=== PATIENT | male | born 1950 | race Caucasian/White ===

== ENCOUNTER 2016-10-22 15:02 | Inpatient (IN) | payer MEDICARE, OTHER ==
[~2016-10-22] VITALS: Ht 193 cm; Wt 110.4 kg
[2016-10-22] VITALS (7 sets, daily range): BP systolic 144–176; BP diastolic 65–88; PULSE 56–63; RESP 14–20; TEMP 98.8; O2SAT 93–96
[~2016-10-22 15:02] MED LIST: ASPI-147 PO; COUM6TAB PO; DOXY100C PO; FERR200T PO; FOLI1TAB4 PO; FURO1TAB62 PO; HUMALOG SQ; KETO0.5S2 RIGHT EYE; LANTUS2P SQ; MAGN250T2 PO; NEUR400C PO; OMEP20TA PO; OXYC1TAB13 PO; PROS5TAB PO; SENN8.6C PO; SOTA80 PO; TACR1 PO; TAMS0.4C4 PO
--- NOTE | 2016-10-22 17:03 | PD ---
HPI Chief Complaint: Abnormal Results Time Seen by Provider: 16:59 Travel History International Travel<30 days: No Contact w/Intl Traveler<30days: No Traveled to known affect area: No History of Present Illness HPI 66-year-old male that presents to the ED for evaluation of abnormal blood results. Per patient he went [place] the [place] to get his regular checkup and her blood work did show some blood in the urine and a low hemoglobin of 8 per mother and patient. Unfortunately patient did not bring any of these records but he was told by the [place] to come here to get evaluated. Patient states having some chronic back pain which is normal for him. He does tell me that for the past 5 days his been having more cough and runny nose as well as shortness of breath. He does also tell me that his legs have been getting more swollen and he is no longer taking Lasix secondary to some problems with his kidney. He does take warfarin for atrial fibrillation. He denies any chest pain. She denies any urinary or bowel movement issues. He denies any blood in the stool. Per patient he feels weak and tired. He denies any headache or lightheadedness. Per patient the pain on the back is 7 out of 10 but this is chronic and to take his pain medication for it. History of MRSA. Denies any abdominal pain. Patient has been gaining 6 pounds in the past week after losing 10 pounds the week prior. PFSH Past Medical History Arthritis: No Asthma: No Atrial Fibrillation: Yes Autoimmune Disease: No Blood Disorders: No Anxiety: Yes Depression: Yes Heart Rhythm Problems: Yes (atrial fibrillation) Cancer: No Cardiac Catheterization: Yes (2007, LOOP RECORDER 2015) Cardiovascular Problems: Yes (A. FIB) High Cholesterol: No Chemotherapy: No Chest Pain: No Congestive Heart Failure: No Cirrhosis: Yes (BEFORE TRANSPLANT) COPD: No Cerebrovascular Accident: No Diabetes: Yes Patient Takes Glucophage: No Diminished Hearing: No Endocrine: Yes Gastrointestinal Disorders: Yes (ULCERATIVE COLITIS HX) GERD: Yes Glaucoma: No Genitourinary: Yes Headaches: Yes (occasional) Hepatitis: Yes (B AND C) Hiatal Hernia: No Hypertension: Yes (& Hypotension) Immune Disorder: No Implanted Vascular Access Dvce: No Kidney Stones: Yes Musculoskeletal: Yes Neurologic: Yes Psychiatric: Yes Reproductive: No Respiratory: Yes Immunizations Current: Yes Migraines: No Myocardial Infarction: No Radiation Therapy: No Renal Failure: No Seizures: No Sickle Cell Disease: No Sleep Apnea: No Thyroid Disease: No Ulcer: No Tetanus Vaccination: < 5 Years Influenza Vaccination: Yes Past Surgical History Abdominal Surgery: Yes (liver transplant 2001) AICD: No Appendectomy: No Arteriovenous Shunt: No Cardiac Surgery: No Cholecystectomy: No Ear Surgery: No Endocrine Surgery: No Eye Surgery: No Genitourinary Surgery: No Gynecologic Surgery: No Insulin Pump: No Joint Replacement: No Neurologic Surgery: No Oral Surgery: No Pacemaker: No Thoracic Surgery: No Other Surgery: Yes (LIVER TRANSPLANT, STENTS IN LEFT ANKLE AND RIGHT LEG) Social History Alcohol Use: No Tobacco Use: No (QUIT 1997) Substance Use: No (marijuana, 3-4 years ago) Allergies-Medications (Allergen,Severity, Reaction): Coded Allergies: *MDRO Multi-Drug Resistant Organism (Verified Adverse Reaction, Unknown, ) MRSA (heel wound) - 07/23/16 Reported Meds & Prescriptions Reported Meds & Active Scripts Active Doxycycline Hyclate 100 Mg Cap 100 Mg PO BID 10 Days Coumadin (Warfarin) 6 Mg Tab 5 Mg PO DAILY@16 30 Days Sorine (Sotalol HCl) 80 Mg Tab 120 Mg PO Q12HR 30 Days Lantus Inj (Insulin Glargine) 100 Unit/Ml Inj 10 Units SQ HS 30 Days Reported Proscar (Finasteride) 5 Mg Tab 5 Mg PO HS Do not crush. Senna (Sennosides) 8.6 Mg Cap 17.2 Mg PO DAILY Feosol (Ferrous Sulfate) 200 Mg Tab 325 Mg PO TID Lasix (Furosemide) 20 Mg Tab 20 Mg PO BID Magnesium 250 Mg Tab 500 Mg PO DAILY Humalog Inj (Insulin Human Lispro) 1,000 Unit/10 Ml Vial 3-12 Units SQ ACHS Max dose at bedtime:( )units; sugars < 70,(0)units; sugars 150-199,(2)units; sugars 200-249,(4)units; sugars 250-299,(7)units; sugars 300-349,(10)units; sugars more than 349,(12)units. Omeprazole 20 Mg Tab 20 Mg PO DAILYAC Neurontin (Gabapentin) 400 Mg Cap 400 Mg PO Q8HR Prograf (Tacrolimus) 1 Mg Cap 1 Mg PO BID Ecotrin Low Strength (Aspirin) 81 Mg Tabdr 81 Mg PO DAILY Folate (Folic Acid) 1 Mg Tab 1 Mg PO BID Ketorolac Opth Drops 0.5% Drops 1 Drop RIGHT EYE QID Tamsulosin (Tamsulosin HCl) 0.4 Mg Cap 0.4 Mg PO HS Roxicodone (Oxycodone HCl) 5 Mg Tab 5 Mg PO Q6H PRN Review of Systems Except as stated in HPI: all other systems reviewed are Neg Physical Exam Narrative GENERAL: SKIN: Warm and dry. HEAD: Atraumatic. Normocephalic. EYES: Pupils equal and round 4 mm reactive to light and accommodation. No scleral icterus. No injection or drainage. ENT: No nasal bleeding or discharge. Mucous membranes pink and moist. Tongue is midline. No uvula deviation. NECK: Trachea midline. No JVD. CARDIOVASCULAR: Regular rate and rhythm. No murmurs, S3, S4. RESPIRATORY: No accessory muscle use. Clear to auscultation. Breath sounds equal bilaterally. GASTROINTESTINAL: Abdomen soft, non-tender, nondistended. Hepatic and splenic margins not palpable. MUSCULOSKELETAL: Extremities without clubbing, cyanosis, or edema. No obvious deformities. Full range of motion of the upper and lower extremities bilaterally. 2+ pulses bilaterally. Patient does have a reproducible pain in the lower back which appears to be chronic. NEUROLOGICAL: Awake and alert. No obvious cranial nerve deficits. Motor grossly within normal limits. Five out of 5 muscle strength in the arms and legs. Normal speech. PSYCHIATRIC: Appropriate mood and affect; insight and judgment normal. Data Data Last Documented VS Vital Signs Date Time Temp Pulse Resp B/P Pulse Ox O2 Delivery O2 Flow Rate FiO2 10/22/16 18:18 60 20 154/79 95 Room Air 10/22/16 15:05 98.8 Orders Electrocardiogram (10/22/16 16:20) Complete Blood Count With Diff (10/22/16 16:20) Comprehensive Metabolic Panel (10/22/16 16:20) Ckmb (Isoenzyme) Profile (10/22/16 16:20) Troponin I (10/22/16 16:20) B-Type Natriuretic Peptide (10/22/16 16:20) Prothrombin Time / Inr (Pt) (10/22/16 16:20) Act Partial Throm Time (Ptt) (10/22/16 16:20) Lipase (10/22/16 16:20) Urinalysis - C+S If Indicated (10/22/16 16:20) Magnesium (Mg) (10/22/16 16:20) Chest, Single Ap (10/22/16 16:20) Iv Access Insert/Monitor (10/22/16 16:20) Ecg Monitoring (10/22/16 16:20) Oximetry (10/22/16 16:20) Type And Screen (10/22/16 16:20) CKMB (10/22/16 16:45) CKMB% (10/22/16 16:45) Red Blood Cells (Rbc) (10/22/16 17:10) Phytonadione Inj (Vitamin K Inj) (10/22/16 18:30) Furosemide Inj (Lasix Inj) (10/22/16 18:45) Admit Order (Ed Use Only) (10/22/16 19:14) Consult Gastroenterology (10/22/16 ) Labs Laboratory Tests Test 10/22/16 10/22/16 10/22/16 16:45 17:10 18:10 White Blood Count 6.8 TH/MM3 Red Blood Count 3.21 MIL/MM3 Hemoglobin 9.0 GM/DL Hematocrit 26.5 % Mean Corpuscular Volume 82.6 FL Mean Corpuscular Hemoglobin 28.0 PG Mean Corpuscular Hemoglobin 33.8 % Concent Red Cell Distribution Width 15.5 % Platelet Count 156 TH/MM3 Mean Platelet Volume 7.8 FL Neutrophils (%) (Auto) 59.0 % Lymphocytes (%) (Auto) 28.2 % Monocytes (%) (Auto) 9.3 % Eosinophils (%) (Auto) 3.1 % Basophils (%) (Auto) 0.4 % Neutrophils # (Auto) 4.0 TH/MM3 Lymphocytes # (Auto) 1.9 TH/MM3 Monocytes # (Auto) 0.6 TH/MM3 Eosinophils # (Auto) 0.2 TH/MM3 Basophils # (Auto) 0.0 TH/MM3 CBC Comment DIFF FINAL Differential Comment Prothrombin Time 62.4 SEC Prothromb Time International 5.3 RATIO Ratio Activated Partial 62.0 SEC Thromboplast Time Sodium Level 135 MEQ/L Potassium Level 4.7 MEQ/L Chloride Level 103 MEQ/L Carbon Dioxide Level 27.1 MEQ/L Anion Gap 5 MEQ/L Blood Urea Nitrogen 31 MG/DL Creatinine 1.97 MG/DL Estimat Glomerular Filtration 34 ML/MIN Rate Random Glucose 147 MG/DL Calcium Level 8.0 MG/DL Magnesium Level 1.7 MG/DL Total Bilirubin 0.5 MG/DL Aspartate Amino Transf 45 U/L (AST/SGOT) Alanine Aminotransferase 19 U/L (ALT/SGPT) Alkaline Phosphatase 176 U/L Total Creatine Kinase 184 U/L Creatine Kinase MB 6.3 NG/ML Troponin I 0.02 NG/ML B-Type Natriuretic Peptide 396 PG/ML Total Protein 8.7 GM/DL Albumin 1.7 GM/DL Lipase 136 U/L Blood Type O POSITIVE Antibody Screen NEGATIVE Crossmatch Leukocyte-Reduced Red Blood Cells Blood Bank Comment Urine Color YELLOW Urine Turbidity HAZY Urine pH 6.0 Urine Specific [place] 1.019 Urine Protein 300 mg/dL Urine Glucose (UA) 70 mg/dL Urine Ketones NEG mg/dL Urine Occult Blood MOD Urine Nitrite NEG Urine Bilirubin NEG Urine Urobilinogen LESS THAN 2.0 MG/DL Urine Leukocyte Esterase TRACE Urine RBC 86 /hpf Urine WBC 6 /hpf Urine Squamous Epithelial <1 /hpf Cells Urine Hyaline Casts 7 /lpf Urine Mucus FEW /lpf Microscopic Urinalysis Comment CULT NOT INDICATED MDM Medical Decision Making Medical Screen Exam Complete: Yes Emergency Medical Condition: Yes Medical Record Reviewed: Yes Interpretation(s) Last Impressions Chest X-Ray 10/22/16 1620 Signed Impressions: Service Date/Time: October 14:41 - CONCLUSION: 1. Small right pleural effusion now noted with mild patchy opacity at the right lung base. Justin Olvera MD CBC Diagram 10/22/16 16:45 coags elevated with INR of 5.3 UA positive for UTI. BMP Diagram 10/22/16 16:45 LFTs and Lipase WNL BNP in the 300s Differential Diagnosis CHF exacerbation versus asthma versus COPD versus acute kidney injury versus intrafibrillation versus bleeding versus anemia versus altered mental status versus dehydration versus hematuria Narrative Course 66-year-old male that presents to the ED for evaluation of abnormal lab results. Patient was properly examined and was found to have signs and symptoms of unclear etiology at this time. She does appear to have signs and symptoms consistent with CHF exacerbation but cannot explain why patient is anemic. There is no sign of bleeding on exam. Her condition at this time is for labs and imaging. Patient is agreeable with this. Labs and imaging showed positive Hemoccult, anemia with a hemoglobin of 9 and an INR 5.3 as well as some fluid on the right long with the elevated BNP. I also UTI noted. Case was discussed in my attending Dr. Banuelos who was made aware of all findings and recommends vitamin K as well as admission and speaking with GI. I spoke with Dr. Lyon from GI who is agreeable with consult. Patient was given IV lasix. HEPAS, Dr Lechuga agrees to admission. Procedures EKG Prior to Arrival: No HemaPrompt Point of Care Internal Pos. & Neg. Controls: Passed Fecal Specimen Occult Blood: Positive Diagnosis Primary Impression: GI bleed Qualified Code: K92.2 - Gastrointestinal hemorrhage, unspecified gastrointestinal hemorrhage type Additional Impressions: CHF exacerbation Qualified Code: I50.9 - Acute on chronic congestive heart failure, unspecified congestive heart failure type Hypercoagulopathy UTI (urinary tract infection) Qualified Code: N30.01 - Acute cystitis with hematuria Admitting Information Admitting Physician Requests: Admit Benjamin Linares Oct 22, 2016 17:03
--- NOTE | 2016-10-22 17:09 | RADRPT ---
EXAM DATE/TIME: 10/22/2016 14:41 [facility] COMPARISON: CHEST SINGLE AP, July 16, 2016, 3:57. INDICATIONS : Patient has been short of breath for two weeks. MEDICAL HISTORY : Diabetes mellitus type II. SURGICAL HISTORY : Liver transplant. ENCOUNTER: Initial ACUITY: 2 weeks PAIN SCORE: 3/10 LOCATION: Left Ribs. FINDINGS: A single AP portable erect view of the chest was obtained and demonstrates a small right pleural effu martha. There is mild patchy opacity at the right lung base. The right costophrenic angle is blunted. T he heart size remains mildly prominent with no perihilar edema. The bony thorax remains intact. There are overlying electrocardiogram leads. CONCLUSION: 1. Small right pleural effusion now noted with mild patchy opacity at the right lung base. Justin Olvera MD on October 22, 2016 at 17:06 Board Certified Radiologist. This report was verified electronically.
[2016-10-22 17:33] LABS: BASOPHIL % 0.4 % (0.0-2.0); EOSINOPHIL # 0.2 TH/MM3 (0-0.4); EOSINOPHIL % 3.1 % (0.0-4.0); HEMATOCRIT 26.5 % (39.0-51.0); HEMO FLAGS DIFF FINAL; LYMPH % 28.2 % (9.0-44.0); LYMPHOCYTE # 1.9 TH/MM3 (1.0-4.8); MEAN CELL VOLUME 82.6 FL (80.0-100.0); MEAN CORPUSCULAR HGB CONC 33.8 % (32.0-36.0); MONO % 9.3 % (0.0-8.0); PLATELET COUNT 156 TH/MM3 (150-450); RED BLOOD COUNT 3.21 MIL/MM3 (4.50-5.90); RED CELL DISTRIBUTION WIDTH 15.5 % (11.6-17.2); WHITE BLOOD COUNT 6.8 TH/MM3 (4.0-11.0)
[2016-10-22 17:42] LABS: INTERNATIONAL NORMALIZED RATIO 5.3 RATIO; PROTHROMBIN TIME - PATIENT 62.4 SEC (9.8-11.6)
[2016-10-22 17:56] LABS: ALT (GPT) 19 U/L (12-78); ANION GAP 5 MEQ/L (5-15); AST (GOT) 45 U/L (15-37); BICARBONATE 27.1 MEQ/L (21.0-32.0); BLOOD UREA NITROGEN 31 MG/DL (7-18); CHLORIDE 103 MEQ/L (98-107); GLOMERULAR FILTRATION RATE 34 ML/MIN (>89); MAGNESIUM 1.7 MG/DL (1.5-2.5); POTASSIUM 4.7 MEQ/L (3.5-5.1); SODIUM (NA) 135 MEQ/L (136-145)
[2016-10-22 18:00] LABS: ALKALINE PHOSPHATASE 176 U/L (45-117); CREATINE KINASE 184 U/L (39-308); TOTAL BILIRUBIN ADULT 0.5 MG/DL (0.2-1.0)
[2016-10-22 18:13] LABS: CKMB 6.3 NG/ML (0.5-3.6)
[2016-10-22] MEDS ORDERED: PHYTONADIONE INJ 10 MG in SODIUM CHLORIDE 0.9% INJ 50 ML IV ONE (18:30)
[2016-10-22 18:32] LABS: BLOOD, URINE MOD (NEG); COMMENT (UR) CULT NOT INDICATED; CULTURE IF INDICATED CULT NOT INDICATED; GLUCOSE,URINE 70 mg/dL (NEG); HYALINE CAST, URINE 7 /lpf (RARE); KETONE, URINE NEG (NEG); MUCUS URINE FEW /lpf (OCC); NITRITE,URINE NEG (NEG); SQUAMOUS EPITHELIAL CELL URINE <1 /hpf (0-5); URINE COLOR YELLOW (YELLW/STRAW)
[2016-10-22] MEDS ORDERED: FUROSEMIDE 40 MG/4 ML VIAL IV PUSH ONE (18:45)
--- NOTE | 2016-10-22 18:57 | PD ---
Physical Exam Narrative I, Dr. Banuelos, have reviewed the advance practice practitioner's documentation and am in agreement, met with the patient face to face, made the diagnosis, and the medical decision making was done by me. *My assessment and Findings: Supratherapeutic INR with GI bleed 66yo M with PMH of afib on coumadin, CHF sent here for low hemoglobin. Pt is not complaining of any chest pain, sob, n/v, abdominal pain, weakness, numbness , black stool, hematemesis. Labs reviewed, H/H 9.0/26.5. BNP 396. BUN/ creatinine 31/1.97 mildly increased from baseline. UA showed moderate blood. WBC 6. INR is 5.3 and hemaprompt is positive. Pt given vitamin K 10mg IV. VS stable. GI consulted. Pt to be admitted for supratherapeutic INR and GI bleed. Data Data Last Documented VS Vital Signs Date Time Temp Pulse Resp B/P Pulse Ox O2 Delivery O2 Flow Rate FiO2 10/22/16 18:18 60 20 154/79 95 Room Air 10/22/16 15:05 98.8 Orders Electrocardiogram (10/22/16 16:20) Complete Blood Count With Diff (10/22/16 16:20) Comprehensive Metabolic Panel (10/22/16 16:20) Ckmb (Isoenzyme) Profile (10/22/16 16:20) Troponin I (10/22/16 16:20) B-Type Natriuretic Peptide (10/22/16 16:20) Prothrombin Time / Inr (Pt) (10/22/16 16:20) Act Partial Throm Time (Ptt) (10/22/16 16:20) Lipase (10/22/16 16:20) Urinalysis - C+S If Indicated (10/22/16 16:20) Magnesium (Mg) (10/22/16 16:20) Chest, Single Ap (10/22/16 16:20) Iv Access Insert/Monitor (10/22/16 16:20) Ecg Monitoring (10/22/16 16:20) Oximetry (10/22/16 16:20) Type And Screen (10/22/16 16:20) CKMB (10/22/16 16:45) CKMB% (10/22/16 16:45) Red Blood Cells (Rbc) (10/22/16 17:10) Phytonadione Inj (Vitamin K Inj) (10/22/16 18:30) Furosemide Inj (Lasix Inj) (10/22/16 18:45) Labs Laboratory Tests Test 10/22/16 10/22/16 10/22/16 16:45 17:10 18:10 White Blood Count 6.8 TH/MM3 Red Blood Count 3.21 MIL/MM3 Hemoglobin 9.0 GM/DL Hematocrit 26.5 % Mean Corpuscular Volume 82.6 FL Mean Corpuscular Hemoglobin 28.0 PG Mean Corpuscular Hemoglobin 33.8 % Concent Red Cell Distribution Width 15.5 % Platelet Count 156 TH/MM3 Mean Platelet Volume 7.8 FL Neutrophils (%) (Auto) 59.0 % Lymphocytes (%) (Auto) 28.2 % Monocytes (%) (Auto) 9.3 % Eosinophils (%) (Auto) 3.1 % Basophils (%) (Auto) 0.4 % Neutrophils # (Auto) 4.0 TH/MM3 Lymphocytes # (Auto) 1.9 TH/MM3 Monocytes # (Auto) 0.6 TH/MM3 Eosinophils # (Auto) 0.2 TH/MM3 Basophils # (Auto) 0.0 TH/MM3 CBC Comment DIFF FINAL Differential Comment Prothrombin Time 62.4 SEC Prothromb Time International 5.3 RATIO Ratio Activated Partial 62.0 SEC Thromboplast Time Sodium Level 135 MEQ/L Potassium Level 4.7 MEQ/L Chloride Level 103 MEQ/L Carbon Dioxide Level 27.1 MEQ/L Anion Gap 5 MEQ/L Blood Urea Nitrogen 31 MG/DL Creatinine 1.97 MG/DL Estimat Glomerular Filtration 34 ML/MIN Rate Random Glucose 147 MG/DL Calcium Level 8.0 MG/DL Magnesium Level 1.7 MG/DL Total Bilirubin 0.5 MG/DL Aspartate Amino Transf 45 U/L (AST/SGOT) Alanine Aminotransferase 19 U/L (ALT/SGPT) Alkaline Phosphatase 176 U/L Total Creatine Kinase 184 U/L Creatine Kinase MB 6.3 NG/ML Troponin I 0.02 NG/ML B-Type Natriuretic Peptide 396 PG/ML Total Protein 8.7 GM/DL Albumin 1.7 GM/DL Lipase 136 U/L Blood Type O POSITIVE Antibody Screen NEGATIVE Crossmatch Leukocyte-Reduced Red Blood Cells Blood Bank Comment Urine Color YELLOW Urine Turbidity HAZY Urine pH 6.0 Urine Specific [place] 1.019 Urine Protein 300 mg/dL Urine Glucose (UA) 70 mg/dL Urine Ketones NEG mg/dL Urine Occult Blood MOD Urine Nitrite NEG Urine Bilirubin NEG Urine Urobilinogen LESS THAN 2.0 MG/DL Urine Leukocyte Esterase TRACE Urine RBC 86 /hpf Urine WBC 6 /hpf Urine Squamous Epithelial <1 /hpf Cells Urine Hyaline Casts 7 /lpf Urine Mucus FEW /lpf Microscopic Urinalysis Comment CULT NOT INDICATED MDM Supervised Visit with MANDA: Yes Karolyn Banuelos DO Oct 22, 2016 18:56
--- NOTE | 2016-10-22 19:58 | HHI.HP ---
[facility] Admission Diagnosis GI bleed, anemia, elevated INR, UTI, CHF exacerbation Diagnoses: (1) GI bleed Diagnosis: Principal (2) A-fib Diagnosis: Principal (3) Supratherapeutic INR Diagnosis: Principal (4) UTI (urinary tract infection) Diagnosis: Principal (5) CHF (congestive heart failure) Diagnosis: Principal (6) Renal insufficiency Diagnosis: Principal (7) PNA (pneumonia) Diagnosis: Principal (8) DM (diabetes mellitus) Diagnosis: Principal (9) History of liver transplant Diagnosis: Principal Travel History International Travel<30 Days: No Contact w/Intl Traveler <30 Da: No Traveled to Known Affected Are: No History of Present Illness This is a 66-year-old male with a PMH of A. fib on Coumadin, Anxiety, Depression , Hepatitis B/C, Cirrhosis s/p Transplant, DM, CHF (Echo 07/16/16 w/ EF 50-55%) and DM who was sent to the ER from the [place] for abnormal labs w/ Hgb 8. No records available. Pt currently without complaints except for chronic back pain and lower extremity edema. On arrival, BP 149/72, HR 57, O2 sat 95% on RA , Afebrile. Hgb 9.0, previously 8.9 on 07/30/16. Hemoccult positive. Creatinine 1.97, previously 1.62 on 07/28/16. BNP 396. INR 5.3, s/p Vitamin K 10mg IV x1 in ER. U/a w/ UTI. CXR w/ small right pleural effusion and mild patchy opacity right lung base. Dr. Mallory consulted by ER physician, will evaluate in am. Review of Systems Except as stated in HPI: all other systems reviewed are Neg ROS: 14 point review of systems otherwise negative. Past Family Social History Past Medical History PMH: A. fib on Coumadin, Anxiety, Depression, Hepatitis B/C, Cirrhosis s/p Transplant, DM, CHF (Echo 07/16/16 w/ EF 50-55%) and DM Past Surgical History PAST SURGICAL HISTORY: Liver Transplant Allergies: Coded Allergies: *MDRO Multi-Drug Resistant Organism (Verified Adverse Reaction, Unknown, ) MRSA (heel wound) - 07/23/16 Family History PAST FAMILY HISTORY: Reviewed positive for DM. Social History PAST SOCIAL HISTORY: Negative for alcohol, tobacco or drugs. Physical Exam Vital Signs Vital Signs Date Time Temp Pulse Resp B/P Pulse Ox O2 Delivery O2 Flow Rate FiO2 10/22/16 18:18 60 20 154/79 95 Room Air 10/22/16 17:12 57 18 149/72 95 Room Air 10/22/16 17:11 20 95 Room Air 10/22/16 15:54 55 20 99 Room Air 10/22/16 15:05 98.8 56 14 162/71 93 Room Air Physical Exam PE: GENERAL: Middle-aged male in no acute distress. HEENT: PERRLA, EOMI. No scleral icterus or conjunctival pallor. No lid lag or facial droop. CARDIOVASCULAR: Regular rate and rhythm. No obvious murmurs to auscultation. No chest tenderness to palpation. RESPIRATORY: No obvious rhonchi or wheezing. Clear to auscultation. Breath sounds equal bilaterally. GASTROINTESTINAL: Abdomen soft, non-tender, nondistended. BS normal. MUSCULOSKELETAL: Extremities without clubbing, cyanosis, or edema. No obvious deformities. NEUROLOGICAL: Awake, alert and oriented x4. No focal neurologic deficits. Moving both upper and lower extremities spontaneously. Laboratory Laboratory Tests Test 10/22/16 10/22/16 10/22/16 16:45 17:10 18:10 White Blood Count 6.8 Red Blood Count 3.21 Hemoglobin 9.0 Hematocrit 26.5 Mean Corpuscular Volume 82.6 Mean Corpuscular Hemoglobin 28.0 Mean Corpuscular Hemoglobin 33.8 Concent Red Cell Distribution Width 15.5 Platelet Count 156 Mean Platelet Volume 7.8 Neutrophils (%) (Auto) 59.0 Lymphocytes (%) (Auto) 28.2 Monocytes (%) (Auto) 9.3 Eosinophils (%) (Auto) 3.1 Basophils (%) (Auto) 0.4 Neutrophils # (Auto) 4.0 Lymphocytes # (Auto) 1.9 Monocytes # (Auto) 0.6 Eosinophils # (Auto) 0.2 Basophils # (Auto) 0.0 CBC Comment DIFF FINAL Differential Comment Prothrombin Time 62.4 Prothromb Time International 5.3 Ratio Activated Partial 62.0 Thromboplast Time Sodium Level 135 Potassium Level 4.7 Chloride Level 103 Carbon Dioxide Level 27.1 Anion Gap 5 Blood Urea Nitrogen 31 Creatinine 1.97 Estimat Glomerular Filtration 34 Rate Random Glucose 147 Calcium Level 8.0 Magnesium Level 1.7 Total Bilirubin 0.5 Aspartate Amino Transf 45 (AST/SGOT) Alanine Aminotransferase 19 (ALT/SGPT) Alkaline Phosphatase 176 Total Creatine Kinase 184 Creatine Kinase MB 6.3 Troponin I 0.02 B-Type Natriuretic Peptide 396 Total Protein 8.7 Albumin 1.7 Lipase 136 Blood Type O POSITIVE Antibody Screen NEGATIVE Crossmatch Leukocyte-Reduced Red Blood Cells Blood Bank Comment Urine Color YELLOW Urine Turbidity HAZY Urine pH 6.0 Urine Specific [place] 1.019 Urine Protein 300 Urine Glucose (UA) 70 Urine Ketones NEG Urine Occult Blood MOD Urine Nitrite NEG Urine Bilirubin NEG Urine Urobilinogen LESS THAN 2.0 Urine Leukocyte Esterase TRACE Urine RBC 86 Urine WBC 6 Urine Squamous Epithelial <1 Cells Urine Hyaline Casts 7 Urine Mucus FEW Microscopic Urinalysis Comment CULT NOT INDICATED Result Diagram: 10/22/16 1645 10/22/16 1645 Assessment and Plan Problem List: (1) GI bleed ICD Code: K92.2 Status: Acute (2) A-fib ICD Code: I48.91 Status: Acute (3) Supratherapeutic INR ICD Code: R79.1 Status: Acute (4) UTI (urinary tract infection) ICD Code: N39.0 Status: Acute (5) PNA (pneumonia) ICD Code: J18.9 Status: Acute (6) CHF (congestive heart failure) ICD Code: I50.9 Status: Acute (7) Renal insufficiency ICD Code: N28.9 Status: Acute (8) DM (diabetes mellitus) ICD Code: E11.9 Status: Chronic (9) History of liver transplant ICD Code: Z94.4 Status: Chronic Assessment and Plan A/P: 1. GI Bleed: sent to ER from [place] for Hgb 8, currently Hgb 9.0 however Hemoccult +, on Coumadin w/ supratherapeutic INR. Dr. Mallory consulted by ER physician, will evaluate in am. Hemodynamically stable at this time. Repeat Hgb/Hct. S/p Vitamin K for reversal, repeat INR in am. Type & Screen for possible transfusion. 2. A-fib: Chronic. Resume home Sotalol. Hold Coumadin in light of GI Bleed and elevated INR. 3. Supratherapeutic INR: INR 5.3, s/p Vitamin K 10mg IV x1 in ER. Repeat INR. Hold Coumadin. 4. UTI: U/a w/ UTI. Start IV Rocephin. 5. Renal Insufficiency: Acute on Chronic. Creatinine 1.97, previously 1.62 on 07/28/16. Caution w/ IVF in light of CHF. 6. PNA: CXR w/ mild patchy opacity RLL, images reviewed by me. Reports + cough and nasal congestion x2 days. Start IV Rocephin/Zithro. 7. CHF: Acute on Chronic. Diastolic. Echo 07/16/16 w/ EF 50-55%. On Lasix 20mg bid, will resume, caution w/ renal insufficiency. 8. Liver Transplant: H/o Cirrhosis s/p Liver Transplant, resume Tacrolimus. 9. DM: Sliding scale w/ Accu-Cheks. Resume home Lantus. 10. DVT Prophylaxis: Pharmacologic contraindication in light of GI Bleed. 11. Social work for d/c planning as needed. 12. Case discussed w/ ER physician at length. Physician Certification 2 Midnight Certification Type: Admission for Inpatient Services Order for Inpatient Services The services are ordered in accordance with Medicare regulations or non- Medicare payer requirements, as applicable. In the case of services not specified as inpatient-only, they are appropriately provided as inpatient services in accordance with the 2-midnight benchmark. Estimated LOS (days): 2 days is the estimated time the patient will need to remain in the hospital, assuming treatment plan goals are met and no additional complications. Post-Hospital Plan: Not yet determined Problem Qualifiers (1) GI bleed: Qualified Code: K92.2 - Gastrointestinal hemorrhage, unspecified gastrointestinal hemorrhage type (2) UTI (urinary tract infection): Qualified Code: N30.01 - Acute cystitis with hematuria Anna Lechuga MD Oct 22, 2016 19:58
[2016-10-22] MEDS ORDERED: SODIUM CHLORIDE 0.9% FLUSH 5 ML FLUSH FLUSH PRN (20:00)
[2016-10-22] MEDS ORDERED: BISACODYL 10 MG SUPP PR PRN (20:00)
[2016-10-22] MEDS ORDERED: ONDANSETRON HCL 4 MG/2 ML VIAL IVP PRN (20:00)
[2016-10-22] MEDS ORDERED: GLUCAGON 1 MG/ML VIAL OTHER PRN (20:00)
[2016-10-22] MEDS ORDERED: DEXTROSE 50% IN WATER 50 ML VIAL(D50) IV PUSH PRN (20:00)
[2016-10-22] MEDS ORDERED: ACETAMINOPHEN 325 MG TAB PO PRN (20:00)
[2016-10-22] MEDS ORDERED: MORPHINE SULFATE 4 MG/ML INJ IV PRN (20:00)
[2016-10-22] MEDS: cefTRIAXone INJ 1,000 MG in SODIUM CHLORIDE 0.9% INJ 100 ML IV SCH (20:37)
[2016-10-22] MEDS: FUROSEMIDE 20 MG TAB PO SCH (20:38)
[2016-10-22] MEDS: TAMSULOSIN HCL 0.4 MG CAP PO SCH (20:38)
[2016-10-22] MEDS: PANTOPRAZOLE SODIUM 40 MG VIAL IV PUSH SCH (20:39)
[2016-10-22] MEDS: INSULIN DETEMIR 100 UNITS/ML VIAL SQ SCH (20:39)
[2016-10-22] MEDS: SODIUM CHLORIDE 0.9% FLUSH 5 ML FLUSH FLUSH SCH (20:39)
[2016-10-22] MEDS: INSULIN ASPART SUPPLEMENTAL SCALE SQ SCH (21:00)
[2016-10-22] MEDS: SOTALOL HCL 80 MG TAB PO SCH (21:43)
[2016-10-22] MEDS: FINASTERIDE 5 MG TAB PO SCH (21:43)
[2016-10-22] MEDS: FOLIC ACID 1 MG TAB PO SCH (21:43)
[2016-10-22] MEDS: TACROLIMUS 1 MG CAP PO SCH (21:44)
[2016-10-22] MEDS: KETOROLAC TROMETHAMINE 0.5% OPHT SOLN 5 ML BTL RIGHT EYE SCH (21:44)
[2016-10-22] MEDS: GABAPENTIN 400 MG CAP PO SCH (21:48)
[2016-10-23] VITALS (8 sets, daily range): BP systolic 125–175; BP diastolic 59–94; PULSE 55–64; RESP 16–18; TEMP 96.8–98.5; O2SAT 96–97
[2016-10-23] MEDS: AZITHROMYCIN INJ 500 MG in SODIUM CHLOR 0.9% 250 ML INJ 250 ML IV SCH ×2 (00:27→23:00)
[2016-10-23] MEDS: ACETAMINOPHEN/HYDROcodone 325 MG/5 MG TAB PO PRN ×4 (02:13→23:46)
[2016-10-23] MEDS: GABAPENTIN 400 MG CAP PO SCH ×3 (05:32→20:48)
[2016-10-23] MEDS: INSULIN ASPART SUPPLEMENTAL SCALE SQ SCH ×4 (05:52→20:58)
[2016-10-23 07:01] LABS: INTERNATIONAL NORMALIZED RATIO 1.6 RATIO; PROTHROMBIN TIME - PATIENT 17.5 SEC (9.8-11.6)
[2016-10-23 07:14] LABS: BASOPHIL % 0.3 % (0.0-2.0); EOSINOPHIL # 0.2 TH/MM3 (0-0.4); EOSINOPHIL % 3.4 % (0.0-4.0); HEMATOCRIT 25.7 % (39.0-51.0); HEMO FLAGS DIFF FINAL; LYMPH % 24.9 % (9.0-44.0); LYMPHOCYTE # 1.6 TH/MM3 (1.0-4.8); MEAN CELL VOLUME 82.6 FL (80.0-100.0); MEAN CORPUSCULAR HEMOGLOBIN 28.3 PG (27.0-34.0); MEAN CORPUSCULAR HGB CONC 34.2 % (32.0-36.0); MONO % 8.1 % (0.0-8.0); NEUT % 63.3 % (16.0-70.0); PLATELET COUNT 149 TH/MM3 (150-450); RED CELL DISTRIBUTION WIDTH 15.4 % (11.6-17.2); WHITE BLOOD COUNT 6.2 TH/MM3 (4.0-11.0)
[2016-10-23 07:20] LABS: ALT (GPT) 17 U/L (12-78); ANION GAP 6 MEQ/L (5-15); AST (GOT) 39 U/L (15-37); BICARBONATE 26.9 MEQ/L (21.0-32.0); BLOOD UREA NITROGEN 30 MG/DL (7-18); CHLORIDE 104 MEQ/L (98-107); GLOMERULAR FILTRATION RATE 34 ML/MIN (>89); POTASSIUM 4.3 MEQ/L (3.5-5.1); SODIUM (NA) 137 MEQ/L (136-145)
[2016-10-23 07:23] LABS: ALKALINE PHOSPHATASE 169 U/L (45-117); TOTAL BILIRUBIN ADULT 0.6 MG/DL (0.2-1.0)
--- NOTE | 2016-10-23 08:58 | PD.CONS ---
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 The patient reports that he has not been there in at least 5-10 years because every time he goes, he gets a bill for $7,000. He states he does not wish to follow up with them again. He is now followed at the [facility] in [place] for his hepatology needs and reports that they are the ones that monitor his levels and adjust his medications as needed. He reports that he does not follow with a admissions coordinator, nor does he desire to. Of note, there is a reported history of Hepatitis B and C in the MR, although the patient denies this and he had a negative hepatitis profile in 2011. He was vaccinated for Hepatitis B, although he cannot recall if he was vaccinated for Hepatitis A or not. He does have a hx of Ulcerative Colitis, but states he has not had issues with this in over 10 years. He last had a colonoscopy about 2 years ago at the [facility]. He was sent to the ER by the [facility] after he was noted to have anemia with a hgb of 8.0. The patient reports that he has been more fatigued than usual for a few weeks, but has not had any GI symptoms such as nausea, vomiting, reflux, decreased appetite, bowel changes, constipation, diarrhea, melena, or hematochezia. He does have an intermittent dull ache in his LUQ- which is not related to food intake or movement. He reports that this is very mild and that it comes and goes and is more of a discomfort than actual pain. He cannot identify any aggravating or alleviating factors. He takes coumadin for atrial fibrillation and was noted to have H/H of 8.8/25.7 on admission with hemoccult positive stool. His INR was 5.3 on admission and he was given Vitamin K 10mg sq and this is now 1.6. He cannot recall if he took his coumadin yesterday. 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 He had negative Hepatitis Profile back in 2011. He reports that he had the series for vaccination for Hepatitis B. Past Surgical History Colonoscopy Liver transplant Liver biopsy (Kenisha Lopez) Coded Allergies: *MDRO Multi-Drug Resistant Organism (Verified Adverse Reaction, Unknown, ) MRSA (heel wound) - 07/23/16 Medications Allergies Coded Allergies Type Severity Reaction Last Updated Verified *MDRO Multi-Drug Resistant Organism Adverse Reaction Unknown 10/22/16 Yes Active Scripts Medications Dose Route/Sig Days Date Category Dose Instructions Doxycycline Hyclate 100 Mg Cap 100 Mg PO BID 10 07/30/16 Rx Coumadin (Warfarin) 6 Mg Tab 5 Mg PO DAILY@16 30 07/29/16 Rx Sorine (Sotalol HCl) 80 Mg Tab 120 Mg PO Q12HR 30 07/29/16 Rx Lantus Inj (Insulin Glargine) 100 Unit/Ml Inj 10 Units SQ HS 30 07/29/16 Rx Proscar (Finasteride) 5 Mg Tab 5 Mg PO HS 07/15/16 Reported Do not crush. Senna (Sennosides) 8.6 Mg Cap 17.2 Mg PO DAILY 07/15/16 Reported Feosol (Ferrous Sulfate) 200 Mg Tab 325 Mg PO TID 07/15/16 Reported Lasix (Furosemide) 20 Mg Tab 20 Mg PO BID 07/15/16 Reported Magnesium 250 Mg Tab 500 Mg PO DAILY 07/15/16 Reported Humalog Inj (Insulin Human Lispro) 1,000 Unit/10 Ml Vial 3-12 Units SQ ACHS 07/15/16 Reported Max dose at bedtime:( )units; sugars < 70,(0)units ; sugars 150-199,(2)units; sugars 200-249,(4)units; sugars 250-299,(7)units; sugars 300-349,(10)units; sugars more than 349,(12)units. Omeprazole 20 Mg Tab 20 Mg PO DAILYAC 07/15/16 Reported Neurontin (Gabapentin) 400 Mg Cap 400 Mg PO Q8HR 07/15/16 Reported Prograf (Tacrolimus) 1 Mg Cap 1 Mg PO BID 07/15/16 Reported Ecotrin Low Strength (Aspirin) 81 Mg Tabdr 81 Mg PO DAILY 07/15/16 Reported Folate (Folic Acid) 1 Mg Tab 1 Mg PO BID 07/15/16 Reported Ketorolac Opth Drops 0.5% Drops 1 Drop RIGHT EYE QID 07/15/16 Reported Tamsulosin (Tamsulosin HCl) 0.4 Mg Cap 0.4 Mg PO HS 07/15/16 Reported Roxicodone (Oxycodone HCl) 5 Mg Tab 5 Mg PO Q6H PRN 07/15/16 Reported Family History Denies any family hx of autoimmune disorders or esophageal/gastric/colorectal cancer Social History No use of tobacco, etoh, or illicit drug use. Did drink occasionally prior to liver transplant, never a heavy drinker (Kenisha Lopez) Review of Systems Constitutional: COMPLAINS OF: Fatigue, DENIES: Weight loss, Change in appetite Respiratory: DENIES: Cough Cardiovascular: DENIES: Chest pain Gastrointestinal: COMPLAINS OF: Abdominal pain, DENIES: Black stools, Bloody stools, Constipation, Diarrhea, Nausea, Vomiting, Anorexia, Swelling of Abdomen , Heartburn, Hematemesis Integumentary: DENIES: Abnormal pigmentation Hematologic/lymphatic: DENIES: Bruising Neurologic: DENIES: Headache Psychiatric: DENIES: Confusion (Kenisha Lopez) GI Exam Vitals I&O Vital Signs Date Time Temp Pulse Resp B/P Pulse Ox O2 Delivery O2 Flow Rate FiO2 10/23/16 04:00 96.8 60 16 145/85 96 10/23/16 02:00 64 10/23/16 01:51 97.8 62 17 155/86 96 10/23/16 00:28 64 18 125/59 97 Room Air 10/22/16 23:07 62 18 144/65 93 Room Air 10/22/16 21:01 60 18 154/70 95 Room Air 10/22/16 20:56 63 18 176/88 96 Room Air 10/22/16 18:18 60 20 154/79 95 Room Air 10/22/16 17:12 57 18 149/72 95 Room Air 10/22/16 17:11 20 95 Room Air 10/22/16 15:54 55 20 99 Room Air 10/22/16 15:05 98.8 56 14 162/71 93 Room Air I/O 10/22/16 10/22/16 10/22/16 10/23/16 10/23/16 10/23/16 07:00 15:00 23:00 07:00 15:00 23:00 Output Total 600 ml 550 ml Balance -600 ml -550 ml Output Urine Total 600 ml 550 ml # Voids 2 Imaging Last Impressions Chest X-Ray 10/22/16 1620 Signed Impressions: Service Date/Time: October 14:41 - CONCLUSION: 1. Small right pleural effusion now noted with mild patchy opacity at the right lung base. Justin Olvera MD Laboratory Test 10/22/16 10/22/16 10/22/16 10/23/16 16:45 17:10 18:10 05:50 White Blood Count 6.8 TH/MM3 6.2 TH/MM3 Red Blood Count 3.21 MIL/MM3 3.10 MIL/MM3 Hemoglobin 9.0 GM/DL 8.8 GM/DL Hematocrit 26.5 % 25.7 % Mean Corpuscular Volume 82.6 FL 82.6 FL Mean Corpuscular Hemoglobin 28.0 PG 28.3 PG Mean Corpuscular Hemoglobin 33.8 % 34.2 % Concent Red Cell Distribution Width 15.5 % 15.4 % Platelet Count 156 TH/MM3 149 TH/MM3 Mean Platelet Volume 7.8 FL 7.7 FL Neutrophils (%) (Auto) 59.0 % 63.3 % Lymphocytes (%) (Auto) 28.2 % 24.9 % Monocytes (%) (Auto) 9.3 % 8.1 % Eosinophils (%) (Auto) 3.1 % 3.4 % Basophils (%) (Auto) 0.4 % 0.3 % Neutrophils # (Auto) 4.0 TH/MM3 4.0 TH/MM3 Lymphocytes # (Auto) 1.9 TH/MM3 1.6 TH/MM3 Monocytes # (Auto) 0.6 TH/MM3 0.5 TH/MM3 Eosinophils # (Auto) 0.2 TH/MM3 0.2 TH/MM3 Basophils # (Auto) 0.0 TH/MM3 0.0 TH/MM3 CBC Comment DIFF FINAL DIFF FINAL Differential Comment Prothrombin Time 62.4 SEC 17.5 SEC Prothromb Time International 5.3 RATIO 1.6 RATIO Ratio Activated Partial 62.0 SEC Thromboplast Time Sodium Level 135 MEQ/L 137 MEQ/L Potassium Level 4.7 MEQ/L 4.3 MEQ/L Chloride Level 103 MEQ/L 104 MEQ/L Carbon Dioxide Level 27.1 MEQ/L 26.9 MEQ/L Anion Gap 5 MEQ/L 6 MEQ/L Blood Urea Nitrogen 31 MG/DL 30 MG/DL Creatinine 1.97 MG/DL 2.00 MG/DL Estimat Glomerular Filtration 34 ML/MIN 34 ML/MIN Rate Random Glucose 147 MG/DL 142 MG/DL Calcium Level 8.0 MG/DL 7.9 MG/DL Magnesium Level 1.7 MG/DL Total Bilirubin 0.5 MG/DL 0.6 MG/DL Aspartate Amino Transf 45 U/L 39 U/L (AST/SGOT) Alanine Aminotransferase 19 U/L 17 U/L (ALT/SGPT) Alkaline Phosphatase 176 U/L 169 U/L Total Creatine Kinase 184 U/L Creatine Kinase MB 6.3 NG/ML Troponin I 0.02 NG/ML B-Type Natriuretic Peptide 396 PG/ML Total Protein 8.7 GM/DL 8.6 GM/DL Albumin 1.7 GM/DL 1.6 GM/DL Lipase 136 U/L Blood Type O POSITIVE Antibody Screen NEGATIVE Crossmatch Leukocyte-Reduced Red Blood Cells Blood Bank Comment Urine Color YELLOW Urine Turbidity HAZY Urine pH 6.0 Urine Specific [place] 1.019 Urine Protein 300 mg/dL Urine Glucose (UA) 70 mg/dL Urine Ketones NEG mg/dL Urine Occult Blood MOD Urine Nitrite NEG Urine Bilirubin NEG Urine Urobilinogen LESS THAN 2.0 MG/DL Urine Leukocyte Esterase TRACE Urine RBC 86 /hpf Urine WBC 6 /hpf Urine Squamous Epithelial <1 /hpf Cells Urine Hyaline Casts 7 /lpf Urine Mucus FEW /lpf Microscopic Urinalysis Comment CULT NOT INDICATED Physical Examination HEENT: Normocephalic; atraumatic; no jaundice. CHEST: CTA CARDIAC: Irregular ABDOMEN: Soft, nondistended, nontender; no hepatosplenomegaly; bowel sounds are present in all four quadrants. EXTREMITIES: Drsg right foot d/i SKIN: No jaundice, rash SUGAR REFINER: No focal deficits; alert and oriented times three. (Kenisha Lopez) Assessment and Plan Plan ASSESSMENT: - Anemia with hemoccult positive stool. Pt referred from [facility] for anemia. H/H 8.8/25.7. He has been more fatigued for a few weeks but has not seen any obvious blood loss. Last EGD/Colonoscopy was at the [facility] ~2 years ago. - LUQ discomfort. Intermittent dull ache in his LUQ- which is not related to food intake or movement and no aggravating or alleviating factors. - Coagulopathy secondary to coumadin use. INR was 5.3 on admission. S/P Vitamin K, now 1.6. - S/P Liver transplant in 2001 at [facility] for liver cirrhosis secondary to primary sclerosing cholangitis. He no longer follows with the [facility] or his admissions coordinator. He reports all of his followup is now done at the [facility] in [place]. He does not wish to be re-established with [place] because of funding issues. 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 He is on Prograf 2mg po BID at home. He states that he has been stable on this for quite some time. LFTs stable. Tacrolimus level 5.7. - Chronic kidney disease. - Atrial fibrillation, coumadin on hold. - UTI/PNA, Abx per primary - Nonhealing diabetic foot ulcer right foot, CHF, PVD, DM, Neuropathy, HTN per primary. PLAN: - Plan for egd/colonoscopy on Wednesday - Obtain consents - ELENA - Clear liquids Wednesday - NPO after MN Wednesday night - Golytely prep Wednesday afternoon - Cont. PPI - Cont. Tacrolimus - Monitor HH - Transfuse as necessary - Supportive care - If anticoagulation needs to be started, consider lovenox so that this could be hold for procedures - Notify GI if started on anticoagulation - Further recommendations to follow based on results of above - Pt seen and examined by Dr. Mallory and myself and this note is written on his behalf (Kenisha Lopez) Physician Comments Seen and examined with Ms. John SHIRLEY, no active bleeding. Correct INR, egd/ colonoscopy planned for wednesday unless active bleeding. will follow, thank you ( David Mallory MD) Kenisha Lopez Oct 23, 2016 08:58 David Mallory MD Oct 23, 2016 17:23
[2016-10-23] MEDS: FERROUS SULFATE 325 MG (65 MG ELEMENTAL IRON) TAB PO SCH ×3 (09:15→18:00)
[2016-10-23] MEDS: PANTOPRAZOLE SODIUM 40 MG VIAL IV PUSH SCH ×2 (09:15→20:46)
[2016-10-23] MEDS: FUROSEMIDE 20 MG TAB PO SCH ×2 (09:15→20:47)
[2016-10-23] MEDS: FOLIC ACID 1 MG TAB PO SCH ×2 (09:15→20:49)
[2016-10-23] MEDS: SOTALOL HCL 80 MG TAB PO SCH ×2 (09:15→20:47)
[2016-10-23] MEDS: KETOROLAC TROMETHAMINE 0.5% OPHT SOLN 5 ML BTL RIGHT EYE SCH ×4 (09:16→21:08)
[2016-10-23] MEDS: SODIUM CHLORIDE 0.9% FLUSH 5 ML FLUSH FLUSH SCH ×2 (09:16→20:46)
[2016-10-23] MEDS: TACROLIMUS 1 MG CAP PO SCH ×2 (09:20→20:47)
--- NOTE | 2016-10-23 16:47 | EKG ---
Date Performed: 10/22/2016 Time Performed: 17:27:35 PTAGE: 66 years EKG: SINUS BRADYCARDIA VOLTAGE CRITERIA FOR LVH Left axis deviation. Intraventricular conduction disturbance. Can not exclude anterior myocardial infarction - age Indeterminate When compared to pre vious tracing, QRS is somewhat wider and The heart rate is slower. ST-T chages are unchanged. ABNORMA L ECG PREVIOUS TRACING : 07/23/2016 06.11 DOCTOR: Jose Howell Interpretating Date/Time 10/23/2016 16:46:33
[2016-10-23 17:41] LABS: HEMATOCRIT 25.9 % (39.0-51.0); REVIEW FLAG FINAL
[2016-10-23] MEDS ORDERED: OMNI1SUS RIGHT EYE (19:24)
[2016-10-23] MEDS ORDERED: WHIT1OIN (19:24)
[2016-10-23] MEDS: cefTRIAXone INJ 1,000 MG in SODIUM CHLORIDE 0.9% INJ 100 ML IV SCH (20:46)
[2016-10-23] MEDS: TAMSULOSIN HCL 0.4 MG CAP PO SCH (20:47)
[2016-10-23] MEDS: FINASTERIDE 5 MG TAB PO SCH (20:48)
[2016-10-23] MEDS: INSULIN DETEMIR 100 UNITS/ML VIAL SQ SCH (20:49)
[2016-10-24] VITALS: BP 140/78; PULSE 54; RESP 15; TEMP 97.4; O2SAT 96
[2016-10-24 04:00] VITALS: BP 144/84; PULSE 58; RESP 16; TEMP 96.3; O2SAT 97
[2016-10-24] MEDS: GABAPENTIN 400 MG CAP PO SCH ×2 (05:03→13:01)
[2016-10-24] MEDS: INSULIN ASPART SUPPLEMENTAL SCALE SQ SCH ×2 (05:06→11:16)
[2016-10-24 06:27] LABS: AUTOMATED NEUTROPHIL # 4.4 TH/MM3 (1.8-7.7); BASOPHIL % 0.5 % (0.0-2.0); EOSINOPHIL # 0.3 TH/MM3 (0-0.4); EOSINOPHIL % 4.5 % (0.0-4.0); HEMO FLAGS DIFF FINAL; LYMPH % 25.4 % (9.0-44.0); LYMPHOCYTE # 1.9 TH/MM3 (1.0-4.8); MEAN CELL VOLUME 83.5 FL (80.0-100.0); MEAN CORPUSCULAR HEMOGLOBIN 27.9 PG (27.0-34.0); MEAN CORPUSCULAR HGB CONC 33.4 % (32.0-36.0); MONO % 9.7 % (0.0-8.0); NEUT % 59.9 % (16.0-70.0); PLATELET COUNT 170 TH/MM3 (150-450); RED BLOOD COUNT 3.36 MIL/MM3 (4.50-5.90); RED CELL DISTRIBUTION WIDTH 15.3 % (11.6-17.2); WHITE BLOOD COUNT 7.4 TH/MM3 (4.0-11.0)
[2016-10-24 06:35] LABS: INTERNATIONAL NORMALIZED RATIO 1.3 RATIO; PROTHROMBIN TIME - PATIENT 14.6 SEC (9.8-11.6)
[2016-10-24 08:00] VITALS: BP 137/73; PULSE 56; RESP 18; TEMP 97.8; O2SAT 99
[2016-10-24] MEDS: SODIUM CHLORIDE 0.9% FLUSH 5 ML FLUSH FLUSH SCH (10:01)
[2016-10-24] MEDS: PANTOPRAZOLE SODIUM 40 MG VIAL IV PUSH SCH (10:01)
[2016-10-24] MEDS: FERROUS SULFATE 325 MG (65 MG ELEMENTAL IRON) TAB PO SCH ×2 (10:02→13:02)
[2016-10-24] MEDS: FUROSEMIDE 20 MG TAB PO SCH (10:02)
[2016-10-24] MEDS: TACROLIMUS 1 MG CAP PO SCH (10:02)
[2016-10-24] MEDS: FOLIC ACID 1 MG TAB PO SCH (10:02)
[2016-10-24] MEDS: SOTALOL HCL 80 MG TAB PO SCH (10:02)
[2016-10-24] MEDS: KETOROLAC TROMETHAMINE 0.5% OPHT SOLN 5 ML BTL RIGHT EYE SCH ×2 (10:08→13:02)
[2016-10-24 10:22] VITALS: PULSE 53
[2016-10-24 12:00] VITALS: BP 169/93; PULSE 65; RESP 20; TEMP 97.2; O2SAT 96
[2016-10-24] MEDS ORDERED: LACTULOSE SYRUP 20 GM/30 ML CUP PO SCH (12:45)
--- NOTE | 2016-10-24 14:17 | HHI.GIFU ---
Subjective Remarks Resting in chair. No GI bleeding. States he has not had a bowel movement and would like something to help him move his bowels. (Kenisha Lopez) Objective Vitals I&O Vital Signs Date Time Temp Pulse Resp B/P Pulse Ox O2 Delivery O2 Flow Rate FiO2 10/24/16 12:00 97.2 65 20 169/93 96 10/24/16 10:22 53 10/24/16 08:00 97.8 56 18 137/73 99 10/24/16 04:00 96.3 58 16 144/84 97 10/24/16 00:45 18 10/24/16 00:00 97.4 54 15 140/78 96 10/23/16 20:00 97.0 59 16 140/86 97 10/23/16 16:00 97.6 56 16 167/88 96 I/O 10/23/16 10/23/16 10/23/16 10/24/16 10/24/16 10/24/16 07:00 15:00 23:00 07:00 15:00 23:00 Intake Total 240 ml Output Total 550 ml 325 ml Balance -550 ml -85 ml Intake Oral 240 ml Output Urine Total 550 ml 325 ml Laboratory Laboratory Tests Test 10/23/16 10/24/16 16:37 05:31 Hemoglobin 8.7 9.4 Hematocrit 25.9 28.0 White Blood Count 7.4 Red Blood Count 3.36 Mean Corpuscular Volume 83.5 Mean Corpuscular Hemoglobin 27.9 Mean Corpuscular Hemoglobin 33.4 Concent Red Cell Distribution Width 15.3 Platelet Count 170 Mean Platelet Volume 7.7 Neutrophils (%) (Auto) 59.9 Lymphocytes (%) (Auto) 25.4 Monocytes (%) (Auto) 9.7 Eosinophils (%) (Auto) 4.5 Basophils (%) (Auto) 0.5 Neutrophils # (Auto) 4.4 Lymphocytes # (Auto) 1.9 Monocytes # (Auto) 0.7 Eosinophils # (Auto) 0.3 Basophils # (Auto) 0.0 CBC Comment DIFF FINAL Differential Comment Prothrombin Time 14.6 Prothromb Time International 1.3 Ratio Imaging Last Impressions Chest X-Ray 10/22/16 1620 Signed Impressions: Service Date/Time: October 14:41 - CONCLUSION: 1. Small right pleural effusion now noted with mild patchy opacity at the right lung base. Justin Olvera MD Physical Exam HEENT: Normocephalic; atraumatic; no jaundice. CHEST: CTA CARDIAC: RRR ABDOMEN: Soft, nondistended, nontender; no hepatosplenomegaly; bowel sounds are present in all four quadrants. EXTREMITIES: No clubbing, cyanosis, or edema. SKIN: Normal; no rash; no jaundice. CHOCOLATE COATER: No focal deficits; alert and oriented times three. (Kenisha LopezP) Assessment and Plan Plan ASSESSMENT: - Anemia with hemoccult positive stool. Pt referred from [facility] for anemia. H/H has remained stable 9.4/28.0. He has been more fatigued for a few weeks but has not seen any obvious blood loss. Last EGD/Colonoscopy was at the [facility] ~2 years ago. If patient is still hospitalized on Wednesday, we can schedule for EGD/Colonoscopy. If he is discharged, this can be done as outpatient- as he is not having any obvious bleeding and his HH has remained stable. - Constipation. Will give a dose of lactulose. - LUQ discomfort. Intermittent dull ache in his LUQ- which is not related to food intake or movement and no aggravating or alleviating factors. IMPROVED. - Coagulopathy secondary to coumadin use. INR was 5.3 on admission. S/P Vitamin K, now 1.3 - S/P Liver transplant in 2001 at [facility] for liver cirrhosis secondary to primary sclerosing cholangitis. He no longer follows with the [facility] or his case management coordinator. He reports all of his followup is now done at the [facility] in [place]. He does not wish to be re-established with [place] because of funding issues. 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 He is on Prograf 2mg po BID at home. He states that he has been stable on this for quite some time. LFTs stable. Tacrolimus level 5.7. - Chronic kidney disease. - Atrial fibrillation, coumadin on hold. - UTI/PNA, Abx per primary - Nonhealing diabetic foot ulcer right foot, CHF, PVD, DM, Neuropathy, HTN per primary. PLAN: - ELENA - PPI - Tacrolimus - If patient remains in hospital over weekend, will schedule EGD/Colonoscopy for Wednesday - Further recommendations to follow based on results of above - Pt seen and examined by Dr. Mallory and myself and this note is written on his behalf (Kenisha Lopez) Physician Comments Miralax for constipation, egd/colonoscopy on wednesday , unless dced home. If dced please have him fu with gi in 2 weeks. (David Mallory MD) Kenisha Lopez Oct 24, 2016 14:17 David Mallory MD Oct 24, 2016 16:13
[2016-10-25] MEDS ORDERED: PEG (High)/E-LYTE SOLN 4000 ML BTL PO ONE (16:00)
--- NOTE | 2016-11-02 12:40 | HHI.PR ---
Subjective Remarks late entry. Date of service 10/23/16. Patient says he feels fine. Denies any pain. he says he did have a cough which has resolved. Denies any shortness of breath. Denies any burning with urination. Denies any back pain. Denies any fevers or chills Objective Objective Remarks GENERAL: sitting up in bed. Appears couple. Alert and oriented 3. SKIN: Warm and dry. HEAD: Normocephalic. EYES: No scleral icterus. No injection or drainage. NECK: Supple, trachea midline. No JVD. CARDIOVASCULAR: Regular rate and rhythm without murmurs, gallops, or rubs. RESPIRATORY: Breath sounds equal bilaterally. No accessory muscle use. GASTROINTESTINAL: Abdomen soft, non-tender, nondistended. liver transplant scar. Abdomen nontender, nondistended. MUSCULOSKELETAL: No cyanosis, or edema. BACK: Nontender without obvious deformity. No CVA tenderness. A/P Assessment and Plan // GI Bleed: sent to ER from [facility] for Hgb 8, currently Hgb 9.0 however Hemoccult +, on Coumadin w/ supratherapeutic INR. Dr. Mallory consulted by ER physician. -Supratherapeutic INR 5.3 on admission.Patient had vitamin K for reversal -Patient continues hemodynamically stable. Hemoglobin stable. -Continue to monitor hemoglobin. // A-fib: Chronic. -Continue home Sotalol. -Patient has no history of stroke. -He does have CHF, hypertension, diabetes -Continue to Hold Coumadin in light of GI Bleed and elevated INR. // Supratherapeutic INR: INR 5.3, s/p Vitamin K 10mg IV x1 in ER. -Repeat INR 1.6. Continue to Hold Coumadin. //Hematuria. -Patient to see diagnosed with UTI, however this is hematuria. Likely from supratherapeutic INR. Will need repeat urinalysis as outpatient. //Renal Insufficiency: Acute on Chronic. Creatinine 1.97, previously 1.62 on 07/28/16. Caution w/ IVF in light of CHF. // Possible PNA: //Right pleural effusion -Chest x-ray did have mild patchy opacity right lower lobe. Patient did have a cough which resolved. This is likely from blood. -Respiratory status stable. -Patient will need repeat chest x-ray as outpatient. //CHF: Acute on Chronic. Diastolic. Echo 07/16/16 w/ EF 50-55%. -Continue home Lasix. //Liver Transplant: H/o Cirrhosis s/p Liver Transplant, continue Tacrolimus. // DM: Sliding scale w/ Accu-Cheks. Continue home Lantus. //DVT Prophylaxis: Pharmacologic contraindication in light of GI Bleed. Chip Melara MD Nov 02, 2016 12:40
--- NOTE | 2016-11-04 06:48 | HHI.DS ---
Discharge Summary Admission Date Oct 22, 2016 at 19:15 Discharge Date: Oct 23, 2016 Admitting Diagnosis GI bleed, anemia, elevated INR, UTI, CHF exacerbation (1) GI bleed ICD Code: K92.2 (2) A-fib ICD Code: I48.91 (3) Supratherapeutic INR ICD Code: R79.1 (4) UTI (urinary tract infection) ICD Code: N39.0 (5) PNA (pneumonia) ICD Code: J18.9 (6) CHF (congestive heart failure) ICD Code: I50.9 (7) Renal insufficiency ICD Code: N28.9 (8) DM (diabetes mellitus) ICD Code: E11.9 (9) History of liver transplant ICD Code: Z94.4 Procedures no invasive procedures performed. Brief History - From Admission This is a 66-year-old male with a PMH of A. fib on Coumadin, Anxiety, Depression , Hepatitis B/C, Cirrhosis s/p Transplant, DM, CHF (Echo 07/16/16 w/ EF 50-55%) and DM who was sent to the ER from the [place] for abnormal labs w/ Hgb 8. No records available. Pt currently without complaints except for chronic back pain and lower extremity edema. On arrival, BP 149/72, HR 57, O2 sat 95% on RA , Afebrile. Hgb 9.0, previously 8.9 on 07/30/16. Hemoccult positive. Creatinine 1.97, previously 1.62 on 07/28/16. BNP 396. INR 5.3, s/p Vitamin K 10mg IV x1 in ER. U/a w/ UTI. CXR w/ small right pleural effusion and mild patchy opacity right lung base. Dr. Mallory consulted by ER physician, will evaluate in am. Imaging Last Impressions Chest X-Ray 10/22/16 1620 Signed Impressions: Service Date/Time: October 14:41 - CONCLUSION: 1. Small right pleural effusion now noted with mild patchy opacity at the right lung base. Justin Olvera MD PE at Discharge GENERAL: sitting up in bed. appears comfortable. aaox3 SKIN: Warm and dry. HEAD: Normocephalic. EYES: No scleral icterus. No injection or drainage. NECK: Supple, trachea midline. No JVD or lymphadenopathy. CARDIOVASCULAR: Regular rate and rhythm without murmurs, gallops, or rubs. RESPIRATORY: Breath sounds equal bilaterally. No accessory muscle use. GASTROINTESTINAL: Abdomen soft, non-tender, nondistended. MUSCULOSKELETAL: No cyanosis, or edema. BACK: Nontender without obvious deformity. No CVA tenderness. Pt update on day of discharge pt says he feels well. would like to go home. Hospital Course Hemoglobin 9 on admission. He remained stable. INR elevated above 5. This was corrected with small dose of vitamin K. He will need to follow with [place] clinic to restart warfarin. Patient had reported a slight cough for couple days. No white count. Chest x-ray with mild right lower lobe opacification. This is likely from bleeding. Antibiotics given as outpatient, likely caused INR elevation. We'll hold off on antibiotics for now. For problem-based summary from most recent progress note, please see below. // GI Bleed: sent to ER from [place] for Hgb 8, currently Hgb 9.0 however Hemoccult +, on Coumadin w/ supratherapeutic INR. Dr. Mallory consulted by ER physician. -Supratherapeutic INR 5.3 on admission.Patient had vitamin K for reversal -Patient continues hemodynamically stable. Hemoglobin stable. -Continue to monitor hemoglobin. // A-fib: Chronic. -Continue home Sotalol. -Patient has no history of stroke. -He does have CHF, hypertension, diabetes -Continue to Hold Coumadin in light of GI Bleed and elevated INR. // Supratherapeutic INR: INR 5.3, s/p Vitamin K 10mg IV x1 in ER. -Repeat INR 1.6. Continue to Hold Coumadin. //Hematuria. -Patient to see diagnosed with UTI, however this is hematuria. Likely from supratherapeutic INR. Will need repeat urinalysis as outpatient. //Renal Insufficiency: Acute on Chronic. Creatinine 1.97, previously 1.62 on 07/28/16. Caution w/ IVF in light of CHF. // Possible PNA: //Right pleural effusion -Chest x-ray did have mild patchy opacity right lower lobe. Patient did have a cough which resolved. This is likely from blood. -Respiratory status stable. -Patient will need repeat chest x-ray as outpatient. //CHF: Acute on Chronic. Diastolic. Echo 07/16/16 w/ EF 50-55%. -Continue home Lasix. //Liver Transplant: H/o Cirrhosis s/p Liver Transplant, continue Tacrolimus. // DM: Sliding scale w/ Accu-Cheks. Continue home Lantus. //DVT Prophylaxis: Pharmacologic contraindication in light of GI Bleed. Pt Condition on Discharge: Good Discharge Disposition: Discharge Home Discharge Time: <= 30 minutes Discharge Instructions DIET: Follow Instructions for: Heart Healthy Diet, Diabetic Diet Activities you can perform: Regular-No Restrictions Follow up Referrals: Gastroenterology - 1 Week with David Mallory MD PCP Follow-up - 1 Week with [facility] Continued Medications: Aspirin DR (Ecotrin Low Strength) 81 Mg Tabdr 81 MG PO DAILY #30 Ref 0 TAB Ferrous Sulfate (Feosol) 200 Mg Tab 325 MG PO TID Nutritional Supplement #60 Ref 0 TAB Finasteride (Proscar) 5 Mg Tab 5 MG PO HS Do not crush. Manage Prostate Problems #30 Ref 0 TAB Folic Acid (Folate) 1 Mg Tab 1 MG PO BID Nutritional Supplement Ref 0 TAB Furosemide (Lasix) 20 Mg Tab 20 MG PO BID #60 Ref 0 TAB Gabapentin (Neurontin) 400 Mg Cap 400 MG PO Q8HR #30 Ref 0 CAP Insulin Glargine Inj (Lantus Inj) 100 Unit/Ml Inj 10 UNITS SQ HS diabetes Days 30 Ref 0 INJECTION Insulin Lispro (Human) Inj (Humalog Inj) 1,000 Unit/10 Ml Vial 3-12 UNITS SQ ACHS Max dose at bedtime:( )units; sugars < 70,(0)units; sugars 150-199,(2)units; sugars 200-249,(4)units; sugars 250-299,(7)units; sugars 300- 349,(10)units; sugars more than 349,(12)units. Blood Sugar Management #1 Ref 0 VIAL Ketorolac Opth Drops (Ketorolac Opth Drops) 0.5% Drops 1 DROP RIGHT EYE QID Pain/Inflammation #5 Ref 0 ML Magnesium (Magnesium) 250 Mg Tab 500 MG PO DAILY TAB Omeprazole (Omeprazole) 20 Mg Tab 20 MG PO DAILYAC #30 Ref 0 TAB Oxycodone (Roxicodone) 5 Mg Tab 5 MG PO Q6H PRN PAIN Ref 0 TAB Prednisolone Acetate Opth Drops (Omnipred Opth Drops) 1% Susp 1 DROP RIGHT EYE QID Inflammation #1 Ref 0 BOTTLE Sennosides (Senna) 8.6 Mg Cap 17.2 MG PO DAILY Constipation Ref 0 CAP Sotalol (Sorine) 80 Mg Tab 120 MG PO Q12HR a-fib Days 30 Ref 0 TAB Tacrolimus (Prograf) 1 Mg Cap 1 MG PO BID Prevent Transplant Reject #60 Ref 0 CAP Tamsulosin (Tamsulosin) 0.4 Mg Cap 0.4 MG PO HS Manage Prostate Problems #30 Ref 0 CAP White Petrolatum-Mineral Oil (Lubrifresh P.m.) 1 Oin Oin Discontinued Medications: Doxycycline Hyclate (Doxycycline Hyclate) 100 Mg Cap 100 MG PO BID Infection Days 10 Ref 0 CAP Warfarin (Coumadin) 6 Mg Tab 5 MG PO DAILY@16 a-fib Days 30 Ref 0 TAB Chip Melara MD Nov 04, 2016 06:48
== END 2016-10-24 14:52 | disposition home or self-care (01) | DRG 377 ==
LOC: NEPD 15:02 → NEDA 19:15 → HOCB 10-23 01:26
PROVIDERS: ADMIT Internal Medicine; ATTEND Internal Medicine
DX: K92.2 Gastrointestinal hemorrhage, unspecified (principal); J18.9 Pneumonia, unspecified organism; I50.33 Acute on chronic diastolic (congestive) heart failure; Z94.4 Liver transplant status; E11.22 Type 2 diabetes mellitus with diabetic chronic kidney disease; E11.40 Type 2 diabetes mellitus with diabetic neuropathy, unspecified; N18.3 Chronic kidney disease, stage 3 (moderate); N39.0 Urinary tract infection, site not specified; I48.2 Chronic atrial fibrillation; E11.621 Type 2 diabetes mellitus with foot ulcer; D64.9 Anemia, unspecified; Z79.01 Long term (current) use of anticoagulants; Z86.14 Personal history of Methicillin resistant Staphylococcus aureus infection; K21.9 Gastro-esophageal reflux disease without esophagitis; Z87.442 Personal history of urinary calculi; I12.9 Hypertensive chronic kidney disease with stage 1 through stage 4 chronic kidney disease, or unspecified chronic kidney disease; G89.29 Other chronic pain; Z87.891 Personal history of nicotine dependence; Z79.4 Long term (current) use of insulin; L97.519 Non-pressure chronic ulcer of other part of right foot with unspecified severity; I73.9 Peripheral vascular disease, unspecified; M54.9 Dorsalgia, unspecified; F32.9 Major depressive disorder, single episode, unspecified; F41.9 Anxiety disorder, unspecified; E78.5 Hyperlipidemia, unspecified; E55.9 Vitamin D deficiency, unspecified; K59.00 Constipation, unspecified
CPT/HCPCS: 71010; 80053; 81001; 82550; 82552; 82948; 83690; 83735; 83880; 84484; 85014; 85018; 85025; 85610; 85730; 86850; 86900; 86901; 86920; 86922; 93005; 96374; 96375; C9113; J0456; J0696; J1815; J1940; J3430; J7050; J7507

== ENCOUNTER → 2016-12-29 | Outpatient (CLI) | payer MEDICARE ==
[~2016-12-29] MED LIST changes: +ALPR.5 PO; +AMBI10TA PO; +AMLO5 PO; +AMLO5TAB2 PO; +ATOR1TAB18 PO; +ATOR40TA16 PO; -COUM6TAB PO; +D31000TA PO; -DOXY100C PO; +ESSE250T PO; +FOLI1TAB6 PO; +FURO20TA PO; +FURO40TA PO; +IPRASOL NEB; +LEVEMIR SQ; +MEGE40SU PO; +NEUR300C PO; +NOVOLOGP2 SQ; +OMNI1SUS RIGHT EYE; +SPIR25TA PO; +TRAZ100T5 PO; +VITA10003 PO; +WHIT1OIN; +ZITHTAB PO; +ZOLP10TA3 PO; +ZOLP1SPR PO
[2016-12-29 11:02] LABS: APTT (PATIENT) 30.2 SEC (24.3-30.1); INTERNATIONAL NORMALIZED RATIO 1.2 RATIO; PROTHROMBIN TIME - PATIENT 12.8 SEC (9.8-11.6)
[2016-12-29 13:22] LABS: HEMATOCRIT 27.4 % (39.0-51.0); MEAN CELL VOLUME 86.1 FL (80.0-100.0); MEAN CORPUSCULAR HEMOGLOBIN 27.6 PG (27.0-34.0); MEAN CORPUSCULAR HGB CONC 32.1 % (32.0-36.0); PLATELET COUNT 121 TH/MM3 (150-450); RED BLOOD COUNT 3.18 MIL/MM3 (4.50-5.90); RED CELL DISTRIBUTION WIDTH 15.3 % (11.6-17.2); REVIEW FLAG FINAL; WHITE BLOOD COUNT 5.5 TH/MM3 (4.0-11.0)
[2016-12-29 13:37] LABS: ALT (GPT) 22 U/L (12-78); ANION GAP 5 MEQ/L (5-15); AST (GOT) 47 U/L (15-37); BICARBONATE 27.2 MEQ/L (21.0-32.0); BLOOD UREA NITROGEN 31 MG/DL (7-18); CHLORIDE 108 MEQ/L (98-107); GLOMERULAR FILTRATION RATE 40 ML/MIN (>89); SODIUM (NA) 140 MEQ/L (136-145)
[2016-12-29 13:39] LABS: ALKALINE PHOSPHATASE 163 U/L (45-117); TOTAL BILIRUBIN ADULT 0.4 MG/DL (0.2-1.0)
[2016-12-30 12:22] LABS: ANA SCREEN NEG (NEG)
== END ==
LOC: PLAB 09:45
PROVIDERS: ATTEND Internal Medicine Gastroenterology
DX: K83.0 Cholangitis (principal); R74.8 Abnormal levels of other serum enzymes; R10.9 Unspecified abdominal pain; K72.00 Acute and subacute hepatic failure without coma; D64.9 Anemia, unspecified; Z94.4 Liver transplant status
CPT/HCPCS: 36415; 80053; 80074; 80197; 85027; 85610; 85730; 86038

== ENCOUNTER 2017-01-08 08:15 | Day surgery (SDC) | payer MEDICARE ==
[~2017-01-08] VITALS: Ht 190.5 cm; Wt 109.1 kg
[2017-01-08] VITALS (8 sets, daily range): BP systolic 108–164; BP diastolic 53–90; PULSE 51–60; RESP 16–20; TEMP 98–98.4; O2SAT 92–97
[~2017-01-08 08:15] MED LIST changes: -ALPR.5 PO; -AMBI10TA PO; -AMLO5 PO; -AMLO5TAB2 PO; -ATOR1TAB18 PO; -ATOR40TA16 PO; -D31000TA PO; -ESSE250T PO; -FOLI1TAB6 PO; -FURO20TA PO; -FURO40TA PO; -IPRASOL NEB; -LEVEMIR SQ; -MEGE40SU PO; -NEUR300C PO; -NOVOLOGP2 SQ; -SPIR25TA PO; -TRAZ100T5 PO; -VITA10003 PO; -ZITHTAB PO; -ZOLP10TA3 PO; -ZOLP1SPR PO
[2017-01-08] MEDS ORDERED: ZOLP1SPR PO (08:43)
[2017-01-08] MEDS ORDERED: ATOR1TAB18 PO (08:43)
[2017-01-08] MEDS ORDERED: TRAZ100T5 PO (08:43)
[2017-01-08] MEDS ORDERED: SODIUM CHLOR 0.9% 1000 ML IV SCH (09:00)
[2017-01-08] MEDS ORDERED: LIDOCAINE 1%/EPINEPHrine 1:100,000 SOLN 20 ML VIAL ONE (09:05)
[2017-01-08] MEDS ORDERED: MIDAZOLAM HCL 5 MG/5 ML VIAL ONE (09:21)
[2017-01-08] MEDS ORDERED: fentaNYL CITRATE 250 MCG/5 ML AMP ONE (09:22)
--- NOTE | 2017-01-08 10:11 | RADRPT ---
EXAM DATE/TIME: 01/08/2017 09:28 [facility] COMPARISON: No previous studies available for comparison. INDICATIONS : Elevated liver enzymes. SEDATION TIME: 30 minutes BIOPSY SITE: Right MEDICATION(S): 1.) 2 mg midazolam (Versed) IV 2.) 100 mcg fentanyl (Sublimaze) IV DEVICE(S): 1.) 18 gauge BioPince needle MEDICAL HISTORY : Liver failure. SURGICAL HISTORY : Liver transplant. ENCOUNTER: Initial ACUITY: 1 day PAIN SCORE: 0/10 LOCATION: Right A total of one core specimen(s) were obtained and sent to the laboratory for pathologic evaluation. PROCEDURE: 1. CT guided liver biopsy. 2. Conscious sedation with continuous EKG and oximetry monitoring. 3. EKG and oximetry remained stable throughout the procedure. Prior to the procedure informed consent was obtained. Any appropriate prior imaging studies were rev iewed. Using automated exposure control and adjustment of the mA and/or kV according to patient size, radiat ion dose was kept as low as reasonably achievable to obtain optimal diagnostic quality images. The site was prepped in a sterile fashion. Full sterile technique was used, including cap, mask, harpal rile gloves and gown and a large sterile sheet. Hand hygiene and 2% chlorhexidine and/or betadine/al cohol prep was utilized per protocol for cutaneous antisepsis. The skin and subcutaneous tissues wer e infiltrated with local anesthetic solution. With CT guidance the previously identified target was localized. Biopsy was performed using the presc ribed needle as above. Adequate hemostasis was obtained with compression at the puncture site. Follow-up CT scan reveals no hemorrhage. The patient tolerated the procedure well and there were no complications. The patient was returned to the Radiology Outpatient Unit in stable condition. CONCLUSION: Uncomplicated CT guided biopsy of transplanted liver.. Joni Goss MD FACR on January 08, 2017 at 10:08 Board Certified Radiologist. This report was verified electronically.
== END 2017-01-08 13:40 | disposition home or self-care (01) ==
LOC: HRIP 08:15 → HRAD 08:15
PROVIDERS: ATTEND Internal Medicine Gastroenterology
DX: K83.0 Cholangitis (principal); R74.8 Abnormal levels of other serum enzymes; Z94.4 Liver transplant status
CPT/HCPCS: 47000; 77012; 88307; 88313; J2250; J3010; J7030

== ENCOUNTER → 2017-01-19 | Outpatient (CLI) | payer MEDICARE ==
[~2017-01-19] MED LIST changes: +ALPR.5 PO; +AMBI10TA PO; +AMLO5 PO; +AMLO5TAB2 PO; +ATOR1TAB18 PO; +ATOR40TA16 PO; +D31000TA PO; +ESSE250T PO; -FERR200T PO; +FOLI1TAB6 PO; +FURO20TA PO; +FURO40TA PO; +IPRASOL NEB; +LEVEMIR SQ; +MEGE40SU PO; +NEUR300C PO; +NOVOLOGP2 SQ; -SENN8.6C PO; +SPIR25TA PO; +TRAZ100T5 PO; +VITA10003 PO; -WHIT1OIN; +ZITHTAB PO; +ZOLP10TA3 PO; +ZOLP1SPR PO
== END ==
LOC: PLAB 01-18 13:37
PROVIDERS: ATTEND Internal Medicine Gastroenterology
DX: K74.60 Unspecified cirrhosis of liver (principal); R68.89 Other general symptoms and signs
CPT/HCPCS: 36415; 84443

== ENCOUNTER 2017-01-22 18:05 | Inpatient (IN) | payer MEDICARE, OTHER ==
[~2017-01-22] VITALS: Ht 193 cm; Wt 97.2 kg
[~2017-01-22 18:05] MED LIST changes: -ALPR.5 PO; -AMBI10TA PO; -AMLO5 PO; -AMLO5TAB2 PO; -ATOR40TA16 PO; -D31000TA PO; -ESSE250T PO; -FOLI1TAB6 PO; -FURO20TA PO; -FURO40TA PO; -IPRASOL NEB; -LEVEMIR SQ; -MEGE40SU PO; -NEUR300C PO; -NOVOLOGP2 SQ; -SPIR25TA PO; -VITA10003 PO; -ZITHTAB PO; -ZOLP10TA3 PO
[2017-01-22 18:07] VITALS: BP 150/73; PULSE 58; RESP 36; TEMP 98.7; O2SAT 96
--- NOTE | 2017-01-22 18:18 | PD ---
Physical Exam Date Seen by Provider: January 22, 2017 Time Seen by Provider: 18:15 Narrative 66 YOWM C/O SOB WORSE TODAY.JUST NOT FEELING WELL. ALSO LUQ PAIN. -02/20. H/O LIVER TRANSPLANT 2001. NO F/C/N/V. NO TRAUMA. VSS wating for bed asignment Data Data Last Documented VS Vital Signs Date Time Temp Pulse Resp B/P Pulse Ox O2 Delivery O2 Flow Rate FiO2 01/22/17 18:07 98.7 58 36 150/73 96 Room Air [facility] Medical Record Reviewed: No Supervised Visit with MANDA: Pilo Granados January 22, 2017 18:18
[2017-01-22 18:25] VITALS: BP 177/77; PULSE 56; RESP 16; O2SAT 98
[2017-01-22] MEDS ORDERED: SODIUM CHLORIDE 0.9% FLUSH 10 ML FLUSH IVF PRN (19:00)
[2017-01-22] MEDS ORDERED: AZITHROMYCIN INJ 500 MG in SODIUM CHLOR 0.9% 250 ML INJ 250 ML IV STA (19:16)
[2017-01-22] MEDS ORDERED: CEFEPIME INJ 2,000 MG in SODIUM CHLORIDE 0.9% INJ 100 ML IV STA (19:16)
--- NOTE | 2017-01-22 19:21 | PD ---
HPI Chief Complaint: Respiratory Symptoms Time Seen by Provider: 19:17 Travel History International Travel<30 days: No Contact w/Intl Traveler<30days: No Traveled to known affect area: No History of Present Illness HPI 66-year-old male with history of gastritis, anemia, thrombocytopenia, splenomegaly, portal hypertension, liver transplant, cirrhosis of liver presents to the ED for evaluation of worsening shortness of breath over the last 1-2 days. Patient endorses intermittent cough occasionally productive of scant yellowish sputum. He denies fever, chills, chest pain, palpitations. Also complains of 6/10 left upper quadrant pain, early satiety. He denies nausea, vomiting, changes in bowel habits, dysuria. Versus chronic edema of the bilateral lower legs, no worse today. [facility] Dr. Mallory, with whom he had a liver biopsy last week. Results pending. PFSH Past Medical History Arthritis: No Asthma: No Atrial Fibrillation: Yes (ablation) Autoimmune Disease: No Blood Disorders: No Anxiety: Yes Depression: Yes Heart Rhythm Problems: Yes (atrial fibrillation) Cancer: No Cardiac Catheterization: Yes (2007, LOOP RECORDER 2015) Cardiovascular Problems: Yes High Cholesterol: No Chemotherapy: No Chest Pain: No Congestive Heart Failure: Yes Cirrhosis: Yes (BEFORE TRANSPLANT) COPD: No Cerebrovascular Accident: No Diabetes: Yes Patient Takes Glucophage: No Diminished Hearing: No Endocrine: Yes Gastrointestinal Disorders: Yes (ULCERATIVE COLITIS HX) GERD: Yes Glaucoma: No Genitourinary: Yes Headaches: Yes (occasional) Hepatitis: Yes (B AND C) Hiatal Hernia: No Hypertension: Yes (& Hypotension) Immune Disorder: No Implanted Vascular Access Dvce: No Kidney Stones: Yes Musculoskeletal: Yes (WEAKNESS) Neurologic: Yes (NEUROPATHY) Psychiatric: Yes Reproductive: No Respiratory: Yes Integumentary: Yes Immunizations Current: Yes Migraines: No Myocardial Infarction: No Radiation Therapy: No Renal Failure: No Seizures: No Sickle Cell Disease: No Sleep Apnea: No Thyroid Disease: No Ulcer: No Tetanus Vaccination: < 5 Years Influenza Vaccination: Yes Past Surgical History Abdominal Surgery: Yes (liver transplant 2001) AICD: No Appendectomy: No Arteriovenous Shunt: No Cardiac Surgery: No Cholecystectomy: No Ear Surgery: No Endocrine Surgery: No Eye Surgery: No Genitourinary Surgery: No Gynecologic Surgery: No Insulin Pump: No Joint Replacement: No Neurologic Surgery: No Oral Surgery: No Pacemaker: No Thoracic Surgery: No Other Surgery: Yes (liver transplant) Social History Alcohol Use: No Tobacco Use: Yes (quit 1997) Substance Use: No Allergies-Medications (Allergen,Severity, Reaction): Coded Allergies: *MDRO Multi-Drug Resistant Organism (Verified Adverse Reaction, Unknown, ) MRSA (heel wound) - 07/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 Lasix (Furosemide) 20 Mg Tab 20 Mg PO BID Magnesium 250 Mg Tab 500 Mg PO DAILY Humalog Inj (Insulin Human Lispro) 1,000 Unit/10 Ml Vial 3-12 Units SQ ACHS Max dose at bedtime:( )units; sugars < 70,(0)units; sugars 150-199,(2)units; sugars 200-249,(4)units; sugars 250-299,(7)units; sugars 300-349,(10)units; sugars more than 349,(12)units. Omeprazole 20 Mg Tab 20 Mg PO DAILYAC Prograf (Tacrolimus) 1 Mg Cap 1 Mg PO BID Ecotrin Low Strength (Aspirin) 81 Mg Tabdr 81 Mg PO DAILY Folate (Folic Acid) 1 Mg Tab 1 Mg PO BID Tamsulosin (Tamsulosin HCl) 0.4 Mg Cap 0.4 Mg PO HS Roxicodone (Oxycodone HCl) 5 Mg Tab 5 Mg PO Q6H PRN Review of Systems Except as stated in HPI: all other systems reviewed are Neg Physical Exam Narrative GENERAL: Well-nourished, well-developed chronically ill-appearing white male in no acute distress. SKIN: Focused skin assessment warm/dry. Several small crusted abrasions with no signs of infection. HEAD: Normocephalic. EYES: No scleral icterus. No injection or drainage. NECK: Supple, trachea midline. No JVD or lymphadenopathy. CARDIOVASCULAR: Regular rate and rhythm without murmurs, gallops, or rubs. RESPIRATORY: Breath sounds clear and equal bilaterally. No accessory muscle use. GASTROINTESTINAL: Abdomen soft, nondistended. Tender to palpation of the left upper quadrant. MUSCULOSKELETAL: No cyanosis. 2+ pitting edema to the knees bilaterally. BACK: No obvious deformity. No CVA tenderness. Point tenderness in the left lateral/axillary region. Data Data Last Documented VS Vital Signs Date Time Temp Pulse Resp B/P Pulse Ox O2 Delivery O2 Flow Rate FiO2 01/22/17 18:25 98 2 01/22/17 18:25 56 16 177/77 Nasal Cannula 01/22/17 18:07 98.7 Orders Complete Blood Count With Diff (01/22/17 18:50) Comprehensive Metabolic Panel (01/22/17 18:50) B-Type Natriuretic Peptide (01/22/17 18:50) Act Partial Throm Time (Ptt) (01/22/17 18:50) Prothrombin Time / Inr (Pt) (01/22/17 18:50) Magnesium (Mg) (01/22/17 18:50) Ckmb (Isoenzyme) Profile (01/22/17 18:50) Troponin I (01/22/17 18:50) Urinalysis - C+S If Indicated (01/22/17 18:50) Iv Access Insert/Monitor (01/22/17 18:50) Electrocardiogram (01/22/17 18:50) Ecg Monitoring (01/22/17 18:50) Oximetry (01/22/17 18:50) Chest, Single Ap (01/22/17 18:50) Sodium Chloride 0.9% Flush (Ns Flush) (01/22/17 19:00) Lipase (01/22/17 18:50) Ct Abd/Pel W Iv Contrast(Rout) (01/22/17 18:50) Blood Culture (01/22/17 19:04) Lactic Acid Sepsis Protocol (01/22/17 19:04) Cefepime Inj (Maxipime Inj) (01/22/17 19:16) Azithromycin Inj (Zithromax Inj) (01/22/17 19:16) Morphine Inj (Morphine Inj) (01/22/17 20:00) CKMB (01/22/17 19:10) CKMB% (01/22/17 19:10) Iodixanol 320 Inj (Rad Ct) (Visipaque 32 (01/22/17 20:35) Furosemide Inj (Lasix Inj) (01/22/17 20:45) Calcium Carbonate (Oscal) (01/22/17 20:45) Magnesium Oxide (Mag-Ox) (01/22/17 20:45) Labs Laboratory Tests Test 01/22/17 01/22/17 19:10 20:45 White Blood Count 5.8 TH/MM3 Red Blood Count 3.29 MIL/MM3 Hemoglobin 9.2 GM/DL Hematocrit 27.4 % Mean Corpuscular Volume 83.4 FL Mean Corpuscular Hemoglobin 27.9 PG Mean Corpuscular Hemoglobin 33.5 % Concent Red Cell Distribution Width 15.0 % Platelet Count 136 TH/MM3 Mean Platelet Volume 8.2 FL Neutrophils (%) (Auto) 68.2 % Lymphocytes (%) (Auto) 22.1 % Monocytes (%) (Auto) 7.3 % Eosinophils (%) (Auto) 2.2 % Basophils (%) (Auto) 0.2 % Neutrophils # (Auto) 4.0 TH/MM3 Lymphocytes # (Auto) 1.3 TH/MM3 Monocytes # (Auto) 0.4 TH/MM3 Eosinophils # (Auto) 0.1 TH/MM3 Basophils # (Auto) 0.0 TH/MM3 CBC Comment DIFF FINAL Differential Comment Prothrombin Time 13.2 SEC Prothromb Time International 1.2 RATIO Ratio Activated Partial 30.3 SEC Thromboplast Time Sodium Level 136 MEQ/L Potassium Level 4.6 MEQ/L Chloride Level 103 MEQ/L Carbon Dioxide Level 28.5 MEQ/L Anion Gap 5 MEQ/L Blood Urea Nitrogen 24 MG/DL Creatinine 1.68 MG/DL Estimat Glomerular Filtration 41 ML/MIN Rate Random Glucose 177 MG/DL Lactic Acid Level 0.9 mmol/L Calcium Level 8.0 MG/DL Magnesium Level 1.3 MG/DL Total Bilirubin 0.7 MG/DL Aspartate Amino Transf 34 U/L (AST/SGOT) Alanine Aminotransferase 15 U/L (ALT/SGPT) Alkaline Phosphatase 153 U/L Total Creatine Kinase 143 U/L Creatine Kinase MB 5.3 NG/ML Troponin I LESS THAN 0.02 NG/ML B-Type Natriuretic Peptide 492 PG/ML Total Protein 9.0 GM/DL Albumin 2.0 GM/DL Lipase 71 U/L Urine Color YELLOW Urine Turbidity CLEAR Urine pH 7.0 Urine Specific [place] 1.012 Urine Protein 100 mg/dL Urine Glucose (UA) NEG mg/dL Urine Ketones NEG mg/dL Urine Occult Blood SMALL Urine Nitrite NEG Urine Bilirubin NEG Urine Urobilinogen LESS THAN 2.0 MG/DL Urine Leukocyte Esterase NEG Urine RBC 11 /hpf Urine WBC LESS THAN 1 /hpf Urine Hyaline Casts 1 /lpf Microscopic Urinalysis Comment CULT NOT INDICATED MDM Medical Decision Making Medical Screen Exam Complete: Yes Emergency Medical Condition: Yes Differential Diagnosis Pneumonia versus bronchitis versus CHF versus pancreatitis versus anemia versus electrolyte abnormality versus liver failure versus RAN versus other Narrative Course 66-year-old male with history of gastritis, anemia, thrombocytopenia, splenomegaly, portal hypertension, liver transplant, cirrhosis of liver presents to the ED for evaluation of worsening shortness of breath over the last 1-2 days. Patient endorses intermittent cough occasionally productive of scant yellowish sputum. He denies fever, chills, chest pain, palpitations. Also complains of 6/10 left upper quadrant pain, early satiety. He denies nausea, vomiting, changes in bowel habits, dysuria. Versus chronic edema of the bilateral lower legs, no worse today. [facility] Follow[facility] by Dr. Mallory, with whom he had a liver biopsy last week. Results pending. Vitals reviewed. Respiratory rate 36 in triage, improved to 16 in the exam room. Physical exam reveals a chronically ill-appearing white male in no acute distress. Has a regular rate and rhythm without appreciable M/R/G. CTAP. Abdomen soft, nondistended, tender to palpation in the left upper quadrant. 2+ pitting edema to the knees bilaterally. No CVA tenderness. IV is established. Patient was placed on continuous monitoring. Blood cultures were obtained. Patient was administered 4 mg morphine, cefepime and Zithromax IV. CBC: WBC 5.8. Hemoglobin 9.2, consistent with baseline. CMP: BUN 24, creatinine 1.68, consistent with baseline Ca: 8.0 M.3 Lipase: 71 Lactate: 0.9 BNP: 492 INR: 1.2. CXR: Edema with bilateral pleural effusions per radiology read. Abdominal CT: Effusions and consolidative changes in bilateral lung bases. Splenomegaly, abnormal liver appearance, ascites. Patient was administered 400mg magnesium oxide, 500 mg Os-Christiano by mouth and 40mg Lasix IV. Plan to admit for CHF exacerbation and questionable pneumonia. I spoke with Dr. Lechuga who agrees to accept the patient to the medicine service. Please see medicine notes for disposition. Raven Dukes January 22, 2017 19:21
--- NOTE | 2017-01-22 19:30 | RADRPT ---
EXAM DATE/TIME: 01/22/2017 19:17 [facility] COMPARISON: CHEST SINGLE AP, October 22, 2016, 14:41. INDICATIONS : Shortness of breath. MEDICAL HISTORY : Diabetes mellitus type II. SURGICAL HISTORY : None. ENCOUNTER: Initial ACUITY: 3 days PAIN SCORE: 0/10 LOCATION: chest FINDINGS: Hazy bilateral basilar parenchymal opacities are present in addition to bilateral effusions. The hear t is enlarged. CONCLUSION: Edema and bilateral effusions. Vin Perez MD on January 22, 2017 at 19:27 Board Certified Radiologist. This report was verified electronically.
[2017-01-22 19:31] LABS: BASOPHIL % 0.2 % (0.0-2.0); EOSINOPHIL # 0.1 TH/MM3 (0-0.4); EOSINOPHIL % 2.2 % (0.0-4.0); HEMATOCRIT 27.4 % (39.0-51.0); HEMO FLAGS DIFF FINAL; LYMPH % 22.1 % (9.0-44.0); LYMPHOCYTE # 1.3 TH/MM3 (1.0-4.8); MEAN CELL VOLUME 83.4 FL (80.0-100.0); MEAN CORPUSCULAR HEMOGLOBIN 27.9 PG (27.0-34.0); MEAN CORPUSCULAR HGB CONC 33.5 % (32.0-36.0); MONO % 7.3 % (0.0-8.0); NEUT % 68.2 % (16.0-70.0); PLATELET COUNT 136 TH/MM3 (150-450); RED BLOOD COUNT 3.29 MIL/MM3 (4.50-5.90); WHITE BLOOD COUNT 5.8 TH/MM3 (4.0-11.0)
[2017-01-22 19:39] LABS: APTT (PATIENT) 30.3 SEC (24.3-30.1); INTERNATIONAL NORMALIZED RATIO 1.2 RATIO; PROTHROMBIN TIME - PATIENT 13.2 SEC (9.8-11.6)
[2017-01-22] MEDS ORDERED: MORPHINE SULFATE 4 MG/ML INJ IV PUSH ONE (20:00)
[2017-01-22 20:07] LABS: ANION GAP 5 MEQ/L (5-15); AST (GOT) 34 U/L (15-37); BICARBONATE 28.5 MEQ/L (21.0-32.0); BLOOD UREA NITROGEN 24 MG/DL (7-18); CHLORIDE 103 MEQ/L (98-107); GLOMERULAR FILTRATION RATE 41 ML/MIN (>89); MAGNESIUM 1.3 MG/DL (1.5-2.5); POTASSIUM 4.6 MEQ/L (3.5-5.1); SODIUM (NA) 136 MEQ/L (136-145)
[2017-01-22 20:11] LABS: ALKALINE PHOSPHATASE 153 U/L (45-117); ALT (GPT) 15 U/L (12-78); CREATINE KINASE 143 U/L (39-308); TOTAL BILIRUBIN ADULT 0.7 MG/DL (0.2-1.0)
[2017-01-22 20:23] LABS: CKMB 5.3 NG/ML (0.5-3.6)
[2017-01-22] MEDS ORDERED: IODIXANOL 320 MG/ML 10 ML VIAL (for Rad CT) IV ONE (20:35)
[2017-01-22] MEDS ORDERED: FUROSEMIDE 40 MG/4 ML VIAL IV PUSH ONE (20:45)
[2017-01-22] MEDS ORDERED: CALCIUM CARBONATE 1.25 GM (CA 500 MG) TAB PO ONE (20:45)
[2017-01-22] MEDS ORDERED: MAGNESIUM OXIDE 400 MG TAB PO ONE (20:45)
--- NOTE | 2017-01-22 20:51 | RADRPT ---
EXAM DATE/TIME: 01/22/2017 20:27 [facility] COMPARISON: CT NEEDLE BIOPSY LIVER, January 08, 2017, 9:28. INDICATIONS : Increase shortness of breath for two days,abdomen pain left side. IV CONTRAST: 50 cc Visipaque (iodixanol) IV ORAL CONTRAST: No oral contrast ingested. RADIATION DOSE: 10.88 CTDIvol (mGy) MEDICAL HISTORY : Cardiovascular disease. Hypertension. Cirrhosis.Diabetes,hep b and c SURGICAL HISTORY : Liver transpant ENCOUNTER: Initial ACUITY: 2 days PAIN SCALE: 6/10 LOCATION: Left Abdomen TECHNIQUE: Volumetric scanning of the abdomen and pelvis was performed. Using automated exposure control and ad justment of the mA and/or kV according to patient size, radiation dose was kept as low as reasonably achievable to obtain optimal diagnostic quality images. FINDINGS: LOWER LUNGS: Moderate bilateral pleural effusions and airspace disease in the lung bases, right worse than left. LIVER: Cirrhotic appearance. Subcapsular fluid involving the lateral and anterolateral dome which appears to been present previously. No evidence of mass or biliary ductal dilatation. SPLEEN: Enlarged without focal lesion. PANCREAS: Within normal limits. KIDNEYS: Small cyst and nonobstructing tiny stone on the left. No evidence of hydronephrosis. ADRENAL GLANDS: Within normal limits. VASCULAR: There is no aortic aneurysm. BOWEL/MESENTERY: Small volume of ascites in the dependent pelvis and adjacent to the liver and spleen. Bowel structure s are nondilated throughout without evidence of focal wall thickening or inflammatory change. ABDOMINAL WALL: Within normal limits. RETROPERITONEUM: There is no lymphadenopathy. BLADDER: No wall thickening or mass. REPRODUCTIVE: Within normal limits. INGUINAL: There is no lymphadenopathy or hernia. MUSCULOSKELETAL: Within normal limits for patient age. CONCLUSION: Effusions and consolidative changes in the lung bases. Abnormal liver appearance splenomegaly and ascites. Vin Perez MD on January 22, 2017 at 20:42 Board Certified Radiologist. This report was verified electronically.
[2017-01-22] MEDS ORDERED: LANTUS2P SQ (20:57)
[2017-01-22 21:13] LABS: BLOOD, URINE SMALL (NEG); COMMENT (UR) CULT NOT INDICATED; CULTURE IF INDICATED CULT NOT INDICATED; GLUCOSE,URINE NEG (NEG); HYALINE CAST, URINE 1 /lpf (RARE); KETONE, URINE NEG (NEG); NITRITE,URINE NEG (NEG); URINE COLOR YELLOW (YELLW/STRAW)
[2017-01-22] MEDS ORDERED: DEXTROSE 50% IN WATER 50 ML VIAL(D50) IV PUSH PRN (21:30)
[2017-01-22] MEDS ORDERED: ZOLPIDEM TARTRATE 10 MG PO SCH (21:30)
[2017-01-22] MEDS ORDERED: GLUCAGON 1 MG/ML VIAL OTHER PRN (21:30)
[2017-01-22 21:32] VITALS: BP 160/79; PULSE 59; RESP 16; TEMP 98.3; O2SAT 96
--- NOTE | 2017-01-22 21:37 | HHI.HP ---
[facility] Admission Diagnosis CHF exacerbation, pneumonia Diagnoses: (1) CHF (congestive heart failure) Diagnosis: Principal (2) PNA (pneumonia) Diagnosis: Principal (3) Liver transplant recipient Diagnosis: Principal (4) Renal insufficiency Diagnosis: Principal (5) Hypomagnesemia Diagnosis: Principal (6) HTN (hypertension) Diagnosis: Principal (7) DM (diabetes mellitus) Diagnosis: Principal Travel History International Travel<30 Days: No Contact w/Intl Traveler <30 Da: No Traveled to Known Affected Are: No History of Present Illness This is a 66-year-old male with a PMH of Anxiety, Depression, HTN, CAD, CHF ( Echo 07/16/16 w/ EF 50-55%), Tachyarrhythmia s/p Ablation 07/23/16, Hepatitis B/C , h/o Liver Transplant on Chronic Immunosuppressive Therapy, Ulcerative Colitis and DM who presented to the ER with complaints of cough, SOB and bilateral lower extremity edema x2 days. Denies fever, chills or chest pain. On arrival , BP 150/73, HR 58, O2 sat 96% on RA, Afebrile. CBC at baseline. Creatinine 1.68, previously 1.71 on 12/29/16. BNP 492. Trop 0.02, EKG w/ no acute ischemia. Mg 1.3 s/p replacement in ER. CXR with edema and bilateral effusions. CT Abd/Pelvis w/ effusions and consolidative changes in the lung bases, abnormal liver, splenomegaly and ascites. S/p Lasix IV in ER. Review of Systems Except as stated in HPI: all other systems reviewed are Neg ROS: 14 point review of systems otherwise negative. Past Family Social History Past Medical History PMH: Anxiety, Depression, HTN, CAD, CHF (Echo 07/16/16 w/ EF 50-55%), Tachyarrhythmia s/p Ablation 07/23/16, Hepatitis B/C, h/o Liver Transplant on Chronic Immunosuppressive Therapy, Ulcerative Colitis and DM Past Surgical History PAST SURGICAL HISTORY: Liver Transplant 2001 Allergies: Coded Allergies: *MDRO Multi-Drug Resistant Organism (Verified Adverse Reaction, Unknown, ) MRSA (heel wound) - 07/23/16 Family History PAST FAMILY HISTORY: Reviewed. No h/o DM or CAD Social History PAST SOCIAL HISTORY: Negative for alcohol, tobacco or drugs. Physical Exam Vital Signs Vital Signs Date Time Temp Pulse Resp B/P Pulse Ox O2 Delivery O2 Flow Rate FiO2 01/22/17 18:25 98 2 01/22/17 18:25 56 16 177/77 98 Nasal Cannula 01/22/17 18:07 98.7 58 36 150/73 96 Room Air Physical Exam PE: GENERAL: Pleasant middle-aged white male in no acute distress, appears slightly older than stated age. HEENT: PERRLA, EOMI. No scleral icterus or conjunctival pallor. No lid lag or facial droop. CARDIOVASCULAR: Regular rate and rhythm. No obvious murmurs to auscultation. No chest tenderness to palpation. RESPIRATORY: No obvious rhonchi or wheezing. Clear to auscultation. Breath sounds equal bilaterally. GASTROINTESTINAL: Abdomen soft, non-tender, nondistended. BS normal. MUSCULOSKELETAL: Extremities without clubbing, cyanosis. 2+ pitting edema bilaterally. No obvious deformities. NEUROLOGICAL: Awake, alert and oriented x4. No focal neurologic deficits. Moving both upper and lower extremities spontaneously. Laboratory Laboratory Tests Test 01/22/17 01/22/17 19:10 20:45 White Blood Count 5.8 Red Blood Count 3.29 Hemoglobin 9.2 Hematocrit 27.4 Mean Corpuscular Volume 83.4 Mean Corpuscular Hemoglobin 27.9 Mean Corpuscular Hemoglobin 33.5 Concent Red Cell Distribution Width 15.0 Platelet Count 136 Mean Platelet Volume 8.2 Neutrophils (%) (Auto) 68.2 Lymphocytes (%) (Auto) 22.1 Monocytes (%) (Auto) 7.3 Eosinophils (%) (Auto) 2.2 Basophils (%) (Auto) 0.2 Neutrophils # (Auto) 4.0 Lymphocytes # (Auto) 1.3 Monocytes # (Auto) 0.4 Eosinophils # (Auto) 0.1 Basophils # (Auto) 0.0 CBC Comment DIFF FINAL Differential Comment Prothrombin Time 13.2 Prothromb Time International 1.2 Ratio Activated Partial 30.3 Thromboplast Time Sodium Level 136 Potassium Level 4.6 Chloride Level 103 Carbon Dioxide Level 28.5 Anion Gap 5 Blood Urea Nitrogen 24 Creatinine 1.68 Estimat Glomerular Filtration 41 Rate Random Glucose 177 Lactic Acid Level 0.9 Calcium Level 8.0 Magnesium Level 1.3 Total Bilirubin 0.7 Aspartate Amino Transf 34 (AST/SGOT) Alanine Aminotransferase 15 (ALT/SGPT) Alkaline Phosphatase 153 Total Creatine Kinase 143 Creatine Kinase MB 5.3 Troponin I LESS THAN 0.02 B-Type Natriuretic Peptide 492 Total Protein 9.0 Albumin 2.0 Lipase 71 Urine Color YELLOW Urine Turbidity CLEAR Urine pH 7.0 Urine Specific [place] 1.012 Urine Protein 100 Urine Glucose (UA) NEG Urine Ketones NEG Urine Occult Blood SMALL Urine Nitrite NEG Urine Bilirubin NEG Urine Urobilinogen LESS THAN 2.0 Urine Leukocyte Esterase NEG Urine RBC 11 Urine WBC LESS THAN 1 Urine Hyaline Casts 1 Microscopic Urinalysis Comment CULT NOT INDICATED Date/Time Procedure Status Source Growth 01/22/17 19:55 Aerobic Blood Culture Received Blood Line Pending 01/22/17 19:55 Anaerobic Blood Culture Received Blood Line Pending Result Diagram: 01/22/17190901/22/171909 Assessment and Plan Problem List: (1) CHF (congestive heart failure) ICD Code: I50.9 Status: Acute (2) PNA (pneumonia) ICD Code: J18.9 Status: Acute (3) Liver transplant recipient ICD Code: Z94.4 Status: Acute (4) Renal insufficiency ICD Code: N28.9 Status: Acute (5) Hypomagnesemia ICD Code: E83.42 Status: Acute (6) HTN (hypertension) ICD Code: I10 Status: Acute (7) DM (diabetes mellitus) ICD Code: E11.9 Status: Chronic Assessment and Plan A/P: 1. CHF: Acute on Chronic. Diastolic. Echo 07/16/16 w/ EF 50-55%, BNP 492, +2 pitting edema bilaterally, CXR w/ bilateral effusions, images reviewed by me. S /p Lasix IV in ER, will continue w/ diuresis, caution w/ renal insufficiency. Monitor I/O. 2. PNA: CT Abd/Pelvis w/ consolidative changes bilateral bases, images reviewed by me, +SOB/cough x2 days, afebrile, no leukocytosis. S/p Cefepime/ Zithro in ER, will continue w/ IV Abx. 3. Liver Transplant: h/o Liver Transplant 2001, on chronic immunosuppressant therapy w/ Prograf, check Prograf level, resume home medications. Follows w/ Dr. Mallory as outpatient. 4. Renal Insufficiency: Creatinine 1.68, previously 1.71 on 12/29/16. Will monitor, caution w/ diuresis. Repeat labs in am. 5. Hypomagnesemia: Mg 1.3, s/p replacement in ER, will resume home medications , recheck in am. 6. HTN: BP 170's systolic, resume home medications, monitor BP. 7. DM: Sliding scale w/ Accu-Cheks, check Hgb A1c 8. DVT Prophylaxis: SCD/Teds. 9. Social work for d/c planning as needed. 10. Case discussed w/ ER physician at length. Physician Certification 2 Midnight Certification Type: Admission for Inpatient Services Order for Inpatient Services The services are ordered in accordance with Medicare regulations or non- Medicare payer requirements, as applicable. In the case of services not specified as inpatient-only, they are appropriately provided as inpatient services in accordance with the 2-midnight benchmark. Estimated LOS (days): 2 days is the estimated time the patient will need to remain in the hospital, assuming treatment plan goals are met and no additional complications. Post-Hospital Plan: Not yet determined Anna Lechuga MD January 22, 2017 21:37
[2017-01-22] MEDS ORDERED: ZOLPIDEM TARTRATE 10 MG TAB PO PRN (21:45)
[2017-01-22 21:58] VITALS: BP 171/81; PULSE 60; RESP 18; O2SAT 98
[2017-01-22 23:00] VITALS: PULSE 59
[2017-01-22] MEDS: TAMSULOSIN HCL 0.4 MG CAP PO SCH (23:07)
[2017-01-22] MEDS: TACROLIMUS 1 MG CAP PO SCH (23:09)
[2017-01-22] MEDS: ACETAMINOPHEN 325 MG TAB PO PRN (23:21)
[2017-01-22 23:52] VITALS: BP 158/76; PULSE 62; RESP 16; TEMP 98.6; O2SAT 98
[2017-01-23] VITALS (7 sets, daily range): BP systolic 135–162; BP diastolic 68–83; PULSE 56–64; RESP 16–20; TEMP 97.7–98.3; O2SAT 91–99
[2017-01-23] MEDS: INSULIN ASPART SUPPLEMENTAL SCALE SQ SCH ×4 (06:24→22:14)
[2017-01-23] MEDS: PANTOPRAZOLE SOD 20 MG DELAYED RELEASE TAB PO SCH (08:24)
[2017-01-23] MEDS: FOLIC ACID 1 MG TAB PO SCH ×2 (08:24→20:43)
[2017-01-23] MEDS: CEFEPIME INJ 1,000 MG in SODIUM CHLORIDE 0.9% INJ 100 ML IV SCH ×2 (08:24→20:45)
[2017-01-23] MEDS: TACROLIMUS 1 MG CAP PO SCH ×2 (08:24→20:45)
[2017-01-23] MEDS: SOTALOL HCL 80 MG TAB PO SCH ×2 (08:25→20:43)
[2017-01-23] MEDS: MAGNESIUM OXIDE 400 MG TAB PO SCH (08:25)
[2017-01-23] MEDS: FUROSEMIDE 20 MG/2 ML VIAL IV PUSH SCH ×2 (08:25→17:23)
[2017-01-23] MEDS: ASPIRIN EC 81 MG TABEC PO SCH (08:25)
[2017-01-23] MEDS: ONDANSETRON HCL 4 MG/2 ML VIAL IVP PRN ×2 (08:28→13:49)
[2017-01-23] MEDS: SODIUM CHLORIDE 0.9% FLUSH 10 ML FLUSH IV FLUSH SCH ×2 (08:29→20:45)
[2017-01-23] MEDS ORDERED: TACROLIMUS 1 MG CAP PO SCH (09:00)
[2017-01-23 09:32] LABS: AUTOMATED NEUTROPHIL # 3.9 TH/MM3 (1.8-7.7); BASOPHIL % 0.3 % (0.0-2.0); EOSINOPHIL # 0.2 TH/MM3 (0-0.4); EOSINOPHIL % 2.8 % (0.0-4.0); HEMATOCRIT 27.5 % (39.0-51.0); HEMO FLAGS DIFF FINAL; LYMPH % 25.3 % (9.0-44.0); LYMPHOCYTE # 1.6 TH/MM3 (1.0-4.8); MEAN CORPUSCULAR HEMOGLOBIN 27.2 PG (27.0-34.0); MEAN CORPUSCULAR HGB CONC 32.3 % (32.0-36.0); MONO % 9.5 % (0.0-8.0); NEUT % 62.1 % (16.0-70.0); PLATELET COUNT 138 TH/MM3 (150-450); RED BLOOD COUNT 3.27 MIL/MM3 (4.50-5.90); RED CELL DISTRIBUTION WIDTH 15.4 % (11.6-17.2); WHITE BLOOD COUNT 6.3 TH/MM3 (4.0-11.0)
[2017-01-23 10:00] LABS: ALKALINE PHOSPHATASE 144 U/L (45-117); ALT (GPT) 14 U/L (12-78); ANION GAP 7 MEQ/L (5-15); AST (GOT) 32 U/L (15-37); BICARBONATE 28.4 MEQ/L (21.0-32.0); BLOOD UREA NITROGEN 24 MG/DL (7-18); CHLORIDE 103 MEQ/L (98-107); GLOMERULAR FILTRATION RATE 41 ML/MIN (>89); POTASSIUM 4.3 MEQ/L (3.5-5.1); SODIUM (NA) 138 MEQ/L (136-145); TOTAL BILIRUBIN ADULT 0.5 MG/DL (0.2-1.0)
--- NOTE | 2017-01-23 10:13 | HHI.PR ---
Subjective Remarks Follow-up CHF exacerbation/community-acquired bacterial pneumonia 01/23/17-patient seen and examined, reports some improvement of shortness of breath and denies any chest pain. Currently afebrile Objective Vitals Vital Signs Date Time Temp Pulse Resp B/P Pulse Ox O2 Delivery O2 Flow Rate FiO2 01/23/17 08:29 98.0 58 18 156/76 95 01/23/17 04:37 98.3 56 16 135/68 95 01/22/17 23:52 98.6 62 16 158/76 98 01/22/17 23:00 59 01/22/17 22:20 62 01/22/17 21:58 60 18 171/81 98 Room Air 01/22/17 21:32 98.3 59 16 160/79 96 01/22/17 21:15 16 01/22/17 18:25 98 2 01/22/17 18:25 56 16 177/77 98 Nasal Cannula 01/22/17 18:07 98.7 58 36 150/73 96 Room Air I/O 01/22/17 01/22/17 01/22/17 01/23/17 01/23/17 01/23/17 06:59 14:59 22:59 06:59 14:59 22:59 Intake Total 360 ml Output Total 425 ml 600 ml Balance -425 ml -240 ml Intake Oral 360 ml Output Urine Total 425 ml 600 ml # Bowel Movements 0 Result Diagram: 01/23/17 0804 01/23/17 08 Imaging Last Impressions Chest X-Ray 01/22/171849 Signed Impressions: Service Date/Time: Sunday, January 22, 2017 19:17 - CONCLUSION: Edema and bilateral effusions. Vin Perez MD Abdomen/Pelvis CT 01/22/171849 Signed Impressions: Service Date/Time: Sunday, January 22, 2017 20:27 - CONCLUSION: Effusions and consolidative changes in the lung bases. Abnormal liver appearance splenomegaly and ascites. Vin Perez MD Objective Remarks GENERAL: SKIN: Warm and dry. HEAD: Normocephalic. EYES: No scleral icterus. No injection or drainage. NECK: Supple, trachea midline. No JVD or lymphadenopathy. CARDIOVASCULAR: Regular rate and rhythm without murmurs, gallops, or rubs. RESPIRATORY: Breath sounds decrease bilaterally. No accessory muscle use. GASTROINTESTINAL: Abdomen soft, non-tender, nondistended. MUSCULOSKELETAL: No cyanosis, +1BLE edema. BACK: Nontender without obvious deformity. No CVA tenderness. A/P Problem List: (1) CHF (congestive heart failure) ICD Code: I50.9 Status: Acute (2) Liver transplant recipient ICD Code: Z94.4 Status: Acute (3) Renal insufficiency ICD Code: N28.9 Status: Acute (4) Hypomagnesemia ICD Code: E83.42 Status: Acute (5) HTN (hypertension) ICD Code: I10 Status: Acute (6) DM (diabetes mellitus) ICD Code: E11.9 Status: Chronic (7) Community acquired bacterial pneumonia ICD Code: J15.9 Status: Acute Assessment and Plan 66-year-old man with 1. CHF: Acute on Chronic. Diastolic. Echo 07/16/16 w/ EF 50-55%, BNP 492, CXR w/ bilateral effusions, continue with Lasix IV and caution w/ renal insufficiency. add Potassium supplement daily 20 mEq. Monitor I/O. Check 2-D echo 2. Community-acquired bacteria PNA: CT Abd/Pelvis w/ consolidative changes bilateral bases, continue with Cefepime/Zithro and monitor response as well as culture 3. Liver Transplant: h/o Liver Transplant 2001, on chronic immunosuppressant therapy w/ Prograf, continue with home medications and monitor level. Consult GI , Dr. Mallory as outpatient. 4. Renal Insufficiency: Creatinine 1.68, previously 1.71 on 12/29/16 and 1.7 today 01/23 caution w/ diuresis. Monitor BMP 5. Hypomagnesemia: Mg 1.5 s/p replacement . Will give 1 g IV 1 now and monitor magnesium 6. HTN: Continue home medications, monitor BP. 7. DM: Sliding scale w/ Accu-Cheks, Hgb A1c pending 8. DVT Prophylaxis: SCD/Teds. Medhat Bartlett MD January 23, 2017 10:13
[2017-01-23] MEDS ORDERED: MAGNESIUM SULFATE 1 GM PREMIX 100 ML IV ONE (10:15)
[2017-01-23] MEDS: RESP: ALBUTEROL 2.5 MG/IPRATROPIUM 0.5 MG NEB (PRN) NEB ×2 (10:19→14:50)
[2017-01-23] MEDS: ACETAMINOPHEN 325 MG TAB PO PRN (11:11)
--- NOTE | 2017-01-23 13:42 | EKG ---
Date Performed: 01/22/2017 Time Performed: 22:14:17 PTAGE: 66 years EKG: Sinus rhythm LEFT VENTRICULAR HYPERTROPHY AND ST-T CHANGE POSSIBLE ANTEROSEPTAL MYOCARDIAL INFARCTION Compared to previous tracing, there has been an increase in the lateral T wave changes. The left axis deviation was previously noted and remains on this EKG. ABNORMAL ECG PREVIOUS TRACING : 10/22/2016 17.27.35 DOCTOR: Tiana Chavez Interpretating Date/Time 01/23/2017 13:41:03
--- NOTE | 2017-01-23 14:52 | PD.CONS ---
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 He has not followed up with [facility] in 5-10 years because of financial reasons. He originally did not want to follow back up with them because of this cost, but now states that he has a different type of insurance coverage and would rather follow up with them over the [place]. However, he does state that he has an outstanding balance from 2007 and is unsure if they will accept him. He presented to the ER with severe left sided abdominal pain and difficulty breathing. He states that the pain began suddenly yesterday and is a constant dull ache in his left side that was radiating to his left shoulder. He cannot identify any aggravating or alleviating factors. He states this pain is better today, but still there. He also has associated shortness of breath. He has had nausea, but denies any nausea, vomiting, bowel changes, melena, or hematochezia. He does note that he has had a poor appetite for the past week. Abdomen/Pelvis CT (01/22/17)----> Effusions and consolidative changes in the lung bases. Abnormal liver appearance splenomegaly and ascites. He was admitted for CHF exacerbation and community acquired bacterial pneumonia. GI was consulted for his history of liver transplant. He is on Prograf 1 mg po BID. Random prograf level was 6. Review of outpatient records: CT Scan abdomen and pelvis without contrast (10/28/16)---> incompletely evaluated moderate right pleural effusion with small left pleural effusion, probable hepatic cirrhosis with splenomegaly and mild mostly perihepatic ascites fluid collection, status post cholecystectomy with persistent mild pneumobilia, senescent changes to include diffuse demineralization, atherosclerotic vascular disease, coronary artery disease, diffuse degenerative changes with possible DISH, and mild prostatic hypertrophy, moderate to severe colonic stool retention, possible persistent small nonobstructing uroliths versus calcified atherosclerotic vascular plaques, mild suboptimal examination secondary to lack of IV contrast with fatty infiltration of the pancreas. EGD/Colonoscopy (10/30/16)----> gastritis was found in the gastric antrum, sessile polyp ranging between 3-5 mm in size was found in the gastric antrum; biopsy was performed retroflexed views revealed no abnormalities; normal colonoscopy, retroflex views revealed internal grade 2 hemorrhoids, digital rectal exam was performed and revealed medium external hemorrhoids. Recommended follow-up in 6 months. Pathology revealed a hyperplastic polyp in the antrum of the stomach, negative for Helicobacter pylori by GMS. US Liver (01/01/17)---> cirrhotic changes in the liver. There is also enlargement of the spleen which could be seen with portal hypertension, ascites is seen in the right upper abdomen, bilateral pleural effusions, increased echogenicity to the right kidney which could suggest medical renal disease. 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 Liver biopsy (01/08/17) at this facility. The results are still pending. Office visit (01/18/17), at which time a referral to [facility] liver service was placed. The patient and his would prefer this to go to [place] if possible. 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 He had negative Hepatitis Profile back in 2011. He reports that he had the series for vaccination for Hepatitis B. Liver cirrhosis Thrombocytopenia Past Surgical History Colonoscopy Liver transplant Liver biopsy (Kenisha Lopez) Coded Allergies: *MDRO Multi-Drug Resistant Organism (Verified Adverse Reaction, Unknown, ) MRSA (heel wound) - 07/23/16 Medications Allergies Coded Allergies Type Severity Reaction Last Updated Verified *MDRO Multi-Drug Resistant Organism Adverse Reaction Unknown 10/22/16 Yes Active Scripts Medications Dose Route/Sig Days Date Category Dose Instructions Lantus Inj (Insulin Glargine) 1,000 Unit/10 Ml Vial 5-15 Units SQ HS 01/22/17 Reported Zolpimist (Zolpidem Tartrate) 5 Mg/Act Spr 10 Mg PO HS 01/08/17 Reported Atorvastatin (Atorvastatin Calcium) 80 Mg Tab 0.5 Tab PO HS 01/08/17 Reported Sorine (Sotalol HCl) 80 Mg Tab 120 Mg PO Q12HR 30 07/29/16 Rx Proscar (Finasteride) 5 Mg Tab 5 Mg PO HS 07/15/16 Reported Do not crush. Lasix (Furosemide) 20 Mg Tab 20 Mg PO BID 07/15/16 Reported Magnesium 250 Mg Tab 500 Mg PO DAILY 07/15/16 Reported Humalog Inj (Insulin Human Lispro) 1,000 Unit/10 Ml Vial 3-12 Units SQ ACHS 07/15/16 Reported Max dose at bedtime:( )units; sugars < 70,(0)units ; sugars 150-199,(2)units; sugars 200-249,(4)units; sugars 250-299,(7)units; sugars 300-349,(10)units; sugars more than 349,(12)units. Omeprazole 20 Mg Tab 20 Mg PO DAILYAC 07/15/16 Reported Prograf (Tacrolimus) 1 Mg Cap 1 Mg PO BID 07/15/16 Reported Ecotrin Low Strength (Aspirin) 81 Mg Tabdr 81 Mg PO DAILY 07/15/16 Reported Folate (Folic Acid) 1 Mg Tab 1 Mg PO BID 07/15/16 Reported Tamsulosin (Tamsulosin HCl) 0.4 Mg Cap 0.4 Mg PO HS 07/15/16 Reported Roxicodone (Oxycodone HCl) 5 Mg Tab 5 Mg PO Q6H PRN 07/15/16 Reported Family History Denies any family hx of autoimmune disorders or esophageal/gastric/colorectal cancer Social History No use of tobacco, etoh, or illicit drug use. Did drink occasionally prior to liver transplant, never a heavy drinker (Kenisha Lopez) Review of Systems Constitutional: COMPLAINS OF: Fatigue, Change in appetite, DENIES: Weight loss Respiratory: COMPLAINS OF: Shortness of breath, DENIES: Cough Cardiovascular: COMPLAINS OF: Lower Extremity Edema, DENIES: Chest pain Gastrointestinal: COMPLAINS OF: Abdominal pain, Nausea, Anorexia, DENIES: Black stools, Bloody stools, Constipation, Diarrhea, Vomiting, Swelling of Abdomen, Hematemesis Musculoskeletal: COMPLAINS OF: Joint pain Hematologic/lymphatic: COMPLAINS OF: Bruising Neurologic: DENIES: Headache Psychiatric: DENIES: Confusion (Kenisha Lopez) GI Exam Vitals I&O Vital Signs Date Time Temp Pulse Resp B/P Pulse Ox O2 Delivery O2 Flow Rate FiO2 01/23/17 12:11 97.7 64 19 162/83 99 01/23/17 10:20 91 21 01/23/17 08:40 57 01/23/17 08:29 98.0 58 18 156/76 95 01/23/17 04:37 98.3 56 16 135/68 95 01/22/17 23:52 98.6 62 16 158/76 98 01/22/17 23:00 59 01/22/17 22:20 62 01/22/17 21:58 60 18 171/81 98 Room Air 01/22/17 21:32 98.3 59 16 160/79 96 01/22/17 21:15 16 01/22/17 18:25 98 2 01/22/17 18:25 56 16 177/77 98 Nasal Cannula 01/22/17 18:07 98.7 58 36 150/73 96 Room Air I/O 01/22/17 01/22/17 01/22/17 01/23/17 01/23/17 01/23/17 07:00 15:00 23:00 07:00 15:00 23:00 Intake Total 360 ml Output Total 425 ml 600 ml Balance -425 ml -240 ml Intake Oral 360 ml Output Urine Total 425 ml 600 ml # Bowel Movements 0 Imaging Last Impressions Chest X-Ray 01/22/171849 Signed Impressions: Service Date/Time: Sunday, January 22, 2017 19:17 - CONCLUSION: Edema and bilateral effusions. Vin Perez MD Abdomen/Pelvis CT 01/22/171849 Signed Impressions: Service Date/Time: Sunday, January 22, 2017 20:27 - CONCLUSION: Effusions and consolidative changes in the lung bases. Abnormal liver appearance splenomegaly and ascites. Vin Perez MD Laboratory Test 01/22/17 01/22/17 01/23/17 19:10 20:45 08:04 White Blood Count 5.8 TH/MM3 6.3 TH/MM3 Red Blood Count 3.29 MIL/MM3 3.27 MIL/MM3 Hemoglobin 9.2 GM/DL 8.9 GM/DL Hematocrit 27.4 % 27.5 % Mean Corpuscular Volume 83.4 FL 84.0 FL Mean Corpuscular Hemoglobin 27.9 PG 27.2 PG Mean Corpuscular Hemoglobin 33.5 % 32.3 % Concent Red Cell Distribution Width 15.0 % 15.4 % Platelet Count 136 TH/MM3 138 TH/MM3 Mean Platelet Volume 8.2 FL 8.1 FL Neutrophils (%) (Auto) 68.2 % 62.1 % Lymphocytes (%) (Auto) 22.1 % 25.3 % Monocytes (%) (Auto) 7.3 % 9.5 % Eosinophils (%) (Auto) 2.2 % 2.8 % Basophils (%) (Auto) 0.2 % 0.3 % Neutrophils # (Auto) 4.0 TH/MM3 3.9 TH/MM3 Lymphocytes # (Auto) 1.3 TH/MM3 1.6 TH/MM3 Monocytes # (Auto) 0.4 TH/MM3 0.6 TH/MM3 Eosinophils # (Auto) 0.1 TH/MM3 0.2 TH/MM3 Basophils # (Auto) 0.0 TH/MM3 0.0 TH/MM3 CBC Comment DIFF FINAL DIFF FINAL Differential Comment Prothrombin Time 13.2 SEC Prothromb Time International 1.2 RATIO Ratio Activated Partial 30.3 SEC Thromboplast Time Sodium Level 136 MEQ/L 138 MEQ/L Potassium Level 4.6 MEQ/L 4.3 MEQ/L Chloride Level 103 MEQ/L 103 MEQ/L Carbon Dioxide Level 28.5 MEQ/L 28.4 MEQ/L Anion Gap 5 MEQ/L 7 MEQ/L Blood Urea Nitrogen 24 MG/DL 24 MG/DL Creatinine 1.68 MG/DL 1.70 MG/DL Estimat Glomerular Filtration 41 ML/MIN 41 ML/MIN Rate Random Glucose 177 MG/DL 142 MG/DL Lactic Acid Level 0.9 mmol/L Calcium Level 8.0 MG/DL 8.1 MG/DL Magnesium Level 1.3 MG/DL 1.5 MG/DL Total Bilirubin 0.7 MG/DL 0.5 MG/DL Aspartate Amino Transf 34 U/L 32 U/L (AST/SGOT) Alanine Aminotransferase 15 U/L 14 U/L (ALT/SGPT) Alkaline Phosphatase 153 U/L 144 U/L Total Creatine Kinase 143 U/L Creatine Kinase MB 5.3 NG/ML Troponin I LESS THAN 0.02 NG/ML B-Type Natriuretic Peptide 492 PG/ML 573 PG/ML Total Protein 9.0 GM/DL 8.9 GM/DL Albumin 2.0 GM/DL 2.0 GM/DL Lipase 71 U/L Urine Color YELLOW Urine Turbidity CLEAR Urine pH 7.0 Urine Specific [place] 1.012 Urine Protein 100 mg/dL Urine Glucose (UA) NEG mg/dL Urine Ketones NEG mg/dL Urine Occult Blood SMALL Urine Nitrite NEG Urine Bilirubin NEG Urine Urobilinogen LESS THAN 2.0 MG/DL Urine Leukocyte Esterase NEG Urine RBC 11 /hpf Urine WBC LESS THAN 1 /hpf Urine Hyaline Casts 1 /lpf Microscopic Urinalysis Comment CULT NOT INDICATED Tacrolimus (Prograf) Level 6.0 NG/ML Date/Time Procedure Status Source Growth 01/22/17 19:55 Aerobic Blood Culture - Preliminary Resulted Blood Line NO GROWTH IN 1 DAY 01/22/17 19:55 Anaerobic Blood Culture - Preliminary Resulted Blood Line NO GROWTH IN 1 DAY Physical Examination HEENT: Normocephalic; atraumatic; no jaundice. CHEST: Resp shallow, mildly tachypneic, diminished. O2 sat 98% r/a CARDIAC: RRR- 64 ABDOMEN: Soft, nondistended, nontender; bowel sounds are present in all four quadrants. EXTREMITIES: BLE edema. SKIN: Normal; no rash; no jaundice. CIVIL DESIGN TECHNICIAN: No focal deficits; Lethargic and oriented times three. (Kenisha Lopez) Assessment and Plan Plan ASSESSMENT: - Liver cirrhosis, with hx of orthotopic liver transplant for liver cirrhosis secondary to primary sclerosing cholangitis in 2001 at the [facility] in [place] and current liver cirrhosis and thrombocytopenia. He has not followed up with [facility] in 5-10 years because of financial reasons, but states his insurance coverage has changed and he would now [facility]. However, he does state that he has an outstanding balance from 2007 and is unsure if they will accept him. Abdomen/Pelvis CT (01/22/17)----> Effusions and consolidative changes in the lung bases. Abnormal liver appearance splenomegaly and ascites. OUTPT RECORDS: US Liver (01/01/17)---> cirrhotic changes in the liver. There is also enlargement of the spleen which could be seen with portal hypertension, ascites is seen in the right upper abdomen, bilateral pleural effusions, increased echogenicity to the right kidney which could suggest medical renal disease. 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 He had worsening LFTs and therefore Liver biopsy (01/08/17) was done at this facility- pending. Will call Pathology Dept. on Wednesday to check the status of this. He was last seen by Dr. Mallory in office on (01/18/17), at which time a referral to [facility] liver service was placed. The patient and his would prefer this to go to [place] if possible. Prograf. MELD 11. - Anemia. 8.9/27.5. EGD/Colonoscopy (10/30/16)----> gastritis was found in the gastric antrum, sessile polyp ranging between 3-5 mm in size was found in the gastric antrum; biopsy was performed retroflexed views revealed no abnormalities; normal colonoscopy, retroflex views revealed internal grade 2 hemorrhoids, digital rectal exam was performed and revealed medium external hemorrhoids. Recommended follow-up in 6 months. Pathology revealed a hyperplastic polyp in the antrum of the stomach, negative for Helicobacter pylori by GMS. - Ascites. Lasix. - Thrombocytopenia. Plt 138. No active bleeding. - GERD. PPI. - CHF Exacerbation. Lasix, per primary - Community acquired pneumonia. Cefepime, Zithromax, per primary. - RAN. Creat 1.70. - Anxiety, Depression, HTN, PVD, DM, Hyperlipidemia, Vitamin D Deficiency. Per primary. PLAN: - Low salt diet - Cont. Prograf - Cont. PPI - Cont. Lasix - Monitor labs - Supportive care - Will call pathology department on Wednesday to check the status of 01/08 liver biopsy - Further recommendations to follow based on results of above - PT seen and examined by Dr. Benitez and myself and this note is written on her behalf (Kenisha Lopez) Physician Comments seen, examined agree with above (Stephanie Benitez MD) Kenisha Lopez January 23, 2017 14:52 Stephanie Benitez MD January 23, 2017 19:28
[2017-01-23] MEDS: MORPHINE SULFATE 4 MG/ML INJ IV PRN ×3 (15:37→22:15)
[2017-01-23] MEDS ORDERED: RESP: ALBUTEROL 2.5 MG/IPRATROPIUM 0.5 MG NEB (PRN) NEB (15:45)
[2017-01-23] MEDS: TAMSULOSIN HCL 0.4 MG CAP PO SCH (20:43)
[2017-01-23] MEDS: FINASTERIDE 5 MG TAB PO SCH (20:43)
[2017-01-23] MEDS: AZITHROMYCIN 250 MG TAB PO SCH (20:44)
[2017-01-23] MEDS: ATORVASTATIN 40 MG TAB PO SCH (20:45)
[2017-01-23] MEDS ORDERED: AZITHROMYCIN INJ 500 MG in SODIUM CHLOR 0.9% 250 ML INJ 250 ML IV SCH (21:00)
[2017-01-23] MEDS ORDERED: TAMSULOSIN HCL 0.4 MG CAP PO SCH (21:00)
[2017-01-24] VITALS (12 sets, daily range): BP systolic 121–181; BP diastolic 56–86; PULSE 53–64; RESP 18–20; TEMP 97.4–98.3; O2SAT 94–99
[2017-01-24] MEDS: MORPHINE SULFATE 4 MG/ML INJ IV PRN ×3 (01:14→10:21)
[2017-01-24] MEDS: INSULIN ASPART SUPPLEMENTAL SCALE SQ SCH ×4 (06:38→21:00)
[2017-01-24] MEDS: RESP: ALBUTEROL 2.5 MG/IPRATROPIUM 0.5 MG NEB (SCH) NEB ×3 (08:17→19:00)
[2017-01-24 09:16] LABS: AUTOMATED NEUTROPHIL # 4.1 TH/MM3 (1.8-7.7); BASOPHIL % 0.3 % (0.0-2.0); EOSINOPHIL # 0.2 TH/MM3 (0-0.4); HEMATOCRIT 26.9 % (39.0-51.0); HEMO FLAGS DIFF FINAL; LYMPH % 23.2 % (9.0-44.0); LYMPHOCYTE # 1.5 TH/MM3 (1.0-4.8); MEAN CELL VOLUME 83.1 FL (80.0-100.0); MEAN CORPUSCULAR HEMOGLOBIN 27.8 PG (27.0-34.0); MEAN CORPUSCULAR HGB CONC 33.5 % (32.0-36.0); MONO % 8.7 % (0.0-8.0); NEUT % 64.8 % (16.0-70.0); PLATELET COUNT 155 TH/MM3 (150-450); RED BLOOD COUNT 3.23 MIL/MM3 (4.50-5.90); RED CELL DISTRIBUTION WIDTH 15.2 % (11.6-17.2); WHITE BLOOD COUNT 6.3 TH/MM3 (4.0-11.0)
[2017-01-24 09:43] LABS: BICARBONATE 27.5 MEQ/L (21.0-32.0); MAGNESIUM 1.5 MG/DL (1.5-2.5); POTASSIUM 4.4 MEQ/L (3.5-5.1)
[2017-01-24] MEDS: FUROSEMIDE 20 MG/2 ML VIAL IV PUSH SCH ×2 (09:46→17:27)
[2017-01-24] MEDS: SOTALOL HCL 80 MG TAB PO SCH ×2 (09:46→21:10)
[2017-01-24] MEDS: FOLIC ACID 1 MG TAB PO SCH ×2 (09:46→21:08)
[2017-01-24] MEDS: ASPIRIN EC 81 MG TABEC PO SCH (09:46)
[2017-01-24] MEDS: POTASSIUM CHLORIDE 20 MEQ CONTROLLED RELEASE TAB PO SCH (09:46)
[2017-01-24] MEDS: PANTOPRAZOLE SOD 20 MG DELAYED RELEASE TAB PO SCH (09:46)
[2017-01-24] MEDS: TACROLIMUS 1 MG CAP PO SCH ×2 (09:46→21:09)
[2017-01-24] MEDS: CEFEPIME INJ 1,000 MG in SODIUM CHLORIDE 0.9% INJ 100 ML IV SCH ×2 (09:47→21:12)
[2017-01-24] MEDS: MAGNESIUM OXIDE 400 MG TAB PO SCH (09:47)
[2017-01-24] MEDS: SODIUM CHLORIDE 0.9% FLUSH 10 ML FLUSH IV FLUSH SCH ×2 (09:48→21:12)
--- NOTE | 2017-01-24 10:12 | HHI.PR ---
Subjective Remarks Follow-up CHF exacerbation/community-acquired bacterial pneumonia 01/23/17-patient seen and examined, reports some improvement of shortness of breath and denies any chest pain. Currently afebrile 01/24/17-patient seen and examined; denies any chest pain and reports some improvement of bilateral was community swelling as well as shortness of breath. Objective Vitals Vital Signs Date Time Temp Pulse Resp B/P Pulse Ox O2 Delivery O2 Flow Rate FiO2 01/24/17 06:42 64 01/24/17 04:00 97.8 53 18 121/56 98 01/24/17 00:00 98.3 56 18 152/70 99 01/23/17 20:00 57 01/23/17 20:00 98.0 57 16 156/77 97 01/23/17 16:28 98.2 57 20 160/75 98 01/23/17 12:11 97.7 64 19 162/83 99 01/23/17 10:20 91 21 I/O 01/23/17 01/23/17 01/23/17 01/24/17 01/24/17 01/24/17 07:00 15:00 23:00 07:00 15:00 23:00 Intake Total 360 ml 480 ml 360 ml 180 ml Output Total 600 ml 1200 ml 350 ml 500 ml Balance -240 ml -720 ml 10 ml -320 ml Intake Oral 360 ml 480 ml 360 ml 180 ml Output Urine Total 600 ml 1200 ml 350 ml 500 ml # Bowel Movements 0 0 0 0 Result Diagram: 01/24/17 0844 01/24/17 0844 Objective Remarks GENERAL: SKIN: Warm and dry. HEAD: Normocephalic. EYES: No scleral icterus. No injection or drainage. NECK: Supple, trachea midline. No JVD or lymphadenopathy. CARDIOVASCULAR: Regular rate and rhythm without murmurs, gallops, or rubs. RESPIRATORY: Breath sounds decrease bilaterally. No accessory muscle use. GASTROINTESTINAL: Abdomen soft, non-tender, nondistended. MUSCULOSKELETAL: No cyanosis, +trace BLE edema. BACK: Nontender without obvious deformity. No CVA tenderness. A/P Problem List: (1) CHF (congestive heart failure) ICD Code: I50.9 Status: Acute (2) Liver transplant recipient ICD Code: Z94.4 Status: Acute (3) Renal insufficiency ICD Code: N28.9 Status: Acute (4) Hypomagnesemia ICD Code: E83.42 Status: Acute (5) HTN (hypertension) ICD Code: I10 Status: Acute (6) DM (diabetes mellitus) ICD Code: E11.9 Status: Chronic (7) Community acquired bacterial pneumonia ICD Code: J15.9 Status: Acute Assessment and Plan 66-year-old man with 1. CHF: Acute on Chronic. Diastolic. Echo 07/16/16 w/ EF 50-55%, BNP 492, CXR w/ bilateral effusions, continue with Lasix IV and caution w/ renal insufficiency. Continue Potassium supplement daily 20 mEq. Monitor I/O. 2-D echo pending 2. Community-acquired bacteria PNA: CT Abd/Pelvis w/ consolidative changes bilateral bases, continue with Cefepime/Zithro 3. Liver Transplant: h/o Liver Transplant 2001, on chronic immunosuppressant therapy w/ Prograf, continue with home medications and monitor level. Appreciate input from GI . 4. Renal Insufficiency: caution w/ diuresis. Monitor BMP 5. Hypomagnesemia: Mg 1.5 s/p replacements x 2 . 6. HTN: Continue home medications, monitor BP. 7. DM: Sliding scale w/ Accu-Cheks, Hgb A1c pending 8. DVT Prophylaxis: SCD/Teds. Medhat Bartlett MD January 24, 2017 10:12
[2017-01-24 10:47] LABS: HEMOGLOBIN A1a 1.1 %; HEMOGLOBIN A1b 1.8 %; HEMOGLOBIN LA1C 2.5 %; HEMOGLOBIN P3 6.3 %
--- NOTE | 2017-01-24 13:47 | EC ---
Study Study Date:01/24/2017 STUDY CONCLUSIONS SUMMARY - Left ventricle: The cavity size was normal. Wall thickness was increased in a pattern of moderate LVH. Systolic function was normal. The estimated ejection fraction was in the range of 60% to 65%. Wall motion was normal; there were no regional wall motion abnormalities. - Aortic valve: Valve area: 3.4cm^2 (Vmax). - Mitral valve: Mildly calcified annulus. - Left atrium: The atrium was mildly dilated. If LV function is below 40, please consider prescribing an ACEI or ARB or document rationale for non-use. PROCEDURE DATA STUDY STATUS: Elective. Procedure: Transthoracic echocardiography. Image quality was good. Scanning was performed from the parasternal, apical, and subcostal acoustic windows. Study completion: The patient tolerated the procedure well. Transthoracic echocardiography. M-mode, complete 2D, complete spectral Doppler, and color Doppler. Height: Height: 76in. Weight: Weight: 230.5lb. Body mass index: BMI: 28.1kg/m^2. Body surface area: BSA: 2.36m^2. Patient status: Inpatient. CARDIAC ANATOMY LEFT VENTRICLE: The cavity size was normal. Wall thickness was increased in a pattern of moderate LVH. Systolic function was normal. The estimated ejection fraction was in the range of 60% to 65%. Wall motion was normal; there were no regional wall motion abnormalities. AORTIC VALVE: Trileaflet; mildly thickened, mildly calcified leaflets. Doppler: Transvalvular velocity was within the normal range. There was no stenosis. No regurgitation. Valve area: 3.4cm^2 (Vmax). Indexed valve area: 1.44cm^2/m^2 (Vmax). Peak gradient: 11mm Hg (S). AORTA: Aortic root: The aortic root was normal in size. MITRAL VALVE: Mildly calcified annulus. Doppler: Transvalvular velocity was within the normal range. There was no evidence for stenosis. Trace regurgitation. Peak gradient: 5mm Hg (D). LEFT ATRIUM: The atrium was mildly dilated. RIGHT VENTRICLE: The cavity size was normal. Wall thickness was normal. PULMONIC VALVE: Doppler: Transvalvular velocity was within the normal range. There was no evidence for stenosis. No regurgitation. TRICUSPID VALVE: Structurally normal valve. Doppler: Transvalvular velocity was within the normal range. Trace regurgitation. PULMONARY ARTERY: The main pulmonary artery was normal-sized. Systolic pressure was within the normal range. RIGHT ATRIUM: The atrium was normal in size. PERICARDIUM: There was no pericardial effusion. SYSTEMIC VEINS: Inferior vena cava: The vessel was normal in size. Patient weight: 230.5lb _Ejection fraction:_ 65-75% _Fractional shortening:_ 32% up to 5Kg 5-11.5Kg 11.6-22.9Kg 23-45Kg 45-57Kg Aortic Root 7-13 <17 13-22 17-27 17-27 LA diam 6-13 <23 24-38 33-47 37-40 RVID 10-17 7-15 7-15 7-18 8-17 LVIDd 12-22 <32 24-38 33-47 37-40 LVPW 2-4 3-6 5-7 6-8 7-8 IVS 2-4 3-6 5-7 6-8 7-8 BASIC MEASUREMENTS ADULT NORMAL Left ventricle LV internal dimension, ED, chordal *52.2 mm 43-52 level, PLAX LV internal dimension, ES, chordal 36.1 mm 23-38 level, PLAX Fractional shortening, chordal level, 31 % >29 PLAX LV posterior wall thickness, ED 8.8 mm IVS/LVPW ratio, ED 1 <1.3 Ventricular septum Septal thickness, ED 8.8 mm Aortic valve Leaflet separation 18 mm 15-26 BASIC MEASUREMENTS ADULT NORMAL Aortic valve Leaflet separation 18 mm 15-26 Aorta Root diameter, ED 32 mm 20-37 Left atrium Anterior-posterior dimension, ES 39 mm 19-40 Anterior-posterior dimension index, ES 1.65 cm/m^2 <2.2 LA/aortic root ratio 1.22 DOPPLER MEASUREMENTS ADULT NORMAL Main pulmonary artery Pressure, S 28 mm Hg =30 Aortic valve Peak velocity, S 163 cm/s Peak gradient, S 11 mm Hg Valve area, Vmax 3.4 cm^2 Valve area index, Vmax 1.44 cm^2/m^2 Mitral valve Peak E-wave velocity 109 cm/s Peak A-wave velocity 67.1 cm/s Deceleration time *246 ms 150-230 Peak gradient, D 5 mm Hg Peak E/A ratio 1.6 Maximal regurgitant velocity 375 cm/s Tricuspid valve Regurgitant peak velocity 233 cm/s Peak RV-RA gradient, S 22 mm Hg Maximal regurgitant velocity 233 cm/s Systemic veins Estimated CVP 10 mm Hg Right ventricle RV pressure, S *32 mm Hg <30 Pulmonic valve Peak velocity, S 105 cm/s LEGEND: Mean values are shown as u=mean value. Asterisk (*) morales values outside specified normal range. Prepared and signed by Terrell Orozco [id number]
[2017-01-24] MEDS ORDERED: ONDANSETRON HCL 4 MG/2 ML VIAL IV PUSH ONE (20:45)
[2017-01-24] MEDS: AZITHROMYCIN 250 MG TAB PO SCH (21:09)
[2017-01-24] MEDS: ATORVASTATIN 40 MG TAB PO SCH (21:09)
[2017-01-24] MEDS: FINASTERIDE 5 MG TAB PO SCH (21:10)
[2017-01-24] MEDS: TAMSULOSIN HCL 0.4 MG CAP PO SCH (21:11)
[2017-01-25] VITALS (10 sets, daily range): BP systolic 137–171; BP diastolic 65–77; PULSE 50–52; RESP 18–20; TEMP 97.4–98.9; O2SAT 98–100
[2017-01-25] MEDS ORDERED: FURO20TA PO (02:02)
[2017-01-25] MEDS ORDERED: ZOLP10TA3 PO (02:02)
[2017-01-25] MEDS ORDERED: AMLO5TAB2 PO (02:02)
[2017-01-25] MEDS ORDERED: SPIR25TA PO (02:02)
[2017-01-25] MEDS ORDERED: VITA10003 PO (02:02)
[2017-01-25] MEDS: INSULIN ASPART SUPPLEMENTAL SCALE SQ SCH ×4 (06:12→21:00)
[2017-01-25] MEDS: RESP: ALBUTEROL 2.5 MG/IPRATROPIUM 0.5 MG NEB (SCH) NEB ×3 (08:00→20:56)
[2017-01-25] MEDS: MORPHINE SULFATE 4 MG/ML INJ IV PRN ×4 (08:28→22:04)
[2017-01-25] MEDS: SODIUM CHLORIDE 0.9% FLUSH 10 ML FLUSH IV FLUSH SCH ×2 (08:29→22:00)
[2017-01-25] MEDS: ASPIRIN EC 81 MG TABEC PO SCH (08:32)
[2017-01-25] MEDS: PANTOPRAZOLE SOD 20 MG DELAYED RELEASE TAB PO SCH (08:32)
[2017-01-25] MEDS: CEFEPIME INJ 1,000 MG in SODIUM CHLORIDE 0.9% INJ 100 ML IV SCH ×2 (08:32→22:00)
[2017-01-25] MEDS: POTASSIUM CHLORIDE 20 MEQ CONTROLLED RELEASE TAB PO SCH (08:32)
[2017-01-25] MEDS: FOLIC ACID 1 MG TAB PO SCH ×2 (08:32→22:03)
[2017-01-25] MEDS: TACROLIMUS 1 MG CAP PO SCH ×2 (08:33→22:02)
[2017-01-25] MEDS: MAGNESIUM OXIDE 400 MG TAB PO SCH (08:33)
[2017-01-25] MEDS: SOTALOL HCL 80 MG TAB PO SCH ×2 (08:34→22:02)
[2017-01-25] MEDS: FUROSEMIDE 20 MG/2 ML VIAL IV PUSH SCH ×2 (08:34→18:35)
--- NOTE | 2017-01-25 08:48 | HHI.PR ---
Subjective Remarks Follow-up CHF exacerbation/community-acquired bacterial pneumonia 01/23/17-patient seen and examined, reports some improvement of shortness of breath and denies any chest pain. Currently afebrile 01/24/17-patient seen and examined; denies any chest pain and reports some improvement of bilateral was community swelling as well as shortness of breath. 01/25/17-patient seen and examined, still complained of left upper quadrant pain or denies any significant shortness of breath or chest pain. Objective Vitals Vital Signs Date Time Temp Pulse Resp B/P Pulse Ox O2 Delivery O2 Flow Rate FiO2 01/25/17 08:02 99 Nasal Cannula 2.00 01/25/17 04:00 98.1 52 20 138/66 99 01/25/17 03:00 97.9 51 20 137/65 99 01/24/17 22:25 97.8 55 20 145/69 94 01/24/17 19:52 54 01/24/17 19:32 97.8 54 181/86 99 01/24/17 16:00 97.9 54 18 168/78 97 01/24/17 12:00 97.4 55 18 172/80 99 01/24/17 08:50 54 I/O 01/24/17 01/24/17 01/24/17 01/25/17 01/25/17 01/25/17 07:00 15:00 23:00 07:00 15:00 23:00 Intake Total 180 ml 720 ml Output Total 500 ml 350 ml Balance -320 ml 370 ml Intake Oral 180 ml 720 ml Output Urine Total 500 ml 350 ml # Bowel Movements 0 Result Diagram: 01/24/1744 01/24/17 0844 Objective Remarks GENERAL: SKIN: Warm and dry. HEAD: Normocephalic. EYES: No scleral icterus. No injection or drainage. NECK: Supple, trachea midline. No JVD or lymphadenopathy. CARDIOVASCULAR: Regular rate and rhythm without murmurs, gallops, or rubs. RESPIRATORY: Breath sounds decrease bilaterally. No accessory muscle use. GASTROINTESTINAL: Abdomen soft, tender TP LUQ, nondistended. MUSCULOSKELETAL: No cyanosis, +trace BLE edema. BACK: Nontender without obvious deformity. No CVA tenderness. A/P Problem List: (1) CHF (congestive heart failure) ICD Code: I50.9 Status: Acute (2) Liver transplant recipient ICD Code: Z94.4 Status: Acute (3) Renal insufficiency ICD Code: N28.9 Status: Acute (4) Hypomagnesemia ICD Code: E83.42 Status: Acute (5) HTN (hypertension) ICD Code: I10 Status: Acute (6) DM (diabetes mellitus) ICD Code: E11.9 Status: Chronic (7) Community acquired bacterial pneumonia ICD Code: J15.9 Status: Acute Assessment and Plan 66-year-old man with 1. CHF: Acute on Chronic. Diastolic. Echo 07/16/16 w/ EF 50-55%, BNP 492, CXR w/ bilateral effusions, continue with Lasix IV and caution w/ renal insufficiency. Continue Potassium supplement daily 20 mEq. Monitor I/O. 2-D echo with EF 60-65% 2. Community-acquired bacteria PNA: CT Abd/Pelvis w/ consolidative changes bilateral bases, continue with Cefepime/Zithro 3. Liver Transplant: h/o Liver Transplant 2001, on chronic immunosuppressant therapy w/ Prograf, continue with home medications and monitor level. Appreciate input from GI . 4. Renal Insufficiency: caution w/ diuresis. Monitor BMP in a.m. 5. Hypomagnesemia: Mg 1.5 s/p replacements x 2 . 6. HTN: Continue home medications, monitor BP. 7. DM: Sliding scale w/ Accu-Cheks, Hgb A1c 7.3 8. DVT Prophylaxis: SCD/Teds. 9. Left upper quadrant pain: Check ultrasound spleen Medhat Bartlett MD January 25, 2017 08:48
--- NOTE | 2017-01-25 10:05 | RADRPT ---
EXAM DATE/TIME: 01/25/2017 09:00 [facility] COMPARISON: US KIDNEY/RENAL/BLADDER, May 19, 2016, 22:30. EXTERNAL COMPARISON : [facility], Ultrasound liver January 01, 2017 INDICATIONS : Abdominal mass. MEDICAL HISTORY : Neuropathy. SOB. CHF. A.FIB. Hypertension. Dyspena. IBS. GERD. Diabetes. Kidney stones. Bulging disk L5. MRSA. SURGICAL HISTORY : Cardiac ablation. Liver transplant. ENCOUNTER: Initial ACUITY: 1 day PAIN SCORE: 10/10 LOCATION: Left upper quadrant MEASUREMENTS: SPLEEN: 14.0 cm length FINDINGS: The examination was performed as a limited left or quadrant ultrasound to assess the spleen. The sple en appears mildly enlarged measuring 14 x 4.5 cm. The echotexture is within normal limits. No mass is seen. Note is made of a left pleural effusion. CONCLUSION: 1. Mild enlargement of the spleen. 2. Left pleural effusion. Casimiro Goss MD on January 25, 2017 at 9:59 Board Certified Radiologist. This report was verified electronically.
--- NOTE | 2017-01-25 13:46 | HHI.GIFU ---
GI Follow-up Note Consult Follow-up Subjective: Patient laying in bed comfortably, no new complaints. Denies abdominal pain but does have fullness in left upper quadrant. He had liver biopsy on january 08 2017 but results are not available yet. Will be available on Wednesday this week. The slides were sent to [facility] for review. Pt is short of breath but today is a bit improved. Objective: PHYSICAL EXAMINATION: Vitals signs stable No fever HEENT: Pupils round and reactive to light; normocephalic; atraumatic; no jaundice. Throat is clear. NECK: Neck is supple, no JVD, no lymphadenopathy. CHEST: Chest is clear to auscultation and percussion. CARDIAC: Regular rate and rhythm with no murmur gallop or rubs. ABDOMEN: Soft, nondistended, nontender; no hepatosplenomegaly; bowel sounds are present in all four quadrants. EXTREMITIES: No clubbing, cyanosis, or edema. SKIN: Normal; no rash; no jaundice. 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 Available Data (labs, X- Rays, Procedues) : Laboratory Tests Test 01/22/17 01/22/17 01/23/17 01/24/17 19:10 20:45 08:04 08:44 Red Blood Count 3.29 MIL/MM3 3.27 MIL/MM3 3.23 MIL/MM3 (4.50-5.90) (4.50-5.90) (4.50-5.90) Hemoglobin 9.2 GM/DL 8.9 GM/DL 9.0 GM/DL (13.0-17.0) (13.0-17.0) (13.0-17.0) Hematocrit 27.4 % 27.5 % 26.9 % (39.0-51.0) (39.0-51.0) (39.0-51.0) Platelet Count 136 TH/MM3 138 TH/MM3 (150-450) (150-450) Prothrombin Time 13.2 SEC (9.8-11.6) Activated Partial 30.3 SEC Thromboplast Time (24.3-30.1) Blood Urea Nitrogen 24 MG/DL (7-18) 24 MG/DL (7-18) 24 MG/DL (7-18) Creatinine 1.68 MG/DL 1.70 MG/DL 1.72 MG/DL (0.60-1.30) (0.60-1.30) (0.60-1.30) Estimat Glomerular Filtration 41 ML/MIN (>89) 41 ML/MIN (>89) 40 ML/MIN (>89) Rate Random Glucose 177 MG/DL 142 MG/DL 131 MG/DL (74-106) (74-106) (74-106) Calcium Level 8.0 MG/DL 8.1 MG/DL 8.2 MG/DL (8.5-10.1) (8.5-10.1) (8.5-10.1) Magnesium Level 1.3 MG/DL (1.5-2.5) Alkaline Phosphatase 153 U/L 144 U/L (45-117) (45-117) Creatine Kinase MB 5.3 NG/ML (0.5-3.6) Troponin I LESS THAN 0.02 NG/ML (0.02-0.05) B-Type Natriuretic Peptide 492 PG/ML 573 PG/ML (0-100) (0-100) Total Protein 9.0 GM/DL 8.9 GM/DL (6.4-8.2) (6.4-8.2) Albumin 2.0 GM/DL 2.0 GM/DL (3.4-5.0) (3.4-5.0) Lipase 71 U/L (73-393) Urine Protein 100 mg/dL (NEG-TRACE) Urine Occult Blood SMALL (NEG) Urine RBC 11 /hpf (0-3) Monocytes (%) (Auto) 9.5 % (0.0-8.0) 8.7 % (0.0-8.0) Hemoglobin A1c 7.3 % (4.3-6.0) ASSESSMENT/PLAN: cirrhosis of the liver with splenomegaly and ascites. Status post liver transplantation in 2001 at [place] Awaiting result of liver biopsy from 01/08 will be available in 2 days. Pneumonia and CHF Plan: Continue to follow with you. Await biopsy result. It was a pleasure seeing Juan Daniel [address]. Thank you for this consult. Entered by: Jasbir Rowe MD January 25, 2017 13:45
[2017-01-25] MEDS: ONDANSETRON HCL 4 MG/2 ML VIAL IVP PRN ×2 (14:25→22:04)
[2017-01-25] MEDS: SODIUM CHLORIDE 0.9% FLUSH 10 ML FLUSH IV FLUSH PRN ×2 (14:26→18:36)
--- NOTE | 2017-01-25 15:32 | RADRPT ---
EXAM DATE/TIME: 01/25/2017 14:18 [facility] COMPARISON: No previous studies available for comparison. INDICATIONS : Shortness of breath. MEDICAL HISTORY : Neuropathy. SOB. CHF. A.FIB. Hypertension. Dyspena. IBS. GERD. Diabetes. SURGICAL HISTORY : Cardiac ablation. Liver transplant. ENCOUNTER: Subsequent ACUITY: 1 day PAIN SCORE: 8/10 LOCATION: Left chest MEASUREMENTS: SKIN TO PARIETAL PLEURA: 2.5 cm SKIN TO MAX SAFE DEPTH: 4.9 cm ESTIMATED FLUID VOLUME: 208.0 cc FLUID COMPOSITION: simple FINDINGS: Pleural effusion as above. CONCLUSION: Pleural effusion as described above Joni Goss MD FACR on January 25, 2017 at 15:29 Board Certified Radiologist. This report was verified electronically.
[2017-01-25] MEDS ORDERED: amLODIPine BESYLATE 5 MG TAB PO ONE (21:00)
[2017-01-25] MEDS: ATORVASTATIN 40 MG TAB PO SCH ×2 (21:00→22:03)
[2017-01-25] MEDS: AZITHROMYCIN 250 MG TAB PO SCH (22:01)
[2017-01-25] MEDS: TAMSULOSIN HCL 0.4 MG CAP PO SCH (22:01)
[2017-01-25] MEDS: FINASTERIDE 5 MG TAB PO SCH (22:03)
[2017-01-26] VITALS (9 sets, daily range): BP systolic 108–174; BP diastolic 55–80; PULSE 50–55; RESP 18–20; TEMP 97.5–98.2; O2SAT 95–100
[2017-01-26] MEDS: MORPHINE SULFATE 4 MG/ML INJ IV PRN ×6 (02:06→22:19)
[2017-01-26] MEDS: INSULIN ASPART SUPPLEMENTAL SCALE SQ SCH ×4 (05:54→22:15)
[2017-01-26 07:45] LABS: BICARBONATE 27.9 MEQ/L (21.0-32.0); POTASSIUM 4.5 MEQ/L (3.5-5.1)
[2017-01-26] MEDS: RESP: ALBUTEROL 2.5 MG/IPRATROPIUM 0.5 MG NEB (SCH) NEB ×3 (08:08→19:07)
[2017-01-26] MEDS: CEFEPIME INJ 1,000 MG in SODIUM CHLORIDE 0.9% INJ 100 ML IV SCH ×2 (08:49→20:48)
[2017-01-26] MEDS: TACROLIMUS 1 MG CAP PO SCH ×2 (08:50→20:54)
[2017-01-26] MEDS: amLODIPine BESYLATE 5 MG TAB PO SCH (08:50)
[2017-01-26] MEDS: FUROSEMIDE 20 MG/2 ML VIAL IV PUSH SCH ×2 (08:50→18:39)
[2017-01-26] MEDS: ASPIRIN EC 81 MG TABEC PO SCH (08:50)
[2017-01-26] MEDS: PANTOPRAZOLE SOD 20 MG DELAYED RELEASE TAB PO SCH (08:51)
[2017-01-26] MEDS: SOTALOL HCL 80 MG TAB PO SCH ×2 (08:51→20:47)
[2017-01-26] MEDS: MAGNESIUM OXIDE 400 MG TAB PO SCH (08:51)
[2017-01-26] MEDS: FOLIC ACID 1 MG TAB PO SCH ×2 (08:52→20:48)
[2017-01-26] MEDS: POTASSIUM CHLORIDE 20 MEQ CONTROLLED RELEASE TAB PO SCH (08:53)
[2017-01-26] MEDS: SODIUM CHLORIDE 0.9% FLUSH 10 ML FLUSH IV FLUSH SCH ×2 (08:53→20:48)
[2017-01-26] MEDS: ONDANSETRON HCL 4 MG/2 ML VIAL IVP PRN (09:44)
--- NOTE | 2017-01-26 10:55 | HHI.PR ---
Subjective Remarks Follow-up CHF exacerbation/community-acquired bacterial pneumonia 01/23/17-patient seen and examined, reports some improvement of shortness of breath and denies any chest pain. Currently afebrile 01/24/17-patient seen and examined; denies any chest pain and reports some improvement of bilateral was community swelling as well as shortness of breath. 01/25/17-patient seen and examined, still complained of left upper quadrant pain or denies any significant shortness of breath or chest pain. 01/26/17-patient seen and examined, reports some improvement or shortness of breath as well as lower extremity swelling. Complains of nausea but no emesis. Still has some left lower quadrant abdominal pain. Objective Vitals Vital Signs Date Time Temp Pulse Resp B/P Pulse Ox O2 Delivery O2 Flow Rate FiO2 01/26/17 08:08 97 Nasal Cannula 2.00 01/26/17 08:00 98.2 53 20 174/76 97 01/26/17 04:00 98.2 53 18 154/72 96 01/26/17 00:36 97.6 54 18 170/80 100 01/25/17 20:57 98 Nasal Cannula 2.00 01/25/17 20:38 98.3 52 18 171/77 100 01/25/17 20:32 51 01/25/17 18:41 18 01/25/17 17:45 18 01/25/17 16:00 98.9 50 20 148/70 99 01/25/17 12:00 97.4 52 20 161/74 98 I/O 01/25/17 01/25/17 01/25/17 01/26/17 01/26/17 01/26/17 07:00 15:00 23:00 07:00 15:00 23:00 Intake Total 730 ml 6 ml 6 ml Output Total 900 ml 500 ml 250 ml Balance -170 ml -494 ml -244 ml Intake Oral 730 ml IV Total 6 ml 6 ml Output Urine Total 900 ml 500 ml 250 ml # Bowel Movements 0 0 0 Result Diagram: 01/24/17 0844 01/26/17 0705 Imaging Last Impressions Spleen Ultrasound 01/25/17 0000 Signed Impressions: Service Date/Time: Wednesday, January 25, 2017 09:00 - CONCLUSION: 1. Mild enlargement of the spleen. 2. Left pleural effusion. Casimiro Goss MD Chest Ultrasound 01/25/17 0000 Signed Impressions: Service Date/Time: Wednesday, January 25, 2017 14:18 - CONCLUSION: Pleural effusion as described above Joni Goss MD FACR Chest X-Ray 01/22/171849 Signed Impressions: Service Date/Time: Sunday, January 22, 2017 19:17 - CONCLUSION: Edema and bilateral effusions. Vin Perez MD Abdomen/Pelvis CT 01/22/171849 Signed Impressions: Service Date/Time: Sunday, January 22, 2017 20:27 - CONCLUSION: Effusions and consolidative changes in the lung bases. Abnormal liver appearance splenomegaly and ascites. Vin Perez MD Objective Remarks GENERAL: SKIN: Warm and dry. HEAD: Normocephalic. EYES: No scleral icterus. No injection or drainage. NECK: Supple, trachea midline. No JVD or lymphadenopathy. CARDIOVASCULAR: Regular rate and rhythm without murmurs, gallops, or rubs. RESPIRATORY: Breath sounds decrease bilaterally. No accessory muscle use. GASTROINTESTINAL: Abdomen soft, tender TP LUQ, nondistended. MUSCULOSKELETAL: No cyanosis, +trace BLE edema. BACK: Nontender without obvious deformity. No CVA tenderness. A/P Problem List: (1) CHF (congestive heart failure) ICD Code: I50.9 Status: Acute (2) Liver transplant recipient ICD Code: Z94.4 Status: Acute (3) Renal insufficiency ICD Code: N28.9 Status: Acute (4) Hypomagnesemia ICD Code: E83.42 Status: Acute (5) HTN (hypertension) ICD Code: I10 Status: Acute (6) DM (diabetes mellitus) ICD Code: E11.9 Status: Chronic (7) Community acquired bacterial pneumonia ICD Code: J15.9 Status: Acute Assessment and Plan 66-year-old man with 1. CHF: Acute on Chronic. Diastolic. Echo 07/16/16 w/ EF 50-55%, BNP 492, CXR w/ bilateral effusions, improving and continue with Lasix IV and caution w/ renal insufficiency. Continue Potassium supplement daily 20 mEq. Monitor I/O. 2-D echo with EF 60-65% 2. Community-acquired bacteria PNA: CT Abd/Pelvis w/ consolidative changes bilateral bases, continue with Cefepime/Zithro 3. Liver Transplant: h/o Liver Transplant 2001, on chronic immunosuppressant therapy w/ Prograf, continue with home medications and monitor level. Appreciate input from GI . Wait results of liver biopsy (01/08), slides sent to [facility] for review 4. Acute on chronic kidney disease stage III : caution w/ diuresis. Monitor BUN and creatinine 5. Hypomagnesemia: Mg 1.5 s/p replacements x 2 . 6. HTN: Continue home medications, monitor BP. 7. DM: Sliding scale w/ Accu-Cheks, Hgb A1c 7.3 8. DVT Prophylaxis: SCD/Teds. 9. Left upper quadrant pain:ultrasound spleen noted with finding of splenomegaly Medhat Bartlett MD January 26, 2017 10:55
--- NOTE | 2017-01-26 15:53 | HHI.GIFU ---
Subjective Remarks Sitting up in bed. Still having some shortness of breath, but improved from the weekend. No n/v. No abdominal pain. (Kenisha Lopez) Objective Vitals I&O Vital Signs Date Time Temp Pulse Resp B/P Pulse Ox O2 Delivery O2 Flow Rate FiO2 01/26/17 09:00 20 01/26/17 08:08 97 Nasal Cannula 2.00 01/26/17 08:03 51 01/26/17 08:00 98.2 53 20 174/76 97 01/26/17 04:00 98.2 53 18 154/72 96 01/26/17 00:36 97.6 54 18 170/80 100 01/25/17 20:57 98 Nasal Cannula 2.00 01/25/17 20:38 98.3 52 18 171/77 100 01/25/17 20:32 51 01/25/17 17:45 18 01/25/17 16:00 98.9 50 20 148/70 99 I/O 01/25/17 01/25/17 01/25/17 01/26/17 01/26/17 01/26/17 07:00 15:00 23:00 07:00 15:00 23:00 Intake Total 730 ml 6 ml 6 ml Output Total 900 ml 500 ml 250 ml Balance -170 ml -494 ml -244 ml Intake Oral 730 ml IV Total 6 ml 6 ml Output Urine Total 900 ml 500 ml 250 ml # Bowel Movements 0 0 0 Laboratory Laboratory Tests Test 01/26/17 07:05 Sodium Level 138 Potassium Level 4.5 Chloride Level 105 Carbon Dioxide Level 27.9 Anion Gap 5 Blood Urea Nitrogen 27 Creatinine 1.71 Estimat Glomerular Filtration 40 Rate Random Glucose 118 Calcium Level 8.3 Date/Time Procedure Status Source Growth 01/22/17 19:55 Aerobic Blood Culture - Preliminary Resulted Blood Line NO GROWTH IN 4 DAYS 01/22/17 19:55 Anaerobic Blood Culture - Preliminary Resulted Blood Line NO GROWTH IN 4 DAYS Imaging Last Impressions Spleen Ultrasound 01/25/17 0000 Signed Impressions: Service Date/Time: Wednesday, January 25, 2017 09:00 - CONCLUSION: 1. Mild enlargement of the spleen. 2. Left pleural effusion. Casimiro Goss MD Chest Ultrasound 01/25/17 0000 Signed Impressions: Service Date/Time: Wednesday, January 25, 2017 14:18 - CONCLUSION: Pleural effusion as described above Joni Goss MD FACR Chest X-Ray 01/22/171849 Signed Impressions: Service Date/Time: Sunday, January 22, 2017 19:17 - CONCLUSION: Edema and bilateral effusions. Vin Perez MD Abdomen/Pelvis CT 01/22/171849 Signed Impressions: Service Date/Time: Sunday, January 22, 2017 20:27 - CONCLUSION: Effusions and consolidative changes in the lung bases. Abnormal liver appearance splenomegaly and ascites. Vin Perez MD Physical Exam HEENT: Normocephalic; atraumatic; no jaundice. CHEST: Resp even/mildly labored, diminished. CARDIAC: RRR ABDOMEN: Soft, nondistended, nontender; hepatosplenomegaly; bowel sounds are present in all four quadrants. EXTREMITIES: No clubbing, cyanosis, or edema. SKIN: Normal; no rash; no jaundice. 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 He has not followed up with [facility] in 5-10 years because of financial reasons, but states his insurance coverage has changed and he would now [facility]. However, he does state that he has an outstanding balance from 2007 and is unsure if they will accept him. Abdomen/Pelvis CT (01/22/17)----> Effusions and consolidative changes in the lung bases. Abnormal liver appearance splenomegaly and ascites. OUTPT RECORDS: US Liver (01/01/17)---> cirrhotic changes in the liver. There is also enlargement of the spleen which could be seen with portal hypertension, ascites is seen in the right upper abdomen, bilateral pleural effusions, increased echogenicity to the right kidney which could suggest medical renal disease. 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 He had worsening LFTs and therefore Liver biopsy (01/08/17) was done at this facility- pending. The slides were sent to [facility] for review and they expect these back on Wednesday. He was last seen by Dr. Mallory in office on (01/18/17), at which time a referral to [facility] liver service was placed. The patient and his would prefer this to go to [place] if possible. Prograf. MELD 11. - Anemia. 9/0/26.9. EGD/Colonoscopy (10/30/16)----> gastritis was found in the gastric antrum, sessile polyp ranging between 3-5 mm in size was found in the gastric antrum; biopsy was performed retroflexed views revealed no abnormalities; normal colonoscopy, retroflex views revealed internal grade 2 hemorrhoids, digital rectal exam was performed and revealed medium external hemorrhoids. Recommended follow-up in 6 months. Pathology revealed a hyperplastic polyp in the antrum of the stomach, negative for Helicobacter pylori by GMS. - Ascites. Lasix. - Thrombocytopenia. Plt 155. No active bleeding. - GERD. PPI. - CHF Exacerbation. Lasix, per primary - Community acquired pneumonia. Cefepime, Zithromax, per primary. - RAN. Creat 1.71 - Anxiety, Depression, HTN, PVD, DM, Hyperlipidemia, Vitamin D Deficiency. Per primary. PLAN: - Low salt diet - Cont. Prograf - Cont. PPI - Cont. Lasix - Monitor labs - Supportive care - Wait results of liver biopsy (01/08), slides sent to [place] for review - Further recommendations to follow based on results of above - PT seen and examined by Dr. Tate and myself and this note is written on his behalf (Kenisha Lopez) Kenisha Lopez January 26, 2017 15:53 Jasbir Tate MD January 26, 2017 18:19
[2017-01-26] MEDS: AZITHROMYCIN 250 MG TAB PO SCH (20:47)
[2017-01-26] MEDS: ATORVASTATIN 40 MG TAB PO SCH ×2 (20:47→20:51)
[2017-01-26] MEDS: TAMSULOSIN HCL 0.4 MG CAP PO SCH (20:48)
[2017-01-26] MEDS: FINASTERIDE 5 MG TAB PO SCH (20:48)
[2017-01-27] VITALS (11 sets, daily range): BP systolic 103–157; BP diastolic 54–77; PULSE 48–85; RESP 16–20; TEMP 97.4–98.2; O2SAT 94–100
[2017-01-27] MEDS: MORPHINE SULFATE 4 MG/ML INJ IV PRN ×5 (01:12→21:33)
[2017-01-27] MEDS: INSULIN ASPART SUPPLEMENTAL SCALE SQ SCH ×4 (05:17→21:00)
[2017-01-27] MEDS: PANTOPRAZOLE SOD 20 MG DELAYED RELEASE TAB PO SCH (08:00)
[2017-01-27] MEDS: SODIUM CHLORIDE 0.9% FLUSH 10 ML FLUSH IV FLUSH SCH ×2 (08:23→21:28)
[2017-01-27] MEDS: FUROSEMIDE 20 MG/2 ML VIAL IV PUSH SCH ×2 (08:23→18:00)
[2017-01-27] MEDS: CEFEPIME INJ 1,000 MG in SODIUM CHLORIDE 0.9% INJ 100 ML IV SCH ×2 (08:23→21:19)
[2017-01-27] MEDS: FOLIC ACID 1 MG TAB PO SCH ×2 (08:24→21:22)
[2017-01-27] MEDS: MAGNESIUM OXIDE 400 MG TAB PO SCH (08:24)
[2017-01-27] MEDS: amLODIPine BESYLATE 5 MG TAB PO SCH ×2 (08:24→08:27)
[2017-01-27] MEDS: ASPIRIN EC 81 MG TABEC PO SCH (08:24)
[2017-01-27] MEDS: SOTALOL HCL 80 MG TAB PO SCH ×2 (08:24→21:28)
[2017-01-27] MEDS: TACROLIMUS 1 MG CAP PO SCH ×2 (08:24→21:22)
[2017-01-27] MEDS: POTASSIUM CHLORIDE 20 MEQ CONTROLLED RELEASE TAB PO SCH (08:24)
[2017-01-27] MEDS: BISACODYL 10 MG SUPP RECTAL PRN (08:49)
[2017-01-27] MEDS: RESP: ALBUTEROL 2.5 MG/IPRATROPIUM 0.5 MG NEB (SCH) NEB ×2 (09:17→13:11)
--- NOTE | 2017-01-27 12:39 | PD.AMA ---
Against Medical Advice Note Discharge Disposition: Against Medical Advice AMA Statement Patient Juan Daniel St has decided to leave the hospital against medical advice. This patient has the capacity to refuse care and understands the risks of leaving, including permanent disability and/or , and has had an opportunity to ask questions about his condition. The patient has been informed that he may return for care at any time, and follow up has been arranged/ advised. Medhat Bartlett MD January 27, 2017 12:39
[2017-01-27] MEDS: ONDANSETRON HCL 4 MG/2 ML VIAL IVP PRN (13:31)
--- NOTE | 2017-01-27 14:06 | HHI.PR ---
Subjective Remarks Follow-up CHF exacerbation/community-acquired bacterial pneumonia 01/23/17-patient seen and examined, reports some improvement of shortness of breath and denies any chest pain. Currently afebrile 01/24/17-patient seen and examined; denies any chest pain and reports some improvement of bilateral was community swelling as well as shortness of breath. 01/25/17-patient seen and examined, still complained of left upper quadrant pain or denies any significant shortness of breath or chest pain. 01/26/17-patient seen and examined, reports some improvement or shortness of breath as well as lower extremity swelling. Complains of nausea but no emesis. Still has some left lower quadrant abdominal pain. 01/27/17-patient seen and examined; patient states he hasn't been eating due to abdominal pain; Reports some improvement of shortness of breath. by the bedside Objective Vitals Vital Signs Date Time Temp Pulse Resp B/P Pulse Ox O2 Delivery O2 Flow Rate FiO2 01/27/17 12:00 98.0 50 20 157/77 100 01/27/17 10:57 49 01/27/17 09:21 98 Nasal Cannula 2.00 01/27/17 08:00 98.2 48 18 134/64 100 01/27/17 04:00 97.4 85 18 103/54 99 01/27/17 00:00 97.8 50 18 145/72 98 01/26/17 20:00 98.1 55 18 150/74 97 01/26/17 19:07 96 Nasal Cannula 2.00 01/26/17 16:00 97.5 51 20 113/56 96 01/26/17 14:21 20 I/O 01/26/17 01/26/17 01/26/17 01/27/17 01/27/17 01/27/17 07:00 15:00 23:00 07:00 15:00 23:00 Intake Total 6 ml 360 ml 350 ml 246 ml Output Total 250 ml 300 ml 600 ml 400 ml Balance -244 ml 60 ml -250 ml -154 ml Intake Oral 360 ml 240 ml 240 ml IV Total 6 ml 110 ml 6 ml Output Urine Total 250 ml 300 ml 600 ml 400 ml # Bowel Movements 0 1 0 0 Result Diagram: 01/24/17 0844 01/26/17 0705 Imaging Last Impressions Spleen Ultrasound 01/25/17 0000 Signed Impressions: Service Date/Time: Wednesday, January 25, 2017 09:00 - CONCLUSION: 1. Mild enlargement of the spleen. 2. Left pleural effusion. Casimiro Goss MD Chest Ultrasound 01/25/17 0000 Signed Impressions: Service Date/Time: Wednesday, January 25, 2017 14:18 - CONCLUSION: Pleural effusion as described above Joni Goss MD FACR Chest X-Ray 01/22/171849 Signed Impressions: Service Date/Time: Sunday, January 22, 2017 19:17 - CONCLUSION: Edema and bilateral effusions. Vin Perez MD Abdomen/Pelvis CT 01/22/171849 Signed Impressions: Service Date/Time: Sunday, January 22, 2017 20:27 - CONCLUSION: Effusions and consolidative changes in the lung bases. Abnormal liver appearance splenomegaly and ascites. Vin Perez MD Objective Remarks GENERAL: SKIN: Warm and dry. HEAD: Normocephalic. EYES: No scleral icterus. No injection or drainage. NECK: Supple, trachea midline. No JVD or lymphadenopathy. CARDIOVASCULAR: Regular rate and rhythm without murmurs, gallops, or rubs. RESPIRATORY: Breath sounds decrease bilaterally. No accessory muscle use. GASTROINTESTINAL: Abdomen soft, tender TP LUQ, nondistended. MUSCULOSKELETAL: No cyanosis, +trace BLE edema. BACK: Nontender without obvious deformity. No CVA tenderness. A/P Problem List: (1) CHF (congestive heart failure) ICD Code: I50.9 Status: Acute (2) Liver transplant recipient ICD Code: Z94.4 Status: Acute (3) Renal insufficiency ICD Code: N28.9 Status: Acute (4) Hypomagnesemia ICD Code: E83.42 Status: Acute (5) HTN (hypertension) ICD Code: I10 Status: Acute (6) DM (diabetes mellitus) ICD Code: E11.9 Status: Chronic (7) Community acquired bacterial pneumonia ICD Code: J15.9 Status: Acute Assessment and Plan 66-year-old man with 1. CHF: Acute on Chronic. Diastolic. Echo 07/16/16 w/ EF 50-55%, BNP 492, CXR w/ bilateral effusions, improving and continue with Lasix IV and caution w/ renal insufficiency.Will need need to switch to PO Lasix 01/28/17. Continue Potassium supplement daily 20 mEq. Monitor I/O. 2-D echo with EF 60-65% 2. Community-acquired bacteria PNA: CT Abd/Pelvis w/ consolidative changes bilateral bases, continue with Cefepime/Zithro 3. Liver Transplant: h/o Liver Transplant 2001, on chronic immunosuppressant therapy w/ Prograf, continue with home medications and monitor level. Appreciate input from GI . Waiting for results of liver biopsy (01/08), slides sent to [facility] for review 4. Acute on chronic kidney disease stage III : caution w/ diuresis. Monitor BUN and creatinine 5. Hypomagnesemia: Mg 1.5 s/p replacements x 2 . 6. HTN: Continue home medications, monitor BP. 7. DM: Sliding scale w/ Accu-Cheks, Hgb A1c 7.3 8. DVT Prophylaxis: SCD/Teds. 9. Left upper quadrant pain:ultrasound spleen noted with finding of splenomegaly 10. Abdominal pain: r/o Ischemic bowel vs constipation vs other Abd/pelvic MRA/MRI ACS R/O GI ff Medhat Barltett MD January 27, 2017 14:06
--- NOTE | 2017-01-27 17:00 | HHI.GIFU ---
Subjective Remarks Resting in bed. Breathing slightly improved. C/O soreness "where my spleen is. " at bedside. Awaiting liver biopsy results. Called pathology and they state that this did return from [place], but they are waiting for the pathologist to sign off on and once he does, they will scan it into the system. Objective Vitals I&O Vital Signs Date Time Temp Pulse Resp B/P Pulse Ox O2 Delivery O2 Flow Rate FiO2 01/27/17 12:00 98.0 50 20 157/77 100 01/27/17 10:57 49 01/27/17 09:21 98 Nasal Cannula 2.00 01/27/17 08:00 98.2 48 18 134/64 100 01/27/17 04:00 97.4 85 18 103/54 99 01/27/17 00:00 97.8 50 18 145/72 98 01/26/17 20:00 98.1 55 18 150/74 97 01/26/17 19:07 96 Nasal Cannula 2.00 I/O 01/26/17 01/26/17 01/26/17 01/27/17 01/27/17 01/27/17 07:00 15:00 23:00 07:00 15:00 23:00 Intake Total 6 ml 360 ml 350 ml 246 ml Output Total 250 ml 300 ml 600 ml 400 ml Balance -244 ml 60 ml -250 ml -154 ml Intake Oral 360 ml 240 ml 240 ml IV Total 6 ml 110 ml 6 ml Output Urine Total 250 ml 300 ml 600 ml 400 ml # Bowel Movements 0 1 0 0 Laboratory Date/Time Procedure Status Source Growth 01/22/17 19:55 Aerobic Blood Culture - Final Complete Blood Line NO GROWTH IN 5 DAYS 01/22/17 19:55 Anaerobic Blood Culture - Final Complete Blood Line NO GROWTH IN 5 DAYS Imaging Last Impressions Spleen Ultrasound 01/25/17 0000 Signed Impressions: Service Date/Time: Wednesday, January 25, 2017 09:00 - CONCLUSION: 1. Mild enlargement of the spleen. 2. Left pleural effusion. Casimiro Goss MD Chest Ultrasound 01/25/17 0000 Signed Impressions: Service Date/Time: Wednesday, January 25, 2017 14:18 - CONCLUSION: Pleural effusion as described above Joni Goss MD FACR Chest X-Ray 01/22/17 1850 Signed Impressions: Service Date/Time: Sunday, January 22, 2017 19:17 - CONCLUSION: Edema and bilateral effusions. Vin Perez MD Abdomen/Pelvis CT 01/22/17 1850 Signed Impressions: Service Date/Time: Sunday, January 22, 2017 20:27 - CONCLUSION: Effusions and consolidative changes in the lung bases. Abnormal liver appearance splenomegaly and ascites. Vin Perez MD Physical Exam HEENT: Normocephalic; atraumatic; no jaundice. CHEST: Resp even/mildly labored, diminished. CARDIAC: RRR ABDOMEN: Soft, nondistended, nontender; hepatosplenomegaly; bowel sounds are present in all four quadrants. EXTREMITIES: No clubbing, cyanosis, or edema. SKIN: Normal; no rash; no jaundice. PNEUMATIC TUBE REPAIRER: No focal deficits; alert and oriented times three. 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 He has not followed up with [facility] in 5-10 years because of financial reasons, but states his insurance coverage has changed and [facility] now [facility] However, he does state that he has an outstanding balance from 2007 and is unsure if they will accept him. Abdomen/Pelvis CT (01/22/17)----> Effusions and consolidative changes in the lung bases. Abnormal liver appearance splenomegaly and ascites. OUTPT RECORDS: US Liver (01/01/17)---> cirrhotic changes in the liver. There is also enlargement of the spleen which could be seen with portal hypertension, ascites is seen in the right upper abdomen, bilateral pleural effusions, increased echogenicity to the right kidney which could suggest medical renal disease. 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 He had worsening LFTs and therefore Liver biopsy (01/08/17) was done at this facility- pending. The slides were sent to [facility] for review and they expect these back on Wednesday. Called pathology and they state that this did return from [place], but they are waiting for the pathologist to sign off on and once he does, they will scan it into the system.He was last seen by Dr. Mallory in office on (01/18/17), at which time a referral to [facility] liver service was placed. The patient and his would prefer this to go to [place] if possible. Prograf. MELD 11. - Anemia. EGD/Colonoscopy (10/30/16)----> gastritis was found in the gastric antrum, sessile polyp ranging between 3-5 mm in size was found in the gastric antrum; biopsy was performed retroflexed views revealed no abnormalities; normal colonoscopy, retroflex views revealed internal grade 2 hemorrhoids, digital rectal exam was performed and revealed medium external hemorrhoids. Recommended follow-up in 6 months. Pathology revealed a hyperplastic polyp in the antrum of the stomach, negative for Helicobacter pylori by GMS. No active bleeding. - Ascites. Lasix. - Thrombocytopenia. Plt 155. No active bleeding. - GERD. PPI. - CHF Exacerbation. Lasix, per primary - Community acquired pneumonia. Abx per primary. - RAN. Creat 1.71 - Anxiety, Depression, HTN, PVD, DM, Hyperlipidemia, Vitamin D Deficiency. Per primary. PLAN: - Low salt diet - Cont. Prograf - Cont. PPI - Cont. Lasix - Prograf level - Await liver biopsy (01/08), returned from [place] today, not signed off on yet. - Further recommendations to follow based on results of above - PT seen and examined by Dr. Tate and myself and this note is written on his behalf Kenisha Lopez January 27, 2017 16:59
[2017-01-27] MEDS ORDERED: MAGNESIUM CITRATE SOLN 300 ML BTL PO ONE (17:30)
[2017-01-27] MEDS: ATORVASTATIN 40 MG TAB PO SCH (21:00)
[2017-01-27] MEDS: FINASTERIDE 5 MG TAB PO SCH (21:21)
[2017-01-27] MEDS: TAMSULOSIN HCL 0.4 MG CAP PO SCH (21:21)
[2017-01-27] MEDS: AZITHROMYCIN 250 MG TAB PO SCH (21:22)
[2017-01-27 23:45] LABS: BICARBONATE 29.7 MEQ/L (21.0-32.0); MAGNESIUM 1.9 MG/DL (1.5-2.5); POTASSIUM 5.1 MEQ/L (3.5-5.1)
[2017-01-28] VITALS (8 sets, daily range): BP systolic 121–168; BP diastolic 57–80; PULSE 52–56; RESP 16–20; TEMP 97.7–98.3; O2SAT 94–99
[2017-01-28] MEDS: MORPHINE SULFATE 4 MG/ML INJ IV PRN ×5 (00:29→21:14)
[2017-01-28] MEDS: ONDANSETRON HCL 4 MG/2 ML VIAL IVP PRN ×4 (03:47→21:15)
[2017-01-28 05:59] LABS: BICARBONATE 29.9 MEQ/L (21.0-32.0); POTASSIUM 5.1 MEQ/L (3.5-5.1)
[2017-01-28] MEDS: INSULIN ASPART SUPPLEMENTAL SCALE SQ SCH ×4 (06:12→21:07)
[2017-01-28] MEDS: ASPIRIN EC 81 MG TABEC PO SCH (08:18)
[2017-01-28] MEDS: FOLIC ACID 1 MG TAB PO SCH ×2 (08:18→21:13)
[2017-01-28] MEDS: PANTOPRAZOLE SOD 20 MG DELAYED RELEASE TAB PO SCH (08:18)
[2017-01-28] MEDS: amLODIPine BESYLATE 5 MG TAB PO SCH (08:18)
[2017-01-28] MEDS: CEFEPIME INJ 1,000 MG in SODIUM CHLORIDE 0.9% INJ 100 ML IV SCH ×2 (08:19→21:14)
[2017-01-28] MEDS: SODIUM CHLORIDE 0.9% FLUSH 10 ML FLUSH IV FLUSH SCH ×2 (08:19→21:14)
[2017-01-28] MEDS: MAGNESIUM OXIDE 400 MG TAB PO SCH (08:19)
[2017-01-28] MEDS: FUROSEMIDE 20 MG/2 ML VIAL IV PUSH SCH ×2 (08:19→17:53)
[2017-01-28] MEDS: POTASSIUM CHLORIDE 20 MEQ CONTROLLED RELEASE TAB PO SCH (08:19)
[2017-01-28] MEDS: TACROLIMUS 1 MG CAP PO SCH ×2 (08:20→22:05)
[2017-01-28] MEDS: SOTALOL HCL 80 MG TAB PO SCH (08:21)
--- NOTE | 2017-01-28 12:17 | HHI.GIFU ---
Subjective Remarks Resting in bed. Breathing better. Mild luq tenderness. Call out to [facility], Tiana Lo, to d/w liver biopsy, further recommendations, and to establish FU as outpatient. Objective Vitals I&O Vital Signs Date Time Temp Pulse Resp B/P Pulse Ox O2 Delivery O2 Flow Rate FiO2 01/28/17 08:00 98.3 56 20 165/79 99 01/28/17 04:00 97.9 54 16 149/73 94 01/28/17 00:00 98.0 56 16 168/80 95 01/27/17 20:39 94 Nasal Cannula 2.00 01/27/17 20:20 50 01/27/17 20:00 98.1 53 16 151/70 94 01/27/17 18:00 52 18 157/74 94 01/27/17 16:00 97.8 53 20 136/72 96 I/O 01/27/17 01/27/17 01/27/17 01/28/17 01/28/17 01/28/17 07:00 15:00 23:00 07:00 15:00 23:00 Intake Total 246 ml 360 ml 240 ml Output Total 400 ml 150 ml 800 ml Balance -154 ml 210 ml -560 ml Intake Oral 240 ml 360 ml 240 ml IV Total 6 ml Output Urine Total 400 ml 150 ml 800 ml # Bowel Movements 0 0 Laboratory Laboratory Tests Test 01/27/17 01/28/17 22:52 05:18 Sodium Level 138 139 Potassium Level 5.1 5.1 Chloride Level 102 105 Carbon Dioxide Level 29.7 29.9 Anion Gap 6 4 Blood Urea Nitrogen 29 30 Creatinine 1.89 1.80 Estimat Glomerular Filtration 36 38 Rate Random Glucose 156 140 Calcium Level 8.5 8.9 Magnesium Level 1.9 Imaging Last Impressions Spleen Ultrasound 01/25/17 0000 Signed Impressions: Service Date/Time: Wednesday, January 25, 2017 09:00 - CONCLUSION: 1. Mild enlargement of the spleen. 2. Left pleural effusion. Casimiro Goss MD Chest Ultrasound 01/25/17 0000 Signed Impressions: Service Date/Time: Wednesday, January 25, 2017 14:18 - CONCLUSION: Pleural effusion as described above Joni Goss MD FACR Chest X-Ray 01/22/17 1850 Signed Impressions: Service Date/Time: Sunday, January 22, 2017 19:17 - CONCLUSION: Edema and bilateral effusions. Vin Perez MD Abdomen/Pelvis CT 01/22/17 1850 Signed Impressions: Service Date/Time: Sunday, January 22, 2017 20:27 - CONCLUSION: Effusions and consolidative changes in the lung bases. Abnormal liver appearance splenomegaly and ascites. Vin Perez MD Physical Exam HEENT: Normocephalic; atraumatic CHEST: Resp even/mildly labored, diminished. CARDIAC: RRR ABDOMEN: Soft, nondistended, nontender; hepatosplenomegaly; bowel sounds are present in all four quadrants. EXTREMITIES: No clubbing, cyanosis, or edema. SKIN: Normal; no rash; no jaundice. PAIL BAILER: No focal deficits; alert and oriented times three. Assessment and Plan Plan ASSESSMENT: - Liver cirrhosis, with hx of orthotopic liver transplant for liver cirrhosis secondary to primary sclerosing cholangitis in [address] [facility] in [place] and current liver cirrhosis and thrombocytopenia. He has not followed up with [facility] in 5-10 years because of financial reasons, but states his insurance coverage has changed and he [facility] now [facility]. However, he does state that he has an outstanding balance from 2007 and is unsure if they will accept him. Abdomen/Pelvis CT (01/22/17)----> Effusions and consolidative changes in the lung bases. Abnormal liver appearance splenomegaly and ascites. OUTPT RECORDS: US Liver (01/01/17)---> cirrhotic changes in the liver. There is also enlargement of the spleen which could be seen with portal hypertension, ascites is seen in the right upper abdomen, bilateral pleural effusions, increased echogenicity to the right kidney which could suggest medical renal disease. 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 ? Chronic rejection/autoimmune hepatitis. BILLY, ASMA, IgG pending. Call placed to [facility], Tiana Lo (housing coordinator) . Message left for her to return call to discuss liver biopsy, further recommendations, and to establish follow up with patient. Prograf. MELD 11. - Anemia. EGD/Colonoscopy (10/30/16)----> gastritis was found in the gastric antrum, sessile polyp ranging between 3-5 mm in size was found in the gastric antrum; biopsy was performed retroflexed views revealed no abnormalities; normal colonoscopy, retroflex views revealed internal grade 2 hemorrhoids, digital rectal exam was performed and revealed medium external hemorrhoids. Recommended follow-up in 6 months. Pathology revealed a hyperplastic polyp in the antrum of the stomach, negative for Helicobacter pylori by GMS. No active bleeding. 9.0/26.9. - Ascites. Lasix. - Thrombocytopenia. Plt 155. No active bleeding. - GERD. PPI. - CHF Exacerbation. Lasix, per primary - Community acquired pneumonia. Abx per primary. - RAN, Anxiety, Depression, HTN, PVD, DM, Hyperlipidemia, Vitamin D Deficiency. Per primary. PLAN: - Low salt diet - Cont. Prograf - Cont. PPI - Cont. Lasix - Prograf level - IgG level - BILLY - ASMA - Await call back from [facility] Tiana Lo, - Further recommendations to follow based on results of above - PT seen and examined by Dr. Tate and myself and this note is written on his behalf Kenisha Lopez January 28, 2017 12:17
--- NOTE | 2017-01-28 13:39 | EKG ---
Date Performed: 01/27/2017 Time Performed: 18:08:56 PTAGE: 66 years EKG: Possible ectopic atrial bradycardia. Prolonged QT interval Left axis deviation Inferior inf arct - age undetermined Possible anteroseptal infarct - age undetermined Lateral ST-T changes may be due to myocardial ischemia Compared to prior tracing no significant change Abnormal ECG PREVIOUS TRACING : 01/22/2017 22.14 DOCTOR: Rubén Andrews Interpretating Date/Time 01/28/2017 13:37:34
--- NOTE | 2017-01-28 20:31 | HHI.PR ---
Subjective Remarks Patient c/o left upper quadrant pain when he eats c/o decreased appetite denies cp/sob denies fevers or chills denies nausea or vomiting. Objective Vitals Vital Signs Date Time Temp Pulse Resp B/P Pulse Ox O2 Delivery O2 Flow Rate FiO2 01/28/17 16:00 98.1 53 20 148/73 99 01/28/17 12:07 52 01/28/17 12:00 97.7 54 18 121/57 99 01/28/17 08:00 98.3 56 20 165/79 99 01/28/17 04:00 97.9 54 16 149/73 94 01/28/17 00:00 98.0 56 16 168/80 95 01/27/17 20:39 94 Nasal Cannula 2.00 01/27/17 20:20 50 01/27/17 20:00 98.1 53 16 151/70 94 I/O 01/27/17 01/27/17 01/27/17 01/28/17 01/28/17 01/28/17 07:00 15:00 23:00 07:00 15:00 23:00 Intake Total 246 ml 360 ml 240 ml 480 ml Output Total 400 ml 150 ml 800 ml 500 ml Balance -154 ml 210 ml -560 ml -20 ml Intake Oral 240 ml 360 ml 240 ml 480 ml IV Total 6 ml Output Urine Total 400 ml 150 ml 800 ml 500 ml # Bowel Movements 0 0 0 Result Diagram: 01/24/17 0844 01/28/17 0518 Imaging Last Impressions Spleen Ultrasound 01/25/17 0000 Signed Impressions: Service Date/Time: Wednesday, January 25, 2017 09:00 - CONCLUSION: 1. Mild enlargement of the spleen. 2. Left pleural effusion. Casimiro Goss MD Chest Ultrasound 01/25/17 0000 Signed Impressions: Service Date/Time: Wednesday, January 25, 2017 14:18 - CONCLUSION: Pleural effusion as described above Joni Goss MD FACR Chest X-Ray 01/22/171849 Signed Impressions: Service Date/Time: Sunday, January 22, 2017 19:17 - CONCLUSION: Edema and bilateral effusions. Vin Perez MD Abdomen/Pelvis CT 01/22/171849 Signed Impressions: Service Date/Time: Sunday, January 22, 2017 20:27 - CONCLUSION: Effusions and consolidative changes in the lung bases. Abnormal liver appearance splenomegaly and ascites. Vin Perez MD Objective Remarks GENERAL: AAOx3, NAD. Sitting in commode. SKIN: Warm and dry. HEAD: Normocephalic. EYES: No scleral icterus. No injection or drainage. NECK: Supple, trachea midline. No JVD or lymphadenopathy. CARDIOVASCULAR: Regular rate and rhythm without murmurs, gallops, or rubs. RESPIRATORY: Breath sounds decrease bilaterally. No accessory muscle use. GASTROINTESTINAL: Abdomen soft, tender TP LUQ, nondistended. MUSCULOSKELETAL: No cyanosis, +trace BLE edema. BACK: Nontender without obvious deformity. No CVA tenderness. Procedures sp Liver biopsy. Medications and IVs Current Medications Medications (Trade) Dose Ordered Sig/Herb Route Start Time Stop Time Status Last Admin (D50w (Vial) Inj) 25 ml UNSCH PRN IV PUSH 01/22/17 21:30 Glucagon 1 mg 1 mg UNSCH PRN OTHER 01/22/17 21:30 (Maxipime Inj/NS Inj) 100 ml @ 200 mls/hr Q12H IV 01/23/17 09:00 01/28/17 08:19 (NS Flush) 2 ml UNSCH PRN IV FLUSH 01/22/17 21:30 01/25/17 18:36 (NS Flush) 2 ml BID IV FLUSH 01/23/17 09:00 01/28/17 08:19 (Zofran Inj) 4 mg Q6H PRN IVP 01/22/17 21:30 01/28/17 14:43 (Dulcolax Supp) 10 mg DAILY PRN RECTAL 01/22/17 21:30 01/27/17 08:49 (Tylenol) 650 mg Q6H PRN PO 01/22/17 21:30 01/23/17 11:11 (Morphine Inj) 2 mg Q3H PRN IV 01/22/17 21:30 01/28/17 17:53 (Roxicodone) 5 mg Q4H PRN PO 01/22/17 21:30 01/28/17 10:55 (Lasix Inj) 20 mg BID@09,18 IV PUSH 01/23/17 09:00 01/28/17 17:53 (Ecotrin Ec) 81 mg DAILY PO 01/23/17 09:00 01/28/17 08:18 (Lipitor) 40 mg HS PO 01/23/17 21:00 01/24/17 21:09 (Proscar) 5 mg HS PO 01/23/17 21:00 01/27/17 21:21 (Folate) 1 mg BID PO 01/23/17 09:00 01/28/17 08:18 (Betapace) 120 mg Q12HR PO 01/23/17 09:00 01/27/17 21:28 (Mag-Ox) 400 mg DAILY PO 01/23/17 09:00 01/28/17 08:19 (Protonix) 20 mg DAILYAC PO 01/23/17 08:00 01/28/17 08:18 (Flomax) 0.4 mg HS PO 01/22/17 21:45 01/27/17 21:21 (Ambien) 10 mg HS PRN PO 01/22/17 21:45 (Zithromax) 500 mg Q24H PO 01/23/17 21:00 01/27/17 21:22 (KCl) 20 meq DAILY PO 01/24/17 09:00 01/28/17 08:19 (Prograf) 2 mg BID PO 01/24/17 21:00 01/28/17 08:20 (Norvasc) 5 mg DAILY PO 01/26/17 09:00 01/28/17 08:18 A/P Problem List: (1) Acute on chronic diastolic (congestive) heart failure ICD Code: I50.33 Status: Acute Plan: Echo on 07/26/16 showed an ejection fraction of 50-55%, BNP 492, chest x- ray with bilateral pleural effusions, treated with Lasix IV. Patient then switched from IV to by mouth Lasix on a 2016. Continue potassium supplement daily 20 mEq. Monitor strict I's and O's, to the echo with EF 60-65%. Hold Lasix given worsening creatinine and contraction alkalosis. (2) Liver transplant recipient ICD Code: Z94.4 Status: Acute Plan: Liver cirrhosis, with hx of orthotopic liver transplant for liver cirrhosis secondary to primary sclerosing cholangitis in 2001 at the [facility] in [place] and current liver cirrhosis and thrombocytopenia. He has not followed up with [facility] in 5-10 years because of financial reasons, but states his insurance coverage has changed and he would now [facility]. Patient on chronic immunosuppressant therapy with Prograf. Home medications were continued throughout hospital stay. GI consulted. Appreciate recommendations. 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 ? Chronic rejection/autoimmune hepatitis. BILLY, ASMA, IgG pending. Follow-up GI recommendations. GI has placed a call to [facility] to discuss your biopsy findings and further management. (3) Renal insufficiency ICD Code: N28.9 Status: Acute Plan: Acute on chronic kidney disease stage III. BUN/creatinine worsening, I will hold diuretics for now. Continue to monitor BUN/creatinine, strict I's and O's. (4) Hypomagnesemia ICD Code: E83.42 Status: Resolved Plan: Magnesium 1.5 status post replacements 2. Patient now with normal magnesium levels. Continue to monitor magnesium. (5) HTN (hypertension) ICD Code: I10 Status: Acute Plan: Blood pressure seems to be stable. Continue antihypertensive medications. (6) DM (diabetes mellitus) ICD Code: E11.9 Status: Chronic Plan: : A1c 7.3. Diabetes mellitus. Well controlled. Continue SSI with insulin NovoLog and continue to monitor Accu-Cheks. Blood sugars have been stable. Continue to hold home insulin. (7) Community acquired bacterial pneumonia ICD Code: J15.9 Status: Acute Plan: CT abdomen and pelvis showed consolidative changes bilateral bases. Continue cefepime and azithromycin. (8) Decreased appetite ICD Code: R63.0 Status: Acute Plan: Likely secondary to hepatitis and liver cirrhosis. Consult dietitian. (9) QT prolongation ICD Code: R94.31 Status: Acute Plan: EKG obtained on 01/28/17 and reviewed by me showed ectopic atrial bradycardia with Q-t prolongation with a QTC of 528. I will discontinue sotalol and azithromycin which both can prolong QT. I will consult cardiology. The patient follows up with Dr. Lovell. will check and EKG STAT. Problem Qualifiers (1) HTN (hypertension): Qualified Code: I10 - Essential hypertension (2) DM (diabetes mellitus): Qualified Code: E11.8 - Type 2 diabetes mellitus with complication, with long- term current use of insulin Reji Garrison MD January 28, 2017 20:31
[2017-01-28] MEDS: FINASTERIDE 5 MG TAB PO SCH (21:00)
[2017-01-28] MEDS ORDERED: SOTALOL HCL 80 MG TAB PO SCH (21:00)
[2017-01-28] MEDS: ATORVASTATIN 40 MG TAB PO SCH (21:13)
[2017-01-28] MEDS: TAMSULOSIN HCL 0.4 MG CAP PO SCH (21:13)
[2017-01-29] VITALS (7 sets, daily range): BP systolic 116–160; BP diastolic 58–82; PULSE 53–59; RESP 16–20; TEMP 98–98.7; O2SAT 94–100
[2017-01-29] MEDS: MORPHINE SULFATE 4 MG/ML INJ IV PRN ×6 (00:25→21:09)
[2017-01-29] MEDS: SODIUM CHLORIDE 0.9% FLUSH 10 ML FLUSH IV FLUSH PRN ×2 (00:25→03:18)
[2017-01-29] MEDS: ONDANSETRON HCL 4 MG/2 ML VIAL IVP PRN ×2 (03:18→22:35)
[2017-01-29] MEDS: INSULIN ASPART SUPPLEMENTAL SCALE SQ SCH ×4 (06:34→21:00)
[2017-01-29] MEDS: POTASSIUM CHLORIDE 20 MEQ CONTROLLED RELEASE TAB PO SCH (08:12)
[2017-01-29] MEDS: amLODIPine BESYLATE 5 MG TAB PO SCH (08:12)
[2017-01-29] MEDS: ASPIRIN EC 81 MG TABEC PO SCH (08:12)
[2017-01-29] MEDS: PANTOPRAZOLE SOD 20 MG DELAYED RELEASE TAB PO SCH (08:12)
[2017-01-29] MEDS: FOLIC ACID 1 MG TAB PO SCH ×2 (08:12→21:15)
[2017-01-29] MEDS: SODIUM CHLORIDE 0.9% FLUSH 10 ML FLUSH IV FLUSH SCH ×2 (08:13→21:08)
[2017-01-29] MEDS: MAGNESIUM OXIDE 400 MG TAB PO SCH (08:13)
[2017-01-29] MEDS: CEFEPIME INJ 1,000 MG in SODIUM CHLORIDE 0.9% INJ 100 ML IV SCH ×2 (08:13→21:07)
[2017-01-29] MEDS: TACROLIMUS 1 MG CAP PO SCH ×2 (08:20→21:14)
--- NOTE | 2017-01-29 11:38 | MB ---
cc: SENIA ROBERTO DATE OF CONSULTATION 01/29/2017 DATE OF 1950 REASON FOR CONSULTATION Prolonged QTC HISTORY OF PRESENT ILLNESS 66-year-old male with a past medical history significant for orthotopic liver transplant secondary to primary sclerosing cholangitis done in 2001, anemia, thrombocytopenia, atrial fibrillation status post ablation, hypertension, and diabetes who was admitted to the hospital with anasarca, found to be in hepatorenal syndrome. Also, had a transplant of liver rejection. He has been followed by GI. Cardiology has been consulted because of prolonged QTC on the EKG. No cardiovascular complaints. He has had one episode of a nonsustained VT asymptomatic in the telemetry. Echocardiogram done here shows a normal LV systolic function with estimated ejection fractions of 60% and no wall motion abnormalities. REVIEW OF SYSTEMS Negative except for what is mentioned in the HPI. PAST MEDICAL HISTORY 1. Atrial fibrillation on Coumadin 2. Anxiety/depression 3. Anemia 4. Primary sclerosis cholangitis 5. Chronic kidney disease stage III 6. Type 2 diabetes 7. GERD 8. Hypertension 9. Peripheral vascular disease 10. Diabetes with ulcer 11. Hyperlipidemia 12. Status post liver transplant 13. 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 Polyneuropathy 15. Colitis 16. Vitamin D 17. Liver cirrhosis 18. PAST SURGICAL HISTORY 1. Colonoscopy 2. Liver transplant 3. Liver biopsy ALLERGIES NO KNOWN DRUG ALLERGIES. FAMILY HISTORY Noncontributory SOCIAL HISTORY Denies any alcohol. No tobacco or illicit drug use. PHYSICAL EXAMINATION VITAL SIGNS: Temperature 98, pulse 53, respiratory rate 18, blood pressure 150/ 76, O2 sat 100% on room air. GENERAL: Awake, alert and oriented x3 in no acute distress. NECK: No JVD or carotid bruits. HEART: Regular rate and rhythm. No murmurs, rubs or gallops. LUNGS: Clear to auscultation bilaterally. No wheezes, rhonchi or rales. ABDOMEN: Soft, nontender, mildly distended. EXTREMITIES: There is edema up to the thigh. DATA CBC hemoglobin 9, hematocrit 26, platelet count 155, INR 1.2. Electrolytes sodium 139, potassium 5.1, BUN 30, creatinine 1.8, calcium 8.9, magnesium 1.9. Urinalysis, protein in the urine, INR 1.2. ASSESSMENT/PLAN 56-year-old admitted with a hepatorenal syndrome, cirrhosis, liver transplant rejection, splenomegaly, ascites admitted with SOB and worsening edema. Recent Liver biopsy reported plasma cell hepatitis with moderate activity with areas of parenchymal collapse, question of chronic rejection/autoimmune hepatitis. The patient is scheduled to be transferred to either or [facility] for further management and evaluation. His MELD score per GI is 11. He remains afebrile and hemodynamically stable. He has no cardiovascular complaints. Past cardiac studies have been unremarkable. His EKG is sinus bradycardia with mild QT prolongation, there is no significant arrhythmias other than 1 episode of asymptomatic nonsustained VT. Recommendations: 1. Decrease Sotalol to 80mg PO BID 2. Avoid any QTC prolonging drugs. 3. Continue the IV diuresis with Lasix 4. Avoiding any electrolyte imbalances. 5. Continue telemetry monitoring 6. Follow up with Dr. Lovell upon discharge. Thank you for the opportunity to participate in the care of this patient I will be available on a p.r.n. basis for any other questions or concerns. MD TD Goyal/DONNA /11:01 AM /11:17 AM RODNEY
[2017-01-29 14:03] LABS: AUTOMATED NEUTROPHIL # 4.3 TH/MM3 (1.8-7.7); BASOPHIL % 0.3 % (0.0-2.0); EOSINOPHIL # 0.2 TH/MM3 (0-0.4); EOSINOPHIL % 3.2 % (0.0-4.0); HEMATOCRIT 29.1 % (39.0-51.0); HEMO FLAGS DIFF FINAL; LYMPH % 21.7 % (9.0-44.0); LYMPHOCYTE # 1.4 TH/MM3 (1.0-4.8); MEAN CELL VOLUME 85.2 FL (80.0-100.0); MEAN CORPUSCULAR HEMOGLOBIN 27.2 PG (27.0-34.0); MEAN CORPUSCULAR HGB CONC 31.9 % (32.0-36.0); NEUT % 65.8 % (16.0-70.0); PLATELET COUNT 134 TH/MM3 (150-450); RED BLOOD COUNT 3.42 MIL/MM3 (4.50-5.90); RED CELL DISTRIBUTION WIDTH 15.7 % (11.6-17.2); WHITE BLOOD COUNT 6.5 TH/MM3 (4.0-11.0)
[2017-01-29 14:24] LABS: ALT (GPT) 15 U/L (12-78); ANION GAP 2 MEQ/L (5-15); AST (GOT) 38 U/L (15-37); BICARBONATE 30.8 MEQ/L (21.0-32.0); BLOOD UREA NITROGEN 31 MG/DL (7-18); CHLORIDE 106 MEQ/L (98-107); GLOMERULAR FILTRATION RATE 37 ML/MIN (>89); MAGNESIUM 2.4 MG/DL (1.5-2.5); POTASSIUM 5.8 MEQ/L (3.5-5.1); SODIUM (NA) 139 MEQ/L (136-145)
[2017-01-29 14:27] LABS: ALKALINE PHOSPHATASE 132 U/L (45-117); TOTAL BILIRUBIN ADULT 0.6 MG/DL (0.2-1.0)
--- NOTE | 2017-01-29 18:42 | HHI.PR ---
Subjective Remarks deferred entry - patient seen at 3 pm patient c/o of Luq abdominal pain denies cp, c/o mild dyspnea especially on exertion stable vital signs Objective Vitals Vital Signs Date Time Temp Pulse Resp B/P Pulse Ox O2 Delivery O2 Flow Rate FiO2 01/29/17 16:00 98.7 55 18 155/74 100 01/29/17 15:27 18 01/29/17 12:00 98.0 56 18 152/75 99 01/29/17 08:15 Nasal Cannula 2.00 01/29/17 08:00 98.3 53 18 150/76 100 01/29/17 04:00 98.2 55 20 116/58 99 01/29/17 04:00 Nasal Cannula 2.00 01/29/17 00:00 Nasal Cannula 2.00 01/29/17 00:00 98.3 56 20 160/82 98 01/28/17 20:29 53 01/28/17 20:00 98.2 53 20 135/67 96 01/28/17 20:00 Nasal Cannula 2.00 I/O 01/28/17 01/28/17 01/28/17 01/29/17 01/29/17 01/29/17 07:00 15:00 23:00 07:00 15:00 23:00 Intake Total 480 ml 460 ml 240 ml 360 ml Output Total 500 ml 650 ml 400 ml Balance -20 ml 460 ml -410 ml -40 ml Intake Oral 480 ml 360 ml 240 ml 360 ml IV Total 100 ml Output Urine Total 500 ml 650 ml 400 ml # Voids 1 # Bowel Movements 0 1 0 0 Result Diagram: 01/29/17 1351 01/29/17 1331 Imaging Last Impressions Spleen Ultrasound 01/25/17 0000 Signed Impressions: Service Date/Time: Wednesday, January 25, 2017 09:00 - CONCLUSION: 1. Mild enlargement of the spleen. 2. Left pleural effusion. Casimiro Goss MD Chest Ultrasound 01/25/17 0000 Signed Impressions: Service Date/Time: Wednesday, January 25, 2017 14:18 - CONCLUSION: Pleural effusion as described above Joni Goss MD FACR Chest X-Ray 01/22/17 1850 Signed Impressions: Service Date/Time: Sunday, January 22, 2017 19:17 - CONCLUSION: Edema and bilateral effusions. Vin Perez MD Abdomen/Pelvis CT 01/22/17 3660 Signed Impressions: Service Date/Time: Sunday, January 22, 2017 20:27 - CONCLUSION: Effusions and consolidative changes in the lung bases. Abnormal liver appearance splenomegaly and ascites. Vin Perez MD Objective Remarks GENERAL: AAOx3, mild distress due to abdominal pain. SKIN: Warm and dry. HEAD: Normocephalic. EYES: No scleral icterus. No injection or drainage. NECK: Supple, trachea midline. No JVD or lymphadenopathy. CARDIOVASCULAR: Regular rate and rhythm without murmurs, gallops, or rubs. RESPIRATORY: Breath sounds decrease bilaterally. No accessory muscle use. GASTROINTESTINAL: Abdomen soft, tender TP LUQ, nondistended. MUSCULOSKELETAL: No cyanosis, +trace BLE edema. BACK: Nontender without obvious deformity. No CVA tenderness. Procedures sp Liver biopsy. Medications and IVs Current Medications Medications (Trade) Dose Ordered Sig/Herb Route Start Time Stop Time Status Last Admin (D50w (Vial) Inj) 25 ml UNSCH PRN IV PUSH 01/22/17 21:30 Glucagon 1 mg 1 mg UNSCH PRN OTHER 01/22/17 21:30 (Maxipime Inj/NS Inj) 100 ml @ 200 mls/hr Q12H IV 01/23/17 09:00 01/29/17 08:13 (NS Flush) 2 ml UNSCH PRN IV FLUSH 01/22/17 21:30 01/29/17 03:18 (NS Flush) 2 ml BID IV FLUSH 01/23/17 09:00 01/29/17 08:13 (Zofran Inj) 4 mg Q6H PRN IVP 01/22/17 21:30 01/29/17 03:18 (Dulcolax Supp) 10 mg DAILY PRN RECTAL 01/22/17 21:30 01/27/17 08:49 (Tylenol) 650 mg Q6H PRN PO 01/22/17 21:30 01/23/17 11:11 (Morphine Inj) 2 mg Q3H PRN IV 01/22/17 21:30 01/29/17 15:15 (Roxicodone) 5 mg Q4H PRN PO 01/22/17 21:30 01/28/17 10:55 (Lasix Inj) 20 mg BID@ IV PUSH 01/23/17 09:00 Hold 01/28/17 17:53 (Ecotrin Ec) 81 mg DAILY PO 01/23/17 09:00 01/29/17 08:12 (Lipitor) 40 mg HS PO 01/23/17 21:00 01/28/17 21:13 (Proscar) 5 mg HS PO 01/23/17 21:00 01/28/17 21:00 (Folate) 1 mg BID PO 01/23/17 09:00 01/29/17 08:12 (Mag-Ox) 400 mg DAILY PO 01/23/17 09:00 01/29/17 08:13 (Protonix) 20 mg DAILYAC PO 01/23/17 08:00 01/29/17 08:12 (Flomax) 0.4 mg HS PO 01/22/17 21:45 01/28/17 21:13 (Ambien) 10 mg HS PRN PO 01/22/17 21:45 (KCl) 20 meq DAILY PO 01/24/17 09:00 01/29/17 08:12 (Prograf) 2 mg BID PO 01/24/17 21:00 01/29/17 08:20 (Norvasc) 5 mg DAILY PO 01/26/17 09:00 01/29/17 08:12 Urinary Catheter: No Vascular Central Line Catheter: No A/P Problem List: (1) Acute on chronic diastolic (congestive) heart failure ICD Code: I50.33 Status: Acute Plan: Echo on 07/26/16 showed an ejection fraction of 50-55%, BNP 492, chest x- ray with bilateral pleural effusions, treated with Lasix IV. Patient then switched from IV to by mouth Lasix on a 2016. Continue potassium supplement daily 20 mEq. Monitor strict I's and O's, to the echo with EF 60-65%. 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 He has not followed up with [facility] in 5-10 years because of financial reasons, but states his insurance coverage has changed and he would now [facility]. Patient on chronic immunosuppressant therapy with Prograf. Home medications were continued throughout hospital stay. GI consulted. Appreciate recommendations. 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 ? Chronic rejection/autoimmune hepatitis. BILLY, ASMA, IgG pending. Follow-up GI recommendations. GI has placed a call to [facility] to discuss your biopsy findings and further management. (3) Renal insufficiency ICD Code: N28.9 Status: Acute Plan: Acute on chronic kidney disease stage III. BUN/creatinine worsening, Continue to hold diuretics Continue to monitor BUN/creatinine, strict I's and O's. CT abdomen and pelvis on 01/22 r/o hydronephrosis Consult nephrology (4) Hypomagnesemia ICD Code: E83.42 Status: Resolved Plan: Magnesium 1.5 status post replacements 2. Patient now with normal magnesium levels. Continue to monitor magnesium. (5) HTN (hypertension) ICD Code: I10 Status: Acute Plan: Blood pressure seems to be stable. Continue antihypertensive medications. (6) DM (diabetes mellitus) ICD Code: E11.9 Status: Chronic Plan: A1c 7.3. Diabetes mellitus. Well controlled. Continue SSI with insulin NovoLog and continue to monitor Accu-Cheks. Blood sugars have been stable. Continue to hold home insulin. (7) Community acquired bacterial pneumonia ICD Code: J15.9 Status: Acute Plan: CT abdomen and pelvis showed consolidative changes bilateral bases. Continue cefepime and azithromycin. (8) Decreased appetite ICD Code: R63.0 Status: Acute Plan: Likely secondary to hepatitis and liver cirrhosis. Consult dietitian. (9) QT prolongation ICD Code: R94.31 Status: Acute Plan: EKG obtained on 01/28/17 and reviewed by me showed ectopic atrial bradycardia with Q-t prolongation with a QTC of 528. I will discontinue sotalol and azithromycin which both can prolong QT. I will consult cardiology. The patient follows up with Dr. Lovell. Case discussed with Dr. Garcia who evaluated patient. He recommended resuming sotalol at 80 mg by mouth twice a day. (10) Hyperkalemia ICD Code: E87.5 Status: Acute Plan: Likely secondary to decreased renal function. I will stop potassium supplementation. I will give 10 units of regular IV insulin and oral Kayexalate. Check BMP in one hour. Discharge Planning Continue to monitor in the medical floor. Problem Qualifiers (1) HTN (hypertension): Qualified Code: I10 - Essential hypertension (2) DM (diabetes mellitus): Qualified Code: E11.8 - Type 2 diabetes mellitus with complication, with long- term current use of insulin Reji Garrison MD January 29, 2017 18:42
--- NOTE | 2017-01-29 20:57 | EKG ---
Date Performed: 01/29/2017 Time Performed: 05:47:20 PTAGE: 66 years EKG: Sinus bradycardia Prolonged QT interval Possible left anterior fascicular block Inferior in farct - age undetermined Possible septal infarct - age undetermined Lateral ST-T changes may be due t o myocardial ischemia Abnormal ECG NO PREVIOUS TRACING Compared to prior tracing no significant change DOCTOR: James Russell Interpretating Date/Time 01/29/2017 20:56:25
[2017-01-29] MEDS: ATORVASTATIN 40 MG TAB PO SCH (21:00)
[2017-01-29] MEDS: TAMSULOSIN HCL 0.4 MG CAP PO SCH (21:14)
[2017-01-29] MEDS: FINASTERIDE 5 MG TAB PO SCH (21:14)
[2017-01-29] MEDS ORDERED: INSULIN HUMAN REGULAR 1,000 UNITS/10 ML VIAL IV PUSH ONE (21:30)
[2017-01-29] MEDS ORDERED: SODIUM POLYSTYRENE SULFONATE SUSP 15 GM/60 ML CUP PO ONE (21:30)
[2017-01-29] MEDS ORDERED: DEXTROSE 50% IN WATER 50 ML VIAL(D50) IV PUSH ONE (22:00)
[2017-01-30] VITALS (8 sets, daily range): BP systolic 128–155; BP diastolic 63–82; PULSE 12–60; RESP 20; TEMP 97.5–98.4; O2SAT 98–100
[2017-01-30] MEDS: MORPHINE SULFATE 4 MG/ML INJ IV PRN ×6 (03:13→21:32)
[2017-01-30] MEDS: SODIUM CHLORIDE 0.9% FLUSH 10 ML FLUSH IV FLUSH PRN (03:13)
[2017-01-30] MEDS: SOTALOL HCL 80 MG TAB PO SCH ×2 (08:42→21:29)
[2017-01-30] MEDS: MAGNESIUM OXIDE 400 MG TAB PO SCH (08:42)
[2017-01-30] MEDS: FOLIC ACID 1 MG TAB PO SCH ×2 (08:42→21:31)
[2017-01-30] MEDS: ASPIRIN EC 81 MG TABEC PO SCH (08:42)
[2017-01-30] MEDS: TACROLIMUS 1 MG CAP PO SCH ×2 (08:42→21:30)
[2017-01-30] MEDS: amLODIPine BESYLATE 5 MG TAB PO SCH (08:43)
[2017-01-30] MEDS: SODIUM CHLORIDE 0.9% FLUSH 10 ML FLUSH IV FLUSH SCH ×2 (08:43→21:00)
[2017-01-30] MEDS: PANTOPRAZOLE SOD 20 MG DELAYED RELEASE TAB PO SCH (08:43)
[2017-01-30] MEDS: CEFEPIME INJ 1,000 MG in SODIUM CHLORIDE 0.9% INJ 100 ML IV SCH ×2 (08:43→21:31)
[2017-01-30 10:15] LABS: HEMATOCRIT 27.8 % (39.0-51.0); MEAN CELL VOLUME 83.9 FL (80.0-100.0); MEAN CORPUSCULAR HEMOGLOBIN 27.8 PG (27.0-34.0); MEAN CORPUSCULAR HGB CONC 33.1 % (32.0-36.0); PLATELET COUNT 144 TH/MM3 (150-450); RED BLOOD COUNT 3.31 MIL/MM3 (4.50-5.90); RED CELL DISTRIBUTION WIDTH 15.5 % (11.6-17.2); REVIEW FLAG FINAL; WHITE BLOOD COUNT 6.7 TH/MM3 (4.0-11.0)
[2017-01-30 10:30] LABS: POTASSIUM 5.4 MEQ/L (3.5-5.1)
[2017-01-30] MEDS: INSULIN ASPART SUPPLEMENTAL SCALE SQ SCH ×3 (11:39→21:28)
--- NOTE | 2017-01-30 13:54 | MB ---
cc: SHAILESH CARBONE MD DATE OF CONSULTATION: 01/30/2017 REASON FOR CONSULTATION: Elevated blood urea nitrogen and creatinine for evaluation. HISTORY OF PRESENT ILLNESS: This is a 66 year-old male with past medical history of ischemic heart disease, congestive heart failure, history of <<0:53>> , hypertension, diabetes mellitus, chronic kidney disease, not admitted because of shortness of breath. I was called to see the patient because of elevated blood urea nitrogen and creatinine. The patient has known history of chronic kidney disease and he was here last year in July and his creatinine has been in the range of 1.6 to 1.9 most of the time. The patient has not been following with her manager marketing communication. She was seen by Dr. Hernandez and he was here in the beginning of July and he has been following with Dr. Ramírez urologist and he was suppose to see the manager marketing communication in the [place] but he has not gotten any appointment. This is all information that I got from the patients who is present at bedside. The patient was diagnosed here for pneumonia and congestive heart failure, was seen by the recovery coach and he adjusted some of his medications. The patient has been getting antibiotics for pneumonia. He is currently on Cefepime. His potassium was elevated and he got one dose of Kayexalate yesterday. The patient is not eating well. He still has mild shortness of breath. He denies any chest pain. The patient is quite forgetful and most of the history was taken from the patients chart and some from the patients . He was given one dose of Lasix yesterday. He was on Lasix and it was stopped two days ago. Denies any dysuria, hematuria or difficulty with passing urine. PAST MEDICAL HISTORY: 1. Hypertension. 2. Diabetes mellitus. 3. Ischemic heart disease. 4. Congestive heart failure. 5. History of liver transplant. 6. Ulcerative colitis. 7. Anxiety. 8. Depression. 9. Chronic kidney disease. PAST SURGICAL HISTORY: History of liver transplant in 2001. REVIEW OF SYSTEMS The patient has generalized weakness, feeling tired. He has abdominal distention and decreased appetite. Not eating well. There is no nausea or vomiting, no history of diarrhea, he has shortness of breath. More increased on exertion and mild cough. No sputum. No chest pain, no palpitations, no dysuria, hematuria, or difficulty in passing urine. SOCIAL HISTORY: The patient is , there is no history of smoking, alcoholism. FAMILY HISTORY: Noncontributory. ALLERGIES No known drug allergies. MEDICATIONS: Currently he is on following medications; 1. Prograf 2 mg twice a day. 2. Folic acid 1 mg twice a day. 3. Aspirin 81 mg daily. 4. Magnesium oxide 400 mg once per day. 5. Amlodipine 5 mg daily. 6. Protonix 20 mg once per day. 7. Lipitor 20 mg q hs. 8. Proscar 5 mg q hs. 9. Flomax 0.4 mg q hs. 10. Cefepime 1 gram q 12 hours. 11. Sotalol 18 mg q 12 hours. 12. Insulin sliding scale. 13. Zofran if needed. 14. Ambien as needed. PHYSICAL EXAMINATION: IN GENERAL: The patient is awake, alert, he is sitting in the chair in no acute distress. VITAL SIGNS: Last blood pressure 165/72. His blood pressure has been on the higher side. There is no documented hypotensive episodes. Temperature 98.0, oxygen saturation 98% on two liters nasal cannula. HEAD, EYES, EARS, NOSE, AND THROAT: Pupils equal, round, reactive to light and accommodation, nonicteric sclera, conjunctivae pale. NECK: The neck is supple. Jugular venous distention not elevated. LUNGS: The patient has bilateral decreased air entry with basilar rales, some scattered wheezing. HEART: S1, S2, regular rhythm. ABDOMEN: The abdomen is distended, soft, lax, there is mild epigastric tenderness, there is no rebound or any active bowel sounds, positive. EXTREMITIES: He has mild edema in the legs. INVESTIGATION: White blood cell count 6.7, hemoglobin 9.2, platelet count 141, sodium 141, potassium 5.4. Chloride 106, bicarbonate 30, BUN 28, creatinine 1.6. Glucose 127. Potassium 8.7. Aspartate aminotransferase 38, ALT 15. Normal protein is 9.1. Albumin of 2.2. INR 1.2. Urinalysis showing protein of 100. His Prograf level was 13.2, the one before that was 6.0. Previously he had negative antinuclear antibodies. Also his antismooth muscle antibody is negative. IMAGING STUDIES: The patient has ultrasound of the chest done which showed that he has pleural effusion to the left side. Ultrasound of spleen was done which shows the spleen is mildly enlarged [address] scan of the abdomen and pelvis was done with IV contrast on January 22 and it shows consolidative changes at the lung bases, abnormal appearance of the liver. Splenomegaly and ascites. The bladder is reported as no wall thickening or mass and kidney's are reported as small cystic cyst and nonobstructive tiny stone on the left side. No evidence of hydronephrosis. ASSESSMENT AND PLAN: 1. Chronic kidney disease. 2. History of liver transplant. 3. Congestive heart failure. 4. Pneumonia. 5. Diabetes mellitus. 6. Hypertension. 7. Hypokalemia. 8. Patient has advanced renal disease with proteinuria. His creatinine is close to his baseline, the potassium was high, he received one dose of Potassium yesterday and now it is 5.4. Most likely has hypertension with renal disease. He has history of liver transplant and has been on Prograf. The level was slightly elevated but the initial level was in the normal range. So we will continue with the same dose, continue antibiotic, advised to avoid any nephrotoxins. At present Lasix is on hold, it can be restarted at the lower dose. Thank you for the consultation, I will follow the patient while he is in hospital. MD SIMI Harris/iliana /12:58 PM /1:08 PM RODNEY
[2017-01-30] MEDS ORDERED: ALPRAZolam 0.5 MG TAB PO PRN (14:15)
[2017-01-30] MEDS: MEGESTROL ACETATE SUSP 400 MG/10 ML CUP PO SCH (14:24)
--- NOTE | 2017-01-30 15:42 | HHI.PR ---
Subjective Remarks Deferred entry, patient seen earlier at 11:30 AM. Patient complains of paresthesias in hands and feet, states he was previously on gabapentin which has not been continued Denies chest pain or shortness of breath Still with poor appetite Still complains of left upper quadrant abdominal pain Denies nausea, vomiting, nice fevers or chills Objective Vitals Vital Signs Date Time Temp Pulse Resp B/P Pulse Ox O2 Delivery O2 Flow Rate FiO2 01/30/17 11:50 98.0 58 20 155/72 98 01/30/17 09:00 12 01/30/17 08:00 Nasal Cannula 2.00 01/30/17 07:50 98.1 60 20 151/72 99 01/30/17 04:00 97.9 59 20 137/82 100 01/30/17 04:00 Nasal Cannula 2.00 01/30/17 00:07 98.4 56 20 153/72 98 01/30/17 00:00 Nasal Cannula 2.00 01/29/17 20:14 59 01/29/17 20:00 98.7 56 16 152/70 94 01/29/17 20:00 Nasal Cannula 2.00 01/29/17 16:00 98.7 55 18 155/74 100 I/O 01/29/17 01/29/17 01/29/17 01/30/17 01/30/17 01/30/17 06:59 14:59 22:59 06:59 14:59 22:59 Intake Total 240 ml 360 ml 240 ml 240 ml 100 ml Output Total 650 ml 400 ml 300 ml 400 ml Balance -410 ml -40 ml -60 ml -160 ml 100 ml Intake Oral 240 ml 360 ml 240 ml 240 ml IV Total 100 ml Output Urine Total 650 ml 400 ml 300 ml 400 ml # Bowel Movements 0 0 0 Result Diagram: 01/30/17 0950 01/30/17 0950 Imaging Last Impressions Spleen Ultrasound 01/25/17 0000 Signed Impressions: Service Date/Time: Wednesday, January 25, 2017 09:00 - CONCLUSION: 1. Mild enlargement of the spleen. 2. Left pleural effusion. Casimiro Goss MD Chest Ultrasound 01/25/17 0000 Signed Impressions: Service Date/Time: Wednesday, January 25, 2017 14:18 - CONCLUSION: Pleural effusion as described above Joni Goss MD FACR Chest X-Ray [id number]/22/[id number] Signed Impressions: Service Date/Time: Sunday, January 22, 2017 19:17 - CONCLUSION: Edema and bilateral effusions. Vin Perez MD Abdomen/Pelvis CT [id number]/22/[id number] Signed Impressions: Service Date/Time: Sunday, January 22, 2017 20:27 - CONCLUSION: Effusions and consolidative changes in the lung bases. Abnormal liver appearance splenomegaly and ascites. Vin Perez MD Objective Remarks GENERAL: AAOx3, mild distress due to abdominal pain. SKIN: Warm and dry. HEAD: Normocephalic. EYES: No scleral icterus. No injection or drainage. NECK: Supple, trachea midline. No JVD or lymphadenopathy. CARDIOVASCULAR: Regular rate and rhythm without murmurs, gallops, or rubs. RESPIRATORY: Breath sounds decrease bilaterally. No accessory muscle use. GASTROINTESTINAL: Abdomen soft, tender TP LUQ, nondistended. MUSCULOSKELETAL: No cyanosis, +trace BLE edema. BACK: Nontender without obvious deformity. No CVA tenderness. Procedures sp Liver biopsy. Medications and IVs Current Medications Medications (Trade) Dose Ordered Sig/Herb Route Start Time Stop Time Status Last Admin (D50w (Vial) Inj) 25 ml UNSCH PRN IV PUSH 01/22/17 21:30 Glucagon 1 mg 1 mg UNSCH PRN OTHER 01/22/17 21:30 (Maxipime Inj/NS Inj) 100 ml @ 200 mls/hr Q12H IV 01/23/17 09:00 01/30/17 08:43 (NS Flush) 2 ml UNSCH PRN IV FLUSH 01/22/17 21:30 01/30/17 03:13 (NS Flush) 2 ml BID IV FLUSH 01/23/17 09:00 01/30/17 08:43 (Zofran Inj) 4 mg Q6H PRN IVP 01/22/17 21:30 01/29/17 22:35 (Dulcolax Supp) 10 mg DAILY PRN RECTAL 01/22/17 21:30 01/27/17 08:49 (Tylenol) 650 mg Q6H PRN PO 01/22/17 21:30 01/23/17 11:11 (Morphine Inj) 2 mg Q3H PRN IV 01/22/17 21:30 01/30/17 15:04 (Roxicodone) 5 mg Q4H PRN PO 01/22/17 21:30 01/28/17 10:55 (Lasix Inj) 20 mg BID@,18 IV PUSH 01/23/17 09:00 Hold 01/28/17 17:53 (Ecotrin Ec) 81 mg DAILY PO 01/23/17 09:00 01/30/17 08:42 (Lipitor) 40 mg HS PO 01/23/17 21:00 01/28/17 21:13 (Proscar) 5 mg HS PO 01/23/17 21:00 01/29/17 21:14 (Folate) 1 mg BID PO 01/23/17 09:00 01/30/17 08:42 (Mag-Ox) 400 mg DAILY PO 01/23/17 09:00 01/30/17 08:42 (Protonix) 20 mg DAILYAC PO 01/23/17 08:00 01/30/17 08:43 (Flomax) 0.4 mg HS PO 01/22/17 21:45 01/29/17 21:14 (Ambien) 10 mg HS PRN PO 01/22/17 21:45 (Prograf) 2 mg BID PO 01/24/17 21:00 01/30/17 08:42 (Norvasc) 5 mg DAILY PO 01/26/17 09:00 01/30/17 08:43 (Betapace) 80 mg Q12HR PO 01/30/17 09:00 01/30/17 08:42 (Xanax) 0.5 mg Q8H PRN PO 01/30/17 14:15 01/30/17 14:24 (Megace Liq) 400 mg DAILY PO 01/30/17 14:15 01/30/17 14:24 (Neurontin) 300 mg TID PO 01/30/17 18:00 Urinary Catheter: No Vascular Central Line Catheter: No A/P Problem List: (1) Acute on chronic diastolic (congestive) heart failure ICD Code: I50.33 Status: Acute (2) Liver transplant recipient ICD Code: Z94.4 Status: Acute (3) Renal insufficiency ICD Code: N28.9 Status: Acute (4) Hypomagnesemia ICD Code: E83.42 Status: Resolved (5) HTN (hypertension) ICD Code: I10 Status: Acute (6) DM (diabetes mellitus) ICD Code: E11.9 Status: Chronic (7) Community acquired bacterial pneumonia ICD Code: J15.9 Status: Acute (8) Decreased appetite ICD Code: R63.0 Status: Acute (9) QT prolongation ICD Code: R94.31 Status: Acute (10) Hyperkalemia ICD Code: E87.5 Status: Acute (11) Neuropathy ICD Code: G62.9 Status: Acute Plan: Patient has a history of neuropathy. Complains of paresthesias in bilateral hands and feet. Patient states he was previously on gabapentin, however this is not listed in his medication reconciliation list. I will start the patient on gabapentin 300 mg by mouth 3 times a day. Continue to monitor for further clinical response. (12) Anxiety ICD Code: F41.9 Status: Acute Plan: Patient complaint of anxiety to the RN. I will start the patient on Xanax 0.5 minutes by mouth 3 times a day when necessary for anxiety. Assessment and Plan (1) Acute on chronic diastolic (congestive) heart failure Plan: Echo on 07/26/16 showed an ejection fraction of 50-55%, BNP 492, chest x- ray with bilateral pleural effusions, treated with Lasix IV. Patient then switched from IV to by mouth Lasix on a 2017. Continue potassium supplement daily 20 mEq. Monitor strict I's and O's, to the echo with EF 60-65%. Continue to hold Lasix (2) Liver transplant recipient Plan: Liver cirrhosis, with hx of orthotopic liver transplant for liver cirrhosis secondary to primary sclerosing cholangitis in 2001 at the [facility] in [place] and current liver cirrhosis and thrombocytopenia. He has not followed up with [facility] in 5-10 years because of financial reasons, but states his insurance coverage has changed and [facility] now [facility]. Patient on chronic immunosuppressant therapy with Prograf. Home medications were continued throughout hospital stay. GI consulted. Appreciate recommendations. 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 ? Chronic rejection/autoimmune hepatitis. BILLY, ASMA, IgG pending. Follow-up GI recommendations. GI has placed a call to [facility] to discuss your biopsy findings and further management. (3) Renal insufficiency Plan: Acute on chronic kidney disease stage III. BUN/creatinine worsening, Continue to hold diuretics Continue to monitor BUN/creatinine, strict I's and O's. CT abdomen and pelvis on 01/22 r/o hydronephrosis Consult nephrology (4) Hypomagnesemia Plan: Magnesium 1.5 status post replacements 2. Patient now with normal magnesium levels. Continue to monitor magnesium. (5) HTN (hypertension) Plan: Blood pressure seems to be stable. Continue antihypertensive medications. (6) DM (diabetes mellitus) Plan: A1c 7.3. Diabetes mellitus. Well controlled. Continue SSI with insulin NovoLog and continue to monitor Accu-Cheks. Blood sugars have been stable. Continue to hold home insulin. (7) Community acquired bacterial pneumonia Plan: CT abdomen and pelvis showed consolidative changes bilateral bases. Continue cefepime, azithromycin discontinued due to prolonged QTC.. (8) Decreased appetite Plan: Likely secondary to hepatitis and liver cirrhosis. 01/30 Dietitian consulted, appreciate recommendations. We'll start Glucerna daily. I will also Rx Megace for appetite stimulant. Change diet to 2500 ADA diet. (9) QT prolongation Plan: EKG obtained on 01/28/17 and reviewed by me showed ectopic atrial bradycardia with Q-t prolongation with a QTC of 528. I will discontinue sotalol and azithromycin which both can prolong QT. I will consult cardiology. The patient follows up with Dr. Lovell. Case discussed with Dr. Garcia who evaluated patient. He recommended resuming sotalol at 80 mg by mouth twice a day. 01/30 EKG shows possible ectopic atrial bradycardia and a QTC of 470. (10) Hyperkalemia Plan: Likely secondary to decreased renal function. Patient had an elevated potassium 5.8 on 01/29/17, status post treatment with 10 units of regular insulin and Kayexalate. Potassium supplementation was discontinued. 01/30 potassium 5.4 today. I will give another 2 units of regular IV insulin and Kayexalate. Discharge Planning Continue to monitor in the medical floor. Problem Qualifiers (1) HTN (hypertension): Qualified Code: I10 - Essential hypertension (2) DM (diabetes mellitus): Qualified Code: E11.8 - Type 2 diabetes mellitus with complication, with long- term current use of insulin Reji Garrison MD January 30, 2017 15:42
--- NOTE | 2017-01-30 16:06 | EKG ---
Date Performed: 01/30/2017 Time Performed: 09:30:12 PTAGE: 66 years EKG: Possible ectopic atrial bradycardia. Prolonged QT interval Left axis deviation Inferior inf arct - age undetermined Anteroseptal infarct - age undetermined Possible left ventricular hypertrophy Lateral ST-T changes are probably due to ventricular hypertrophy Abnormal ECG PREVIOUS TRACING : 01/29/2017 05.47 Compared to prior tracing no significant change DOCTOR: Alexus Navarro Interpretating Date/Time 01/30/2017 16:05:06
[2017-01-30] MEDS: GABAPENTIN 300 MG CAP PO SCH (17:02)
[2017-01-30] MEDS ORDERED: SODIUM POLYSTYRENE SULFONATE SUSP 15 GM/60 ML CUP PO ONE (19:45)
[2017-01-30] MEDS ORDERED: INSULIN HUMAN REGULAR 1,000 UNITS/10 ML VIAL IV PUSH ONE (19:45)
[2017-01-30] MEDS: FUROSEMIDE 40 MG TAB PO SCH (20:00)
[2017-01-30] MEDS: ATORVASTATIN 40 MG TAB PO SCH (21:00)
[2017-01-30] MEDS: FINASTERIDE 5 MG TAB PO SCH (21:30)
[2017-01-30] MEDS: TAMSULOSIN HCL 0.4 MG CAP PO SCH (21:30)
[2017-01-31] VITALS (7 sets, daily range): BP systolic 129–153; BP diastolic 60–74; PULSE 58–82; RESP 16–20; TEMP 97–98.7; O2SAT 94–98
[2017-01-31] MEDS: INSULIN ASPART SUPPLEMENTAL SCALE SQ SCH ×4 (05:25→19:41)
[2017-01-31] MEDS: MORPHINE SULFATE 4 MG/ML INJ IV PRN ×4 (06:10→17:09)
[2017-01-31] MEDS: SODIUM CHLORIDE 0.9% FLUSH 10 ML FLUSH IV FLUSH SCH ×2 (09:00→21:15)
[2017-01-31] MEDS: SOTALOL HCL 80 MG TAB PO SCH ×2 (09:41→21:16)
[2017-01-31] MEDS: ASPIRIN EC 81 MG TABEC PO SCH (09:41)
[2017-01-31] MEDS: GABAPENTIN 300 MG CAP PO SCH ×3 (09:41→17:06)
[2017-01-31] MEDS: MAGNESIUM OXIDE 400 MG TAB PO SCH (09:41)
[2017-01-31] MEDS: FUROSEMIDE 40 MG TAB PO SCH (09:41)
[2017-01-31] MEDS: PANTOPRAZOLE SOD 20 MG DELAYED RELEASE TAB PO SCH (09:42)
[2017-01-31] MEDS: MEGESTROL ACETATE SUSP 400 MG/10 ML CUP PO SCH (09:42)
[2017-01-31] MEDS: CEFEPIME INJ 1,000 MG in SODIUM CHLORIDE 0.9% INJ 100 ML IV SCH ×2 (09:42→21:15)
[2017-01-31] MEDS: TACROLIMUS 1 MG CAP PO SCH ×2 (09:42→21:15)
[2017-01-31] MEDS: FOLIC ACID 1 MG TAB PO SCH ×2 (09:42→21:16)
[2017-01-31] MEDS: amLODIPine BESYLATE 5 MG TAB PO SCH (09:42)
--- NOTE | 2017-01-31 11:21 | HHI.NPPN ---
Subjective Renal Failure: Chronic, Acute History of Present Illness 66 year-old male with past medical history of ischemic heart disease, congestive heart failure, history of <<0:53>> , hypertension, diabetes mellitus, chronic kidney disease, not admitted because of shortness of breath. I was called to see the patient because of elevated blood urea nitrogen and creatinine. The patient has known history of chronic kidney disease and he was here last year in July and his creatinine has been in the range of 1.6 to 1.9 most of the time. Additional Remarks Patient is alert, breathing is better, not in distress. Review of Systems General Constitutional: Fatigue Respiratory Lungs: SOB Cardiovascular Cardiac: SOTO Objective Data Data 01/30/17 01/31/17 18:59 06:59 Intake Total 397 ml 244 ml Output Total 450 ml 400 ml Balance -53 ml -156 ml Intake Oral 297 ml 240 ml IV Total 100 ml 4 ml Output Urine Total 450 ml 400 ml # Voids 0 2 # Bowel Movements 0 Vital Signs Date Time Temp Pulse Resp B/P Pulse Ox O2 Delivery O2 Flow Rate FiO2 01/31/17 08:00 97.6 63 16 129/61 94 01/31/17 08:00 Nasal Cannula 2.00 01/31/17 06:00 97.0 62 20 153/72 97 01/31/17 00:00 97.0 60 20 148/74 97 01/30/17 21:00 2.00 01/30/17 20:00 97.5 57 20 128/71 98 01/30/17 19:53 58 01/30/17 15:50 98.0 57 20 137/63 98 01/30/17 11:50 98.0 58 20 155/72 98 -: 01/30/17 0950 01/30/17 0950 Physical Exam General Appearance: No Acute Distress, Comfortable Eyes Eye Exam: Pupils Equal Throat Throat Exam: Oral Mucosa [place] & Moist Neck Neck Exam: Neck Supple Pulmonary Resp Exam: No Distress, Crackles, Rhonchi, Decreased Bases, Diminished Breath Sounds Cardiology CV Exam: Regular, Normal Sinus Rhythm Gastrointestinal/Abdomen GI Exam: Soft, Non-Tender, Bowel Sounds Present, Distended Extremeties Extremities Exam: Trace Edema Neurologic Neuro Exam: Alert, Awake, Oriented Psychiatric Psych Exam: Appropriate Responses Assessment/Plan Assessment Summary: RAN/Acute Renal Failure, CHF, Hypertension, CKD Stage III Problem List: (1) Acute on chronic diastolic (congestive) heart failure (2) DM (diabetes mellitus) (3) HTN (hypertension) (4) A-fib (5) Anemia (6) Acute on chronic kidney disease, stage 3 Plan Patient has been non oliguric. Creatinine was improving yesterday. Has stage 3 chronic kidney disease, most likely due to Hypertensive or renovascular disease. BP is stable. Started on Lasix once a day. Follow the urine out put and BMP. Problem Qualifiers (1) DM (diabetes mellitus): Qualified Code: E11.8 - Type 2 diabetes mellitus with complication, with long- term current use of insulin (2) HTN (hypertension): Qualified Code: I10 - Essential hypertension Sunil Maya MD January 31, 2017 11:21
[2017-01-31] MEDS: INSULIN ASPART 1,000 UNITS/10 ML VIAL SQ SCH (18:30)
--- NOTE | 2017-01-31 18:38 | HHI.PR ---
Subjective Remarks Patient looks much better states appetite is much improved as per RN ate all his food denies fevers or chills Objective Vitals Vital Signs Date Time Temp Pulse Resp B/P Pulse Ox O2 Delivery O2 Flow Rate FiO2 01/31/17 16:00 98.7 58 18 130/61 98 01/31/17 12:00 98.0 63 18 142/67 97 01/31/17 08:00 97.6 63 16 129/61 94 01/31/17 08:00 Nasal Cannula 2.00 01/31/17 06:00 97.0 62 20 153/72 97 01/31/17 00:00 97.0 60 20 148/74 97 01/30/17 21:00 2.00 01/30/17 20:00 97.5 57 20 128/71 98 01/30/17 19:53 58 I/O 01/30/17 01/30/17 01/30/17 01/31/17 01/31/17 01/31/17 07:00 15:00 23:00 07:00 15:00 23:00 Intake Total 240 ml 100 ml 539 ml 2 ml 480 ml Output Total 400 ml 450 ml 400 ml 300 ml Balance -160 ml 100 ml 89 ml -398 ml 180 ml Intake Oral 240 ml 537 ml 480 ml IV Total 100 ml 2 ml 2 ml Output Urine Total 400 ml 450 ml 400 ml 300 ml # Voids 2 # Bowel Movements 0 0 Result Diagram: 01/30/17 0950 01/30/17 0950 Imaging Last Impressions Spleen Ultrasound 01/25/17 0000 Signed Impressions: Service Date/Time: Wednesday, January 25, 2017 09:00 - CONCLUSION: 1. Mild enlargement of the spleen. 2. Left pleural effusion. Casimiro Goss MD Chest Ultrasound 01/25/17 0000 Signed Impressions: Service Date/Time: Wednesday, January 25, 2017 14:18 - CONCLUSION: Pleural effusion as described above Joni Goss MD FACR Chest X-Ray 01/22/171849 Signed Impressions: Service Date/Time: Sunday, January 22, 2017 19:17 - CONCLUSION: Edema and bilateral effusions. Vin Perez MD Abdomen/Pelvis CT [id number]/22/171849 Signed Impressions: Service Date/Time: Sunday, January 22, 2017 20:27 - CONCLUSION: Effusions and consolidative changes in the lung bases. Abnormal liver appearance splenomegaly and ascites. Vin Perez MD Objective Remarks GENERAL: AAOx3, no acute distress. Sitting at bedside in chair, smiling. SKIN: Warm and dry. HEAD: Normocephalic. EYES: No scleral icterus. No injection or drainage. NECK: Supple, trachea midline. No JVD or lymphadenopathy. CARDIOVASCULAR: Regular rate and rhythm without murmurs, gallops, or rubs. RESPIRATORY: Breath sounds decrease bilaterally. No accessory muscle use. GASTROINTESTINAL: Abdomen soft, mildly tender to palpation. Upper quadrant. Nondistended. Bowel sounds present. MUSCULOSKELETAL: No cyanosis, +1 edema of bilateral lower extremity edema. BACK: Nontender without obvious deformity. No CVA tenderness. Procedures sp Liver biopsy. Medications and IVs Current Medications Medications (Trade) Dose Ordered Sig/Herb Route Start Time Stop Time Status Last Admin (D50w (Vial) Inj) 25 ml UNSCH PRN IV PUSH 01/22/17 21:30 Glucagon 1 mg 1 mg UNSCH PRN OTHER 01/22/17 21:30 (Maxipime Inj/NS Inj) 100 ml @ 200 mls/hr Q12H IV 01/23/17 09:00 01/31/17 09:42 (NS Flush) 2 ml UNSCH PRN IV FLUSH 01/22/17 21:30 01/30/17 03:13 (NS Flush) 2 ml BID IV FLUSH 01/23/17 09:00 01/31/17 09:00 (Zofran Inj) 4 mg Q6H PRN IVP 01/22/17 21:30 01/29/17 22:35 (Dulcolax Supp) 10 mg DAILY PRN RECTAL 01/22/17 21:30 01/27/17 08:49 (Tylenol) 650 mg Q6H PRN PO 01/22/17 21:30 01/23/17 11:11 (Morphine Inj) 2 mg Q3H PRN IV 01/22/17 21:30 01/31/17 17:09 (Roxicodone) 5 mg Q4H PRN PO 01/22/17 21:30 01/28/17 10:55 (Ecotrin Ec) 81 mg DAILY PO 01/23/17 09:00 01/31/17 09:41 (Lipitor) 40 mg HS PO 01/23/17 21:00 01/28/17 21:13 (Proscar) 5 mg HS PO 01/23/17 21:00 01/30/17 21:30 (Folate) 1 mg BID PO 01/23/17 09:00 01/31/17 09:42 (Mag-Ox) 400 mg DAILY PO 01/23/17 09:00 01/31/17 09:41 (Protonix) 20 mg DAILYAC PO 01/23/17 08:00 01/31/17 09:42 (Flomax) 0.4 mg HS PO 01/22/17 21:45 01/30/17 21:30 (Ambien) 10 mg HS PRN PO 01/22/17 21:45 (Prograf) 2 mg BID PO 01/24/17 21:00 01/31/17 09:42 (Norvasc) 5 mg DAILY PO 01/26/17 09:00 01/31/17 09:42 (Betapace) 80 mg Q12HR PO 01/30/17 09:00 01/31/17 09:41 (Xanax) 0.5 mg Q8H PRN PO 01/30/17 14:15 01/30/17 14:24 (Megace Liq) 400 mg DAILY PO 01/30/17 14:15 01/31/17 09:42 (Neurontin) 300 mg TID PO 01/30/17 18:00 01/31/17 17:06 (Lasix) 40 mg DAILY PO 01/30/17 20:00 01/31/17 09:41 Urinary Catheter: No Vascular Central Line Catheter: No A/P Problem List: (1) Acute on chronic diastolic (congestive) heart failure ICD Code: I50.33 Status: Resolved (2) Liver transplant recipient ICD Code: Z94.4 Status: Chronic (3) Renal insufficiency ICD Code: N28.9 Status: Acute (4) Hypomagnesemia ICD Code: E83.42 Status: Resolved (5) HTN (hypertension) ICD Code: I10 Status: Chronic (6) DM (diabetes mellitus) ICD Code: E11.9 Status: Chronic (7) Community acquired bacterial pneumonia ICD Code: J15.9 Status: Resolved (8) Decreased appetite ICD Code: R63.0 Status: Resolved (9) QT prolongation ICD Code: R94.31 Status: Resolved (10) Hyperkalemia ICD Code: E87.5 Status: Acute (11) Neuropathy ICD Code: G62.9 Status: Chronic Plan: Patient has a history of neuropathy. Complains of paresthesias in bilateral hands and feet. Patient states he was previously on gabapentin, however this is not listed in his medication reconciliation list. Gabapentin 300 mg by mouth 3 times a day resumed on 01/30. Seems to be improving. (12) Anxiety ICD Code: F41.9 Status: Chronic Plan: Seems to be better. Continue Xanax PRN. Assessment and Plan (1) Acute on chronic diastolic (congestive) heart failure Plan: Echo on 07/26/16 showed an ejection fraction of 50-55%, BNP 492, chest x- ray with bilateral pleural effusions, treated with Lasix IV. Patient then switched from IV to by mouth Lasix on a 2016. Continue potassium supplement daily 20 mEq. Monitor strict I's and O's, to the echo with EF 60-65%. 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 He has not followed up with [facility] in 5-10 years because of financial reasons, but states his insurance coverage has changed and he [facility] now [facility]. Patient on chronic immunosuppressant therapy with Prograf. Home medications were continued throughout hospital stay. GI consulted. Appreciate recommendations. 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 ? Chronic rejection/autoimmune hepatitis. BILLY, ASMA, IgG pending. Follow-up GI recommendations. GI has placed a call to [facility] to discuss your biopsy findings and further management. Will follow up. (3) Renal insufficiency Plan: Acute on chronic kidney disease stage III. BUN/creatinine worsening, Continue to hold diuretics Continue to monitor BUN/creatinine, strict I's and O's. CT abdomen and pelvis on 01/22 r/o hydronephrosis Nephrology consult appreciated. 01/31 Creatinine seems to be trending down. Down to 1.6 on 01/30. Lasix 40 mg po daily restarted. (4) Hypomagnesemia Plan: Magnesium 1.5 status post replacements 2. Patient now with normal magnesium levels. Continue to monitor magnesium. (5) HTN (hypertension) Plan: Blood pressure seems to be stable. Continue antihypertensive medications. (6) DM (diabetes mellitus) Plan: A1c 7.3. Diabetes mellitus initially well controlled, patient home insulin held on admission and patient's blood sugar controlled with SSI with insulin NovoLog and Accu-Cheks monitored. 01/31 home insulin held initially since patient not eating well and blood sugars stable. Now patient's appetite [facility] improved and blood sugars are uncontrolled in the 300's. So the patient on basal bolus therapy with insulin Levemir 10 mg subcutaneously twice a day and insulin NovoLog 5 units 3 times a day with meals. Continue coverage with SSI with insulin NovoLog and continue to monitor Accu-Cheks. (7) Community acquired bacterial pneumonia Plan: CT abdomen and pelvis showed consolidative changes bilateral bases. Continue cefepime, azithromycin discontinued due to prolonged QTC.. (8) Decreased appetite Plan: Likely secondary to hepatitis and liver cirrhosis. 01/30 Dietitian consulted, appreciate recommendations. Started on Glucerna daily. Changed diet to 2500 ADA diet. Appetite improved with Megace. Continue. (9) QT prolongation Plan: EKG obtained on 01/28/17 and reviewed by me showed ectopic atrial bradycardia with Q-t prolongation with a QTC of 528. I will discontinue sotalol and azithromycin which both can prolong QT. I will consult cardiology. The patient follows up with Dr. Lovell. Case discussed with Dr. Garcia who evaluated patient. He recommended resuming sotalol at 80 mg by mouth twice a day. 01/30 EKG shows possible ectopic atrial bradycardia and a QTC of 470. (10) Hyperkalemia Plan: Likely secondary to decreased renal function. Patient had an elevated potassium 5.8 on 01/29/17, status post treatment with 10 units of regular insulin and Kayexalate. Potassium supplementation was discontinued. 01/30 potassium 5.4 today. I will give another 2 units of regular IV insulin and Kayexalate. 01/31 Repeat BMP - pending Discharge Planning Continue to monitor in the medical floor. Problem Qualifiers (1) HTN (hypertension): Qualified Code: I10 - Essential hypertension (2) DM (diabetes mellitus): Qualified Code: E11.8 - Type 2 diabetes mellitus with complication, with long- term current use of insulin Reji Garrison MD January 31, 2017 18:38
[2017-01-31 18:54] LABS: POTASSIUM 5.4 MEQ/L (3.5-5.1)
[2017-01-31] MEDS: ATORVASTATIN 40 MG TAB PO SCH ×2 (21:00→21:16)
[2017-01-31] MEDS: FINASTERIDE 5 MG TAB PO SCH (21:15)
[2017-01-31] MEDS: TAMSULOSIN HCL 0.4 MG CAP PO SCH (21:16)
[2017-01-31] MEDS: INSULIN DETEMIR 100 UNITS/ML VIAL SQ SCH (21:19)
[2017-01-31] MEDS ORDERED: SODIUM POLYSTYRENE SULFONATE SUSP 15 GM/60 ML CUP PO ONE (23:15)
[2017-02-01] VITALS (7 sets, daily range): BP systolic 140–175; BP diastolic 63–85; PULSE 61–78; RESP 18–19; TEMP 98.6–99.5; O2SAT 94–98
[2017-02-01] MEDS: MORPHINE SULFATE 4 MG/ML INJ IV PRN ×5 (01:51→22:15)
[2017-02-01] MEDS: INSULIN ASPART SUPPLEMENTAL SCALE SQ SCH ×4 (06:13→22:32)
[2017-02-01] MEDS: SOTALOL HCL 80 MG TAB PO SCH ×2 (09:00→22:11)
[2017-02-01] MEDS: MAGNESIUM OXIDE 400 MG TAB PO SCH (09:00)
[2017-02-01] MEDS: INSULIN DETEMIR 100 UNITS/ML VIAL SQ SCH ×2 (09:00→22:32)
[2017-02-01] MEDS: FOLIC ACID 1 MG TAB PO SCH ×2 (09:00→22:12)
[2017-02-01] MEDS: FUROSEMIDE 40 MG TAB PO SCH (09:01)
[2017-02-01] MEDS: TACROLIMUS 1 MG CAP PO SCH ×2 (09:01→22:11)
[2017-02-01] MEDS: GABAPENTIN 300 MG CAP PO SCH ×3 (09:01→17:11)
[2017-02-01] MEDS: ASPIRIN EC 81 MG TABEC PO SCH (09:01)
[2017-02-01] MEDS: amLODIPine BESYLATE 5 MG TAB PO SCH (09:01)
[2017-02-01] MEDS: PANTOPRAZOLE SOD 20 MG DELAYED RELEASE TAB PO SCH (09:01)
[2017-02-01] MEDS: CEFEPIME INJ 1,000 MG in SODIUM CHLORIDE 0.9% INJ 100 ML IV SCH ×2 (09:02→22:10)
[2017-02-01] MEDS: MEGESTROL ACETATE SUSP 400 MG/10 ML CUP PO SCH (09:02)
[2017-02-01] MEDS: SODIUM CHLORIDE 0.9% FLUSH 10 ML FLUSH IV FLUSH SCH ×2 (09:12→22:12)
[2017-02-01 09:25] LABS: AUTOMATED NEUTROPHIL # 4.7 TH/MM3 (1.8-7.7); BASOPHIL % 0.4 % (0.0-2.0); EOSINOPHIL # 0.2 TH/MM3 (0-0.4); EOSINOPHIL % 2.6 % (0.0-4.0); HEMO FLAGS DIFF FINAL; LYMPH % 27.8 % (9.0-44.0); LYMPHOCYTE # 2.2 TH/MM3 (1.0-4.8); MEAN CELL VOLUME 84.8 FL (80.0-100.0); MEAN CORPUSCULAR HEMOGLOBIN 27.3 PG (27.0-34.0); MEAN CORPUSCULAR HGB CONC 32.2 % (32.0-36.0); MONO % 9.5 % (0.0-8.0); NEUT % 59.7 % (16.0-70.0); PLATELET COUNT 140 TH/MM3 (150-450); RED BLOOD COUNT 3.19 MIL/MM3 (4.50-5.90); RED CELL DISTRIBUTION WIDTH 15.5 % (11.6-17.2); WHITE BLOOD COUNT 7.9 TH/MM3 (4.0-11.0)
[2017-02-01] MEDS: INSULIN ASPART 1,000 UNITS/10 ML VIAL SQ SCH ×4 (09:30→17:20)
[2017-02-01 09:38] LABS: ALKALINE PHOSPHATASE 117 U/L (45-117); ALT (GPT) 14 U/L (12-78); ANION GAP 4 MEQ/L (5-15); AST (GOT) 30 U/L (15-37); BICARBONATE 29.2 MEQ/L (21.0-32.0); BLOOD UREA NITROGEN 34 MG/DL (7-18); CHLORIDE 107 MEQ/L (98-107); GLOMERULAR FILTRATION RATE 41 ML/MIN (>89); POTASSIUM 5.1 MEQ/L (3.5-5.1); SODIUM (NA) 140 MEQ/L (136-145); TOTAL BILIRUBIN ADULT 0.4 MG/DL (0.2-1.0)
--- NOTE | 2017-02-01 16:11 | HHI.NPPN ---
Subjective Renal Failure: Chronic, Acute History of Present Illness 66 year-old male with past medical history of ischemic heart disease, congestive heart failure, history of <<0:53>> , hypertension, diabetes mellitus, chronic kidney disease, not admitted because of shortness of breath. I was called to see the patient because of elevated blood urea nitrogen and creatinine. The patient has known history of chronic kidney disease and he was here last year in July and his creatinine has been in the range of 1.6 to 1.9 most of the time. Additional Remarks Patient is alert, breathing is better, not eating well, seen in AM. Review of Systems General Constitutional: Fatigue Respiratory Lungs: SOB Cardiovascular Cardiac: SOTO Objective Data Data 01/31/17 02/01/17 18:59 06:59 Intake Total 480 ml 594 ml Output Total 300 ml 800 ml Balance 180 ml -206 ml Intake Oral 480 ml 480 ml IV Total 114 ml Output Urine Total 300 ml 800 ml # Bowel Movements 0 Vital Signs Date Time Temp Pulse Resp B/P Pulse Ox O2 Delivery O2 Flow Rate FiO2 02/01/17 12:09 98.6 65 19 159/76 98 02/01/17 08:05 98.7 63 18 144/76 96 02/01/17 04:00 99.5 64 18 140/63 94 02/01/17 00:00 99.5 61 18 158/77 94 01/31/17 20:55 2.00 01/31/17 20:00 98.6 82 18 129/60 96 01/31/17 19:32 61 -: 02/01/17 0823 02/01/17 0823 Physical Exam General Appearance: No Acute Distress, Comfortable Eyes Eye Exam: Pupils Equal Throat Throat Exam: Oral Mucosa [place] & Moist Neck Neck Exam: Neck Supple Pulmonary Resp Exam: No Distress, Crackles, Rhonchi, Decreased Bases, Diminished Breath Sounds Cardiology CV Exam: Regular, Normal Sinus Rhythm Gastrointestinal/Abdomen GI Exam: Soft, Non-Tender, Bowel Sounds Present, Distended Extremeties Extremities Exam: Trace Edema Neurologic Neuro Exam: Alert, Awake, Oriented Psychiatric Psych Exam: Appropriate Responses Assessment/Plan Assessment Summary: RAN/Acute Renal Failure, CHF, Hypertension, CKD Stage III Problem List: (1) Acute on chronic diastolic (congestive) heart failure (2) DM (diabetes mellitus) (3) HTN (hypertension) (4) A-fib (5) Anemia (6) Acute on chronic kidney disease, stage 3 Plan Patient has been non oliguric. Creatinine was improving yesterday. Has stage 3 chronic kidney disease, most likely due to Hypertensive or renovascular disease. BP is stable. on Lasix once a day. Urine out put is good. Creatinine is same, and K is normal. Avoid Nephrotoxins. Problem Qualifiers (1) DM (diabetes mellitus): Qualified Code: E11.8 - Type 2 diabetes mellitus with complication, with long- term current use of insulin (2) HTN (hypertension): Qualified Code: I10 - Essential hypertension Sunil Maya MD February 01, 2017 16:11
[2017-02-01] MEDS ORDERED: cloNIDine HCL 0.1 MG TAB PO PRN (18:00)
[2017-02-01] MEDS ORDERED: SPIRONOLACTONE 25 MG TAB PO SCH (18:00)
[2017-02-01] MEDS: BISACODYL 10 MG SUPP RECTAL PRN (18:04)
--- NOTE | 2017-02-01 18:13 | HHI.PR ---
Subjective Remarks Patient states abdominal pain in LUQ much improved 11/20 denies nausea/vomiting or abdominal pain Creatinine stable vital signs stable Objective Vitals Vital Signs Date Time Temp Pulse Resp B/P Pulse Ox O2 Delivery O2 Flow Rate FiO2 02/01/17 16:21 98.6 65 19 175/85 98 02/01/17 12:09 98.6 65 19 159/76 98 02/01/17 08:05 98.7 63 18 144/76 96 02/01/17 04:00 99.5 64 18 140/63 94 02/01/17 00:00 99.5 61 18 158/77 94 01/31/17 20:55 2.00 01/31/17 20:00 98.6 82 18 129/60 96 01/31/17 19:32 61 I/O 01/31/17 01/31/17 01/31/17 02/01/17 02/01/17 02/01/17 06:59 14:59 22:59 06:59 14:59 22:59 Intake Total 2 ml 480 ml 350 ml 244 ml 840 ml Output Total 400 ml 300 ml 500 ml 300 ml 1000 ml Balance -398 ml 180 ml -150 ml -56 ml -160 ml Intake Oral 480 ml 240 ml 240 ml 840 ml IV Total 2 ml 110 ml 4 ml Output Urine Total 400 ml 300 ml 500 ml 300 ml 1000 ml # Bowel Movements 0 0 0 0 Result Diagram: 02/01/1782202/01/17822 Imaging Last Impressions Spleen Ultrasound 01/25/17 0000 Signed Impressions: Service Date/Time: Wednesday, January 25, 2017 09:00 - CONCLUSION: 1. Mild enlargement of the spleen. 2. Left pleural effusion. Casimiro Goss MD Chest Ultrasound 01/25/17 0000 Signed Impressions: Service Date/Time: Wednesday, January 25, 2017 14:18 - CONCLUSION: Pleural effusion as described above Joni Goss MD FACR Chest X-Ray [id number]/22/[id number] Signed Impressions: Service Date/Time: Sunday, January 22, 2017 19:17 - CONCLUSION: Edema and bilateral effusions. Vin Perez MD Abdomen/Pelvis CT [id number]/22/171849 Signed Impressions: Service Date/Time: Sunday, January 22, 2017 20:27 - CONCLUSION: Effusions and consolidative changes in the lung bases. Abnormal liver appearance splenomegaly and ascites. Vin Perez MD Objective Remarks GENERAL: AAOx3, no acute distress. Sitting at bedside in chair, smiling. SKIN: Warm and dry. HEAD: Normocephalic. EYES: No scleral icterus. No injection or drainage. NECK: Supple, trachea midline. No JVD or lymphadenopathy. CARDIOVASCULAR: Regular rate and rhythm without murmurs, gallops, or rubs. RESPIRATORY: Breath sounds decrease bilaterally. No accessory muscle use. GASTROINTESTINAL: Abdomen soft, mildly tender to palpation. Upper quadrant. Nondistended. Bowel sounds present. MUSCULOSKELETAL: No cyanosis, +1 edema of bilateral lower extremity edema. BACK: Nontender without obvious deformity. No CVA tenderness. Procedures sp Liver biopsy. Medications and IVs Current Medications Medications (Trade) Dose Ordered Sig/Herb Route Start Time Stop Time Status Last Admin (D50w (Vial) Inj) 25 ml UNSCH PRN IV PUSH 01/22/17 21:30 Glucagon 1 mg 1 mg UNSCH PRN OTHER 01/22/17 21:30 (Maxipime Inj/NS Inj) 100 ml @ 200 mls/hr Q12H IV 01/23/17 09:00 02/01/17 09:02 (NS Flush) 2 ml UNSCH PRN IV FLUSH 01/22/17 21:30 01/30/17 03:13 (NS Flush) 2 ml BID IV FLUSH 01/23/17 09:00 02/01/17 09:12 (Zofran Inj) 4 mg Q6H PRN IVP 01/22/17 21:30 01/29/17 22:35 (Dulcolax Supp) 10 mg DAILY PRN RECTAL 01/22/17 21:30 01/27/17 08:49 (Tylenol) 650 mg Q6H PRN PO 01/22/17 21:30 01/23/17 11:11 (Morphine Inj) 2 mg Q3H PRN IV 01/22/17 21:30 02/01/17 17:11 (Roxicodone) 5 mg Q4H PRN PO 01/22/17 21:30 02/01/17 13:58 (Ecotrin Ec) 81 mg DAILY PO 01/23/17 09:00 02/01/17 09:01 (Lipitor) 40 mg HS PO 01/23/17 21:00 01/28/17 21:13 (Proscar) 5 mg HS PO 01/23/17 21:00 01/31/17 21:15 (Folate) 1 mg BID PO 01/23/17 09:00 02/01/17 09:00 (Mag-Ox) 400 mg DAILY PO 01/23/17 09:00 02/01/17 09:00 (Protonix) 20 mg DAILYAC PO 01/23/17 08:00 02/01/17 09:01 (Flomax) 0.4 mg HS PO 01/22/17 21:45 01/31/17 21:16 (Ambien) 10 mg HS PRN PO 01/22/17 21:45 (Prograf) 2 mg BID PO 01/24/17 21:00 02/01/17 09:01 (Betapace) 80 mg Q12HR PO 01/30/17 09:00 02/01/17 09:00 (Xanax) 0.5 mg Q8H PRN PO 01/30/17 14:15 01/30/17 14:24 (Megace Liq) 400 mg DAILY PO 01/30/17 14:15 02/01/17 09:02 (Neurontin) 300 mg TID PO 01/30/17 18:00 02/01/17 17:11 (Lasix) 40 mg DAILY PO 01/30/17 20:00 02/01/17 09:01 (Levemir Inj) 10 units BID SQ 01/31/17 21:00 02/01/17 09:00 (NovoLOG INJ) 5 units TIDPC SQ 01/31/17 18:30 02/01/17 17:20 (Norvasc) 10 mg DAILY PO 02/02/17 09:00 UNV (Catapres) 0.1 mg Q6H PRN PO 02/01/17 18:00 UNV (Aldactone) 25 mg DAILY PO 02/01/17 18:00 UNV Urinary Catheter: No Vascular Central Line Catheter: No A/P Problem List: (1) Acute on chronic diastolic (congestive) heart failure ICD Code: I50.33 Status: Resolved (2) Liver transplant recipient ICD Code: Z94.4 Status: Chronic (3) Renal insufficiency ICD Code: N28.9 Status: Acute (4) Hypomagnesemia ICD Code: E83.42 Status: Resolved (5) HTN (hypertension) ICD Code: I10 Status: Chronic (6) DM (diabetes mellitus) ICD Code: E11.9 Status: Chronic (7) Community acquired bacterial pneumonia ICD Code: J15.9 Status: Resolved (8) Decreased appetite ICD Code: R63.0 Status: Resolved (9) QT prolongation ICD Code: R94.31 Status: Resolved (10) Hyperkalemia ICD Code: E87.5 Status: Acute (11) Neuropathy ICD Code: G62.9 Status: Chronic (12) Anxiety ICD Code: F41.9 Status: Chronic Assessment and Plan (1) Acute on chronic diastolic (congestive) heart failure Plan: Echo on 07/26/16 showed an ejection fraction of 50-55%, BNP 492, chest x- ray with bilateral pleural effusions, treated with Lasix IV. Patient then switched from IV to by mouth Lasix on a 2016. Continue potassium supplement daily 20 mEq. Monitor strict I's and O's, to the echo with EF 60-65%. 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 He has not followed up with [facility] in 5-10 years because of financial reasons, but states his insurance coverage has changed and he would now rather follow up with them over the [place]. Patient on chronic immunosuppressant therapy with Prograf. Home medications were continued throughout hospital stay. GI consulted. Appreciate recommendations. 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 ? Chronic rejection/autoimmune hepatitis. BILLY, ASMA, IgG pending. Follow-up GI recommendations. GI has placed a call to [facility] to discuss your biopsy findings and further management. Discussed the case with Kenisha ARTHUR from GI. States Dr Barnes will see patient. (3) Renal insufficiency Plan: Acute on chronic kidney disease stage III. BUN/creatinine worsening, Continue to hold diuretics Continue to monitor BUN/creatinine, strict I's and O's. CT abdomen and pelvis on 01/22 r/o hydronephrosis Nephrology consult appreciated. 01/31 Creatinine seems to be trending down. Down to 1.6 on 01/30. Lasix 40 mg po daily restarted. 02/01 Nephrology consult appreciated. RAN on CKD III resolved after holding diuretics. Patient now on Lasix 40 mg po daily. will resume Spironolactone. (4) Hypomagnesemia Plan: Magnesium 1.5 status post replacements 2. Patient now with normal magnesium levels. Continue to monitor magnesium. (5) HTN (hypertension) Plan: Blood pressure for the most part remained stable throughout hospitalization. 02/01 of pressure and stable with systolic blood pressure in the 170s. I will increase amlodipine to 10 mg by mouth daily and give 5 mg by mouth once. I will also place patient on clonidine 0.1 mg by mouth every 8 hours as needed for cerebral pressure more than 160. (6) DM (diabetes mellitus) Plan: A1c 7.3. Diabetes mellitus initially well controlled, patient home insulin held on admission and patient's blood sugar controlled with SSI with insulin NovoLog and Accu-Cheks monitored. 01/31 home insulin held initially since patient not eating well and blood sugars stable. Now patient's appetite [facility] improved and blood sugars are uncontrolled in the 300's. So the patient on basal bolus therapy with insulin Levemir 10 mg subcutaneously twice a day and insulin NovoLog 5 units 3 times a day with meals. Continue coverage with SSI with insulin NovoLog and continue to monitor Accu-Cheks. (7) Community acquired bacterial pneumonia Plan: CT abdomen and pelvis showed consolidative changes bilateral bases. Continue cefepime, azithromycin discontinued due to prolonged QTC.. (8) Decreased appetite Plan: Likely secondary to hepatitis and liver cirrhosis. 01/30 Dietitian consulted, appreciate recommendations. Started on Glucerna daily. Changed diet to 2500 ADA diet. Appetite improved with Megace. Continue. (9) QT prolongation Plan: EKG obtained on 01/28/17 and reviewed by me showed ectopic atrial bradycardia with Q-t prolongation with a QTC of 528. I will discontinue sotalol and azithromycin which both can prolong QT. I will consult cardiology. The patient follows up with Dr. Lovell. Case discussed with Dr. Garcia who evaluated patient. He recommended resuming sotalol at 80 mg by mouth twice a day. 01/30 EKG shows possible ectopic atrial bradycardia and a QTC of 470. (10) Hyperkalemia Plan: Likely secondary to decreased renal function. Patient had an elevated potassium 5.8 on 01/29/17, status post treatment with 10 units of regular insulin and Kayexalate. Potassium supplementation was discontinued. 01/30 potassium 5.4 today. I will give another 2 units of regular IV insulin and Kayexalate. 02/01 Resolved after treatment with IV isnulin and Kayexalate. Will add potassium restriction to patient's diet. Discharge Planning Possible DC in am pending GI clearance and BP control. Problem Qualifiers (1) HTN (hypertension): Qualified Code: I10 - Essential hypertension (2) DM (diabetes mellitus): Qualified Code: E11.8 - Type 2 diabetes mellitus with complication, with long- term current use of insulin Reji Garrison MD February 01, 2017 18:13
[2017-02-01] MEDS ORDERED: amLODIPine BESYLATE 5 MG TAB PO ONE (18:15)
--- NOTE | 2017-02-01 21:43 | HHI.GIFU ---
Subjective Remarks No new complaints Objective Vitals I&O Vital Signs Date Time Temp Pulse Resp B/P Pulse Ox O2 Delivery O2 Flow Rate FiO2 02/01/17 16:21 98.6 65 19 175/85 98 02/01/17 12:09 98.6 65 19 159/76 98 02/01/17 08:05 98.7 63 18 144/76 96 02/01/17 08:00 78 02/01/17 08:00 96 Nasal Cannula 2.00 21 02/01/17 04:00 99.5 64 18 140/63 94 02/01/17 00:00 99.5 61 18 158/77 94 I/O 01/31/17 01/31/17 01/31/17 02/01/17 02/01/17 02/01/17 07:00 15:00 23:00 07:00 15:00 23:00 Intake Total 2 ml 480 ml 350 ml 244 ml 840 ml Output Total 400 ml 300 ml 500 ml 300 ml 1000 ml Balance -398 ml 180 ml -150 ml -56 ml -160 ml Intake Oral 480 ml 240 ml 240 ml 840 ml IV Total 2 ml 110 ml 4 ml Output Urine Total 400 ml 300 ml 500 ml 300 ml 1000 ml # Bowel Movements 0 0 0 0 Laboratory Laboratory Tests Test 02/01/17 08:23 White Blood Count 7.9 Red Blood Count 3.19 Hemoglobin 8.7 Hematocrit 27.0 Mean Corpuscular Volume 84.8 Mean Corpuscular Hemoglobin 27.3 Mean Corpuscular Hemoglobin 32.2 Concent Red Cell Distribution Width 15.5 Platelet Count 140 Mean Platelet Volume 8.5 Neutrophils (%) (Auto) 59.7 Lymphocytes (%) (Auto) 27.8 Monocytes (%) (Auto) 9.5 Eosinophils (%) (Auto) 2.6 Basophils (%) (Auto) 0.4 Neutrophils # (Auto) 4.7 Lymphocytes # (Auto) 2.2 Monocytes # (Auto) 0.7 Eosinophils # (Auto) 0.2 Basophils # (Auto) 0.0 CBC Comment DIFF FINAL Differential Comment Sodium Level 140 Potassium Level 5.1 Chloride Level 107 Carbon Dioxide Level 29.2 Anion Gap 4 Blood Urea Nitrogen 34 Creatinine 1.69 Estimat Glomerular Filtration 41 Rate Random Glucose 164 Calcium Level 8.3 Phosphorus Level 2.5 Magnesium Level 2.0 Total Bilirubin 0.4 Aspartate Amino Transf 30 (AST/SGOT) Alanine Aminotransferase 14 (ALT/SGPT) Alkaline Phosphatase 117 Total Protein 8.6 Albumin 1.9 Physical Exam HEENT: Normocephalic; atraumatic CHEST: Resp even/mildly labored, diminished. CARDIAC: RRR ABDOMEN: Soft, nondistended, nontender; hepatosplenomegaly; bowel sounds are present in all four quadrants. EXTREMITIES: No clubbing, cyanosis, or edema. SKIN: Normal; no rash; no jaundice. [employer]: No focal deficits; alert and oriented times three. Assessment and Plan Plan ASSESSMENT: - Liver cirrhosis, with hx of orthotopic liver transplant for liver cirrhosis secondary to primary sclerosing cholangitis in 2001 at the [facility] in [place] and current liver cirrhosis and thrombocytopenia. He has not followed up with [facility] in 5-10 years because of financial reasons, but states his insurance coverage has changed and he would now rather follow up with them over the [place]. However, he does state that he has an outstanding balance from 2007 and is unsure if they will accept him. Abdomen/Pelvis CT (01/22/17)----> Effusions and consolidative changes in the lung bases. Abnormal liver appearance splenomegaly and ascites. OUTPT RECORDS: US Liver (01/01/17)---> cirrhotic changes in the liver. There is also enlargement of the spleen which could be seen with portal hypertension, ascites is seen in the right upper abdomen, bilateral pleural effusions, increased echogenicity to the right kidney which could suggest medical renal disease. 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 ? Chronic rejection/autoimmune hepatitis. BILLY, ASMA, IgG pending. Call placed to [facility], Tiana Lo (monitoring coordinator) . Message left for her to return call to discuss liver biopsy, further recommendations, and to establish follow up with patient. Prograf. MELD 11. - Anemia. EGD/Colonoscopy (10/30/16)----> gastritis was found in the gastric antrum, sessile polyp ranging between 3-5 mm in size was found in the gastric antrum; biopsy was performed retroflexed views revealed no abnormalities; normal colonoscopy, retroflex views revealed internal grade 2 hemorrhoids, digital rectal exam was performed and revealed medium external hemorrhoids. Recommended follow-up in 6 months. Pathology revealed a hyperplastic polyp in the antrum of the stomach, negative for Helicobacter pylori by GMS. No active bleeding. 9.0/26.9. - Ascites. Lasix. - Thrombocytopenia. Plt 155. No active bleeding. - GERD. PPI. - CHF Exacerbation. Lasix, per primary - Community acquired pneumonia. Abx per primary. - RAN, Anxiety, Depression, HTN, PVD, DM, Hyperlipidemia, Vitamin D Deficiency. Per primary. PLAN: - Low salt diet - Cont. Prograf - Cont. PPI - Cont. Lasix - Prograf level -Liver biopsy without any evidence of clear rejection -Autoimmune markers lost far are negative -I'm not sure of the significance of the plasma infiltrate on pathology but I doubt that it would be of any significance at this point in time -Patient will need to follow-up with a transplant center as an outpatient also follow-up with GI -[facility] for discharge from a GI standpoint Pasha Barnes MD February 01, 2017 21:43
[2017-02-01] MEDS: TAMSULOSIN HCL 0.4 MG CAP PO SCH (22:11)
[2017-02-01] MEDS: ATORVASTATIN 40 MG TAB PO SCH (22:11)
[2017-02-01] MEDS: FINASTERIDE 5 MG TAB PO SCH (22:11)
[2017-02-01 23:53] LABS: IGG SERUM-IGG SUBCLASSES 3887 mg/dL (694-1618); IGG SUBCLASSES 1 2359 mg/dL (382-929); IGG SUBCLASSES 2 1221 mg/dL (241-700); IGG SUBCLASSES 3 57 mg/dL (22-178); IGG SUBCLASSES 4 GREATER THAN 300.0 mg/dL (4-86)
[2017-02-02 00:50] VITALS: BP 169/81; PULSE 64; RESP 18; TEMP 98.9; O2SAT 98
[2017-02-02 04:00] VITALS: BP 144/69; PULSE 64; RESP 18; TEMP 98.2; O2SAT 99
[2017-02-02] MEDS: MORPHINE SULFATE 4 MG/ML INJ IV PRN ×2 (05:15→13:01)
[2017-02-02] MEDS: INSULIN ASPART SUPPLEMENTAL SCALE SQ SCH ×2 (06:51→11:00)
[2017-02-02 08:00] VITALS: BP 161/79; PULSE 63; PULSE 85; RESP 12; TEMP 98.8; O2SAT 98
[2017-02-02 08:50] LABS: HEMATOCRIT 27.5 % (39.0-51.0); MEAN CELL VOLUME 84.2 FL (80.0-100.0); MEAN CORPUSCULAR HEMOGLOBIN 27.3 PG (27.0-34.0); MEAN CORPUSCULAR HGB CONC 32.4 % (32.0-36.0); PLATELET COUNT 139 TH/MM3 (150-450); RED BLOOD COUNT 3.27 MIL/MM3 (4.50-5.90); RED CELL DISTRIBUTION WIDTH 15.6 % (11.6-17.2); REVIEW FLAG FINAL; WHITE BLOOD COUNT 8.3 TH/MM3 (4.0-11.0)
[2017-02-02] MEDS ORDERED: amLODIPine BESYLATE 5 MG TAB PO SCH (09:00)
[2017-02-02] MEDS: MEGESTROL ACETATE SUSP 400 MG/10 ML CUP PO SCH (09:00)
[2017-02-02 09:22] LABS: BICARBONATE 29.9 MEQ/L (21.0-32.0); POTASSIUM 5.1 MEQ/L (3.5-5.1)
[2017-02-02] MEDS: SOTALOL HCL 80 MG TAB PO SCH (09:30)
[2017-02-02] MEDS: FOLIC ACID 1 MG TAB PO SCH (09:30)
[2017-02-02] MEDS: GABAPENTIN 300 MG CAP PO SCH ×2 (09:30→12:49)
[2017-02-02] MEDS: MAGNESIUM OXIDE 400 MG TAB PO SCH (09:31)
[2017-02-02] MEDS: ASPIRIN EC 81 MG TABEC PO SCH (09:31)
[2017-02-02] MEDS: TACROLIMUS 1 MG CAP PO SCH (09:31)
[2017-02-02] MEDS: PANTOPRAZOLE SOD 20 MG DELAYED RELEASE TAB PO SCH (09:31)
[2017-02-02] MEDS: FUROSEMIDE 40 MG TAB PO SCH (09:31)
[2017-02-02] MEDS: CEFEPIME INJ 1,000 MG in SODIUM CHLORIDE 0.9% INJ 100 ML IV SCH (09:36)
[2017-02-02] MEDS: INSULIN ASPART 1,000 UNITS/10 ML VIAL SQ SCH ×2 (09:59→13:10)
[2017-02-02] MEDS: INSULIN DETEMIR 100 UNITS/ML VIAL SQ SCH (10:00)
--- NOTE | 2017-02-02 10:09 | PD.PN.STU ---
Subjective Remarks No complaints Denies SOB, CP, n/v Objective Vitals GENERAL: AAOx3, no acute distress. Sitting at bedside in chair, smiling. SKIN: Warm and dry. HEAD: Normocephalic. EYES: No scleral icterus. No injection or drainage. NECK: Supple, trachea midline. No JVD or lymphadenopathy. CARDIOVASCULAR: Regular rate and rhythm without murmurs, gallops, or rubs. RESPIRATORY: Breath sounds decrease bilaterally in lower lung. No accessory muscle use. GASTROINTESTINAL: Bowel sounds present. Abdomen soft, nondistended. Nontender to palpation. Vital Signs Date Time Temp Pulse Resp B/P Pulse Ox O2 Delivery O2 Flow Rate FiO2 02/02/17 08:00 98.8 63 12 161/79 98 02/02/17 04:00 98.2 64 18 144/69 99 02/02/17 00:50 98.9 64 18 169/81 98 02/01/17 21:40 Nasal Cannula 2.00 02/01/17 20:00 99.4 67 18 142/66 94 02/01/17 16:21 98.6 65 19 175/85 98 02/01/17 12:09 98.6 65 19 159/76 98 I/O 02/01/17 02/01/17 02/01/17 02/02/17 02/02/17 02/02/17 07:00 15:00 23:00 07:00 15:00 23:00 Intake Total 244 ml 840 ml 100 ml Output Total 300 ml 1000 ml 1200 ml Balance -56 ml -160 ml 100 ml -1200 ml Intake Oral 240 ml 840 ml IV Total 4 ml 100 ml Output Urine Total 300 ml 1000 ml 1200 ml # Voids 2 # Bowel Movements 0 0 0 0 Result Diagram: 02/02/17 0804 02/02/17 0804 A/P Assessment and Plan (1) Acute on chronic diastolic (congestive) heart failure ICD Code: I50.33 Status: Resolved (2) Liver transplant recipient ICD Code: Z94.4 Status: Chronic (3) Renal insufficiency ICD Code: N28.9 Status: Improving (4) Hypomagnesemia ICD Code: E83.42 Status: Resolved (5) HTN (hypertension) ICD Code: I10 Status: Chronic (6) DM (diabetes mellitus) ICD Code: E11.9 Status: Chronic (7) Community acquired bacterial pneumonia ICD Code: J15.9 Status: Resolved (8) Decreased appetite ICD Code: R63.0 Status: Resolved (9) QT prolongation ICD Code: R94.31 Status: Resolved (10) Hyperkalemia ICD Code: E87.5 Status: Resolved (11) Neuropathy ICD Code: G62.9 Status: Chronic (12) Anxiety ICD Code: F41.9 Status: Chronic Assessment and Plan (1) Acute on chronic diastolic (congestive) heart failure Plan: Echo on 07/26/16 showed an ejection fraction of 50-55%, BNP 492, chest x- ray with bilateral pleural effusions, treated with Lasix IV. Dc'ed potassium supplement. Monitor strict I's and O's, to the echo with EF 60-65%. On Lasix (2) Liver transplant recipient Plan: Liver cirrhosis, with hx of orthotopic liver transplant for liver cirrhosis secondary to primary sclerosing cholangitis in [address] [facility] in [place] and current liver cirrhosis and thrombocytopenia. He has not followed up with [facility] in 5-10 years because of financial reasons, but states his insurance coverage has changed and he would now rather follow up with them over the [place]. Patient on chronic immunosuppressant therapy with Prograf. Home medications were continued throughout hospital stay. GI consulted. Appreciate recommendations. 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 ? Chronic rejection/autoimmune hepatitis. BILLY, ASMA, IgG pending. Follow-up GI recommendations. GI has placed a call to [facility] to discuss your biopsy findings and further management. Discussed the case with Kenisha ARTHUR from GI. States Dr Barnes will see patient. (3) Renal insufficiency Plan: Acute on chronic kidney disease stage III. BUN/creatinine worsening, Continue to hold diuretics Continue to monitor BUN/creatinine, strict I's and O's. CT abdomen and pelvis on 01/22 r/o hydronephrosis Nephrology consult appreciated. 01/31 Creatinine seems to be trending down. Down to 1.6 on 01/30. Lasix 40 mg po daily restarted. 02/01 Nephrology consult appreciated. RAN on CKD III resolved after holding diuretics. Patient now on Lasix 40 mg po daily. will resume Spironolactone. 02/02 Seems to be tolerating Spironolactone well. RAN improving (4) Hypomagnesemia Plan: Magnesium 1.5 status post replacements 2. Patient now with normal magnesium levels. Continue to monitor magnesium. (5) HTN (hypertension) Plan: Blood pressure for the most part remained stable throughout hospitalization. 02/01 of pressure and stable with systolic blood pressure in the 170s. I will increase amlodipine to 10 mg by mouth daily and give 5 mg by mouth once. I will also place patient on clonidine 0.1 mg by mouth every 8 hours as needed for cerebral pressure more than 160. 02/02 BP minimally elevated this morning prior to receiving medications (6) DM (diabetes mellitus) Plan: A1c 7.3. Diabetes mellitus initially well controlled, patient home insulin held on admission and patient's blood sugar controlled with SSI with insulin NovoLog and Accu-Cheks monitored. 01/31 home insulin held initially since patient not eating well and blood sugars stable. Now patient's appetite [facility] improved and blood sugars are uncontrolled in the 300's. So the patient on basal bolus therapy with insulin Levemir 10 mg subcutaneously twice a day and insulin NovoLog 5 units 3 times a day with meals. Continue coverage with SSI with insulin NovoLog and continue to monitor Accu-Cheks. (7) Community acquired bacterial pneumonia Plan: resolved (8) Decreased appetite Plan: Likely secondary to hepatitis and liver cirrhosis. 01/30 Dietitian consulted, appreciate recommendations. Started on Glucerna daily. Changed diet to 2500 ADA diet. Appetite improved with Megace. Continue. (9) QT prolongation Plan: EKG obtained on 01/28/17 and reviewed by me showed ectopic atrial bradycardia with Q-t prolongation with a QTC of 528. I will discontinue sotalol and azithromycin which both can prolong QT. I will consult cardiology. The patient follows up with Dr. Lovell. Case discussed with Dr. Garcia who evaluated patient. He recommended resuming sotalol at 80 mg by mouth twice a day. 01/30 EKG shows possible ectopic atrial bradycardia and a QTC of 470. (10) Hyperkalemia Plan: Likely secondary to decreased renal function. Patient had an elevated potassium 5.8 on 01/29/17, status post treatment with 10 units of regular insulin and Kayexalate. Potassium supplementation was discontinued. 01/30 potassium 5.4 today. I will give another 2 units of regular IV insulin and Kayexalate. 02/01 Resolved after treatment with IV isnulin and Kayexalate. Will add potassium restriction to patient's diet. Discharge Planning GI cleared and BP well controlled. Ok to Saad Garzon February 02, 2017 10:09
[2017-02-02 10:25] VITALS: O2SAT 98
[2017-02-02 12:00] VITALS: BP 133/63; PULSE 60; RESP 16; TEMP 98.3; O2SAT 97
[2017-02-02] MEDS ORDERED: AMBI10TA PO (13:31)
[2017-02-02] MEDS ORDERED: AMLO5 PO (13:31)
[2017-02-02] MEDS ORDERED: IPRASOL NEB (13:31)
[2017-02-02] MEDS ORDERED: ALPR.5 PO (13:31)
[2017-02-02] MEDS ORDERED: SOTA80 PO (13:31)
[2017-02-02] MEDS ORDERED: MEGE40SU PO (13:31)
[2017-02-02] MEDS ORDERED: NEUR300C PO (13:31)
[2017-02-02] MEDS ORDERED: FURO40TA PO (13:31)
[2017-02-02] MEDS ORDERED: ATOR40TA16 PO (13:31)
--- NOTE | 2017-02-02 13:32 | HHI.DCPOC ---
Discharge Care Plan Diagnosis: (1) History of liver transplant (2) Liver transplant recipient (3) QT prolongation (4) Acute on chronic diastolic (congestive) heart failure (5) Community acquired bacterial pneumonia (6) Decreased appetite (7) HTN (hypertension) (8) Neuropathy (9) Anxiety (10) Acute on chronic kidney disease, stage 3 (11) A-fib (12) Anemia (13) Hyperkalemia (14) Hypomagnesemia (15) DM (diabetes mellitus) Goals to Promote Your Health * To prevent worsening of your condition and complications * To maintain your health at the optimal level Directions to Meet Your Goals Take your medications as prescribed Follow your dietary instruction Follow activity as directed Keep your appointments as scheduled Take your immunizations and boosters as scheduled If your symptoms worsen call your PCP, if no PCP go to Urgent Care Center or Emergency Room Smoking is Dangerous to Your Health. Avoid second hand smoke Call the 24-hour hour crisis hotline for domestic abuse at Reji Garrison MD February 02, 2017 13:32
[2017-02-02] MEDS ORDERED: LEVEMIR SQ (13:46)
[2017-02-02] MEDS ORDERED: NOVOLOGP2 SQ ×2 (13:46)
--- NOTE | 2017-02-02 14:09 | HHI.DS ---
Discharge Summary Admission Date January 22, 2017 at 21:26 Discharge Date: February 02, 2017 Admitting Diagnosis CHF exacerbation, pneumonia (1) Acute on chronic diastolic (congestive) heart failure ICD Code: I50.33 Diagnosis: Principal (2) Liver transplant recipient ICD Code: Z94.4 Diagnosis: Principal (3) Hypomagnesemia ICD Code: E83.42 Diagnosis: Principal (4) HTN (hypertension) ICD Code: I10 Diagnosis: Principal (5) Community acquired bacterial pneumonia ICD Code: J15.9 Diagnosis: Principal (6) Decreased appetite ICD Code: R63.0 Diagnosis: Principal (7) QT prolongation ICD Code: R94.31 Diagnosis: Principal (8) Hyperkalemia ICD Code: E87.5 Diagnosis: Principal (9) Neuropathy ICD Code: G62.9 Diagnosis: Principal (10) Anxiety ICD Code: F41.9 Diagnosis: Principal (11) Splenomegaly ICD Code: R16.1 Diagnosis: Principal (12) CKD (chronic kidney disease), stage III ICD Code: N18.3 Diagnosis: Principal (13) RAN (acute kidney injury) ICD Code: N17.9 Diagnosis: Principal (14) Hepatosplenomegaly ICD Code: R16.2 Diagnosis: Principal (15) Immunosuppression ICD Code: D89.9 Diagnosis: Principal (16) Atrial fibrillation ICD Code: I48.91 Diagnosis: Secondary (17) History of liver transplant ICD Code: Z94.4 Diagnosis: Principal (18) Hyperglycemia due to type 2 diabetes mellitus ICD Code: E11.65 Diagnosis: Principal Procedures sp Liver biopsy. 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 Denies fever, chills or chest pain. On arrival , BP 150/73, HR 58, O2 sat 96% on RA, Afebrile. CBC at baseline. Creatinine 1.68, previously 1.71 on 12/29/16. BNP 492. Trop 0.02, EKG w/ no acute ischemia. Mg 1.3 s/p replacement in ER. CXR with edema and bilateral effusions. CT Abd/Pelvis w/ effusions and consolidative changes in the lung bases, abnormal liver, splenomegaly and ascites. S/p Lasix IV in ER. CBC/BMP: 02/02/17 0804 02/02/17 0804 Significant Findings Laboratory Tests Test 01/31/17 02/01/17 02/02/17 18:21 08:23 08:04 Potassium Level 5.4 MEQ/L (3.5-5.1) Blood Urea Nitrogen 33 MG/DL (7-18) 34 MG/DL (7-18) 34 MG/DL (7-18) Creatinine 1.69 MG/DL 1.69 MG/DL 1.57 MG/DL (0.60-1.30) (0.60-1.30) (0.60-1.30) Estimat Glomerular Filtration 41 ML/MIN (>89) 41 ML/MIN (>89) 44 ML/MIN (>89) Rate Random Glucose 208 MG/DL 164 MG/DL 149 MG/DL (74-106) (74-106) (74-106) Calcium Level 8.2 MG/DL 8.3 MG/DL (8.5-10.1) (8.5-10.1) Red Blood Count 3.19 MIL/MM3 3.27 MIL/MM3 (4.50-5.90) (4.50-5.90) Hemoglobin 8.7 GM/DL 8.9 GM/DL (13.0-17.0) (13.0-17.0) Hematocrit 27.0 % 27.5 % (39.0-51.0) (39.0-51.0) Platelet Count 140 TH/MM3 139 TH/MM3 (150-450) (150-450) Monocytes (%) (Auto) 9.5 % (0.0-8.0) Anion Gap 4 MEQ/L (5-15) 3 MEQ/L (5-15) Total Protein 8.6 GM/DL (6.4-8.2) Albumin 1.9 GM/DL (3.4-5.0) Imaging Last Impressions Spleen Ultrasound 01/25/17 0000 Signed Impressions: Service Date/Time: Wednesday, January 25, 2017 09:00 - CONCLUSION: 1. Mild enlargement of the spleen. 2. Left pleural effusion. Casimiro Goss MD Chest Ultrasound 01/25/17 0000 Signed Impressions: Service Date/Time: Wednesday, January 25, 2017 14:18 - CONCLUSION: Pleural effusion as described above Joni Goss MD FACR Chest X-Ray [id number]/22/[id number] Signed Impressions: Service Date/Time: Sunday, January 22, 2017 19:17 - CONCLUSION: Edema and bilateral effusions. Vin Perez MD Abdomen/Pelvis CT [id number]/22/171849 Signed Impressions: Service Date/Time: Sunday, January 22, 2017 20:27 - CONCLUSION: Effusions and consolidative changes in the lung bases. Abnormal liver appearance splenomegaly and ascites. Vin Perez MD PE at Discharge GENERAL: AAOx3, no acute distress. Sitting at bedside in chair, smiling. SKIN: Warm and dry. HEAD: Normocephalic. EYES: No scleral icterus. No injection or drainage. NECK: Supple, trachea midline. No JVD or lymphadenopathy. CARDIOVASCULAR: Regular rate and rhythm without murmurs, gallops, or rubs. RESPIRATORY: Breath sounds decrease bilaterally. No accessory muscle use. GASTROINTESTINAL: Abdomen soft, mildly tender to palpation. Upper quadrant. Nondistended. Bowel sounds present. MUSCULOSKELETAL: No cyanosis, +1 edema of bilateral lower extremity edema. BACK: Nontender without obvious deformity. No CVA tenderness. Pt update on day of discharge Patient states abdominal pain in LUQ is still present, constant 3/10 but much improved, appetite is better, denies fevers, chills, denies cp/sob. Hospital Course (1) Acute on chronic diastolic (congestive) heart failure Echo on 07/26/16 showed an ejection fraction of 50-55%, BNP 492, chest x-ray with bilateral pleural effusions, treated with Lasix IV. Patient then switched from IV to by mouth Lasix on a 2016. Continue potassium supplement daily 20 mEq. Monitor strict I's and O's, to the echo with EF 60-65%. Continue to hold Lasix. 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 He has not followed up with [facility] in 5-10 years because of financial reasons, but states his insurance coverage has changed and he would now rather follow up with them over the [place]. Patient on chronic immunosuppressant therapy with Prograf. Home medications were continued throughout hospital stay. GI consulted. Appreciate recommendations. 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 ? Chronic rejection/autoimmune hepatitis. \ As per Dr. Barnes . Biopsy without any evidence of clear rejection. Autoimmune markers so far negative. He is not sure of the significance of the plasma infiltrate on pathology but he doubts that he would be insignificant at this point on time. Patient will need to follow-up with the transplant center and [facility] as an outpatient and also follow-up with GI. Patient cleared for discharge by gastroenterology. (3) RAN on CKD stage III Acute on chronic kidney disease stage III. Initially BUN/creatinine worsening, therefore diuretics were held, after which BUN/creatinine started to improve. CT abdomen and pelvis on 01/22 ruled out hydronephrosis. Nephrology consulted. BUN/creatinine as well as a stenosis monitored throughout hospital stay. 01/31 Creatinine seems to be trending down. Down to 1.6 on 01/30. Lasix 40 mg po daily restarted. spironolactone resumed 02/01. (4) Hypomagnesemia Magnesium 1.5 status post replacements 2. Patient now with normal magnesium levels. Continue to monitor magnesium. (5) HTN (hypertension) Blood pressure for the most part remained stable throughout hospitalization. However patient noted to have elevated blood pressure on 02/01 with systolic blood pressure in the 170s. Amlodipine increased to 10 mg by mouth daily. Patient also placed on clonidine 0.1 mg by mouth every 8 hours as needed for systolic blood pressure more than 160. Blood pressure improved prior to discharge. (6) DM (diabetes mellitus) A1c 7.3. Diabetes mellitus initially well controlled, patient home insulin held on admission and patient's blood sugar controlled with SSI with insulin NovoLog and Accu-Cheks monitored. 01/31 home insulin held initially since patient not eating well and blood sugars stable. Now patient's appetite [facility] improved and blood sugars are uncontrolled in the 300's. Started patient on basal bolus therapy with insulin Levemir subcutaneously twice a day and insulin NovoLog 3 times a day with meals. Provided coverage with SSI with insulin NovoLog and continue to monitor Accu- Cheks. (7) Community acquired bacterial pneumonia CT abdomen and pelvis showed consolidative changes bilateral bases. SP cefepime , azithromycin discontinued due to prolonged QTC. (8) Decreased appetite Likely secondary to hepatitis and liver cirrhosis. 01/30 Dietitian consulted, appreciate recommendations. Started on Glucerna daily. Changed diet to 2200 ADA diet. Appetite improved with Megace. (9) QT prolongation EKG obtained on 01/28/17 and reviewed by me showed ectopic atrial bradycardia with Q-t prolongation with a QTC of 528. I will discontinue sotalol and azithromycin which both can prolong QT. I will consult cardiology. The patient follows up with Dr. Lovell. Case discussed with Dr. Garcia who evaluated patient. He recommended resuming sotalol at 80 mg by mouth twice a day. 01/30 EKG shows possible ectopic atrial bradycardia and a QTC of 470. (10) Hyperkalemia Likely secondary to decreased renal function. Patient had an elevated potassium 5.8 on 01/29/17, status post treatment with 10 units of regular insulin and Kayexalate. Potassium supplementation was discontinued. 01/30 potassium 5.4 today. I will give another 2 units of regular IV insulin and Kayexalate. 02/01 Resolved after treatment with IV isnulin and Kayexalate. Added Potassium restriction to diet. Pt Condition on Discharge: Stable Discharge Disposition: Discharge to SNF Discharge Time: > 30 minutes Discharge Instructions DIET: Follow Instructions for: Diabetic Diet Additional Diet Instructions: Give Glucerna shake daily 2200 ADA Diet Potassium restricted diet - 40 meq Activities you can perform: Regular-No Restrictions Activities to Avoid: Prolonged Standing, Strenuous Activity Other Activity Instructions: OOB with assitance only Follow up Referrals: Appointment for Follow Up - 1 Week with transplant center Cardiology - 1 Week with Mitchell Lovell MD Gastroenterology with Pasha Barnes MD Nephrology with Sunil Maya MD PCP Follow-up - 1 Week New Medications: Insulin Aspart Inj (Novolog Inj) 1,000 Unit/10 Ml Vial 2-12 UNITS SQ ACHS Max dose at bedtime (10) units; sugars less than 70,(0) units ; sugars 150-199,(2) units; sugars 200-249,(4) units; sugars 250-299,(7) units; sugars 300-349,(10) units; sugars greater than 349,(12)units Blood Sugar Management #10 Ref 0 ML Alprazolam (Xanax) 0.5 Mg Tab 0.5 MG PO Q8H PRN ANXIETY #30 TAB Amlodipine (Norvasc) 5 Mg Tab 10 MG PO DAILY Blood Pressure Management #30 TAB Atorvastatin (Atorvastatin) 40 Mg Tab 40 MG PO HS Cholesterol Management #30 TAB Furosemide (Furosemide) 40 Mg Tab 40 MG PO DAILY Shortness of Breath #30 TAB Gabapentin (Neurontin) 300 Mg Cap 300 MG PO TID neuropathy #90 CAP Insulin Aspart Inj (Novolog Inj) 1,000 Unit/10 Ml Vial 7 UNITS SQ TIDPC Blood Sugar Management #1 VIAL Insulin Detemir Inj (Levemir Inj) 1,000 unit/ 10 ML Vial 15 UNITS SQ BID Blood Sugar Management #1 VIAL Ipratropium-Albuterol Neb (Duoneb) 0.5-2.5 Mg/3 Ml Neb 1 AMPULE NEB Q2HR NEB PRN SHORTNESS OF BREATH #1 BOX Megestrol Liq (Megestrol Liq) 40 Mg/Ml Susp 400 MG PO DAILY appetite stimulant #1 BOTTLE Sotalol (Sorine) 80 Mg Tab 80 MG PO Q12HR heart rate control #62 TAB Zolpidem (Ambien) 10 Mg Tab 10 MG PO HS PRN SLEEP #31 TAB Continued Medications: Aspirin DR (Ecotrin Low Strength) 81 Mg Tabdr 81 MG PO DAILY #30 Ref 0 TAB Cholecalciferol (Vitamin D-3) 1,000 Unit Tab 1000 UNITS PO BID #30 Ref 0 TAB Finasteride (Proscar) 5 Mg Tab 5 MG PO HS Do not crush. Manage Prostate Problems #30 Ref 0 TAB Folic Acid (Folate) 1 Mg Tab 1 MG PO BID Nutritional Supplement Ref 0 TAB Magnesium (Magnesium) 250 Mg Tab 500 MG PO Q3D TAB Omeprazole (Omeprazole) 20 Mg Tab 20 MG PO DAILYAC #30 Ref 0 TAB Oxycodone (Roxicodone) 5 Mg Tab 5 MG PO Q6H PRN PAIN Ref 0 TAB Spironolactone (Spironolactone) 25 Mg Tab 25 MG PO DAILY #30 Ref 0 TAB Tacrolimus (Prograf) 1 Mg Cap 2 MG PO BID Prevent Transplant Reject #60 Ref 0 CAP Tamsulosin (Tamsulosin) 0.4 Mg Cap 0.4 MG PO HS Manage Prostate Problems #30 Ref 0 CAP Discontinued Medications: Amlodipine (Amlodipine) 5 Mg Tab 5 MG PO DAILY Blood Pressure Management #30 Ref 0 TAB Atorvastatin (Atorvastatin) 80 Mg Tab 0.5 TAB PO HS Cholesterol Management #30 Ref 0 TAB Furosemide (Lasix) 20 Mg Tab 20 MG PO BID #60 Ref 0 TAB Furosemide (Furosemide) 20 Mg Tab 20 MG PO DAILY #30 Ref 0 TAB Insulin Glargine Inj (Lantus Inj) 1,000 Unit/10 Ml Vial 5-15 UNITS SQ HS Blood Sugar Management Ref 0 VIAL Insulin Lispro (Human) Inj (Humalog Inj) 1,000 Unit/10 Ml Vial 3-12 UNITS SQ ACHS Max dose at bedtime:( )units; sugars < 70,(0)units; sugars 150-199,(2)units; sugars 200-249,(4)units; sugars 250-299,(7)units; sugars 300- 349,(10)units; sugars more than 349,(12)units. Blood Sugar Management #1 Ref 0 VIAL Sotalol (Sorine) 80 Mg Tab 120 MG PO Q12HR a-fib Days 30 Ref 0 TAB Zolpidem (Zolpidem) 10 Mg Tab 10 MG PO Q12HR PRN INSOMNIA Ref 0 TAB Zolpidem Tartrate (Zolpimist) 5 Mg/Act Spr 10 MG PO HS Reji Garrison MD February 02, 2017 14:09
[2017-02-02] MEDS ORDERED: OXYC1TAB13 PO (15:46)
== END 2017-02-02 16:20 | DRG 291 ==
LOC: NEPC 18:05 → NEDA 21:26 → N04B 22:31 → N04A 01-24 14:28
PROVIDERS: ADMIT Hospitalist; ATTEND Hospitalist
DX: I13.0 Hypertensive heart and chronic kidney disease with heart failure and stage 1 through stage 4 chronic kidney disease, or unspecified chronic kidney disease (principal); J18.9 Pneumonia, unspecified organism; K76.7 Hepatorenal syndrome; N17.9 Acute kidney failure, unspecified; T86.41 Liver transplant rejection; R18.8 Other ascites; I50.33 Acute on chronic diastolic (congestive) heart failure; K76.6 Portal hypertension; K51.90 Ulcerative colitis, unspecified, without complications; E11.51 Type 2 diabetes mellitus with diabetic peripheral angiopathy without gangrene; D69.6 Thrombocytopenia, unspecified; N18.3 Chronic kidney disease, stage 3 (moderate); E11.65 Type 2 diabetes mellitus with hyperglycemia; E83.42 Hypomagnesemia; I25.10 Atherosclerotic heart disease of native coronary artery without angina pectoris; K29.70 Gastritis, unspecified, without bleeding; I48.91 Unspecified atrial fibrillation; K21.9 Gastro-esophageal reflux disease without esophagitis; G62.9 Polyneuropathy, unspecified; E78.5 Hyperlipidemia, unspecified; E55.9 Vitamin D deficiency, unspecified; E87.6 Hypokalemia; D64.9 Anemia, unspecified; R16.2 Hepatomegaly with splenomegaly, not elsewhere classified; K75.4 Autoimmune hepatitis; E87.5 Hyperkalemia; R00.1 Bradycardia, unspecified; E11.22 Type 2 diabetes mellitus with diabetic chronic kidney disease; R63.0 Anorexia; F32.9 Major depressive disorder, single episode, unspecified; F41.9 Anxiety disorder, unspecified; K74.60 Unspecified cirrhosis of liver; Y83.0 Surgical operation with transplant of whole organ as the cause of abnormal reaction of the patient, or of later complication, without mention of misadventure at the time of the procedure; Z79.01 Long term (current) use of anticoagulants; Z79.4 Long term (current) use of insulin; Z86.14 Personal history of Methicillin resistant Staphylococcus aureus infection; Z87.891 Personal history of nicotine dependence
CPT/HCPCS: 36415; 71010; 74177; 76604; 76770; 80048; 80053; 80197; 81001; 82550; 82552; 82784; 82787; 82948; 83036; 83605; 83690; 83735; 83880; 84100; 84443; 84484; 85025; 85027; 85610; 85730; 86038; 86256; 87040; 93005; 93306; 94620; 94640; 94664; 96365; 96375; J0456; J0692; J1815; J1940; J2270; J2405; J3475; J7050; J7507; Q9967

== ENCOUNTER 2017-03-03 19:14 | Emergency (ER) | payer OTHER, MEDICARE ==
[~2017-03-03] VITALS: Ht 190.5 cm; Wt 95.0 kg
[~2017-03-03 19:14] MED LIST changes: +ALPR.5 PO; +AMBI10TA PO; +AMLO5 PO; -ATOR1TAB18 PO; +ATOR40TA16 PO; -FURO1TAB62 PO; +FURO40TA PO; -HUMALOG SQ; +IPRASOL NEB; -KETO0.5S2 RIGHT EYE; -LANTUS2P SQ; +LEVEMIR SQ; +MEGE40SU PO; +NEUR300C PO; -NEUR400C PO; +NOVOLOGP2 SQ; -OMNI1SUS RIGHT EYE; +SPIR25TA PO; -TRAZ100T5 PO; +VITA10003 PO; -ZOLP1SPR PO
[2017-03-03 19:17] VITALS: BP 122/65; PULSE 56; RESP 18; TEMP 99.8; O2SAT 99
--- NOTE | 2017-03-03 19:40 | PD ---
HPI Chief Complaint: Respiratory Symptoms Time Seen by Provider: 19:40 Travel History International Travel<30 days: No Contact w/Intl Traveler<30days: No History of Present Illness HPI 66-year-old male with a history of CHF, hypertension, CAD, atrial fibrillation, diabetes, liver transplant presents to the emergency department for evaluation of shortness of breath worsening over the last 2-3 days. Patient states that he was seen by his primary at the [facility] today who did a chest x-ray and told him that he had pneumonia and he needed to come to the emergency room. The patient states he was just discharged from [facility] days ago. States that he had a temperature of 99F today but denies any other fever. States he has midsternal aching chest pain with deep inspiration. Denies chills, cough, nausea, vomiting, lightheadedness, dizziness, abdominal pain, diarrhea. No other complaints. PFSH Past Medical History Arthritis: No Asthma: No Atrial Fibrillation: Yes (ablation) Autoimmune Disease: No Blood Disorders: No Anxiety: Yes Depression: Yes Heart Rhythm Problems: Yes (atrial fibrillation) Cancer: No Cardiac Catheterization: Yes (2007, LOOP RECORDER 2015) Cardiovascular Problems: Yes High Cholesterol: No Chemotherapy: No Chest Pain: No Congestive Heart Failure: Yes Cirrhosis: Yes (BEFORE TRANSPLANT) COPD: No Cerebrovascular Accident: No Diabetes: Yes Patient Takes Glucophage: No Diminished Hearing: No Endocrine: Yes Gastrointestinal Disorders: Yes (ULCERATIVE COLITIS HX) GERD: Yes Glaucoma: No Genitourinary: Yes Headaches: Yes (occasional) Hepatitis: Yes (B AND C) Hiatal Hernia: No Hypertension: Yes Immune Disorder: No Implanted Vascular Access Dvce: No Kidney Stones: Yes Musculoskeletal: Yes (WEAKNESS) Neurologic: Yes (NEUROPATHY) Psychiatric: Yes Reproductive: No Respiratory: Yes (PNEUMONIA) Integumentary: Yes Immunizations Current: Yes Migraines: No Myocardial Infarction: No Radiation Therapy: No Renal Failure: No Seizures: No Sickle Cell Disease: No Sleep Apnea: No Thyroid Disease: No Ulcer: No Past Surgical History Abdominal Surgery: Yes (liver transplant 2001) AICD: No Appendectomy: No Arteriovenous Shunt: No Cardiac Surgery: Yes (ablation) Cholecystectomy: No Ear Surgery: No Endocrine Surgery: No Eye Surgery: No Genitourinary Surgery: No Gynecologic Surgery: No Insulin Pump: No Joint Replacement: No Neurologic Surgery: No Oral Surgery: No Pacemaker: No Thoracic Surgery: No Other Surgery: Yes (liver transplant) Social History Alcohol Use: No Tobacco Use: No (quit 1997) Substance Use: No Allergies-Medications (Allergen,Severity, Reaction): Coded Allergies: *MDRO Multi-Drug Resistant Organism (Verified Adverse Reaction, Unknown, ) MRSA (heel wound) - 07/23/16 Reported Meds & Prescriptions Reported Meds & Active Scripts Active Zithromax Z-Kana (Azithromycin) 250 Mg Dspk 250 Mg PO DIRECTED 500 MG (2 tabs) day 1, then 1 tab days 2-5. Roxicodone (Oxycodone HCl) 5 Mg Tab 5 Mg PO Q6H PRN Novolog Inj (Insulin Aspart) 1,000 Unit/10 Ml Vial 2-12 Units SQ ACHS Max dose at bedtime (10) units; sugars less than 70,(0) units; sugars 150-199,(2) units; sugars 200-249,(4) units; sugars 250-299,(7) units; sugars 300-349,(10) units; sugars greater than 349,(12)units Ambien (Zolpidem Tartrate) 10 Mg Tab 10 Mg PO HS PRN Sorine (Sotalol HCl) 80 Mg Tab 80 Mg PO Q12HR Neurontin (Gabapentin) 300 Mg Cap 300 Mg PO TID Furosemide 40 Mg Tab 40 Mg PO DAILY Atorvastatin (Atorvastatin Calcium) 40 Mg Tab 40 Mg PO HS Norvasc (Amlodipine Besylate) 5 Mg Tab 10 Mg PO DAILY Xanax (Alprazolam) 0.5 Mg Tab 0.5 Mg PO Q8H PRN Reported D3 (Cholecalciferol) 1,000 Unit Tab 1,000 Units PO BID Folic Acid 1 Mg Tablet 1 Mg PO BID Magnesium 250 Mg Tab 500 Mg PO Q3D Lantus Inj (Insulin Glargine) 1,000 Unit/10 Ml Vial 1 Units SQ HS Spironolactone 25 Mg Tab 25 Mg PO DAILY Proscar (Finasteride) 5 Mg Tab 5 Mg PO HS Do not crush. Omeprazole 20 Mg Tab 20 Mg PO DAILYAC Prograf (Tacrolimus) 1 Mg Cap 2 Mg PO BID Ecotrin Low Strength (Aspirin) 81 Mg Tabdr 81 Mg PO DAILY Tamsulosin (Tamsulosin HCl) 0.4 Mg Cap 0.4 Mg PO HS Review of Systems Except as stated in HPI: all other systems reviewed are Neg Physical Exam Narrative GENERAL: Well-nourished and well-developed pleasant patient in no acute distress who is nontoxic appearing. SKIN: Warm and dry. HEAD: Normocephalic and atraumatic. EYES: No injection, drainage, or hyphema noted. PERRLA. EOMI. ENT: No nasal drainage noted. Oropharynx is clear. NECK: Supple and the trachea is midline. CARDIOVASCULAR: Regular rate and rhythm. RESPIRATORY: Decreased at bases bilaterally. No accessory muscle use, wheezing, rhonchi, or crackles. GASTROINTESTINAL: Abdomen is soft, non-tender, and nondistended. MUSCULOSKELETAL: No obvious deformities, swelling, cyanosis, or ecchymosis is present throughout the upper and lower extremities. Patient has full range of motion without any signs of neurovascular compromise. NEUROLOGICAL: Awake, alert, and oriented. Normal speech and gait. Cranial nerves are grossly intact. Data Data Last Documented VS Vital Signs Date Time Temp Pulse Resp B/P Pulse Ox O2 Delivery O2 Flow Rate FiO2 03/03/17 19:46 99 Room Air 03/03/17 19:44 56 18 03/03/17 19:17 99.8 122/65 Orders Complete Blood Count With Diff (03/03/17 19:38) Comprehensive Metabolic Panel (03/03/17 19:38) B-Type Natriuretic Peptide (03/03/17 19:38) Troponin I (03/03/17 19:38) Iv Access Insert/Monitor (03/03/17 19:38) Ecg Monitoring (03/03/17 19:38) Oximetry (03/03/17 19:38) Chest, Single Ap (03/03/17 19:38) Sodium Chloride 0.9% Flush (Ns Flush) (03/03/17 19:45) Lactic Acid Sepsis Protocol (03/03/17 19:38) Labs Laboratory Tests Test 03/03/17 03/03/17 19:50 20:08 White Blood Count 7.7 TH/MM3 Red Blood Count 3.70 MIL/MM3 Hemoglobin 10.3 GM/DL Hematocrit 31.0 % Mean Corpuscular Volume 83.6 FL Mean Corpuscular Hemoglobin 27.7 PG Mean Corpuscular Hemoglobin 33.2 % Concent Red Cell Distribution Width 15.9 % Platelet Count 165 TH/MM3 Mean Platelet Volume 8.6 FL Neutrophils (%) (Auto) 59.5 % Lymphocytes (%) (Auto) 29.6 % Monocytes (%) (Auto) 8.2 % Eosinophils (%) (Auto) 2.4 % Basophils (%) (Auto) 0.3 % Neutrophils # (Auto) 4.6 TH/MM3 Lymphocytes # (Auto) 2.3 TH/MM3 Monocytes # (Auto) 0.6 TH/MM3 Eosinophils # (Auto) 0.2 TH/MM3 Basophils # (Auto) 0.0 TH/MM3 CBC Comment DIFF FINAL Differential Comment Sodium Level 138 MEQ/L Potassium Level 5.4 MEQ/L Chloride Level 110 MEQ/L Carbon Dioxide Level 21.0 MEQ/L Anion Gap 7 MEQ/L Blood Urea Nitrogen 54 MG/DL Creatinine 1.91 MG/DL Estimat Glomerular Filtration 35 ML/MIN Rate Random Glucose 172 MG/DL Calcium Level 8.7 MG/DL Total Bilirubin 0.5 MG/DL Aspartate Amino Transf 39 U/L (AST/SGOT) Alanine Aminotransferase 25 U/L (ALT/SGPT) Alkaline Phosphatase 171 U/L Troponin I LESS THAN 0.02 NG/ML B-Type Natriuretic Peptide 261 PG/ML Total Protein 9.5 GM/DL Albumin 2.3 GM/DL Lactic Acid Level 0.7 mmol/L MDM Medical Decision Making Medical Screen Exam Complete: Yes Emergency Medical Condition: Yes Differential Diagnosis Pneumonia versus CHF exacerbation versus pleurisy versus pleural effusion Narrative Course 66-year-old male presents to the emergency department for evaluation of worsening shortness of breath over the past 2-3 days. Patient has a low-grade temperature of 99.8F. Otherwise vital signs within normal limits. He is chronically immunosuppressed due to antirejection medications status post liver transplant. There is no swelling or signs of fluid overload. IV access was obtained, labs have been drawn and sent. Patient is placed on cardiac telemetry and pulse oximetry monitoring. Chest x-ray is been ordered and is pending. CBC shows anemia with hemoglobin of 10.3, hematocrit 31.0. CMP shows renal insufficiency with a creatinine of 1.91, BUN 54, GFR 35. This is around the patient's baseline. Potassium is noted to be 5.4 with hemolysis noted. Troponin is less than 0.02. BNP is 261. Lactic acid is within normal limits at 0.7. Chest x-ray shows chronic and stable opacity at the right lung base representing pleural effusion with associated volume loss and/or airspace consolidation. Patient is reassessed and has remained stable without complaint while here in the emergency department. Labs are reassuring, do not show any acute abnormalities. Chest x-ray shows a chronic pleural effusion but no acute consolidation. I discussed all findings with the patient and family. He does have a low-grade temperature but otherwise vital signs within normal limits. His only complaint is mild shortness of breath but otherwise is feeling well. I discussed this with my attending physician Dr. Sánchez who recommends outpatient treatment with oral antibiotics. I discussed with the patient and family the option of admission versus discharge with oral antibiotics. The patient would like to be discharged to home with a trial of oral antibiotics at this time. Given his reassuring labs, imaging, and presentation I think this is reasonable. The patient and family are comfortable with this plan. Diagnosis Primary Impression: Shortness of breath Referrals: Primary Care Physician Patient Instructions: General Instructions Additional Instructions: Take medication as prescribed. Follow-up with your Primary Care Physician. Return to the ED for any acute worsening of symptoms. Med/Other Pt SpecificInfo: Prescription(s) given Scripts Azithromycin (Zithromax Z-Kana)250 Mg [id number] Mg PO DIRECTED #1 DSPK Ref 0 500 MG (2 tabs) day 1, then 1 tab days 2-5. Prov:Deniz Sánchez MD 03/03/17 Disposition: 01 DISCHARGE HOME Condition: Stable Tamanna Chung Mar 03, 2017 19:40
[2017-03-03] MEDS ORDERED: LANTUS2P SQ (19:44)
[2017-03-03] MEDS ORDERED: SODIUM CHLORIDE 0.9% FLUSH 10 ML FLUSH IVF PRN (19:45)
[2017-03-03 19:46] VITALS: O2SAT 99
[2017-03-03 20:04] LABS: AUTOMATED NEUTROPHIL # 4.6 TH/MM3 (1.8-7.7); BASOPHIL % 0.3 % (0.0-2.0); EOSINOPHIL # 0.2 TH/MM3 (0-0.4); EOSINOPHIL % 2.4 % (0.0-4.0); HEMO FLAGS DIFF FINAL; LYMPH % 29.6 % (9.0-44.0); LYMPHOCYTE # 2.3 TH/MM3 (1.0-4.8); MEAN CELL VOLUME 83.6 FL (80.0-100.0); MEAN CORPUSCULAR HEMOGLOBIN 27.7 PG (27.0-34.0); MEAN CORPUSCULAR HGB CONC 33.2 % (32.0-36.0); MONO % 8.2 % (0.0-8.0); NEUT % 59.5 % (16.0-70.0); PLATELET COUNT 165 TH/MM3 (150-450); RED CELL DISTRIBUTION WIDTH 15.9 % (11.6-17.2); WHITE BLOOD COUNT 7.7 TH/MM3 (4.0-11.0)
[2017-03-03] MEDS ORDERED: D31000TA PO (20:15)
[2017-03-03] MEDS ORDERED: FOLI1TAB6 PO (20:15)
[2017-03-03] MEDS ORDERED: ESSE250T PO (20:15)
[2017-03-03] MEDS ORDERED: VITA10003 PO (20:16)
[2017-03-03 20:24] LABS: ALKALINE PHOSPHATASE 171 U/L (45-117); TOTAL BILIRUBIN ADULT 0.5 MG/DL (0.2-1.0)
[2017-03-03 20:25] LABS: ALT (GPT) 25 U/L (12-78); ANION GAP 7 MEQ/L (5-15); AST (GOT) 39 U/L (15-37); BLOOD UREA NITROGEN 54 MG/DL (7-18); CHLORIDE 110 MEQ/L (98-107); GLOMERULAR FILTRATION RATE 35 ML/MIN (>89); SODIUM (NA) 138 MEQ/L (136-145)
[2017-03-03 20:27] LABS: POTASSIUM 5.4 MEQ/L (3.5-5.1)
--- NOTE | 2017-03-03 20:54 | RADRPT ---
EXAM DATE/TIME: 03/03/2017 20:32 [facility] COMPARISON: CT ABDOMEN & PELVIS W CONTRAST, January 22, 2017, 20:27. CHEST SINGLE AP, January 22, 2017, 19:17. INDICATIONS : Short of breath and difficulty breathing for several weeks. Patient stated he was diagnosed with pne umonia approxmately 1 month ago. MEDICAL HISTORY : Cardiovascular disease. Hypertension. Cirrhosis. Diabetes. Hep B and C. SURGICAL HISTORY : Liver transplant. ENCOUNTER: Initial ACUITY: 2 weeks PAIN SCORE: 3/10 LOCATION: Bilateral chest FINDINGS: 2 AP views of the chest demonstrate a normal-sized cardiac silhouette. There is a right basilar pleur al-parenchymal opacity, stable from the prior study. No pneumothorax is visualized. There is atelecta sis at the left lung base. Bones demonstrate no acute finding. CONCLUSION: Chronic and stable opacity at the right base representing pleural effusion with associated volume los s and or airspace consolidation. Vin Montero MD on March 03, 2017 at 20:51 Board Certified Radiologist. This report was verified electronically.
[2017-03-03] MEDS ORDERED: ZITHTAB PO (21:21)
[2017-03-03] MEDS ORDERED: AZITHROMYCIN 250 MG TAB PO ONE (21:30)
--- NOTE | 2017-03-04 14:03 | EKG ---
Date Performed: 03/03/2017 Time Performed: 19:30:00 PTAGE: 66 years EKG: SINUS BRADYCARDIA MARKED LEFT AXIS DEVIATION INCOMPLETE RIGHT BUNDLE BRANCH BLOCK ANTEROSEP BLADIMIR MYOCARDIAL INFARCTION MODERATE T-WAVE ABNORMALITY, CONSIDER LATERAL ISCHEMIA Compared to prior tr acing no significant change ABNORMAL ECG PREVIOUS TRACING :01/30/17 DOCTOR: Tiana Chavez Interpretating Date/Time 03/04/2017 13:55:11
== END 2017-03-03 22:02 | disposition home or self-care (01) ==
LOC: NEPC 19:14
DX: R06.02 Shortness of breath (principal); I50.9 Heart failure, unspecified; I10 Essential (primary) hypertension; I48.91 Unspecified atrial fibrillation; R00.1 Bradycardia, unspecified; I45.10 Unspecified right bundle-branch block; J90 Pleural effusion, not elsewhere classified; R94.31 Abnormal electrocardiogram [ECG] [EKG]; E11.8 Type 2 diabetes mellitus with unspecified complications; R91.8 Other nonspecific abnormal finding of lung field; K21.9 Gastro-esophageal reflux disease without esophagitis; B19.20 Unspecified viral hepatitis C without hepatic coma; B19.10 Unspecified viral hepatitis B without hepatic coma; Z79.4 Long term (current) use of insulin; Z87.442 Personal history of urinary calculi; Z94.4 Liver transplant status
CPT/HCPCS: 71010; 80053; 83605; 83880; 84484; 85025; 93005; 99285

== ENCOUNTER 2017-03-21 17:40 | Inpatient (IN) | payer MEDICARE ==
[~2017-03-21] VITALS: Ht 193 cm; Wt 126.5 kg
[2017-03-21] VITALS (17 sets, daily range): BP systolic 62–127; BP diastolic 37–65; PULSE 64–80; RESP 20–34; TEMP 99.4–100.1; O2SAT 93–100
[~2017-03-21 17:40] MED LIST changes: +D31000TA PO; +ESSE250T PO; -FOLI1TAB4 PO; +FOLI1TAB6 PO; -IPRASOL NEB; +LANTUS2P SQ; -LEVEMIR SQ; -MAGN250T2 PO; -MEGE40SU PO; -VITA10003 PO; +ZITHTAB PO
[2017-03-21] MEDS ORDERED: SODIUM CHLOR 0.9% 1000 ML INJ 400 ML IV ONE (17:55)
[2017-03-21] MEDS ORDERED: SODIUM CHLOR 0.9% 1000 ML INJ 1,000 ML IV ONE ×2 (17:55)
[2017-03-21] MEDS ORDERED: PIPERACIL-TAZO 4.5 GM PREMIX 100 ML IV STA (17:55)
[2017-03-21] MEDS ORDERED: ACETAMINOPHEN 650 MG SUPP RECTAL ONE (18:00)
--- NOTE | 2017-03-21 18:01 | PD ---
HPI Chief Complaint: Altered Mental Status Time Seen by Provider: 18:00 Travel History International Travel<30 days: No Contact w/Intl Traveler<30days: No Traveled to known affect area: No History of Present Illness HPI 67-year-old male presents the emergency department with altered mental status, fever, chills, and incontinence at home. He is brought in by his . Patient has history of chronic low back pain for which he takes Xanax and pain Medication at home. Patient's stated that when she arrived home this evening he was somewhat unresponsive and lethargic. She decided to bring him in herself rather call 911 for the ambulance. Patient was found to have a fever 103 orally here in the emergency department. He is able to answer questions with yes or no answers to me at exam. Patient has a history of MRSA. states that the patient has a history of urinary tract infection and prostate trouble in the past. He has no known drug allergies. PFSH Past Medical History Arthritis: No Asthma: No Atrial Fibrillation: Yes (ablation) Autoimmune Disease: No Blood Disorders: No Anxiety: Yes Depression: Yes Heart Rhythm Problems: Yes (atrial fibrillation) Cancer: No Cardiac Catheterization: Yes (2007, LOOP RECORDER 2015) Cardiovascular Problems: Yes High Cholesterol: No Chemotherapy: No Chest Pain: No Congestive Heart Failure: Yes Cirrhosis: Yes (BEFORE TRANSPLANT) COPD: No Cerebrovascular Accident: No Diabetes: Yes Diminished Hearing: No Endocrine: Yes Gastrointestinal Disorders: Yes (ULCERATIVE COLITIS HX) GERD: Yes Glaucoma: No Genitourinary: Yes Headaches: Yes (occasional) Hepatitis: Yes (B AND C) Hiatal Hernia: No Hypertension: Yes Immune Disorder: No Implanted Vascular Access Dvce: No Kidney Stones: Yes Musculoskeletal: Yes (WEAKNESS) Neurologic: Yes (NEUROPATHY) Psychiatric: Yes Reproductive: No Respiratory: Yes (PNEUMONIA) Integumentary: Yes Immunizations Current: Yes Migraines: No Myocardial Infarction: No Radiation Therapy: No Renal Failure: No Seizures: No Sickle Cell Disease: No Sleep Apnea: No Thyroid Disease: No Ulcer: No Past Surgical History Abdominal Surgery: Yes (liver transplant 2001) AICD: No Appendectomy: No Arteriovenous Shunt: No Cardiac Surgery: Yes (ablation) Cholecystectomy: No Ear Surgery: No Endocrine Surgery: No Eye Surgery: No Genitourinary Surgery: No Gynecologic Surgery: No Insulin Pump: No Joint Replacement: No Neurologic Surgery: No Oral Surgery: No Pacemaker: No Thoracic Surgery: No Other Surgery: Yes (liver transplant) Social History Alcohol Use: No Tobacco Use: No (quit 1997) Substance Use: No Allergies-Medications (Allergen,Severity, Reaction): Coded Allergies: *MDRO Multi-Drug Resistant Organism (Verified Adverse Reaction, Unknown, ) MRSA (heel wound) - 07/23/16 MRSA PCR Screen POSITIVE-03/22/17 Reported Meds & Prescriptions Reported Meds & Active Scripts Active Roxicodone (Oxycodone HCl) 5 Mg Tab 5 Mg PO Q6H PRN Novolog Inj (Insulin Aspart) 1,000 Unit/10 Ml Vial 2-12 Units SQ ACHS Max dose at bedtime (10) units; sugars less than 70,(0) units; sugars 150-199,(2) units; sugars 200-249,(4) units; sugars 250-299,(7) units; sugars 300-349,(10) units; sugars greater than 349,(12)units Ambien (Zolpidem Tartrate) 10 Mg Tab 10 Mg PO HS PRN Sorine (Sotalol HCl) 80 Mg Tab 80 Mg PO Q12HR Neurontin (Gabapentin) 300 Mg Cap 300 Mg PO TID Furosemide 40 Mg Tab 40 Mg PO DAILY Atorvastatin (Atorvastatin Calcium) 40 Mg Tab 40 Mg PO HS Norvasc (Amlodipine Besylate) 5 Mg Tab 10 Mg PO DAILY Xanax (Alprazolam) 0.5 Mg Tab 0.5 Mg PO Q8H PRN Reported D3 (Cholecalciferol) 1,000 Unit Tab 1,000 Units PO BID Folic Acid 1 Mg Tablet 1 Mg PO BID Magnesium 250 Mg Tab 500 Mg PO Q3D Lantus Inj (Insulin Glargine) 1,000 Unit/10 Ml Vial 1 Units SQ HS Spironolactone 25 Mg Tab 25 Mg PO DAILY Proscar (Finasteride) 5 Mg Tab 5 Mg PO HS Do not crush. Omeprazole 20 Mg Tab 20 Mg PO DAILYAC Prograf (Tacrolimus) 1 Mg Cap 2 Mg PO BID Ecotrin Low Strength (Aspirin) 81 Mg Tabdr 81 Mg PO DAILY Tamsulosin (Tamsulosin HCl) 0.4 Mg Cap 0.4 Mg PO HS Review of Systems ROS Limitations: Altered Mental Status, Poor Historian Except as stated in HPI: all other systems reviewed are Neg General / Constitutional: Positive: Fever, Chills Eyes: No: Visual changes HENT: No: Headaches Cardiovascular: No: Chest Pain or Discomfort Respiratory: No: Shortness of Breath Gastrointestinal: Positive: Nausea, Vomiting, Abdominal Pain, No: Diarrhea Genitourinary: Positive: Frequency, Dysuria, Incontinence Musculoskeletal: No: Pain Skin: No Rash Neurologic: No: Weakness Psychiatric: No: Depression Endocrine: No: Polydipsia Hematologic/Lymphatic: No: Easy Bruising Physical Exam Exam Limitations: Altered Mental Status Narrative GENERAL: Patient appears in moderate distress. SKIN: Warm and dry. Normal color. Normal turgor. No tenting. No diaphoresis. HEAD: Atraumatic. Normocephalic. EYES: Pupils equal and round. No scleral icterus. No injection or drainage. ENT: No nasal bleeding or discharge. Mucous membranes pink and moist. Pharynx is clear. Airway is patent. NECK: Trachea midline. No JVD. CARDIOVASCULAR: Regular rate and rhythm. RESPIRATORY: No accessory muscle use. Clear to auscultation. Breath sounds equal bilaterally. GASTROINTESTINAL: Abdomen soft, diffuse lower abdominal tenderness, nondistended. Hepatic and splenic margins not palpable. Question of left CVA tenderness MUSCULOSKELETAL: Extremities without clubbing, cyanosis, or edema. No obvious deformities. NEUROLOGICAL: Awake but somewhat lethargic. Patient does answer questions with simple answers. No obvious cranial nerve deficits. Motor grossly within normal limits. Five out of 5 muscle strength in the arms and legs. Normal speech. PSYCHIATRIC: Appropriate mood and affect; insight and judgment normal. Data Data Last Documented VS Vital Signs Date Time Temp Pulse Resp B/P Pulse Ox O2 Delivery O2 Flow Rate FiO2 03/21/17 20:15 72 34 115/59 03/21/17 18:40 97 03/21/17 18:39 Nasal Cannula 2 03/21/17 17:46 100.1 Orders Electrocardiogram (03/21/17 17:55) Complete Blood Count With Diff (03/21/17 17:55) Comprehensive Metabolic Panel (03/21/17 17:55) Prothrombin Time / Inr (Pt) (03/21/17 17:55) Act Partial Throm Time (Ptt) (03/21/17 17:55) Lactic Acid Sepsis Protocol (03/21/17 17:55) Magnesium (Mg) (03/21/17 17:55) Lipase (03/21/17 17:55) Ckmb (Isoenzyme) Profile (03/21/17 17:55) Troponin I (03/21/17 17:55) Urinalysis - C+S If Indicated (03/21/17 17:55) Blood Culture (03/21/17 17:55) Chest, Single Ap (03/21/17 17:55) Blood Gas Venous (Vbg) (03/21/17 17:55) Blood Glucose (03/21/17 17:55) Ecg Monitoring (03/21/17 17:55) Iv Access Insert/Monitor (03/21/17 17:55) Oximetry (03/21/17 17:55) Oxygen Administration (03/21/17 17:55) Acetaminophen Supp (Tylenol Supp) (03/21/17 18:00) Piperacil-Tazo 4.5 Gm Premix (Zosyn 4.5 (03/21/17 17:55) Sodium Chlor 0.9% 1000 Ml Inj (Ns 1000 M (03/21/17 17:55) Sodium Chlor 0.9% 1000 Ml Inj (Ns 1000 M (03/21/17 17:55) Sodium Chlor 0.9% 1000 Ml Inj (Ns 1000 M (03/21/17 17:55) Urinary Catheter Insert/Apply (03/21/17 17:55) Urine Culture (03/21/17 18:30) Morphine Inj (Morphine Inj) (03/21/17 20:15) Lorazepam Inj (Ativan Inj) (03/21/17 20:15) Admit Order (Ed Use Only) (03/21/17 20:21) Labs Laboratory Tests Test 03/21/17 03/21/17 03/21/17 17:59 18:08 18:30 Blood Gas Puncture Site IV Blood Gas Patient Temperature 98.6 Venous Blood pH 7.38 Venous Blood Partial Pressure 32 mmHg CO2 Venous Blood Partial Pressure 29 mmHg O2 Venous Blood HCO3 19 mmol/L Venous Blood Oxygen Saturation 52 % Venous Blood Oxygen Content 7.3 Vol % Venous Blood Base Excess -5.6 mmol/L Oxygen Delivery Device ROOM AIR Blood Gas Inspired Oxygen 21 % White Blood Count 14.0 TH/MM3 Red Blood Count 3.88 MIL/MM3 Hemoglobin 10.5 GM/DL Hematocrit 32.6 % Mean Corpuscular Volume 84.2 FL Mean Corpuscular Hemoglobin 27.1 PG Mean Corpuscular Hemoglobin 32.2 % Concent Red Cell Distribution Width 15.5 % Platelet Count 135 TH/MM3 Mean Platelet Volume 8.7 FL Neutrophils (%) (Auto) 82.8 % Lymphocytes (%) (Auto) 10.7 % Monocytes (%) (Auto) 6.0 % Eosinophils (%) (Auto) 0.3 % Basophils (%) (Auto) 0.2 % Neutrophils # (Auto) 11.6 TH/MM3 Lymphocytes # (Auto) 1.5 TH/MM3 Monocytes # (Auto) 0.8 TH/MM3 Eosinophils # (Auto) 0.0 TH/MM3 Basophils # (Auto) 0.0 TH/MM3 CBC Comment AUTO DIFF Differential Total Cells 100 Counted Neutrophils % (Manual) 78 % Band Neutrophils % 9 % Lymphocytes % 6 % Monocytes % 7 % Neutrophils # (Manual) 12.2 TH/MM3 Differential Comment FINAL DIFF MANUAL Platelet Estimate LOW Platelet Morphology Comment NORMAL Prothrombin Time 12.3 SEC Prothromb Time International 1.1 RATIO Ratio Activated Partial 30.3 SEC Thromboplast Time Sodium Level 132 MEQ/L Potassium Level 5.2 MEQ/L Chloride Level 106 MEQ/L Carbon Dioxide Level 17.0 MEQ/L Anion Gap 9 MEQ/L Blood Urea Nitrogen 73 MG/DL Creatinine 2.32 MG/DL Estimat Glomerular Filtration 28 ML/MIN Rate Random Glucose 204 MG/DL Lactic Acid Level 1.6 mmol/L Calcium Level 8.7 MG/DL Magnesium Level 1.5 MG/DL Total Bilirubin 0.7 MG/DL Aspartate Amino Transf 45 U/L (AST/SGOT) Alanine Aminotransferase 31 U/L (ALT/SGPT) Alkaline Phosphatase 172 U/L Total Creatine Kinase 53 U/L Troponin I 0.03 NG/ML Total Protein 8.7 GM/DL Albumin 2.2 GM/DL Lipase 100 U/L B-Type Natriuretic Peptide 512 PG/ML Urine Color YELLOW Urine Turbidity CLEAR Urine pH 5.5 Urine Specific [place] 1.013 Urine Protein 100 mg/dL Urine Glucose (UA) NEG mg/dL Urine Ketones NEG mg/dL Urine Occult Blood MOD Urine Nitrite NEG Urine Bilirubin NEG Urine Urobilinogen LESS THAN 2.0 MG/DL Urine Leukocyte Esterase NEG Urine RBC 13 /hpf Urine WBC 2 /hpf Urine Amorphous Sediment RARE Urine Bacteria MOD /hpf Urine Hyaline Casts 1 /lpf Urine Mucus FEW /lpf Microscopic Urinalysis Comment CATH-CULTURE IND MDM Medical Decision Making Medical Screen Exam Complete: Yes Emergency Medical Condition: Yes Medical Record Reviewed: Yes Differential Diagnosis Altered mental status. Fever. Possible urosepsis. Narrative Course Patient is felt to be having signs of early sepsis. Labs ordered including CBC, CMP, blood cultures 2, venous blood gas, urinalysis , lactic acid per protocol. EKG and chest x-ray are ordered. Chest x-ray shows no acute process per radiologist. IV access is obtained patient is given 4.5 g of Zosyn IV as well as 1000 mL's normal saline IV 3. Patient is given 650 mg acetaminophen rectal suppository. CBC shows white blood cell count 14,000, hemoglobin 10.5, hematocrit of 32.6. Platelet count is low at 135. Blood gas shows a PCO2 of 32, PO2 of 29, HCO3 of 19, O2 sat of 52, base excess of -5.6. CMP shows a sodium 132, potassium 5.2, chloride of 106, carbon dioxide is 17.0. BUN is 73, creatinine is 2.32. Random glucose is 204, lactic acid is 1.6. AST is 45, alkaline phosphatase is 172, troponin is 0.03 with total creatinine kinase of 53. Total protein is 8.7 and albumin is 2.2. Lipase is normal at 100. Urinalysis shows signs of urinary tract infection and culture is placed. Patient is given 4 mg morphine IV for pain as well as 0.5 mg lorazepam IV for agitation. 2000 hrs. call was placed to the hospitalist for admission for the patient. 2020 hrs. patient was given 0.5 mg lorazepam IV, and upon reassessment by nursing staff, he was noted to have hypertension, and hypoxemia in the 70s. No morphine was given. Dr. Orozco was contacted and came to assess the patient as well and patient was oxygenated with [id number] with nasal trumpet and then intubated. Call was placed to Dr. Marie, the hospitalist and patient was discussed. 2100 hrs. patient is discussed with Dr. Tinjaero, the foreign language stenographer on this evening. She stated that she would be down to see the patient to start a central line and IV pressors as soon as she could. 2105 hrs. patient's blood pressure is noted to be 60/40, and Levaphed IV is started by nursing staff. She care was taken over by Dr. Tinajero and the patient was admitted to the ICU unit. Sepsis Criteria SIRS Criteria (2 or more): Temp > 100.9 or < 96.8, RR > 20 or PaCO2 < 32, WBC > 61606, < 4000 or > 10% bands Sepsis Criteria (SIRS+source): Infect source susp/known Severe Sepsis (+one): Acute Oliguria/Renal Failure Criteria Outcome: Meets severe sepsis criteria Diagnosis Primary Impression: Acute on chronic renal insufficiency Additional Impressions: Urinary tract infection Qualified Code: N30.00 - Acute cystitis without hematuria Sepsis Qualified Code: A41.9 - Sepsis, due to unspecified organism Altered mental status, unspecified Admitting Information Admitting Physician Requests: Admit Condition: Stable Miguel Adames Mar 21, 2017 18:01
[2017-03-21 18:10] LABS: BLOOD GAS VENOUS BASE EXCESS -5.6 mmol/L (-2-2); BLOOD GAS VENOUS HCO3 19 mmol/L (22-26); BLOOD GAS VENOUS O2 CONTENT 7.3 Vol % (9.0-17.0); BLOOD GAS VENOUS O2 HGB SAT 52 % (70-76); BLOOD GAS VENOUS PCO2 32 mmHg (44-48); BLOOD GAS VENOUS PO2 29 mmHg (35-40); BLOOD GAS VENOUS pH 7.38 (7.360-7.400); TEMP CORR TO 98.6
[2017-03-21 18:17] LABS: CRITICAL VALUE YES
[2017-03-21 18:18] LABS: DRAW SITE IV; FIO2 21 %; OXYGEN DEVICE ROOM AIR; STAT YES
--- NOTE | 2017-03-21 18:26 | RADRPT ---
EXAM DATE/TIME: 03/21/2017 17:59 [facility] COMPARISON: CHEST SINGLE AP, October 22, 2016, 14:41. CHEST SINGLE AP, March 03, 2017, 20:32. INDICATIONS : Chest pain. MEDICAL HISTORY : Cardiovascular disease. Hypertension. Cirrhosis. Diabetes. Hep B and C. SURGICAL HISTORY : Liver transplant. ENCOUNTER: Initial ACUITY: 1 day PAIN SCORE: 0/10 LOCATION: Bilateral chest FINDINGS: 2 AP portable erect views the chest was obtained and again demonstrates blunting of the right costoph renic angle with abnormal opacity at the right lung base. There is milder hazy opacity left lung base . There may be minimal blunting of the left costophrenic angle which is unchanged as well. The heart size is within normal limits with no perihilar edema. The bony thorax remains intact. There are multi ple overlying electrocard Jethro weeks. CONCLUSION: Chronic blunting of the right costophrenic angle and airspace disease in the lung bases again noted r ight greater than left. Justin Olvera MD on March 21, 2017 at 18:17 Board Certified Radiologist. This report was verified electronically.
[2017-03-21 18:41] LABS: AUTOMATED NEUTROPHIL # 11.6 TH/MM3 (1.8-7.7); BASOPHIL % 0.2 % (0.0-2.0); EOSINOPHIL % 0.3 % (0.0-4.0); HEMATOCRIT 32.6 % (39.0-51.0); LYMPH % 10.7 % (9.0-44.0); LYMPHOCYTE # 1.5 TH/MM3 (1.0-4.8); MEAN CELL VOLUME 84.2 FL (80.0-100.0); MEAN CORPUSCULAR HEMOGLOBIN 27.1 PG (27.0-34.0); MEAN CORPUSCULAR HGB CONC 32.2 % (32.0-36.0); NEUT % 82.8 % (16.0-70.0); PLATELET COUNT 135 TH/MM3 (150-450); RED BLOOD COUNT 3.88 MIL/MM3 (4.50-5.90); RED CELL DISTRIBUTION WIDTH 15.5 % (11.6-17.2)
[2017-03-21 18:48] LABS: HEMO FLAGS AUTO DIFF
[2017-03-21 18:49] LABS: APTT (PATIENT) 30.3 SEC (24.3-30.1); INTERNATIONAL NORMALIZED RATIO 1.1 RATIO; PROTHROMBIN TIME - PATIENT 12.3 SEC (9.8-11.6)
[2017-03-21 19:07] LABS: ANION GAP 9 MEQ/L (5-15); AST (GOT) 45 U/L (15-37); BLOOD UREA NITROGEN 73 MG/DL (7-18); CHLORIDE 106 MEQ/L (98-107); GLOMERULAR FILTRATION RATE 28 ML/MIN (>89); MAGNESIUM 1.5 MG/DL (1.5-2.5); POTASSIUM 5.2 MEQ/L (3.5-5.1); SODIUM (NA) 132 MEQ/L (136-145)
[2017-03-21 19:09] LABS: ALT (GPT) 31 U/L (12-78)
[2017-03-21 19:12] LABS: ALKALINE PHOSPHATASE 172 U/L (45-117); CREATINE KINASE 53 U/L (39-308); TOTAL BILIRUBIN ADULT 0.7 MG/DL (0.2-1.0)
[2017-03-21 19:44] LABS: BANDS 9 % (0-6); NEUTROPHIL # MANUAL DIFF 12.2 TH/MM3 (1.8-7.7); POLYS (SEG NEUTROPHILS) 78 % (16-70); SCAN/DIFF FINAL DIFF MANUAL; WBC DIFF SAMPLE 100
[2017-03-21 19:45] LABS: PLATELET ESTIMATE SMEAR LOW (NORMAL); PLATELET MORPHOLOGY NORMAL (NORMAL)
[2017-03-21 19:53] LABS: BACTERIA, URINE MOD /hpf; BLOOD, URINE MOD (NEG); GLUCOSE,URINE NEG (NEG); HYALINE CAST, URINE 1 /lpf (RARE); KETONE, URINE NEG (NEG); MUCUS URINE FEW /lpf (OCC); NITRITE,URINE NEG (NEG); PH, URINE 5.5 (5.0-8.5); URINE COLOR YELLOW (YELLW/STRAW)
[2017-03-21 19:55] LABS: COMMENT (UR) CATH-CULTURE IND; CULTURE IF INDICATED CATH CULTURE IND
[2017-03-21] MEDS ORDERED: MORPHINE SULFATE 8 MG/ML INJ IV PUSH ONE (20:15)
[2017-03-21] MEDS ORDERED: LORazepam 2 MG/ML VIAL IV PUSH ONE (20:15)
[2017-03-21] MEDS ORDERED: SODIUM CHLOR 0.9% 1000 ML INJ 1,000 ML IV SCH (20:22)
[2017-03-21] MEDS ORDERED: NALOXONE HCL 0.4 MG/ML AMP IV PRN (20:30)
[2017-03-21] MEDS ORDERED: MAGNESIUM HYDROXIDE SUSP 30 ML CUP PO PRN ×2 (20:30→22:00)
[2017-03-21] MEDS ORDERED: SENNOSIDES 8.6 MG TAB PO PRN ×2 (20:30→22:00)
[2017-03-21] MEDS ORDERED: ACETAMINOPHEN 325 MG TAB PO PRN (20:30)
[2017-03-21] MEDS ORDERED: LACTULOSE SYRUP 20 GM/30 ML CUP PO PRN (20:30)
[2017-03-21] MEDS ORDERED: BISACODYL 10 MG SUPP RECTAL PRN ×2 (20:30→22:00)
[2017-03-21] MEDS ORDERED: ONDANSETRON HCL 4 MG/2 ML VIAL IVP PRN (20:30)
[2017-03-21] MEDS ORDERED: ETOMIDATE 40 MG/20 ML VIAL ONE (20:30)
--- NOTE | 2017-03-21 20:44 | PD ---
Physical Exam Narrative General: The patient is a well-developed well-nourished male was called into the room to see related to acute respiratory distress, O2 saturations in the 60s on the monitor.. Head and Neck exam: Head is normocephalic atraumatic. Eyes: Extra ocular motion testing is unable to be accomplished in this patient who is currently unresponsive. Nose: Midline septum with pink mucous membranes Mouth: Dentition unremarkable. Moist mucus membranes. Posterior oropharynx is not erythematous. No tonsillar hypertrophy. Uvula midline. Airway patent. Neck: No palpable lymphadenopathy. No nuchal rigidity. No thyromegaly. Cardiovascular: Regular rate and rhythm without murmurs, gallops, or rubs. No pulse deficit to the extremities and simultaneous auscultation and palpation of his radial artery. Lungs: Crackles audible bilateral lung malhotra in the bases, poor air movement bilaterally. The patient was on a nonrebreather mask. The patient will be bagged and placed on high flow nasal cannula oxygen in preparation for intubation. Abdomen: Soft, without tenderness to palpation in all 4 quadrants of the abdomen. No guarding, rebound, or rigidity. Normal bowel sounds are audible. No tenderness on palpation of McBurney's point. Negative Spencer's sign. Extremities: No clubbing, cyanosis, or edema. 2+ pulses in all 4 extremities. Back: No spinous process tenderness to palpation. No costovertebral angle tenderness to palpation. Neurologic Exam: Cranial nerves 2-12 were intact on exam. Strength is 5/5 in all 4 extremities. No sensory deficits noted. No dysdiadochokinesis. Good finger to nose and Heel to hernandez bilaterally. Skin Exam: No rash noted. Intact skin that is warm and dry. Data Data Last Documented VS Vital Signs Date Time Temp Pulse Resp B/P Pulse Ox O2 Delivery O2 Flow Rate FiO2 03/21/17 20:15 72 34 115/59 03/21/17 18:40 97 03/21/17 18:39 Nasal Cannula 2 03/21/17 17:46 100.1 Orders Electrocardiogram (03/21/17 17:55) Complete Blood Count With Diff (03/21/17 17:55) Comprehensive Metabolic Panel (03/21/17 17:55) Prothrombin Time / Inr (Pt) (03/21/17 17:55) Act Partial Throm Time (Ptt) (03/21/17 17:55) Lactic Acid Sepsis Protocol (03/21/17 17:55) Magnesium (Mg) (03/21/17 17:55) Lipase (03/21/17 17:55) Ckmb (Isoenzyme) Profile (03/21/17 17:55) Troponin I (03/21/17 17:55) Urinalysis - C+S If Indicated (03/21/17 17:55) Blood Culture (03/21/17 17:55) Chest, Single Ap (03/21/17 17:55) Blood Gas Venous (Vbg) (03/21/17 17:55) Blood Glucose (03/21/17 17:55) Ecg Monitoring (03/21/17 17:55) Iv Access Insert/Monitor (03/21/17 17:55) Oximetry (03/21/17 17:55) Oxygen Administration (03/21/17 17:55) Acetaminophen Supp (Tylenol Supp) (03/21/17 18:00) Piperacil-Tazo 4.5 Gm Premix (Zosyn 4.5 (03/21/17 17:55) Sodium Chlor 0.9% 1000 Ml Inj (Ns 1000 M (03/21/17 17:55) Sodium Chlor 0.9% 1000 Ml Inj (Ns 1000 M (03/21/17 17:55) Sodium Chlor 0.9% 1000 Ml Inj (Ns 1000 M (03/21/17 17:55) Urinary Catheter Insert/Apply (03/21/17 17:55) Urine Culture (03/21/17 18:30) Morphine Inj (Morphine Inj) (03/21/17 20:15) Lorazepam Inj (Ativan Inj) (03/21/17 20:15) Admit Order (Ed Use Only) (03/21/17 20:21) Labs Laboratory Tests Test 03/21/17 03/21/17 03/21/17 17:59 18:08 18:30 Blood Gas Puncture Site IV Blood Gas Patient Temperature 98.6 Venous Blood pH 7.38 Venous Blood Partial Pressure 32 mmHg CO2 Venous Blood Partial Pressure 29 mmHg O2 Venous Blood HCO3 19 mmol/L Venous Blood Oxygen Saturation 52 % Venous Blood Oxygen Content 7.3 Vol % Venous Blood Base Excess -5.6 mmol/L Oxygen Delivery Device ROOM AIR Blood Gas Inspired Oxygen 21 % White Blood Count 14.0 TH/MM3 Red Blood Count 3.88 MIL/MM3 Hemoglobin 10.5 GM/DL Hematocrit 32.6 % Mean Corpuscular Volume 84.2 FL Mean Corpuscular Hemoglobin 27.1 PG Mean Corpuscular Hemoglobin 32.2 % Concent Red Cell Distribution Width 15.5 % Platelet Count 135 TH/MM3 Mean Platelet Volume 8.7 FL Neutrophils (%) (Auto) 82.8 % Lymphocytes (%) (Auto) 10.7 % Monocytes (%) (Auto) 6.0 % Eosinophils (%) (Auto) 0.3 % Basophils (%) (Auto) 0.2 % Neutrophils # (Auto) 11.6 TH/MM3 Lymphocytes # (Auto) 1.5 TH/MM3 Monocytes # (Auto) 0.8 TH/MM3 Eosinophils # (Auto) 0.0 TH/MM3 Basophils # (Auto) 0.0 TH/MM3 CBC Comment AUTO DIFF Differential Total Cells 100 Counted Neutrophils % (Manual) 78 % Band Neutrophils % 9 % Lymphocytes % 6 % Monocytes % 7 % Neutrophils # (Manual) 12.2 TH/MM3 Differential Comment FINAL DIFF MANUAL Platelet Estimate LOW Platelet Morphology Comment NORMAL Prothrombin Time 12.3 SEC Prothromb Time International 1.1 RATIO Ratio Activated Partial 30.3 SEC Thromboplast Time Sodium Level 132 MEQ/L Potassium Level 5.2 MEQ/L Chloride Level 106 MEQ/L Carbon Dioxide Level 17.0 MEQ/L Anion Gap 9 MEQ/L Blood Urea Nitrogen 73 MG/DL Creatinine 2.32 MG/DL Estimat Glomerular Filtration 28 ML/MIN Rate Random Glucose 204 MG/DL Lactic Acid Level 1.6 mmol/L Calcium Level 8.7 MG/DL Magnesium Level 1.5 MG/DL Total Bilirubin 0.7 MG/DL Aspartate Amino Transf 45 U/L (AST/SGOT) Alanine Aminotransferase 31 U/L (ALT/SGPT) Alkaline Phosphatase 172 U/L Total Creatine Kinase 53 U/L Troponin I 0.03 NG/ML Total Protein 8.7 GM/DL Albumin 2.2 GM/DL Lipase 100 U/L B-Type Natriuretic Peptide 512 PG/ML Urine Color YELLOW Urine Turbidity CLEAR Urine pH 5.5 Urine Specific [place] 1.013 Urine Protein 100 mg/dL Urine Glucose (UA) NEG mg/dL Urine Ketones NEG mg/dL Urine Occult Blood MOD Urine Nitrite NEG Urine Bilirubin NEG Urine Urobilinogen LESS THAN 2.0 MG/DL Urine Leukocyte Esterase NEG Urine RBC 13 /hpf Urine WBC 2 /hpf Urine Amorphous Sediment RARE Urine Bacteria MOD /hpf Urine Hyaline Casts 1 /lpf Urine Mucus FEW /lpf Microscopic Urinalysis Comment CATH-CULTURE IND MDM Medical Record Reviewed: Yes Supervised Visit with MANDA: Yes Interpretation(s) Last Impressions Chest X-Ray 03/21/17 1155 Signed Impressions: Service Date/Time: Tuesday, March 21, 2017 17:59 - CONCLUSION: Chronic blunting of the right costophrenic angle and airspace disease in the lung bases again noted right greater than left. Justin Olvera MD Differential Diagnosis Respiratory failure related to fluid overload, versus respiratory failure related to acute sedation, side effect of medication, versus combination of sepsis Narrative Course During the course of the patients emergency department visit, I was urgently called into the room for the patient having respiratory distress with O2 saturations in the 60s, poor air movement. The patient's symptoms began a few minutes after receiving Ativan 0.5 mg IV. The patient reportedly takes Xanax regularly for anxiety. The patient was on a nonrebreather mask and his O2 saturations were slowly coming out, however the patient has diminished air movement, decreased respiratory rate, therefore the patient was prepped for intubation. The patient required minimal sedation for intubation. As the patient does have a history of elevated potassium and renal insufficiency the patient was only given etomidate for sedation and easily intubated. After intubation a chest x-ray was ordered. The patient had a Mcpherson catheter placed to gravity. The patient had an NG tube placed. A second IV was ordered to be placed for additional access in this patient. [facility] however due to the patient's rapid decline the patient will be admitted to the intensive care unit under the care of the demolition expert. Radiology studies were reviewed and remarkable for a chest x-ray that shows interval intubation, right costophrenic angle remain splinted and there is a hazy opacity at the lung bases, left lung base and costophrenic angle are cut off on this initial examination. The patients results were discussed with the patient, including the plan of care. I explained that further testing and/ or monitoring is indicated based on the patients history, examination, and/ or laboratory findings. Therefore, I recommended admission for additional evaluation. The patient expressed understanding and was agreeable with this plan. The patient was admitted to the hospital in guarded condition and sent to a bed under the care of the demolition expert. Procedures Procedure Narrative The patient was put in optimal position for the procedure. Rapid sequence intubation was initiated by me using 20 milligrams of etomidate IV. The patient was intubated with a 8 cuffed endotracheal tube. The patient was intubated with a Luis A blade, the cords were easily visualized. Tube placement was confirmed by visualization of the tube and balloon passing through the cords, capnometry and subsequent chest x-ray. Breath sounds were equal and well aerated bilaterally postintubation. No breath sounds over stomach. Patient tolerated procedure well. Diagnosis Primary Impression: Acute on chronic renal insufficiency Additional Impressions: Urinary tract infection Qualified Code: N30.00 - Acute cystitis without hematuria Altered mental status, unspecified Sepsis Qualified Code: A41.9 - Sepsis, due to unspecified organism Respiratory failure Qualified Code: J96.01 - Acute respiratory failure with hypoxia Admitting Information Admitting Physician Requests: Admit Condition: Stable Trang Orozco MD Mar 21, 2017 20:44
[2017-03-21] MEDS ORDERED: DOCUSATE SODIUM 50 MG/SENNA 8.6 MG TAB PO SCH (21:00)
[2017-03-21] MEDS ORDERED: NOREPINEPHRINE-DEXTROSE DRIP 250 ML IV SCH ×2 (21:00→21:15)
[2017-03-21] MEDS ORDERED: TERBUTALINE INJ 1 MG/ML AMP SQ PRN ×2 (21:00→21:15)
[2017-03-21] MEDS ORDERED: NOREPINEPHRINE 4 MG/4 ML AMP ONE (21:02)
[2017-03-21] MEDS ORDERED: MIDAZOLAM HCL 2 MG/2 ML VIAL IV PUSH PRN (21:15)
--- NOTE | 2017-03-21 21:16 | RADRPT ---
EXAM DATE/TIME: 03/21/2017 20:33 [facility] COMPARISON: CHEST SINGLE AP, March 21, 2017, 17:59. INDICATIONS : Status post intubation. MEDICAL HISTORY : Cardiovascular disease. Hypertension. Cirrhosis. Diabetes. Hep B and C. SURGICAL HISTORY : Liver transplant ENCOUNTER: Subsequent ACUITY: 1 day PAIN SCORE: 0/10 LOCATION: Bilateral chest FINDINGS: A single AP portable supine view of the chest was obtained and demonstrates interval intubation with the endotracheal tube tip approximately 6 cm above the pily. The right costophrenic angle remains b lunted. There is hazy opacity at both lung bases right greater than left. The heart size is at the up per limits of normal. There overlying electrocardiogram leads. The tips of the costophrenic angles ar e cut off the exam. CONCLUSION: 1. Interval intubation. 2. The right costophrenic angle remains blunted and there is hazy opacity at the lung bases. 3. The left lung base and costophrenic angle are cut off the exam. Justin Olvera MD on March 21, 2017 at 21:13 Board Certified Radiologist. This report was verified electronically.
[2017-03-21] MEDS: fentaNYL DRIP 250 ML IV SCH (21:25)
[2017-03-21] MEDS ORDERED: RESP: ALBUTEROL 2.5 MG/3 ML NEB (PRN) INH (22:00)
[2017-03-21] MEDS ORDERED: CHLORHEXIDINE GLUCONATE 2 % 1 PACK (2 CLOTHS) TOP PRN (22:00)
[2017-03-21] MEDS ORDERED: ONDANSETRON HCL 4 MG/2 ML VIAL IV PRN (22:00)
[2017-03-21] MEDS ORDERED: MISCELLANEOUS NURSING INFORMATION XX SCH (22:00)
[2017-03-21] MEDS ORDERED: Vancomycin Consult Pharmacy 1 EA OTHER SCH (22:00)
[2017-03-21] MEDS: VASOPRESSIN INJ 40 UNITS in DEXTROSE 5% IN WATER 100ML INJ 98 ML IV SCH ×2 (22:53)
[2017-03-21] MEDS: SODIUM CHLOR 0.9% 1000 ML INJ 1,000 ML IV SCH ×2 (22:53→23:53)
[2017-03-21] MEDS ORDERED: cefTRIAXone INJ 1,000 MG in SODIUM CHLORIDE 0.9% INJ 100 ML IV SCH (23:00)
[2017-03-21] MEDS ORDERED: VANCOMYCIN INJ 1,600 MG in SODIUM CHLORID 0.9% 500 ML INJ 500 ML IV SCH (23:00)
[2017-03-21] MEDS ORDERED: DEXTROSE 50% IN WATER 50 ML VIAL(D50) IV PRN (23:00)
[2017-03-21] MEDS ORDERED: GLUCAGON 1 MG/ML VIAL OTHER PRN (23:00)
[2017-03-21] MEDS ORDERED: SODIUM BICARBONATE 8.4% INJ 50 MEQ/50 ML SYR IV PUSH ONE (23:00)
--- NOTE | 2017-03-21 23:01 | HHI.HP ---
[facility] Service Critical Care Medicine Primary Care Physician [facility] Admission Diagnosis Urosepsis Diagnosis: Travel History International Travel<30 Days: No Contact w/Intl Traveler <30 Da: No Traveled to Known Affected Are: No History of Present Illness 67-year-old male with past medical history of primary sclerosing cholangitis with orthotopic liver transplant at [facility] in 2001, hypertension, atrial fibrillation status post ablation, hyperlipidemia, diabetes mellitus who presents to [facility] emergency department with altered mental status, fever, urinary incontinence. He was brought in by his . She states that this morning he was doing well and participated with home health physical therapy. When his returned home this evening she found him lethargic and minimally responsive. He had a cup full of mucus and when she inquired about it he stated that he had vomited. He refused ambulance transport. He had a temperature of 103 upon arrival to the emergency department. His states he told ED staff that he had experienced dysuria starting today. He has h/o BPH and UTI in the past. He has chronic low back pain. He denies headache or neck stiffness. His states he returned to his baseline mental status while in the ED and was conversant with her. He had no focal weakness and no witnessed seizure. His ED workup demonstrated U/a with moderate bacteria, 13 WBC, 2 RBC. White blood cell count was 14 with 9% bands, hemoglobin 10.5, platelets 135, AST 45, ALT 31, alkaline phosphatase 172, PT 12.3, INR 1.1 . Creatinine was 2.32 (baseline about 1.6-2), BUN 73, sodium 132 , potassium 5.2, bicarbonate 17 His initial lactic acid was 1.6. He was given Zosyn and 3 L NS bolus and admitted to the hospitalist service. He was complaining of chronic back pain and was anxious/agitated so was given Ativan 0.5 mg IV (chronically on Xanax). ED physician Dr. Orozco was called in because he became unresponsive and he was hypopneic with inadequate respirations. Sats were in the 60s. He complained to his that he could not see. He was hypotensive in 70s and post-intubation BP dropped to 60s/40s and [facility] was called. CVL was placed and he was started on levophed and vasopressin. He is awake on vent and answering questions yes/no. Review of Systems ROS Limitations: Clinical Condition, Intubated Past Family Social History Allergies: Coded Allergies: *MDRO Multi-Drug Resistant Organism (Verified Adverse Reaction, Unknown, ) MRSA (heel wound) - 07/23/16 Past Medical History Primary sclerosing cholangitis Liver transplant 2001 ([facility]) Ulcerative colitis ( states has not been an issue since before liver transplant) Hypertension Hyperlipidemia Diabetes mellitus BPH Hepatitis B and C Depression Anxiety Neuropathy Past Surgical History Liver transplant 2001 Debridement of bilateral feet Ablation for atrial fibrillation Reported Medications Finasteride 5 mg by mouth daily at bedtime Stimulus and 0 point formally grams by mouth daily at bedtime Magnesium 500 mg by mouth every 3 days Gabapentin 3 mg by mouth 3 times a day Ambien 10 mg by mouth daily at bedtime Xanax 0.5 mg by mouth every 8 hours when necessary anxiety Sotalol 80 mg by mouth every 12 hours Norvasc 10 mg by mouth daily Atorvastatin 40 mg by mouth daily at bedtime Prograf 2 g by mouth 3 times a day Insulin sliding scale Lantus Lasix 40 mg by mouth daily Sprain lactone 25 mg by mouth daily Aspirin 81 mill grams by mouth daily Oxycodone 5 mill grams by mouth every 6 hours when necessary pain Omeprazole 20 mg by mouth daily Folic acid 1 mg by mouth twice a day Cholecalciferol 1000 units by mouth twice a day Family History Both of his parents of "bone cancer" in their 60s Social History He smoked a pack of cigarettes per day for 20 years. Quit smoking in 1997. Does not use alcohol or illicit drugs. 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 His and son presented to the emergency department Was discharged to her [facility] after last hospitalization. Has been home for about 2 weeks and getting home health physical therapy. He is able to pivot Physical Exam Vital Signs Vital Signs Date Time Temp Pulse Resp B/P Pulse Ox O2 Delivery O2 Flow Rate FiO2 03/21/17 22:41 96 100 03/21/17 22:00 93 100 03/21/17 21:59 100 03/21/17 21:57 68 20 95/52 93 Ventilator 80 03/21/17 21:39 70 20 88/49 95 Ventilator 03/21/17 21:27 72 20 127/65 95 Ventilator 03/21/17 21:08 70 20 125/56 96 Ventilator 03/21/17 21:02 80 20 62/42 96 03/21/17 20:54 69 30 73/37 96 03/21/17 20:39 70 20 81/46 100 Ventilator 80 03/21/17 20:36 80 03/21/17 20:35 100 80 03/21/17 20:32 71 20 80/52 99 Ventilator 80 03/21/17 20:29 72 31 77/48 99 Ventilator 03/21/17 20:15 72 34 115/59 03/21/17 18:40 74 20 97 03/21/17 18:39 97 Nasal Cannula 2 03/21/17 17:46 100.1 71 20 113/61 99 Physical Exam GENERAL: Chronically ill-appearing 67-year-old male who is orotracheally intubated. He was initially on no sedation in the ED SKIN: Warm and dry. HEAD: Atraumatic. Normocephalic. EYES: Pupils equal and round, 2 mm and reactive bilaterally. No scleral icterus. No injection or drainage. ENT: Mucous membranes dry NECK: Trachea midline. Jugular vein is flat. No meningismus CARDIOVASCULAR: Distant heart sounds, Regular rate and rhythm. No murmurs rubs or gallops. RESPIRATORY: Rhonchorous breath sounds bilaterally with no wheeze. GASTROINTESTINAL: Abdomen soft, non-tender, nondistended. Bowel sounds hypoactive. MUSCULOSKELETAL: There is muscular atrophy of intrinsics of bilateral hands. Extremities without clubbing, cyanosis, or edema. No obvious deformities. NEUROLOGICAL: Eyes open, makes eye contact, nods "yes" and "no" to questions. Follows commands by moving bilateral feet and squeezing bilateral hands to command. Laboratory Laboratory Tests Test 03/21/17 03/21/17 03/21/17 03/21/17 17:59 18:08 18:30 21:36 Blood Gas Puncture Site IV Blood Gas Patient Temperature 98.6 Venous Blood pH 7.38 Venous Blood Partial Pressure 32 CO2 Venous Blood Partial Pressure 29 O2 Venous Blood HCO3 19 Venous Blood Oxygen Saturation 52 Venous Blood Oxygen Content 7.3 Venous Blood Base Excess -5.6 Oxygen Delivery Device ROOM AIR Blood Gas Inspired Oxygen 21 White Blood Count 14.0 Red Blood Count 3.88 Hemoglobin 10.5 Hematocrit 32.6 Mean Corpuscular Volume 84.2 Mean Corpuscular Hemoglobin 27.1 Mean Corpuscular Hemoglobin 32.2 Concent Red Cell Distribution Width 15.5 Platelet Count 135 Mean Platelet Volume 8.7 Neutrophils (%) (Auto) 82.8 Lymphocytes (%) (Auto) 10.7 Monocytes (%) (Auto) 6.0 Eosinophils (%) (Auto) 0.3 Basophils (%) (Auto) 0.2 Neutrophils # (Auto) 11.6 Lymphocytes # (Auto) 1.5 Monocytes # (Auto) 0.8 Eosinophils # (Auto) 0.0 Basophils # (Auto) 0.0 CBC Comment AUTO DIFF Differential Total Cells 100 Counted Neutrophils % (Manual) 78 Band Neutrophils % 9 Lymphocytes % 6 Monocytes % 7 Neutrophils # (Manual) 12.2 Differential Comment FINAL DIFF MANUAL Platelet Estimate LOW Platelet Morphology Comment NORMAL Prothrombin Time 12.3 Prothromb Time International 1.1 Ratio Activated Partial 30.3 Thromboplast Time Sodium Level 132 Potassium Level 5.2 Chloride Level 106 Carbon Dioxide Level 17.0 Anion Gap 9 Blood Urea Nitrogen 73 Creatinine 2.32 Estimat Glomerular Filtration 28 Rate Random Glucose 204 Lactic Acid Level 1.6 2.6 Calcium Level 8.7 Magnesium Level 1.5 Total Bilirubin 0.7 Aspartate Amino Transf 45 (AST/SGOT) Alanine Aminotransferase 31 (ALT/SGPT) Alkaline Phosphatase 172 Total Creatine Kinase 53 Troponin I 0.03 Total Protein 8.7 Albumin 2.2 Lipase 100 Urine Color YELLOW Urine Turbidity CLEAR Urine pH 5.5 Urine Specific [place] 1.013 Urine Protein 100 Urine Glucose (UA) NEG Urine Ketones NEG Urine Occult Blood MOD Urine Nitrite NEG Urine Bilirubin NEG Urine Urobilinogen LESS THAN 2.0 Urine Leukocyte Esterase NEG Urine RBC 13 Urine WBC 2 Urine Amorphous Sediment RARE Urine Bacteria MOD Urine Hyaline Casts 1 Urine Mucus FEW Microscopic Urinalysis Comment CATH-CULTURE IND Random Cortisol 33.0 Date/Time Procedure Status Source Growth 03/21/17 18:30 Urine Culture Received Urine Catheterized Urine Pending 03/21/17 18:10 Aerobic Blood Culture Received Blood Peripheral Pending 03/21/17 18:10 Anaerobic Blood Culture Received Blood Peripheral Pending Result Diagram: 03/21/17180703/21/171807 Assessment and Plan Assessment and Plan NEURO: Vision change Acute encephalopathy Peripheral neuropathy Patient reported to that he could not see before intubation. ?secondary to profound hypotension and hypoperfusion. Pupils reactive, unable to assess vision currently due to intubation and clinical condition. CT brain negative. Obtaned Ammonia level -->28 Will obtain EEG as suppose his AMS and incontinence could be seizure. His states mental status improved to baseline in ED prior to receiving ativan and prior to intubation. Suspicion for meningitis low based on lack of headache or neck pain/stiffnes, improvement in mental status, alternative explanation for sepsis including pneumonia and pneumobilia therefore did not do LP overnight given that he has been severely hemodynamically unstable. Fentanyl drip for analgosedation Versed 2 mg IV bolus prn Later placed on Nimbex to facilitate oxygenation and ventilation Hold Neurontin 300 mg by mouth 3 times a day. Hold Xanax RESP: Acute respiratory failure History of tobacco abuse Acute healthcare associated left lower lobe pneumonia Intubated in the ED due to hypopnea, hypoxia Ventilator bundle. Duoneb every 6 hours. Albuterol every [address] chest - dense consolidation of LLL with air bronchograms. Bronchoscopy with BAL lingula 03/22 CV: Septic shock with multiorgan failure History of atrial fibrillation status post ablation (currently sinus rhythm) History of hypertension Hyperlipidemia Initial troponin 0.03, mild increase to 0.06 is likely related to sepsis. Echo from 01/23/17 - +LVH, EF 60-65%. No regional wall motion abnormalities. Left atrial dilation. Obtain 2-D echo. Hold norvasc, atorvastatin, lasix, spironolactone. Art line placed or hemodynamic monitoring, Flotrac. Appears distributive shock, based on bedside Echo suspect global myocardial depression secondary to sepsis, also LVH. CO 5.7, CI 2.6, SVV 21, SVI 36. CVP 2-4. Received 6 L IVF. Added albumin 25 g IV q6 hours. Levophed 50 mcg/min, vasopressin 0.03 units/min, Neosynephrine to maintain MAP > 65. Serial lactic acid. 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 Mallory as outpatient. He has not been able to follow closely with [facility] due to financial reasons. states he has prograaf levels done at [place] [facility]. She states he has been referred to [facility] for possible repeat transplant due to plasma cell hepatitis but has not had followup appointment yet. Hold prograf 2 mg po bid due to severe sepsis. Followup prograf level. CT abd/pelvis non-contrast - pneumobilia, fecal impaction, no free air or fluid. Pneumobilia on CT scan of unclear etiology, though must consider mesenteric ischemia given his profound shock. No procedures since liver biopsy in December and CT 01/22 did not show pneumobilia. Dr. Conklin examined and also performed fecal disimpaction. At this point he is hypoxic from severe pneumonia and in profound shock with high risk of from even diagnostic laparoscopy. Because pneumonia appears clinically higher on the differential given his presentation (+respiratory compromise, lack of abdominal pain/distension) planned to continue to treat and monitor clinically, with early repeat CT scan if he is stable enough to go down for scan. Will start with bedside upright AXR in the morning to look for free air. Continue serial lactic acid. is made aware of diagnostic and treatment challenges given his severe instability. Consult GI, patient known to Dr. Mallory. UROLOGY: BPH Hold finasteride and tamulosin FEN/RENAL: RAN Oliguria Hyperkalemia Hypomagnesemia Mcpherson in place. Monitor intake and output. Monitor electrolytes. Calcium chloride 1 g IV, bicarbonate 100 mEq IV, initiate bicarbonate drip 150 MEQ/L @ 150 ml/hr. Patient is oliguric and may eventually require renal replacement therapy ID: Septic shock LLL HCAP UTI Pneumobilia. Leukocytosis Bandemia Empiric coverage for HCAP with VAncomycin (pharmacy dosing), Zosyn (dosed creatinine clearance 31), Levaquin 750 mg IV q48 hours. Followup BAL. u/a with moderate bacteria, followup culture. CT with no hydro. Gram negative coverage as per above. CT abdomen with pneumobilia, concerning for mesenteric ischemia/perforation. Has fecal impaction and Dr. Conklin questions presence of perforated stercoral ulcer, however concerned patient is profoundly hypoxic and hemodynamically unstable so will avoid taking him to OR at this point. Serial abdominal exam, f/ u imaging in am. Micafungin added for antifungal coverage. (immunocompromised, concern for bowel perforation, recent broad spectrum antibiotics during recent hospitalization) ID consult HEME: Chronic anemia Thrombocytopenia Monitor CBC. ENDO: Diabetes mellitus Monitor Glucose every 4 hours. Medium dose sliding scale as indicated. PROPH: No SCDs due to profound shock. Hold pharmacologic DVT prophylaxis as patient already has mild thrombocytopenia which may worsen, and may need further procedures/OR. Protonix 40 mg IV daily for stress ulcer prophylaxis. ACCESS: Left subclavian central venous line placed 03/21 #1. R radial art line 03/21 #1. Discussed with Dr. Conklin at bedside. updated on 3 separate occasions. Full code Critical care time 120 minutes exclusive of separately billable procedures. Leelee Tinajero MD Mar 21, 2017 23:01
--- NOTE | 2017-03-21 23:02 | PD.PROCEDR ---
Procedure Note Procedure DATE: 03/21/17 CENTRAL LINE PLACEMENT: Left subclavian vein. INDICATION: Central venous access CONSENT Informed consent for procedure was obtained from patient's after discussion of risks, benefits, alternatives in detail. DESCRIPTION OF THE PROCEDURE The patient was placed in supine position, Trendelenburg. The skin was cleansed with Chloraprep 3. Additional barrier precautions included large sterile drape, sterile gloves, sterile gown, face mask, and hat. 1 % lidocaine was used for local anesthesia. Under direct ultrasound guidance and on single attempt, the vein was accessed with an introducer needle. The guide wire was advanced and the tract was dilated. Using Seldinger technique a 7 Irish 20 cm antimicrobial coated triple-lumen catheter was advanced to a depth of 17 centimeters. The guide wire was removed. All ports had good return of dark venous blood and flushed easily with saline. The central line was secured with 2.0 silk. A sterile dressing with antibiotic disc was applied. ESTIMATED BLOOD LOSS: Minimal COMPLICATIONS: No apparent complications. STAT CT chest is pending. Leelee Tinajero MD Mar 21, 2017 23:02
[2017-03-21 23:07] LABS: BLOOD GAS BASE EXCESS -10.3 mmol/L (-2-2); BLOOD GAS CARBOXYHEMOGLOBIN 0.9 % (0-4); BLOOD GAS HCO3 15 mmol/L (22-26); BLOOD GAS METHEMOGLOBIN 0.6 % (0-2); BLOOD GAS O2 HGB SATURATION 94 % (90-100); BLOOD GAS OXYGEN CONTENT 13.6 Vol % (12.0-20.0); BLOOD GAS PCO2 36 mmHg (38-42); BLOOD GAS PO2 89 mmHG (61-120); BLOOD GAS TOTAL HGB 10.2 G/DL (12.0-16.0); TEMP CORR TO 98.6
[2017-03-21 23:08] LABS: CRITICAL VALUE YES; OXYGEN DEVICE VENTILATOR
[2017-03-21 23:09] LABS: DRAW SITE RT FEMORAL; FIO2 100 %; NUMBER OF ARTERIAL PUNCTURES 1; STAT YES
--- NOTE | 2017-03-21 23:48 | RADRPT ---
EXAM DATE/TIME: 03/21/2017 23:27 [facility] COMPARISON: No previous studies available for comparison. INDICATIONS : Sepsis. RADIATION DOSE: 7.48 CTDIvol (mGy) ; Combined studies - Thorax/Abdomen/Pelvis MEDICAL HISTORY : Diabetes mellitus type 2. Hepatitis B. Congestive heart failure. renal calculi, GERD, colitis SURGICAL HISTORY : Liver transplant ENCOUNTER: Initial ACUITY: 1 day PAIN SCALE: Non-responsive LOCATION: chest TECHNIQUE: Volumetric scanning of the chest was performed. Using automated exposure control and adjustment of t he mA and/or kV according to patient size, radiation dose was kept as low as reasonably achievable to obtain optimal diagnostic quality images. DICOM format image data is available electronically for r eview and comparison. FINDINGS: LUNGS: There is near-complete consolidation of the left lower lobe without a endobronchial obstructing lesio n. There some patchy airspace disease in the lingula and a small moderate disease in the right middle lobe. PLEURAE: There is no pleural thickening. There is a moderate size right pleural effusion and miniscule left pl eural effusion MEDIASTINUM: Endotracheal tube is in good position. The heart and great vessels demonstrate no acute abnormality. There is no hilar lymphadenopathy. 1.4 x 1.0 cm precarinal lymph node AXILLAE: Within normal limits. No lymphadenopathy. MUSCULOSKELETAL: Within normal limits for patient age. MISCELLANEOUS: Tiny amount of air along the bell hepatis. CONCLUSION: Dense infiltrate almost complete opacification of the left lower lobe. Small amount of airspace disea se in the lingula in the right middle lobe. Bilateral pleural effusions right greater left. Some air within the bell hepatis CT abdomen is recommended. Valerio Jerome MD on March 21, 2017 at 23:43 Board Certified Radiologist. This report was verified electronically.
--- NOTE | 2017-03-21 23:49 | RADRPT ---
EXAM DATE/TIME: 03/21/2017 23:27 [facility] COMPARISON: CT BRAIN W/O CONTRAST, November 07, 2015, 18:17. INDICATIONS : Sepsis; altered mental status. RADIATION DOSE: 69.15 CTDIvol (mGy) MEDICAL HISTORY : Diabetes mellitus type 2. Hepatitis B. Congestive heart failure.GERD, hypertension, renal calculi SURGICAL HISTORY : Liver transplant ENCOUNTER: Initial ACUITY: 1 day PAIN SCALE: Non-responsive LOCATION: cranial TECHNIQUE: Multiple contiguous axial images were obtained of the head. Using automated exposure control and adj ustment of the mA and/or kV according to patient size, radiation dose was kept as low as reasonably a chievable to obtain optimal diagnostic quality images. DICOM format image data is available electro nically for review and comparison. FINDINGS: CEREBRUM: The ventricles are normal for age. No evidence of midline shift, mass lesion, hemorrhage or acute in farction. No extra-axial fluid collections are seen. POSTERIOR FOSSA: The cerebellum and brainstem are intact. The 4th ventricle is midline. The cerebellopontine angle i s unremarkable. EXTRACRANIAL: The visualized portion of the orbits is intact. SKULL: The calvaria is intact. No evidence of skull fracture. CONCLUSION: Normal examination. Valerio Jerome MD on March 21, 2017 at 23:48 Board Certified Radiologist. This report was verified electronically.
--- NOTE | 2017-03-21 23:53 | RADRPT ---
EXAM DATE/TIME: 03/21/2017 23:27 [facility] COMPARISON: No previous studies available for comparison. INDICATIONS : Sepsis. ORAL CONTRAST: No oral contrast ingested. RADIATION DOSE: 7.48 CTDIvol (mGy) ; Combined studies - Thorax/Abdomen/Pelvis MEDICAL HISTORY : Diabetes mellitus type 2. Hepatitis B. Congestive heart failure.Hypertension, renal calculi, GERD, co litis SURGICAL HISTORY : Liver transplant ENCOUNTER: Initial ACUITY: 1 day PAIN SCALE: Non-responsive LOCATION: abdomen TECHNIQUE: Volumetric scanning of the abdomen and pelvis was performed. Using automated exposure control and ad justment of the mA and/or kV according to patient size, radiation dose was kept as low as reasonably achievable to obtain optimal diagnostic quality images. DICOM format image data is available electro nically for review and comparison. FINDINGS: LOWER LUNGS: Almost complete opacification of the left lower lobe. Small amount of infiltrate right lower lobe wit h bilateral pleural effusions right greater than left. LIVER: There is a tiny amount of air within the bell hepatis I suspect within the biliary tree. It does not have the typical appearance of portal venous air. SPLEEN: Normal size without lesion. PANCREAS: Within normal limits. KIDNEYS: Normal in size and shape. There is no mass, stone, or hydronephrosis. ADRENAL GLANDS: Within normal limits. VASCULAR: There is no aortic aneurysm. BOWEL/MESENTERY: Significance stool throughout the colon The stomach, small bowel, and colon demonstrate no acute abno rmality. There is no free intraperitoneal air or fluid. ABDOMINAL WALL: Within normal limits. RETROPERITONEUM: There is no lymphadenopathy. BLADDER: No wall thickening or mass. REPRODUCTIVE: Within normal limits. INGUINAL: There is no lymphadenopathy or hernia. MUSCULOSKELETAL: Within normal limits for patient age. CONCLUSION: Moderate stool throughout the colon. Small moderate of the bell hepatis I believe is biliary air. Ot her solid organs are unremarkable. Dense infiltrate left lower lobe within the lung. Valerio Jerome MD on March 21, 2017 at 23:49 Board Certified Radiologist. This report was verified electronically.
[2017-03-21 23:54] LABS: LACTIC ACID GHOST NOT REPORTABLE
[2017-03-22] VITALS (22 sets, daily range): BP systolic 89–128; BP diastolic 54–75; PULSE 61–75; RESP 20–25; TEMP 97.4–98.4; O2SAT 90–100
[2017-03-22] MEDS ORDERED: SODIUM CHLOR 0.9% 1000 ML INJ 1,000 ML IV ONE ×3 (00:15→02:45)
[2017-03-22] MEDS ORDERED: TERBUTALINE INJ 1 MG/ML AMP SQ PRN ×3 (00:15→00:30)
[2017-03-22] MEDS: HYDROCORTISONE SOD SUCCINATE 100 MG VIAL IV PUSH SCH ×4 (00:25→21:56)
[2017-03-22] MEDS: INSULIN ASPART SUPPLEMENTAL SCALE SQ SCH ×3 (00:30→07:00)
[2017-03-22] MEDS ORDERED: PHENYLEPHRINE HCL 160 MG/D5W 484 ML ADMIX IV SCH ×2 (00:30)
[2017-03-22] MEDS ORDERED: PHENYLEPHRINE INJ 160 MG in DEXTROSE 5% IN WATE 500 ML INJ 484 ML IV SCH ×2 (00:30)
[2017-03-22] MEDS ORDERED: SODIUM BICARBONATE 8.4% INJ 50 ML ONE (00:42)
[2017-03-22] MEDS ORDERED: LEVOFLOXACIN 750 MG PREMIX INJ 150 ML IV SCH (01:00)
[2017-03-22] MEDS ORDERED: MICAFUNGIN INJ 100 MG in SODIUM CHLORIDE 0.9% INJ 100 ML IV SCH (02:00)
--- NOTE | 2017-03-22 03:02 | RADRPT ---
EXAM DATE/TIME: 03/22/2017 02:37 [facility] COMPARISON: CHEST SINGLE AP, March 21, 2017, 20:33. INDICATIONS : Respiratory failure. MEDICAL HISTORY : Cardiovascular disease. Hypertension. Cirrhosis. Diabetes. Hep B and C. SURGICAL HISTORY : Liver transplant. ENCOUNTER: Subsequent ACUITY: 2 days PAIN SCORE: 0/10 LOCATION: Bilateral chest FINDINGS: A single view of the chest demonstrates the endotracheal tube, nasogastric tube and left-sided centra l line are in good position. There is no evidence of a pneumothorax. There is a small right pleural e ffusion. Some consolidation left lower lobe could be airspace disease. The cardiomediastinal contour s are unremarkable. Osseous structures are intact. CONCLUSION: Infiltrate in the left lung inferiorly. Left subclavian Central line in good position. Tubes and cath eter is in good position. Valerio Jerome MD on March 22, 2017 at 3:00 Board Certified Radiologist. This report was verified electronically.
[2017-03-22] MEDS: NOREPINEPHRINE-DEXTROSE DRIP 250 ML IV SCH ×7 (03:17→17:08)
[2017-03-22] MEDS: CHLORHEXIDINE GLUCONATE 2 % 1 PACK (2 CLOTHS) TOP SCH (04:00)
[2017-03-22 05:09] LABS: BLOOD GAS BASE EXCESS -13.6 mmol/L (-2-2); BLOOD GAS CARBOXYHEMOGLOBIN 0.8 % (0-4); BLOOD GAS HCO3 15 mmol/L (22-26); BLOOD GAS METHEMOGLOBIN 1.2 % (0-2); BLOOD GAS O2 HGB SATURATION 89 % (90-100); BLOOD GAS OXYGEN CONTENT 13.3 Vol % (12.0-20.0); BLOOD GAS PCO2 60 mmHg (38-42); BLOOD GAS PO2 76 mmHg (61-120); BLOOD GAS TOTAL HGB 10.7 G/DL (12.0-16.0); CRITICAL VALUE YES; DRAW SITE ALINE; FIO2 70 %; OXYGEN DEVICE VENTILATOR; TEMP CORR TO 98.6; ULNAR PULSE PRESENT; VENT SETTINGS PRVC20/500/1.0/+8
[2017-03-22 05:10] LABS: STAT NO
[2017-03-22] MEDS ORDERED: MIDAZOLAM HCL 5 MG/ML VIAL (1 ML) ONE ×3 (05:26→16:01)
[2017-03-22] MEDS ORDERED: CISATRACURIUM INJ 100 MG in SODIUM CHLOR 0.9% 250 ML INJ 240 ML IV SCH (05:30)
[2017-03-22] MEDS ORDERED: MIDAZOLAM HCL 2 MG/2 ML VIAL IV PUSH ONE ×2 (05:30→16:15)
[2017-03-22] MEDS ORDERED: CISATRACURIUM BESYLATE 20 MG/10 ML VIAL IVP ONE (05:30)
[2017-03-22 06:01] LABS: AUTOMATED NEUTROPHIL # 8.3 TH/MM3 (1.8-7.7); BASOPHIL % 0.2 % (0.0-2.0); HEMATOCRIT 32.9 % (39.0-51.0); HEMO FLAGS DIFF FINAL; LYMPH % 12.2 % (9.0-44.0); LYMPHOCYTE # 1.2 TH/MM3 (1.0-4.8); MEAN CELL VOLUME 86.6 FL (80.0-100.0); MEAN CORPUSCULAR HEMOGLOBIN 27.6 PG (27.0-34.0); MEAN CORPUSCULAR HGB CONC 31.9 % (32.0-36.0); MONO % 5.9 % (0.0-8.0); NEUT % 81.7 % (16.0-70.0); PLATELET COUNT 182 TH/MM3 (150-450); RED CELL DISTRIBUTION WIDTH 15.3 % (11.6-17.2); WHITE BLOOD COUNT 10.2 TH/MM3 (4.0-11.0)
[2017-03-22 06:10] LABS: INTERNATIONAL NORMALIZED RATIO 1.3 RATIO; PROTHROMBIN TIME - PATIENT 14.7 SEC (9.8-11.6)
[2017-03-22 06:18] LABS: BICARBONATE 18.7 MEQ/L (21.0-32.0); MAGNESIUM 1.3 MG/DL (1.5-2.5); POTASSIUM 5.5 MEQ/L (3.5-5.1)
[2017-03-22 06:21] LABS: CALCIUM-PROTEIN CORRECTED 7.5 MG/DL (8.5-10.1); TOTAL BILIRUBIN ADULT 0.7 MG/DL (0.2-1.0)
--- NOTE | 2017-03-22 06:26 | PD.PROCEDR ---
Procedure Note Procedure Date: 03/22/17 Procedure: Fiberoptic bronchoscopy with bronchoalveolar lavage, diagnostic Indication: Acute respiratory failure, pneumonia with immunocompromised state Details of procedure: Informed consent was obtained from after discussion of risks, benefits, alternatives.. The patient was on mechanical ventilation with 100% FiO2 via endotracheal tube and sedated with fentanyl 100/hr mcg IV, Versed 4 mg IV, and Nimbex 10 mg IV. I entered the endotracheal tube with a flexible bronchoscope. There were two thick clots ~ 5 mm removed from ETT. The bronchoscope was then advanced into the lingula. Thirty mL of saline was instilled into lingula and there was 20 mL of cloudy return. The bronchoscope was then advanced into the Left lower lobe subsegments which had large amount of thin, brown secretions which were irrigated with multiple 5 cc aliquots of NS. There was erythema of left lower lobe that appeared consistent with aspiration injury. Bronchoscope was advanced into right upper lobe, right middle lobe and right lower lobe subsegments. There were some murky brown secretions suctioned from right lower lobe as well but much fewer than LLL. Bronchoscope was again advanced into the left lower lobe and there was reaccumulation of brown secretions in left lower lobe that were again suctioned with the assistance of 2 5 cc aliquot normal saline wash. He tolerated procedure well. Sats were maintained above 96%. Leelee Tinajero MD Mar 22, 2017 06:26
[2017-03-22] MEDS ORDERED: SODIUM BICARBONATE 8.4% INJ 50 MEQ/50 ML SYR IV PUSH ONE ×3 (06:30→21:15)
[2017-03-22] MEDS: PIPERACIL-TAZO 3.375 GM PREMIX 50 ML IV SCH ×3 (06:42→12:12)
--- NOTE | 2017-03-22 07:43 | RADRPT ---
EXAM DATE/TIME: 03/22/2017 07:00 [facility] COMPARISON: No previous studies available for comparison. INDICATIONS : Possible perforation. MEDICAL HISTORY : Gastroesophageal reflux disease. Diabetes mellitus type 2. Hepatitis B. Congestive heart failur e.Hypertension. Renal calculi. Colitis. SURGICAL HISTORY : Liver transplant ENCOUNTER: Subsequent ACUITY: 2 days PAIN SCORE: Non-responsive. LOCATION: Bilateral Abdomen. FINDINGS: Nasogastric tube is noted within the fundus of the stomach. There are no findings suggestive of free air. There is no significant ileus. Bilateral pleural effusions and underlying airspace disease are noted. CONCLUSION: No findings characteristic of perforation. Nasogastric tube coiled within the fundus of the stomach. Emilio Snow MD on March 22, 2017 at 7:41 Board Certified Radiologist. This report was verified electronically.
[2017-03-22] MEDS ORDERED: MAGNESIUM SULFATE 1 GM PREMIX 100 ML IV ONE (08:30)
[2017-03-22 08:35] LABS: BLOOD GAS VENOUS BASE EXCESS -10.7 mmol/L (-2-2); BLOOD GAS VENOUS HCO3 17 mmol/L (22-26); BLOOD GAS VENOUS O2 CONTENT 11.4 Vol % (9.0-17.0); BLOOD GAS VENOUS O2 HGB SAT 76 % (70-76); BLOOD GAS VENOUS PCO2 55 mmHg (44-48); BLOOD GAS VENOUS PO2 46 mmHg (35-40); BLOOD GAS VENOUS pH 7.12 (7.360-7.400); CRITICAL VALUE YES; OXYGEN DEVICE VENTILATOR; TEMP CORR TO 98.6
[2017-03-22 08:36] LABS: DRAW SITE SWAN GANZ LINE; FIO2 100 %; STAT YES; VENT SETTINGS PRVC20/600/1.1/+8
[2017-03-22] MEDS: PANTOPRAZOLE SODIUM 40 MG VIAL IV SCH (08:37)
[2017-03-22] MEDS: SODIUM CHLORIDE 0.9% FLUSH 10 ML FLUSH IV FLUSH SCH ×2 (08:39→19:22)
[2017-03-22] MEDS: ALBUMIN HUMAN 25% 25 GM/100 ML BAGP IV SCH ×3 (08:40→19:53)
[2017-03-22] MEDS ORDERED: CALCIUM CHLORIDE INJ 1 GM in DEXTROSE 5% IN WATER 100ML INJ 100 ML IV ONE ×2 (09:00)
[2017-03-22] MEDS: DOCUSATE SODIUM 50 MG/SENNA 8.6 MG TAB PO SCH ×2 (09:50→19:53)
[2017-03-22] MEDS: FOLIC ACID 1 MG TAB PO SCH ×2 (09:50→19:53)
[2017-03-22] MEDS: SODIUM BICARBONATE 8.4% INJ 150 MEQ in WATER STERILE FOR INJ 850 ML IV SCH ×3 (09:50→22:27)
[2017-03-22] MEDS: CHOLECALCIFEROL (VIT D3) 1000 UNIT TAB PO SCH ×2 (09:50→19:53)
[2017-03-22] MEDS: CHLORHEXIDINE 0.12% (ORAL KIT) 15 ML CUP MT SCH ×2 (09:51→19:22)
[2017-03-22 09:58] LABS: BLOOD GAS BASE EXCESS -12.5 mmol/L (-2-2); BLOOD GAS CARBOXYHEMOGLOBIN 0.9 % (0-4); BLOOD GAS HCO3 15 mmol/L (22-26); BLOOD GAS METHEMOGLOBIN 1.2 % (0-2); BLOOD GAS O2 HGB SATURATION 96 % (90-100); BLOOD GAS OXYGEN CONTENT 17.5 Vol % (12.0-20.0); BLOOD GAS PCO2 47 mmHg (38-42); BLOOD GAS PO2 152 mmHg (61-120); BLOOD GAS TOTAL HGB 12.7 G/DL (12.0-16.0); TEMP CORR TO 98.6
[2017-03-22 10:00] LABS: CRITICAL VALUE YES; OXYGEN DEVICE VENTILATOR
[2017-03-22 10:01] LABS: DRAW SITE ART LINE; FIO2 100 %; NUMBER OF ARTERIAL PUNCTURES 0; ULNAR PULSE PRESENT; VENT SETTINGS PRVC 20/600/1.1/+8
[2017-03-22 10:02] LABS: STAT NO
--- NOTE | 2017-03-22 10:20 | PD.CONS ---
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 He has not been seen at the [facility] and 5-10 years secondary to financial issues. 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 Similar histologic findings can also be seen in plasma cell rich rejection. Correlation with recent BILLY, ASMA, and serum IgG level is recommended. Typical features of acute cellular rejection are not seen. There is no evidence of chronic biliary tract disease or active steatohepatitis. Labs from January 28, 2017 revealed IgG total 3887, IgG1 2359, IgG3 57, IgG4 > 300.00. BILLY negative, ASMA negative. When he was hospitalized in January we spoke with his production control coordinator at [facility], Tiana Lo who at that time stated that they could not make recommendations regarding this, as they have not seen him since 2008 and because of an outstanding balance, he could not schedule a follow up at [facility] to get reestablished until he contacts the Central Appointment Office to see if they can make payment arrangements. The patient was then referred to [facility], but according to our outpatient records, the patient medical parasitologist had denied appointment to be seen at [facility] stating that he will need to follow up at [facility], since his transplant was done at that facility. I spoke to Connie St () and she reports that she did contact the appointment office, but states was told that she would need to pay $8,000 dollars for an unpaid balance before he can be seen again. The reports that they have no means to make this payment and therefore was hoping he could be seen by [facility]. He now presents to the ER for evaluation of altered mental status, fever, and urinary incontinence. His reported that he was doing well with PT earlier in the day and that she left the house. When she returned , he was lethargic and minimally responsive. In the ER, he was found to have a temperature of 103, leukocytosis with bandemia, acute kidney function, and multiple electrolyte abnormalities. He became hypopneic and unresponsive with O2 sat's in the 60's and required intubation with mechanical ventilation and was started on vasopressors for hypotension. He is currently sedated on the ventilator and unable to provide any history. He is being treated with antibiotics for septic shock with multiorgan failure. GI has been consulted for further evaluation. 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 Pathology hyperplastic polyp negative for Helicobacter Liver transplant Liver biopsy Coded Allergies: *MDRO Multi-Drug Resistant Organism (Verified Adverse Reaction, Unknown, ) MRSA (heel wound) - 07/23/16 MRSA PCR Screen POSITIVE-03/22/17 Medications Allergies Coded Allergies Type Severity Reaction Last Updated Verified *MDRO Multi-Drug Resistant Organism Adverse Reaction Unknown 03/22/17 Yes Active Scripts Medications Dose Route/Sig Days Date Category Dose Instructions D3 (Cholecalciferol) 1,000 Unit Tab 1,000 Units PO BID 03/03/17 Reported Folic Acid 1 Mg Tablet 1 Mg PO BID 03/03/17 Reported Magnesium 250 Mg Tab 500 Mg PO Q3D 03/03/17 Reported Lantus Inj (Insulin Glargine) 1,000 Unit/10 Ml Vial 1 Units SQ HS 03/03/17 Reported Roxicodone (Oxycodone HCl) 5 Mg Tab 5 Mg PO Q6H PRN 02/02/17 Rx Novolog Inj (Insulin Aspart) 1,000 Unit/10 Ml Vial 2-12 Units SQ ACHS 02/02/17 Rx Max dose at bedtime (10) units; sugars less than 70,(0) units; sugars 150-199,(2) units; sugars 200-249,(4) units; sugars 250-299,(7) units; sugars 300-349,(10) units; sugars greater than 349,(12)units Kera (Zolpidem Tartrate) 10 Mg Tab 10 Mg PO HS PRN 02/02/17 Rx Sorine (Sotalol HCl) 80 Mg Tab 80 Mg PO Q12HR 02/02/17 Rx Neurontin (Gabapentin) 300 Mg Cap 300 Mg PO TID 02/02/17 Rx Furosemide 40 Mg Tab 40 Mg PO DAILY 02/02/17 Rx Atorvastatin (Atorvastatin Calcium) 40 Mg Tab 40 Mg PO HS 02/02/17 Rx Norvasc (Amlodipine Besylate) 5 Mg Tab 10 Mg PO DAILY 02/02/17 Rx Xanax (Alprazolam) 0.5 Mg Tab 0.5 Mg PO Q8H PRN 02/02/17 Rx Spironolactone 25 Mg Tab 25 Mg PO DAILY 01/25/17 Reported Proscar (Finasteride) 5 Mg Tab 5 Mg PO HS 07/15/16 Reported Do not crush. Omeprazole 20 Mg Tab 20 Mg PO DAILYAC 07/15/16 Reported Prograf (Tacrolimus) 1 Mg Cap 2 Mg PO BID 07/15/16 Reported Ecotrin Low Strength (Aspirin) 81 Mg Tabdr 81 Mg PO DAILY 07/15/16 Reported Tamsulosin (Tamsulosin HCl) 0.4 Mg Cap 0.4 Mg PO HS 07/15/16 Reported Family History Denies any family hx of autoimmune disorders or esophageal/gastric/colorectal cancer Social History No use of tobacco, etoh, or illicit drug use. Did drink occasionally prior to liver transplant, never a heavy drinker Review of Systems ROS Unable to obtain GI Exam Vitals I&O Vital Signs Date Time Temp Pulse Resp B/P Pulse Ox O2 Delivery O2 Flow Rate FiO2 03/22/17 09:12 100 100 03/22/17 07:00 98.4 63 20 123/65 100 03/22/17 06:00 66 03/22/17 05:55 100 100 03/22/17 04:15 100 70 03/22/17 04:00 72 03/22/17 03:00 97.4 71 20 89/54 90 03/22/17 02:00 68 03/22/17 00:00 65 03/21/17 23:55 99.4 64 29 91/50 99 03/21/17 23:20 96 100 03/21/17 23:12 65 20 87/53 100 Ventilator 100 03/21/17 22:41 96 100 03/21/17 22:00 93 100 03/21/17 21:59 100 03/21/17 21:57 68 20 95/52 93 Ventilator 80 03/21/17 21:39 70 20 88/49 95 Ventilator 03/21/17 21:27 72 20 127/65 95 Ventilator 03/21/17 21:08 70 20 125/56 96 Ventilator 03/21/17 21:02 80 20 62/42 96 03/21/17 20:54 69 30 73/37 96 03/21/17 20:39 70 20 81/46 100 Ventilator 80 03/21/17 20:36 80 03/21/17 20:35 100 80 03/21/17 20:32 71 20 80/52 99 Ventilator 80 03/21/17 20:29 72 31 77/48 99 Ventilator 03/21/17 20:15 72 34 115/59 03/21/17 18:40 74 20 97 03/21/17 18:39 97 Nasal Cannula 2 03/21/17 17:46 100.1 71 20 113/61 99 I/O 03/21/17 03/21/17 03/21/17 03/22/17 03/22/17 03/22/17 07:00 15:00 23:00 07:00 15:00 23:00 Intake Total 5213 ml Output Total 625 ml Balance 4588 ml Intake IV Total 5213 ml Output Urine Total 625 ml # Bowel Movements 1 Imaging Last Impressions Chest X-Ray 03/22/17 0000 Signed Impressions: Service Date/Time: Wednesday, March 22, 2017 02:37 - CONCLUSION: Infiltrate in the left lung inferiorly. Left subclavian Central line in good position. Tubes and catheter is in good position. Valerio Jerome MD Abdomen X-Ray 03/22/17 0000 Signed Impressions: Service Date/Time: Wednesday, March 22, 2017 07:00 - CONCLUSION: No findings characteristic of perforation. Nasogastric tube coiled within the fundus of the stomach. Emilio Snow MD Head CT 03/21/17 0000 Signed Impressions: Service Date/Time: Tuesday, March 21, 2017 23:27 - CONCLUSION: Normal examination. Valerio Jerome MD Chest CT 03/21/17 0000 Signed Impressions: Service Date/Time: Tuesday, March 21, 2017 23:27 - CONCLUSION: Dense infiltrate almost complete opacification of the left lower lobe. Small amount of airspace disease in the lingula in the right middle lobe. Bilateral pleural effusions right greater left. Some air within the bell hepatis CT abdomen is recommended. Valerio Jerome MD Abdomen/Pelvis CT 03/21/17 0000 Signed Impressions: Service Date/Time: Tuesday, March 21, 2017 23:27 - CONCLUSION: Moderate stool throughout the colon. Small moderate of the bell hepatis I believe is biliary air. Other solid organs are unremarkable. Dense infiltrate left lower lobe within the lung. Valerio Jerome MD Laboratory Test 03/21/17 03/21/17 03/21/17 03/21/17 17:59 18:08 18:30 21:36 Blood Gas Puncture Site IV Blood Gas Patient Temperature 98.6 Venous Blood pH 7.38 Venous Blood Partial Pressure 32 mmHg CO2 Venous Blood Partial Pressure 29 mmHg O2 Venous Blood HCO3 19 mmol/L Venous Blood Oxygen Saturation 52 % Venous Blood Oxygen Content 7.3 Vol % Venous Blood Base Excess -5.6 mmol/L Oxygen Delivery Device ROOM AIR Blood Gas Inspired Oxygen 21 % White Blood Count 14.0 TH/MM3 Red Blood Count 3.88 MIL/MM3 Hemoglobin 10.5 GM/DL Hematocrit 32.6 % Mean Corpuscular Volume 84.2 FL Mean Corpuscular Hemoglobin 27.1 PG Mean Corpuscular Hemoglobin 32.2 % Concent Red Cell Distribution Width 15.5 % Platelet Count 135 TH/MM3 Mean Platelet Volume 8.7 FL Neutrophils (%) (Auto) 82.8 % Lymphocytes (%) (Auto) 10.7 % Monocytes (%) (Auto) 6.0 % Eosinophils (%) (Auto) 0.3 % Basophils (%) (Auto) 0.2 % Neutrophils # (Auto) 11.6 TH/MM3 Lymphocytes # (Auto) 1.5 TH/MM3 Monocytes # (Auto) 0.8 TH/MM3 Eosinophils # (Auto) 0.0 TH/MM3 Basophils # (Auto) 0.0 TH/MM3 CBC Comment AUTO DIFF Differential Total Cells 100 Counted Neutrophils % (Manual) 78 % Band Neutrophils % 9 % Lymphocytes % 6 % Monocytes % 7 % Neutrophils # (Manual) 12.2 TH/MM3 Differential Comment FINAL DIFF MANUAL Platelet Estimate LOW Platelet Morphology Comment NORMAL Prothrombin Time 12.3 SEC Prothromb Time International 1.1 RATIO Ratio Activated Partial 30.3 SEC Thromboplast Time Sodium Level 132 MEQ/L Potassium Level 5.2 MEQ/L Chloride Level 106 MEQ/L Carbon Dioxide Level 17.0 MEQ/L Anion Gap 9 MEQ/L Blood Urea Nitrogen 73 MG/DL Creatinine 2.32 MG/DL Estimat Glomerular Filtration 28 ML/MIN Rate Random Glucose 204 MG/DL Lactic Acid Level 1.6 mmol/L 2.6 mmol/L Calcium Level 8.7 MG/DL Magnesium Level 1.5 MG/DL Total Bilirubin 0.7 MG/DL Aspartate Amino Transf 45 U/L (AST/SGOT) Alanine Aminotransferase 31 U/L (ALT/SGPT) Alkaline Phosphatase 172 U/L Total Creatine Kinase 53 U/L Troponin I 0.03 NG/ML Total Protein 8.7 GM/DL Albumin 2.2 GM/DL Lipase 100 U/L B-Type Natriuretic Peptide 512 PG/ML Urine Color YELLOW Urine Turbidity CLEAR Urine pH 5.5 Urine Specific Ross 1.013 Urine Protein 100 mg/dL Urine Glucose (UA) NEG mg/dL Urine Ketones NEG mg/dL Urine Occult Blood MOD Urine Nitrite NEG Urine Bilirubin NEG Urine Urobilinogen LESS THAN 2.0 MG/DL Urine Leukocyte Esterase NEG Urine RBC 13 /hpf Urine WBC 2 /hpf Urine Amorphous Sediment RARE Urine Bacteria MOD /hpf Urine Hyaline Casts 1 /lpf Urine Mucus FEW /lpf Microscopic Urinalysis Comment CATH-CULTURE IND Random Cortisol 33.0 MCG/DL Test 03/21/17 03/21/17 03/22/17 03/22/17 22:25 22:50 01:30 01:45 Ammonia 28 MCMOL/L Blood Gas Puncture Site RT FEMORAL Blood Gas Patient Temperature 98.6 Blood Gas HCO3 15 mmol/L Blood Gas Base Excess -10.3 mmol/L Blood Gas Oxygen Saturation 94 % Arterial Blood pH 7.26 Arterial Blood Partial 36 mmHg Pressure CO2 Arterial Blood Partial 89 mmHG Pressure O2 Arterial Blood Oxygen Content 13.6 Vol % Arterial Blood 0.9 % Carboxyhemoglobin Arterial Blood Methemoglobin 0.6 % Blood Gas Hemoglobin 10.2 G/DL Oxygen Delivery Device VENTILATOR Blood Gas Ventilator Setting Blood Gas Inspired Oxygen 100 % Lactic Acid Level 2.6 mmol/L Total Creatine Kinase 54 U/L Troponin I 0.06 NG/ML Nasal Screen MRSA (PCR) MRSA DETECTED Test 03/22/17 03/22/17 03/22/17 04:55 05:40 08:15 Blood Gas Puncture Site KAILYN SWAN SUDEEP LINE Blood Gas Patient Temperature 98.6 98.6 Blood Gas HCO3 15 mmol/L Blood Gas Base Excess -13.6 mmol/L Blood Gas Oxygen Saturation 89 % Arterial Blood pH 7.04 Arterial Blood Partial 60 mmHg Pressure CO2 Arterial Blood Partial 76 mmHg Pressure O2 Arterial Blood Oxygen Content 13.3 Vol % Arterial Blood 0.8 % Carboxyhemoglobin Arterial Blood Methemoglobin 1.2 % Blood Gas Hemoglobin 10.7 G/DL Oxygen Delivery Device VENTILATOR VENTILATOR Blood Gas Ventilator Setting PRVC20/500/1.0/+8 PRVC20/600/1.1/+8 Blood Gas Inspired Oxygen 70 % 100 % White Blood Count 10.2 TH/MM3 Red Blood Count 3.80 MIL/MM3 Hemoglobin 10.5 GM/DL Hematocrit 32.9 % Mean Corpuscular Volume 86.6 FL Mean Corpuscular Hemoglobin 27.6 PG Mean Corpuscular Hemoglobin 31.9 % Concent Red Cell Distribution Width 15.3 % Platelet Count 182 TH/MM3 Mean Platelet Volume 8.7 FL Neutrophils (%) (Auto) 81.7 % Lymphocytes (%) (Auto) 12.2 % Monocytes (%) (Auto) 5.9 % Eosinophils (%) (Auto) 0.0 % Basophils (%) (Auto) 0.2 % Neutrophils # (Auto) 8.3 TH/MM3 Lymphocytes # (Auto) 1.2 TH/MM3 Monocytes # (Auto) 0.6 TH/MM3 Eosinophils # (Auto) 0.0 TH/MM3 Basophils # (Auto) 0.0 TH/MM3 CBC Comment DIFF FINAL Differential Comment Prothrombin Time 14.7 SEC Prothromb Time International 1.3 RATIO Ratio Sodium Level 139 MEQ/L Potassium Level 5.5 MEQ/L Chloride Level 112 MEQ/L Carbon Dioxide Level 18.7 MEQ/L Anion Gap 8 MEQ/L Blood Urea Nitrogen 62 MG/DL Creatinine 2.31 MG/DL Estimat Glomerular Filtration 28 ML/MIN Rate Random Glucose 307 MG/DL Lactic Acid Level 2.6 mmol/L Calcium Level 7.1 MG/DL Protein Corrected Calcium 7.5 MG/DL Phosphorus Level 4.8 MG/DL Magnesium Level 1.3 MG/DL Total Bilirubin 0.7 MG/DL Aspartate Amino Transf 42 U/L (AST/SGOT) Alanine Aminotransferase 28 U/L (ALT/SGPT) Alkaline Phosphatase 114 U/L Total Creatine Kinase 64 U/L Troponin I 0.06 NG/ML B-Type Natriuretic Peptide 2188 PG/ML Total Protein 6.3 GM/DL Albumin 1.5 GM/DL Venous Blood pH 7.12 Venous Blood Partial Pressure 55 mmHg CO2 Venous Blood Partial Pressure 46 mmHg O2 Venous Blood HCO3 17 mmol/L Venous Blood Oxygen Saturation 76 % Venous Blood Oxygen Content 11.4 Vol % Venous Blood Base Excess -10.7 mmol/L Date/Time Procedure Status Source Growth 03/22/17 06:05 Gram Stain Received Bronchial Washings Other Pending 03/22/17 06:05 Bronchial Culture Received Bronchial Washings Other Pending 03/22/17 06:05 Fungal Smear Received Bronchial Washings Other Pending 03/22/17 06:05 Fungal Culture Received Bronchial Washings Other Pending 03/22/17 06:05 Acid Fast Stain Received Bronchial Washings Other Pending 03/22/17 06:05 Mycobacterial Culture Received Bronchial Washings Other Pending 03/21/17 18:30 Urine Culture Received Urine Catheterized Urine Pending 03/21/17 18:30 Legionella Antigen - Final Complete Urine Catheterized Urine PRESUMPTIVE NEGATIVE FOR LEGIONELLA P... 03/21/17 18:30 Streptococcus pneumoniae Antigen (M - Final Complete Urine Catheterized Urine PRESUMPTIVE NEGATIVE FOR STREPTOCOCCU... 03/21/17 18:10 Aerobic Blood Culture Received Blood Peripheral Pending 03/21/17 18:10 Anaerobic Blood Culture Received Blood Peripheral Pending Physical Examination HEENT: Normocephalic; atraumatic CHEST: OETT to vent. Diminished bases. CARDIAC: ST- 100 ABDOMEN: Soft, nondistended, nontender; hepatosplenomegaly; bowel sounds are present in all four quadrants. EXTREMITIES: Trace edema. SKIN: Normal; no rash; no jaundice. 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 He has not been seen at the [facility] and 5-10 years secondary to financial issues. Unfortunately, he cannot make an appointment to follow up at [facility] until he makes a payment of $8,000 for an outstanding balance. The tells me charles there is no way she can make this payment and that she will have to "deal with that later." We did refer patient to [facility], but patient was declined secondary to having his transplant done at [facility] and they said that he would need to follow up at [facility]. 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 Similar histologic findings can also be seen in plasma cell rich rejection. Correlation with recent BILLY, ASMA, and serum IgG level is recommended. Typical features of acute cellular rejection are not seen. There is no evidence of chronic biliary tract disease or active steatohepatitis. Labs from January 28, 2017 revealed IgG total 3887, IgG1 2359, IgG3 57, IgG4 > 300.00. BILLY negative, ASMA negative. T. Bili 0.7, AST 42, ALT 28, ALk Phosph 114. Prograf level pending. On Solucortef. MELD 16. - Constipation, Fecal impaction. Abdomen/Pelvis CT (03/21/17)-----> Moderate stool throughout the colon. Small moderate of the bell hepatis I believe is biliary air. Other solid organs are unremarkable. Dense infiltrate left lower lobe within the lung. - Anemia. 10.5/32.9. - Coagulopathy. PT 14.7, INR 1.3. - Sepsis with multisystem failure. Pt with bandemia, UTI/PNA. Bronachial washings pending, urine negative for legionella and streptococcus, urine cx pending, bcx pending, Micafungin, Levaquin, Zosyn. On vasopressors - Resp. Failure, HCAP. Levaquin, Zosyn, Micafungin, Nebs. Vent per CCM. - RAN with electrolyte abnormalities. Creat 2.31. K+ 5.5. - AMS. Ammonia 28. EEG pending. - Hx HTN, hyperlipidemia, BPH, per attending. PLAN: - NPO for now - Check for impaction, disimpact if necessary - Add Lactulose 30mL po BID - Add Xifaxan 550mg po BID - Await prograf level - Cont. steroids - Cont. abx - Cont. PPI - CBC, CMP, PT/INR in am - Supportive care - Further recommendations to follow based on results of above - Of note, patient has been declined by [facility] secondary to having original transplant at [facility] - [facility] will not see patient until they have resolved outstanding balance ($8,000 ), states that she is unable to do this - Pt seen and examined by Dr. Tate and myself and this note is written on his behalf - Pt seen and examined by Dr. Tate and myself and this note is written on his behalf Kenisha Lopez Mar 22, 2017 10:20
[2017-03-22] MEDS: RESP: ALBUTEROL 2.5 MG/IPRATROPIUM 0.5 MG NEB (SCH) NEB ×3 (10:23→19:33)
--- NOTE | 2017-03-22 10:38 | RADRPT ---
EXAM DATE/TIME: 03/22/2017 08:14 [facility] COMPARISON: No previous studies available for comparison. EXTERNAL COMPARISON : [facility], US ABDOMEN LIVER, January 01, 2017 INDICATIONS : Abnormal CT. MEDICAL HISTORY : Congestive heart failure. Hypertension. Gastroesophageal reflux disease. Neuropathy. Headaches. Afib. Ulcerative colitis. Kidney stones. Diabetes. Liver disease. Depression. Anxiety. Hepatitis B and C. MRSA. Cholecystectomy. SURGICAL HISTORY : Liver transplant. Loop recorder placement. Cardiac ablation. ENCOUNTER: Initial ACUITY: 1 day PAIN SCORE: Nonresponsive. LOCATION: Bilateral upper quadrant MEASUREMENTS: LIVER: 15.3 cm length COMMON DUCT: 2 mm RIGHT KIDNEY: 12.6 x 5.7 x 6.2 cm LEFT KIDNEY: 11.9 x 4.8 x 6.6 cm SPLEEN: 10.9 cm length AORTA: 2.0cm maximal FINDINGS: Recent CT examination that demonstrated branching air-containing structures in the central porti on of the liver which were felt to represent pneumobilia. LIVER: Transplanted liver appears coarsely echogenic with patent portal vein. Cat Breeder did ot an ech ogenic structure in the hilum of the liver nor evidence for mass or echogenic oci. There is evid ence for some degree of volume loss without focal mass. COMMON DUCT: Common bile duct is not dilated measuring up to 2 mm. GALLBLADDER: Surgically absent. PANCREAS: The visualized portions are within normal limits. RIGHT KIDNEY: No hydronephrosis, stone or mass. LEFT KIDNEY: No hydronephrosis, stone or mass. SPLEEN: Mild diffuse heterogeneous echotexture. Otherwise, normal in size. AORTA: Non aneurysmal. IVC: Within normal limits. MISCELLANEOUS: Bilateral pleural effusions and small amount of ascites. CONCLUSION: 1. Mild diffusely heterogeneous transplant liver echotexture with small amount of volume loss. No def initive evidence for portal venous gas or significant pneumobilia by ultrasound exam. However, examin ation was not specifically tailored for extended interrogation of the hepatic vasculature. 2. No sonographic evidence for intra-or extrahepatic ductal dilatation. 3. Trace ascites and small bilateral pleural effusions. Everton Cruz MD on March 22, 2017 at 10:28 Board Certified Radiologist. This report was verified electronically.
--- NOTE | 2017-03-22 11:38 | PD.ID.CON ---
History of Present Illness Service ID Consult Requested By Dr Tinajero Reason for Consult refractory shock Primary Care Physician [facility] Diagnoses: History of Present Illness 67-year-old male with past medical history of primary sclerosing cholangitis with orthotopic liver transplant at [facility] in 2001, hypertension, atrial fibrillation status post ablation, hyperlipidemia, diabetes mellitus presented to [facility] emergency department yday with altered mental status, fever, urinary incontinence. He was brought in by his . In the morning pt was doing well and in the evening his found him lethargic and minimally responsive. Pt had a temperature of 103 upon arrival to the emergency department. Per other providers note pt endorsed dysuria Pt apparent ly returned to his baseline mental status while in the ED and was conversant with his . He had no focal neurological deficits or witnessed seizure. His U/a has moderate bacteria, 13 WBC, 2 RBC. Pt has moderate leukocytosis with 9% bandemia, creatinine was slighlt up from baseline (1.6-2) @ 2.32 While in the ER he again became unresponsive, hypoxiac and hypotensive and was emergently intubated, put on mech vent and multiple pressors He was starte don multiple abx His blood clx is growing a GNB, christie is P Gstain on BAL fluid has also GNB Review of Systems ROS Limitations: Clinical Condition, Intubated, Altered Mental Status, Unresponsive Past Family Social History Allergies: Coded Allergies: *MDRO Multi-Drug Resistant Organism (Verified Adverse Reaction, Unknown, ) MRSA (heel wound) - 07/23/16 MRSA PCR Screen POSITIVE-03/22/17 Past Medical History Primary sclerosing cholangitis Liver transplant 2001 ([facility]) Ulcerative colitis ( states has not been an issue since before liver transplant) Hypertension Hyperlipidemia Diabetes mellitus BPH Hepatitis B and C Depression Anxiety Neuropathy Past Surgical History Liver transplant 2002 Debridement of bilateral feet Ablation for atrial fibrillation Active Ordered Medications Medications where reviewed in EMR Antibiotics Include: levaquin micafungin zosyn vanco Family History Both of his parents of "bone cancer" in their 60s Social History He smoked a pack of cigarettes per day for 20 years. Quit smoking in 1997. Does not use alcohol or illicit drugs. 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 His and son presented to the emergency department Was discharged to her [facility] after last hospitalization. Has been home for about 2 weeks and getting home health physical therapy. He is able to pivot Physical Exam Vital Signs Vital Signs Date Time Temp Pulse Resp B/P Pulse Ox O2 Delivery O2 Flow Rate FiO2 03/22/17 10:25 100 100 03/22/17 09:12 100 100 03/22/17 07:00 98.4 63 20 123/65 100 03/22/17 06:00 66 03/22/17 05:55 100 100 03/22/17 04:15 100 70 03/22/17 04:00 72 03/22/17 03:00 97.4 71 20 89/54 90 03/22/17 02:00 68 03/22/17 00:00 65 03/21/17 23:55 99.4 64 29 91/50 99 03/21/17 23:20 96 100 03/21/17 23:12 65 20 87/53 100 Ventilator 100 03/21/17 22:41 96 100 03/21/17 22:00 93 100 03/21/17 21:59 100 03/21/17 21:57 68 20 95/52 93 Ventilator 80 03/21/17 21:39 70 20 88/49 95 Ventilator 03/21/17 21:27 72 20 127/65 95 Ventilator 03/21/17 21:08 70 20 125/56 96 Ventilator 03/21/17 21:02 80 20 62/42 96 03/21/17 20:54 69 30 73/37 96 03/21/17 20:39 70 20 81/46 100 Ventilator 80 03/21/17 20:36 80 03/21/17 20:35 100 80 03/21/17 20:32 71 20 80/52 99 Ventilator 80 03/21/17 20:29 72 31 77/48 99 Ventilator 03/21/17 20:15 72 34 115/59 03/21/17 18:40 74 20 97 03/21/17 18:39 97 Nasal Cannula 2 03/21/17 17:46 100.1 71 20 113/61 99 Physical Exam CONSTITUTIONAL/GENERAL: This is an adequately nourished patient, in no apparent distress. TUBES/LINES/DRAINS: SKIN: No jaundice, rashes, or lesions. Skin temperature appropriate.Diaphoretic. HEAD: Atraumatic. Normocephalic. EYES: Pupils equal constricted and round . . No scleral icterus. No injection or drainage. Fundi not examined. ENT: Hearing grossly normal. Nose without bleeding or purulent drainage. Oral mucosae moist. Orally intubated NECK: Trachea midline. Supple, nontender. No palpable thyroid enlargement or nodularity. CARDIOVASCULAR: Regular rate and rhythm without murmurs, gallops, or rubs. No JVD. Periphery is poorly perfused RESPIRATORY/CHEST: Symmetric, respirations. Clear to auscultation. Breath sounds equal bilaterally. No wheezes, rales, or rhonchi. GASTROINTESTINAL: Abdomen soft, no reaction to palpation, + mildly-to- moderately distended. No hepato-splenomegaly, or palpable masses. No guarding. Bowel sounds present. GENITOURINARY: Without palpable bladder distension. Mcpherson catheter in place with scdan amount of urine MUSCULOSKELETAL: Extremities without clubbing, or edema + cyanosis of bl hands and feet Cold to touch feet, hands . No joint tenderness or effusion noted. No calf tenderness. No mottling or clubbing. LYMPHATICS: No palpable cervical or supraclavicular adenopathy. NEUROLOGICAL:Unresponsive. Not follows commands. PSYCHIATRIC: Unable to assess Laboratory Laboratory Tests Test 03/21/17 03/21/17 03/21/17 03/21/17 17:59 18:08 18:30 21:36 Blood Gas Puncture Site IV Blood Gas Patient Temperature 98.6 Venous Blood pH 7.38 Venous Blood Partial Pressure 32 CO2 Venous Blood Partial Pressure 29 O2 Venous Blood HCO3 19 Venous Blood Oxygen Saturation 52 Venous Blood Oxygen Content 7.3 Venous Blood Base Excess -5.6 Oxygen Delivery Device ROOM AIR Blood Gas Inspired Oxygen 21 White Blood Count 14.0 Red Blood Count 3.88 Hemoglobin 10.5 Hematocrit 32.6 Mean Corpuscular Volume 84.2 Mean Corpuscular Hemoglobin 27.1 Mean Corpuscular Hemoglobin 32.2 Concent Red Cell Distribution Width 15.5 Platelet Count 135 Mean Platelet Volume 8.7 Neutrophils (%) (Auto) 82.8 Lymphocytes (%) (Auto) 10.7 Monocytes (%) (Auto) 6.0 Eosinophils (%) (Auto) 0.3 Basophils (%) (Auto) 0.2 Neutrophils # (Auto) 11.6 Lymphocytes # (Auto) 1.5 Monocytes # (Auto) 0.8 Eosinophils # (Auto) 0.0 Basophils # (Auto) 0.0 CBC Comment AUTO DIFF Differential Total Cells 100 Counted Neutrophils % (Manual) 78 Band Neutrophils % 9 Lymphocytes % 6 Monocytes % 7 Neutrophils # (Manual) 12.2 Differential Comment FINAL DIFF MANUAL Platelet Estimate LOW Platelet Morphology Comment NORMAL Prothrombin Time 12.3 Prothromb Time International 1.1 Ratio Activated Partial 30.3 Thromboplast Time Sodium Level 132 Potassium Level 5.2 Chloride Level 106 Carbon Dioxide Level 17.0 Anion Gap 9 Blood Urea Nitrogen 73 Creatinine 2.32 Estimat Glomerular Filtration 28 Rate Random Glucose 204 Lactic Acid Level 1.6 2.6 Calcium Level 8.7 Magnesium Level 1.5 Total Bilirubin 0.7 Aspartate Amino Transf 45 (AST/SGOT) Alanine Aminotransferase 31 (ALT/SGPT) Alkaline Phosphatase 172 Total Creatine Kinase 53 Troponin I 0.03 Total Protein 8.7 Albumin 2.2 Lipase 100 B-Type Natriuretic Peptide 512 Urine Color YELLOW Urine Turbidity CLEAR Urine pH 5.5 Urine Specific [employer] 1.013 Urine Protein 100 Urine Glucose (UA) NEG Urine Ketones NEG Urine Occult Blood MOD Urine Nitrite NEG Urine Bilirubin NEG Urine Urobilinogen LESS THAN 2.0 Urine Leukocyte Esterase NEG Urine RBC 13 Urine WBC 2 Urine Amorphous Sediment RARE Urine Bacteria MOD Urine Hyaline Casts 1 Urine Mucus FEW Microscopic Urinalysis Comment CATH-CULTURE IND Random Cortisol 33.0 Test 03/21/17 03/21/17 03/22/17 03/22/17 22:25 22:50 01:30 01:45 Ammonia 28 Blood Gas Puncture Site RT FEMORAL Blood Gas Patient Temperature 98.6 Blood Gas HCO3 15 Blood Gas Base Excess -10.3 Blood Gas Oxygen Saturation 94 Arterial Blood pH 7.26 Arterial Blood Partial 36 Pressure CO2 Arterial Blood Partial 89 Pressure O2 Arterial Blood Oxygen Content 13.6 Arterial Blood 0.9 Carboxyhemoglobin Arterial Blood Methemoglobin 0.6 Blood Gas Hemoglobin 10.2 Oxygen Delivery Device VENTILATOR Blood Gas Ventilator Setting Blood Gas Inspired Oxygen 100 Lactic Acid Level 2.6 Total Creatine Kinase 54 Troponin I 0.06 Nasal Screen MRSA (PCR) MRSA DETECTED Test 03/22/17 03/22/17 03/22/17 03/22/17 04:55 05:40 08:15 09:15 Blood Gas Puncture Site KAILYN SWAN SUDEEP LINE ART LINE Blood Gas Patient Temperature 98.6 98.6 98.6 Blood Gas HCO3 15 15 Blood Gas Base Excess -13.6 -12.5 Blood Gas Oxygen Saturation 89 96 Arterial Blood pH 7.04 7.13 Arterial Blood Partial 60 47 Pressure CO2 Arterial Blood Partial 76 152 Pressure O2 Arterial Blood Oxygen Content 13.3 17.5 Arterial Blood 0.8 0.9 Carboxyhemoglobin Arterial Blood Methemoglobin 1.2 1.2 Blood Gas Hemoglobin 10.7 12.7 Oxygen Delivery Device VENTILATOR VENTILATOR VENTILATOR Blood Gas Ventilator Setting PRVC20/500/1.0/+8 PRVC20/600/1.1/+8 PRVC 20/600/1.1/+8 Blood Gas Inspired Oxygen 70 100 100 White Blood Count 10.2 Red Blood Count 3.80 Hemoglobin 10.5 Hematocrit 32.9 Mean Corpuscular Volume 86.6 Mean Corpuscular Hemoglobin 27.6 Mean Corpuscular Hemoglobin 31.9 Concent Red Cell Distribution Width 15.3 Platelet Count 182 Mean Platelet Volume 8.7 Neutrophils (%) (Auto) 81.7 Lymphocytes (%) (Auto) 12.2 Monocytes (%) (Auto) 5.9 Eosinophils (%) (Auto) 0.0 Basophils (%) (Auto) 0.2 Neutrophils # (Auto) 8.3 Lymphocytes # (Auto) 1.2 Monocytes # (Auto) 0.6 Eosinophils # (Auto) 0.0 Basophils # (Auto) 0.0 CBC Comment DIFF FINAL Differential Comment Prothrombin Time 14.7 Prothromb Time International 1.3 Ratio Sodium Level 139 Potassium Level 5.5 Chloride Level 112 Carbon Dioxide Level 18.7 Anion Gap 8 Blood Urea Nitrogen 62 Creatinine 2.31 Estimat Glomerular Filtration 28 Rate Random Glucose 307 Lactic Acid Level 2.6 Calcium Level 7.1 Protein Corrected Calcium 7.5 Phosphorus Level 4.8 Magnesium Level 1.3 Total Bilirubin 0.7 Aspartate Amino Transf 42 (AST/SGOT) Alanine Aminotransferase 28 (ALT/SGPT) Alkaline Phosphatase 114 Total Creatine Kinase 64 Troponin I 0.06 B-Type Natriuretic Peptide 2188 Total Protein 6.3 Albumin 1.5 Venous Blood pH 7.12 Venous Blood Partial Pressure 55 CO2 Venous Blood Partial Pressure 46 O2 Venous Blood HCO3 17 Venous Blood Oxygen Saturation 76 Venous Blood Oxygen Content 11.4 Venous Blood Base Excess -10.7 Date/Time Procedure Status Source Growth 03/22/17 06:05 Gram Stain Received Bronchial Washings Other Pending 03/22/17 06:05 Bronchial Culture Received Bronchial Washings Other Pending 03/22/17 06:05 Fungal Smear Worksheet Bronchial Washings Other Pending 03/22/17 06:05 Fungal Culture Worksheet Bronchial Washings Other Pending 03/22/17 06:05 Acid Fast Stain Received Bronchial Washings Other Pending 03/22/17 06:05 Mycobacterial Culture Received Bronchial Washings Other Pending 03/21/17 18:30 Urine Culture Received Urine Catheterized Urine Pending 03/21/17 18:30 Legionella Antigen - Final Complete Urine Catheterized Urine PRESUMPTIVE NEGATIVE FOR LEGIONELLA P... 03/21/17 18:30 Streptococcus pneumoniae Antigen (M - Final Complete Urine Catheterized Urine PRESUMPTIVE NEGATIVE FOR STREPTOCOCCU... 03/21/17 18:10 Aerobic Blood Culture - Preliminary Resulted Blood Peripheral NO GROWTH IN 1 DAY 03/21/17 18:10 Anaerobic Blood Culture - Preliminary Resulted Blood Peripheral NO GROWTH IN 1 DAY 03/21/17 18:08 Aerobic Blood Culture Resulted Blood Peripheral Pending 03/21/17 18:08 Anaerobic Blood Culture - Preliminary Resulted Blood Peripheral NO GROWTH IN 1 DAY Result Diagram: 03/22/1740 03/22/17539 Imaging Last Impressions Abdomen Ultrasound 03/22/172122 Signed Impressions: Service Date/Time: Wednesday, March 22, 2017 08:14 - CONCLUSION: 1. Mild diffusely heterogeneous transplant liver echotexture with small amount of volume loss. No definitive evidence for portal venous gas or significant pneumobilia by ultrasound exam. However, examination was not specifically tailored for extended interrogation of the hepatic vasculature. 2. No sonographic evidence for intra-or extrahepatic ductal dilatation. 3. Trace ascites and small bilateral pleural effusions. Everton Cruz MD Chest X-Ray 03/22/17 0000 Signed Impressions: Service Date/Time: Wednesday, March 22, 2017 02:37 - CONCLUSION: Infiltrate in the left lung inferiorly. Left subclavian Central line in good position. Tubes and catheter is in good position. Valerio Jerome MD Abdomen X-Ray 03/22/17 0000 Signed Impressions: Service Date/Time: Wednesday, March 22, 2017 07:00 - CONCLUSION: No findings characteristic of perforation. Nasogastric tube coiled within the fundus of the stomach. Emilio Snow MD Head CT 03/21/17 0000 Signed Impressions: Service Date/Time: Tuesday, March 21, 2017 23:27 - CONCLUSION: Normal examination. Valerio Jerome MD Chest CT 03/21/17 0000 Signed Impressions: Service Date/Time: Tuesday, March 21, 2017 23:27 - CONCLUSION: Dense infiltrate almost complete opacification of the left lower lobe. Small amount of airspace disease in the lingula in the right middle lobe. Bilateral pleural effusions right greater left. Some air within the bell hepatis CT abdomen is recommended. Valerio Jerome MD Abdomen/Pelvis CT 03/21/17 0000 Signed Impressions: Service Date/Time: Tuesday, March 21, 2017 23:27 - CONCLUSION: Moderate stool throughout the colon. Small moderate of the bell hepatis I believe is biliary air. Other solid organs are unremarkable. Dense infiltrate left lower lobe within the lung. Valerio Jerome MD Assessment and Plan Assessment and Plan Sepsis, septic shock Refractory Source is likley bacteremiic gram negative PNA LLL PNA , gram negative Gram negative bacteremia Acute VDRF ARF on CKD Immunosuppressed, sp liver transplant Critically ill, unstable REC's: cont zosyn, levaquine - cont other abx for now (vanco, micafungin) - will follow christie on GNB in the blood - will adjust abx per clx Discussed Condition With Celestina Yoder MD Mar 22, 2017 11:38
[2017-03-22] MEDS ORDERED: MISC INFORMATION OTHER ONE (12:00)
[2017-03-22] MEDS ORDERED: DEXTROSE 50% IN WATER 50 ML VIAL(D50) IV PUSH PRN (12:00)
[2017-03-22] MEDS: INSULIN REGULAR 100 UNITS/100 ML NS ALGORITHM 4 IV SCH ×2 (12:11)
[2017-03-22 13:08] LABS: BLOOD GAS BASE EXCESS -13.8 mmol/L (-2-2); BLOOD GAS HCO3 14 mmol/L (22-26); BLOOD GAS METHEMOGLOBIN 1.2 % (0-2); BLOOD GAS O2 HGB SATURATION 88 % (90-100); BLOOD GAS OXYGEN CONTENT 15.4 Vol % (12.0-20.0); BLOOD GAS PCO2 42 mmHg (38-42); BLOOD GAS PO2 65 mmHg (61-120); BLOOD GAS TOTAL HGB 12.4 G/DL (12.0-16.0); TEMP CORR TO 98.6
[2017-03-22 13:09] LABS: CRITICAL VALUE YES; OXYGEN DEVICE VENTILATOR
[2017-03-22 13:11] LABS: FIO2 60 %; VENT SETTINGS PRVC25/500/1.1/+5
[2017-03-22 13:12] LABS: DRAW SITE ART LINE; NUMBER OF ARTERIAL PUNCTURES 0; ULNAR PULSE PRESENT
[2017-03-22 13:13] LABS: STAT NO
--- NOTE | 2017-03-22 13:26 | EKG ---
Date Performed: 03/21/2017 Time Performed: 18:41:48 PTAGE: 67 years EKG: Sinus rhythm MARKED LEFT AXIS DEVIATION LEFT VENTRICULAR HYPERTROPHY AND ST-T CHANGE POSSIBLE ANTEROSEPTAL MYOCAR DIAL INFARCTION ABNORMAL ECG Compared to prior tracing no significant change PREVIOUS TRACING : 03/03/2017 19.30 DOCTOR: Rubén Andrews Interpretating Date/Time 03/22/2017 13:23:13
[2017-03-22] MEDS ORDERED: ASP: Documented ESBL, MDR A baumannii or P. aeruginosa PRN (14:00)
[2017-03-22] MEDS ORDERED: MISCELLANEOUS PHARMACY INFORMATION XX PRN (14:00)
--- NOTE | 2017-03-22 14:01 | EKG ---
Date Performed: 03/22/2017 Time Performed: 09:46:26 PTAGE: 67 years EKG: Sinus rhythm LOW QRS VOLTAGE IN PRECORDIAL LEADS POSSIBLE RIGHT VENTRICULAR CONDUCTION DELAY INFERIOR MYOCARDIAL INFARCTION , PROBABLY OLD ST ELEVATION, CONSIDER ANTERIOR INJURY Since PREVIOUS TRACING , no significant change noted PREVIOUS TRACIN03/21/2017 18.41 DOCTOR: Rubén Andrews Interpretating Date/Time 03/22/2017 14:00:39
--- NOTE | 2017-03-22 14:03 | HHI.PR ---
Addendum to Inpatient Note Additional Information Blood clx + Acinetobacter Resistance patterns not reliable untill MICs availkathya orona meropenem, Celestina Mcallister MD Mar 22, 2017 14:03
[2017-03-22] MEDS ORDERED: Tobramycin Consult Pharmacy 1 EA OTHER SCH (14:15)
--- NOTE | 2017-03-22 14:28 | ECHRPT ---
Indication: SHORTNESS OF BREATH CONCLUSIONS Structurally normal tricuspid valve. There is trace tricuspid valve regurgitation. There is estimated mild pulmonary hypertension present (range 40-50 mmHg). Normal left ventricular size. Mild concentric left ventricular hypertrophy. No regional wall motion abnormalities are present. The right ventricular systoilc function is mildly decreased. The mitral valve is not well visualized. Trace mitral valve regurgitation. Moderate mitral annular calcification. BP: 123 / 65 HR: 63 Rhythm: MEASUREMENTS (Male / Female) Normal Values Technical Quality: 2D ECHO LVOT Diameter 1.6 cm Aortic Root Diameter 2.6 cm M-MODE AV Cusp Separation MM 1.7 cm DOPPLER AV Peak Velocity 128.0 cm/s AV Peak Gradient 6.6 mmHg AV Mean Gradient 3.0 mmHg AV Velocity Time Integral 21.0 cm LVOT Peak Velocity 105.0 cm/s LVOT Peak Gradient 4.4 mmHg LVOT Velocity Time Integral 15.5 cm LVOT Cardiac Index 859.9 cm/minm AV Area Cont Eq vti 1.5 cm AV Area Cont Eq pk 1.6 cm Mitral E Point Velocity 73.5 cm/s Mitral A Point Velocity 60.2 cm/s Mitral E to A Ratio 1.2 LV E' Lateral Velocity 5.1 cm/s Mitral E to LV E' Lateral Ratio 14.5 LV E' Septal Velocity 3.0 cm/s Mitral E to LV E' Septal Ratio 24.2 TR Peak Velocity 307.0 cm/s TR Peak Gradient 37.7 mmHg PV Peak Velocity 70.7 cm/s PV Peak Gradient 2.0 mmHg FINDINGS LEFT VENTRICLE Normal left ventricular size. Mild concentric left ventricular hypertrophy. No regional wall motion abnormalities are present. RIGHT VENTRICLE The right ventricular systoilc function is mildly decreased. LEFT ATRIUM The left atrial size is normal. RIGHT ATRIUM The right atrial size is normal. AORTA The aortic root and proximal ascending aorta are normal in size on limited imaging. MITRAL VALVE The mitral valve is not well visualized. Trace mitral valve regurgitation. Moderate mitral annular calcification. TRICUSPID VALVE Structurally normal tricuspid valve. There is trace tricuspid valve regurgitation. There is estimated mild pulmonary hypertension present (range 40-50 mmHg). PULMONARY VALVE No pulmonary valve regurgitation or stenosis. PERICARDIUM No pericardial effusion. Terrell Orozco MD (Electronically Signed) Final Date:22 March 2017 14:28
--- NOTE | 2017-03-22 14:56 | HHI.PR ---
Subjective Subjective Notes Intubated/Sedated On multiple pressors for BP support Objective Vitals/I&O Vital Signs Date Time Temp Pulse Resp B/P Pulse Ox O2 Delivery O2 Flow Rate FiO2 03/22/17 14:00 69 03/22/17 12:24 99 60 03/22/17 12:00 97.8 20 101/60 03/21/17 23:12 Ventilator 03/21/17 18:39 2 Labs Laboratory Tests Test 03/21/17 03/21/17 03/21/17 03/21/17 17:59 18:08 18:30 21:36 Blood Gas Puncture Site IV Blood Gas Patient Temperature 98.6 Venous Blood pH 7.38 Venous Blood Partial Pressure 32 CO2 Venous Blood Partial Pressure 29 O2 Venous Blood HCO3 19 Venous Blood Oxygen Saturation 52 Venous Blood Oxygen Content 7.3 Venous Blood Base Excess -5.6 Oxygen Delivery Device ROOM AIR Blood Gas Inspired Oxygen 21 White Blood Count 14.0 Red Blood Count 3.88 Hemoglobin 10.5 Hematocrit 32.6 Mean Corpuscular Volume 84.2 Mean Corpuscular Hemoglobin 27.1 Mean Corpuscular Hemoglobin 32.2 Concent Red Cell Distribution Width 15.5 Platelet Count 135 Mean Platelet Volume 8.7 Neutrophils (%) (Auto) 82.8 Lymphocytes (%) (Auto) 10.7 Monocytes (%) (Auto) 6.0 Eosinophils (%) (Auto) 0.3 Basophils (%) (Auto) 0.2 Neutrophils # (Auto) 11.6 Lymphocytes # (Auto) 1.5 Monocytes # (Auto) 0.8 Eosinophils # (Auto) 0.0 Basophils # (Auto) 0.0 CBC Comment AUTO DIFF Differential Total Cells 100 Counted Neutrophils % (Manual) 78 Band Neutrophils % 9 Lymphocytes % 6 Monocytes % 7 Neutrophils # (Manual) 12.2 Differential Comment FINAL DIFF MANUAL Platelet Estimate LOW Platelet Morphology Comment NORMAL Prothrombin Time 12.3 Prothromb Time International 1.1 Ratio Activated Partial 30.3 Thromboplast Time Sodium Level 132 Potassium Level 5.2 Chloride Level 106 Carbon Dioxide Level 17.0 Anion Gap 9 Blood Urea Nitrogen 73 Creatinine 2.32 Estimat Glomerular Filtration 28 Rate Random Glucose 204 Lactic Acid Level 1.6 2.6 Calcium Level 8.7 Magnesium Level 1.5 Total Bilirubin 0.7 Aspartate Amino Transf 45 (AST/SGOT) Alanine Aminotransferase 31 (ALT/SGPT) Alkaline Phosphatase 172 Total Creatine Kinase 53 Troponin I 0.03 Total Protein 8.7 Albumin 2.2 Lipase 100 B-Type Natriuretic Peptide 512 Urine Color YELLOW Urine Turbidity CLEAR Urine pH 5.5 Urine Specific [place] 1.013 Urine Protein 100 Urine Glucose (UA) NEG Urine Ketones NEG Urine Occult Blood MOD Urine Nitrite NEG Urine Bilirubin NEG Urine Urobilinogen LESS THAN 2.0 Urine Leukocyte Esterase NEG Urine RBC 13 Urine WBC 2 Urine Amorphous Sediment RARE Urine Bacteria MOD Urine Hyaline Casts 1 Urine Mucus FEW Microscopic Urinalysis Comment CATH-CULTURE IND Random Cortisol 33.0 Tacrolimus (Prograf) Level 5.2 Test 03/21/17 03/21/17 03/22/17 03/22/17 22:25 22:50 01:30 01:45 Ammonia 28 Blood Gas Puncture Site RT FEMORAL Blood Gas Patient Temperature 98.6 Blood Gas HCO3 15 Blood Gas Base Excess -10.3 Blood Gas Oxygen Saturation 94 Arterial Blood pH 7.26 Arterial Blood Partial 36 Pressure CO2 Arterial Blood Partial 89 Pressure O2 Arterial Blood Oxygen Content 13.6 Arterial Blood 0.9 Carboxyhemoglobin Arterial Blood Methemoglobin 0.6 Blood Gas Hemoglobin 10.2 Oxygen Delivery Device VENTILATOR Blood Gas Ventilator Setting Blood Gas Inspired Oxygen 100 Lactic Acid Level 2.6 Total Creatine Kinase 54 Troponin I 0.06 Nasal Screen MRSA (PCR) MRSA DETECTED Test 03/22/17 03/22/17 03/22/17 03/22/17 04:55 05:40 08:15 09:15 Blood Gas Puncture Site KAILYN SWAN SUDEEP LINE ART LINE Blood Gas Patient Temperature 98.6 98.6 98.6 Blood Gas HCO3 15 15 Blood Gas Base Excess -13.6 -12.5 Blood Gas Oxygen Saturation 89 96 Arterial Blood pH 7.04 7.13 Arterial Blood Partial 60 47 Pressure CO2 Arterial Blood Partial 76 152 Pressure O2 Arterial Blood Oxygen Content 13.3 17.5 Arterial Blood 0.8 0.9 Carboxyhemoglobin Arterial Blood Methemoglobin 1.2 1.2 Blood Gas Hemoglobin 10.7 12.7 Oxygen Delivery Device VENTILATOR VENTILATOR VENTILATOR Blood Gas Ventilator Setting PRVC20/500/1.0/+8 PRVC20/600/1.1/+8 PRVC 20/600/1.1/+8 Blood Gas Inspired Oxygen 70 100 100 White Blood Count 10.2 Red Blood Count 3.80 Hemoglobin 10.5 Hematocrit 32.9 Mean Corpuscular Volume 86.6 Mean Corpuscular Hemoglobin 27.6 Mean Corpuscular Hemoglobin 31.9 Concent Red Cell Distribution Width 15.3 Platelet Count 182 Mean Platelet Volume 8.7 Neutrophils (%) (Auto) 81.7 Lymphocytes (%) (Auto) 12.2 Monocytes (%) (Auto) 5.9 Eosinophils (%) (Auto) 0.0 Basophils (%) (Auto) 0.2 Neutrophils # (Auto) 8.3 Lymphocytes # (Auto) 1.2 Monocytes # (Auto) 0.6 Eosinophils # (Auto) 0.0 Basophils # (Auto) 0.0 CBC Comment DIFF FINAL Differential Comment Prothrombin Time 14.7 Prothromb Time International 1.3 Ratio Sodium Level 139 Potassium Level 5.5 Chloride Level 112 Carbon Dioxide Level 18.7 Anion Gap 8 Blood Urea Nitrogen 62 Creatinine 2.31 Estimat Glomerular Filtration 28 Rate Random Glucose 307 Lactic Acid Level 2.6 Calcium Level 7.1 Protein Corrected Calcium 7.5 Phosphorus Level 4.8 Magnesium Level 1.3 Total Bilirubin 0.7 Aspartate Amino Transf 42 (AST/SGOT) Alanine Aminotransferase 28 (ALT/SGPT) Alkaline Phosphatase 114 Total Creatine Kinase 64 Troponin I 0.06 B-Type Natriuretic Peptide 2188 Total Protein 6.3 Albumin 1.5 Venous Blood pH 7.12 Venous Blood Partial Pressure 55 CO2 Venous Blood Partial Pressure 46 O2 Venous Blood HCO3 17 Venous Blood Oxygen Saturation 76 Venous Blood Oxygen Content 11.4 Venous Blood Base Excess -10.7 Test 03/22/17 12:50 Blood Gas Puncture Site ART LINE Blood Gas Patient Temperature 98.6 Blood Gas HCO3 14 Blood Gas Base Excess -13.8 Blood Gas Oxygen Saturation 88 Arterial Blood pH 7.13 Arterial Blood Partial 42 Pressure CO2 Arterial Blood Partial 65 Pressure O2 Arterial Blood Oxygen Content 15.4 Arterial Blood 1.0 Carboxyhemoglobin Arterial Blood Methemoglobin 1.2 Blood Gas Hemoglobin 12.4 Oxygen Delivery Device VENTILATOR Blood Gas Ventilator Setting PRVC25/500/1.1/+5 Blood Gas Inspired Oxygen 60 Date/Time Procedure Status Source Growth 03/22/17 06:05 Gram Stain - Final Resulted Bronchial Washings Other 03/22/17 06:05 Bronchial Culture Resulted Bronchial Washings Other Pending 03/22/17 06:05 Fungal Smear Worksheet Bronchial Washings Other Pending 03/22/17 06:05 Fungal Culture Worksheet Bronchial Washings Other Pending 03/22/17 06:05 Acid Fast Stain Received Bronchial Washings Other Pending 03/22/17 06:05 Mycobacterial Culture Received Bronchial Washings Other Pending 03/21/17 18:30 Urine Culture - Preliminary Resulted Urine Catheterized Urine NO GROWTH IN 24 HOURS. 03/21/17 18:30 Legionella Antigen - Final Complete Urine Catheterized Urine PRESUMPTIVE NEGATIVE FOR LEGIONELLA P... 03/21/17 18:30 Streptococcus pneumoniae Antigen (M - Final Complete Urine Catheterized Urine PRESUMPTIVE NEGATIVE FOR STREPTOCOCCU... 03/21/17 18:10 Aerobic Blood Culture - Preliminary Resulted Blood Peripheral NO GROWTH IN 1 DAY 03/21/17 18:10 Anaerobic Blood Culture - Preliminary Resulted Blood Peripheral NO GROWTH IN 1 DAY Cardiovascular: Regular Lungs: Clear Abdomen: Non-distended, Non-tender Extremities: Other (evidence of decreased perfusion in BUE and BLE ) Narrative Exam Of note: abdominal exam is limited due to Nimbex infusion A/P Assessment and Plan 67 year old male in septic shock; question of mesenteric ischemia -Follow abdominal exams---limited due to Nimbex infusion -KUB reviewed---no evidence of perforation -Repeat CT abd/pelvis if patient stable to travel to radiology -NPO -ID following -CCM following Attending Statement patient seen at bedside limited exam due to nimbex non surgical at this time Attestation The exam, history, and the medical decision-making described in the above note were completed with the assistance of the mid-level provider. I reviewed and agree with the findings presented. I attest that I had a [id number] encounter with the patient on the same day, and personally performed and documented my assessment and findings in the medical record. Mya Rapp Mar 22, 2017 14:56 Luis Conklin MD Mar 27, 2017 23:31
--- NOTE | 2017-03-22 16:21 | HHI.GIFU ---
GI Follow-up Note Consult Follow-up Call placed to Tiana Lo, Candle Molder at [facility] , awaiting call back. Entered by: Kenisha Pinto Mar 22, 2017 16:21
--- NOTE | 2017-03-22 17:06 | RADRPT ---
EXAM DATE/TIME: 03/22/2017 15:37 [facility] COMPARISON: CT THORAX W/O CONTRAST, March 21, 2017, 23:27. INDICATIONS : Pneumonia. RADIATION DOSE: 6.53 CTDIvol (mGy) ; Combined studies - Thorax/Abdomen/Pelvis MEDICAL HISTORY : Non-responsive. SURGICAL HISTORY : Non-responsive. ENCOUNTER: Initial ACUITY: 1 day PAIN SCALE: Non-responsive LOCATION: Bilateral chest TECHNIQUE: Volumetric scanning of the chest was performed. Using automated exposure control and adjustment of t he mA and/or kV according to patient size, radiation dose was kept as low as reasonably achievable to obtain optimal diagnostic quality images. DICOM format image data is available electronically for r eview and comparison. FINDINGS: There is ascites in the visualized upper abdomen and there is a small pleural effusion bilateral ly. Dense air space consolidation is present in the left lower lobe which has progressed since the pr ior examination with slight consolidation right lower lobe. There is also mild vague infiltrate in th e left upper lobe. The rest of the examination has not significantly changed. CONCLUSION: There is ascites and bilateral pleural effusion and worsening left lung consolidation. Indu Cunningham MD on March 22, 2017 at 17:00 Board Certified Radiologist. This report was verified electronically.
[2017-03-22] MEDS: MIDAZOLAM 100 MG/ML INJ 100 ML IV SCH (17:08)
[2017-03-22] MEDS: AMPICILLIN-SULBACTAM INJ 3 GM in SODIUM CHLORIDE 0.9% INJ 100 ML IV SCH (17:08)
[2017-03-22] MEDS: fentaNYL DRIP 250 ML IV SCH (17:09)
--- NOTE | 2017-03-22 17:12 | RADRPT ---
EXAM DATE/TIME: 03/22/2017 15:40 [facility] COMPARISON: CT ABDOMEN & PELVIS W/O CONTRAST, March 21, 2017, 23:27. INDICATIONS : Abdominal pain. ORAL CONTRAST: No oral contrast ingested. RADIATION DOSE: 6.39 CTDIvol (mGy) ; Combined studies - Thorax/Abdomen/Pelvis MEDICAL HISTORY : Non-responsive. SURGICAL HISTORY : Non-responsive. ENCOUNTER: Initial ACUITY: 1 day PAIN SCALE: 0/10 LOCATION: Bilateral abdomen TECHNIQUE: Volumetric scanning of the abdomen and pelvis was performed. Using automated exposure control and ad justment of the mA and/or kV according to patient size, radiation dose was kept as low as reasonably achievable to obtain optimal diagnostic quality images. DICOM format image data is available electro nically for review and comparison. FINDINGS: CT Abdomen: The liver, spleen, pancreas, right kidney, adrenals are unremarkable. There is no evidenc e for any appreciable pathological adenopathy, or bowel obstruction. There are findings in the visual ized lower chest discussed on the patient's chest CT. There is slight fluid within the peritoneal cav ity with haziness to the mesenteric fat planes may be due to congestion. NG tube is present with tip in the stomach. Chronic vascular calcifications are present involving the aorta, iliac arteries witho ut any significant stenosis or aneurysmal dilatations for technique. There is a tiny 4-5 mm nonobstru cting stone versus basilar calcification in the left kidney. CT pelvis: There is no evidence for mass, abscess formation, or any significant adenopathy within the pelvis. There is moderate amount of stool throughout the colon. CONCLUSION: Increase in ascites and mesenteric congestion since the prior exam. Indu Cunningham MD on March 22, 2017 at 17:05 Board Certified Radiologist. This report was verified electronically.
[2017-03-22] MEDS: NOREPINEPHRINE INJ 8 MG in DEXTROSE 5% IN WATE 500 ML INJ 500 ML IV SCH ×4 (17:31→19:21)
--- NOTE | 2017-03-22 18:00 | MG ---
cc: NORMA BAUTISTA M.D. Lab No: [id number] Date: Age: 67 Sex: M Race: HISTORY: A 67-year-old man with hypertension, atrial fibrillation, anxiety on a ventilator. DESCRIPTION OF THE RECORDING: Diffuse 4 to 5 hertz low amplitude rhythm is noted throughout the entire recording. Photic stimulation was performed without significant posterior driving. No epileptiform or seizure activity is noted. There were no hemisphere asymmetries. IMPRESSION: Diffusely low recording, could be medication effect as the patient was on fentanyl. No hemisphere asymmetries are noted. No epileptiform or seizure activity seen. MD FANNY Terrazas/ALVARO /5:05 PM /6:00 PM
[2017-03-22] MEDS: MEROPENEM INJ 1,000 MG in SODIUM CHLORIDE 0.9% INJ 100 ML IV SCH (18:14)
[2017-03-22] MEDS: VASOPRESSIN INJ 40 UNITS in DEXTROSE 5% IN WATER 100ML INJ 98 ML IV SCH ×4 (19:21)
[2017-03-22 19:22] LABS: BLOOD GAS BASE EXCESS -10.9 mmol/L (-2-2); BLOOD GAS CARBOXYHEMOGLOBIN 1.1 % (0-4); BLOOD GAS HCO3 17 mmol/L (22-26); BLOOD GAS METHEMOGLOBIN 1.2 % (0-2); BLOOD GAS O2 HGB SATURATION 90 % (90-100); BLOOD GAS OXYGEN CONTENT 12.2 Vol % (12.0-20.0); BLOOD GAS PCO2 52 mmHg (38-42); BLOOD GAS PO2 66 mmHg (61-120); BLOOD GAS TOTAL HGB 9.6 G/DL (12.0-16.0); TEMP CORR TO 98.6
[2017-03-22 19:23] LABS: CRITICAL VALUE YES; OXYGEN DEVICE VENTILATOR
[2017-03-22 19:24] LABS: DRAW SITE ART LINE; FIO2 60 %; VENT SETTINGS PRVC/AC
[2017-03-22 19:25] LABS: STAT NO
[2017-03-22] MEDS ORDERED: SODIUM CHLORIDE 0.9% IV ONE (20:00)
[2017-03-22] MEDS ORDERED: TOBRAMYCIN IV ONE (20:00)
--- NOTE | 2017-03-22 20:12 | HHI.CCPN ---
Subjective Remarks/Hospital Course Hospital Course: 67-year-old male with past medical history of primary sclerosing cholangitis with orthotopic liver transplant at [facility] in 2001, hypertension, atrial fibrillation status post ablation, hyperlipidemia, diabetes mellitus who presents to [facility] emergency department with altered mental status, fever, urinary incontinence. He was brought in by his . She states that this morning he was doing well and participated with home health physical therapy. When his returned home this evening she found him lethargic and minimally responsive. He had a cup full of mucus and when she inquired about it he stated that he had vomited. He refused ambulance transport. He had a temperature of 103 upon arrival to the emergency department. His states he told ED staff that he had experienced dysuria starting today. He has h/o BPH and UTI in the past. He has chronic low back pain. He denies headache or neck stiffness. His states he returned to his baseline mental status while in the ED and was conversant with her. He had no focal weakness and no witnessed seizure. His ED workup demonstrated U/a with moderate bacteria, 13 WBC, 2 RBC. White blood cell count was 14 with 9% bands, hemoglobin 10.5, platelets 135, AST 45, ALT 31, alkaline phosphatase 172, PT 12.3, INR 1.1 . Creatinine was 2.32 (baseline about 1.6-2), BUN 73, sodium 132 , potassium 5.2, bicarbonate 17 His initial lactic acid was 1.6. He was given Zosyn and 3 L NS bolus and admitted to the hospitalist service. He was complaining of chronic back pain and was anxious/agitated so was given Ativan 0.5 mg IV (chronically on Xanax). ED physician Dr. Orozco was called in because he became unresponsive and he was hypopneic with inadequate respirations. Sats were in the 60s. He complained to his that he could not see. He was hypotensive in 70s and post-intubation BP dropped to 60s/40s and [facility] was called. CVL was placed and he was started on levophed and vasopressin. He is awake on vent and answering questions yes/no. Subjective: 03/22: patient in refractory distributive shock. I evaluated the patient multiple times throughout the day beginning around 0600 and at frequent intervals. Patient remains acidotic on maximal vasopressor therapy. I had discussions with Dr. Anaya with ID, cultures are growing out Acinetobacter. abx changed to tobra, vanc, meropenem, levaquin, unasyn. continued ivf resuscitation throughout the day guided by frequent IVC and cardiac echo. formal echo with grossly preserved LV function and mild RV dysfunction. but IVC continued to be collapsable. acute renal failure worsening and acidosis severe. started on bicarb drip. repeat CT abd/pelvis performed. I personally transported patient down to CT scanner given how severely unstable the patient was. Discussed with general surgery and interval CT scan is necessary to eval for intra-abdominal source of sepsis. interval CT without change. most likely Acinetobacter pneumonia with overwhelming septic shock. discussed with at length multiple times today regarding his life-threatening infection and his high risk of mortality. Objective Vital Signs Date Time Temp Pulse Resp B/P Pulse Ox O2 Delivery O2 Flow Rate FiO2 03/22/17 18:00 74 03/22/17 16:02 100 100 03/22/17 16:00 97.9 25 116/75 03/21/17 23:12 Ventilator 03/21/17 18:39 2 Intake and Output 03/21/17 03/21/17 03/22/17 08:00 16:00 00:00 Output Total 425 ml Balance -425 ml Result Diagram: 03/22/17 0540 03/22/17 0540 Other Results Microbiology Date/Time Procedure Status Source Growth 03/21/17 18:30 Legionella Antigen - Final Complete Urine Catheterized Urine PRESUMPTIVE NEGATIVE FOR LEGIONELLA P... 03/21/17 18:30 Streptococcus pneumoniae Antigen (M - Final Complete Urine Catheterized Urine PRESUMPTIVE NEGATIVE FOR STREPTOCOCCU... Laboratory Tests Test 03/21/17 03/22/17 03/22/17 03/22/17 22:50 04:55 08:15 09:15 Blood Gas Puncture Site RT FEMORAL KAILYN SWAN SUDEEP LINE ART LINE Blood Gas Patient Temperature 98.6 98.6 98.6 98.6 Blood Gas HCO3 15 mmol/L 15 mmol/L 15 mmol/L (22-26) (22-26) (22-26) Blood Gas Base Excess -10.3 mmol/L -13.6 mmol/L -12.5 mmol/L (-2-2) (-2-2) (-2-2) Blood Gas Oxygen Saturation 94 % (90-100) 89 % (90-100) 96 % (90-100) Arterial Blood pH 7.26 7.04 7.13 (7.380-7.420) (7.380-7.420) (7.380-7.420) Arterial Blood Partial 36 mmHg (38-42) 60 mmHg (38-42) 47 mmHg (38-42) Pressure CO2 Arterial Blood Partial 89 mmHG 76 mmHg 152 mmHg Pressure O2 (61-120) (61-120) (61-120) Arterial Blood Oxygen Content 13.6 Vol % 13.3 Vol % 17.5 Vol % (12.0-20.0) (12.0-20.0) (12.0-20.0) Arterial Blood 0.9 % (0-4) 0.8 % (0-4) 0.9 % (0-4) Carboxyhemoglobin Arterial Blood Methemoglobin 0.6 % (0-2) 1.2 % (0-2) 1.2 % (0-2) Blood Gas Hemoglobin 10.2 G/DL 10.7 G/DL 12.7 G/DL (12.0-16.0) (12.0-16.0) (12.0-16.0) Oxygen Delivery Device VENTILATOR VENTILATOR VENTILATOR VENTILATOR Blood Gas Ventilator Setting PRVC20/500/1.0/+8 PRVC20/600/1.1/+8 PRVC 20/600/1.1/+8 Blood Gas Inspired Oxygen 100 % 70 % 100 % 100 % Venous Blood pH 7.12 (7.360-7.400) Venous Blood Partial Pressure 55 mmHg (44-48) CO2 Venous Blood Partial Pressure 46 mmHg (35-40) O2 Venous Blood HCO3 17 mmol/L (22-26) Venous Blood Oxygen Saturation 76 % (70-76) Venous Blood Oxygen Content 11.4 Vol % (9.0-17.0) Venous Blood Base Excess -10.7 mmol/L (-2-2) Test 03/22/17 03/22/17 12:50 19:09 Blood Gas Puncture Site ART LINE ART LINE Blood Gas Patient Temperature 98.6 98.6 Blood Gas HCO3 14 mmol/L 17 mmol/L (22-26) (22-26) Blood Gas Base Excess -13.8 mmol/L -10.9 mmol/L (-2-2) (-2-2) Blood Gas Oxygen Saturation 88 % (90-100) 90 % (90-100) Arterial Blood pH 7.13 7.13 (7.380-7.420) (7.380-7.420) Arterial Blood Partial 42 mmHg (38-42) 52 mmHg (38-42) Pressure CO2 Arterial Blood Partial 65 mmHg 66 mmHg Pressure O2 (61-120) (61-120) Arterial Blood Oxygen Content 15.4 Vol % 12.2 Vol % (12.0-20.0) (12.0-20.0) Arterial Blood 1.0 % (0-4) 1.1 % (0-4) Carboxyhemoglobin Arterial Blood Methemoglobin 1.2 % (0-2) 1.2 % (0-2) Blood Gas Hemoglobin 12.4 G/DL 9.6 G/DL (12.0-16.0) (12.0-16.0) Oxygen Delivery Device VENTILATOR VENTILATOR Blood Gas Ventilator Setting PRVC25/500/1.1/+5 PRVC/AC Blood Gas Inspired Oxygen 60 % 60 % Objective Remarks GENERAL: Chronically ill-appearing 67-year-old male who is orotracheally intubated. severe distress. SKIN: Warm and dry. HEAD: Atraumatic. Normocephalic. EYES: Pupils equal and round, 2 mm and reactive bilaterally. No scleral icterus. No injection or drainage. ENT: Mucous membranes dry NECK: Trachea midline. Jugular vein is flat. CARDIOVASCULAR: Distant heart sounds, Regular rate and rhythm. RESPIRATORY: Rhonchorous breath sounds bilaterally with no wheeze. GASTROINTESTINAL: Abdomen soft, non-tender, nondistended. no guarding. MUSCULOSKELETAL: There is muscular atrophy of intrinsics of bilateral hands. Extremities without clubbing, cyanosis, or edema. No obvious deformities. NEUROLOGICAL: RASS -5. sedated, paralyzed. A/P Assessment and Plan Assessment: 67yM s/p OLTx in 2001 now with severe and refractory septic shock with acinetobacter bacteremia and pneumonia, evidence of severe multi-organ system failure, acute kidney injury, acute hypoxic and hypercarbic respiratory failure. very poor prognosis. continue our aggressive goals. very critically ill at this time. NEURO: Vision change Acute metabolic encephalopathy Peripheral neuropathy Patient reported to that he could not see before intubation. ?secondary to profound hypotension and hypoperfusion. Pupils reactive, unable to assess vision currently due to intubation and clinical condition. CT brain negative. Obtaned Ammonia level -->28 EEG 03/22: severe slowing, no ictal focus. Fentanyl drip for analgosedation start versed drip continue nimbex while unstable with vent dyssynchrony Hold Neurontin 300 mg by mouth 3 times a day. Hold Xanax RESP: Acute hypoxic and hypercarbic respiratory failure History of tobacco abuse Acute healthcare associated left lower lobe pneumonia Ventilator bundle, hob @ 30 degrees, wean fio2 for spo2 > 90% peep to 8 continue nimbex given how unstable the patient became with vent dyssynchrony Duoneb every 6 hours. Albuterol every [address] chest - dense consolidation of LLL with air bronchograms. Bronchoscopy with BAL lingula 03/22 CV: Septic shock with multiorgan failure Refractory distributive shock History of atrial fibrillation status post ablation (currently sinus rhythm) History of hypertension Hyperlipidemia Initial troponin 0.03, mild increase to 0.06 is likely related to sepsis. Echo from 01/23/17 - +LVH, EF 60-65%. No regional wall motion abnormalities. Left atrial dilation. Echo 03/22- preserved LV function, mild RV dysfunction. collapsable IVC. Hold norvasc, atorvastatin, lasix, spironolactone. Continue pulse contour analysis. Received 6 L IVF. Added albumin 25 g IV q6 hours. Levophed, vasopressin, phenylephrine all still required at maximal doses to maintain end-organ perfusion and map > 65 mmHg. Serial lactic acid. serial abg. 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 Mallory as outpatient. He has not been able to follow closely with [facility] due to financial reasons. states he has prograaf [facility] and [facility] [place] [facility] She states he has been referred to [facility] for possible repeat transplant due to plasma cell hepatitis but has not had followup appointment yet. prograf level 5. restart prograf 2mg po bid and check daily levels. CT abd/pelvis non-contrast - pneumobilia, fecal impaction, no free air or fluid. repeat serial CT abd pelvis: no change. Consult GI, patient known to Dr. Mallory. UROLOGY: BPH Hold finasteride and tamulosin FEN/RENAL: RAN- severe. Oliguria- severe. Hyperkalemia Hypomagnesemia Lactic Acidosis Anion-gap metabolic acidosis- severe Mcpherson in place. Monitor intake and output. Monitor electrolytes. bicarbonate drip 150 MEQ/L @ 150 ml/hr. Patient is oliguric and may eventually require renal replacement therapy ID: Septic shock LLL HCAP- Acinetobacter UTI Pneumobilia. Leukocytosis Bandemia Change antibiotics to Tobramycin, Meropenem, Unasyn, Vancomycin, Micafungin, Levaquin. Check crypto antigen in blood, BALs ID consult: Dr. Anaya. i have had multiple conversations today regarding his progression. HEME: Chronic anemia Thrombocytopenia Monitor CBC. ENDO: Diabetes mellitus Monitor Glucose every 4 hours. Medium dose sliding scale as indicated. PROPH: No SCDs due to profound shock. Hold pharmacologic DVT prophylaxis as patient already has mild thrombocytopenia which may worsen, and may need further procedures/OR. Protonix 40 mg IV daily for stress ulcer prophylaxis. ACCESS: Left subclavian central venous line placed 03/21 #2. R radial art line 03/21 #2. Discussed with Dr. Conklin at bedside. updated on 5 separate occasions. Full code This patient remains critically ill with one or more organ systems which are or may become a threat to life. I have spent in excess of 144 minutes discontinuously in the care and management of this patient. This time is exclusive of procedures, and includes, but is not limited to, evaluation of the patient, review of the medical record, discussions with family, consultants, nursing staff, or respiratory therapy, and documentation in the medical record. This time doesn't include the multiple re-evaluations I made the patient throughout the day, including the time I spent personally at bedside transporting the unstable patient down to CT scan for additional information, the multiple re-evaluations and updates with the family, multiple conversations I had with consultants including infectious disease and surgery. Juan R Randle MD Mar 22, 2017 20:12
[2017-03-22] MEDS: TACROLIMUS 1 MG CAP PO SCH (20:20)
[2017-03-22 21:04] LABS: BLOOD GAS BASE EXCESS -8.7 mmol/L (-2-2); BLOOD GAS CARBOXYHEMOGLOBIN 1.1 % (0-4); BLOOD GAS HCO3 18 mmol/L (22-26); BLOOD GAS METHEMOGLOBIN 1.2 % (0-2); BLOOD GAS O2 HGB SATURATION 91 % (90-100); BLOOD GAS OXYGEN CONTENT 12.1 Vol % (12.0-20.0); BLOOD GAS PCO2 49 mmHg (38-42); BLOOD GAS PO2 66 mmHg (61-120); BLOOD GAS TOTAL HGB 9.4 G/DL (12.0-16.0); TEMP CORR TO 98.6
[2017-03-22 21:05] LABS: CRITICAL VALUE YES; OXYGEN DEVICE VENTILATOR
[2017-03-22 21:06] LABS: DRAW SITE ART LINE; FIO2 60 %; STAT NO; VENT SETTINGS PRVC/AC
[2017-03-23] VITALS (19 sets, daily range): BP systolic 94–142; BP diastolic 54–80; PULSE 66–73; RESP 15–24; TEMP 98–98.9; O2SAT 97–100
[2017-03-23] MEDS: INSULIN REGULAR 100 UNITS/100 ML NS ALGORITHM 4 IV SCH ×2 (00:19)
[2017-03-23] MEDS: ALBUMIN HUMAN 25% 25 GM/100 ML BAGP IV SCH ×2 (01:11→08:53)
[2017-03-23] MEDS: CHLORHEXIDINE GLUCONATE 2 % 1 PACK (2 CLOTHS) TOP SCH (01:11)
[2017-03-23] MEDS: NOREPINEPHRINE-DEXTROSE DRIP 250 ML IV SCH ×4 (02:39→23:22)
[2017-03-23 04:03] LABS: BLOOD GAS BASE EXCESS -3.9 mmol/L (-2-2); BLOOD GAS CARBOXYHEMOGLOBIN 1.4 % (0-4); BLOOD GAS HCO3 21 mmol/L (22-26); BLOOD GAS METHEMOGLOBIN 1.3 % (0-2); BLOOD GAS O2 HGB SATURATION 93 % (90-100); BLOOD GAS OXYGEN CONTENT 11.1 Vol % (12.0-20.0); BLOOD GAS PCO2 39 mmHg (38-42); BLOOD GAS PO2 77 mmHg (61-120); BLOOD GAS TOTAL HGB 8.4 G/DL (12.0-16.0); CRITICAL VALUE NO; OXYGEN DEVICE VENTILATOR; TEMP CORR TO 98.6
[2017-03-23 04:04] LABS: VENT SETTINGS PRVC/AC
[2017-03-23 04:05] LABS: DRAW SITE ART LINE; FIO2 60 %; STAT NO
[2017-03-23] MEDS: RESP: ALBUTEROL 2.5 MG/IPRATROPIUM 0.5 MG NEB (SCH) NEB ×4 (04:14→20:16)
[2017-03-23] MEDS: AMPICILLIN-SULBACTAM INJ 3 GM in SODIUM CHLORIDE 0.9% INJ 100 ML IV SCH ×2 (04:25→17:41)
[2017-03-23] MEDS: MEROPENEM INJ 1,000 MG in SODIUM CHLORIDE 0.9% INJ 100 ML IV SCH ×2 (04:26→18:53)
[2017-03-23] MEDS: HYDROCORTISONE SOD SUCCINATE 100 MG VIAL IV PUSH SCH ×3 (04:26→20:10)
[2017-03-23 05:02] LABS: BICARBONATE 22.8 MEQ/L (21.0-32.0); INDIRECT BILIRUBIN 0.8 MG/DL (0.0-0.8); POTASSIUM 4.8 MEQ/L (3.5-5.1); TOTAL BILIRUBIN ADULT 1.5 MG/DL (0.2-1.0)
[2017-03-23 05:27] LABS: CALCIUM-PROTEIN CORRECTED 7.6 MG/DL (8.5-10.1)
[2017-03-23] MEDS: SODIUM BICARBONATE 8.4% INJ 150 MEQ in WATER STERILE FOR INJ 850 ML IV SCH (06:08)
[2017-03-23 06:25] LABS: HEMATOCRIT 23.5 % (39.0-51.0); MEAN CELL VOLUME 81.9 FL (80.0-100.0); MEAN CORPUSCULAR HEMOGLOBIN 28.3 PG (27.0-34.0); MEAN CORPUSCULAR HGB CONC 34.6 % (32.0-36.0); PLATELET COUNT 72 TH/MM3 (150-450); RED BLOOD COUNT 2.87 MIL/MM3 (4.50-5.90); WHITE BLOOD COUNT 7.6 TH/MM3 (4.0-11.0)
[2017-03-23 06:34] LABS: REVIEW FLAG FINAL
--- NOTE | 2017-03-23 06:42 | MB ---
cc: JESSIKA NGUYEN MD DATE OF CONSULTATION 03/22/2017 REASON FOR CONSULTATION Rule out acute abdomen, rule out intraabdominal pathology. HISTORY OF PRESENT ILLNESS The patient is a 67-year-old male with multiple medical issues including liver transplant in 2001 due to cirrhosis. The patient noted currently to have hepatitis and recurrent liver cirrhosis. The patient presented initially to the emergency department due to altered mental status and a T-max of 103. He was denying any significant abdominal complaints other than a mild left-sided abdominal pain which has been somewhat chronic in nature. Most of the history is obtained through the notes as the patient is intubated and in critical state. All further history obtained via the . Evidently the patient has had several hospital admissions, several recurrent bouts of pneumonia and UTI. The patient also has a history of constipation. However, he is noted to have had last bowel movement yesterday. Upon further workup the patient was admitted to the ICU and increased in instability and became more critical. He required intubation due to acute respiratory failure and severe altered mental status. He was on multiple vasopressors due to septic shock and hypotension. He has received several liters of fluid and Surgery was called after obtaining CT scan of the abdomen and pelvis with the findings of increased fecal load in colon and pneumobilia. On my exam the patient is somewhat sedated on Fentanyl; however, he appears to have a relatively benign abdomen that is soft and minimally distended. CT scan reviewed by myself showing pneumobilia, without evidence of colonic/bowel wall thickening. No evidence of free air or free fluid on scan. Antibiotics have been started, aggressive resuscitation and support has also been initiated due to the patient's critical state. PAST MEDICAL HISTORY Via the notes - 1. Liver transplant. 2. Liver cirrhosis. 3. Hepatitis. 4. Ascites. 5. Chronic kidney disease. 6. Diabetes. 7. Dysphagia. 8. Gastritis. 9. Reflux. 10. Hypertension. 11. Hyperlipidemia. 12. Splenomegaly. 13. Thrombocytopenia. 14. Ulcerative colitis. PAST SURGICAL HISTORY 1. Colonoscopy on 10/30/2016 showed hemorrhoids. 2. EGD 10/30/2016 showing sessile polyp hyperplastic. 3. Liver transplant. 4. Liver biopsy. ALLERGIES MRSA. MEDICATIONS See EMR. FAMILY HISTORY History of autoimmune disorders denied. Denying hypertension or diabetes in family. SOCIAL HISTORY No current use of smoking, EtOH or IVDA. Previous history of drinking and smoking. REVIEW OF SYSTEMS Unable to obtain due to the patient's intubated state. GENERAL: Unable to obtain. HEENT: Unable to obtain. LUNGS: Unable to obtain. RESPIRATORY: Unable to obtain. ABDOMEN: Unable to obtain. EXTREMITIES: Unable to obtain. : Unable to obtain. ENDOCRINE: Unable to obtain. PHYSICAL EXAMINATION GENERAL: The patient is critical. VITAL SIGNS: At 03:00 a.m. temperature 97.4, pulse 71, respirations 20, blood pressure 89/54, saturation 90% on 100% FIO2. HEENT: ET tube in place. Dry mucous membranes. NECK: Supple. Trachea midline. LUNGS: Bilateral expansion, coarse. HEART: S1-S2, regular. ABDOMEN: Soft, nontender. Mild distension. Well-healed surgical scars. EXTREMITIES: Cool. Moderately perfused. : Within normal limits. INTEGUMENT: No obvious masses or lesions. PSYCH: Unable to obtain. LABORATORY AND DIAGNOSTIC DATA WBC 14, hemoglobin 10.5, hematocrit 32.6, platelets 135. Sodium 139, potassium 5.2, CO2 17, BUN 73, creatinine 23, glucose 204. T bili 0.7, AST 45, ALT 31, alk phos 172, lipase 100. Coagulation - INR 1.1. Blood gas - ABG 7.12, pCO2 55, pO2 46, bicarb 17, base excess -10.7. CT HEAD Reviewed by myself. No pathology. CT CHEST Dense infiltrate, opacification left lower lobe, bilateral effusions. CT ABDOMEN AND PELVIS Stool throughout colon. Hepatitis. Pneumobilia. No evidence of free air. No evidence of free fluid. ASSESSMENT The patient is a 67-year-old male in critical condition with septic shock. History of liver transplant on tacrolimus, immunocompromised. Complex medical/surgical patient. PLAN After full clinical, radiologic and laboratory workup, the patient with above-named issue. At this point agree with aggressive resuscitation of vasopressor medication, IV antibiotics, pain control, sedation and intubation. Close monitoring. After review of CT scan and based on clinical findings, unlikely that significant intraabdominal pathology is causing the patient's severe critical state. The patient does have pneumobilia but also has severe constipation and could result from this sequelae. I do not feel at this time there is any focus of this infected state going on nor do I feel any evidence of necrotic bowel or perforated bowel. I favor septic source, more likely left lower lobe due to severe consolidation and history of pneumonia versus urosepsis vital signs bacteremia. We will follow up on scans and cultures. Recommend possible recheck abdominal x-ray in the morning. If the x-ray demonstrates free air, of course we will take the patient emergently to the operating room. However, I feel this is less likely. Also would consider possible repeat CT scan for reevaluation in several hours possibly as well. We will continue to follow with you and continue serial abdominal exams and assist and aid in medical resuscitation. Thank you for the consultation. MD JACKLYN Tello/ROB /7:49 PM /6:28 AM
[2017-03-23] MEDS: CHOLECALCIFEROL (VIT D3) 1000 UNIT TAB PO SCH ×2 (08:53→20:10)
[2017-03-23] MEDS: PANTOPRAZOLE SODIUM 40 MG VIAL IV SCH ×2 (08:53→20:09)
[2017-03-23] MEDS: TACROLIMUS 1 MG CAP PO SCH ×2 (08:53→22:13)
[2017-03-23] MEDS: DOCUSATE SODIUM 50 MG/SENNA 8.6 MG TAB PO SCH ×2 (08:53→20:10)
[2017-03-23] MEDS: FOLIC ACID 1 MG TAB PO SCH ×2 (08:53→20:10)
[2017-03-23] MEDS: SODIUM CHLORIDE 0.9% FLUSH 10 ML FLUSH IV FLUSH SCH ×2 (08:53→20:10)
[2017-03-23] MEDS: CHLORHEXIDINE 0.12% (ORAL KIT) 15 ML CUP MT SCH ×2 (08:54→19:37)
--- NOTE | 2017-03-23 09:47 | HHI.PR ---
Subjective Subjective Notes Intubated/Sedated Objective Vitals/I&O Vital Signs Date Time Temp Pulse Resp B/P Pulse Ox O2 Delivery O2 Flow Rate FiO2 03/23/17 08:00 68 03/23/17 08:00 98.8 24 94/61 99 106/56 03/23/17 08:00 60 03/21/17 23:12 Ventilator 03/21/17 18:39 2 Labs Laboratory Tests Test 03/22/17 03/22/17 03/22/17 03/23/17 12:50 19:09 20:51 03:50 Blood Gas Puncture Site ART LINE ART LINE ART LINE ART LINE Blood Gas Patient Temperature 98.6 98.6 98.6 98.6 Blood Gas HCO3 14 17 18 21 Blood Gas Base Excess -13.8 -10.9 -8.7 -3.9 Blood Gas Oxygen Saturation 88 90 91 93 Arterial Blood pH 7.13 7.13 7.20 7.35 Arterial Blood Partial 42 52 49 39 Pressure CO2 Arterial Blood Partial 65 66 66 77 Pressure O2 Arterial Blood Oxygen Content 15.4 12.2 12.1 11.1 Arterial Blood 1.0 1.1 1.1 1.4 Carboxyhemoglobin Arterial Blood Methemoglobin 1.2 1.2 1.2 1.3 Blood Gas Hemoglobin 12.4 9.6 9.4 8.4 Oxygen Delivery Device VENTILATOR VENTILATOR VENTILATOR VENTILATOR Blood Gas Ventilator Setting PRVC25/500/1.1/+5 PRVC/AC PRVC/AC PRVC/AC Blood Gas Inspired Oxygen 60 60 60 60 Test 03/23/17 03/23/17 04:00 05:35 Sodium Level 135 Potassium Level 4.8 Chloride Level 101 Carbon Dioxide Level 22.8 Anion Gap 11 Blood Urea Nitrogen 63 Creatinine 2.43 Estimat Glomerular Filtration 27 Rate Random Glucose 106 Calcium Level 7.1 Protein Corrected Calcium 7.6 Total Bilirubin 1.5 Direct Bilirubin 0.7 Indirect Bilirubin 0.8 Aspartate Amino Transf 30 (AST/SGOT) Alanine Aminotransferase 21 (ALT/SGPT) Alkaline Phosphatase 63 Total Protein 6.1 Albumin 2.5 White Blood Count 7.6 Red Blood Count 2.87 Hemoglobin 8.1 Hematocrit 23.5 Mean Corpuscular Volume 81.9 Mean Corpuscular Hemoglobin 28.3 Mean Corpuscular Hemoglobin 34.6 Concent Red Cell Distribution Width 16.0 Platelet Count 72 Mean Platelet Volume 8.7 Date/Time Procedure Status Source Growth 03/23/17 01:10 Gram Stain - Final Resulted Sputum Endotracheal 03/23/17 01:10 Sputum Culture Resulted Sputum Endotracheal Pending 03/22/17 06:05 Fungal Smear - Final Resulted Bronchial Washings Other NO FUNGAL ELEMENTS SEEN. 03/22/17 06:05 Fungal Culture Resulted Bronchial Washings Other Pending 03/22/17 06:05 Acid Fast Stain - Final Resulted Bronchial Washings Other NO ACID FAST BACILLI SEEN 03/22/17 06:05 Mycobacterial Culture Resulted Bronchial Washings Other Pending 03/21/17 18:30 Urine Culture - Preliminary Resulted Urine Catheterized Urine NO GROWTH IN 24 HOURS. 03/21/17 18:30 Legionella Antigen - Final Complete Urine Catheterized Urine PRESUMPTIVE NEGATIVE FOR LEGIONELLA P... 03/21/17 18:30 Streptococcus pneumoniae Antigen (M - Final Complete Urine Catheterized Urine PRESUMPTIVE NEGATIVE FOR STREPTOCOCCU... 03/21/17 18:10 Aerobic Blood Culture - Preliminary Resulted Blood Peripheral NO GROWTH IN 1 DAY 03/21/17 18:10 Anaerobic Blood Culture - Preliminary Resulted Blood Peripheral NO GROWTH IN 1 DAY Cardiovascular: Regular Lungs: Clear Abdomen: Non-distended, Non-tender Extremities: Other (not well perfused distal extremities ) A/P Assessment and Plan 67 year old male in septic shock; question of mesenteric ischemia -Low suspicion of any acute etiology in abdomen -Continue to follow abdominal exams---off Nimbex drip -CT abd/pelvis reviewed -ID following -[facility] following -GS will follow peripherally; please call with questions Attending Statement patient seen at bedside abdomen remains benign patient remains in critical condition Attestation The exam, history, and the medical decision-making described in the above note were completed with the assistance of the mid-level provider. I reviewed and agree with the findings presented. I attest that I had a [id number] encounter with the patient on the same day, and personally performed and documented my assessment and findings in the medical record. Mya Rapp Mar 23, 2017 09:47 Luis Conklin MD Mar 29, 2017 20:23
--- NOTE | 2017-03-23 09:57 | EKG ---
Date Performed: 03/22/2017 Time Performed: 21:30:47 PTAGE: 67 years EKG: Sinus rhythm LOW QRS VOLTAGE IN PRECORDIAL LEADS SEPTAL MYOCARDIAL INFARCTION , OF INDETERMINATE AGE INFERIOR HOPE CARDIAL INFARCTION , OF INDETERMINATE AGE Compared to prior tracing no significant change ABNORMAL EC G PREVIOUS TRACING : 03/22/2017 17.00 DOCTOR: Terrell Orozco Interpretating Date/Time 03/23/2017 09:51:32
[2017-03-23] MEDS ORDERED: GLUCAGON 1 MG/ML VIAL OTHER PRN (10:00)
--- NOTE | 2017-03-23 10:07 | EKG ---
Date Performed: 03/22/2017 Time Performed: 17:00:25 PTAGE: 67 years EKG: Sinus rhythm WITH FIRST DEGREE AV BLOCK LOW QRS VOLTAGE IN PRECORDIAL LEADS INFERIOR MYOCARDIAL INFARCTION , OF I NDETERMINATE AGE Anterior T-wave abnormality cannot exclude ischemia, but no change from the prior tr acing. ABNORMAL ECG PREVIOUS TRACING : 03/22/2017 09.46 DOCTOR: Terrell Orozco Interpretating Date/Time 03/23/2017 10:06:04
[2017-03-23] MEDS: MIDAZOLAM 100 MG/ML INJ 100 ML IV SCH (10:10)
[2017-03-23] MEDS: fentaNYL DRIP 250 ML IV SCH (10:10)
--- NOTE | 2017-03-23 11:05 | HHI.GIFU ---
Subjective Remarks Resting in bed. Sedated on ventilator. No distress. Awaiting call back from [facility] at [facility]. Objective Vitals I&O Vital Signs Date Time Temp Pulse Resp B/P Pulse Ox O2 Delivery O2 Flow Rate FiO2 03/23/17 10:00 69 03/23/17 08:00 68 03/23/17 08:00 98.8 66 24 94/61 99 106/56 03/23/17 08:00 60 03/23/17 08:00 68 94/61 106/56 03/23/17 07:47 97 50 03/23/17 06:00 69 03/23/17 04:09 99 60 03/23/17 04:00 67 100/65 108/54 03/23/17 04:00 67 03/23/17 04:00 60 03/23/17 04:00 98.4 67 24 100/65 99 108/54 03/23/17 02:00 68 03/23/17 01:08 98 60 03/23/17 00:00 60 03/23/17 00:00 69 131/80 136/69 03/23/17 00:00 98.0 69 24 136/69 99 03/23/17 00:00 69 03/22/17 22:05 99 60 03/22/17 22:00 69 03/22/17 20:00 75 03/22/17 20:00 97.5 75 25 128/65 96 03/22/17 20:00 60 03/22/17 20:00 75 128/65 03/22/17 19:10 97 60 03/22/17 18:00 74 03/22/17 16:02 100 100 03/22/17 16:02 97 60 03/22/17 16:00 97.9 72 25 116/75 100 03/22/17 16:00 60 03/22/17 16:00 72 03/22/17 14:00 69 03/22/17 12:24 99 60 03/22/17 12:00 60 03/22/17 12:00 97.8 62 20 101/60 100 03/22/17 12:00 62 I/O 03/22/17 03/22/17 03/22/17 03/23/17 03/23/17 03/23/17 07:00 15:00 23:00 07:00 15:00 23:00 Intake Total 5213 ml 5309 ml 2777 ml 2356 ml Output Total 625 ml 200 ml 95 ml 560 ml Balance 4588 ml 5109 ml 2682 ml 1796 ml Intake IV Total 5213 ml 4869 ml 2617 ml 2256 ml Albumin 200 ml 100 ml 100 ml Other 240 ml 60 ml Output Urine Total 625 ml 200 ml 95 ml 260 ml Gastric Drainage Total 300 ml # Bowel Movements 1 0 1 Laboratory Laboratory Tests Test 03/22/17 03/22/17 03/22/17 03/23/17 12:50 19:09 20:51 03:50 Blood Gas Puncture Site ART LINE ART LINE ART LINE ART LINE Blood Gas Patient Temperature 98.6 98.6 98.6 98.6 Blood Gas HCO3 14 17 18 21 Blood Gas Base Excess -13.8 -10.9 -8.7 -3.9 Blood Gas Oxygen Saturation 88 90 91 93 Arterial Blood pH 7.13 7.13 7.20 7.35 Arterial Blood Partial 42 52 49 39 Pressure CO2 Arterial Blood Partial 65 66 66 77 Pressure O2 Arterial Blood Oxygen Content 15.4 12.2 12.1 11.1 Arterial Blood 1.0 1.1 1.1 1.4 Carboxyhemoglobin Arterial Blood Methemoglobin 1.2 1.2 1.2 1.3 Blood Gas Hemoglobin 12.4 9.6 9.4 8.4 Oxygen Delivery Device VENTILATOR VENTILATOR VENTILATOR VENTILATOR Blood Gas Ventilator Setting PRVC25/500/1.1/+5 PRVC/AC PRVC/AC PRVC/AC Blood Gas Inspired Oxygen 60 60 60 60 Test 03/23/17 03/23/17 04:00 05:35 Sodium Level 135 Potassium Level 4.8 Chloride Level 101 Carbon Dioxide Level 22.8 Anion Gap 11 Blood Urea Nitrogen 63 Creatinine 2.43 Estimat Glomerular Filtration 27 Rate Random Glucose 106 Calcium Level 7.1 Protein Corrected Calcium 7.6 Total Bilirubin 1.5 Direct Bilirubin 0.7 Indirect Bilirubin 0.8 Aspartate Amino Transf 30 (AST/SGOT) Alanine Aminotransferase 21 (ALT/SGPT) Alkaline Phosphatase 63 Total Protein 6.1 Albumin 2.5 White Blood Count 7.6 Red Blood Count 2.87 Hemoglobin 8.1 Hematocrit 23.5 Mean Corpuscular Volume 81.9 Mean Corpuscular Hemoglobin 28.3 Mean Corpuscular Hemoglobin 34.6 Concent Red Cell Distribution Width 16.0 Platelet Count 72 Mean Platelet Volume 8.7 Date/Time Procedure Status Source Growth 03/23/17 01:10 Gram Stain - Final Resulted Sputum Endotracheal 03/23/17 01:10 Sputum Culture Resulted Sputum Endotracheal Pending 03/22/17 06:05 Fungal Smear - Final Resulted Bronchial Washings Other NO FUNGAL ELEMENTS SEEN. 03/22/17 06:05 Fungal Culture Resulted Bronchial Washings Other Pending 03/22/17 06:05 Acid Fast Stain - Final Resulted Bronchial Washings Other NO ACID FAST BACILLI SEEN 03/22/17 06:05 Mycobacterial Culture Resulted Bronchial Washings Other Pending 03/21/17 18:30 Urine Culture - Final Complete Urine Catheterized Urine NO GROWTH IN 48 HOURS. 03/21/17 18:30 Legionella Antigen - Final Complete Urine Catheterized Urine PRESUMPTIVE NEGATIVE FOR LEGIONELLA P... 03/21/17 18:30 Streptococcus pneumoniae Antigen (M - Final Complete Urine Catheterized Urine PRESUMPTIVE NEGATIVE FOR STREPTOCOCCU... 03/21/17 18:10 Aerobic Blood Culture - Preliminary Resulted Blood Peripheral NO GROWTH IN 1 DAY 03/21/17 18:10 Anaerobic Blood Culture - Preliminary Resulted Blood Peripheral NO GROWTH IN 1 DAY Imaging Last Impressions Abdomen Ultrasound 03/22/172122 Signed Impressions: Service Date/Time: Wednesday, March 22, 2017 08:14 - CONCLUSION: 1. Mild diffusely heterogeneous transplant liver echotexture with small amount of volume loss. No definitive evidence for portal venous gas or significant pneumobilia by ultrasound exam. However, examination was not specifically tailored for extended interrogation of the hepatic vasculature. 2. No sonographic evidence for intra-or extrahepatic ductal dilatation. 3. Trace ascites and small bilateral pleural effusions. Everton Cruz MD Chest X-Ray 03/22/17 0000 Signed Impressions: Service Date/Time: Wednesday, March 22, 2017 02:37 - CONCLUSION: Infiltrate in the left lung inferiorly. Left subclavian Central line in good position. Tubes and catheter is in good position. Valerio Jerome MD Chest CT 03/22/17 0000 Signed Impressions: Service Date/Time: Wednesday, March 22, 2017 15:37 - CONCLUSION: There is ascites and bilateral pleural effusion and worsening left lung consolidation. Indu Cunningham MD Abdomen/Pelvis CT 03/22/17 0000 Signed Impressions: Service Date/Time: Wednesday, March 22, 2017 15:40 - CONCLUSION: Increase in ascites and mesenteric congestion since the prior exam. Indu Cunningham MD Abdomen X-Ray 03/22/17 0000 Signed Impressions: Service Date/Time: Wednesday, March 22, 2017 07:00 - CONCLUSION: No findings characteristic of perforation. Nasogastric tube coiled within the fundus of the stomach. Emilio Snow MD Head CT 03/21/17 0000 Signed Impressions: Service Date/Time: Tuesday, March 21, 2017 23:27 - CONCLUSION: Normal examination. Valerio Jerome MD Physical Exam HEENT: Normocephalic; atraumatic; no jaundice. CHEST: CTA, diminished, OETT to vent. CARDIAC: RRR ABDOMEN: Soft, nondistended, nontender; hepatosplenomegaly; bowel sounds are present in all four quadrants. EXTREMITIES: No clubbing, cyanosis, or edema. SKIN: Generalized pallor SURVEILLANCE OBSERVER: Sedated on vent. 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 He has not been seen at the [facility] and 5-10 years secondary to financial issues. Unfortunately, he cannot make an appointment to follow up at [facility] until he makes a payment of $8,000 for an outstanding balance. The tells me charles there is no way she can make this payment and that she will have to "deal with that later." We did refer patient to [facility], but patient was declined secondary to having his transplant done at [facility] and they said that he would need to follow up at [facility]. Liver biopsy (01/08/17) that was sent to 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 Similar histologic findings can also be seen in plasma cell rich rejection. Correlation with recent BILLY, ASMA, and serum IgG level is recommended. Typical features of acute cellular rejection are not seen. There is no evidence of chronic biliary tract disease or active steatohepatitis. Labs from January 28, 2017 revealed IgG total 3887, IgG1 2359, IgG3 57, IgG4 > 300.00. BILLY negative, ASMA negative. T. Bili 1.5, AST 30, ALT 21, ALk Phosph 63. Prograf level 5.2. On Solucortef, Prograf. MELD 16. Called placed to Tiana Lo at [facility] to update on patient's condition and to see if he would able to be seen at their facility ([facility] has declined patient). - Constipation, Fecal impaction. Abdomen/Pelvis CT (03/21/17)-----> Moderate stool throughout the colon. Small moderate of the bell hepatis I believe is biliary air. Other solid organs are unremarkable. Dense infiltrate left lower lobe within the lung. (+) BM. Lactulose with BID dosing. - Anemia with drop in Hgb. 10.5/32.9-----> 8.1/23.5. No obvious active bleeding. Will increase protonix to BID dosing. - Coagulopathy. PT 14.7, INR 1.3. Recheck PT/INR today. - Sepsis with multisystem failure. Pt with bandemia, UTI/PNA. Bronchial washings pending, urine negative for legionella and streptococcus, urine cx (-) , bcx no growth Acinetobacter, Levaquin, Ampicillicin, Meropenem, Zosyn. On vasopressors. CT as above. - Resp. Failure, HCAP. Abx, Nebs. Vent per CCM. - RAN with electrolyte abnormalities. Worsening, Creat 2.43. - AMS. Ammonia 28. EEG with diffusely low recording, could be medication effect as the patient was on fentanyl. No hemisphere asymmetries are noted. No epileptiform or seizure activity seen. - Hx HTN, hyperlipidemia, BPH, per attending. PLAN: - Keep NPO for now - Rpt. HH at 12noon and notify GI if drop in Hgb - PT/INR today with 12noon HH - Hemoccult stool - Change Lactulose 30mL po BID - Add Xifaxan 550mg po BID - Cont. steroids - Cont. abx, per ID - Cont. PPI - CBC, CMP, PT/INR in am - Supportive care - CCM following - GS following - ID following - Further recommendations to follow based on results of above - Possible EGD, timing to be determined based on repeat labs and clinical status. - Will hold on starting TF until repeat HH is resulted to see if there is further drop in Hgb/whether EGD is needed - Of note, patient has been declined by [facility] secondary to having original transplant at [facility] - [facility] will not see patient until they have resolved outstanding balance ($8,000 ), states that she is unable to do this- Call placed to Tiana Lo at [facility] to update on condition and to see if they would consider seeing patient given his condition. - Pt seen and examined by Dr. Tate and myself and this note is written on his behalf Kenisha Lopez Mar 23, 2017 11:05
[2017-03-23] MEDS: HIGH DOSE INSULIN NOVOLIN REGULAR SUPPLEMENTAL SCALE SQ SCH ×4 (12:48→23:22)
[2017-03-23 13:11] LABS: CRYPTOCOCCUS ANTIGEN Negative (Negative)
--- NOTE | 2017-03-23 13:40 | HHI.CCPN ---
Subjective Remarks/Hospital Course Hospital Course: 67-year-old male with past medical history of primary sclerosing cholangitis with orthotopic liver transplant at [facility] in 2001, hypertension, atrial fibrillation status post ablation, hyperlipidemia, diabetes mellitus who presents to [facility] emergency department with altered mental status, fever, urinary incontinence. He was brought in by his . She states that this morning he was doing well and participated with home health physical therapy. When his returned home this evening she found him lethargic and minimally responsive. He had a cup full of mucus and when she inquired about it he stated that he had vomited. He refused ambulance transport. He had a temperature of 103 upon arrival to the emergency department. His states he told ED staff that he had experienced dysuria starting today. He has h/o BPH and UTI in the past. He has chronic low back pain. He denies headache or neck stiffness. His states he returned to his baseline mental status while in the ED and was conversant with her. He had no focal weakness and no witnessed seizure. His ED workup demonstrated U/a with moderate bacteria, 13 WBC, 2 RBC. White blood cell count was 14 with 9% bands, hemoglobin 10.5, platelets 135, AST 45, ALT 31, alkaline phosphatase 172, PT 12.3, INR 1.1 . Creatinine was 2.32 (baseline about 1.6-2), BUN 73, sodium 132 , potassium 5.2, bicarbonate 17 His initial lactic acid was 1.6. He was given Zosyn and 3 L NS bolus and admitted to the hospitalist service. He was complaining of chronic back pain and was anxious/agitated so was given Ativan 0.5 mg IV (chronically on Xanax). ED physician Dr. Orozco was called in because he became unresponsive and he was hypopneic with inadequate respirations. Sats were in the 60s. He complained to his that he could not see. He was hypotensive in 70s and post-intubation BP dropped to 60s/40s and [facility] was called. CVL was placed and he was started on levophed and vasopressin. He is awake on vent and answering questions yes/no. Subjective: 03/22: patient in refractory distributive shock. I evaluated the patient multiple times throughout the day beginning around 0600 and at frequent intervals. Patient remains acidotic on maximal vasopressor therapy. I had discussions with Dr. Anaya with ID, cultures are growing out Acinetobacter. abx changed to tobra, vanc, meropenem, levaquin, unasyn. continued ivf resuscitation throughout the day guided by frequent IVC and cardiac echo. formal echo with grossly preserved LV function and mild RV dysfunction. but IVC continued to be collapsable. acute renal failure worsening and acidosis severe. started on bicarb drip. repeat CT abd/pelvis performed. I personally transported patient down to CT scanner given how severely unstable the patient was. Discussed with general surgery and interval CT scan is necessary to eval for intra-abdominal source of sepsis. interval CT without change. most likely Acinetobacter pneumonia with overwhelming septic shock. discussed with at length multiple times today regarding his life-threatening infection and his high risk of mortality. 03/23: vasopressors weaning down. patient waking up, following commands. still persistently acidotic, in multiorgan failure. renal dysfunction persists and oliguric. acinetobacter sensitivities not resulted. Objective Vital Signs Date Time Temp Pulse Resp B/P Pulse Ox O2 Delivery O2 Flow Rate FiO2 03/23/17 11:00 100 50 03/23/17 10:00 69 03/23/17 08:00 98.8 24 94/61 106/56 03/21/17 23:12 Ventilator 03/21/17 18:39 2 Intake and Output 03/22/17 03/22/17 03/23/17 08:00 16:00 00:00 Intake Total 5213 ml 5309 ml 2777 ml Output Total 200 ml 200 ml 170 ml Balance 5013 ml 5109 ml 2607 ml Result Diagram: 03/23/17 0535 03/23/17 0400 Other Results Microbiology Date/Time Procedure Status Source Growth 03/21/17 18:30 Urine Culture - Final Complete Urine Catheterized Urine NO GROWTH IN 48 HOURS. 03/21/17 18:30 Legionella Antigen - Final Complete Urine Catheterized Urine PRESUMPTIVE NEGATIVE FOR LEGIONELLA P... 03/21/17 18:30 Streptococcus pneumoniae Antigen (M - Final Complete Urine Catheterized Urine PRESUMPTIVE NEGATIVE FOR STREPTOCOCCU... Laboratory Tests Test 03/22/17 03/22/17 03/23/17 19:09 20:51 03:50 Blood Gas Puncture Site ART LINE ART LINE ART LINE Blood Gas Patient Temperature 98.6 98.6 98.6 Blood Gas HCO3 17 mmol/L 18 mmol/L 21 mmol/L (22-26) (22-26) (22-26) Blood Gas Base Excess -10.9 mmol/L -8.7 mmol/L -3.9 mmol/L (-2-2) (-2-2) (-2-2) Blood Gas Oxygen Saturation 90 % (90-100) 91 % (90-100) 93 % (90-100) Arterial Blood pH 7.13 7.20 7.35 (7.380-7.420) (7.380-7.420) (7.380-7.420) Arterial Blood Partial 52 mmHg (38-42) 49 mmHg (38-42) 39 mmHg (38-42) Pressure CO2 Arterial Blood Partial 66 mmHg 66 mmHg 77 mmHg Pressure O2 (61-120) (61-120) (61-120) Arterial Blood Oxygen Content 12.2 Vol % 12.1 Vol % 11.1 Vol % (12.0-20.0) (12.0-20.0) (12.0-20.0) Arterial Blood 1.1 % (0-4) 1.1 % (0-4) 1.4 % (0-4) Carboxyhemoglobin Arterial Blood Methemoglobin 1.2 % (0-2) 1.2 % (0-2) 1.3 % (0-2) Blood Gas Hemoglobin 9.6 G/DL 9.4 G/DL 8.4 G/DL (12.0-16.0) (12.0-16.0) (12.0-16.0) Oxygen Delivery Device VENTILATOR VENTILATOR VENTILATOR Blood Gas Ventilator Setting PRVC/AC PRVC/AC PRVC/AC Blood Gas Inspired Oxygen 60 % 60 % 60 % Objective Remarks GENERAL: Chronically ill-appearing 67-year-old male who is orotracheally intubated. severe distress. SKIN: Warm and dry. HEAD: Atraumatic. Normocephalic. EYES: Pupils equal and round, 2 mm and reactive bilaterally. No scleral icterus. No injection or drainage. ENT: Mucous membranes dry NECK: Trachea midline. Jugular vein is flat. CARDIOVASCULAR: Distant heart sounds, Regular rate and rhythm. RESPIRATORY: Rhonchorous breath sounds bilaterally with no wheeze. GASTROINTESTINAL: Abdomen soft, non-tender, nondistended. no guarding. MUSCULOSKELETAL: There is muscular atrophy of intrinsics of bilateral hands. Extremities without clubbing, cyanosis, or edema. No obvious deformities. NEUROLOGICAL: RASS -5. sedated, paralyzed. A/P Assessment and Plan Assessment: 67yM s/p OLTx in 2001 now with severe and refractory septic shock with Acinetobacter bacteremia and pneumonia, evidence of severe multi-organ system failure, acute kidney injury, acute hypoxic and hypercarbic respiratory failure. very poor prognosis. continue our aggressive goals. very critically ill at this time. NEURO: Vision change Acute metabolic encephalopathy Peripheral neuropathy Patient reported to that he could not see before intubation. ?secondary to profound hypotension and hypoperfusion. Pupils reactive, unable to assess vision currently due to intubation and clinical condition. CT brain negative. Obtaned Ammonia level -->28 EEG 03/22: severe slowing, no ictal focus. Fentanyl drip for analgosedation stop versed. start propofol. goal RASS -2. d/c nimbex. Hold Neurontin 300 mg by mouth 3 times a day. Hold Xanax RESP: Acute hypoxic and hypercarbic respiratory failure History of tobacco abuse Acute healthcare associated left lower lobe pneumonia Ventilator bundle, hob @ 30 degrees, wean fio2 for spo2 > 90% peep to 8 d/c nimbex. Duoneb every 6 hours. Albuterol every [address] chest - dense consolidation of LLL with air bronchograms. Bronchoscopy with BAL lingula 03/22 hold SBT given hemodynamic instability. CV: Septic shock with multiorgan failure History of atrial fibrillation status post ablation (currently sinus rhythm) History of hypertension Hyperlipidemia Initial troponin 0.03, mild increase to 0.06 is likely related to sepsis. Echo from 01/23/17 - +LVH, EF 60-65%. No regional wall motion abnormalities. Left atrial dilation. Echo 03/22- preserved LV function, mild RV dysfunction. collapsable IVC. Hold norvasc, atorvastatin, lasix, spironolactone. Continue pulse contour analysis. d/c albumin. d/c mivf. volume overloaded despite continued septic shock. Levophed as needed for map > 65 mmHg. serial abg. 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 Patient has been followed by Dr. Mallory as outpatient. He has not been able to follow closely with [facility] due to financial reasons. states he has [facility] [place] [facility]. She states he has been referred to [facility] for possible repeat transplant due to plasma cell hepatitis but has not had followup appointment yet. prograf level 5. f/u prograf level today. may need to hold PM dose given renal dysfunction. will plan to decrease dose to 1mg BID. CT abd/pelvis non-contrast - pneumobilia, fecal impaction, no free air or fluid. repeat serial CT abd pelvis: no change. Consult GI, patient known to Dr. Mallory. UROLOGY: BPH Hold finasteride and tamulosin FEN/RENAL: RAN- severe. Oliguria- severe. Hyperkalemia Hypomagnesemia Lactic Acidosis- resolved. Anion-gap metabolic acidosis- improving. Intravascular volume overload Mcpherson in place. Monitor intake and output. Monitor electrolytes. d/c bicarb drip Patient is oliguric and may eventually require renal replacement therapy will not force diuresis yet given persistent shock and vasopressor requirement. may be forced to initiate diuresis to prevent complications of volume overload. ID: Septic shock LLL HCAP- Acinetobacter UTI Pneumobilia. Leukocytosis Bandemia Continue antibiotics to Tobramycin, Meropenem, Unasyn, Vancomycin, Micafungin, Levaquin. Check crypto antigen in blood, BALs ID consult: Dr. Anaya. f/u sensitivities. HEME: Chronic anemia Thrombocytopenia Monitor CBC. ENDO: Diabetes mellitus Monitor Glucose every 4 hours. Medium dose sliding scale as indicated. PROPH: No SCDs due to profound shock. Hold pharmacologic DVT prophylaxis as patient already has mild thrombocytopenia which may worsen, and may need further procedures/OR. Protonix 40 mg IV daily for stress ulcer prophylaxis. ACCESS: Left subclavian central venous line placed 03/21 #3. R radial art line 03/21 #3. updated at bedside. Full code This patient remains critically ill with one or more organ systems which are or may become a threat to life. I have spent in excess of 48 minutes discontinuously in the care and management of this patient. This time is exclusive of procedures, and includes, but is not limited to, evaluation of the patient, review of the medical record, discussions with family, consultants, nursing staff, or respiratory therapy, and documentation in the medical record. Juan R Randle MD Mar 23, 2017 13:40 Juan R Randle MD Mar 23, 2017 13:40
[2017-03-23 13:45] LABS: HEMATOCRIT 22.7 % (39.0-51.0)
[2017-03-23 13:48] LABS: REVIEW FLAG FINAL
[2017-03-23 13:52] LABS: BLOOD GAS BASE EXCESS -1.5 mmol/L (-2-2); BLOOD GAS CARBOXYHEMOGLOBIN 1.6 % (0-4); BLOOD GAS HCO3 21 mmol/L (22-26); BLOOD GAS METHEMOGLOBIN 1.4 % (0-2); BLOOD GAS O2 HGB SATURATION 96 % (90-100); BLOOD GAS OXYGEN CONTENT 10.3 Vol % (12.0-20.0); BLOOD GAS PCO2 28 mmHg (38-42); BLOOD GAS PO2 112 mmHg (61-120); BLOOD GAS TOTAL HGB 7.5 G/DL (12.0-16.0); CRITICAL VALUE NO; OXYGEN DEVICE VENTILATOR; TEMP CORR TO 98.6
[2017-03-23 13:54] LABS: DRAW SITE ART LINE; FIO2 50 %; STAT NO; ULNAR PULSE PRESENT
[2017-03-23 13:55] LABS: INTERNATIONAL NORMALIZED RATIO 1.6 RATIO; PROTHROMBIN TIME - PATIENT 18.1 SEC (9.8-11.6)
[2017-03-23] MEDS: PROPOFOL 1000 MG/100 ML INJ 100 ML IV SCH ×2 (14:10→19:37)
[2017-03-23] MEDS ORDERED: VANCOMYCIN INJ 1,750 MG in SODIUM CHLORID 0.9% 500 ML INJ 500 ML IV ONE (16:00)
--- NOTE | 2017-03-23 18:42 | HHI.IDPN ---
Subjective Subjective Remarks he is quite better today Off most pressors except Levaphed at 8 mcgs No fever Antibiotics Amp/S merpenem leva tobra vanco micafungin Allergies: Coded Allergies: *MDRO Multi-Drug Resistant Organism (Verified Adverse Reaction, Unknown, ) MRSA (heel wound) - 07/23/16 MRSA PCR Screen POSITIVE-03/22/17 Objective . Vital Signs Date Time Temp Pulse Resp B/P Pulse Ox O2 Delivery O2 Flow Rate FiO2 03/23/17 16:00 40 03/23/17 16:00 98.4 73 15 119/68 100 142/68 03/23/17 16:00 73 119/68 142/68 03/23/17 15:31 100 40 03/23/17 12:00 68 116/70 136/65 03/23/17 12:00 98.9 68 24 116/70 100 136/65 03/23/17 12:00 60 03/23/17 11:00 100 50 03/23/17 10:00 69 03/23/17 08:00 68 03/23/17 08:00 98.8 66 24 94/61 99 106/56 03/23/17 08:00 60 03/23/17 08:00 68 94/61 106/56 03/23/17 07:47 97 50 03/23/17 06:00 69 03/23/17 04:09 99 60 03/23/17 04:00 67 100/65 108/54 03/23/17 04:00 67 03/23/17 04:00 60 03/23/17 04:00 98.4 67 24 100/65 99 108/54 03/23/17 02:00 68 03/23/17 01:08 98 60 03/23/17 00:00 60 03/23/17 00:00 69 131/80 136/69 03/23/17 00:00 98.0 69 24 136/69 99 03/23/17 00:00 69 03/22/17 22:05 99 60 03/22/17 22:00 69 03/22/17 20:00 75 03/22/17 20:00 97.5 75 25 128/65 96 03/22/17 20:00 60 03/22/17 20:00 75 128/65 03/22/17 19:10 97 60 03/22/17 03/22/17 03/23/17 15:00 23:00 07:00 Intake Total 5309 ml 2777 ml 2356 ml Output Total 200 ml 95 ml 560 ml Balance 5109 ml 2682 ml 1796 ml Intake IV Total 4869 ml 2617 ml 2256 ml Albumin 200 ml 100 ml 100 ml Other 240 ml 60 ml Output Urine Total 200 ml 95 ml 260 ml Gastric Drainage Total 300 ml # Bowel Movements 0 1 . Laboratory Tests Test 03/22/17 03/23/17 03/23/17 05:40 05:35 12:52 White Blood Count 10.2 TH/MM3 7.6 TH/MM3 Red Blood Count 3.80 MIL/MM3 2.87 MIL/MM3 Hemoglobin 10.5 GM/DL 8.1 GM/DL 7.9 GM/DL Hematocrit 32.9 % 23.5 % 22.7 % Mean Corpuscular Volume 86.6 FL 81.9 FL Mean Corpuscular Hemoglobin 27.6 PG 28.3 PG Mean Corpuscular Hemoglobin 31.9 % 34.6 % Concent Red Cell Distribution Width 15.3 % 16.0 % Platelet Count 182 TH/MM3 72 TH/MM3 Mean Platelet Volume 8.7 FL 8.7 FL Neutrophils (%) (Auto) 81.7 % Lymphocytes (%) (Auto) 12.2 % Monocytes (%) (Auto) 5.9 % Eosinophils (%) (Auto) 0.0 % Basophils (%) (Auto) 0.2 % Neutrophils # (Auto) 8.3 TH/MM3 Lymphocytes # (Auto) 1.2 TH/MM3 Monocytes # (Auto) 0.6 TH/MM3 Eosinophils # (Auto) 0.0 TH/MM3 Basophils # (Auto) 0.0 TH/MM3 CBC Comment DIFF FINAL Differential Comment Laboratory Tests Test 03/21/17 03/21/17 03/22/17 03/22/17 21:36 22:25 01:30 05:40 Lactic Acid Level 2.6 mmol/L 2.6 mmol/L 2.6 mmol/L Random Cortisol 33.0 MCG/DL Ammonia 28 MCMOL/L Total Creatine Kinase 54 U/L 64 U/L Troponin I 0.06 NG/ML 0.06 NG/ML Sodium Level 139 MEQ/L Potassium Level 5.5 MEQ/L Chloride Level 112 MEQ/L Carbon Dioxide Level 18.7 MEQ/L Anion Gap 8 MEQ/L Blood Urea Nitrogen 62 MG/DL Creatinine 2.31 MG/DL Estimat Glomerular Filtration 28 ML/MIN Rate Random Glucose 307 MG/DL Calcium Level 7.1 MG/DL Protein Corrected Calcium 7.5 MG/DL Phosphorus Level 4.8 MG/DL Magnesium Level 1.3 MG/DL Total Bilirubin 0.7 MG/DL Aspartate Amino Transf 42 U/L (AST/SGOT) Alanine Aminotransferase 28 U/L (ALT/SGPT) Alkaline Phosphatase 114 U/L B-Type Natriuretic Peptide 2188 PG/ML Total Protein 6.3 GM/DL Albumin 1.5 GM/DL Test 03/23/17 04:00 Sodium Level 135 MEQ/L Potassium Level 4.8 MEQ/L Chloride Level 101 MEQ/L Carbon Dioxide Level 22.8 MEQ/L Anion Gap 11 MEQ/L Blood Urea Nitrogen 63 MG/DL Creatinine 2.43 MG/DL Estimat Glomerular Filtration 27 ML/MIN Rate Random Glucose 106 MG/DL Calcium Level 7.1 MG/DL Protein Corrected Calcium 7.6 MG/DL Total Bilirubin 1.5 MG/DL Direct Bilirubin 0.7 MG/DL Indirect Bilirubin 0.8 MG/DL Aspartate Amino Transf 30 U/L (AST/SGOT) Alanine Aminotransferase 21 U/L (ALT/SGPT) Alkaline Phosphatase 63 U/L Total Protein 6.1 GM/DL Albumin 2.5 GM/DL Microbiology Date/Time Procedure Status Source Growth 03/21/17 18:08 Aerobic Blood Culture - Preliminary Resulted Blood Peripheral Acinetobacter Species 03/21/17 18:08 Anaerobic Blood Culture - Preliminary Resulted Blood Peripheral NO GROWTH IN 2 DAYS 03/21/17 18:10 Aerobic Blood Culture - Preliminary Resulted Blood Peripheral NO GROWTH IN 2 DAYS 03/21/17 18:10 Anaerobic Blood Culture - Preliminary Resulted Blood Peripheral NO GROWTH IN 2 DAYS 03/21/17 18:30 Urine Culture - Final Complete Urine Catheterized Urine NO GROWTH IN 48 HOURS. 03/21/17 18:30 Legionella Antigen - Final Complete Urine Catheterized Urine PRESUMPTIVE NEGATIVE FOR LEGIONELLA P... 03/21/17 18:30 Streptococcus pneumoniae Antigen (M - Final Complete Urine Catheterized Urine PRESUMPTIVE NEGATIVE FOR STREPTOCOCCU... 03/22/17 06:05 Gram Stain - Final Resulted Bronchial Washings Other 03/22/17 06:05 Bronchial Culture - Preliminary Resulted Bronchial Washings Other NO GROWTH IN 24 HOURS. 03/22/17 06:05 Acid Fast Stain - Final Resulted Bronchial Washings Other NO ACID FAST BACILLI SEEN 03/22/17 06:05 Mycobacterial Culture Resulted Bronchial Washings Other Pending 03/22/17 06:05 Fungal Smear - Final Resulted Bronchial Washings Other NO FUNGAL ELEMENTS SEEN. 03/22/17 06:05 Fungal Culture Resulted Bronchial Washings Other Pending 03/23/17 01:10 Gram Stain - Final Resulted Sputum Endotracheal 03/23/17 01:10 Sputum Culture Resulted Sputum Endotracheal Pending Imaging Last Impressions Abdomen Ultrasound 03/22/172122 Signed Impressions: Service Date/Time: Wednesday, March 22, 2017 08:14 - CONCLUSION: 1. Mild diffusely heterogeneous transplant liver echotexture with small amount of volume loss. No definitive evidence for portal venous gas or significant pneumobilia by ultrasound exam. However, examination was not specifically tailored for extended interrogation of the hepatic vasculature. 2. No sonographic evidence for intra-or extrahepatic ductal dilatation. 3. Trace ascites and small bilateral pleural effusions. Everton Cruz MD Chest X-Ray 03/22/17 0000 Signed Impressions: Service Date/Time: Wednesday, March 22, 2017 02:37 - CONCLUSION: Infiltrate in the left lung inferiorly. Left subclavian Central line in good position. Tubes and catheter is in good position. Valerio Jerome MD Chest CT 03/22/17 0000 Signed Impressions: Service Date/Time: Wednesday, March 22, 2017 15:37 - CONCLUSION: There is ascites and bilateral pleural effusion and worsening left lung consolidation. Indu Cunningham MD Abdomen/Pelvis CT 03/22/17 0000 Signed Impressions: Service Date/Time: Wednesday, March 22, 2017 15:40 - CONCLUSION: Increase in ascites and mesenteric congestion since the prior exam. Indu Cunningham MD Abdomen X-Ray 03/22/17 0000 Signed Impressions: Service Date/Time: Wednesday, March 22, 2017 07:00 - CONCLUSION: No findings characteristic of perforation. Nasogastric tube coiled within the fundus of the stomach. Emilio Snow MD Head CT 03/21/17 0000 Signed Impressions: Service Date/Time: Tuesday, March 21, 2017 23:27 - CONCLUSION: Normal examination. Valerio Jerome MD Physical Exam CONSTITUTIONAL/GENERAL: This is an adequately nourished patient, in no apparent distress. TUBES/LINES/DRAINS: SKIN: No jaundice, rashes, or lesions. Skin temperature appropriate.Non diaphoretic. EYES: Pupils reactive . + minimal scleral icterus. No injection or drainage. Fundi not examined. NECK: Trachea midline. CARDIOVASCULAR: Regular rate and rhythm without murmurs, gallops, or rubs. No JVD. Periphery is poorly perfused RESPIRATORY/CHEST: Symmetric, respirations. Clear to auscultation. Breath sounds equal bilaterally. No wheezes, rales, or rhonchi. GASTROINTESTINAL: Abdomen soft, no reaction to palpation, + mildly-to- moderately distended. No hepato-splenomegaly, or palpable masses. No guarding. Bowel sounds present. GENITOURINARY: Without palpable bladder distension. Mcpherson catheter in place with clear yellow urine MUSCULOSKELETAL: Extremities without clubbing, or edema no cyanosis . No mottling or clubbing. NEUROLOGICAL: sedated PSYCHIATRIC: Unable to assess Assessment & Plan Remarks Sepsis, septic shock, Acinetobacter - sensitivities P clinically improved Source is likley bacteremiic gram negative PNA 2/2 Acinetobacter LLL PNA , gram negative Acinetobacter bacteremia Acute VDRF ARF on CKD Immunosuppressed, sp liver transplant Critically ill, more stable today REC's: cont Amp/sulbactam, meropenem, tobra levaquine untill sensitivites availabel on Acinetobater; then will adjust per sensititivty report - cont other abx for now (vanco, micafungin) - follow sputum and blood clx dw RN dw family @ b/s Celestina Anaya MD Mar 23, 2017 18:42
[2017-03-23] MEDS: LACTULOSE SYRUP 20 GM/30 ML CUP PO SCH (20:10)
[2017-03-23] MEDS: RIFAXIMIN 550 MG TAB OG-TUBE SCH (20:10)
[2017-03-24] VITALS (29 sets, daily range): BP systolic 88–169; BP diastolic 54–93; PULSE 65–144; RESP 15–22; TEMP 96.7–98.4; O2SAT 95–100
[2017-03-24] MEDS: PROPOFOL 1000 MG/100 ML INJ 100 ML IV SCH ×4 (01:34→20:50)
[2017-03-24] MEDS: RESP: ALBUTEROL 2.5 MG/IPRATROPIUM 0.5 MG NEB (SCH) NEB ×4 (03:18→20:24)
[2017-03-24] MEDS: CHLORHEXIDINE GLUCONATE 2 % 1 PACK (2 CLOTHS) TOP SCH (04:00)
[2017-03-24] MEDS: HIGH DOSE INSULIN NOVOLIN REGULAR SUPPLEMENTAL SCALE SQ SCH ×6 (04:12→23:00)
[2017-03-24] MEDS: MEROPENEM INJ 1,000 MG in SODIUM CHLORIDE 0.9% INJ 100 ML IV SCH (04:14)
[2017-03-24] MEDS: AMPICILLIN-SULBACTAM INJ 3 GM in SODIUM CHLORIDE 0.9% INJ 100 ML IV SCH ×2 (04:14→16:33)
[2017-03-24] MEDS: HYDROCORTISONE SOD SUCCINATE 100 MG VIAL IV PUSH SCH ×3 (04:14→20:49)
[2017-03-24] MEDS: LEVOFLOXACIN 750 MG PREMIX INJ 150 ML IV SCH (04:14)
[2017-03-24 05:47] LABS: HEMATOCRIT 22.8 % (39.0-51.0); MEAN CELL VOLUME 82.7 FL (80.0-100.0); MEAN CORPUSCULAR HEMOGLOBIN 27.9 PG (27.0-34.0); MEAN CORPUSCULAR HGB CONC 33.7 % (32.0-36.0); PLATELET COUNT 63 TH/MM3 (150-450); RED BLOOD COUNT 2.76 MIL/MM3 (4.50-5.90); RED CELL DISTRIBUTION WIDTH 16.2 % (11.6-17.2); WHITE BLOOD COUNT 8.8 TH/MM3 (4.0-11.0)
[2017-03-24 05:58] LABS: REVIEW FLAG FINAL
[2017-03-24 06:18] LABS: BICARBONATE 25.8 MEQ/L (21.0-32.0); POTASSIUM 4.2 MEQ/L (3.5-5.1)
[2017-03-24 06:20] LABS: INDIRECT BILIRUBIN 0.9 MG/DL (0.0-0.8); TOTAL BILIRUBIN ADULT 1.5 MG/DL (0.2-1.0)
[2017-03-24] MEDS: CHLORHEXIDINE 0.12% (ORAL KIT) 15 ML CUP MT SCH ×3 (08:10→21:02)
[2017-03-24] MEDS: PANTOPRAZOLE SODIUM 40 MG VIAL IV SCH ×2 (08:11→20:49)
[2017-03-24] MEDS: LACTULOSE SYRUP 20 GM/30 ML CUP PO SCH ×2 (08:12→20:49)
[2017-03-24] MEDS: RIFAXIMIN 550 MG TAB OG-TUBE SCH ×2 (08:12→20:49)
[2017-03-24] MEDS: SODIUM CHLORIDE 0.9% FLUSH 10 ML FLUSH IV FLUSH SCH ×2 (08:12→21:00)
[2017-03-24] MEDS: FOLIC ACID 1 MG TAB PO SCH ×2 (08:13→20:49)
[2017-03-24] MEDS: DOCUSATE SODIUM 50 MG/SENNA 8.6 MG TAB PO SCH ×2 (08:13→20:49)
[2017-03-24] MEDS: CHOLECALCIFEROL (VIT D3) 1000 UNIT TAB PO SCH ×2 (08:13→20:49)
[2017-03-24] MEDS: TACROLIMUS 1 MG CAP PO SCH (10:06)
[2017-03-24] MEDS: fentaNYL DRIP 250 ML IV SCH ×2 (13:40→20:48)
[2017-03-24] MEDS ORDERED: FUROSEMIDE 100 MG/10 ML VIAL IV PUSH ONE (14:30)
--- NOTE | 2017-03-24 15:19 | HHI.IDPN ---
Subjective Subjective Remarks doing quite well off pressors improving resp status worsening kidney fnx, oliguriac Antibiotics Amp/S merpenem leva tobra vanco micafungin Allergies: Coded Allergies: *MDRO Multi-Drug Resistant Organism (Verified Adverse Reaction, Unknown, ) MRSA (heel wound) - 07/23/16 MRSA PCR Screen POSITIVE-03/22/17 Objective . Vital Signs Date Time Temp Pulse Resp B/P Pulse Ox O2 Delivery O2 Flow Rate FiO2 03/24/17 14:00 75 03/24/17 12:00 35 03/24/17 12:00 96.7 68 15 114/74 100 128/67 03/24/17 12:00 68 03/24/17 12:00 67 114/74 128/67 03/24/17 11:19 100 35 03/24/17 11:00 68 15 103/67 100 119/63 03/24/17 10:00 67 18 91/54 99 100/56 03/24/17 10:00 67 03/24/17 09:00 68 22 88/55 99 95/54 03/24/17 08:00 67 124/74 138/70 03/24/17 08:00 98.2 70 19 124/74 100 138/70 03/24/17 08:00 35 03/24/17 08:00 70 03/24/17 07:28 100 35 03/24/17 06:00 68 03/24/17 04:08 100 40 03/24/17 04:00 98.0 67 17 95/63 100 110/60 03/24/17 04:00 40 03/24/17 04:00 67 95/63 110/60 03/24/17 04:00 67 03/24/17 02:00 69 03/24/17 01:10 100 40 03/24/17 00:00 98.4 68 17 102/65 100 117/62 03/24/17 00:00 40 03/24/17 00:00 68 102/65 117/62 03/24/17 00:00 68 03/23/17 22:06 100 40 03/23/17 22:00 69 03/23/17 20:16 100 40 03/23/17 20:00 69 03/23/17 20:00 40 03/23/17 20:00 98.1 69 15 121/70 100 142/70 03/23/17 20:00 69 121/70 142/70 03/23/17 18:00 72 03/23/17 16:00 40 03/23/17 16:00 98.4 73 15 119/68 100 142/68 03/23/17 16:00 73 03/23/17 16:00 73 119/68 142/68 03/23/17 15:31 100 40 03/23/17 03/23/17 03/24/17 15:00 23:00 07:00 Intake Total 1298 ml 1497 ml 375 ml Output Total 550 ml 400 ml 250 ml Balance 748 ml 1097 ml 125 ml Intake IV Total 1198 ml 1437 ml 315 ml Albumin 100 ml Other 60 ml 60 ml Output Urine Total 550 ml 400 ml 250 ml # Bowel Movements 0 1 . Laboratory Tests Test 03/23/17 03/23/17 03/24/17 05:35 12:52 04:00 White Blood Count 7.6 TH/MM3 8.8 TH/MM3 Red Blood Count 2.87 MIL/MM3 2.76 MIL/MM3 Hemoglobin 8.1 GM/DL 7.9 GM/DL 7.7 GM/DL Hematocrit 23.5 % 22.7 % 22.8 % Mean Corpuscular Volume 81.9 FL 82.7 FL Mean Corpuscular Hemoglobin 28.3 PG 27.9 PG Mean Corpuscular Hemoglobin 34.6 % 33.7 % Concent Red Cell Distribution Width 16.0 % 16.2 % Platelet Count 72 TH/MM3 63 TH/MM3 Mean Platelet Volume 8.7 FL 9.0 FL Laboratory Tests Test 03/23/17 03/24/17 04:00 04:00 Sodium Level 135 MEQ/L 137 MEQ/L Potassium Level 4.8 MEQ/L 4.2 MEQ/L Chloride Level 101 MEQ/L 99 MEQ/L Carbon Dioxide Level 22.8 MEQ/L 25.8 MEQ/L Anion Gap 11 MEQ/L 12 MEQ/L Blood Urea Nitrogen 63 MG/DL 69 MG/DL Creatinine 2.43 MG/DL 2.49 MG/DL Estimat Glomerular Filtration 27 ML/MIN 26 ML/MIN Rate Random Glucose 106 MG/DL 160 MG/DL Calcium Level 7.1 MG/DL 7.6 MG/DL Protein Corrected Calcium 7.6 MG/DL Total Bilirubin 1.5 MG/DL 1.5 MG/DL Direct Bilirubin 0.7 MG/DL 0.6 MG/DL Indirect Bilirubin 0.8 MG/DL 0.9 MG/DL Aspartate Amino Transf 30 U/L 26 U/L (AST/SGOT) Alanine Aminotransferase 21 U/L 19 U/L (ALT/SGPT) Alkaline Phosphatase 63 U/L 78 U/L Total Protein 6.1 GM/DL 6.2 GM/DL Albumin 2.5 GM/DL 2.2 GM/DL Microbiology Date/Time Procedure Status Source Growth 03/21/17 18:08 Aerobic Blood Culture - Final Resulted Blood Peripheral Acinetobacter Baumannii/Haemol 03/21/17 18:08 Anaerobic Blood Culture - Preliminary Resulted Blood Peripheral NO GROWTH IN 3 DAYS 03/21/17 18:10 Aerobic Blood Culture - Preliminary Resulted Blood Peripheral NO GROWTH IN 3 DAYS 03/21/17 18:10 Anaerobic Blood Culture - Preliminary Resulted Blood Peripheral NO GROWTH IN 3 DAYS 03/21/17 18:30 Urine Culture - Final Complete Urine Catheterized Urine NO GROWTH IN 48 HOURS. 03/21/17 18:30 Legionella Antigen - Final Complete Urine Catheterized Urine PRESUMPTIVE NEGATIVE FOR LEGIONELLA P... 03/21/17 18:30 Streptococcus pneumoniae Antigen (M - Final Complete Urine Catheterized Urine PRESUMPTIVE NEGATIVE FOR STREPTOCOCCU... 03/22/17 06:05 Gram Stain - Final Complete Bronchial Washings Other 03/22/17 06:05 Bronchial Culture - Final Complete Bronchial Washings Other NO GROWTH IN 48 HOURS. 03/22/17 06:05 Acid Fast Stain - Final Resulted Bronchial Washings Other NO ACID FAST BACILLI SEEN 03/22/17 06:05 Mycobacterial Culture Resulted Bronchial Washings Other Pending 03/22/17 06:05 Fungal Smear - Final Resulted Bronchial Washings Other NO FUNGAL ELEMENTS SEEN. 03/22/17 06:05 Fungal Culture Resulted Bronchial Washings Other Pending 03/23/17 01:10 Gram Stain - Final Resulted Sputum Endotracheal 03/23/17 01:10 Sputum Culture - Preliminary Resulted Sputum Endotracheal RARE GROWTH NORMAL RESPIRATORY MIKHAIL ... 03/24/17 00:50 Stool Occult Blood (MARSHAL) - Final Complete Stool Stool HEMOCCULT NEGATIVE Imaging Last Impressions Abdomen Ultrasound 03/22/172122 Signed Impressions: Service Date/Time: Wednesday, March 22, 2017 08:14 - CONCLUSION: 1. Mild diffusely heterogeneous transplant liver echotexture with small amount of volume loss. No definitive evidence for portal venous gas or significant pneumobilia by ultrasound exam. However, examination was not specifically tailored for extended interrogation of the hepatic vasculature. 2. No sonographic evidence for intra-or extrahepatic ductal dilatation. 3. Trace ascites and small bilateral pleural effusions. Everton Cruz MD Chest X-Ray 03/22/17 Signed Impressions: Service Date/Time: Wednesday, March 22, 2017 02:37 - CONCLUSION: Infiltrate in the left lung inferiorly. Left subclavian Central line in good position. Tubes and catheter is in good position. Valerio Jerome MD Chest CT 03/22/17 Signed Impressions: Service Date/Time: Wednesday, March 22, 2017 15:37 - CONCLUSION: There is ascites and bilateral pleural effusion and worsening left lung consolidation. Indu Cunningham MD Abdomen/Pelvis CT 03/22/17 Signed Impressions: Service Date/Time: Wednesday, March 22, 2017 15:40 - CONCLUSION: Increase in ascites and mesenteric congestion since the prior exam. Indu Cunningham MD Abdomen X-Ray 03/22/17 Signed Impressions: Service Date/Time: Wednesday, March 22, 2017 07:00 - CONCLUSION: No findings characteristic of perforation. Nasogastric tube coiled within the fundus of the stomach. Emilio Snow MD Head CT 03/21/17 Signed Impressions: Service Date/Time: Tuesday, March 21, 2017 23:27 - CONCLUSION: Normal examination. Valerio Jerome MD Physical Exam CONSTITUTIONAL/GENERAL: This is an adequately nourished patient, in no apparent distress. TUBES/LINES/DRAINS: SKIN: + mild jaundice, rashes, or lesions. Skin temperature appropriate.Non diaphoretic. EYES: Pupils reactive . + minimal scleral icterus. No injection or drainage. Fundi not examined. NECK: Trachea midline. CARDIOVASCULAR: Regular rate and rhythm without murmurs, gallops, or rubs. No JVD. Periphery is poorly perfused RESPIRATORY/CHEST: Symmetric, respirations. Clear to auscultation. Breath sounds equal bilaterally. No wheezes, rales, or rhonchi. GASTROINTESTINAL: Abdomen soft, no reaction to palpation, + mildly-to- moderately distended. No hepato-splenomegaly, or palpable masses. No guarding. Bowel sounds present. GENITOURINARY: Without palpable bladder distension. Mcpherson catheter in place with clear yellow urine MUSCULOSKELETAL: Extremities without clubbing, + increasing edema no cyanosis . No mottling or clubbing. NEUROLOGICAL: sedated PSYCHIATRIC: Unable to assess Assessment & Plan Remarks Sepsis, septic shock, Acinetobacter chávez S clinically improved Source is likley bacteremiic gram negative PNA 2/2 Acinetobacter : though no growth on clx, Gstain was with GNBs LLL PNA , gram negative Acinetobacter bacteremia Acute VDRF ARF on CKD Immunosuppressed, sp liver transplant Critically ill, stable REC's:cont Amp/sulbactam, levaquine other option cefepime, fortaz; will avoid Rocephin in liver transplant pt 2 /2 cholestatic risks dc meropenem, tobra vanco, micafungin chk urine eos dw RN dw Dr Razia Anaya,Celestina Coy MD Mar 24, 2017 15:19
--- NOTE | 2017-03-24 15:50 | HHI.CCPN ---
Subjective Remarks/Hospital Course Hospital Course: 67-year-old male with past medical history of primary sclerosing cholangitis with orthotopic liver transplant at [facility] in 2001, hypertension, atrial fibrillation status post ablation, hyperlipidemia, diabetes mellitus who presents to [facility] emergency department with altered mental status, fever, urinary incontinence. He was brought in by his . She states that this morning he was doing well and participated with home health physical therapy. When his returned home this evening she found him lethargic and minimally responsive. He had a cup full of mucus and when she inquired about it he stated that he had vomited. He refused ambulance transport. He had a temperature of 103 upon arrival to the emergency department. His states he told ED staff that he had experienced dysuria starting today. He has h/o BPH and UTI in the past. He has chronic low back pain. He denies headache or neck stiffness. His states he returned to his baseline mental status while in the ED and was conversant with her. He had no focal weakness and no witnessed seizure. His ED workup demonstrated U/a with moderate bacteria, 13 WBC, 2 RBC. White blood cell count was 14 with 9% bands, hemoglobin 10.5, platelets 135, AST 45, ALT 31, alkaline phosphatase 172, PT 12.3, INR 1.1 . Creatinine was 2.32 (baseline about 1.6-2), BUN 73, sodium 132 , potassium 5.2, bicarbonate 17 His initial lactic acid was 1.6. He was given Zosyn and 3 L NS bolus and admitted to the hospitalist service. He was complaining of chronic back pain and was anxious/agitated so was given Ativan 0.5 mg IV (chronically on Xanax). ED physician Dr. Orozco was called in because he became unresponsive and he was hypopneic with inadequate respirations. Sats were in the 60s. He complained to his that he could not see. He was hypotensive in 70s and post-intubation BP dropped to 60s/40s and [facility] was called. CVL was placed and he was started on levophed and vasopressin. He is awake on vent and answering questions yes/no. Subjective: 03/22: patient in refractory distributive shock. I evaluated the patient multiple times throughout the day beginning around 0600 and at frequent intervals. Patient remains acidotic on maximal vasopressor therapy. I had discussions with Dr. Anaya with ID, cultures are growing out Acinetobacter. abx changed to tobra, vanc, meropenem, levaquin, unasyn. continued ivf resuscitation throughout the day guided by frequent IVC and cardiac echo. formal echo with grossly preserved LV function and mild RV dysfunction. but IVC continued to be collapsable. acute renal failure worsening and acidosis severe. started on bicarb drip. repeat CT abd/pelvis performed. I personally transported patient down to CT scanner given how severely unstable the patient was. Discussed with general surgery and interval CT scan is necessary to eval for intra-abdominal source of sepsis. interval CT without change. most likely Acinetobacter pneumonia with overwhelming septic shock. discussed with at length multiple times today regarding his life-threatening infection and his high risk of mortality. 03/23: vasopressors weaning down. patient waking up, following commands. still persistently acidotic, in multiorgan failure. renal dysfunction persists and oliguric. acinetobacter sensitivities not resulted. 03/24: off vasopressors. clinically beginning to improve. Acinetobacter is pansensitive. oliguria persists, but Cr stable and no current indication for acute HD. Objective Vital Signs Date Time Temp Pulse Resp B/P Pulse Ox O2 Delivery O2 Flow Rate FiO2 03/24/17 14:00 75 03/24/17 12:00 35 03/24/17 12:00 96.7 15 114/74 100 128/67 03/21/17 23:12 Ventilator 03/21/17 18:39 2 Intake and Output 03/23/17 03/23/17 03/23/17 07:59 15:59 23:59 Intake Total 2356 ml 1298 ml 1497 ml Output Total 560 ml 550 ml 400 ml Balance 1796 ml 748 ml 1097 ml Result Diagram: 03/24/17 0400 03/24/17 0400 Other Results Microbiology Date/Time Procedure Status Source Growth 03/21/17 18:30 Urine Culture - Final Complete Urine Catheterized Urine NO GROWTH IN 48 HOURS. 03/21/17 18:30 Legionella Antigen - Final Complete Urine Catheterized Urine PRESUMPTIVE NEGATIVE FOR LEGIONELLA P... 03/21/17 18:30 Streptococcus pneumoniae Antigen (M - Final Complete Urine Catheterized Urine PRESUMPTIVE NEGATIVE FOR STREPTOCOCCU... 03/22/17 06:05 Gram Stain - Final Complete Bronchial Washings Other 03/22/17 06:05 Bronchial Culture - Final Complete Bronchial Washings Other NO GROWTH IN 48 HOURS. 03/24/17 00:50 Stool Occult Blood (MARSHAL) - Final Complete Stool Stool HEMOCCULT NEGATIVE Objective Remarks GENERAL: Chronically ill-appearing 67-year-old male who is orotracheally intubated. SKIN: Warm and dry. HEAD: Atraumatic. Normocephalic. EYES: Pupils equal and round, 2 mm and reactive bilaterally. No scleral icterus. No injection or drainage. ENT: Mucous membranes moist NECK: Trachea midline. jvd difficult to assess due to body habitus. CARDIOVASCULAR: Distant heart sounds, Regular rate and rhythm. RESPIRATORY: PRVC. fio2 40%. equal chest rise. GASTROINTESTINAL: Abdomen soft, non-tender, nondistended. no guarding. MUSCULOSKELETAL: There is muscular atrophy of intrinsics of bilateral hands. Extremities without clubbing, cyanosis, or edema. No obvious deformities. NEUROLOGICAL: RASS -2. sedated, follows commands. A/P Assessment and Plan Assessment: 67yM s/p OLTx in 2001 now with septic shock secondary to Acinetobacter bacteremia and pneumonia, evidence of severe multi-organ system failure, acute kidney injury which is severe and persistent, acute hypoxic and hypercarbic respiratory failure. early signs of improvement, but off pathway and remains critically ill. continue our aggressive goals. failing SBT today. tenuous uop. still requires continued support to prevent decompensation. NEURO: Vision change Acute metabolic encephalopathy Peripheral neuropathy Patient reported to that he could not see before intubation. ?secondary to profound hypotension and hypoperfusion. Pupils reactive, unable to assess vision currently due to intubation and clinical condition. CT brain negative. Obtaned Ammonia level -->28 EEG 03/22: severe slowing, no ictal focus. Fentanyl drip for analgosedation propofol for goal RASS -2. Hold Neurontin 300 mg by mouth 3 times a day. Hold Xanax RESP: Acute hypoxic and hypercarbic respiratory failure History of tobacco abuse Acute healthcare associated left lower lobe pneumonia Ventilator bundle, hob @ 30 degrees, wean fio2 for spo2 > 90% Duoneb every 6 hours. Albuterol every [address] chest - dense consolidation of LLL with air bronchograms. Bronchoscopy with BAL lingula 03/22 continue daily SBTs. CV: Septic shock with multiorgan failure- slowly improving. History of atrial fibrillation status post ablation (currently sinus rhythm) History of hypertension Hyperlipidemia Initial troponin 0.03, mild increase to 0.06 is likely related to sepsis. Echo from 01/23/17 - +LVH, EF 60-65%. No regional wall motion abnormalities. Left atrial dilation. Echo 03/22- preserved LV function, mild RV dysfunction. collapsable IVC. Hold norvasc, atorvastatin, lasix, spironolactone. Continue pulse contour analysis. 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 Patient has been followed by Dr. Mallory as outpatient. He has not been able to follow closely with [facility] due to financial reasons. states he has [facility] [place] and [facility]. She states he has been referred to [facility] for possible repeat transplant due to plasma cell hepatitis but has not had followup appointment yet. prograf level 5-->7. decrease prograf to 1mg daily. f/u daily prograf. CT abd/pelvis non-contrast - pneumobilia, fecal impaction, no free air or fluid. repeat serial CT abd pelvis: no change. Consult GI, patient known to Dr. Mallory. UROLOGY: BPH Hold finasteride and tamsulosin FEN/RENAL: RAN- severe. Oliguria- severe. Hyperkalemia Hypomagnesemia Lactic Acidosis- resolved. Anion-gap metabolic acidosis- improving. Intravascular volume overload Mcpherson in place. Monitor intake and output. Monitor electrolytes. Patient is oliguric and may eventually require renal replacement therapy small trial of forced diuresis with lasix 100mg iv x 1. may require more forced diuresis. ID: Septic shock LLL HCAP- Acinetobacter UTI Pneumobilia Leukocytosis Bandemia D/c tobramycin and meropenem Continue Unasyn and Levaquin. ID consult: Dr. Anaya. HEME: Chronic anemia Thrombocytopenia Monitor CBC. ENDO: Diabetes mellitus Monitor Glucose every 4 hours. Medium dose sliding scale as indicated. PROPH: SCDs. Hold pharmacologic DVT prophylaxis as patient already has mild thrombocytopenia which may worsen, and may need further procedures/OR. Protonix 40 mg IV daily for stress ulcer prophylaxis. ACCESS: Left subclavian central venous line placed 03/21 #4. R radial art line 03/21 #4. updated at bedside. Full code This patient remains critically ill with one or more organ systems which are or may become a threat to life. I have spent in excess of 31 minutes discontinuously in the care and management of this patient. This time is exclusive of procedures, and includes, but is not limited to, evaluation of the patient, review of the medical record, discussions with family, consultants, nursing staff, or respiratory therapy, and documentation in the medical record. Juan R Randle MD Mar 24, 2017 15:50
--- NOTE | 2017-03-24 16:14 | HHI.GIFU ---
Subjective Remarks Pt intubated. FAmily at bedside. Objective Vitals I&O Vital Signs Date Time Temp Pulse Resp B/P Pulse Ox O2 Delivery O2 Flow Rate FiO2 03/24/17 15:22 100 35 03/24/17 14:00 75 03/24/17 12:00 35 03/24/17 12:00 96.7 68 15 114/74 100 128/67 03/24/17 12:00 68 03/24/17 12:00 67 114/74 128/67 03/24/17 11:19 100 35 03/24/17 11:00 68 15 103/67 100 119/63 03/24/17 10:00 67 18 91/54 99 100/56 03/24/17 10:00 67 03/24/17 09:00 68 22 88/55 99 95/54 03/24/17 08:00 67 124/74 138/70 03/24/17 08:00 98.2 70 19 124/74 100 138/70 03/24/17 08:00 35 03/24/17 08:00 70 03/24/17 07:28 100 35 03/24/17 06:00 68 03/24/17 04:08 100 40 03/24/17 04:00 98.0 67 17 95/63 100 110/60 03/24/17 04:00 40 03/24/17 04:00 67 95/63 110/60 03/24/17 04:00 67 03/24/17 02:00 69 03/24/17 01:10 100 40 03/24/17 00:00 98.4 68 17 102/65 100 117/62 03/24/17 00:00 40 03/24/17 00:00 68 102/65 117/62 03/24/17 00:00 68 03/23/17 22:06 100 40 03/23/17 22:00 69 03/23/17 20:16 100 40 03/23/17 20:00 69 03/23/17 20:00 40 03/23/17 20:00 98.1 69 15 121/70 100 142/70 03/23/17 20:00 69 121/70 142/70 03/23/17 18:00 72 I/O 03/23/17 03/23/17 03/23/17 03/24/17 03/24/17 03/24/17 07:00 15:00 23:00 07:00 15:00 23:00 Intake Total 2356 ml 1298 ml 1497 ml 375 ml 147 ml Output Total 560 ml 550 ml 400 ml 250 ml 350 ml Balance 1796 ml 748 ml 1097 ml 125 ml -203 ml Intake IV Total 2256 ml 1198 ml 1437 ml 315 ml 87 ml Albumin 100 ml 100 ml Tube Irrigant 60 ml Other 60 ml 60 ml Output Urine Total 260 ml 550 ml 400 ml 250 ml 350 ml Gastric Drainage Total 300 ml # Bowel Movements 1 0 1 1 Laboratory Laboratory Tests Test 03/23/17 03/24/17 03/24/17 20:40 04:00 08:20 Tacrolimus (Prograf) Level 7.2 7.7 White Blood Count 8.8 Red Blood Count 2.76 Hemoglobin 7.7 Hematocrit 22.8 Mean Corpuscular Volume 82.7 Mean Corpuscular Hemoglobin 27.9 Mean Corpuscular Hemoglobin 33.7 Concent Red Cell Distribution Width 16.2 Platelet Count 63 Mean Platelet Volume 9.0 Sodium Level 137 Potassium Level 4.2 Chloride Level 99 Carbon Dioxide Level 25.8 Anion Gap 12 Blood Urea Nitrogen 69 Creatinine 2.49 Estimat Glomerular Filtration 26 Rate Random Glucose 160 Calcium Level 7.6 Total Bilirubin 1.5 Direct Bilirubin 0.6 Indirect Bilirubin 0.9 Aspartate Amino Transf 26 (AST/SGOT) Alanine Aminotransferase 19 (ALT/SGPT) Alkaline Phosphatase 78 Total Protein 6.2 Albumin 2.2 Date/Time Procedure Status Source Growth 03/24/17 00:50 Stool Occult Blood (MARSHAL) - Final Complete Stool Stool HEMOCCULT NEGATIVE 03/23/17 01:10 Gram Stain - Final Resulted Sputum Endotracheal 03/23/17 01:10 Sputum Culture - Preliminary Resulted Sputum Endotracheal RARE GROWTH NORMAL RESPIRATORY MIKHAIL ... 03/22/17 06:05 Fungal Smear - Final Resulted Bronchial Washings Other NO FUNGAL ELEMENTS SEEN. 03/22/17 06:05 Fungal Culture Resulted Bronchial Washings Other Pending 03/22/17 06:05 Acid Fast Stain - Final Resulted Bronchial Washings Other NO ACID FAST BACILLI SEEN 03/22/17 06:05 Mycobacterial Culture Resulted Bronchial Washings Other Pending 03/21/17 18:30 Urine Culture - Final Complete Urine Catheterized Urine NO GROWTH IN 48 HOURS. 03/21/17 18:30 Legionella Antigen - Final Complete Urine Catheterized Urine PRESUMPTIVE NEGATIVE FOR LEGIONELLA P... 03/21/17 18:30 Streptococcus pneumoniae Antigen (M - Final Complete Urine Catheterized Urine PRESUMPTIVE NEGATIVE FOR STREPTOCOCCU... 03/21/17 18:10 Aerobic Blood Culture - Preliminary Resulted Blood Peripheral NO GROWTH IN 3 DAYS 03/21/17 18:10 Anaerobic Blood Culture - Preliminary Resulted Blood Peripheral NO GROWTH IN 3 DAYS 03/21/17 18:08 Aerobic Blood Culture - Final Resulted Blood Peripheral Acinetobacter Baumannii/Haemol 03/21/17 18:08 Anaerobic Blood Culture - Preliminary Resulted Blood Peripheral NO GROWTH IN 3 DAYS Imaging Last Impressions Abdomen Ultrasound 03/22/172122 Signed Impressions: Service Date/Time: Wednesday, March 22, 2017 08:14 - CONCLUSION: 1. Mild diffusely heterogeneous transplant liver echotexture with small amount of volume loss. No definitive evidence for portal venous gas or significant pneumobilia by ultrasound exam. However, examination was not specifically tailored for extended interrogation of the hepatic vasculature. 2. No sonographic evidence for intra-or extrahepatic ductal dilatation. 3. Trace ascites and small bilateral pleural effusions. Everton Cruz MD Chest X-Ray 03/22/17 0000 Signed Impressions: Service Date/Time: Wednesday, March 22, 2017 02:37 - CONCLUSION: Infiltrate in the left lung inferiorly. Left subclavian Central line in good position. Tubes and catheter is in good position. Valerio Jerome MD Chest CT 03/22/17 0000 Signed Impressions: Service Date/Time: Wednesday, March 22, 2017 15:37 - CONCLUSION: There is ascites and bilateral pleural effusion and worsening left lung consolidation. Indu Cunningham MD Abdomen/Pelvis CT 03/22/17 0000 Signed Impressions: Service Date/Time: Wednesday, March 22, 2017 15:40 - CONCLUSION: Increase in ascites and mesenteric congestion since the prior exam. Inud Cunningham MD Abdomen X-Ray 03/22/17 0000 Signed Impressions: Service Date/Time: Wednesday, March 22, 2017 07:00 - CONCLUSION: No findings characteristic of perforation. Nasogastric tube coiled within the fundus of the stomach. Emilio Snow MD Head CT 03/21/17 0000 Signed Impressions: Service Date/Time: Tuesday, March 21, 2017 23:27 - CONCLUSION: Normal examination. Valerio Jerome MD Physical Exam HEENT: Normocephalic; atraumatic; no jaundice. CHEST: CTA, diminished, OETT to vent. CARDIAC: RRR ABDOMEN: Soft, nondistended, nontender; hepatosplenomegaly; bowel sounds are present in all four quadrants. EXTREMITIES: No clubbing, cyanosis, or edema. SKIN: Generalized pallor [employer]/SANDBLASTER: Sedated on vent. 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 He has not been seen at the [facility] and 5-10 years secondary to financial issues. Unfortunately, he cannot make an appointment to follow up at [facility] until he makes a payment of $8,000 for an outstanding balance. The tells me charles there is no way she can make this payment and that she will have to "deal with that later." We did refer patient to [facility], but patient was declined secondary to having his transplant done at [facility] and they said that he would need to follow up at [facility]. 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 Similar histologic findings can also be seen in plasma cell rich rejection. Correlation with recent BILLY, ASMA, and serum IgG level is recommended. Typical features of acute cellular rejection are not seen. There is no evidence of chronic biliary tract disease or active steatohepatitis. Labs from January 28, 2017 revealed IgG total 3887, IgG1 2359, IgG3 57, IgG4 > 300.00. BILLY negative, ASMA negative. T. Bili 1.5, AST 30, ALT 21, ALk Phosph 63. Prograf level 5.2. On Solucortef, Prograf. MELD 16. Called placed to Tiana Lo at [facility] to update on patient's condition and to see if he would able to be seen at their facility ([facility] has declined patient). - Constipation, Fecal impaction. Abdomen/Pelvis CT (03/21/17)-----> Moderate stool throughout the colon. Small moderate of the bell hepatis I believe is biliary air. Other solid organs are unremarkable. Dense infiltrate left lower lobe within the lung. (+) BM. Lactulose with BID dosing. - Anemia with drop in Hgb. 10.5/32.9-----> 8.1/23.5. Hgb 7.9 yesterday 7.7 today. No obvious active bleeding. hemoccult neg. Will increase protonix to BID dosing. - Coagulopathy. PT 18.1, INR 1.6. - Sepsis with multisystem failure. Pt with bandemia, UTI/PNA. Bronchial washings pending, urine negative for legionella and streptococcus, urine cx (-) , bcx no growth Acinetobacter, Levaquin, Ampicillicin, Meropenem, Zosyn. On vasopressors. CT as above. - Resp. Failure, HCAP. Abx, Nebs. Vent per CCM. - RAN with electrolyte abnormalities. Worsening, Creat 2.49. - AMS. Ammonia 28. EEG with diffusely low recording, could be medication effect as the patient was on fentanyl. No hemisphere asymmetries are noted. No epileptiform or seizure activity seen. - Hx HTN, hyperlipidemia, BPH, per attending. PLAN: - ok to resume TF - continue lactulose - continue xifaxan - Cont. steroids - Cont. abx, per ID - Cont. PPI - CBC, CMP, PT/INR in am - Supportive care - CCM following - GS following - ID following - Further recommendations to follow based on results of above - Possible EGD, timing to be determined based on repeat labs and clinical status. - Of note, patient has been declined by [facility] secondary to having original transplant at [facility] - [facility] will not see patient until they have resolved outstanding balance ($8,000 ), states that she is unable to do this- Call placed to Tiana Lo at [facility] to update on condition and to see if they would consider seeing patient given his condition. - Pt seen and examined by Dr. Tate and myself and this note is written on his behalf Faith Fierro Mar 24, 2017 16:14
[2017-03-24] MEDS ORDERED: MAGNESIUM SULFATE 1 GM PREMIX 100 ML ONE (16:24)
[2017-03-24] MEDS: MAGNESIUM SULFATE 1 GM PREMIX 100 ML IV SCH ×2 (16:33→18:07)
[2017-03-24] MEDS: FUROSEMIDE INJ 100 MG in SODIUM CHLORIDE 0.9% INJ 90 ML IV SCH ×2 (16:42→21:04)
[2017-03-24 17:09] LABS: BICARBONATE 26.2 MEQ/L (21.0-32.0); MAGNESIUM 1.4 MG/DL (1.5-2.5); POTASSIUM 3.8 MEQ/L (3.5-5.1)
[2017-03-24] MEDS ORDERED: POTASSIUM CHLOR 20 MEQ PREMIX 100 ML IV ONE (18:45)
[2017-03-24] MEDS ORDERED: TOBRAMYCIN IV SCH (20:00)
[2017-03-24] MEDS ORDERED: SODIUM CHLORIDE 0.9% IV SCH (20:00)
[2017-03-24 22:28] LABS: BICARBONATE 26.9 MEQ/L (21.0-32.0); MAGNESIUM 1.7 MG/DL (1.5-2.5); POTASSIUM 3.6 MEQ/L (3.5-5.1)
[2017-03-24] MEDS: POTASSIUM CHLOR 20 MEQ PREMIX 100 ML IV SCH ×2 (23:26→23:39)
[2017-03-24] MEDS: MAGNESIUM SULFAT 1 GM PREMIX 100 ML x2 bags IV SCH ×2 (23:26→23:39)
[2017-03-25] VITALS (31 sets, daily range): BP systolic 61–158; BP diastolic 44–89; PULSE 58–133; RESP 15–17; TEMP 96.7–98.6; O2SAT 99–100
[2017-03-25] MEDS: PROPOFOL 1000 MG/100 ML INJ 100 ML IV SCH (01:14)
[2017-03-25] MEDS: POTASSIUM CHLOR 20 MEQ PREMIX 100 ML IV SCH ×4 (01:14→22:05)
[2017-03-25] MEDS: MAGNESIUM SULFAT 1 GM PREMIX 100 ML x2 bags IV SCH (01:14)
[2017-03-25] MEDS: FUROSEMIDE INJ 100 MG in SODIUM CHLORIDE 0.9% INJ 90 ML IV SCH ×5 (01:15→22:32)
[2017-03-25] MEDS: HIGH DOSE INSULIN NOVOLIN REGULAR SUPPLEMENTAL SCALE SQ SCH ×6 (04:00→23:43)
[2017-03-25] MEDS: CHLORHEXIDINE GLUCONATE 2 % 1 PACK (2 CLOTHS) TOP SCH (04:00)
[2017-03-25] MEDS: RESP: ALBUTEROL 2.5 MG/IPRATROPIUM 0.5 MG NEB (SCH) NEB ×4 (04:08→19:55)
[2017-03-25] MEDS: NOREPINEPHRINE-DEXTROSE DRIP 250 ML IV SCH (04:15)
[2017-03-25] MEDS: AMPICILLIN-SULBACTAM INJ 3 GM in SODIUM CHLORIDE 0.9% INJ 100 ML IV SCH ×2 (04:16→16:23)
[2017-03-25 05:07] LABS: BICARBONATE 23.6 MEQ/L (21.0-32.0); POTASSIUM 3.7 MEQ/L (3.5-5.1)
[2017-03-25 05:11] LABS: INDIRECT BILIRUBIN 0.7 MG/DL (0.0-0.8); TOTAL BILIRUBIN ADULT 1.2 MG/DL (0.2-1.0)
[2017-03-25] MEDS: HYDROCORTISONE SOD SUCCINATE 100 MG VIAL IV PUSH SCH ×3 (05:19→20:08)
[2017-03-25] MEDS: POTASSIUM CHLOR 10 MEQ PREMIX 100 ML IV SCH ×3 (05:49→08:53)
[2017-03-25 06:45] LABS: HEMATOCRIT 24.7 % (39.0-51.0); MEAN CELL VOLUME 82.4 FL (80.0-100.0); PLATELET COUNT 90 TH/MM3 (150-450); RED CELL DISTRIBUTION WIDTH 16.2 % (11.6-17.2); WHITE BLOOD COUNT 16.7 TH/MM3 (4.0-11.0)
[2017-03-25 06:50] LABS: REVIEW FLAG FINAL
[2017-03-25] MEDS: ALBUMIN HUMAN 25% 25 GM/100 ML BAGP IV SCH ×3 (07:23→22:05)
--- NOTE | 2017-03-25 07:43 | HHI.CCPN ---
Subjective Remarks/Hospital Course Hospital Course: 67-year-old male with past medical history of primary sclerosing cholangitis with orthotopic liver transplant at [facility] in 2001, hypertension, atrial fibrillation status post ablation, hyperlipidemia, diabetes mellitus who presents to [facility] emergency department with altered mental status, fever, urinary incontinence. He was brought in by his . She states that this morning he was doing well and participated with home health physical therapy. When his returned home this evening she found him lethargic and minimally responsive. He had a cup full of mucus and when she inquired about it he stated that he had vomited. He refused ambulance transport. He had a temperature of 103 upon arrival to the emergency department. His states he told ED staff that he had experienced dysuria starting today. He has h/o BPH and UTI in the past. He has chronic low back pain. He denies headache or neck stiffness. His states he returned to his baseline mental status while in the ED and was conversant with her. He had no focal weakness and no witnessed seizure. His ED workup demonstrated U/a with moderate bacteria, 13 WBC, 2 RBC. White blood cell count was 14 with 9% bands, hemoglobin 10.5, platelets 135, AST 45, ALT 31, alkaline phosphatase 172, PT 12.3, INR 1.1 . Creatinine was 2.32 (baseline about 1.6-2), BUN 73, sodium 132 , potassium 5.2, bicarbonate 17 His initial lactic acid was 1.6. He was given Zosyn and 3 L NS bolus and admitted to the hospitalist service. He was complaining of chronic back pain and was anxious/agitated so was given Ativan 0.5 mg IV (chronically on Xanax). ED physician Dr. Orozco was called in because he became unresponsive and he was hypopneic with inadequate respirations. Sats were in the 60s. He complained to his that he could not see. He was hypotensive in 70s and post-intubation BP dropped to 60s/40s and [facility] was called. CVL was placed and he was started on levophed and vasopressin. He is awake on vent and answering questions yes/no. Subjective: 03/22: patient in refractory distributive shock. I evaluated the patient multiple times throughout the day beginning around 0600 and at frequent intervals. Patient remains acidotic on maximal vasopressor therapy. I had discussions with Dr. Anaya with ID, cultures are growing out Acinetobacter. abx changed to tobra, vanc, meropenem, levaquin, unasyn. continued ivf resuscitation throughout the day guided by frequent IVC and cardiac echo. formal echo with grossly preserved LV function and mild RV dysfunction. but IVC continued to be collapsable. acute renal failure worsening and acidosis severe. started on bicarb drip. repeat CT abd/pelvis performed. I personally transported patient down to CT scanner given how severely unstable the patient was. Discussed with general surgery and interval CT scan is necessary to eval for intra-abdominal source of sepsis. interval CT without change. most likely Acinetobacter pneumonia with overwhelming septic shock. discussed with at length multiple times today regarding his life-threatening infection and his high risk of mortality. 03/23: vasopressors weaning down. patient waking up, following commands. still persistently acidotic, in multiorgan failure. renal dysfunction persists and oliguric. acinetobacter sensitivities not resulted. 03/24: off vasopressors. clinically beginning to improve. Acinetobacter is pansensitive. oliguria persists, but Cr stable and no current indication for acute HD. 03/25: went into afib RVR yesterday. given mgso4 and started aggressive forced diuresis with lasix drip at 20mg/hr. converted spontaneously back to NSR after only about 2 hours. This AM net -2.4L/24h. continues to make 200cc/hr uop. hemodynamics stable. very low-dose norepinephrine requirement. Cr stable, though RAN persists. Objective Vital Signs Date Time Temp Pulse Resp B/P Pulse Ox O2 Delivery O2 Flow Rate FiO2 03/25/17 06:00 65 03/25/17 04:08 100 35 03/25/17 04:00 98.1 130/78 139/70 03/24/17 12:00 15 03/21/17 23:12 Ventilator 03/21/17 18:39 2 Intake and Output 03/24/17 03/24/17 03/25/17 08:00 16:00 00:00 Intake Total 375 ml 147 ml 895 ml Output Total 250 ml 350 ml 2305 ml Balance 125 ml -203 ml -1410 ml Result Diagram: 03/25/17 0615 03/25/17 0410 Other Results Microbiology Date/Time Procedure Status Source Growth 03/24/17 00:50 Stool Occult Blood (MARSHAL) - Final Complete Stool Stool HEMOCCULT NEGATIVE Objective Remarks GENERAL: Chronically ill-appearing 67-year-old male who is orotracheally intubated. SKIN: Warm and dry. HEAD: Atraumatic. Normocephalic. EYES: Pupils equal and round, 2 mm and reactive bilaterally. No scleral icterus. No injection or drainage. ENT: Mucous membranes moist NECK: Trachea midline. jvd difficult to assess due to body habitus. CARDIOVASCULAR: Distant heart sounds, Regular rate and rhythm. RESPIRATORY: PRVC. fio2 35%. equal chest rise. GASTROINTESTINAL: Abdomen soft, non-tender, nondistended. no guarding. MUSCULOSKELETAL: There is muscular atrophy of intrinsics of bilateral hands. Extremities without clubbing, cyanosis, or edema. No obvious deformities. NEUROLOGICAL: RASS -2. sedated, follows commands. A/P Assessment and Plan Assessment: 67yM s/p OLTx in 2001 now with resolving septic shock secondary to Acinetobacter bacteremia and pneumonia. Clinically starting to improve. RAN persists, and volume overload persists. responding to forced diuresis. continue this today. highly complex medical patient remains intubated, failing SBTs. still requires continued support to prevent decompensation. NEURO: Vision change Acute metabolic encephalopathy- resolving. Peripheral neuropathy Patient reported to that he could not see before intubation. ?secondary to profound hypotension and hypoperfusion. Pupils reactive, unable to assess vision currently due to intubation and clinical condition. CT brain negative. Obtaned Ammonia level -->28 EEG 03/22: severe slowing, no ictal focus. Fentanyl drip for analgosedation propofol for goal RASS -2. Hold Neurontin 300 mg by mouth 3 times a day. Hold Xanax RESP: Acute hypoxic and hypercarbic respiratory failure- persistent. History of tobacco abuse Acute healthcare associated left lower lobe pneumonia Ventilator bundle, hob @ 30 degrees, wean fio2 for spo2 > 90% Duoneb every 6 hours. Albuterol every [address] chest - dense consolidation of LLL with air bronchograms. Bronchoscopy with BAL lingula 03/22 continue daily SBTs, failing for tachypnea and resp distress. CV: Septic shock with multiorgan failure- slowly improving. History of atrial fibrillation status post ablation , 1 episode of afib yesterday. History of hypertension Hyperlipidemia Initial troponin 0.03, mild increase to 0.06 is likely related to sepsis. Echo from 01/23/17 - +LVH, EF 60-65%. No regional wall motion abnormalities. Left atrial dilation. Echo 03/22- preserved LV function, mild RV dysfunction. collapsable IVC. Hold norvasc, atorvastatin, spironolactone. GI: History of orthotopic liver transplant 2001 ([facility]) Plasma Cell hepatitis - Liver biopsy 01/08/17 "moderate activity with areas of parenchymal collapse" Pneumobilia Constipation Fecal impaction Hypoalbuminemia Mild AST elevation restart TF Patient has been followed by Dr. Mallory as outpatient. He has not been able to follow closely with [facility] due to financial reasons. states he has [facility]. She states he has been referred to [facility] for possible repeat transplant due to plasma cell hepatitis but has not had followup appointment yet. prograf level 5-->7-->7.7. decreased prograf to 1mg daily 03/24. f/u daily prograf. CT abd/pelvis non-contrast - pneumobilia, fecal impaction, no free air or fluid. repeat serial CT abd pelvis: no change. Consult GI, patient known to Dr. Mallory. UROLOGY: BPH Hold finasteride and tamsulosin FEN/RENAL: RAN- severe, persistent. Hypokalemia Hypomagnesemia Lactic Acidosis- resolved. Anion-gap metabolic acidosis- improving. Intravascular volume overload Mcpherson in place. Monitor intake and output. Monitor electrolytes. forced diuresis with lasix drip at 20 mg/hr. continue today. goal net -2L/24h. add concentrated albumin infusion today. ID: Septic shock- resolving. LLL HCAP- Acinetobacter UTI Pneumobilia Leukocytosis Bandemia Continue Unasyn and Levaquin. ID consult: Dr. Anaya. HEME: Chronic anemia Thrombocytopenia Monitor CBC. ENDO: Diabetes mellitus Monitor Glucose every 4 hours. Medium dose sliding scale as indicated. PROPH: SCDs. Hold pharmacologic DVT prophylaxis as patient already has mild thrombocytopenia which may worsen, and may need further procedures/OR. Protonix 40 mg IV daily for stress ulcer prophylaxis. ACCESS: Left subclavian central venous line placed 03/21 #5. R radial art line 03/21 #5. updated at bedside. Full code Juan R Randle MD Mar 25, 2017 07:43
--- NOTE | 2017-03-25 08:39 | EKG ---
Date Performed: 03/24/2017 Time Performed: 17:24:16 PTAGE: 67 years EKG: Atrial fibrillation with rapid ventricular response Left axis deviation Inferior infarct - age undetermined Possible anterior infarct - age undetermined Lateral ST-T changes may be due to myoc ardial ischemia Abnormal ECG NO PREVIOUS TRACING DOCTOR: Vik Jaeger Interpretating Date/Time 03/25/2017 08:38:17
[2017-03-25] MEDS: PANTOPRAZOLE SODIUM 40 MG VIAL IV SCH ×2 (08:53→20:08)
[2017-03-25] MEDS: SODIUM CHLORIDE 0.9% FLUSH 10 ML FLUSH IV FLUSH SCH ×2 (08:53→21:00)
[2017-03-25] MEDS: FOLIC ACID 1 MG TAB PO SCH ×2 (08:54→20:08)
[2017-03-25] MEDS: CHOLECALCIFEROL (VIT D3) 1000 UNIT TAB PO SCH ×2 (08:54→20:08)
[2017-03-25] MEDS: LACTULOSE SYRUP 20 GM/30 ML CUP PO SCH ×2 (08:54→20:07)
[2017-03-25] MEDS: TACROLIMUS 1 MG CAP PO SCH (08:54)
[2017-03-25] MEDS: RIFAXIMIN 550 MG TAB OG-TUBE SCH ×2 (08:54→20:08)
[2017-03-25] MEDS: DOCUSATE SODIUM 50 MG/SENNA 8.6 MG TAB PO SCH ×2 (08:54→20:08)
[2017-03-25 10:20] LABS: BICARBONATE 25.6 MEQ/L (21.0-32.0); POTASSIUM 3.6 MEQ/L (3.5-5.1)
--- NOTE | 2017-03-25 10:28 | HHI.GIFU ---
Subjective Remarks Resting in bed. Sedated on vent. On vasopressors. Started on furosemide gtt. Objective Vitals I&O Vital Signs Date Time Temp Pulse Resp B/P Pulse Ox O2 Delivery O2 Flow Rate FiO2 03/25/17 10:00 60 03/25/17 09:00 61 90/55 108/66 03/25/17 09:00 61 15 90/55 100 108/66 03/25/17 08:25 100 35 03/25/17 08:00 97.6 65 15 156/84 100 03/25/17 08:00 35 03/25/17 08:00 65 03/25/17 06:00 65 03/25/17 04:08 100 35 03/25/17 04:00 98.1 62 130/78 100 139/70 03/25/17 04:00 62 03/25/17 04:00 62 130/78 139/70 03/25/17 04:00 35 03/25/17 02:00 65 03/25/17 01:41 100 35 03/25/17 00:00 98.4 66 123/73 100 135/67 03/25/17 00:00 35 03/25/17 00:00 66 123/73 135/67 03/25/17 00:00 66 03/24/17 22:32 100 35 03/24/17 22:00 65 03/24/17 20:24 100 35 03/24/17 20:00 35 03/24/17 20:00 70 03/24/17 20:00 84 124/74 135/68 03/24/17 20:00 97.9 70 124/74 100 135/68 03/24/17 19:00 78 03/24/17 18:07 83 115/67 100 141/70 03/24/17 18:00 144 03/24/17 17:00 141 110/70 100 109/63 03/24/17 16:39 139 106/76 95 116/65 03/24/17 16:30 140 93/61 97 91/58 03/24/17 16:03 136 142/77 98 121/73 03/24/17 16:00 84 03/24/17 16:00 84 162/93 169/82 03/24/17 16:00 35 03/24/17 16:00 97.6 84 162/93 99 169/82 03/24/17 15:22 100 35 03/24/17 15:00 80 162/93 100 159/81 03/24/17 14:00 75 156/90 100 160/83 03/24/17 14:00 75 03/24/17 13:00 67 102/67 100 111/63 03/24/17 12:00 35 03/24/17 12:00 96.7 68 15 114/74 100 128/67 03/24/17 12:00 68 03/24/17 12:00 67 114/74 128/67 03/24/17 11:19 100 35 03/24/17 11:00 68 15 103/67 100 119/63 I/O 03/24/17 03/24/17 03/24/17 03/25/17 03/25/17 03/25/17 07:00 15:00 23:00 07:00 15:00 23:00 Intake Total 375 ml 147 ml 777 ml 1105 ml 357 ml Output Total 250 ml 350 ml 2055 ml 2045 ml 660 ml Balance 125 ml -203 ml -1278 ml -940 ml -303 ml Intake IV Total 315 ml 87 ml 777 ml 1105 ml 357 ml Tube Irrigant 60 ml Other 60 ml Output Urine Total 250 ml 350 ml 2055 ml 1975 ml 660 ml Gastric Drainage Total 0 ml 70 ml # Bowel Movements 1 1 Laboratory Laboratory Tests Test 03/24/17 03/24/17 03/24/17 03/25/17 15:45 16:30 21:51 04:10 Urine Eosinophils NONE SEEN Sodium Level 136 135 136 Potassium Level 3.8 3.6 3.7 Chloride Level 99 99 98 Carbon Dioxide Level 26.2 26.9 23.6 Anion Gap 11 9 14 Blood Urea Nitrogen 74 79 78 Creatinine 2.53 2.54 2.45 Estimat Glomerular Filtration 26 25 27 Rate Random Glucose 175 200 206 Calcium Level 7.8 7.8 8.1 Phosphorus Level 4.4 4.7 Magnesium Level 1.4 1.7 2.0 Total Bilirubin 1.2 Direct Bilirubin 0.5 Indirect Bilirubin 0.7 Aspartate Amino Transf 17 (AST/SGOT) Alanine Aminotransferase 16 (ALT/SGPT) Alkaline Phosphatase 124 Total Protein 6.4 Albumin 2.0 Random Vancomycin Level 19.5 Test 03/25/17 06:15 White Blood Count 16.7 Red Blood Count 3.00 Hemoglobin 8.4 Hematocrit 24.7 Mean Corpuscular Volume 82.4 Mean Corpuscular Hemoglobin 28.0 Mean Corpuscular Hemoglobin 34.0 Concent Red Cell Distribution Width 16.2 Platelet Count 90 Mean Platelet Volume 9.1 Date/Time Procedure Status Source Growth 03/24/17 00:50 Stool Occult Blood (MARSHAL) - Final Complete Stool Stool HEMOCCULT NEGATIVE 03/23/17 01:10 Gram Stain - Final Complete Sputum Endotracheal 03/23/17 01:10 Sputum Culture - Final Complete Sputum Endotracheal RARE GROWTH NORMAL RESPIRATORY MIKHAIL 03/22/17 06:05 Fungal Smear - Final Resulted Bronchial Washings Other NO FUNGAL ELEMENTS SEEN. 03/22/17 06:05 Fungal Culture Resulted Bronchial Washings Other Pending 03/22/17 06:05 Acid Fast Stain - Final Resulted Bronchial Washings Other NO ACID FAST BACILLI SEEN 03/22/17 06:05 Mycobacterial Culture Resulted Bronchial Washings Other Pending 03/21/17 18:30 Urine Culture - Final Complete Urine Catheterized Urine NO GROWTH IN 48 HOURS. 03/21/17 18:30 Legionella Antigen - Final Complete Urine Catheterized Urine PRESUMPTIVE NEGATIVE FOR LEGIONELLA P... 03/21/17 18:30 Streptococcus pneumoniae Antigen (M - Final Complete Urine Catheterized Urine PRESUMPTIVE NEGATIVE FOR STREPTOCOCCU... 03/21/17 18:10 Aerobic Blood Culture - Preliminary Resulted Blood Peripheral NO GROWTH IN 3 DAYS 03/21/17 18:10 Anaerobic Blood Culture - Preliminary Resulted Blood Peripheral NO GROWTH IN 3 DAYS 03/21/17 18:08 Aerobic Blood Culture - Final Resulted Blood Peripheral Acinetobacter Baumannii/Haemol 03/21/17 18:08 Anaerobic Blood Culture - Preliminary Resulted Blood Peripheral NO GROWTH IN 3 DAYS Imaging Last Impressions Abdomen Ultrasound 03/22/172122 Signed Impressions: Service Date/Time: Wednesday, March 22, 2017 08:14 - CONCLUSION: 1. Mild diffusely heterogeneous transplant liver echotexture with small amount of volume loss. No definitive evidence for portal venous gas or significant pneumobilia by ultrasound exam. However, examination was not specifically tailored for extended interrogation of the hepatic vasculature. 2. No sonographic evidence for intra-or extrahepatic ductal dilatation. 3. Trace ascites and small bilateral pleural effusions. Everton Cruz MD Chest X-Ray 03/22/17 0000 Signed Impressions: Service Date/Time: Wednesday, March 22, 2017 02:37 - CONCLUSION: Infiltrate in the left lung inferiorly. Left subclavian Central line in good position. Tubes and catheter is in good position. Valerio Jerome MD Chest CT 03/22/17 0000 Signed Impressions: Service Date/Time: Wednesday, March 22, 2017 15:37 - CONCLUSION: There is ascites and bilateral pleural effusion and worsening left lung consolidation. Indu Cunningham MD Abdomen/Pelvis CT 03/22/17 0000 Signed Impressions: Service Date/Time: Wednesday, March 22, 2017 15:40 - CONCLUSION: Increase in ascites and mesenteric congestion since the prior exam. Indu Cunningham MD Abdomen X-Ray 03/22/17 0000 Signed Impressions: Service Date/Time: Wednesday, March 22, 2017 07:00 - CONCLUSION: No findings characteristic of perforation. Nasogastric tube coiled within the fundus of the stomach. Emilio Snow MD Head CT 03/21/17 0000 Signed Impressions: Service Date/Time: Tuesday, March 21, 2017 23:27 - CONCLUSION: Normal examination. Valerio Jerome MD Physical Exam HEENT: Normocephalic; atraumatic CHEST: CTA, diminished, OETT to vent. CARDIAC: SB ABDOMEN: Soft, nondistended, nontender; hepatosplenomegaly; bowel sounds are present in all four quadrants. EXTREMITIES: Generalized edema. 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 He has not been seen at the [facility] and 5-10 years secondary to financial issues. Unfortunately, he cannot make an appointment to follow up at [facility] until he makes a payment of $8,000 for an outstanding balance. The tells me charles there is no way she can make this payment and that she will have to "deal with that later." [facility] but patient was declined secondary to having his transplant done at [facility] and they said that he would need to follow up at [facility]. 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 Similar histologic findings can also be seen in plasma cell rich rejection. Correlation with recent BILLY, ASMA, and serum IgG level is recommended. Typical features of acute cellular rejection are not seen. There is no evidence of chronic biliary tract disease or active steatohepatitis. Labs from January 28, 2017 revealed IgG total 3887, IgG1 2359, IgG3 57, IgG4 > 300.00. BILLY negative, ASMA negative. T. Bili 1.2, AST 17, ALT 16, ALk Phosph 124. Prograf level 5.2. On Solucortef, Prograf. MELD 16. Called placed to Tiana Lo at [facility] to update on patient's condition and to see if he would able to be seen at their facility ([facility] has declined patient per our outpatient referral records). Per Tiana Lo, patient will not be able to be seen or make recommendations at [facility] until they have contacted Central Appointment Scheduling and settles outstanding balance. They cannot make recommendations, as they have not seen this patient since 2007 and would need to start the whole process over again and cannot do this until the outstanding balance is settled. - Constipation, Fecal impaction. Abdomen/Pelvis CT (03/21/17)-----> Moderate stool throughout the colon. Small moderate of the bell hepatis I believe is biliary air. Other solid organs are unremarkable. Dense infiltrate left lower lobe within the lung. (+) BM. Lactulose with BID dosing. - Anemia with drop in Hgb. No obvious active bleeding. Hemoccult neg. H/H 8.4/ 24.7. Will increase protonix to BID dosing. - Coagulopathy. PT 18.1, INR 1.6. - Sepsis with multisystem failure. Pt with bandemia, UTI/PNA. Bronchial washings pending, urine negative for legionella and streptococcus, urine cx (-) , bcx no growth Acinetobacter Baumannii/Haemol, Levaquin, Ampicillicin. On Levophed. CT as above. - Resp. Failure, HCAP. Abx, Nebs. Vent per CCM. - RAN with electrolyte abnormalities. Worsening, Creat 2.45. - AMS. Ammonia 28. EEG with diffusely low recording, could be medication effect as the patient was on fentanyl. No hemisphere asymmetries are noted. No epileptiform or seizure activity seen. - Hx HTN, hyperlipidemia, BPH, per attending. PLAN: - Nepro 40cc/hr - Cont. Prograf - Cont. Albumin - On Lasix Gtt per CCM - Cont. Lactulose - Cont. Xifaxan - Cont. PPI - Cont. Abx per ID recommendations - Monitor CBC, CMP, PT/INR in am - Supportive care - CCM following - ID following - Further recommendations to follow based on results of above - Of note, patient has been declined by [facility] secondary to having original transplant at [facility] - [facility] will not see patient until they have resolved outstanding balance ($8,000 ), states that she is unable to do this- Call placed to Tiana oL at [facility] to update on condition and to see if they would consider seeing patient given his condition. Per Tiana Lo, they pt has not been seen since and therefore they cannot really make recommendations either until patient is reestablished and they cannot see patient for reestablishment until he settles outstanding balance. - Pt seen and examined by Dr. Tate and myself and this note is written on his behalf Kenisha Lopez Mar 25, 2017 10:28
[2017-03-25] MEDS ORDERED: POTASSIUM CHLOR 20 MEQ PREMIX 100 ML IV SCH (11:00)
[2017-03-25] MEDS ORDERED: DILTIAZEM HCL 25 MG/5 ML VIAL IV PUSH ONE (11:45)
[2017-03-25] MEDS ORDERED: POTASSIUM CHLOR 40 MEQ PREMIX 100 ML IV ONE (12:00)
--- NOTE | 2017-03-25 14:43 | HHI.IDPN ---
Subjective Subjective Remarks sedated no fever on/off levaphed appraently had Afib with RVR not much secretions renal fnx not improving but UOP is good no eosinophils Antibiotics Amp/S leva Allergies: Coded Allergies: *MDRO Multi-Drug Resistant Organism (Verified Adverse Reaction, Unknown, ) MRSA (heel wound) - 07/23/16 MRSA PCR Screen POSITIVE-03/22/17 Objective . Vital Signs Date Time Temp Pulse Resp B/P Pulse Ox O2 Delivery O2 Flow Rate FiO2 03/25/17 14:00 60 03/25/17 14:00 58 15 96/63 100 106/58 03/25/17 13:16 100 35 03/25/17 13:00 61 15 128/76 100 138/70 03/25/17 12:01 96.7 119 17 107/71 100 116/72 03/25/17 12:00 119 03/25/17 12:00 118 107/71 116/72 03/25/17 12:00 35 03/25/17 11:00 73 15 156/89 100 158/79 03/25/17 10:40 99 35 03/25/17 10:00 60 15 112/66 99 128/69 03/25/17 10:00 60 03/25/17 09:00 61 90/55 108/66 03/25/17 09:00 61 15 90/55 100 108/66 03/25/17 08:25 100 35 03/25/17 08:00 97.6 65 15 156/84 100 03/25/17 08:00 35 03/25/17 08:00 65 03/25/17 06:00 65 03/25/17 04:08 100 35 03/25/17 04:00 98.1 62 130/78 100 139/70 03/25/17 04:00 62 03/25/17 04:00 62 130/78 139/70 03/25/17 04:00 35 03/25/17 02:00 65 03/25/17 01:41 100 35 03/25/17 00:00 98.4 66 123/73 100 135/67 03/25/17 00:00 35 03/25/17 00:00 66 123/73 135/67 03/25/17 00:00 66 03/24/17 22:32 100 35 03/24/17 22:00 65 03/24/17 20:24 100 35 03/24/17 20:00 35 03/24/17 20:00 70 03/24/17 20:00 84 124/74 135/68 03/24/17 20:00 97.9 70 124/74 100 135/68 03/24/17 19:00 78 03/24/17 18:07 83 115/67 100 141/70 03/24/17 18:00 144 03/24/17 17:00 141 110/70 100 109/63 03/24/17 16:39 139 106/76 95 116/65 03/24/17 16:30 140 93/61 97 91/58 03/24/17 16:03 136 142/77 98 121/73 03/24/17 16:00 84 03/24/17 16:00 84 162/93 169/82 03/24/17 16:00 35 03/24/17 16:00 97.6 84 162/93 99 169/82 03/24/17 15:22 100 35 03/24/17 15:00 80 162/93 100 159/81 03/24/17 03/24/17 03/25/17 15:00 23:00 07:00 Intake Total 147 ml 777 ml 1105 ml Output Total 350 ml 2055 ml 2045 ml Balance -203 ml -1278 ml -940 ml Intake IV Total 87 ml 777 ml 1105 ml Tube Irrigant 60 ml Output Urine Total 350 ml 2055 ml 1975 ml Gastric Drainage Total 0 ml 70 ml # Bowel Movements 1 . Laboratory Tests Test 03/24/17 03/25/17 04:00 06:15 White Blood Count 8.8 TH/MM3 16.7 TH/MM3 Red Blood Count 2.76 MIL/MM3 3.00 MIL/MM3 Hemoglobin 7.7 GM/DL 8.4 GM/DL Hematocrit 22.8 % 24.7 % Mean Corpuscular Volume 82.7 FL 82.4 FL Mean Corpuscular Hemoglobin 27.9 PG 28.0 PG Mean Corpuscular Hemoglobin 33.7 % 34.0 % Concent Red Cell Distribution Width 16.2 % 16.2 % Platelet Count 63 TH/MM3 90 TH/MM3 Mean Platelet Volume 9.0 FL 9.1 FL Laboratory Tests Test 03/24/17 03/24/17 03/24/1717 04:00 16:30 21:51 04:10 Sodium Level 137 MEQ/L 136 MEQ/L 135 MEQ/L 136 MEQ/L Potassium Level 4.2 MEQ/L 3.8 MEQ/L 3.6 MEQ/L 3.7 MEQ/L Chloride Level 99 MEQ/L 99 MEQ/L 99 MEQ/L 98 MEQ/L Carbon Dioxide Level 25.8 MEQ/L 26.2 MEQ/L 26.9 MEQ/L 23.6 MEQ/L Anion Gap 12 MEQ/L 11 MEQ/L 9 MEQ/L 14 MEQ/L Blood Urea Nitrogen 69 MG/DL 74 MG/DL 79 MG/DL 78 MG/DL Creatinine 2.49 MG/DL 2.53 MG/DL 2.54 MG/DL 2.45 MG/DL Estimat Glomerular Filtration 26 ML/MIN 26 ML/MIN 25 ML/MIN 27 ML/MIN Rate Random Glucose 160 MG/DL 175 MG/DL 200 MG/DL 206 MG/DL Calcium Level 7.6 MG/DL 7.8 MG/DL 7.8 MG/DL 8.1 MG/DL Total Bilirubin 1.5 MG/DL 1.2 MG/DL Direct Bilirubin 0.6 MG/DL 0.5 MG/DL Indirect Bilirubin 0.9 MG/DL 0.7 MG/DL Aspartate Amino Transf 26 U/L 17 U/L (AST/SGOT) Alanine Aminotransferase 19 U/L 16 U/L (ALT/SGPT) Alkaline Phosphatase 78 U/L 124 U/L Total Protein 6.2 GM/DL 6.4 GM/DL Albumin 2.2 GM/DL 2.0 GM/DL Phosphorus Level 4.4 MG/DL 4.7 MG/DL Magnesium Level 1.4 MG/DL 1.7 MG/DL 2.0 MG/DL Test 03/25/17 09:45 Sodium Level 135 MEQ/L Potassium Level 3.6 MEQ/L Chloride Level 99 MEQ/L Carbon Dioxide Level 25.6 MEQ/L Anion Gap 10 MEQ/L Blood Urea Nitrogen 82 MG/DL Creatinine 2.48 MG/DL Estimat Glomerular Filtration 26 ML/MIN Rate Random Glucose 186 MG/DL Calcium Level 8.2 MG/DL Magnesium Level 2.0 MG/DL Microbiology Date/Time Procedure Status Source Growth 03/23/17 01:10 Gram Stain - Final Complete Sputum Endotracheal 03/23/17 01:10 Sputum Culture - Final Complete Sputum Endotracheal RARE GROWTH NORMAL RESPIRATORY MIKHAIL 03/24/17 00:50 Stool Occult Blood (MARSHAL) - Final Complete Stool Stool HEMOCCULT NEGATIVE Imaging Last Impressions Abdomen Ultrasound 03/22/172122 Signed Impressions: Service Date/Time: Wednesday, March 22, 2017 08:14 - CONCLUSION: 1. Mild diffusely heterogeneous transplant liver echotexture with small amount of volume loss. No definitive evidence for portal venous gas or significant pneumobilia by ultrasound exam. However, examination was not specifically tailored for extended interrogation of the hepatic vasculature. 2. No sonographic evidence for intra-or extrahepatic ductal dilatation. 3. Trace ascites and small bilateral pleural effusions. Everton Cruz MD Chest X-Ray 03/22/17 Signed Impressions: Service Date/Time: Wednesday, March 22, 2017 02:37 - CONCLUSION: Infiltrate in the left lung inferiorly. Left subclavian Central line in good position. Tubes and catheter is in good position. Valerio Jerome MD Chest CT 03/22/17 0000 Signed Impressions: Service Date/Time: Wednesday, March 22, 2017 15:37 - CONCLUSION: There is ascites and bilateral pleural effusion and worsening left lung consolidation. Indu Cunningham MD Abdomen/Pelvis CT 03/22/17 0000 Signed Impressions: Service Date/Time: Wednesday, March 22, 2017 15:40 - CONCLUSION: Increase in ascites and mesenteric congestion since the prior exam. Indu Cunningham MD Abdomen X-Ray 03/22/17 Signed Impressions: Service Date/Time: Wednesday, March 22, 2017 07:00 - CONCLUSION: No findings characteristic of perforation. Nasogastric tube coiled within the fundus of the stomach. Emilio Snow MD Head CT 03/21/17 0000 Signed Impressions: Service Date/Time: Tuesday, March 21, 2017 23:27 - CONCLUSION: Normal examination. Valerio Jerome MD Physical Exam CONSTITUTIONAL/GENERAL: This is an adequately nourished patient, in no apparent distress. TUBES/LINES/DRAINS: SKIN: + mild jaundice, rashes, or lesions. Skin temperature appropriate.Non diaphoretic. EYES: Pupils reactive . + minimal scleral icterus. No injection or drainage. Fundi not examined. NECK: Trachea midline. CARDIOVASCULAR: Regular rate and rhythm without murmurs, gallops, or rubs. No JVD. Periphery is poorly perfused RESPIRATORY/CHEST: Symmetric, respirations. Clear to auscultation. Breath sounds equal bilaterally. No wheezes, rales, or rhonchi. GASTROINTESTINAL: Abdomen soft, no reaction to palpation, + mildly-to- moderately distended. No hepato-splenomegaly, or palpable masses. No guarding. Bowel sounds present. GENITOURINARY: Without palpable bladder distension. Mcpherson catheter in place with clear yellow urine MUSCULOSKELETAL: Extremities without clubbing, + increasing edema no cyanosis . No mottling or clubbing. NEUROLOGICAL: sedated PSYCHIATRIC: Unable to assess Assessment & Plan Remarks Sepsis, septic shock, Acinetobacter chávez S clinically improved Source is likley bacteremiic gram negative PNA 2/2 Acinetobacter : though no growth on clx, Gstain was with GNBs LLL PNA , gram negative ? acinetobacter Acinetobacter bacteremia Acute VDRF ARF on CKD: no e/o interst nephritis Immunosuppressed, sp liver transplant Critically ill, stable Worsening leukocytosis REC's:cont Amp/sulbactam, levaquine other option cefepime, fortaz; will avoid Rocephin in liver transplant pt 2 /2 cholestatic risks fu WBC dw RN dw Celestina Yoder MD Mar 25, 2017 14:43
[2017-03-25] MEDS: DILTIAZEM HCL 30 MG TAB PO SCH ×3 (15:12→23:43)
[2017-03-25] MEDS ORDERED: DILTIAZEM HCL 25 MG/5 ML VIAL IV ONE (15:15)
[2017-03-25] MEDS: DILTIAZEM INJ 125 MG in SODIUM CHLORIDE 0.9% INJ 100 ML IV SCH ×2 (16:22→23:42)
[2017-03-25 17:35] LABS: POTASSIUM 3.4 MEQ/L (3.5-5.1)
[2017-03-25] MEDS: CHLORHEXIDINE 0.12% (ORAL KIT) 15 ML CUP MT SCH (22:05)
[2017-03-25 22:59] LABS: BICARBONATE 27.1 MEQ/L (21.0-32.0); MAGNESIUM 1.9 MG/DL (1.5-2.5); POTASSIUM 3.7 MEQ/L (3.5-5.1)
[2017-03-26] VITALS (20 sets, daily range): BP systolic 101–142; BP diastolic 63–76; PULSE 54–123; RESP 15; TEMP 97–98.5; O2SAT 100
[2017-03-26] MEDS: MAGNESIUM SULFATE 1 GM PREMIX 100 ML IV SCH ×2 (00:18→01:33)
[2017-03-26] MEDS: NOREPINEPHRINE-DEXTROSE DRIP 250 ML IV SCH ×2 (01:48→15:45)
[2017-03-26] MEDS: fentaNYL DRIP 250 ML IV SCH ×2 (01:48→11:57)
[2017-03-26] MEDS: RESP: ALBUTEROL 2.5 MG/IPRATROPIUM 0.5 MG NEB (SCH) NEB ×2 (02:48→08:38)
[2017-03-26] MEDS: CHLORHEXIDINE GLUCONATE 2 % 1 PACK (2 CLOTHS) TOP SCH (03:30)
[2017-03-26] MEDS: HIGH DOSE INSULIN NOVOLIN REGULAR SUPPLEMENTAL SCALE SQ SCH ×5 (04:00→20:00)
[2017-03-26] MEDS: FUROSEMIDE INJ 100 MG in SODIUM CHLORIDE 0.9% INJ 90 ML IV SCH ×2 (04:28→09:06)
[2017-03-26] MEDS: AMPICILLIN-SULBACTAM INJ 3 GM in SODIUM CHLORIDE 0.9% INJ 100 ML IV SCH ×2 (04:29→17:48)
[2017-03-26] MEDS: PROPOFOL 1000 MG/100 ML INJ 100 ML IV SCH ×2 (04:58→14:37)
[2017-03-26] MEDS: LEVOFLOXACIN 750 MG PREMIX INJ 150 ML IV SCH (04:58)
[2017-03-26] MEDS: HYDROCORTISONE SOD SUCCINATE 100 MG VIAL IV PUSH SCH ×3 (04:58→20:25)
[2017-03-26] MEDS: DILTIAZEM HCL 30 MG TAB PO SCH ×3 (04:58→17:48)
[2017-03-26 05:30] LABS: HEMATOCRIT 26.2 % (39.0-51.0); MEAN CELL VOLUME 83.5 FL (80.0-100.0); MEAN CORPUSCULAR HEMOGLOBIN 27.8 PG (27.0-34.0); MEAN CORPUSCULAR HGB CONC 33.2 % (32.0-36.0); PLATELET COUNT 101 TH/MM3 (150-450); RED BLOOD COUNT 3.14 MIL/MM3 (4.50-5.90); RED CELL DISTRIBUTION WIDTH 16.6 % (11.6-17.2); REVIEW FLAG FINAL
[2017-03-26 05:56] LABS: BICARBONATE 25.7 MEQ/L (21.0-32.0); MAGNESIUM 2.3 MG/DL (1.5-2.5); POTASSIUM 3.7 MEQ/L (3.5-5.1)
[2017-03-26 06:17] LABS: INDIRECT BILIRUBIN 0.8 MG/DL (0.0-0.8); TOTAL BILIRUBIN ADULT 1.3 MG/DL (0.2-1.0)
[2017-03-26] MEDS: POTASSIUM CHLOR 10 MEQ PREMIX 100 ML IV SCH ×3 (06:45→09:05)
[2017-03-26] MEDS: CHLORHEXIDINE 0.12% (ORAL KIT) 15 ML CUP MT SCH ×2 (08:00→20:26)
[2017-03-26] MEDS: RIFAXIMIN 550 MG TAB OG-TUBE SCH ×2 (09:06→20:25)
[2017-03-26] MEDS: TACROLIMUS 1 MG CAP PO SCH (09:06)
[2017-03-26] MEDS: DILTIAZEM INJ 125 MG in SODIUM CHLORIDE 0.9% INJ 100 ML IV SCH ×2 (09:06→17:55)
[2017-03-26] MEDS: CHOLECALCIFEROL (VIT D3) 1000 UNIT TAB PO SCH ×2 (09:06→20:25)
[2017-03-26] MEDS: FOLIC ACID 1 MG TAB PO SCH ×2 (09:06→20:25)
[2017-03-26] MEDS: LACTULOSE SYRUP 20 GM/30 ML CUP PO SCH ×2 (09:06→20:25)
[2017-03-26] MEDS: PANTOPRAZOLE SODIUM 40 MG VIAL IV SCH ×2 (09:07→20:25)
[2017-03-26] MEDS: DOCUSATE SODIUM 50 MG/SENNA 8.6 MG TAB PO SCH ×2 (09:07→20:25)
[2017-03-26] MEDS: SODIUM CHLORIDE 0.9% FLUSH 10 ML FLUSH IV FLUSH SCH ×2 (09:07→20:28)
[2017-03-26 10:10] LABS: BICARBONATE 25.5 MEQ/L (21.0-32.0); MAGNESIUM 2.3 MG/DL (1.5-2.5); POTASSIUM 3.8 MEQ/L (3.5-5.1)
[2017-03-26] MEDS ORDERED: POTASSIUM CHLOR 20 MEQ PREMIX 100 ML IV ONE ×2 (10:45→19:00)
--- NOTE | 2017-03-26 12:50 | HHI.CCPN ---
Subjective Remarks/Hospital Course Hospital Course: 67-year-old male with past medical history of primary sclerosing cholangitis with orthotopic liver transplant at [facility] in 2001, hypertension, atrial fibrillation status post ablation, hyperlipidemia, diabetes mellitus who presents to [facility] emergency department with altered mental status, fever, urinary incontinence. He was brought in by his . She states that this morning he was doing well and participated with home health physical therapy. When his returned home this evening she found him lethargic and minimally responsive. He had a cup full of mucus and when she inquired about it he stated that he had vomited. He refused ambulance transport. He had a temperature of 103 upon arrival to the emergency department. His states he told ED staff that he had experienced dysuria starting today. He has h/o BPH and UTI in the past. He has chronic low back pain. He denies headache or neck stiffness. His states he returned to his baseline mental status while in the ED and was conversant with her. He had no focal weakness and no witnessed seizure. His ED workup demonstrated U/a with moderate bacteria, 13 WBC, 2 RBC. White blood cell count was 14 with 9% bands, hemoglobin 10.5, platelets 135, AST 45, ALT 31, alkaline phosphatase 172, PT 12.3, INR 1.1 . Creatinine was 2.32 (baseline about 1.6-2), BUN 73, sodium 132 , potassium 5.2, bicarbonate 17 His initial lactic acid was 1.6. He was given Zosyn and 3 L NS bolus and admitted to the hospitalist service. He was complaining of chronic back pain and was anxious/agitated so was given Ativan 0.5 mg IV (chronically on Xanax). ED physician Dr. Orozco was called in because he became unresponsive and he was hypopneic with inadequate respirations. Sats were in the 60s. He complained to his that he could not see. He was hypotensive in 70s and post-intubation BP dropped to 60s/40s and [facility] was called. CVL was placed and he was started on levophed and vasopressin. He is awake on vent and answering questions yes/no. Subjective: 03/22: patient in refractory distributive shock. I evaluated the patient multiple times throughout the day beginning around 0600 and at frequent intervals. Patient remains acidotic on maximal vasopressor therapy. I had discussions with Dr. Anaya with ID, cultures are growing out Acinetobacter. abx changed to tobra, vanc, meropenem, levaquin, unasyn. continued ivf resuscitation throughout the day guided by frequent IVC and cardiac echo. formal echo with grossly preserved LV function and mild RV dysfunction. but IVC continued to be collapsable. acute renal failure worsening and acidosis severe. started on bicarb drip. repeat CT abd/pelvis performed. I personally transported patient down to CT scanner given how severely unstable the patient was. Discussed with general surgery and interval CT scan is necessary to eval for intra-abdominal source of sepsis. interval CT without change. most likely Acinetobacter pneumonia with overwhelming septic shock. discussed with at length multiple times today regarding his life-threatening infection and his high risk of mortality. 03/23: vasopressors weaning down. patient waking up, following commands. still persistently acidotic, in multiorgan failure. renal dysfunction persists and oliguric. acinetobacter sensitivities not resulted. 03/24: off vasopressors. clinically beginning to improve. Acinetobacter is pansensitive. oliguria persists, but Cr stable and no current indication for acute HD. 03/25: went into afib RVR yesterday. given mgso4 and started aggressive forced diuresis with lasix drip at 20mg/hr. converted spontaneously back to NSR after only about 2 hours. This AM net -2.4L/24h. continues to make 200cc/hr uop. hemodynamics stable. very low-dose norepinephrine requirement. Cr stable, though RAN persists. 03/26: remains in afib, intermittently RVR. on diltiazem drip. Cr worse. uop declining. appears intravascularly dry. stopped lasix drip. wbc uptrending, but still appears nontoxic. Objective Vital Signs Date Time Temp Pulse Resp B/P Pulse Ox O2 Delivery O2 Flow Rate FiO2 03/26/17 12:00 54 03/26/17 12:00 97.2 15 105/64 100 128/65 03/26/17 12:00 35 Intake and Output 03/25/17 03/25/17 03/25/17 07:59 15:59 23:59 Intake Total 1105 ml 892 ml 1143 ml Output Total 2045 ml 1595 ml 1062 ml Balance -940 ml -703 ml 81 ml Result Diagram: 03/26/17 0407 03/26/17 0900 Other Results Microbiology Date/Time Procedure Status Source Growth 03/24/17 00:50 Stool Occult Blood (MARSHAL) - Final Complete Stool Stool HEMOCCULT NEGATIVE Objective Remarks GENERAL: Chronically ill-appearing 67-year-old male who is orotracheally intubated. SKIN: Warm and dry. HEAD: Atraumatic. Normocephalic. EYES: Pupils equal and round, 2 mm and reactive bilaterally. No scleral icterus. No injection or drainage. ENT: Mucous membranes moist NECK: Trachea midline. jvd difficult to assess due to body habitus. CARDIOVASCULAR: Distant heart sounds, tachycardic rate, irregularly irregular rhythm RESPIRATORY: PRVC. fio2 35%. equal chest rise. GASTROINTESTINAL: Abdomen soft, non-tender, nondistended. no guarding. MUSCULOSKELETAL: There is muscular atrophy of intrinsics of bilateral hands. Extremities without clubbing, cyanosis, or edema. No obvious deformities. NEUROLOGICAL: RASS -2. sedated, follows commands. A/P Assessment and Plan Assessment: 67yM s/p OLTx in 2001 now with resolving septic shock secondary to Acinetobacter bacteremia and pneumonia. RAN persists. stop force diuresis. add additional 25% albumin to mobilize intravascular volume. continue abx. if afib does not convert, would pursue cardioversion. vasopressors persist as well. highly complex medical patient remains intubated, failing SBTs. still requires continued support to prevent decompensation. NEURO: Vision change Acute metabolic encephalopathy- resolving. Peripheral neuropathy Patient reported to that he could not see before intubation. ?secondary to profound hypotension and hypoperfusion. Pupils reactive, unable to assess vision currently due to intubation and clinical condition. CT brain negative. Obtaned Ammonia level -->28 EEG 03/22: severe slowing, no ictal focus. Fentanyl drip for analgosedation propofol for goal RASS -2. Hold Neurontin 300 mg by mouth 3 times a day. Hold Xanax RESP: Acute hypoxic and hypercarbic respiratory failure- persistent. History of tobacco abuse Acute healthcare associated left lower lobe pneumonia Ventilator bundle, hob @ 30 degrees, wean fio2 for spo2 > 90% Duoneb every 6 hours. Albuterol every [address] chest - dense consolidation of LLL with air bronchograms. Bronchoscopy with BAL lingula 03/22 continue daily SBTs, failing for tachypnea and resp distress. CV: Septic shock with multiorgan failure- persistent vasopressor requirement. History of atrial fibrillation status post ablation , back in afib today. History of hypertension Hyperlipidemia Initial troponin 0.03, mild increase to 0.06 is likely related to sepsis. Echo from 01/23/17 - +LVH, EF 60-65%. No regional wall motion abnormalities. Left atrial dilation. Echo 03/22- preserved LV function, mild RV dysfunction. collapsable IVC. Hold norvasc, atorvastatin, spironolactone. 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 Patient has been followed by Dr. Mallory as outpatient. He has not been able to follow closely with [facility] due to financial reasons. states he has [facility] at [place] and [facility]. She states he has been referred to [facility] for possible repeat transplant due to plasma cell hepatitis but has not had followup appointment yet. prograf level 5-->7-->7.7-->5. continue prograf at 1mg daily 03/24. f/u daily prograf. would recommend goal prograf level 5-7. CT abd/pelvis non-contrast - pneumobilia, fecal impaction, no free air or fluid. repeat serial CT abd pelvis: no change. Consult GI, patient known to Dr. Mallory. UROLOGY: BPH Hold finasteride and tamsulosin FEN/RENAL: RAN- severe, persistent. Hypokalemia Hypomagnesemia Lactic Acidosis- resolved. Anion-gap metabolic acidosis- improving. Intravascular volume overload- resolved. Mcpherson in place. Monitor intake and output. Monitor electrolytes. hold lasix drip. give additional albumin. ID: Septic shock- persistent. LLL HCAP- Acinetobacter UTI Pneumobilia Leukocytosis Bandemia Continue Unasyn and Levaquin. ID consult: Dr. Anaya. HEME: Chronic anemia Thrombocytopenia Monitor CBC. ENDO: Diabetes mellitus Monitor Glucose every 4 hours. Medium dose sliding scale as indicated. PROPH: SCDs. Hold pharmacologic DVT prophylaxis as patient already has mild thrombocytopenia which may worsen, and may need further procedures/OR. Protonix 40 mg IV daily for stress ulcer prophylaxis. ACCESS: Left subclavian central venous line placed 03/21 #6. R radial art line 03/21 #6. still requires invasive monitoring for vasopressor therapy. updated at bedside. Full code Juan R Randle MD Mar 26, 2017 12:50 Juan R Randle MD Mar 26, 2017 12:50
[2017-03-26] MEDS: SODIUM CHLORIDE 0.9% FLUSH 10 ML FLUSH IV FLUSH PRN (14:37)
--- NOTE | 2017-03-26 15:30 | HHI.GIFU ---
Subjective Remarks Resting in bed. Sedated on vent. Failed cpap trials yesterday. at bedside. Objective Vitals I&O Vital Signs Date Time Temp Pulse Resp B/P Pulse Ox O2 Delivery O2 Flow Rate FiO2 03/26/17 14:38 100 35 03/26/17 12:00 54 03/26/17 12:00 97.2 55 15 105/64 100 128/65 03/26/17 12:00 55 105/64 128/65 03/26/17 12:00 35 03/26/17 11:09 100 35 03/26/17 10:00 105 03/26/17 08:48 100 35 03/26/17 08:00 91 03/26/17 08:00 35 03/26/17 08:00 91 101/69 113/65 03/26/17 08:00 98.2 91 15 101/69 100 113/65 03/26/17 06:00 119 03/26/17 04:08 100 35 03/26/17 04:00 123 105/76 122/72 03/26/17 04:00 123 03/26/17 04:00 98.5 123 15 105/76 100 122/72 03/26/17 04:00 35 03/26/17 03:00 103 03/26/17 01:21 100 35 03/26/17 00:00 117 03/26/17 00:00 98.5 117 15 117/76 100 128/75 03/26/17 00:00 35 03/25/17 23:55 116 117/79 128/79 03/25/17 23:01 100 35 03/25/17 22:00 117 03/25/17 20:00 98.6 127 15 121/86 100 132/76 03/25/17 20:00 35 03/25/17 20:00 133 03/25/17 20:00 127 121/86 132/76 03/25/17 19:56 100 35 03/25/17 18:00 130 03/25/17 17:10 121 15 95/77 100 146/82 03/25/17 17:06 124 15 80/59 99 107/66 03/25/17 17:04 123 15 73/58 99 89/57 03/25/17 17:00 119 15 61/44 99 67/45 7/13/17 16:58 116 15 76/50 68/46 03/25/17 16:00 35 03/25/17 16:00 118 103/71 110/64 03/25/17 16:00 96.7 120 15 103/71 100 110/64 03/25/17 16:00 120 03/25/17 15:57 100 35 I/O 03/25/17 03/25/17 03/25/17 03/26/17 03/26/17 03/26/17 06:59 14:59 22:59 06:59 14:59 22:59 Intake Total 974 ml 937 ml 1137 ml 1548 ml 1479 ml Output Total 2050 ml 1610 ml 1142 ml 840 ml 633 ml Balance -1076 ml -673 ml -5 ml 708 ml 846 ml Intake IV Total 974 ml 831 ml 824 ml 1220 ml 962 ml Tube Feeding 106 ml 213 ml 328 ml 317 ml Tube Irrigant 200 ml Other 100 ml Output Urine Total 2000 ml 1590 ml 1142 ml 840 ml 633 ml Gastric Drainage Total 50 ml 20 ml Laboratory Laboratory Tests Test 03/25/17 03/25/17 03/26/17 03/26/17 16:55 22:04 04:07 09:00 Sodium Level 140 139 138 136 Potassium Level 3.4 3.7 3.7 3.8 Chloride Level 100 100 100 99 Carbon Dioxide Level 27.0 27.1 25.7 25.5 Anion Gap 13 12 12 12 Blood Urea Nitrogen 89 94 98 95 Creatinine 2.49 2.54 2.59 2.63 Estimat Glomerular Filtration 26 25 25 24 Rate Random Glucose 169 265 349 379 Calcium Level 8.3 8.2 8.3 8.1 Magnesium Level 2.0 1.9 2.3 2.3 White Blood Count 22.0 Red Blood Count 3.14 Hemoglobin 8.7 Hematocrit 26.2 Mean Corpuscular Volume 83.5 Mean Corpuscular Hemoglobin 27.8 Mean Corpuscular Hemoglobin 33.2 Concent Red Cell Distribution Width 16.6 Platelet Count 101 Mean Platelet Volume 9.5 Phosphorus Level 4.4 Total Bilirubin 1.3 Direct Bilirubin 0.5 Indirect Bilirubin 0.8 Aspartate Amino Transf 20 (AST/SGOT) Alanine Aminotransferase 18 (ALT/SGPT) Alkaline Phosphatase 166 Total Protein 6.8 Albumin 2.6 Test 03/26/17 09:30 Tacrolimus (Prograf) Level 5.4 Date/Time Procedure Status Source Growth 03/24/17 00:50 Stool Occult Blood ([facility]) - Final Complete Stool Stool HEMOCCULT NEGATIVE 03/23/17 01:10 Gram Stain - Final Complete Sputum Endotracheal 03/23/17 01:10 Sputum Culture - Final Complete Sputum Endotracheal RARE GROWTH NORMAL RESPIRATORY MIKHAIL 03/22/17 06:05 Fungal Smear - Final Resulted Bronchial Washings Other NO FUNGAL ELEMENTS SEEN. 03/22/17 06:05 Fungal Culture Resulted Bronchial Washings Other Pending 03/22/17 06:05 Acid Fast Stain - Final Resulted Bronchial Washings Other NO ACID FAST BACILLI SEEN 03/22/17 06:05 Mycobacterial Culture Resulted Bronchial Washings Other Pending 03/21/17 18:30 Urine Culture - Final Complete Urine Catheterized Urine NO GROWTH IN 48 HOURS. 03/21/17 18:30 Legionella Antigen - Final Complete Urine Catheterized Urine PRESUMPTIVE NEGATIVE FOR LEGIONELLA P... 03/21/17 18:30 Streptococcus pneumoniae Antigen (M - Final Complete Urine Catheterized Urine PRESUMPTIVE NEGATIVE FOR STREPTOCOCCU... 03/21/17 18:10 Aerobic Blood Culture - Final Complete Blood Peripheral NO GROWTH IN 5 DAYS 03/21/17 18:10 Anaerobic Blood Culture - Final Complete Blood Peripheral NO GROWTH IN 5 DAYS Imaging Last Impressions Abdomen Ultrasound 03/22/172122 Signed Impressions: Service Date/Time: Wednesday, March 22, 2017 08:14 - CONCLUSION: 1. Mild diffusely heterogeneous transplant liver echotexture with small amount of volume loss. No definitive evidence for portal venous gas or significant pneumobilia by ultrasound exam. However, examination was not specifically tailored for extended interrogation of the hepatic vasculature. 2. No sonographic evidence for intra-or extrahepatic ductal dilatation. 3. Trace ascites and small bilateral pleural effusions. Everton Cruz MD Chest X-Ray 03/22/17 0000 Signed Impressions: Service Date/Time: Wednesday, March 22, 2017 02:37 - CONCLUSION: Infiltrate in the left lung inferiorly. Left subclavian Central line in good position. Tubes and catheter is in good position. Valerio Jerome MD Chest CT 03/22/17 0000 Signed Impressions: Service Date/Time: Wednesday, March 22, 2017 15:37 - CONCLUSION: There is ascites and bilateral pleural effusion and worsening left lung consolidation. Indu Cunningham MD Abdomen/Pelvis CT 03/22/17 0000 Signed Impressions: Service Date/Time: Wednesday, March 22, 2017 15:40 - CONCLUSION: Increase in ascites and mesenteric congestion since the prior exam. Indu Cunningham MD Abdomen X-Ray 03/22/17 0000 Signed Impressions: Service Date/Time: Wednesday, March 22, 2017 07:00 - CONCLUSION: No findings characteristic of perforation. Nasogastric tube coiled within the fundus of the stomach. Emilio Snow MD Head CT 03/21/17 0000 Signed Impressions: Service Date/Time: Tuesday, March 21, 2017 23:27 - CONCLUSION: Normal examination. Valerio Jerome MD Physical Exam HEENT: Normocephalic; atraumatic CHEST: CTA, diminished, OETT to vent. CARDIAC: SB ABDOMEN: Soft, nondistended, nontender; hepatosplenomegaly; bowel sounds are present in all four quadrants. EXTREMITIES: Generalized edema. 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 He has not been seen at the [facility] and 5-10 years secondary to financial issues. Unfortunately, he cannot make an appointment to follow up at [facility] until he makes a payment of $8,000 for an outstanding balance. The tells me charles there is no way she can make this payment and that she will have to "deal with that later." We did refer patient to [facility], but patient was declined secondary to having his transplant done at [facility] and they said that he would need to follow up at [facility]. 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 Similar histologic findings can also be seen in plasma cell rich rejection. Correlation with recent BILLY, ASMA, and serum IgG level is recommended. Typical features of acute cellular rejection are not seen. There is no evidence of chronic biliary tract disease or active steatohepatitis. Labs from January 28, 2017 revealed IgG total 3887, IgG1 2359, IgG3 57, IgG4 > 300.00. BILLY negative, ASMA negative. MELD 16. Spoke to Tiana Lo at [facility] to update on patient's condition and to see if he would able to be seen at their facility ([facility] has declined patient per our outpatient referral records). Per Tiana Lo, patient will not be able to be seen or make recommendations at [facility] until they have contacted Central Appointment Scheduling and settles outstanding balance. They cannot make recommendations , as they have not seen this patient since 2007 and would need to start the whole process over again and cannot do this until the outstanding balance is settled. LFTs stable T. Bili 1.3, AST 20, ALT 18, Alk Phosph 166. - Constipation, Fecal impaction. Abdomen/Pelvis CT (03/21/17)-----> Moderate stool throughout the colon. Small moderate of the bell hepatis I believe is biliary air. Other solid organs are unremarkable. Dense infiltrate left lower lobe within the lung. (+) BM. Lactulose with BID dosing. - Anemia with drop in Hgb. No obvious active bleeding. Hemoccult neg. H/H 8.7/ 26.2. Protonix to BID dosing. - Coagulopathy. PT 18.1, INR 1.6. - Sepsis with multisystem failure. Pt with bandemia, UTI/PNA. Bronchial washings with no growth 48 hours, mycobacterial culture pending, fungal culture pending urine negative for legionella and streptococcus, urine cx (-), bcx no growth Acinetobacter Baumannii/Haemol, Levaquin, Ampicillicin. On Levophed. CT as above. - Resp. Failure, HCAP. Abx, Nebs. Vent per CCM. - RAN with electrolyte abnormalities. Worsening, Creat 2.63 - AMS. EEG with diffusely low recording, could be medication effect as the patient was on fentanyl. No hemisphere asymmetries are noted. No epileptiform or seizure activity seen. - Hx HTN, hyperlipidemia, BPH, per attending. PLAN: - Jevity 1.5 at 60 ml/hr - Cont. Prograf - On Lasix Gtt per CCM - Cont. Lactulose - Cont. Xifaxan - Cont. PPI - Cont. Abx per ID recommendations- Levaquin, ampicillin - Monitor CBC, CMP, PT/INR - Supportive care - CCM following - ID following - Further recommendations to follow based on results of above - Of note, patient has been declined by [facility] secondary to having original transplant at [facility] - [facility] will not see patient or make recommendations until they have contacted the Central Appointment Office to resolve outstanding balance- aware. - Further recommendations to follow based on results of above - Pt seen and examined by Dr. Tate and myself and this note is written on his behalf Kenisha Lopez Mar 26, 2017 15:29
[2017-03-26 17:32] LABS: BICARBONATE 26.5 MEQ/L (21.0-32.0); MAGNESIUM 2.2 MG/DL (1.5-2.5); POTASSIUM 3.8 MEQ/L (3.5-5.1)
--- NOTE | 2017-03-26 18:36 | HHI.IDPN ---
Subjective Subjective Remarks Creatinine up to 22 K Worsening UOP uptreanding creatinine no fever improving resp status Antibiotics Amp/S leva Allergies: Coded Allergies: *MDRO Multi-Drug Resistant Organism (Verified Adverse Reaction, Unknown, ) MRSA (heel wound) - 07/23/16 MRSA PCR Screen POSITIVE-03/22/17 Objective . Vital Signs Date Time Temp Pulse Resp B/P Pulse Ox O2 Delivery O2 Flow Rate FiO2 03/26/17 18:00 55 03/26/17 16:00 56 115/65 127/63 03/26/17 16:00 35 03/26/17 16:00 56 03/26/17 16:00 97.0 55 15 115/65 100 127/63 03/26/17 15:56 100 35 03/26/17 14:38 100 35 03/26/17 14:00 54 03/26/17 12:00 54 03/26/17 12:00 97.2 55 15 105/64 100 128/65 03/26/17 12:00 55 105/64 128/65 03/26/17 12:00 35 03/26/17 11:09 100 35 03/26/17 10:00 105 03/26/17 08:48 100 35 03/26/17 08:00 91 03/26/17 08:00 35 03/26/17 08:00 91 101/69 113/65 03/26/17 08:00 98.2 91 15 101/69 100 113/65 03/26/17 06:00 119 03/26/17 04:08 100 35 03/26/17 04:00 123 105/76 122/72 03/26/17 04:00 123 03/26/17 04:00 98.5 123 15 105/76 100 122/72 03/26/17 04:00 35 03/26/17 03:00 103 03/26/17 01:21 100 35 03/26/17 00:00 117 03/26/17 00:00 98.5 117 15 117/76 100 128/75 03/26/17 00:00 35 03/25/17 23:55 116 117/79 128/79 03/25/17 23:01 100 35 03/25/17 22:00 117 03/25/17 20:00 98.6 127 15 121/86 100 132/76 03/25/17 20:00 35 03/25/17 20:00 133 03/25/17 20:00 127 121/86 132/76 03/25/17 19:56 100 35 03/25/17 03/25/17 03/26/17 15:00 23:00 07:00 Intake Total 892 ml 1143 ml 1558 ml Output Total 1595 ml 1062 ml 805 ml Balance -703 ml 81 ml 753 ml Intake IV Total 763 ml 823 ml 1218 ml Tube Feeding 129 ml 220 ml 340 ml Other 100 ml Output Urine Total 1595 ml 1062 ml 805 ml . Laboratory Tests Test 03/25/17 03/26/17 06:15 04:07 White Blood Count 16.7 TH/MM3 22.0 TH/MM3 Red Blood Count 3.00 MIL/MM3 3.14 MIL/MM3 Hemoglobin 8.4 GM/DL 8.7 GM/DL Hematocrit 24.7 % 26.2 % Mean Corpuscular Volume 82.4 FL 83.5 FL Mean Corpuscular Hemoglobin 28.0 PG 27.8 PG Mean Corpuscular Hemoglobin 34.0 % 33.2 % Concent Red Cell Distribution Width 16.2 % 16.6 % Platelet Count 90 TH/MM3 101 TH/MM3 Mean Platelet Volume 9.1 FL 9.5 FL Laboratory Tests Test 03/24/17 03/25/17 03/25/17 03/25/17 21:51 04:10 09:45 16:55 Sodium Level 135 MEQ/L 136 MEQ/L 135 MEQ/L 140 MEQ/L Potassium Level 3.6 MEQ/L 3.7 MEQ/L 3.6 MEQ/L 3.4 MEQ/L Chloride Level 99 MEQ/L 98 MEQ/L 99 MEQ/L 100 MEQ/L Carbon Dioxide Level 26.9 MEQ/L 23.6 MEQ/L 25.6 MEQ/L 27.0 MEQ/L Anion Gap 9 MEQ/L 14 MEQ/L 10 MEQ/L 13 MEQ/L Blood Urea Nitrogen 79 MG/DL 78 MG/DL 82 MG/DL 89 MG/DL Creatinine 2.54 MG/DL 2.45 MG/DL 2.48 MG/DL 2.49 MG/DL Estimat Glomerular Filtration 25 ML/MIN 27 ML/MIN 26 ML/MIN 26 ML/MIN Rate Random Glucose 200 MG/DL 206 MG/DL 186 MG/DL 169 MG/DL Calcium Level 7.8 MG/DL 8.1 MG/DL 8.2 MG/DL 8.3 MG/DL Magnesium Level 1.7 MG/DL 2.0 MG/DL 2.0 MG/DL 2.0 MG/DL Phosphorus Level 4.7 MG/DL Total Bilirubin 1.2 MG/DL Direct Bilirubin 0.5 MG/DL Indirect Bilirubin 0.7 MG/DL Aspartate Amino Transf 17 U/L (AST/SGOT) Alanine Aminotransferase 16 U/L (ALT/SGPT) Alkaline Phosphatase 124 U/L Total Protein 6.4 GM/DL Albumin 2.0 GM/DL Test 03/25/17 03/26/17 03/26/17 03/26/17 22:04 04:07 09:00 15:40 Sodium Level 139 MEQ/L 138 MEQ/L 136 MEQ/L 139 MEQ/L Potassium Level 3.7 MEQ/L 3.7 MEQ/L 3.8 MEQ/L 3.8 MEQ/L Chloride Level 100 MEQ/L 100 MEQ/L 99 MEQ/L 101 MEQ/L Carbon Dioxide Level 27.1 MEQ/L 25.7 MEQ/L 25.5 MEQ/L 26.5 MEQ/L Anion Gap 12 MEQ/L 12 MEQ/L 12 MEQ/L 12 MEQ/L Blood Urea Nitrogen 94 MG/DL 98 MG/DL 95 MG/DL 102 MG/DL Creatinine 2.54 MG/DL 2.59 MG/DL 2.63 MG/DL 2.81 MG/DL Estimat Glomerular Filtration 25 ML/MIN 25 ML/MIN 24 ML/MIN 23 ML/MIN Rate Random Glucose 265 MG/DL 349 MG/DL 379 MG/DL 352 MG/DL Calcium Level 8.2 MG/DL 8.3 MG/DL 8.1 MG/DL 8.1 MG/DL Magnesium Level 1.9 MG/DL 2.3 MG/DL 2.3 MG/DL 2.2 MG/DL Phosphorus Level 4.4 MG/DL Total Bilirubin 1.3 MG/DL Direct Bilirubin 0.5 MG/DL Indirect Bilirubin 0.8 MG/DL Aspartate Amino Transf 20 U/L (AST/SGOT) Alanine Aminotransferase 18 U/L (ALT/SGPT) Alkaline Phosphatase 166 U/L Total Protein 6.8 GM/DL Albumin 2.6 GM/DL Microbiology Date/Time Procedure Status Source Growth 03/24/17 00:50 Stool Occult Blood ([facility]) - Final Complete Stool Stool HEMOCCULT NEGATIVE Imaging Last Impressions Abdomen Ultrasound 03/22/172122 Signed Impressions: Service Date/Time: Wednesday, March 22, 2017 08:14 - CONCLUSION: 1. Mild diffusely heterogeneous transplant liver echotexture with small amount of volume loss. No definitive evidence for portal venous gas or significant pneumobilia by ultrasound exam. However, examination was not specifically tailored for extended interrogation of the hepatic vasculature. 2. No sonographic evidence for intra-or extrahepatic ductal dilatation. 3. Trace ascites and small bilateral pleural effusions. Everton Cruz MD Chest X-Ray 03/22/17 0000 Signed Impressions: Service Date/Time: Wednesday, March 22, 2017 02:37 - CONCLUSION: Infiltrate in the left lung inferiorly. Left subclavian Central line in good position. Tubes and catheter is in good position. Valerio Jerome MD Chest CT 03/22/17 0000 Signed Impressions: Service Date/Time: Wednesday, March 22, 2017 15:37 - CONCLUSION: There is ascites and bilateral pleural effusion and worsening left lung consolidation. Indu Cunningham MD Abdomen/Pelvis CT 03/22/17 0000 Signed Impressions: Service Date/Time: Wednesday, March 22, 2017 15:40 - CONCLUSION: Increase in ascites and mesenteric congestion since the prior exam. Indu Cunningham MD Abdomen X-Ray 03/22/17 0000 Signed Impressions: Service Date/Time: Wednesday, March 22, 2017 07:00 - CONCLUSION: No findings characteristic of perforation. Nasogastric tube coiled within the fundus of the stomach. Emilio Snow MD Head CT 03/21/17 0000 Signed Impressions: Service Date/Time: Tuesday, March 21, 2017 23:27 - CONCLUSION: Normal examination. Valerio Jerome MD Physical Exam CONSTITUTIONAL/GENERAL: This is an adequately nourished patient, in no apparent distress. TUBES/LINES/DRAINS: SKIN: + mild jaundice, rashes, or lesions. Skin temperature appropriate.Non diaphoretic. EYES: Pupils reactive . + minimal scleral icterus. No injection or drainage. Fundi not examined. NECK: Trachea midline. CARDIOVASCULAR: Regular rate and rhythm without murmurs, gallops, or rubs. No JVD. Periphery is poorly perfused RESPIRATORY/CHEST: Symmetric, respirations. Clear to auscultation. Breath sounds equal bilaterally. No wheezes, rales, or rhonchi. GASTROINTESTINAL: Abdomen soft, no reaction to palpation, + mildly-to- moderately distended. No hepato-splenomegaly, or palpable masses. No guarding. Bowel sounds present. GENITOURINARY: Without palpable bladder distension. Mcpherson catheter in place with clear yellow urine MUSCULOSKELETAL: Extremities without clubbing, + increasing edema no cyanosis . No mottling or clubbing. NEUROLOGICAL: sedated withdrawls not opening eyes not following commnads PSYCHIATRIC: Unable to assess Assessment & Plan Remarks Sepsis, septic shock, Acinetobacter chávez S clinically improved Source is likley bacteremiic gram negative PNA 2/2 Acinetobacter : though no growth on clx, Gstain was with GNBs LLL PNA , gram negative ? acinetobacter Acinetobacter bacteremia Acute VDRF ARF on CKD: no e/o interst nephritis Immunosuppressed, sp liver transplant Critically ill, stable Worsening leukocytosis REC's:cont Amp/sulbactam, levaquine other option cefepime, fortaz; will avoid Rocephin in liver transplant pt 2 /2 cholestatic risks fu WBC chk urine eos, blood clx consider to repeat CT c oral contrast only Celestina Oneal RN, Dr, MD Mar 26, 2017 18:36
[2017-03-26 23:19] LABS: BICARBONATE 26.3 MEQ/L (21.0-32.0); MAGNESIUM 2.1 MG/DL (1.5-2.5); POTASSIUM 3.8 MEQ/L (3.5-5.1)
[2017-03-27] VITALS (19 sets, daily range): BP systolic 93–149; BP diastolic 55–86; PULSE 56–74; RESP 15; TEMP 96.7–98.3; O2SAT 95–100
[2017-03-27] MEDS: DILTIAZEM HCL 30 MG TAB PO SCH ×4 (00:10→18:35)
[2017-03-27] MEDS ORDERED: POTASSIUM CHLOR 20 MEQ PREMIX 100 ML IV ONE (01:00)
[2017-03-27] MEDS: fentaNYL DRIP 250 ML IV SCH ×2 (01:55→13:42)
[2017-03-27] MEDS: RESP: ALBUTEROL 2.5 MG/3 ML NEB (PRN) NEB (02:56)
[2017-03-27] MEDS: PROPOFOL 1000 MG/100 ML INJ 100 ML IV SCH ×3 (03:03→22:35)
[2017-03-27] MEDS: CHLORHEXIDINE GLUCONATE 2 % 1 PACK (2 CLOTHS) TOP SCH (03:47)
[2017-03-27] MEDS: HIGH DOSE INSULIN NOVOLIN REGULAR SUPPLEMENTAL SCALE SQ SCH ×6 (03:48→20:00)
[2017-03-27] MEDS: AMPICILLIN-SULBACTAM INJ 3 GM in SODIUM CHLORIDE 0.9% INJ 100 ML IV SCH ×4 (03:51→22:35)
[2017-03-27] MEDS: HYDROCORTISONE SOD SUCCINATE 100 MG VIAL IV PUSH SCH ×3 (04:49→20:58)
[2017-03-27 06:02] LABS: HEMATOCRIT 26.4 % (39.0-51.0); MEAN CELL VOLUME 85.4 FL (80.0-100.0); MEAN CORPUSCULAR HEMOGLOBIN 27.9 PG (27.0-34.0); MEAN CORPUSCULAR HGB CONC 32.7 % (32.0-36.0); PLATELET COUNT 82 TH/MM3 (150-450); RED BLOOD COUNT 3.09 MIL/MM3 (4.50-5.90); RED CELL DISTRIBUTION WIDTH 16.5 % (11.6-17.2); WHITE BLOOD COUNT 16.8 TH/MM3 (4.0-11.0)
[2017-03-27 06:24] LABS: BICARBONATE 27.1 MEQ/L (21.0-32.0); MAGNESIUM 2.1 MG/DL (1.5-2.5); POTASSIUM 3.7 MEQ/L (3.5-5.1)
[2017-03-27 06:30] LABS: INDIRECT BILIRUBIN 0.6 MG/DL (0.0-0.8); TOTAL BILIRUBIN ADULT 0.9 MG/DL (0.2-1.0)
[2017-03-27 06:43] LABS: REVIEW FLAG FINAL
[2017-03-27] MEDS: POTASSIUM CHLOR 10 MEQ PREMIX 100 ML IV SCH ×3 (06:50→09:29)
[2017-03-27] MEDS: LACTULOSE SYRUP 20 GM/30 ML CUP PO SCH ×2 (09:26→20:58)
[2017-03-27] MEDS: DOCUSATE SODIUM 50 MG/SENNA 8.6 MG TAB PO SCH ×2 (09:26→20:59)
[2017-03-27] MEDS: FOLIC ACID 1 MG TAB PO SCH ×2 (09:26→20:58)
[2017-03-27] MEDS: PANTOPRAZOLE SODIUM 40 MG VIAL IV SCH ×2 (09:26→20:58)
[2017-03-27] MEDS: CHOLECALCIFEROL (VIT D3) 1000 UNIT TAB PO SCH ×2 (09:26→20:58)
[2017-03-27] MEDS: RIFAXIMIN 550 MG TAB OG-TUBE SCH ×2 (09:26→20:58)
[2017-03-27] MEDS: TACROLIMUS 1 MG CAP PO SCH (09:26)
[2017-03-27] MEDS: SODIUM CHLORIDE 0.9% FLUSH 10 ML FLUSH IV FLUSH SCH ×2 (09:27→20:59)
[2017-03-27] MEDS: CHLORHEXIDINE 0.12% (ORAL KIT) 15 ML CUP MT SCH ×2 (09:29→20:58)
--- NOTE | 2017-03-27 14:01 | HHI.CCPN ---
Subjective Remarks/Hospital Course Hospital Course: 67-year-old male with past medical history of primary sclerosing cholangitis with orthotopic liver transplant at [facility] in 2001, hypertension, atrial fibrillation status post ablation, hyperlipidemia, diabetes mellitus who presents to [facility] emergency department with altered mental status, fever, urinary incontinence. He was brought in by his . She states that this morning he was doing well and participated with home health physical therapy. When his returned home this evening she found him lethargic and minimally responsive. He had a cup full of mucus and when she inquired about it he stated that he had vomited. He refused ambulance transport. He had a temperature of 103 upon arrival to the emergency department. His states he told ED staff that he had experienced dysuria starting today. He has h/o BPH and UTI in the past. He has chronic low back pain. He denies headache or neck stiffness. His states he returned to his baseline mental status while in the ED and was conversant with her. He had no focal weakness and no witnessed seizure. His ED workup demonstrated U/a with moderate bacteria, 13 WBC, 2 RBC. White blood cell count was 14 with 9% bands, hemoglobin 10.5, platelets 135, AST 45, ALT 31, alkaline phosphatase 172, PT 12.3, INR 1.1 . Creatinine was 2.32 (baseline about 1.6-2), BUN 73, sodium 132 , potassium 5.2, bicarbonate 17 His initial lactic acid was 1.6. He was given Zosyn and 3 L NS bolus and admitted to the hospitalist service. He was complaining of chronic back pain and was anxious/agitated so was given Ativan 0.5 mg IV (chronically on Xanax). ED physician Dr. Orozco was called in because he became unresponsive and he was hypopneic with inadequate respirations. Sats were in the 60s. He complained to his that he could not see. He was hypotensive in 70s and post-intubation BP dropped to 60s/40s and [facility] was called. CVL was placed and he was started on levophed and vasopressin. He is awake on vent and answering questions yes/no. Subjective: 03/22: patient in refractory distributive shock. I evaluated the patient multiple times throughout the day beginning around 0600 and at frequent intervals. Patient remains acidotic on maximal vasopressor therapy. I had discussions with Dr. Anyaa with ID, cultures are growing out Acinetobacter. abx changed to tobra, vanc, meropenem, levaquin, unasyn. continued ivf resuscitation throughout the day guided by frequent IVC and cardiac echo. formal echo with grossly preserved LV function and mild RV dysfunction. but IVC continued to be collapsable. acute renal failure worsening and acidosis severe. started on bicarb drip. repeat CT abd/pelvis performed. I personally transported patient down to CT scanner given how severely unstable the patient was. Discussed with general surgery and interval CT scan is necessary to eval for intra-abdominal source of sepsis. interval CT without change. most likely Acinetobacter pneumonia with overwhelming septic shock. discussed with at length multiple times today regarding his life-threatening infection and his high risk of mortality. 03/23: vasopressors weaning down. patient waking up, following commands. still persistently acidotic, in multiorgan failure. renal dysfunction persists and oliguric. acinetobacter sensitivities not resulted. 03/24: off vasopressors. clinically beginning to improve. Acinetobacter is pansensitive. oliguria persists, but Cr stable and no current indication for acute HD. 03/25: went into afib RVR yesterday. given mgso4 and started aggressive forced diuresis with lasix drip at 20mg/hr. converted spontaneously back to NSR after only about 2 hours. This AM net -2.4L/24h. continues to make 200cc/hr uop. hemodynamics stable. very low-dose norepinephrine requirement. Cr stable, though RAN persists. 03/26: remains in afib, intermittently RVR. on diltiazem drip. Cr worse. uop declining. appears intravascularly dry. stopped lasix drip. wbc uptrending, but still appears nontoxic. Subjective: 03/27 Afebrile, WBC 16.8 from 22k. In afib, rate controlled in 60s on cardizem po , discontinuing cardizem 5 mg/hr that is running. Creatinine steady at 2.75 ( previoulsy 2.8 <--2.81). UOP was in 70s this morning, now down to 50 cc/hr and 30 cc/hr. Positive fluid balance last 24 hours. Now CI 2.1 SVV 7, SVI 33. Glucose poorly controlled in 200s to 300s despite high does insulin sliding scale. Off vasopressors since this morning. Objective Vital Signs Date Time Temp Pulse Resp B/P Pulse Ox O2 Delivery O2 Flow Rate FiO2 03/27/17 12:00 56 03/27/17 12:00 35 03/27/17 12:00 93/60 100/61 03/27/17 12:00 97.2 15 99 Intake and Output 03/26/17 03/26/17 03/27/17 08:00 16:00 00:00 Intake Total 1580 ml 1213 ml 1053 ml Output Total 720 ml 593 ml 429 ml Balance 860 ml 620 ml 624 ml Result Diagram: 03/27/17 0445 03/27/17 0410 Objective Remarks GENERAL: Chronically ill-appearing 67-year-old male who is orotracheally intubated. SKIN: Warm and dry. HEAD: Atraumatic. Normocephalic. EYES: Pupils equal and round, 2 mm and reactive bilaterally. No scleral icterus. No injection or drainage. ENT: Mucous membranes moist NECK: Trachea midline. jvd difficult to assess due to body habitus. CARDIOVASCULAR: Distant heart sounds, tachycardic rate, irregularly irregular rhythm RESPIRATORY: PRVC. fio2 35%. equal chest rise. GASTROINTESTINAL: Abdomen soft, non-tender, nondistended. no guarding. MUSCULOSKELETAL: There is muscular atrophy of intrinsics of bilateral hands. Extremities without clubbing, cyanosis. No obvious deformities. 1+ edema of all extremities. NEUROLOGICAL: Withdraws extremities to noxious stimuli. Eyes open intermittently. A/P Assessment and Plan Assessment: 67yM s/p OLTx in 2001 now with resolving septic shock secondary to Acinetobacter bacteremia and pneumonia. RAN persists. stop force diuresis. add additional 25% albumin to mobilize intravascular volume. continue abx. if afib does not convert, would pursue cardioversion. vasopressors persist as well. highly complex medical patient remains intubated, failing SBTs. still requires continued support to prevent decompensation. NEURO: Vision change Acute metabolic encephalopathy- resolving. Peripheral neuropathy Patient reported to that he could not see before intubation. ?secondary to profound hypotension and hypoperfusion. Pupils reactive, unable to assess vision currently due to intubation and clinical condition. CT brain negative. Obtaned Ammonia level -->28 EEG 03/22: severe slowing, no ictal focus. Fentanyl drip for analgosedation propofol for goal RASS -2. Daily sedation vacation Hold Neurontin 300 mg by mouth 3 times a day. Hold Xanax RESP: Acute hypoxic and hypercarpenicc respiratory failure- History of tobacco abuse Acute healthcare associated left lower lobe pneumonia Ventilator bundle, hob @ 30 degrees, wean fio2 for spo2 > 90% Duoneb every 6 hours. Albuterol every [address] chest - dense consolidation of LLL with air bronchograms. Bronchoscopy with BAL lingula 03/22 continue daily SBTs, failing for tachypnea and resp distress. Will ultrasound to assess for ascites and potential need for therapeutic paracentesis. CXR in am CV: Septic shock with multiorgan failure- History of atrial fibrillation status post ablation , A fib rate controlled today. History of hypertension Hyperlipidemia Initial troponin 0.03, mild increase to 0.06 is likely related to sepsis. Echo from 01/23/17 - +LVH, EF 60-65%. No regional wall motion abnormalities. Left atrial dilation. Echo 03/22- preserved LV function, mild RV dysfunction. collapsable IVC. Hold norvasc, atorvastatin, spironolactone. GI: History of orthotopic liver transplant 2001 (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 Patient has been followed by Dr. Mallory as outpatient. He has not been able to follow closely with [facility] due to financial reasons. states he has [facility] levels [facility] at [place] [facility] [place] [facility]. She states he has been referred to [facility] for possible repeat transplant due to plasma cell hepatitis but has not had followup appointment yet. prograf level 5-->7-->7.7-->5. continue prograf at 1mg daily 03/24. Goal prograf level 5-7. Level 03/26 is 5.4. repeat is pending. CT abd/pelvis non-contrast - pneumobilia, fecal impaction, no free air or fluid. repeat CT abd pelvis: no change. GI following, patient known to Dr. Mallory. Per GI, patient declined by [facility] for liver transplant. On Xifaxan and lactulose. Glucerna 1.5 @ 60/hr. UROLOGY: BPH Hold finasteride and tamsulosin FEN/RENAL: RAN- severe, persistent. Hypokalemia Hypomagnesemia Lactic Acidosis- resolved. Anion-gap metabolic acidosis- improving. Mcpherson in place. Monitor intake and output hourly. Monitor electrolytes and replace as indicated. Urine eos negative 03/24. ID: Septic shock- persistent. LLL HCAP- Acinetobacter UTI Pneumobilia Leukocytosis Bandemia Continue Unasyn and Levaquin. ID following: Dr. Anaya. HEME: Chronic anemia Thrombocytopenia Monitor CBC. ENDO: Diabetes mellitus Monitor Glucose every 4 hours. High dose insulin sliding scale q4 hours with 125 of coverage. Will initiate Glucerna 30 subcut q12. Wean Hydrocortisone 50 IV q6. PROPH: SCDs. Check INR today. Consider subcut heparin for DVT prophylaxis. Protonix 40 mg IV daily for stress ulcer prophylaxis. ACCESS: Left subclavian central venous line placed 03/21 #7. R radial art line 03/21 #7 Full code LEvel 3 Consult Leelee Tinajero MD Mar 27, 2017 14:01
--- NOTE | 2017-03-27 14:08 | HHI.GIFU ---
Subjective Remarks Pt on vent. Sister in law at bedside. Per RN decreased UOP today, jevity switched to nepro. (Faith Fierro) Objective Vitals I&O Vital Signs Date Time Temp Pulse Resp B/P Pulse Ox O2 Delivery O2 Flow Rate FiO2 03/27/17 12:00 56 03/27/17 12:00 35 03/27/17 12:00 56 93/60 100/61 03/27/17 12:00 97.2 56 15 93/60 99 100/61 03/27/17 10:04 97 35 03/27/17 10:00 59 03/27/17 08:00 98.3 59 149/79 99 145/76 03/27/17 08:00 59 03/27/17 08:00 59 149/79 145/76 03/27/17 08:00 35 03/27/17 07:41 98 35 03/27/17 06:00 56 03/27/17 04:19 97 35 03/27/17 04:00 35 03/27/17 04:00 98.2 66 15 149/86 95 106/80 03/27/17 04:00 66 149/86 106/81 03/27/17 04:00 66 03/27/17 02:00 68 03/27/17 01:06 99 35 03/27/17 00:00 56 03/27/17 00:00 35 03/27/17 00:00 98.2 64 15 125/72 100 101/77 03/27/17 00:00 64 125/72 101/77 03/26/17 22:00 58 03/26/17 21:00 59 123/70 142/64 03/26/17 20:00 35 03/26/17 20:00 97.8 55 15 111/67 100 124/63 03/26/17 20:00 55 03/26/17 19:49 100 35 03/26/17 18:00 55 03/26/17 16:00 56 115/65 127/63 03/26/17 16:00 35 03/26/17 16:00 56 03/26/17 16:00 97.0 55 15 115/65 100 127/63 03/26/17 15:56 100 35 03/26/17 14:38 100 35 I/O 7/03/26/17 03/26/17 03/27/17 03/27/17 03/27/17 07:00 15:00 23:00 07:00 15:00 23:00 Intake Total 1558 ml 1317 ml 1006 ml 1106 ml 226 ml Output Total 805 ml 593 ml 384 ml 499 ml 299 ml Balance 753 ml 724 ml 622 ml 607 ml -73 ml Intake IV Total 1218 ml 842 ml 403 ml 520 ml 106 ml Tube Feeding 340 ml 275 ml 428 ml 486 ml Tube Irrigant 200 ml 175 ml 0 ml Other 100 ml 120 ml Output Urine Total 805 ml 593 ml 384 ml 498 ml 299 ml Stool Total 1 ml Laboratory Laboratory Tests Test 03/26/17 03/26/17 03/27/17 03/27/17 15:40 22:18 04:10 04:45 Sodium Level 139 138 139 Potassium Level 3.8 3.8 3.7 Chloride Level 101 102 101 Carbon Dioxide Level 26.5 26.3 27.1 Anion Gap 12 10 11 Blood Urea Nitrogen 102 112 115 Creatinine 2.81 2.80 2.75 Estimat Glomerular Filtration 23 23 23 Rate Random Glucose 352 322 269 Calcium Level 8.1 8.1 8.2 Magnesium Level 2.2 2.1 2.1 Phosphorus Level 4.5 Total Bilirubin 0.9 Direct Bilirubin 0.3 Indirect Bilirubin 0.6 Aspartate Amino Transf 21 (AST/SGOT) Alanine Aminotransferase 15 (ALT/SGPT) Alkaline Phosphatase 142 Total Protein 6.9 Albumin 2.6 White Blood Count 16.8 Red Blood Count 3.09 Hemoglobin 8.6 Hematocrit 26.4 Mean Corpuscular Volume 85.4 Mean Corpuscular Hemoglobin 27.9 Mean Corpuscular Hemoglobin 32.7 Concent Red Cell Distribution Width 16.5 Platelet Count 82 Mean Platelet Volume 8.4 Date/Time Procedure Status Source Growth 03/24/17 00:50 Stool Occult Blood (MARSHAL) - Final Complete Stool Stool HEMOCCULT NEGATIVE 03/23/17 01:10 Gram Stain - Final Complete Sputum Endotracheal 03/23/17 01:10 Sputum Culture - Final Complete Sputum Endotracheal RARE GROWTH NORMAL RESPIRATORY MIKHAIL Imaging Last Impressions Abdomen Ultrasound 03/22/172122 Signed Impressions: Service Date/Time: Wednesday, March 22, 2017 08:14 - CONCLUSION: 1. Mild diffusely heterogeneous transplant liver echotexture with small amount of volume loss. No definitive evidence for portal venous gas or significant pneumobilia by ultrasound exam. However, examination was not specifically tailored for extended interrogation of the hepatic vasculature. 2. No sonographic evidence for intra-or extrahepatic ductal dilatation. 3. Trace ascites and small bilateral pleural effusions. Everton Cruz MD Chest X-Ray 03/22/17 Signed Impressions: Service Date/Time: Wednesday, March 22, 2017 02:37 - CONCLUSION: Infiltrate in the left lung inferiorly. Left subclavian Central line in good position. Tubes and catheter is in good position. Valerio Jerome MD Chest CT 03/22/17 0000 Signed Impressions: Service Date/Time: Wednesday, March 22, 2017 15:37 - CONCLUSION: There is ascites and bilateral pleural effusion and worsening left lung consolidation. Indu Cunningham MD Abdomen/Pelvis CT 03/22/17 Signed Impressions: Service Date/Time: Wednesday, March 22, 2017 15:40 - CONCLUSION: Increase in ascites and mesenteric congestion since the prior exam. Indu Cunningham MD Abdomen X-Ray 03/22/17 Signed Impressions: Service Date/Time: Wednesday, March 22, 2017 07:00 - CONCLUSION: No findings characteristic of perforation. Nasogastric tube coiled within the fundus of the stomach. Emilio Snow MD Head CT 03/21/17 0000 Signed Impressions: Service Date/Time: Tuesday, March 21, 2017 23:27 - CONCLUSION: Normal examination. Valerio Jerome MD Physical Exam HEENT: Normocephalic; atraumatic CHEST: CTA, diminished, OETT to vent. CARDIAC: SB ABDOMEN: Soft, nondistended, nontender; hepatosplenomegaly; bowel sounds faint EXTREMITIES: Generalized edema. SKIN: Generalized pallor HACKLER DOLL WIGS: Sedated on vent. 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 He has not been seen at the [facility] and 5-10 years secondary to financial issues. Unfortunately, he cannot make an appointment to follow up at [facility] until he makes a payment of $8,000 for an outstanding balance. The tells me charles there is no way she can make this payment and that she will have to "deal with that later." We did refer patient to [facility], but patient was declined secondary to having his transplant done at [facility] and they said that he would need to follow up at [facility]. 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 Similar histologic findings can also be seen in plasma cell rich rejection. Correlation with recent BILLY, ASMA, and serum IgG level is recommended. Typical features of acute cellular rejection are not seen. There is no evidence of chronic biliary tract disease or active steatohepatitis. Labs from January 28, 2017 revealed IgG total 3887, IgG1 2359, IgG3 57, IgG4 > 300.00. BILLY negative, ASMA negative. MELD 16. Spoke to Tiana Lo at [facility] to update on patient's condition and to see if he would able to be seen at their facility ([facility] has declined patient per our outpatient referral records). Per Tiana Lo, patient will not be able to be seen or make recommendations at [facility] until they have contacted Central Appointment Scheduling and settles outstanding balance. They cannot make recommendations , as they have not seen this patient since 2007 and would need to start the whole process over again and cannot do this until the outstanding balance is settled. LFTs stable - Constipation, Fecal impaction. Abdomen/Pelvis CT (03/21/17)-----> Moderate stool throughout the colon. Small moderate of the bell hepatis I believe is biliary air. Other solid organs are unremarkable. Dense infiltrate left lower lobe within the lung. (+) BM. Lactulose with BID dosing. - Anemia with drop in Hgb. No obvious active bleeding. Hemoccult neg. H/H stable. Protonix to BID - Coagulopathy. PT 18.1, INR 1.6. - Sepsis with multisystem failure. Pt with bandemia, UTI/PNA. Bronchial washings with no growth 48 hours, mycobacterial culture pending, fungal culture pending urine negative for legionella and streptococcus, urine cx (-), bcx no growth Acinetobacter Baumannii/Haemol, Levaquin, Ampicillicin. On Levophed. CT as above. - Resp. Failure, HCAP. Abx, Nebs. Vent per CCM. - RAN with electrolyte abnormalities. Worsening, Creat 2.75 decreasing UOP per RN - AMS. EEG with diffusely low recording, could be medication effect as the patient was on fentanyl. No hemisphere asymmetries are noted. No epileptiform or seizure activity seen. - Hx HTN, hyperlipidemia, BPH, per attending. PLAN: - Cont. Prograf - On Lasix Gtt per CCM - Cont. Lactulose - Cont. Xifaxan - Cont. PPI - Cont. Abx per ID recommendations- Levaquin, ampicillin - Monitor CBC, CMP, PT/INR - Supportive care - CCM following - ID following - Further recommendations to follow based on results of above - Of note, patient has been declined by [facility] secondary to having original transplant at [facility] - [facility] will not see patient or make recommendations until they have contacted the Central Appointment Office to resolve outstanding balance- aware. - Pt seen and examined by Dr. Cabrales and myself and this note is written on his behalf (Faith Fierro) Physician Comments patient was seen and examined, agree with above note and plan, guarded prognosis. (Mary Cabrales MD) Faith Fierro Mar 27, 2017 14:08 Mary Cabrales MD Mar 27, 2017 16:03
[2017-03-27] MEDS: FUROSEMIDE 40 MG/4 ML VIAL IV PUSH SCH (16:17)
[2017-03-27] MEDS: ALBUMIN HUMAN 25% 25 GM/100 ML BAGP IV SCH (16:17)
[2017-03-27 16:50] LABS: APTT (PATIENT) 31.5 SEC (24.3-30.1); INTERNATIONAL NORMALIZED RATIO 1.1 RATIO
[2017-03-27 17:00] LABS: BICARBONATE 26.7 MEQ/L (21.0-32.0); POTASSIUM 3.9 MEQ/L (3.5-5.1)
--- NOTE | 2017-03-27 17:34 | HHI.IDPN ---
Subjective Subjective Remarks WBC up to 22 K, better today 16.8 K Worsening UOP uptreanding creatinine, UOP 30 cc/hr, 50/hr with alb/lasix no fever improving resp status developped diarrhea Antibiotics Amp/S leva Allergies: Coded Allergies: *MDRO Multi-Drug Resistant Organism (Verified Adverse Reaction, Unknown, ) MRSA (heel wound) - 07/23/16 MRSA PCR Screen POSITIVE-03/22/17 Objective . Vital Signs Date Time Temp Pulse Resp B/P Pulse Ox O2 Delivery O2 Flow Rate FiO2 03/27/17 16:00 35 03/27/17 16:00 59 03/27/17 16:00 97.7 59 122/74 100 139/69 03/27/17 16:00 59 122/74 139/69 03/27/17 15:56 99 35 03/27/17 14:00 62 03/27/17 12:00 56 03/27/17 12:00 35 03/27/17 12:00 56 93/60 100/61 03/27/17 12:00 97.2 56 15 93/60 99 100/61 03/27/17 10:04 97 35 03/27/17 10:00 59 03/27/17 08:00 98.3 59 149/79 99 145/76 03/27/17 08:00 59 03/27/17 08:00 59 149/79 145/76 03/27/17 08:00 35 03/27/17 07:41 98 35 03/27/17 06:00 56 03/27/17 04:19 97 35 03/27/17 04:00 35 03/27/17 04:00 98.2 66 15 149/86 95 106/80 03/27/17 04:00 66 149/86 106/81 03/27/17 04:00 66 03/27/17 02:00 68 03/27/17 01:06 99 35 03/27/17 00:00 56 03/27/17 00:00 35 03/27/17 00:00 98.2 64 15 125/72 100 101/77 03/27/17 00:00 64 125/72 101/77 03/26/17 22:00 58 03/26/17 21:00 59 123/70 142/64 03/26/17 20:00 35 03/26/17 20:00 97.8 55 15 111/67 100 124/63 03/26/17 20:00 55 03/26/17 19:49 100 35 03/26/17 18:00 55 03/26/17 03/26/17 03/27/17 14:59 22:59 06:59 Intake Total 1479 ml 888 ml 1131 ml Output Total 633 ml 334 ml 544 ml Balance 846 ml 554 ml 587 ml Intake IV Total 962 ml 345 ml 548 ml Tube Feeding 317 ml 368 ml 483 ml Tube Irrigant 200 ml 175 ml 0 ml Other 100 ml Output Urine Total 633 ml 334 ml 543 ml Stool Total 1 ml . Laboratory Tests Test 03/26/17 03/27/17 04:07 04:45 White Blood Count 22.0 TH/MM3 16.8 TH/MM3 Red Blood Count 3.14 MIL/MM3 3.09 MIL/MM3 Hemoglobin 8.7 GM/DL 8.6 GM/DL Hematocrit 26.2 % 26.4 % Mean Corpuscular Volume 83.5 FL 85.4 FL Mean Corpuscular Hemoglobin 27.8 PG 27.9 PG Mean Corpuscular Hemoglobin 33.2 % 32.7 % Concent Red Cell Distribution Width 16.6 % 16.5 % Platelet Count 101 TH/MM3 82 TH/MM3 Mean Platelet Volume 9.5 FL 8.4 FL Laboratory Tests Test 03/25/17 03/26/17 03/26/17 03/26/17 22:04 04:07 09:00 15:40 Sodium Level 139 MEQ/L 138 MEQ/L 136 MEQ/L 139 MEQ/L Potassium Level 3.7 MEQ/L 3.7 MEQ/L 3.8 MEQ/L 3.8 MEQ/L Chloride Level 100 MEQ/L 100 MEQ/L 99 MEQ/L 101 MEQ/L Carbon Dioxide Level 27.1 MEQ/L 25.7 MEQ/L 25.5 MEQ/L 26.5 MEQ/L Anion Gap 12 MEQ/L 12 MEQ/L 12 MEQ/L 12 MEQ/L Blood Urea Nitrogen 94 MG/DL 98 MG/DL 95 MG/DL 102 MG/DL Creatinine 2.54 MG/DL 2.59 MG/DL 2.63 MG/DL 2.81 MG/DL Estimat Glomerular Filtration 25 ML/MIN 25 ML/MIN 24 ML/MIN 23 ML/MIN Rate Random Glucose 265 MG/DL 349 MG/DL 379 MG/DL 352 MG/DL Calcium Level 8.2 MG/DL 8.3 MG/DL 8.1 MG/DL 8.1 MG/DL Magnesium Level 1.9 MG/DL 2.3 MG/DL 2.3 MG/DL 2.2 MG/DL Phosphorus Level 4.4 MG/DL Total Bilirubin 1.3 MG/DL Direct Bilirubin 0.5 MG/DL Indirect Bilirubin 0.8 MG/DL Aspartate Amino Transf 20 U/L (AST/SGOT) Alanine Aminotransferase 18 U/L (ALT/SGPT) Alkaline Phosphatase 166 U/L Total Protein 6.8 GM/DL Albumin 2.6 GM/DL Test 03/26/17 03/27/17 03/27/17 22:18 04:10 14:00 Sodium Level 138 MEQ/L 139 MEQ/L 138 MEQ/L Potassium Level 3.8 MEQ/L 3.7 MEQ/L 3.9 MEQ/L Chloride Level 102 MEQ/L 101 MEQ/L 102 MEQ/L Carbon Dioxide Level 26.3 MEQ/L 27.1 MEQ/L 26.7 MEQ/L Anion Gap 10 MEQ/L 11 MEQ/L 9 MEQ/L Blood Urea Nitrogen 112 MG/DL 115 MG/DL 127 MG/DL Creatinine 2.80 MG/DL 2.75 MG/DL 2.80 MG/DL Estimat Glomerular Filtration 23 ML/MIN 23 ML/MIN 23 ML/MIN Rate Random Glucose 322 MG/DL 269 MG/DL 278 MG/DL Calcium Level 8.1 MG/DL 8.2 MG/DL 8.2 MG/DL Magnesium Level 2.1 MG/DL 2.1 MG/DL 2.0 MG/DL Phosphorus Level 4.5 MG/DL Total Bilirubin 0.9 MG/DL Direct Bilirubin 0.3 MG/DL Indirect Bilirubin 0.6 MG/DL Aspartate Amino Transf 21 U/L (AST/SGOT) Alanine Aminotransferase 15 U/L (ALT/SGPT) Alkaline Phosphatase 142 U/L Total Protein 6.9 GM/DL Albumin 2.6 GM/DL Imaging Last Impressions Abdomen Ultrasound 03/22/172122 Signed Impressions: Service Date/Time: Wednesday, March 22, 2017 08:14 - CONCLUSION: 1. Mild diffusely heterogeneous transplant liver echotexture with small amount of volume loss. No definitive evidence for portal venous gas or significant pneumobilia by ultrasound exam. However, examination was not specifically tailored for extended interrogation of the hepatic vasculature. 2. No sonographic evidence for intra-or extrahepatic ductal dilatation. 3. Trace ascites and small bilateral pleural effusions. Everton Cruz MD Chest X-Ray 03/22/17 Signed Impressions: Service Date/Time: Wednesday, March 22, 2017 02:37 - CONCLUSION: Infiltrate in the left lung inferiorly. Left subclavian Central line in good position. Tubes and catheter is in good position. Valerio Jerome MD Chest CT 03/22/17 Signed Impressions: Service Date/Time: Wednesday, March 22, 2017 15:37 - CONCLUSION: There is ascites and bilateral pleural effusion and worsening left lung consolidation. Indu Cunningham MD Abdomen/Pelvis CT 03/22/17 Signed Impressions: Service Date/Time: Wednesday, March 22, 2017 15:40 - CONCLUSION: Increase in ascites and mesenteric congestion since the prior exam. Indu Cunningham MD Abdomen X-Ray 03/22/17 Signed Impressions: Service Date/Time: Wednesday, March 22, 2017 07:00 - CONCLUSION: No findings characteristic of perforation. Nasogastric tube coiled within the fundus of the stomach. Emilio Snow MD Head CT 03/21/17 Signed Impressions: Service Date/Time: Tuesday, March 21, 2017 23:27 - CONCLUSION: Normal examination. Valerio Jerome MD Physical Exam CONSTITUTIONAL/GENERAL: This is an adequately nourished patient, in no apparent distress. TUBES/LINES/DRAINS: SKIN: + mild jaundice, rashes, or lesions. Skin temperature appropriate.Non diaphoretic. EYES: Pupils reactive . + minimal scleral icterus. No injection or drainage. Fundi not examined. NECK: Trachea midline. CARDIOVASCULAR: Regular rate and rhythm without murmurs, gallops, or rubs. No JVD. Periphery is poorly perfused RESPIRATORY/CHEST: Symmetric, respirations. Clear to auscultation. Breath sounds equal bilaterally. No wheezes, rales, or rhonchi. GASTROINTESTINAL: Abdomen soft, no reaction to palpation, + mildly-to- moderately distended. No hepato-splenomegaly, or palpable masses. No guarding. Bowel sounds present. Incontinent of loose brown stool GENITOURINARY: Without palpable bladder distension. Mcpherson catheter in place with clear yellow urine MUSCULOSKELETAL: Extremities without clubbing, + increasing edema no cyanosis . No mottling or clubbing. NEUROLOGICAL: sedated withdrawls not opening eyes not following commnads PSYCHIATRIC: Unable to assess Assessment & Plan Remarks Sepsis, septic shock, Acinetobacter chávez S clinically improved Source is likley bacteremiic gram negative PNA 2/2 Acinetobacter : though no growth on clx, Gstain was with GNBs LLL PNA , gram negative ? acinetobacter Acinetobacter bacteremia Acute VDRF ARF on CKD: no e/o interst nephritis - worsening UOP Immunosuppressed, sp liver transplant Critically ill, stable improved leukocytosis REC's:cont Amp/sulbactam, levaquine other option cefepime, fortaz; will avoid Rocephin in liver transplant pt 2 /2 cholestatic risks fu WBC rechk urine eos, fu blood clx chk stool for C.diff dw Celestina Branch MD Mar 27, 2017 17:34
[2017-03-27] MEDS: INSULIN DETEMIR 100 UNITS/ML VIAL SQ SCH (20:57)
[2017-03-27] MEDS: RESP: ALBUTEROL 2.5 MG/IPRATROPIUM 0.5 MG NEB (SCH) NEB (21:03)
[2017-03-28] VITALS (22 sets, daily range): BP systolic 82–180; BP diastolic 52–118; PULSE 62–131; RESP 15; TEMP 97.1–98.6; O2SAT 95–100
[2017-03-28 00:29] LABS: C. DIFF EPI 027 PRESUMPTIVE POSITIVE (NEGATIVE); C. DIFF TOXIN PCR POSITIVE (NEGATIVE)
[2017-03-28] MEDS: DILTIAZEM HCL 30 MG TAB PO SCH ×2 (01:03→06:00)
[2017-03-28] MEDS: HYDROCORTISONE SOD SUCCINATE 100 MG VIAL IV PUSH SCH ×2 (01:03→12:57)
[2017-03-28] MEDS: FUROSEMIDE 40 MG/4 ML VIAL IV PUSH SCH (04:00)
[2017-03-28] MEDS: HIGH DOSE INSULIN NOVOLIN REGULAR SUPPLEMENTAL SCALE SQ SCH ×6 (04:00→20:00)
[2017-03-28] MEDS: CHLORHEXIDINE GLUCONATE 2 % 1 PACK (2 CLOTHS) TOP SCH (04:00)
[2017-03-28] MEDS: AMPICILLIN-SULBACTAM INJ 3 GM in SODIUM CHLORIDE 0.9% INJ 100 ML IV SCH ×4 (04:00→22:09)
[2017-03-28 05:43] LABS: MEAN CELL VOLUME 84.8 FL (80.0-100.0); PLATELET COUNT 69 TH/MM3 (150-450); RED BLOOD COUNT 2.84 MIL/MM3 (4.50-5.90); RED CELL DISTRIBUTION WIDTH 16.2 % (11.6-17.2); WHITE BLOOD COUNT 16.6 TH/MM3 (4.0-11.0)
[2017-03-28 05:47] LABS: REVIEW FLAG FINAL
[2017-03-28] MEDS: LEVOFLOXACIN 750 MG PREMIX INJ 150 ML IV SCH (06:00)
[2017-03-28 06:14] LABS: BICARBONATE 25.7 MEQ/L (21.0-32.0); POTASSIUM 3.6 MEQ/L (3.5-5.1)
[2017-03-28 06:16] LABS: INDIRECT BILIRUBIN 0.3 MG/DL (0.0-0.8); TOTAL BILIRUBIN ADULT 0.6 MG/DL (0.2-1.0)
[2017-03-28] MEDS: ALBUMIN HUMAN 25% 25 GM/100 ML BAGP IV SCH ×2 (06:47→17:21)
[2017-03-28] MEDS ORDERED: POTASSIUM CHLOR 40 MEQ PREMIX 100 ML IV ONE (07:45)
--- NOTE | 2017-03-28 07:52 | HHI.CCPN ---
Subjective Remarks/Hospital Course Hospital Course: 67-year-old male with past medical history of primary sclerosing cholangitis with orthotopic liver transplant at [facility] in 2001, hypertension, atrial fibrillation status post ablation, hyperlipidemia, diabetes mellitus who presents to [facility] emergency department with altered mental status, fever, urinary incontinence. He was brought in by his . She states that this morning he was doing well and participated with home health physical therapy. When his returned home this evening she found him lethargic and minimally responsive. He had a cup full of mucus and when she inquired about it he stated that he had vomited. He refused ambulance transport. He had a temperature of 103 upon arrival to the emergency department. His states he told ED staff that he had experienced dysuria starting today. He has h/o BPH and UTI in the past. He has chronic low back pain. He denies headache or neck stiffness. His states he returned to his baseline mental status while in the ED and was conversant with her. He had no focal weakness and no witnessed seizure. His ED workup demonstrated U/a with moderate bacteria, 13 WBC, 2 RBC. White blood cell count was 14 with 9% bands, hemoglobin 10.5, platelets 135, AST 45, ALT 31, alkaline phosphatase 172, PT 12.3, INR 1.1 . Creatinine was 2.32 (baseline about 1.6-2), BUN 73, sodium 132 , potassium 5.2, bicarbonate 17 His initial lactic acid was 1.6. He was given Zosyn and 3 L NS bolus and admitted to the hospitalist service. He was complaining of chronic back pain and was anxious/agitated so was given Ativan 0.5 mg IV (chronically on Xanax). ED physician Dr. Orozco was called in because he became unresponsive and he was hypopneic with inadequate respirations. Sats were in the 60s. He complained to his that he could not see. He was hypotensive in 70s and post-intubation BP dropped to 60s/40s and [facility] was called. CVL was placed and he was started on levophed and vasopressin. He is awake on vent and answering questions yes/no. Subjective: 03/22: patient in refractory distributive shock. I evaluated the patient multiple times throughout the day beginning around 0600 and at frequent intervals. Patient remains acidotic on maximal vasopressor therapy. I had discussions with Dr. Anaya with ID, cultures are growing out Acinetobacter. abx changed to tobra, vanc, meropenem, levaquin, unasyn. continued ivf resuscitation throughout the day guided by frequent IVC and cardiac echo. formal echo with grossly preserved LV function and mild RV dysfunction. but IVC continued to be collapsable. acute renal failure worsening and acidosis severe. started on bicarb drip. repeat CT abd/pelvis performed. I personally transported patient down to CT scanner given how severely unstable the patient was. Discussed with general surgery and interval CT scan is necessary to eval for intra-abdominal source of sepsis. interval CT without change. most likely Acinetobacter pneumonia with overwhelming septic shock. discussed with at length multiple times today regarding his life-threatening infection and his high risk of mortality. 03/23: vasopressors weaning down. patient waking up, following commands. still persistently acidotic, in multiorgan failure. renal dysfunction persists and oliguric. acinetobacter sensitivities not resulted. 03/24: off vasopressors. clinically beginning to improve. Acinetobacter is pansensitive. oliguria persists, but Cr stable and no current indication for acute HD. 03/25: went into afib RVR yesterday. given mgso4 and started aggressive forced diuresis with lasix drip at 20mg/hr. converted spontaneously back to NSR after only about 2 hours. This AM net -2.4L/24h. continues to make 200cc/hr uop. hemodynamics stable. very low-dose norepinephrine requirement. Cr stable, though RAN persists. 03/26: remains in afib, intermittently RVR. on diltiazem drip. Cr worse. uop declining. appears intravascularly dry. stopped lasix drip. wbc uptrending, but still appears nontoxic. 03/27 Afebrile, WBC 16.8 from 22k. Afib converted to sinus rhythm in 50s, discontinuing cardizem 5 mg/hr that is running. Creatinine steady at 2.75 ( previoulsy 2.8 <--2.81). UOP was in 70s this morning, now down to 50 cc/hr and 30 cc/hr. Positive fluid balance last 24 hours. Now CI 2.1 SVV 7, SVI 33. Glucose poorly controlled in 200s to 300s despite high does insulin sliding scale. Off vasopressors since this morning. Subjective: 03/28 C diff positive. Started vancomycin po overnight. Tolerating tube feeds. A fib RVR in 130s this morning and initially hypotensive when went into Afib and levophed started but quickly weaned off. Restarting cardizem drip. BUN increased but creatinine relatively unchanged. UOP better with lasix yesterday and now edema slightly improved. Wean hydrocortisone. Glucose better after initiation of detemir but still 210. Objective Vital Signs Date Time Temp Pulse Resp B/P Pulse Ox O2 Delivery O2 Flow Rate FiO2 03/28/17 06:00 65 03/28/17 04:21 99 35 03/28/17 04:00 97.7 15 109/65 116/59 Intake and Output 03/27/17 03/27/17 03/28/17 08:00 16:00 00:00 Intake Total 986 ml 1249 ml 828 ml Output Total 479 ml 1514 ml 815 ml Balance 507 ml -265 ml 13 ml Result Diagram: 03/28/17 0451 03/28/17 0451 Objective Remarks Drips: Propofol 11 micrograms per KG per minute Fentanyl 200 mcg per hour GENERAL: Chronically ill-appearing 67-year-old male who is orotracheally intubated. SKIN: Warm and dry. HEAD: Atraumatic. Normocephalic. EYES: Pupils equal and round, 2 mm and reactive bilaterally. No scleral icterus. No injection or drainage. ENT: Mucous membranes moist NECK: Trachea midline. No apparent JVD. CARDIOVASCULAR: Distant heart sounds, tachycardic rate, irregularly irregular rhythm RESPIRATORY:Coarse breath sounds in lower lung malhotra, diminished in dependent region. No wheezes or Rales GASTROINTESTINAL: Abdomen overall soft, non-tender, nondistended. no guarding. Bowel sounds present. Dignishield in place with no stool in tubing : Mcpherson in place with light yellow urine output. Mild scrotal edema, improved. MUSCULOSKELETAL: There is muscular atrophy of intrinsics of bilateral hands. Extremities without clubbing, cyanosis. No obvious deformities. Dependent edema and elbows of bilateral upper extremities. There is some trace pedal edema. Overall extremity edema is improved compared with yesterday. NEUROLOGICAL: Eyes open and makes eye contact. Nods and shakes had to question. Follows commands by squeezing hands and releasing bilaterally. To command moves feet bilaterally and weakly flexes hips. A/P Assessment and Plan Assessment: 67yM s/p OLTx in 2001 now with resolving septic shock secondary to Acinetobacter bacteremia and pneumonia. NEURO: Vision change Acute metabolic encephalopathy- resolving. Peripheral neuropathy Patient reported to that he could not see before intubation. ?secondary to profound hypotension and hypoperfusion. Pupils reactive, unable to assess vision currently due to intubation and clinical condition. CT brain negative. Obtained Ammonia level -->28 EEG 03/22: severe slowing, no ictal focus. Fentanyl drip for analgosedation, propofol goal RASS -2. Daily sedation vacation Hold Neurontin 300 mg by mouth 3 times a day. Hold Xanax RESP: Acute hypoxic and hypercarpenic respiratory failure- History of tobacco abuse Acute healthcare associated left lower lobe pneumonia Ventilator bundle, hob @ 30 degrees, wean fio2 for spo2 > 90% Duoneb every 6 hours. Albuterol every [address] chest - dense consolidation of LLL with air bronchograms. Bronchoscopy with BAL lingula 03/22 SBT today when A fib stabilized. Tolerated CPAP 10/5 35% for 2 hours. CXR this morning with improvement in LLL consolidation. CV: Septic shock with multiorgan failure- History of atrial fibrillation status post ablation , A fib RVR History of hypertension Hyperlipidemia Back in A fib RVR. Increased cardizem to 60 q6 and resumed cardizem drip. Not good candidate to resume Sotolol with creatinine clearance hovering at 40. Avoiding amiodarone due to interaction with prograaf. Evaluated by Dr. Lovell who has recommended further increase cardizem to 90 q6. Phenylephrine as needed for hypotension. Initial troponin 0.03, mild increase to 0.06 is likely related to sepsis. Echo from 01/23/17 - +LVH, EF 60-65%. No regional wall motion abnormalities. Left atrial dilation. Echo 03/22- preserved LV function, mild RV dysfunction. collapsable IVC. Hold norvasc, atorvastatin, spironolactone. 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 Patient has been followed by Dr. Mallory as outpatient. He has not been able to follow closely with [facility] due to financial reasons. states he has [facility]f [facility] at [facility] and [facility] [place] [facility]. She states he has been referred to [facility] for possible repeat transplant due to plasma cell hepatitis but has not had followup appointment yet. Per GI notes, patient was refused for liver transplant at [facility] due to prior association with [place]. prograf level 5-->7-->7.7-->5. continue prograf at 1mg daily 03/24. Goal prograf level 5-7. Level 03/26 is 5.4. repeat is pending. CT abd/pelvis non-contrast - pneumobilia, fecal impaction, no free air or fluid. repeat CT abd pelvis: no change. Patient known to Dr. Mallory. GI has signed off for now, reconsult if needed. On Xifaxan and lactulose. Glucerna 1.5 @ 60/hr. UROLOGY: BPH Hold finasteride and tamsulosin due to intermittent hypotension. FEN/RENAL: RAN- severe, persistent. Hypokalemia Hypomagnesemia Lactic Acidosis- resolved. Anion-gap metabolic acidosis- improving. Mcpherson in place. Monitor intake and output hourly. Monitor electrolytes and replace as indicated. Urine eos negative 03/24. ID: Septic shock- improving LLL HCAP- Acinetobacter UTI Pneumobilia Leukocytosis Bandemia C difficile diarrhea Continue Unasyn and Levaquin For Acinetobacter pneumonia (pansensitive) Vancomycin 250 po qid 03/28 ID following: Dr. Anaya. HEME: Chronic anemia Acute on chronic Thrombocytopenia Monitor CBC. No heparin since admission so low enough suspicion for HIT that would not workup for this acute on chronic thrombocytopenia. . Thrombocytopenia likely secondary to liver dysfunction, sepsis. Perform extremity u/s in event this is consumptive from DVT. ENDO: Diabetes mellitus Monitor Glucose every 4 hours. High dose insulin sliding scale q4 hours. Glucerna 30 subcut q12. Wean Hydrocortisone 50 IV q12 and continue to taper. PROPH: SCDs. Holding heparin for DVTprophylaxis due to downtrending platelets, f/u extremity u/s Protonix 40 mg IV daily for stress ulcer prophylaxis. ACCESS: Left subclavian central venous line placed 03/21 #9. R radial art line 03/21 #9 CCT 45 minutes Full code Leelee Tinajero MD Mar 28, 2017 07:52
[2017-03-28] MEDS ORDERED: DILTIAZEM HCL 25 MG/5 ML VIAL IVP ONE (08:00)
[2017-03-28] MEDS: RESP: ALBUTEROL 2.5 MG/IPRATROPIUM 0.5 MG NEB (SCH) NEB ×3 (08:09→19:35)
[2017-03-28] MEDS ORDERED: TERBUTALINE INJ 1 MG/ML AMP SQ PRN (08:30)
[2017-03-28] MEDS ORDERED: PHENYLEPHRINE INJ 160 MG in DEXTROSE 5% IN WATE 500 ML INJ 484 ML IV SCH ×2 (08:30)
[2017-03-28] MEDS: PANTOPRAZOLE SODIUM 40 MG VIAL IV SCH ×2 (08:44→20:40)
[2017-03-28] MEDS: VANCOMYCIN 500 MG VIAL (FOR ORAL USE ONLY) PO SCH ×4 (08:44→20:39)
[2017-03-28] MEDS: CHOLECALCIFEROL (VIT D3) 1000 UNIT TAB PO SCH ×2 (08:45→20:39)
[2017-03-28] MEDS: RIFAXIMIN 550 MG TAB OG-TUBE SCH ×2 (08:45→20:39)
[2017-03-28] MEDS: FOLIC ACID 1 MG TAB PO SCH ×2 (08:45→20:39)
[2017-03-28] MEDS: TACROLIMUS 1 MG CAP PO SCH (08:45)
[2017-03-28] MEDS: SODIUM CHLORIDE 0.9% FLUSH 10 ML FLUSH IV FLUSH SCH ×2 (08:45→20:40)
[2017-03-28] MEDS: INSULIN DETEMIR 100 UNITS/ML VIAL SQ SCH ×2 (08:46→20:44)
[2017-03-28] MEDS: LACTULOSE SYRUP 20 GM/30 ML CUP PO SCH ×2 (08:47→20:39)
[2017-03-28] MEDS: DOCUSATE SODIUM 50 MG/SENNA 8.6 MG TAB PO SCH ×2 (08:47→20:40)
[2017-03-28] MEDS: CHLORHEXIDINE 0.12% (ORAL KIT) 15 ML CUP MT SCH ×2 (08:48→20:40)
[2017-03-28] MEDS: NOREPINEPHRINE-DEXTROSE DRIP 250 ML IV SCH (08:49)
--- NOTE | 2017-03-28 08:56 | RADRPT ---
EXAM DATE/TIME: 03/28/2017 08:15 [place] COMPARISON: CHEST SINGLE AP, March 22, 2017, 2:37. INDICATIONS : Respiratory failure MEDICAL HISTORY : Cardiovascular disease. Hypertension. Cirrhosis. Diabetes. Hep B and C. SURGICAL HISTORY : Liver transplant. ENCOUNTER: Subsequent ACUITY: 4 - 6 days PAIN SCORE: Non-responsive. LOCATION: chest FINDINGS: Improving lung aeration with decreasing basilar air space disease is noted. Small bilateral effusions remain evident. Support devices are in stable position. Heart and mediastinal structures are stable. CONCLUSION: Improving appearance of the chest with better aeration and decreasing basilar airspace disease especi ally on the left. Emilio Snow MD on March 28, 2017 at 8:53 Board Certified Radiologist. This report was verified electronically.
[2017-03-28] MEDS: DILTIAZEM INJ 125 MG in SODIUM CHLORIDE 0.9% INJ 100 ML IV SCH ×2 (09:13→18:33)
[2017-03-28] MEDS: PROPOFOL 1000 MG/100 ML INJ 100 ML IV SCH (11:00)
--- NOTE | 2017-03-28 11:08 | PD.CARD.PN ---
Subjective Subjective Remarks Pt remains intubated, had to go back on dilt ggt. Objective Medications Administered Medications Medications (Trade) Dose Ordered Sig/Herb Route PRN Reason Start Time Stop Time Status Last Admin Dose Admin Fentanyl Citrate (fentaNYL DRIP) 250 ml @ 0 mls/hr TITRATE IV 03/21/17 21:15 03/27/17 13:42 Sodium Chloride (NS Flush) 2 ml UNSCH PRN IV FLUSH FLUSH AFTER USING IV ACCESS 03/21/17 22:00 03/26/17 14:37 Sodium Chloride (NS Flush) 2 ml BID IV FLUSH 03/22/17 09:00 03/28/17 08:45 Chlorhexidine Gluconate (Chlorhexidine 2% Cloth) Taper DAILY@04 TOP 03/22/17 04:00 03/18/18 03:59 03/26/17 03:30 Senna/Docusate Sodium (Pretty-Colace) 1 tab BID PO 03/22/17 09:00 03/27/17 09:26 Magnesium Hydroxide (Milk Of Magnesia Liq) 30 ml Q12H PRN PO MILD - MODERATE CONSTIPATION 03/21/17 22:00 03/24/17 08:12 Sennosides (Senokot) 17.2 mg Q12H PRN PO MODERATE - SEVERE CONSTIPATION 03/21/17 22:00 03/24/17 08:12 Cholecalciferol (Vitamin D3) 1,000 units BID PO 03/22/17 09:00 03/28/17 08:45 Folic Acid (Folate) 1 mg BID PO 03/22/17 09:00 03/28/17 08:45 Chlorhexidine Gluconate 15 ml 15 ml BID@08,20 MT 03/22/17 08:00 03/28/17 08:48 Norepinephrine Bitartrate 250 ml @ 0 mls/hr TITRATE IV 03/22/17 00:15 03/28/17 08:49 Levofloxacin/ Dextrose (Levaquin 750 Mg Premix Inj) 150 ml @ 100 mls/hr Q48H IV 03/24/17 06:00 03/28/17 06:00 Insulin Human Regular (NovoLIN R SUPPLEMENTAL SCALE) 1 Q4H SQ 03/23/17 12:00 03/28/17 08:00 Pantoprazole Sodium (Protonix Inj) 40 mg BID IV 03/23/17 21:00 03/28/17 08:44 Rifaximin (Xifaxan) 550 mg BID OG-TUBE 03/23/17 21:00 03/28/17 08:45 Lactulose 30 ml 30 ml BID PO 03/23/17 21:00 03/27/17 20:58 Propofol (Diprivan 1000 Mg/100ml Inj) 100 ml @ 0 mls/hr TITRATE IV 03/23/17 13:45 03/28/17 11:00 Tacrolimus 1 mg 1 mg DAILY PO 03/25/17 09:00 03/28/17 08:45 Ampicillin Sodium/ Sulbactam Sodium/ Sodium Chloride (Unasyn Inj/NS Inj) 100 ml @ 200 mls/hr Q6H IV 03/27/17 10:00 03/28/17 08:47 Insulin Detemir (Levemir Inj) 30 units Q12HR SQ 03/27/17 21:00 03/28/17 08:46 Albumin Human (Albumin 25% Inj) 25 gm Q12H IV 03/27/17 16:00 03/28/17 06:47 Furosemide (Lasix Inj) 40 mg Q12H IV PUSH 03/27/17 16:00 Hold 03/28/17 04:00 Vancomycin HCl 250 mg 250 mg QID PO 03/28/17 09:00 03/28/17 08:44 Potassium Chloride 100 ml @ 25 mls/hr ONCE ONCE IV 03/28/17 07:45 03/28/17 11:44 03/28/17 08:48 Diltiazem HCl/ Sodium Chloride (Cardizem Inj/NS Inj) 125 ml @ 0 mls/hr TITRATE IV 03/28/17 09:00 03/28/17 09:13 Vital Signs / I&O Vital Signs Date Time Temp Pulse Resp B/P Pulse Ox O2 Delivery O2 Flow Rate FiO2 03/28/17 10:15 35 03/28/17 10:15 35 03/28/17 08:09 100 35 03/28/17 08:00 35 03/28/17 06:00 65 03/28/17 04:21 99 35 03/28/17 04:00 35 03/28/17 04:00 97.7 65 15 109/65 99 116/59 03/28/17 04:00 68 115/69 125/63 03/28/17 04:00 65 03/28/17 02:47 62 94/52 101/56 03/28/17 02:00 64 03/28/17 00:32 98 35 03/28/17 00:00 97.1 70 15 144/75 98 148/72 03/28/17 00:00 35 03/28/17 00:00 70 03/27/17 22:54 68 115/69 125/63 03/27/17 22:00 74 03/27/17 21:03 100 35 03/27/17 20:00 96.7 61 102/62 97 113/55 03/27/17 20:00 35 03/27/17 20:00 61 03/27/17 18:00 61 03/27/17 16:00 35 03/27/17 16:00 59 03/27/17 16:00 97.7 59 122/74 100 139/69 03/27/17 16:00 59 122/74 139/69 03/27/17 15:56 99 35 03/27/17 14:00 62 03/27/17 12:00 56 03/27/17 12:00 35 03/27/17 12:00 56 93/60 100/61 03/27/17 12:00 97.2 56 15 93/60 99 100/61 I/O 03/27/17 03/27/17 03/27/17 03/28/17 03/28/17 03/28/17 07:00 15:00 23:00 07:00 15:00 23:00 Intake Total 1106 ml 1249 ml 828 ml 976 ml Output Total 499 ml 1539 ml 750 ml 560 ml 700 ml Balance 607 ml -290 ml 78 ml 416 ml -700 ml Intake IV Total 520 ml 683 ml 275 ml 500 ml Tube Feeding 486 ml 326 ml 433 ml 476 ml Tube Irrigant 0 ml 120 ml Other 100 ml 240 ml Output Urine Total 498 ml 1539 ml 750 ml 560 ml 700 ml Stool Total 1 ml # Bowel Movements 2 1 2 Physical Exam GENERAL: Intubated, mildly agitated CARDIOVASCULAR: Regular rate and irregular rhythm without murmurs, gallops, or rubs. RESPIRATORY: Clear to auscultation. Breath sounds equal bilaterally. No wheezes , rales, or rhonchi. GASTROINTESTINAL: Abdomen soft, non-tender, nondistended. Normal, active bowel sounds MUSCULOSKELETAL: Extremities without clubbing, cyanosis, or edema. NEURO: mildly sedated Laboratory Laboratory Tests Test 03/27/17 03/27/17 03/28/17 03/28/17 14:00 17:30 04:51 09:00 Prothrombin Time 12.0 SEC Prothromb Time International 1.1 RATIO Ratio Activated Partial 31.5 SEC Thromboplast Time Sodium Level 138 MEQ/L 140 MEQ/L Potassium Level 3.9 MEQ/L 3.6 MEQ/L Chloride Level 102 MEQ/L 102 MEQ/L Carbon Dioxide Level 26.7 MEQ/L 25.7 MEQ/L Anion Gap 9 MEQ/L 12 MEQ/L Blood Urea Nitrogen 127 MG/DL 136 MG/DL Creatinine 2.80 MG/DL 2.71 MG/DL Estimat Glomerular Filtration 23 ML/MIN 24 ML/MIN Rate Random Glucose 278 MG/DL 211 MG/DL Calcium Level 8.2 MG/DL 7.8 MG/DL Magnesium Level 2.0 MG/DL 2.0 MG/DL Stool C. difficile Toxin (PCR) POSITIVE Stl C. difficile Toxin PRESUMPTIVE Epiderm 027 POSITIVE White Blood Count 16.6 TH/MM3 Red Blood Count 2.84 MIL/MM3 Hemoglobin 7.9 GM/DL Hematocrit 24.0 % Mean Corpuscular Volume 84.8 FL Mean Corpuscular Hemoglobin 28.0 PG Mean Corpuscular Hemoglobin 33.0 % Concent Red Cell Distribution Width 16.2 % Platelet Count 69 TH/MM3 Mean Platelet Volume 9.0 FL Phosphorus Level 5.5 MG/DL Total Bilirubin 0.6 MG/DL Direct Bilirubin 0.3 MG/DL Indirect Bilirubin 0.3 MG/DL Aspartate Amino Transf 23 U/L (AST/SGOT) Alanine Aminotransferase 17 U/L (ALT/SGPT) Alkaline Phosphatase 119 U/L Total Protein 5.8 GM/DL Albumin 2.3 GM/DL Ammonia 30 MCMOL/L Imaging Last Impressions Chest X-Ray 03/28/17 0000 Signed Impressions: Service Date/Time: Tuesday, March 28, 2017 08:15 - CONCLUSION: Improving appearance of the chest with better aeration and decreasing basilar airspace disease especially on the left. Emilio Snow MD Abdomen Ultrasound 03/22/172122 Signed Impressions: Service Date/Time: Wednesday, March 22, 2017 08:14 - CONCLUSION: 1. Mild diffusely heterogeneous transplant liver echotexture with small amount of volume loss. No definitive evidence for portal venous gas or significant pneumobilia by ultrasound exam. However, examination was not specifically tailored for extended interrogation of the hepatic vasculature. 2. No sonographic evidence for intra-or extrahepatic ductal dilatation. 3. Trace ascites and small bilateral pleural effusions. Everton Cruz MD Chest CT 03/22/17 0000 Signed Impressions: Service Date/Time: Wednesday, March 22, 2017 15:37 - CONCLUSION: There is ascites and bilateral pleural effusion and worsening left lung consolidation. Indu Cunningham MD Abdomen/Pelvis CT 03/22/17 Signed Impressions: Service Date/Time: Wednesday, March 22, 2017 15:40 - CONCLUSION: Increase in ascites and mesenteric congestion since the prior exam. Indu Cunningham MD Abdomen X-Ray 03/22/17 Signed Impressions: Service Date/Time: Wednesday, March 22, 2017 07:00 - CONCLUSION: No findings characteristic of perforation. Nasogastric tube coiled within the fundus of the stomach. Emilio Snow MD Head CT 03/21/17 Signed Impressions: Service Date/Time: Tuesday, March 21, 2017 23:27 - CONCLUSION: Normal examination. Valerio Jerome MD Last Impressions Chest X-Ray 03/28/17 Signed Impressions: Service Date/Time: Tuesday, March 28, 2017 08:15 - CONCLUSION: Improving appearance of the chest with better aeration and decreasing basilar airspace disease especially on the left. Emilio Snow MD Abdomen Ultrasound 03/22/172122 Signed Impressions: Service Date/Time: Wednesday, March 22, 2017 08:14 - CONCLUSION: 1. Mild diffusely heterogeneous transplant liver echotexture with small amount of volume loss. No definitive evidence for portal venous gas or significant pneumobilia by ultrasound exam. However, examination was not specifically tailored for extended interrogation of the hepatic vasculature. 2. No sonographic evidence for intra-or extrahepatic ductal dilatation. 3. Trace ascites and small bilateral pleural effusions. Everton Cruz MD Chest CT 03/22/17 Signed Impressions: Service Date/Time: Wednesday, March 22, 2017 15:37 - CONCLUSION: There is ascites and bilateral pleural effusion and worsening left lung consolidation. Indu Cunningham MD Abdomen/Pelvis CT 03/22/17 0000 Signed Impressions: Service Date/Time: Wednesday, March 22, 2017 15:40 - CONCLUSION: Increase in ascites and mesenteric congestion since the prior exam. Indu Cunningham MD Abdomen X-Ray 03/22/17 Signed Impressions: Service Date/Time: Wednesday, March 22, 2017 07:00 - CONCLUSION: No findings characteristic of perforation. Nasogastric tube coiled within the fundus of the stomach. Emilio Snow MD Head CT 03/21/17 0000 Signed Impressions: Service Date/Time: Tuesday, March 21, 2017 23:27 - CONCLUSION: Normal examination. Valerio Jerome MD Assessment and Plan Problem List: (1) Atrial fibrillation with RVR Assessment and Plan: Continue to wean off dilt ggt as possible; bp elevated currently so also increased oral cardizem; pt isn't an anticoagulation candidate due to GI bleeding; he has declined watchman device. Mitchell Lovell MD Mar 28, 2017 11:08
[2017-03-28] MEDS: DILTIAZEM HCL 90 MG TAB PO SCH ×2 (12:00→17:22)
[2017-03-28] MEDS ORDERED: DILTIAZEM HCL 60 MG TAB PO SCH (12:00)
--- NOTE | 2017-03-28 12:46 | HHI.GIFU ---
Subjective Remarks Pt on vent, seems agitated (Faith Fierro FLUTE GRINDER) Objective Vitals I&O Vital Signs Date Time Temp Pulse Resp B/P Pulse Ox O2 Delivery O2 Flow Rate FiO2 03/28/17 12:25 35 03/28/17 12:00 98.0 79 180/118 95 139/86 03/28/17 12:00 35 03/28/17 11:49 99 35 03/28/17 10:15 35 03/28/17 10:15 35 03/28/17 10:00 71 03/28/17 10:00 71 123/72 132/59 03/28/17 08:09 100 35 03/28/17 08:00 98.0 124 82/62 100 97/55 03/28/17 08:00 124 82/62 97/55 03/28/17 08:00 35 03/28/17 08:00 124 03/28/17 06:00 65 03/28/17 04:21 99 35 03/28/17 04:00 35 03/28/17 04:00 97.7 65 15 109/65 99 116/59 03/28/17 04:00 68 115/69 125/63 03/28/17 04:00 65 03/28/17 02:47 62 94/52 101/56 03/28/17 02:00 64 03/28/17 00:32 98 35 03/28/17 00:00 97.1 70 15 144/75 98 148/72 03/28/17 00:00 35 03/28/17 00:00 70 03/27/17 22:54 68 115/69 125/63 03/27/17 22:00 74 03/27/17 21:03 100 35 03/27/17 20:00 96.7 61 102/62 97 113/55 03/27/17 20:00 35 03/27/17 20:00 61 03/27/17 18:00 61 03/27/17 16:00 35 03/27/17 16:00 59 03/27/17 16:00 97.7 59 122/74 100 139/69 03/27/17 16:00 59 122/74 139/69 03/27/17 15:56 99 35 03/27/17 14:00 62 I/O 7/15/17 03/27/17 03/27/17 03/28/17 03/28/17 03/28/17 07:00 15:00 23:00 07:00 15:00 23:00 Intake Total 1106 ml 1249 ml 828 ml 976 ml Output Total 499 ml 1539 ml 750 ml 560 ml 1125 ml Balance 607 ml -290 ml 78 ml 416 ml -1125 ml Intake IV Total 520 ml 683 ml 275 ml 500 ml Tube Feeding 486 ml 326 ml 433 ml 476 ml Tube Irrigant 0 ml 120 ml Other 100 ml 240 ml Output Urine Total 498 ml 1539 ml 750 ml 560 ml 1125 ml Stool Total 1 ml # Bowel Movements 2 1 2 Laboratory Laboratory Tests Test 03/27/17 03/27/17 03/28/17 03/28/17 14:00 17:30 04:51 09:00 Prothrombin Time 12.0 Prothromb Time International 1.1 Ratio Activated Partial 31.5 Thromboplast Time Sodium Level 138 140 Potassium Level 3.9 3.6 Chloride Level 102 102 Carbon Dioxide Level 26.7 25.7 Anion Gap 9 12 Blood Urea Nitrogen 127 136 Creatinine 2.80 2.71 Estimat Glomerular Filtration 23 24 Rate Random Glucose 278 211 Calcium Level 8.2 7.8 Magnesium Level 2.0 2.0 Tacrolimus (Prograf) Level 5.2 Stool C. difficile Toxin (PCR) POSITIVE Stl C. difficile Toxin PRESUMPTIVE Epiderm 027 POSITIVE White Blood Count 16.6 Red Blood Count 2.84 Hemoglobin 7.9 Hematocrit 24.0 Mean Corpuscular Volume 84.8 Mean Corpuscular Hemoglobin 28.0 Mean Corpuscular Hemoglobin 33.0 Concent Red Cell Distribution Width 16.2 Platelet Count 69 Mean Platelet Volume 9.0 Phosphorus Level 5.5 Total Bilirubin 0.6 Direct Bilirubin 0.3 Indirect Bilirubin 0.3 Aspartate Amino Transf 23 (AST/SGOT) Alanine Aminotransferase 17 (ALT/SGPT) Alkaline Phosphatase 119 Total Protein 5.8 Albumin 2.3 Ammonia 30 Date/Time Procedure Status Source Growth 03/24/17 00:50 Stool Occult Blood (MARSHAL) - Final Complete Stool Stool HEMOCCULT NEGATIVE Imaging Last Impressions Chest X-Ray 03/28/17 0000 Signed Impressions: Service Date/Time: Tuesday, March 28, 2017 08:15 - CONCLUSION: Improving appearance of the chest with better aeration and decreasing basilar airspace disease especially on the left. Emilio Snow MD Abdomen Ultrasound 03/22/172122 Signed Impressions: Service Date/Time: Wednesday, March 22, 2017 08:14 - CONCLUSION: 1. Mild diffusely heterogeneous transplant liver echotexture with small amount of volume loss. No definitive evidence for portal venous gas or significant pneumobilia by ultrasound exam. However, examination was not specifically tailored for extended interrogation of the hepatic vasculature. 2. No sonographic evidence for intra-or extrahepatic ductal dilatation. 3. Trace ascites and small bilateral pleural effusions. Everton Cruz MD Chest CT 03/22/17 Signed Impressions: Service Date/Time: Wednesday, March 22, 2017 15:37 - CONCLUSION: There is ascites and bilateral pleural effusion and worsening left lung consolidation. Indu Cunningham MD Abdomen/Pelvis CT 03/22/17 Signed Impressions: Service Date/Time: Wednesday, March 22, 2017 15:40 - CONCLUSION: Increase in ascites and mesenteric congestion since the prior exam. Indu Cunningham MD Abdomen X-Ray 03/22/17 Signed Impressions: Service Date/Time: Wednesday, March 22, 2017 07:00 - CONCLUSION: No findings characteristic of perforation. Nasogastric tube coiled within the fundus of the stomach. Emilio Snow MD Head CT 03/21/17 Signed Impressions: Service Date/Time: Tuesday, March 21, 2017 23:27 - CONCLUSION: Normal examination. Valerio Jerome MD Physical Exam HEENT: Normocephalic; atraumatic CHEST: CTA, diminished, OETT to vent. CARDIAC: SB ABDOMEN: Soft, nondistended, nontender; hepatosplenomegaly; bowel sounds faint EXTREMITIES: Generalized edema. SKIN: Generalized pallor STRAP SEWER: agitated. 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 He has not been seen at the [facility] and 5-10 years secondary to financial issues. Unfortunately, he cannot make an appointment to follow up at [facility] until he makes a payment of $8,000 for an outstanding balance. The tells me charles there is no way she can make this payment and that she will have to "deal with that later." We did refer patient to [facility], but patient was declined secondary to having his transplant done at [facility] and they said that he would need to follow up at [facility]. 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 Similar histologic findings can also be seen in plasma cell rich rejection. Correlation with recent BILLY, ASMA, and serum IgG level is recommended. Typical features of acute cellular rejection are not seen. There is no evidence of chronic biliary tract disease or active steatohepatitis. Labs from January 28, 2017 revealed IgG total 3887, IgG1 2359, IgG3 57, IgG4 > 300.00. BILLY negative, ASMA negative. MELD 16. Spoke to Tiana Lo at [facility] to update on patient's condition and to see if he would able to be seen at their facility ([facility] has declined patient per our outpatient referral records). Per Tiana Lo, patient will not be able to be seen or make recommendations at [facility] until they have contacted Central Appointment Scheduling and settles outstanding balance. They cannot make recommendations , as they have not seen this patient since 2007 and would need to start the whole process over again and cannot do this until the outstanding balance is settled. LFTs stable - Constipation, Fecal impaction. Abdomen/Pelvis CT (03/21/17)-----> Moderate stool throughout the colon. Small moderate of the bell hepatis I believe is biliary air. Other solid organs are unremarkable. Dense infiltrate left lower lobe within the lung. (+) BM. Lactulose with BID dosing. - C DIFF - pos. on vanc, ID following - Anemia with drop in Hgb. No obvious active bleeding. Hemoccult neg. H/H stable. Protonix to BID - Coagulopathy. PT 18.1, INR 1.6. - Sepsis with multisystem failure. Pt with bandemia, UTI/PNA. Bronchial washings with no growth 48 hours, mycobacterial culture pending, fungal culture pending urine negative for legionella and streptococcus, urine cx (-), bcx no growth Acinetobacter Baumannii/Haemol, Levaquin, Ampicillicin. On Levophed. CT as above. - Resp. Failure, HCAP. Abx, Nebs. Vent per CCM. - RAN with electrolyte abnormalities. Worsening, Creat 2.71 decreasing UOP per RN - AMS. EEG with diffusely low recording, could be medication effect as the patient was on fentanyl. No hemisphere asymmetries are noted. No epileptiform or seizure activity seen. - Hx HTN, hyperlipidemia, BPH, per attending. PLAN: - Cont. Prograf - On Lasix Gtt per CCM - Cont. Lactulose - Cont. Xifaxan - Cont. PPI - Cont. Abx per ID recommendations- Levaquin, ampicillin - Monitor CBC, CMP, PT/INR - Supportive care - CCM following - ID following - Further recommendations to follow based on results of above - Of note, patient has been declined by [facility] secondary to having original transplant at [facility] - [facility] will not see patient or make recommendations until they have contacted the Central Appointment Office to resolve outstanding balance- aware. - Pt seen and examined by Dr. Cabrales and myself and this note is written on his behalf (Faith Fierro) Physician Comments patient was seen and examined, agree with above note, C diff positive yesterday , he was started on vancomycin orally, (Mary Cabrales MD) Faith Fierro Mar 28, 2017 12:46 Mary Cabrales MD Mar 28, 2017 13:09
[2017-03-28] MEDS: fentaNYL DRIP 250 ML IV SCH (17:21)
[2017-03-29] VITALS (33 sets, daily range): BP systolic 78–141; BP diastolic 51–75; PULSE 72–126; RESP 15–16; TEMP 98–99.2; O2SAT 99–100
[2017-03-29] MEDS: HYDROCORTISONE SOD SUCCINATE 100 MG VIAL IV PUSH SCH ×2 (02:57→13:57)
[2017-03-29] MEDS: CHLORHEXIDINE GLUCONATE 2 % 1 PACK (2 CLOTHS) TOP SCH (04:00)
[2017-03-29] MEDS: HIGH DOSE INSULIN NOVOLIN REGULAR SUPPLEMENTAL SCALE SQ SCH ×6 (04:00→20:00)
[2017-03-29] MEDS: fentaNYL DRIP 250 ML IV SCH ×2 (06:10→17:30)
[2017-03-29] MEDS: DILTIAZEM INJ 125 MG in SODIUM CHLORIDE 0.9% INJ 100 ML IV SCH ×3 (06:10→22:40)
[2017-03-29] MEDS: PROPOFOL 1000 MG/100 ML INJ 100 ML IV SCH ×3 (06:10→17:30)
[2017-03-29] MEDS: ALBUMIN HUMAN 25% 25 GM/100 ML BAGP IV SCH (06:11)
[2017-03-29] MEDS: AMPICILLIN-SULBACTAM INJ 3 GM in SODIUM CHLORIDE 0.9% INJ 100 ML IV SCH ×4 (06:11→22:39)
[2017-03-29] MEDS: DILTIAZEM HCL 90 MG TAB PO SCH ×4 (06:11→18:07)
[2017-03-29 06:25] LABS: HEMATOCRIT 25.9 % (39.0-51.0); MEAN CELL VOLUME 84.9 FL (80.0-100.0); MEAN CORPUSCULAR HEMOGLOBIN 27.7 PG (27.0-34.0); MEAN CORPUSCULAR HGB CONC 32.6 % (32.0-36.0); PLATELET COUNT 140 TH/MM3 (150-450); RED BLOOD COUNT 3.05 MIL/MM3 (4.50-5.90); RED CELL DISTRIBUTION WIDTH 16.2 % (11.6-17.2); WHITE BLOOD COUNT 35.1 TH/MM3 (4.0-11.0)
[2017-03-29 06:26] LABS: REVIEW FLAG FINAL
[2017-03-29 06:49] LABS: BICARBONATE 24.6 MEQ/L (21.0-32.0); POTASSIUM 3.3 MEQ/L (3.5-5.1)
[2017-03-29 06:51] LABS: INDIRECT BILIRUBIN 0.5 MG/DL (0.0-0.8); TOTAL BILIRUBIN ADULT 0.7 MG/DL (0.2-1.0)
[2017-03-29] MEDS: CHLORHEXIDINE 0.12% (ORAL KIT) 15 ML CUP MT SCH ×2 (08:34→21:26)
[2017-03-29] MEDS: RESP: ALBUTEROL 2.5 MG/IPRATROPIUM 0.5 MG NEB (SCH) NEB ×3 (08:36→21:07)
[2017-03-29] MEDS: LACTULOSE SYRUP 20 GM/30 ML CUP PO SCH ×2 (09:20→21:26)
[2017-03-29] MEDS: VANCOMYCIN 500 MG VIAL (FOR ORAL USE ONLY) PO SCH ×3 (09:20→18:07)
[2017-03-29] MEDS: RIFAXIMIN 550 MG TAB OG-TUBE SCH ×2 (09:20→21:27)
[2017-03-29] MEDS: PANTOPRAZOLE SODIUM 40 MG VIAL IV SCH ×2 (09:20→21:28)
[2017-03-29] MEDS: TACROLIMUS 1 MG CAP PO SCH (09:21)
[2017-03-29] MEDS: FOLIC ACID 1 MG TAB PO SCH ×2 (09:21→21:26)
[2017-03-29] MEDS: CHOLECALCIFEROL (VIT D3) 1000 UNIT TAB PO SCH ×2 (09:21→21:26)
[2017-03-29] MEDS: DOCUSATE SODIUM 50 MG/SENNA 8.6 MG TAB PO SCH ×2 (09:21→21:27)
[2017-03-29] MEDS: INSULIN DETEMIR 100 UNITS/ML VIAL SQ SCH ×2 (09:24→21:30)
--- NOTE | 2017-03-29 09:26 | PD.CARD.PN ---
Subjective Subjective Remarks No clinical changes, still having difficulty weaning off vent, rates a bit high in afib Objective Medications Administered Medications Medications (Trade) Dose Ordered Sig/Herb Route PRN Reason Start Time Stop Time Status Last Admin Dose Admin Fentanyl Citrate (fentaNYL DRIP) 250 ml @ 0 mls/hr TITRATE IV 03/21/17 21:15 03/29/17 06:10 Sodium Chloride (NS Flush) 2 ml UNSCH PRN IV FLUSH FLUSH AFTER USING IV ACCESS 03/21/17 22:00 03/26/17 14:37 Sodium Chloride (NS Flush) 2 ml BID IV FLUSH 03/22/17 09:00 03/28/17 20:40 Chlorhexidine Gluconate (Chlorhexidine 2% Cloth) Taper DAILY@04 TOP 03/22/17 04:00 03/18/18 03:59 03/26/17 03:30 Senna/Docusate Sodium (Pretty-Colace) 1 tab BID PO 03/22/17 09:00 03/27/17 09:26 Magnesium Hydroxide (Milk Of Magnesia Liq) 30 ml Q12H PRN PO MILD - MODERATE CONSTIPATION 03/21/17 22:00 03/24/17 08:12 Sennosides (Senokot) 17.2 mg Q12H PRN PO MODERATE - SEVERE CONSTIPATION 03/21/17 22:00 03/24/17 08:12 Cholecalciferol (Vitamin D3) 1,000 units BID PO 03/22/17 09:00 03/28/17 20:39 Folic Acid (Folate) 1 mg BID PO 03/22/17 09:00 03/28/17 20:39 Chlorhexidine Gluconate 15 ml 15 ml BID@08,20 MT 03/22/17 08:00 03/29/17 08:34 Levofloxacin/ Dextrose (Levaquin 750 Mg Premix Inj) 150 ml @ 100 mls/hr Q48H IV 03/24/17 06:00 03/28/17 06:00 Insulin Human Regular (NovoLIN R SUPPLEMENTAL SCALE) 1 Q4H SQ 03/23/17 12:00 03/28/17 16:00 Pantoprazole Sodium (Protonix Inj) 40 mg BID IV 03/23/17 21:00 03/28/17 20:40 Rifaximin (Xifaxan) 550 mg BID OG-TUBE 03/23/17 21:00 03/28/17 20:39 Lactulose 30 ml 30 ml BID PO 03/23/17 21:00 03/28/17 20:39 Propofol (Diprivan 1000 Mg/100ml Inj) 100 ml @ 0 mls/hr TITRATE IV 03/23/17 13:45 03/29/17 06:10 Tacrolimus 1 mg 1 mg DAILY PO 03/25/17 09:00 03/28/17 08:45 Ampicillin Sodium/ Sulbactam Sodium/ Sodium Chloride (Unasyn Inj/NS Inj) 100 ml @ 200 mls/hr Q6H IV 03/27/17 10:00 03/29/17 06:11 Insulin Detemir (Levemir Inj) 30 units Q12HR SQ 03/27/17 21:00 03/28/17 20:44 Albumin Human (Albumin 25% Inj) 25 gm Q12H IV 03/27/17 16:00 03/29/17 06:11 Furosemide (Lasix Inj) 40 mg Q12H IV PUSH 03/27/17 16:00 Hold 03/28/17 04:00 Vancomycin HCl (VANCOMYCIN for oral use only) 250 mg QID PO 03/28/17 09:00 03/28/17 20:39 Hydrocortisone Sodium Succinate 50 mg 50 mg Q12H IV PUSH 03/28/17 14:00 03/29/17 02:57 Diltiazem HCl 125 mg/Sodium Chloride 125 ml @ 0 mls/hr TITRATE IV 03/28/17 09:00 03/29/17 06:10 Phenylephrine HCl/ Dextrose (Neosynephrine Inj/D5W 500 ml Inj) 500 ml @ 0 mls/hr TITRATE IV 03/28/17 08:30 03/28/17 20:41 Diltiazem HCl (Cardizem) 90 mg Q6HR PO 03/28/17 12:00 03/29/17 06:11 Vital Signs / I&O Vital Signs Date Time Temp Pulse Resp B/P Pulse Ox O2 Delivery O2 Flow Rate FiO2 03/29/17 08:40 99 35 03/29/17 06:00 122 03/29/17 06:00 122 78/51 91/54 03/29/17 04:55 99 35 03/29/17 04:00 94 99/55 98/59 7/17/17 04:00 35 03/29/17 04:00 94 03/29/17 04:00 98.6 94 99/55 100 98/59 03/29/17 02:00 126 03/29/17 02:00 126 117/75 125/68 17/17 01:12 100 35 03/29/17 00:07 115 105/58 118/65 03/29/17 00:00 93 03/29/17 00:00 35 03/29/17 00:00 98.0 93 105/58 100 109/61 03/28/17 22:25 100 35 03/28/17 22:02 127 123/76 124/73 1617 22:01 127 03/28/17 20:26 92 128/62 130/66 03/28/17 20:00 98.6 92 125/64 100 132/69 17 20:00 35 03/28/17 20:00 92 03/28/17 19:35 100 35 17 18:00 92 87/53 17 18:00 92 16/17 16:00 35 1617 16:00 123 17 16:00 123 155/79 148/73 16/17 16:00 98.6 123 155/79 95 148/73 16/17 15:43 97 35 1617 14:00 131 1617 14:00 131 171/78 152/75 16/17 12:25 35 03/28/17 12:00 79 180/118 139/86 16/17 12:00 98.0 79 180/118 95 139/86 16/17 12:00 79 16 12:00 35 1617 11:49 99 35 16/17 10:15 35 16/17 10:15 35 16/17 10:00 71 16 10:00 71 123/72 132/59 I/O 16/17 16/17 7/16/17 7//17 7/03/29/ 07:00 15:00 23:00 07:00 15:00 23:00 Intake Total 976 ml 1094 ml 893 ml 919 ml Output Total 560 ml 3250 ml 710 ml 495 ml Balance 416 ml -2156 ml 183 ml 424 ml Intake IV Total 500 ml 628 ml 320 ml 452 ml Tube Feeding 476 ml 346 ml 573 ml 467 ml Other 120 ml Output Urine Total 560 ml 3250 ml 635 ml 345 ml Stool Total 75 ml 150 ml # Bowel Movements 2 Physical Exam GENERAL: Intubated, mildly agitated CARDIOVASCULAR: Rapid rate and irregular rhythm without murmurs, gallops, or rubs. RESPIRATORY: Clear to auscultation. Breath sounds equal bilaterally. No wheezes , rales, or rhonchi. GASTROINTESTINAL: Abdomen soft, non-tender, nondistended. Normal, active bowel sounds MUSCULOSKELETAL: Extremities without clubbing, cyanosis, or edema. NEURO: mildly sedated Laboratory Laboratory Tests Test 03/29/17 05:49 White Blood Count 35.1 TH/MM3 Red Blood Count 3.05 MIL/MM3 Hemoglobin 8.4 GM/DL Hematocrit 25.9 % Mean Corpuscular Volume 84.9 FL Mean Corpuscular Hemoglobin 27.7 PG Mean Corpuscular Hemoglobin 32.6 % Concent Red Cell Distribution Width 16.2 % Platelet Count 140 TH/MM3 Mean Platelet Volume 8.6 FL Sodium Level 143 MEQ/L Potassium Level 3.3 MEQ/L Chloride Level 105 MEQ/L Carbon Dioxide Level 24.6 MEQ/L Anion Gap 13 MEQ/L Blood Urea Nitrogen 136 MG/DL Creatinine 2.62 MG/DL Estimat Glomerular Filtration 25 ML/MIN Rate Random Glucose 112 MG/DL Calcium Level 8.0 MG/DL Phosphorus Level 5.1 MG/DL Total Bilirubin 0.7 MG/DL Direct Bilirubin 0.2 MG/DL Indirect Bilirubin 0.5 MG/DL Aspartate Amino Transf 33 U/L (AST/SGOT) Alanine Aminotransferase 19 U/L (ALT/SGPT) Alkaline Phosphatase 125 U/L Total Protein 6.3 GM/DL Albumin 2.5 GM/DL Imaging Last Impressions Chest X-Ray 03/28/17 0000 Signed Impressions: Service Date/Time: Tuesday, March 28, 2017 08:15 - CONCLUSION: Improving appearance of the chest with better aeration and decreasing basilar airspace disease especially on the left. Emilio Snow MD Abdomen Ultrasound 03/22/172122 Signed Impressions: Service Date/Time: Wednesday, March 22, 2017 08:14 - CONCLUSION: 1. Mild diffusely heterogeneous transplant liver echotexture with small amount of volume loss. No definitive evidence for portal venous gas or significant pneumobilia by ultrasound exam. However, examination was not specifically tailored for extended interrogation of the hepatic vasculature. 2. No sonographic evidence for intra-or extrahepatic ductal dilatation. 3. Trace ascites and small bilateral pleural effusions. Everton Cruz MD Chest CT 03/22/17 0000 Signed Impressions: Service Date/Time: Wednesday, March 22, 2017 15:37 - CONCLUSION: There is ascites and bilateral pleural effusion and worsening left lung consolidation. Indu Cunningham MD Abdomen/Pelvis CT 03/22/17 0000 Signed Impressions: Service Date/Time: Wednesday, March 22, 2017 15:40 - CONCLUSION: Increase in ascites and mesenteric congestion since the prior exam. Indu Cunningham MD Abdomen X-Ray 03/22/17 Signed Impressions: Service Date/Time: Wednesday, March 22, 2017 07:00 - CONCLUSION: No findings characteristic of perforation. Nasogastric tube coiled within the fundus of the stomach. Emilio Snow MD Head CT 03/21/17 0000 Signed Impressions: Service Date/Time: Tuesday, March 21, 2017 23:27 - CONCLUSION: Normal examination. Valerio Jerome MD Assessment and Plan Problem List: (1) Atrial fibrillation with RVR Assessment and Plan: Dilt ggt back up to 15; bp not really high enough to add more oral meds; cr up so can't give digonin; pt isn't an anticoagulation candidate due to GI bleeding; he has declined watchman device. Mitchell Lovell MD Mar 29, 2017 09:26
[2017-03-29] MEDS: SODIUM CHLORIDE 0.9% FLUSH 10 ML FLUSH IV FLUSH SCH ×2 (09:28→21:26)
--- NOTE | 2017-03-29 10:05 | HHI.PR ---
Subjective Subjective Notes Intubated/Sedated Objective Vitals/I&O Vital Signs Date Time Temp Pulse Resp B/P Pulse Ox O2 Delivery O2 Flow Rate FiO2 03/29/17 08:40 99 35 03/29/17 06:00 122 03/29/17 06:00 78/51 91/54 03/29/17 04:00 98.6 03/28/17 04:00 15 Labs Laboratory Tests Test 03/29/17 05:49 White Blood Count 35.1 Red Blood Count 3.05 Hemoglobin 8.4 Hematocrit 25.9 Mean Corpuscular Volume 84.9 Mean Corpuscular Hemoglobin 27.7 Mean Corpuscular Hemoglobin 32.6 Concent Red Cell Distribution Width 16.2 Platelet Count 140 Mean Platelet Volume 8.6 Sodium Level 143 Potassium Level 3.3 Chloride Level 105 Carbon Dioxide Level 24.6 Anion Gap 13 Blood Urea Nitrogen 136 Creatinine 2.62 Estimat Glomerular Filtration 25 Rate Random Glucose 112 Calcium Level 8.0 Phosphorus Level 5.1 Total Bilirubin 0.7 Direct Bilirubin 0.2 Indirect Bilirubin 0.5 Aspartate Amino Transf 33 (AST/SGOT) Alanine Aminotransferase 19 (ALT/SGPT) Alkaline Phosphatase 125 Total Protein 6.3 Albumin 2.5 Cardiovascular: Regular Lungs: Upper airway course sound Abdomen: Non-distended, Non-tender Extremities: No edema A/P Assessment and Plan 67 year old male in septic shock; question of mesenteric ischemia -Abdominal exam benign -Low suspicion of any acute etiology in abdomen -ID following -CCM following -GS will follow peripherally; please call with questions Attending Statement as above pt seen at bedside low likely allan of abdominal pathology given benign exams and clinical presentation Attestation The exam, history, and the medical decision-making described in the above note were completed with the assistance of the mid-level provider. I reviewed and agree with the findings presented. I attest that I had a [id number] encounter with the patient on the same day, and personally performed and documented my assessment and findings in the medical record. Mya Rapp Mar 29, 2017 10:04 Luis Conklin MD Apr 06, 2017 10:32
--- NOTE | 2017-03-29 11:57 | HHI.CCPN ---
Subjective Remarks/Hospital Course 67-year-old male with past medical history of primary sclerosing cholangitis with orthotopic liver transplant at [facility] in 2001, hypertension, atrial fibrillation status post ablation, hyperlipidemia, diabetes mellitus who presents to [facility] emergency department with altered mental status, fever, urinary incontinence. He was brought in by his . She states that this morning he was doing well and participated with home health physical therapy. When his returned home this evening she found him lethargic and minimally responsive. He had a cup full of mucus and when she inquired about it he stated that he had vomited. He refused ambulance transport. He had a temperature of 103 upon arrival to the emergency department. His states he told ED staff that he had experienced dysuria starting today. He has h/o BPH and UTI in the past. He has chronic low back pain. He denies headache or neck stiffness. His states he returned to his baseline mental status while in the ED and was conversant with her. He had no focal weakness and no witnessed seizure. His ED workup demonstrated U/a with moderate bacteria, 13 WBC, 2 RBC. White blood cell count was 14 with 9% bands, hemoglobin 10.5, platelets 135, AST 45, ALT 31, alkaline phosphatase 172, PT 12.3, INR 1.1 . Creatinine was 2.32 (baseline about 1.6-2), BUN 73, sodium 132 , potassium 5.2, bicarbonate 17 His initial lactic acid was 1.6. He was given Zosyn and 3 L NS bolus and admitted to the hospitalist service. He was complaining of chronic back pain and was anxious/agitated so was given Ativan 0.5 mg IV (chronically on Xanax). ED physician Dr. Orozco was called in because he became unresponsive and he was hypopneic with inadequate respirations. Sats were in the 60s. He complained to his that he could not see. He was hypotensive in 70s and post-intubation BP dropped to 60s/40s and [facility] was called. CVL was placed and he was started on levophed and vasopressin. He is awake on vent and answering questions yes/no. 03/22: patient in refractory distributive shock. I evaluated the patient multiple times throughout the day beginning around 0600 and at frequent intervals. Patient remains acidotic on maximal vasopressor therapy. I had discussions with Dr. Anaya with ID, cultures are growing out Acinetobacter. abx changed to tobra, vanc, meropenem, levaquin, unasyn. continued ivf resuscitation throughout the day guided by frequent IVC and cardiac echo. formal echo with grossly preserved LV function and mild RV dysfunction. but IVC continued to be collapsable. acute renal failure worsening and acidosis severe. started on bicarb drip. repeat CT abd/pelvis performed. I personally transported patient down to CT scanner given how severely unstable the patient was. Discussed with general surgery and interval CT scan is necessary to eval for intra-abdominal source of sepsis. interval CT without change. most likely Acinetobacter pneumonia with overwhelming septic shock. discussed with at length multiple times today regarding his life-threatening infection and his high risk of mortality. 03/23: vasopressors weaning down. patient waking up, following commands. still persistently acidotic, in multiorgan failure. renal dysfunction persists and oliguric. acinetobacter sensitivities not resulted. 03/24: off vasopressors. clinically beginning to improve. Acinetobacter is pansensitive. oliguria persists, but Cr stable and no current indication for acute HD. 03/25: went into afib RVR yesterday. given mgso4 and started aggressive forced diuresis with lasix drip at 20mg/hr. converted spontaneously back to NSR after only about 2 hours. This AM net -2.4L/24h. continues to make 200cc/hr uop. hemodynamics stable. very low-dose norepinephrine requirement. Cr stable, though RAN persists. 03/26: remains in afib, intermittently RVR. on diltiazem drip. Cr worse. uop declining. appears intravascularly dry. stopped lasix drip. wbc uptrending, but still appears nontoxic. 03/27 Afebrile, WBC 16.8 from 22k. Afib converted to sinus rhythm in 50s, discontinuing cardizem 5 mg/hr that is running. Creatinine steady at 2.75 ( previoulsy 2.8 <--2.81). UOP was in 70s this morning, now down to 50 cc/hr and 30 cc/hr. Positive fluid balance last 24 hours. Now CI 2.1 SVV 7, SVI 33. Glucose poorly controlled in 200s to 300s despite high does insulin sliding scale. Off vasopressors since this morning. 03/28 C diff positive. Started vancomycin po overnight. Tolerating tube feeds. A fib RVR in 130s this morning and initially hypotensive when went into Afib and levophed started but quickly weaned off. Restarting cardizem drip. BUN increased but creatinine relatively unchanged. UOP better with lasix yesterday and now edema slightly improved. Wean hydrocortisone. Glucose better after initiation of detemir but still 210. Subjective: 03/29: Afebrile. Intermittently A. fib with RVR currently normal sinus rhythm. -4000 cc urine output has 24 hours. Arousable and intermittently following commands. Objective Vital Signs Date Time Temp Pulse Resp B/P Pulse Ox O2 Delivery O2 Flow Rate FiO2 03/29/17 10:00 72 03/29/17 10:00 97/59 107/57 03/29/17 09:25 45 03/29/17 08:40 99 03/29/17 08:00 98.7 15 Intake and Output 03/28/17 03/28/17 03/29/17 08:00 16:00 00:00 Intake Total 976 ml 1094 ml 893 ml Output Total 735 ml 3085 ml 720 ml Balance 241 ml -1991 ml 173 ml Result Diagram: 03/29/17 0549 03/29/17 0549 Imaging Last Impressions Chest X-Ray 03/28/17 0000 Signed Impressions: Service Date/Time: Tuesday, March 28, 2017 08:15 - CONCLUSION: Improving appearance of the chest with better aeration and decreasing basilar airspace disease especially on the left. Emilio Snow MD Abdomen Ultrasound 03/22/173 Signed Impressions: Service Date/Time: Wednesday, March 22, 2017 08:14 - CONCLUSION: 1. Mild diffusely heterogeneous transplant liver echotexture with small amount of volume loss. No definitive evidence for portal venous gas or significant pneumobilia by ultrasound exam. However, examination was not specifically tailored for extended interrogation of the hepatic vasculature. 2. No sonographic evidence for intra-or extrahepatic ductal dilatation. 3. Trace ascites and small bilateral pleural effusions. Everton Cruz MD Chest CT 03/22/17 0000 Signed Impressions: Service Date/Time: Wednesday, March 22, 2017 15:37 - CONCLUSION: There is ascites and bilateral pleural effusion and worsening left lung consolidation. Indu Cunningham MD Abdomen/Pelvis CT 03/22/17 0000 Signed Impressions: Service Date/Time: Wednesday, March 22, 2017 15:40 - CONCLUSION: Increase in ascites and mesenteric congestion since the prior exam. Indu Cunningham MD Abdomen X-Ray 03/22/17 0000 Signed Impressions: Service Date/Time: Wednesday, March 22, 2017 07:00 - CONCLUSION: No findings characteristic of perforation. Nasogastric tube coiled within the fundus of the stomach. Emilio Snow MD Head CT 03/21/17 0000 Signed Impressions: Service Date/Time: Tuesday, March 21, 2017 23:27 - CONCLUSION: Normal examination. Valerio Jerome MD Objective Remarks GENERAL: Chronically ill-appearing 67-year-old male , critically ill resting in bed SKIN: Warm and dry. Stage I sacral decubitus ulcer HEAD: Atraumatic. Normocephalic. EYES: Pupils equal and round, 2 mm and reactive bilaterally. No scleral icterus. No injection or drainage. ENT: Mucous membranes pink and moist. Oropharynx without erythema or exits. NECK: Trachea midline. No apparent JVD. CARDIOVASCULAR: RRR. S1, S2 no S4. Without murmur. RESPIRATORY:Coarse breath sounds in bilateral lower lung malhotra, diminished in dependent region. No wheezing appreciated GASTROINTESTINAL: Abdomen overall soft, non-tender, nondistended hypoactive bowel sounds are present. Dignishield in place with + stool in tubing : Mcpherson in place with light yellow urine output. Positive mild scrotal edema MUSCULOSKELETAL: There is muscular atrophy bilateral hands. Dependent edema and elbows of bilateral upper extremities. There is some trace pedal edema. NEUROLOGICAL: Eyes open and makes eye contact. Nods and shakes had to question. Follows commands by squeezing hands and releasing bilaterally. Wiggles toes bilaterally. Command A/P Assessment and Plan NEURO/PSYCH: Acute Vision change Acute metabolic encephalopathy- resolving. Peripheral neuropathy Chronic benzodiazepine use Chronic narcotic use Patient is currently on propofol at 12 mg/kg minutes/fentanyl drip at 50 g an hour for sedation/analgesia while intubated Goal of RA SS -2 Daily sedation vacation Per prior notes, patient reported to that he could not see before intubation. ?secondary to profound hypotension and hypoperfusion. Pupils reactive, nodding head peripherally to 1-[address] brain 03/21 revealed no acute intracranial findings Will obtain MRI brain when hemodynamically stable Obtained Ammonia level -->28 EEG 03/22: severe slowing, no epileptiform activity goal RASS -2. Daily sedation vacation Hold Neurontin 300 mg by mouth 3 times a day. Hold Xanax 0.5 mg every 8 hours when necessary Oxycodone 5 mg every 4 hours when necessary pain RESP: Acute hypoxic and hypercarpenic respiratory failure- History of tobacco abuse Acute healthcare associated left lower lobe pneumonia PRVC 16/560/0.9/5/50 Ventilator bundle Duoneb every 6 hours. Albuterol every [address] chest 03/21 - dense consolidation of LLL with air bronchograms. Bronchoscopy with BAL lingula 03/22 - no growth to date SBT and clinically indicated. Did not tolerate yesterday CXR 03/28 with improvement in LLL consolidation. CV: Septic shock with multi system organ failure- History of atrial fibrillation status post ablation currently intermittent A fib RVR History of hypertension Hyperlipidemia Evaluated by Dr. Lovell who has recommended further increase Cardizem to 90 q6. Maintain Cardizem drip at 15 mg an hour Phenylephrine currently at 30 mcg/m as needed to maintain map > 65 Initial troponin 0.03, mild increase to 0.06 is likely related to sepsis. Echo from 01/23/17 - +LVH, EF 60-65%. No regional wall motion abnormalities. Left atrial dilation. Echo 03/22- preserved LV function, mild RV dysfunction. collapsable IVC. Hold medications norvasc 10 mg daily for hypertension on vasopressors, atorvastatin 40 mg daily for dyslipidemia with elevated LFTs, spironolactone 25 mg daily with acute kidney injury. Not ideal care for resumption for sotalol 80 mg twice a day/home medication Received IV Lasix 40 mg IV twice a day nicely. This currently on hold. 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 difficile Hypoalbuminemia Patient currently Glucerna 1.5@60 cc an hour/currently Protonix for GI prophylaxis Patient has been followed by Dr. Mallory as outpatient. He has not been able to follow closely with [facility] due to financial reasons. states he has Prograf levels done at [facility] and [facility]. She states he has been referred to [facility] for possible repeat transplant due to plasma cell hepatitis but has not had followup appointment yet. Per GI notes, patient was refused for liver transplant at [facility] due to prior association with [facility]. Prograf level currently 5.2. Pending yesterday and today CT abd/pelvis 03/21non-contrast - pneumobilia, fecal impaction, no free air or fluid. repeat CT abd pelvis 03/22: no change. Patient known to Dr. Mallory. GI has signed off for now, reconsult if needed. On Xifaxan 550 twice a day and lactulose 30 cc twice a day. UROLOGY: BPH Hold Proscar 5 mill grams daily Flomax 0.4 mg daily in light of hypotension. Resume when clinically indicated Maintain Mcpherson catheter FEN/RENAL: Acute on chronic kidney injury Hypokalemia Hyperphosphatemia Monitor intake and output hourly. Monitor electrolytes and replace as indicated. Urine eos negative 03/24. Receiving 30 mEq potassium chloride IV 1 now. Recheck in 1800 hrs. Avoid nephrotoxic drugs We'll consult sludge filtration attendant. [facility]. Has a urologist however. ID: Septic shock- improving LLL HCAP- Acinetobacterbaummini bacteremia C difficile diarrhea Continue Unasyn and Levaquin For Acinetobacter pneumonia (pansensitive) Vancomycin 250 po qid 03/28 started for C. difficile 027 positive ID following: Dr. Anaya. HEME: Leukocytosis Chronic normocytic anemia Acute on chronic Thrombocytopenia Monitor CBC daily monitor trends. Preliminary negative bilateral upper and lower extreme Dopplers ENDO: Diabetes mellitus Hyperglycemia Levemir 30 subcut q12. Currently on sliding scale insulin/high regimen every 4 hours 30 units sliding scale past 24 hours Wean Hydrocortisone 50 IV q12 and continue to taper total 7 days therapy PROPH: SCDs. Holding heparin for DVTprophylaxis due to downtrending platelets Protonix 40 mg IV was daily for stress ulcer prophylaxis. ACCESS: Left subclavian central venous line placed 03/21 #10. R radial art line 03/21 #10 CCT 35 minutes Ru's with Juanito Avila MD Mar 29, 2017 11:57
--- NOTE | 2017-03-29 12:12 | RADRPT ---
EXAM DATE/TIME: 03/29/2017 10:40 [facility] COMPARISON: US LEG BILATERAL VENOUS DOPPLER, February 07, 2016, 11:25. INDICATIONS : Bilateral leg swelling. MEDICAL HISTORY : Congestive heart failure. Hypertension. Gastroesophageal reflux disease. Neuropathy. Ulcerative colit is. A-fib. Dyspnea. Kidney stones. Diabetes. Hepatitis B. Hepatitis C. Lumbar disc disease. Depress ion. Anxiety. MRSA. Cirrhosis. Cdiff. SURGICAL HISTORY : Liver transplant. Loop recorder. Cardiac ablation. ENCOUNTER: Initial ACUITY: 1 day PAIN SCORE: 0/10 LOCATION: Bilateral legs. TECHNIQUE: Venous ultrasound of the left and right leg was performed from the inguinal ligament to the proximal calf. Real-time, color Doppler and spectral tracing, compression and augmentation techniques were us ed. FINDINGS: RIGHT LEG: There is normal compressibility of the deep venous system from the inguinal region to the proximal ca lf. No echogenic clot is seen in the lumen of the common femoral, femoral, popliteal, and posterior tibial veins. There is a normal response of the venous system to proximal and distal augmentation an d respiration. LEFT LEG: There is normal compressibility of the deep venous system from the inguinal region to the proximal ca lf. No echogenic clot is seen in the lumen of the common femoral, femoral, popliteal, and posterior tibial veins. There is a normal response of the venous system to proximal and distal augmentation an d respiration. CONCLUSION: Normal examination. Valerio Jerome MD on March 29, 2017 at 12:09 Board Certified Radiologist. This report was verified electronically.
--- NOTE | 2017-03-29 12:44 | RADRPT ---
EXAM DATE/TIME: 03/29/2017 11:02 [facility] COMPARISON: No previous studies available for comparison. INDICATIONS : Bilateral arm swelling. MEDICAL HISTORY : Hypertension. Congestive heart failure. Gastroesophageal reflux disease. Neuropathy. Ulcerative colit is. A-fib. Dyspnea. Kidney stones. Diabetes. Hepatitis B. Hepatitis C. Lumbar disc disease. Depress ion. Anxiety. MRSA. Cirrhosis. C-Diff. SURGICAL HISTORY : Liver transplant. Loop recorder. Cardiac ablation. ENCOUNTER: Initial ACUITY: 1 day PAIN SCORE: 0/10 LOCATION: Bilateral arms. FINDINGS: Doppler ultrasound of both upper extremities was performed. There is a small amount of occlusive thr ombus in the left cephalic vein just distal to the antecubital fossa area. There is a small amount o f non-occlusive thrombus in the left basilic vein. The right is unremarkable. The left subclavian, left axillary veins are unremarkable as is the right brachial vein. Ulnar vein is unremarkable. Radial vein is unremarkable. CONCLUSION: Small amount of thrombus in the left cephalic vein and the left basilic vein. Right upper extremity is unremarkable . Valerio Jerome MD on March 29, 2017 at 12:26 Board Certified Radiologist. This report was verified electronically.
[2017-03-29] MEDS ORDERED: SODIUM CHLORIDE 0.9% IV-CENTRAL ONE (13:00)
[2017-03-29] MEDS ORDERED: POTASSIUM CHLORIDE IV-CENTRAL ONE (13:00)
--- NOTE | 2017-03-29 15:05 | PD.PROCEDR ---
Central Line Procedure REASON FOR PROCEDURE Central venous access PROCEDURE PERFORMED Central line placement: L subclavian central line CONSENT Informed consent for procedure was obtained. The risks and benefits of the procedure were discussed with family to include but limited to bleeding, clot formation, infection, and even . ANESTHESIA Local injection of 1% Lidocaine DESCRIPTION OF THE PROCEDURE The patient was placed in supine, mild Trendelenburg position. The area was exposed and cleansed with ChloraPrep, times two. Large sterile drape was used to cover the patient, with the site exposed, under sterile conditions including cap, face mask, sterile gown, and sterile gloves. On single attempt, the introducer needle was inserted with negative pressure in syringe and venous flash was obtained. The guide wire was then advanced without any restriction and the needle was removed. The dilator was used without any complications. Using Seldinger technique the 7F triple lumen 20 CM catheter was advanced over the guide wire to a depth of 17 centimeters. The guide wire was removed. All ports were aspirated with dark venous blood return and flushed easily with sterile saline. All ports were capped. Antibiotic disc was placed around central line at puncture site. The central line was secured to the skin with two interrupted 2.0 silk sutures. The area was bandaged with sterile see- through central line bandage. COMPLICATIONS: No apparent complications ESTIMATED BLOOD LOSS: Less than 1 cc. Madiha Banuelos MD Mar 29, 2017 15:05
--- NOTE | 2017-03-29 15:47 | RADRPT ---
EXAM DATE/TIME: 03/29/2017 15:10 [facility] COMPARISON: CHEST SINGLE AP, March 28, 2017, 8:15. INDICATIONS : Evaluate central line placement MEDICAL HISTORY : Cardiovascular disease. Hypertension. Cirrhosis. Diabetes. Hep B and C. SURGICAL HISTORY : Liver transplant. ENCOUNTER: Subsequent ACUITY: 4 - 6 days PAIN SCORE: Non-responsive. LOCATION: chest FINDINGS: A single view of the chest demonstrates the endotracheal tube, nasogastric tube and bilateral subclav hortencia central lines are all in good position. Small bilateral pleural effusions. Mild pulmonary vascula r congestion.. The cardiomediastinal contours are unremarkable. Osseous structures are intact. CONCLUSION: Tubes and catheters are in good position. Small bilateral pleural effusions with mild persistent pulm onary vascular congestion. Valerio Jerome MD on March 29, 2017 at 15:45 Board Certified Radiologist. This report was verified electronically.
--- NOTE | 2017-03-29 17:37 | HHI.GIFU ---
Subjective Remarks Lightly sedated on vent. No distress. Nods appropriately and follows commands. at bedside-updated on condition (Kenisha Lopez CASPER) Objective Vitals I&O Vital Signs Date Time Temp Pulse Resp B/P Pulse Ox O2 Delivery O2 Flow Rate FiO2 03/29/17 16:07 100 40 03/29/17 14:00 74 114/70 126/62 03/29/17 14:00 74 03/29/17 12:00 72 03/29/17 12:00 72 100/63 113/56 03/29/17 12:00 35 03/29/17 12:00 99.2 72 15 100/63 100 113/56 03/29/17 11:54 100 42 03/29/17 10:00 72 03/29/17 10:00 72 97/59 107/57 03/29/17 09:25 45 03/29/17 08:40 35 03/29/17 08:40 99 35 03/29/17 08:00 94 03/29/17 08:00 98.7 94 15 103/70 100 123/62 03/29/17 08:00 94 103/70 123/62 03/29/17 08:00 35 03/29/17 06:00 122 03/29/17 06:00 122 78/51 91/54 03/29/17 04:55 99 35 03/29/17 04:00 94 99/55 98/59 03/29/17 04:00 35 03/29/17 04:00 94 03/29/17 04:00 98.6 94 99/55 100 98/59 03/29/17 02:00 126 03/29/17 02:00 126 117/75 125/68 03/29/17 01:12 100 35 03/29/17 00:07 115 105/58 118/65 03/29/17 00:00 93 03/29/17 00:00 35 03/29/17 00:00 98.0 93 105/58 100 109/61 03/28/17 22:25 100 35 03/28/17 22:02 127 123/76 124/73 03/28/17 22:01 127 03/28/17 20:26 92 128/62 130/66 03/28/17 20:00 98.6 92 125/64 100 132/69 03/28/17 20:00 35 03/28/17 20:00 92 03/28/17 19:35 100 35 03/28/17 18:00 92 87/53 03/28/17 18:00 92 I/O 03/28/17 03/28/17 03/28/17 03/29/17 03/29/17 03/29/17 07:00 15:00 23:00 07:00 15:00 23:00 Intake Total 976 ml 1094 ml 893 ml 919 ml 951 ml Output Total 560 ml 3250 ml 710 ml 495 ml 400 ml Balance 416 ml -2156 ml 183 ml 424 ml 551 ml Intake IV Total 500 ml 628 ml 320 ml 452 ml 467 ml Tube Feeding 476 ml 346 ml 573 ml 467 ml 394 ml Other 120 ml 90 ml Output Urine Total 560 ml 3250 ml 635 ml 345 ml 300 ml Stool Total 75 ml 150 ml 100 ml # Bowel Movements 2 Laboratory Laboratory Tests Test 03/29/17 03/29/17 05:49 09:30 White Blood Count 35.1 Red Blood Count 3.05 Hemoglobin 8.4 Hematocrit 25.9 Mean Corpuscular Volume 84.9 Mean Corpuscular Hemoglobin 27.7 Mean Corpuscular Hemoglobin 32.6 Concent Red Cell Distribution Width 16.2 Platelet Count 140 Mean Platelet Volume 8.6 Sodium Level 143 Potassium Level 3.3 Chloride Level 105 Carbon Dioxide Level 24.6 Anion Gap 13 Blood Urea Nitrogen 136 Creatinine 2.62 Estimat Glomerular Filtration 25 Rate Random Glucose 112 Calcium Level 8.0 Phosphorus Level 5.1 Magnesium Level 1.9 Total Bilirubin 0.7 Direct Bilirubin 0.2 Indirect Bilirubin 0.5 Aspartate Amino Transf 33 (AST/SGOT) Alanine Aminotransferase 19 (ALT/SGPT) Alkaline Phosphatase 125 Total Protein 6.3 Albumin 2.5 Tacrolimus (Prograf) Level 3.3 Imaging Last Impressions Upper Extremity Ultrasound 03/29/17 0000 Signed Impressions: Service Date/Time: Wednesday, March 29, 2017 11:02 - CONCLUSION: Small amount of thrombus in the left cephalic vein and the left basilic vein. Right upper extremity is unremarkable . Valerio Jerome MD Lower Extremity Ultrasound 03/29/17 0000 Signed Impressions: Service Date/Time: Wednesday, March 29, 2017 10:40 - CONCLUSION: Normal examination. Valerio Jerome MD Chest X-Ray 03/29/17 0000 Signed Impressions: Service Date/Time: Wednesday, March 29, 2017 15:10 - CONCLUSION: Tubes and catheters are in good position. Small bilateral pleural effusions with mild persistent pulmonary vascular congestion. Valerio Jerome MD Abdomen Ultrasound 03/22/172122 Signed Impressions: Service Date/Time: Wednesday, March 22, 2017 08:14 - CONCLUSION: 1. Mild diffusely heterogeneous transplant liver echotexture with small amount of volume loss. No definitive evidence for portal venous gas or significant pneumobilia by ultrasound exam. However, examination was not specifically tailored for extended interrogation of the hepatic vasculature. 2. No sonographic evidence for intra-or extrahepatic ductal dilatation. 3. Trace ascites and small bilateral pleural effusions. Everton Cruz MD Chest CT 03/22/17 0000 Signed Impressions: Service Date/Time: Wednesday, March 22, 2017 15:37 - CONCLUSION: There is ascites and bilateral pleural effusion and worsening left lung consolidation. Indu Cunningham MD Abdomen/Pelvis CT 03/22/17 0000 Signed Impressions: Service Date/Time: Wednesday, March 22, 2017 15:40 - CONCLUSION: Increase in ascites and mesenteric congestion since the prior exam. Indu Cunningham MD Abdomen X-Ray 03/22/17 0000 Signed Impressions: Service Date/Time: Wednesday, March 22, 2017 07:00 - CONCLUSION: No findings characteristic of perforation. Nasogastric tube coiled within the fundus of the stomach. Emilio Snow MD Head CT 03/21/17 0000 Signed Impressions: Service Date/Time: Tuesday, March 21, 2017 23:27 - CONCLUSION: Normal examination. Valerio Jerome MD Physical Exam HEENT: Normocephalic; atraumatic CHEST: CTA, diminished, OETT to vent. CARDIAC: ST ABDOMEN: Soft, nondistended, nontender; hepatosplenomegaly; bowel sounds faint EXTREMITIES: Generalized edema. 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 He has not been seen at the [facility] and 5-10 years secondary to financial issues. Unfortunately, he cannot make an appointment to follow up at [facility] until he makes a payment of $8,000 for an outstanding balance. The tells me charles there is no way she can make this payment and that she will have to "deal with that later." We did refer patient to [facility], but patient was declined secondary to having his transplant done at [facility] and they said that he would need to follow up at [facility]. 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 Similar histologic findings can also be seen in plasma cell rich rejection. Correlation with recent BILLY, ASMA, and serum IgG level is recommended. Typical features of acute cellular rejection are not seen. There is no evidence of chronic biliary tract disease or active steatohepatitis. Labs from January 28, 2017 revealed IgG total 3887, IgG1 2359, IgG3 57, IgG4 > 300.00. BILLY negative, ASMA negative. MELD 16. Spoke to Tiana Lo at [facility] to update on patient's condition and to see if he would able to be seen at their facility ([facility] has declined patient per our outpatient referral records). Per Tiana Lo, patient will not be able to be seen or make recommendations at [facility] until they have contacted Central Appointment Scheduling and settles outstanding balance. They cannot make recommendations , as they have not seen this patient since 2007 and would need to start the whole process over again and cannot do this until the outstanding balance is settled. LFTs remain stable with T. Bili 0.7, AST 22, ALT 19, ALk Phosph 125. - CDiff colitis. WBC 35.1. 100cc this shift, 150cc last shift. Oral vanco. Of note, also on Ampicillin/levaquin for aceinetobacter baumanni/haemol. - Anemia with drop in Hgb. No obvious active bleeding. 8.4/25.9. Hemoccult neg. H/H stable. Protonix to BID - Coagulopathy. PT 12.0, INR 1.1. - Sepsis with multisystem failure. Pt with bandemia, UTI/PNA. Bronchial washings with no growth 48 hours, mycobacterial culture pending, fungal culture pending urine negative for legionella and streptococcus, urine cx (-), Bcx Acinetobacter Baumannii/Haemol, rpt with no growth. ID following, on Levaquin, Ampicillicin. - Resp. Failure, HCAP. Abx, Nebs. Vent per CCM. - RAN with electrolyte abnormalities. Creat 2.62 - AMS. EEG with diffusely low recording, could be medication effect as the patient was on fentanyl. No hemisphere asymmetries are noted. No epileptiform or seizure activity seen. IMPROVED. Now following commands, responding to simple yes/no quesitons. - Hx HTN, hyperlipidemia, BPH, per attending. PLAN: - TF changed to Glucerna per CCM - Cont. Oral Vanco - Cont. Prograf - Cont. Xifaxan - Cont. PPI - Abx per ID recommendations - Monitor CBC, CMP, PT/INR - Supportive care - CCM following - ID following - Further recommendations to follow based on results of above - Of note, patient has been declined by [facility] secondary to having original transplant at [facility] - [facility] will not see patient or make recommendations until they have contacted the Central Appointment Office to resolve outstanding balance- aware. - Pt seen and examined by Dr. Benitez and myself and this note is written on her behalf (Kenisha Lopez) Physician Comments seen, examined agree with above (Stephanie Benitez MD) Kenisha Lopez Mar 29, 2017 17:37 Stephanie Benitez MD Mar 29, 2017 18:43
--- NOTE | 2017-03-29 21:11 | HHI.IDPN ---
Subjective Subjective Remarks C.diff positive 027 strain large amount of stool WBC 35 Antibiotics Amp/S leva Allergies: Coded Allergies: *MDRO Multi-Drug Resistant Organism (Verified Adverse Reaction, Unknown, ) MRSA (heel wound) - 07/23/16 MRSA PCR Screen POSITIVE-03/22/17 Objective . Vital Signs Date Time Temp Pulse Resp B/P Pulse Ox O2 Delivery O2 Flow Rate FiO2 03/29/17 18:00 121 114/67 126/66 03/29/17 18:00 121 03/29/17 16:07 100 40 03/29/17 16:00 35 03/29/17 16:00 74 03/29/17 16:00 98.6 74 104/65 100 123/65 03/29/17 16:00 74 104/65 123/65 03/29/17 14:00 74 114/70 126/62 03/29/17 14:00 74 03/29/17 12:00 72 03/29/17 12:00 72 100/63 113/56 03/29/17 12:00 35 03/29/17 12:00 99.2 72 15 100/63 100 113/56 03/29/17 11:54 100 42 03/29/17 10:00 72 03/29/17 10:00 72 97/59 107/57 03/29/17 09:25 45 03/29/17 08:40 35 03/29/17 08:40 99 35 03/29/17 08:00 94 03/29/17 08:00 98.7 94 15 103/70 100 123/62 03/29/17 08:00 94 103/70 123/62 03/29/17 08:00 35 03/29/17 06:00 122 03/29/17 06:00 122 78/51 91/54 03/29/17 04:55 99 35 03/29/17 04:00 94 99/55 98/59 03/29/17 04:00 35 03/29/17 04:00 94 03/29/17 04:00 98.6 94 99/55 100 98/59 03/29/17 02:00 126 03/29/17 02:00 126 117/75 125/68 03/29/17 01:12 100 35 03/29/17 00:07 115 105/58 118/65 03/29/17 00:00 93 03/29/17 00:00 35 03/29/17 00:00 98.0 93 105/58 100 109/61 03/28/17 22:25 100 35 03/28/17 22:02 127 123/76 124/73 03/28/17 22:01 127 03/28/17 03/28/17 03/29/17 14:59 22:59 06:59 Intake Total 1094 ml 893 ml 919 ml Output Total 3050 ml 910 ml 495 ml Balance -1956 ml -17 ml 424 ml Intake IV Total 628 ml 320 ml 452 ml Tube Feeding 346 ml 573 ml 467 ml Other 120 ml Output Urine Total 3050 ml 835 ml 345 ml Stool Total 75 ml 150 ml . Laboratory Tests Test 03/28/17 03/29/17 04:51 05:49 White Blood Count 16.6 TH/MM3 35.1 TH/MM3 Red Blood Count 2.84 MIL/MM3 3.05 MIL/MM3 Hemoglobin 7.9 GM/DL 8.4 GM/DL Hematocrit 24.0 % 25.9 % Mean Corpuscular Volume 84.8 FL 84.9 FL Mean Corpuscular Hemoglobin 28.0 PG 27.7 PG Mean Corpuscular Hemoglobin 33.0 % 32.6 % Concent Red Cell Distribution Width 16.2 % 16.2 % Platelet Count 69 TH/MM3 140 TH/MM3 Mean Platelet Volume 9.0 FL 8.6 FL Laboratory Tests Test 03/28/17 03/28/17 03/29/17 04:51 09:00 05:49 Sodium Level 140 MEQ/L 143 MEQ/L Potassium Level 3.6 MEQ/L 3.3 MEQ/L Chloride Level 102 MEQ/L 105 MEQ/L Carbon Dioxide Level 25.7 MEQ/L 24.6 MEQ/L Anion Gap 12 MEQ/L 13 MEQ/L Blood Urea Nitrogen 136 MG/DL 136 MG/DL Creatinine 2.71 MG/DL 2.62 MG/DL Estimat Glomerular Filtration 24 ML/MIN 25 ML/MIN Rate Random Glucose 211 MG/DL 112 MG/DL Calcium Level 7.8 MG/DL 8.0 MG/DL Phosphorus Level 5.5 MG/DL 5.1 MG/DL Magnesium Level 2.0 MG/DL 1.9 MG/DL Total Bilirubin 0.6 MG/DL 0.7 MG/DL Direct Bilirubin 0.3 MG/DL 0.2 MG/DL Indirect Bilirubin 0.3 MG/DL 0.5 MG/DL Aspartate Amino Transf 23 U/L 33 U/L (AST/SGOT) Alanine Aminotransferase 17 U/L 19 U/L (ALT/SGPT) Alkaline Phosphatase 119 U/L 125 U/L Total Protein 5.8 GM/DL 6.3 GM/DL Albumin 2.3 GM/DL 2.5 GM/DL Ammonia 30 MCMOL/L Imaging Last Impressions Upper Extremity Ultrasound 03/29/17 Signed Impressions: Service Date/Time: Wednesday, March 29, 2017 11:02 - CONCLUSION: Small amount of thrombus in the left cephalic vein and the left basilic vein. Right upper extremity is unremarkable . Valerio Jerome MD Lower Extremity Ultrasound 03/29/17 Signed Impressions: Service Date/Time: Wednesday, March 29, 2017 10:40 - CONCLUSION: Normal examination. Valerio Jerome MD Chest X-Ray 03/29/17 Signed Impressions: Service Date/Time: Wednesday, March 29, 2017 15:10 - CONCLUSION: Tubes and catheters are in good position. Small bilateral pleural effusions with mild persistent pulmonary vascular congestion. Valerio Jerome MD Abdomen Ultrasound 03/22/172122 Signed Impressions: Service Date/Time: Wednesday, March 22, 2017 08:14 - CONCLUSION: 1. Mild diffusely heterogeneous transplant liver echotexture with small amount of volume loss. No definitive evidence for portal venous gas or significant pneumobilia by ultrasound exam. However, examination was not specifically tailored for extended interrogation of the hepatic vasculature. 2. No sonographic evidence for intra-or extrahepatic ductal dilatation. 3. Trace ascites and small bilateral pleural effusions. Everton Cruz MD Chest CT 03/22/17 Signed Impressions: Service Date/Time: Wednesday, March 22, 2017 15:37 - CONCLUSION: There is ascites and bilateral pleural effusion and worsening left lung consolidation. Indu Cunningham MD Abdomen/Pelvis CT 03/22/17 Signed Impressions: Service Date/Time: Wednesday, March 22, 2017 15:40 - CONCLUSION: Increase in ascites and mesenteric congestion since the prior exam. Indu Cunningham MD Abdomen X-Ray 03/22/17 0000 Signed Impressions: Service Date/Time: Wednesday, March 22, 2017 07:00 - CONCLUSION: No findings characteristic of perforation. Nasogastric tube coiled within the fundus of the stomach. Emilio Snow MD Head CT 03/21/17 0000 Signed Impressions: Service Date/Time: Tuesday, March 21, 2017 23:27 - CONCLUSION: Normal examination. Valerio Jerome MD Physical Exam CONSTITUTIONAL/GENERAL: This is an adequately nourished patient, in no apparent distress. TUBES/LINES/DRAINS: SKIN: + mild jaundice, rashes, or lesions. Skin temperature appropriate.Non diaphoretic. EYES: Pupils reactive . + minimal scleral icterus. No injection or drainage. Fundi not examined. NECK: Trachea midline. CARDIOVASCULAR: Regular rate and rhythm + 3/6 syst murmur, no gallops, or rubs. No JVD. Periphery is poorly perfused RESPIRATORY/CHEST: Symmetric, respirations. Scattered rhonchi. GASTROINTESTINAL: Abdomen soft, no reaction to palpation, + moderately distended. No hepato-splenomegaly, or palpable masses. No guarding. Bowel sounds present. Incontinent of loose brown stool GENITOURINARY: Without palpable bladder distension. Mcpherson catheter in place with clear yellow urine MUSCULOSKELETAL: Extremities without clubbing, + edema no cyanosis . No mottling or clubbing. NEUROLOGICAL: sedated withdrawls not opening eyes not following commnads PSYCHIATRIC: Unable to assess Assessment & Plan Remarks Sepsis, septic shock, Acinetobacter chávez S clinically improved repeat blood clx are negative Source is jean carlos bacteremiic gram negative PNA 2/2 Acinetobacter : though no growth on clx, Gstain was with GNBs LLL PNA , gram negative ? acinetobacter Acinetobacter bacteremia Acute VDRF ARF on CKD: no e/o interst nephritis - worsening UOP Immunosuppressed, sp liver transplant Critically ill, stable Severe leukocytosis with leukemoid reaction New issure: hypervirulent C.diff, severe REC's:cont Amp/sulbactam dc levaquine other option cefepime, fortaz; will avoid Rocephin in liver transplant pt 2 /2 cholestatic risks cont vanco PO, up to 500 add Flagyl IV dw Celestina Branch MD Mar 29, 2017 21:11
[2017-03-29] MEDS: metroNIDAZOLE 500 MG INJ 100 ML IV SCH (23:16)
[2017-03-30] VITALS (56 sets, daily range): BP systolic 95–183; BP diastolic 51–80; PULSE 73–126; RESP 16–20; TEMP 98.4–99; O2SAT 92–100
[2017-03-30] MEDS: DILTIAZEM HCL 90 MG TAB PO SCH ×4 (00:31→17:11)
[2017-03-30] MEDS: PROPOFOL 1000 MG/100 ML INJ 100 ML IV SCH ×3 (00:31→15:48)
[2017-03-30] MEDS: HYDROCORTISONE SOD SUCCINATE 100 MG VIAL IV PUSH SCH ×2 (02:26→13:27)
[2017-03-30] MEDS: fentaNYL DRIP 250 ML IV SCH ×2 (02:35→14:12)
[2017-03-30] MEDS: RESP: ALBUTEROL 2.5 MG/IPRATROPIUM 0.5 MG NEB (SCH) NEB ×4 (03:45→20:43)
[2017-03-30] MEDS: HIGH DOSE INSULIN NOVOLIN REGULAR SUPPLEMENTAL SCALE SQ SCH ×6 (04:00→20:00)
[2017-03-30] MEDS: AMPICILLIN-SULBACTAM INJ 3 GM in SODIUM CHLORIDE 0.9% INJ 100 ML IV SCH ×4 (04:00→22:11)
[2017-03-30] MEDS: CHLORHEXIDINE GLUCONATE 2 % 1 PACK (2 CLOTHS) TOP SCH (04:00)
[2017-03-30 04:50] LABS: AUTOMATED NEUTROPHIL # 25.7 TH/MM3 (1.8-7.7); BASOPHIL # 0.1 TH/MM3 (0-0.2); BASOPHIL % 0.4 % (0.0-2.0); EOSINOPHIL # 0.1 TH/MM3 (0-0.4); EOSINOPHIL % 0.3 % (0.0-4.0); HEMATOCRIT 23.7 % (39.0-51.0); LYMPH % 5.3 % (9.0-44.0); LYMPHOCYTE # 1.5 TH/MM3 (1.0-4.8); MEAN CELL VOLUME 85.2 FL (80.0-100.0); MEAN CORPUSCULAR HEMOGLOBIN 27.4 PG (27.0-34.0); MEAN CORPUSCULAR HGB CONC 32.2 % (32.0-36.0); MONO % 2.6 % (0.0-8.0); NEUT % 91.4 % (16.0-70.0); PLATELET COUNT 129 TH/MM3 (150-450); RED BLOOD COUNT 2.78 MIL/MM3 (4.50-5.90); RED CELL DISTRIBUTION WIDTH 15.7 % (11.6-17.2); WHITE BLOOD COUNT 28.1 TH/MM3 (4.0-11.0)
[2017-03-30 04:53] LABS: HEMO FLAGS AUTO DIFF
[2017-03-30 05:16] LABS: ALT (GPT) 24 U/L (12-78); ANION GAP 11 MEQ/L (5-15); AST (GOT) 43 U/L (15-37); BICARBONATE 26.9 MEQ/L (21.0-32.0); CHLORIDE 105 MEQ/L (98-107); GLOMERULAR FILTRATION RATE 23 ML/MIN (>89); POTASSIUM 3.7 MEQ/L (3.5-5.1); SODIUM (NA) 143 MEQ/L (136-145)
[2017-03-30 05:17] LABS: ALKALINE PHOSPHATASE 132 U/L (45-117); TOTAL BILIRUBIN ADULT 0.8 MG/DL (0.2-1.0)
[2017-03-30 05:34] LABS: BLOOD UREA NITROGEN 147 MG/DL (7-18)
[2017-03-30 05:43] LABS: CREATINE KINASE 19 U/L (39-308)
[2017-03-30] MEDS: metroNIDAZOLE 500 MG INJ 100 ML IV SCH ×3 (06:35→22:12)
[2017-03-30 07:06] LABS: BANDS 14 % (0-6); NEUTROPHIL # MANUAL DIFF 25.6 TH/MM3 (1.8-7.7); OVALOCYTES 1+ (NORMAL); PLATELET ESTIMATE SMEAR LOW (NORMAL); PLATELET MORPHOLOGY NORMAL (NORMAL); POLYS (SEG NEUTROPHILS) 77 % (16-70); SCAN/DIFF FINAL DIFF MANUAL; WBC DIFF SAMPLE 100
[2017-03-30] MEDS: PANTOPRAZOLE SODIUM 40 MG VIAL IV SCH ×2 (08:18→22:15)
[2017-03-30] MEDS: VANCOMYCIN 500 MG VIAL (FOR ORAL USE ONLY) PO SCH ×4 (08:18→22:15)
[2017-03-30] MEDS: CHOLECALCIFEROL (VIT D3) 1000 UNIT TAB PO SCH ×2 (08:19→22:15)
[2017-03-30] MEDS: LACTULOSE SYRUP 20 GM/30 ML CUP PO SCH ×2 (08:19→22:15)
[2017-03-30] MEDS: RIFAXIMIN 550 MG TAB OG-TUBE SCH ×2 (08:19→21:00)
[2017-03-30] MEDS: TACROLIMUS 1 MG CAP PO SCH ×2 (08:19→22:17)
[2017-03-30] MEDS: DOCUSATE SODIUM 50 MG/SENNA 8.6 MG TAB PO SCH ×2 (08:19→22:15)
[2017-03-30] MEDS: FOLIC ACID 1 MG TAB PO SCH ×2 (08:19→21:00)
[2017-03-30] MEDS: SODIUM CHLORIDE 0.9% FLUSH 10 ML FLUSH IV FLUSH SCH ×2 (08:23→22:18)
[2017-03-30] MEDS: INSULIN DETEMIR 100 UNITS/ML VIAL SQ SCH ×2 (08:54→22:17)
[2017-03-30] MEDS: CHLORHEXIDINE 0.12% (ORAL KIT) 15 ML CUP MT SCH ×2 (08:57→22:19)
[2017-03-30] MEDS: DILTIAZEM INJ 125 MG in SODIUM CHLORIDE 0.9% INJ 100 ML IV SCH (10:18)
--- NOTE | 2017-03-30 10:45 | PD.WCN.NOT ---
Wound Consult Description: Possible pressure injury to coccyx. Communicated with: DREW Saucedo and Doctor Avila Recommendation: Please cleanse buttock area gently with soap and water and pat dry. Apply Calazime barrier cream BID and PRN.Leave DTI to coccyx and deflated bulla open to air. Additional Information: Patient seen on 5th floor [facility] for screening of possible pressure injury to coccyx. Patient turned to L side with assistance of DREW Saucedo [facility], Ailyn RUSSELL [facility] and credit underwriter. Area of non blanchable purple discoloration with deflated bulla noted at 2 o'clock with scant serous drainage, located on coccyx and extends to bilateral buttocks assessed.Entire non blanchable purple area is measuring 7 cm x 3.5cm, indicating deep tissue injury. Deflated bulla measures ~2.5cm x ~ 0.5cm. Left DTI and deflated bulla open to air and applied skin prep to entire area.Tube feed is currently on hold. Patient is on a Renata Bed, but is not stable enough at this time for use of alternating pressure pump.Patient repositioned in bed to L side before leaving patient's room. Allyson Contreras [facility] Mar 30, 2017 10:45
--- NOTE | 2017-03-30 11:48 | PD.CARD.PN ---
Subjective Subjective Remarks In SR/ST this am, no clinical changes cardiac ramirez. Objective Medications Administered Medications Medications (Trade) Dose Ordered Sig/Herb Route PRN Reason Start Time Stop Time Status Last Admin Dose Admin Fentanyl Citrate (fentaNYL DRIP) 250 ml @ 0 mls/hr TITRATE IV 03/21/17 21:15 03/30/17 02:35 Sodium Chloride (NS Flush) 2 ml UNSCH PRN IV FLUSH FLUSH AFTER USING IV ACCESS 03/21/17 22:00 03/26/17 14:37 Sodium Chloride (NS Flush) 2 ml BID IV FLUSH 03/22/17 09:00 03/30/17 08:23 Chlorhexidine Gluconate (Chlorhexidine 2% Cloth) Taper DAILY@04 TOP 03/22/17 04:00 03/18/18 03:59 03/26/17 03:30 Senna/Docusate Sodium (Pretty-Colace) 1 tab BID PO 03/22/17 09:00 03/30/17 08:19 Sennosides (Senokot) 17.2 mg Q12H PRN PO MODERATE - SEVERE CONSTIPATION 03/21/17 22:00 03/24/17 08:12 Cholecalciferol (Vitamin D3) 1,000 units BID PO 03/22/17 09:00 03/30/17 08:19 Folic Acid (Folate) 1 mg BID PO 03/22/17 09:00 03/30/17 08:19 Chlorhexidine Gluconate (Peridex 0.12% Liq) 15 ml BID@08,20 MT 03/22/17 08:00 03/30/17 08:57 Insulin Human Regular (NovoLIN R SUPPLEMENTAL SCALE) 1 Q4H SQ 03/23/17 12:00 03/29/17 08:00 Pantoprazole Sodium (Protonix Inj) 40 mg BID IV 03/23/17 21:00 03/30/17 08:18 Rifaximin (Xifaxan) 550 mg BID OG-TUBE 03/23/17 21:00 03/30/17 08:19 Lactulose 30 ml 30 ml BID PO 03/23/17 21:00 03/30/17 08:19 Propofol (Diprivan 1000 Mg/100ml Inj) 100 ml @ 0 mls/hr TITRATE IV 03/23/17 13:45 03/30/17 06:39 Tacrolimus 1 mg 1 mg DAILY PO 03/25/17 09:00 03/30/17 08:19 Ampicillin Sodium/ Sulbactam Sodium/ Sodium Chloride (Unasyn Inj/NS Inj) 100 ml @ 200 mls/hr Q6H IV 03/27/17 10:00 03/30/17 10:06 Insulin Detemir (Levemir Inj) 30 units Q12HR SQ 03/27/17 21:00 03/30/17 08:54 Furosemide (Lasix Inj) 40 mg Q12H IV PUSH 03/27/17 16:00 Hold 03/28/17 04:00 Hydrocortisone Sodium Succinate 50 mg 50 mg Q12H IV PUSH 03/28/17 14:00 03/30/17 02:26 Diltiazem HCl 125 mg/Sodium Chloride 125 ml @ 0 mls/hr TITRATE IV 03/28/17 09:00 03/30/17 10:18 Phenylephrine HCl/ Dextrose (Neosynephrine Inj/D5W 500 ml Inj) 500 ml @ 0 mls/hr TITRATE IV 03/28/17 08:30 03/28/17 20:41 Diltiazem HCl (Cardizem) 90 mg Q6HR PO 03/28/17 12:00 03/30/17 11:33 Vancomycin HCl 500 mg 500 mg QID PO 03/30/17 09:00 03/30/17 08:18 Metronidazole (Flagyl 500 Mg Inj) 100 ml @ 100 mls/hr Q8H IV 03/29/17 22:00 03/30/17 06:35 Vital Signs / I&O Vital Signs Date Time Temp Pulse Resp B/P Pulse Ox O2 Delivery O2 Flow Rate FiO2 03/30/17 11:11 100 40 03/30/17 10:00 82 03/30/17 10:00 82 136/76 146/67 03/30/17 08:26 96 40 03/30/17 08:26 40 03/30/17 08:00 98.7 98 104/60 100 110/60 03/30/17 08:00 98 03/30/17 08:00 40 03/30/17 08:00 98 114/67 126/66 03/30/17 07:00 98 140/67 97 140/68 03/30/17 06:45 99 138/68 100 7/18/17 06:30 98 132/66 100 7/18/17 06:15 98 136/69 100 7/18/17 06:00 98 7/18/17 06:00 98 131/78 100 128/68 7/18/17 05:45 97 125/66 100 7/18/17 05:30 98 121/64 100 7/18/17 05:15 98 122/65 100 7/18/17 05:00 99 133/75 100 147/70 7/18/17 04:45 98 127/66 100 7/18/17 04:30 98 138/70 100 7/18/17 04:15 98 132/68 99 7/18/17 04:00 97 107/68 100 134/68 7/18/17 04:00 98.5 97 16 107/68 100 136/68 7/18/17 04:00 97 7/18/17 04:00 40 7/18/17 04:00 97 107/68 100 134/68 7/18/17 03:45 98 134/67 100 7/18/17 03:45 100 40 7/18/17 03:30 74 125/58 100 7/18/17 03:15 99 118/59 99 7/18/17 03:00 73 95/56 99 104/51 7/18/17 02:45 98 111/64 99 7/18/17 02:30 75 113/55 100 7/18/17 02:15 126 125/67 100 7/18/17 02:00 99 132/80 100 135/67 7/18/17 02:00 99 7/18/17 01:45 90 128/64 100 7/18/17 01:30 90 136/67 100 7/18/17 01:17 100 40 7/18/17 01:15 108 140/70 100 7/18/17 01:00 103 115/69 100 135/68 7/18/17 00:45 98 114/62 100 7/18/17 00:30 99 118/62 100 7/18/17 00:15 98 123/63 100 7/18/17 00:00 99.0 98 16 108/66 100 99/57 7/18/17 00:00 98 108/66 100 99/57 7/18/17 00:00 40 7/18/17 00:00 98 7/18/17 00:00 98 108/66 100 99/57 7/17/17 23:45 75 123/58 100 7/17/17 23:30 98 104/58 100 7/17/17 23:15 74 124/58 100 7/17/17 23:00 74 114/65 100 115/54 7/17/17 22:45 99 131/66 100 7/17/17 22:30 100 110/58 100 7/17/17 22:15 86 110/56 100 7/17/17 22:00 100 111/62 100 115/60 7/17/17 22:00 100 7/17/17 21:45 100 129/65 100 7/17/17 21:30 75 141/67 100 7/17/17 21:15 99 129/69 100 7/17/17 21:02 100 40 7/17/17 21:00 100 111/67 100 125/68 7/17/17 20:45 99 114/63 100 717/17 20:30 78 125/61 100 17/17 20:15 74 108/52 100 717/17 20:00 74 717/17 20:00 98.5 74 16 97/56 100 103/51 7/17/17 20:00 74 97/56 100 103/51 7/17/17 20:00 40 7/17/17 18:00 121 114/67 126/66 717/17 18:00 121 717/17 16:07 100 40 7/17/17 16:00 35 7/17/17 16:00 74 17/17 16:00 98.6 74 104/65 100 123/65 7/17/17 16:00 74 104/65 123/65 7/17/17 14:00 74 114/70 126/62 7/17/17 14:00 74 717/17 12:00 72 7/17/17 12:00 72 100/63 113/56 7/17/17 12:00 35 7/17/17 12:00 99.2 72 15 100/63 100 113/56 7/17/17 11:54 100 42 I/O 7/17/17 7/17/17 7/17/17 7/18/17 7/18/17 7/18/17 07:00 15:00 23:00 07:00 15:00 23:00 Intake Total 919 ml 951 ml 884 ml 1115 ml Output Total 495 ml 400 ml 535 ml 1460 ml 225.0 ml Balance 424 ml 551 ml 349 ml -345 ml -225.0 ml Intake IV Total 452 ml 467 ml 506 ml 726 ml Tube Feeding 467 ml 394 ml 318 ml 299 ml Other 90 ml 60 ml 90 ml Output Urine Total 345 ml 300 ml 375 ml 500 ml Stool Total 150 ml 100 ml 160 ml 960 ml Tube Feeding Residual Discard 0 ml 0 ml 225.0 ml Physical Exam GENERAL: Intubated, mildly agitated CARDIOVASCULAR: Rapid rate and irregular rhythm without murmurs, gallops, or rubs. RESPIRATORY: Clear to auscultation. Breath sounds equal bilaterally. No wheezes , rales, or rhonchi. GASTROINTESTINAL: Abdomen soft, non-tender, nondistended. Normal, active bowel sounds MUSCULOSKELETAL: Extremities without clubbing, cyanosis, or edema. NEURO: mildly sedated Laboratory Laboratory Tests Test 03/30/17 04:44 White Blood Count 28.1 TH/MM3 Red Blood Count 2.78 MIL/MM3 Hemoglobin 7.6 GM/DL Hematocrit 23.7 % Mean Corpuscular Volume 85.2 FL Mean Corpuscular Hemoglobin 27.4 PG Mean Corpuscular Hemoglobin 32.2 % Concent Red Cell Distribution Width 15.7 % Platelet Count 129 TH/MM3 Mean Platelet Volume 8.1 FL Neutrophils (%) (Auto) 91.4 % Lymphocytes (%) (Auto) 5.3 % Monocytes (%) (Auto) 2.6 % Eosinophils (%) (Auto) 0.3 % Basophils (%) (Auto) 0.4 % Neutrophils # (Auto) 25.7 TH/MM3 Lymphocytes # (Auto) 1.5 TH/MM3 Monocytes # (Auto) 0.7 TH/MM3 Eosinophils # (Auto) 0.1 TH/MM3 Basophils # (Auto) 0.1 TH/MM3 CBC Comment AUTO DIFF Differential Total Cells 100 Counted Neutrophils % (Manual) 77 % Band Neutrophils % 14 % Lymphocytes % 6 % Monocytes % 3 % Neutrophils # (Manual) 25.6 TH/MM3 Differential Comment FINAL DIFF MANUAL Platelet Estimate LOW Platelet Morphology Comment NORMAL Ovalocytes 1+ Sodium Level 143 MEQ/L Potassium Level 3.7 MEQ/L Chloride Level 105 MEQ/L Carbon Dioxide Level 26.9 MEQ/L Anion Gap 11 MEQ/L Blood Urea Nitrogen 147 MG/DL Creatinine 2.72 MG/DL Estimat Glomerular Filtration 23 ML/MIN Rate Random Glucose 83 MG/DL Calcium Level 7.7 MG/DL Phosphorus Level 5.4 MG/DL Magnesium Level 2.0 MG/DL Total Bilirubin 0.8 MG/DL Aspartate Amino Transf 43 U/L (AST/SGOT) Alanine Aminotransferase 24 U/L (ALT/SGPT) Alkaline Phosphatase 132 U/L Ammonia 17 MCMOL/L Total Creatine Kinase 19 U/L Total Protein 6.3 GM/DL Albumin 2.4 GM/DL Imaging Last Impressions Upper Extremity Ultrasound 03/29/17 Signed Impressions: Service Date/Time: Wednesday, March 29, 2017 11:02 - CONCLUSION: Small amount of thrombus in the left cephalic vein and the left basilic vein. Right upper extremity is unremarkable . Valerio Jerome MD Lower Extremity Ultrasound 03/29/17 Signed Impressions: Service Date/Time: Wednesday, March 29, 2017 10:40 - CONCLUSION: Normal examination. Valerio Jerome MD Chest X-Ray 03/29/17 Signed Impressions: Service Date/Time: Wednesday, March 29, 2017 15:10 - CONCLUSION: Tubes and catheters are in good position. Small bilateral pleural effusions with mild persistent pulmonary vascular congestion. Valerio Jerome MD Abdomen Ultrasound 03/22/172122 Signed Impressions: Service Date/Time: Wednesday, March 22, 2017 08:14 - CONCLUSION: 1. Mild diffusely heterogeneous transplant liver echotexture with small amount of volume loss. No definitive evidence for portal venous gas or significant pneumobilia by ultrasound exam. However, examination was not specifically tailored for extended interrogation of the hepatic vasculature. 2. No sonographic evidence for intra-or extrahepatic ductal dilatation. 3. Trace ascites and small bilateral pleural effusions. Everton Cruz MD Chest CT 03/22/17 Signed Impressions: Service Date/Time: Wednesday, March 22, 2017 15:37 - CONCLUSION: There is ascites and bilateral pleural effusion and worsening left lung consolidation. Indu Cunningham MD Abdomen/Pelvis CT 03/22/17 Signed Impressions: Service Date/Time: Wednesday, March 22, 2017 15:40 - CONCLUSION: Increase in ascites and mesenteric congestion since the prior exam. Indu Cunningham MD Abdomen X-Ray 03/22/17 0000 Signed Impressions: Service Date/Time: Wednesday, March 22, 2017 07:00 - CONCLUSION: No findings characteristic of perforation. Nasogastric tube coiled within the fundus of the stomach. Emilio Snow MD Head CT 03/21/17 0000 Signed Impressions: Service Date/Time: Tuesday, March 21, 2017 23:27 - CONCLUSION: Normal examination. Valerio Jerome MD Assessment and Plan Problem List: (1) Atrial fibrillation with RVR Assessment and Plan: in sr/st now; pt isn't an anticoagulation candidate due to GI bleeding; he has declined watchman device. Assessment and Plan will be available as needed, please call with any questions. Mitchell Lovell MD Mar 30, 2017 11:48
--- NOTE | 2017-03-30 13:52 | HHI.CCPN ---
Subjective Remarks/Hospital Course 67-year-old male with past medical history of primary sclerosing cholangitis with orthotopic liver transplant at [facility] in 2001, hypertension, atrial fibrillation status post ablation, hyperlipidemia, diabetes mellitus who presents to [facility] emergency department with altered mental status, fever, urinary incontinence. He was brought in by his . She states that this morning he was doing well and participated with home health physical therapy. When his returned home this evening she found him lethargic and minimally responsive. He had a cup full of mucus and when she inquired about it he stated that he had vomited. He refused ambulance transport. He had a temperature of 103 upon arrival to the emergency department. His states he told ED staff that he had experienced dysuria starting today. He has h/o BPH and UTI in the past. He has chronic low back pain. He denies headache or neck stiffness. His states he returned to his baseline mental status while in the ED and was conversant with her. He had no focal weakness and no witnessed seizure. His ED workup demonstrated U/a with moderate bacteria, 13 WBC, 2 RBC. White blood cell count was 14 with 9% bands, hemoglobin 10.5, platelets 135, AST 45, ALT 31, alkaline phosphatase 172, PT 12.3, INR 1.1 . Creatinine was 2.32 (baseline about 1.6-2), BUN 73, sodium 132 , potassium 5.2, bicarbonate 17 His initial lactic acid was 1.6. He was given Zosyn and 3 L NS bolus and admitted to the hospitalist service. He was complaining of chronic back pain and was anxious/agitated so was given Ativan 0.5 mg IV (chronically on Xanax). ED physician Dr. Orozco was called in because he became unresponsive and he was hypopneic with inadequate respirations. Sats were in the 60s. He complained to his that he could not see. He was hypotensive in 70s and post-intubation BP dropped to 60s/40s and [place] was called. CVL was placed and he was started on levophed and vasopressin. He is awake on vent and answering questions yes/no. 03/22: patient in refractory distributive shock. I evaluated the patient multiple times throughout the day beginning around 0600 and at frequent intervals. Patient remains acidotic on maximal vasopressor therapy. I had discussions with Dr. Anaya with ID, cultures are growing out Acinetobacter. abx changed to tobra, vanc, meropenem, levaquin, unasyn. continued ivf resuscitation throughout the day guided by frequent IVC and cardiac echo. formal echo with grossly preserved LV function and mild RV dysfunction. but IVC continued to be collapsable. acute renal failure worsening and acidosis severe. started on bicarb drip. repeat CT abd/pelvis performed. I personally transported patient down to CT scanner given how severely unstable the patient was. Discussed with general surgery and interval CT scan is necessary to eval for intra-abdominal source of sepsis. interval CT without change. most likely Acinetobacter pneumonia with overwhelming septic shock. discussed with at length multiple times today regarding his life-threatening infection and his high risk of mortality. 03/23: vasopressors weaning down. patient waking up, following commands. still persistently acidotic, in multiorgan failure. renal dysfunction persists and oliguric. acinetobacter sensitivities not resulted. 03/24: off vasopressors. clinically beginning to improve. Acinetobacter is pansensitive. oliguria persists, but Cr stable and no current indication for acute HD. 03/25: went into afib RVR yesterday. given mgso4 and started aggressive forced diuresis with lasix drip at 20mg/hr. converted spontaneously back to NSR after only about 2 hours. This AM net -2.4L/24h. continues to make 200cc/hr uop. hemodynamics stable. very low-dose norepinephrine requirement. Cr stable, though RAN persists. 03/26: remains in afib, intermittently RVR. on diltiazem drip. Cr worse. uop declining. appears intravascularly dry. stopped lasix drip. wbc uptrending, but still appears nontoxic. 03/27 Afebrile, WBC 16.8 from 22k. Afib converted to sinus rhythm in 50s, discontinuing cardizem 5 mg/hr that is running. Creatinine steady at 2.75 ( previoulsy 2.8 <--2.81). UOP was in 70s this morning, now down to 50 cc/hr and 30 cc/hr. Positive fluid balance last 24 hours. Now CI 2.1 SVV 7, SVI 33. Glucose poorly controlled in 200s to 300s despite high does insulin sliding scale. Off vasopressors since this morning. 03/28 C diff positive. Started vancomycin po overnight. Tolerating tube feeds. A fib RVR in 130s this morning and initially hypotensive when went into Afib and levophed started but quickly weaned off. Restarting cardizem drip. BUN increased but creatinine relatively unchanged. UOP better with lasix yesterday and now edema slightly improved. Wean hydrocortisone. Glucose better after initiation of detemir but still 210. 03/29: Afebrile. Intermittently A. fib with RVR currently normal sinus rhythm. -4000 cc urine output has 24 hours. Arousable and intermittently following commands. Subjective: 03/30: Afebrile. Intermittently in normal sinus rhythm/A. fib with RVR. Adequate prep. Increasing BUN and creatinine noted. Arousable on the ventilator and will follow commands. Tolerate CPAP 1 hour so far today. Positive BM. Increased residuals from tube feeding noted prostate 400 cc Objective Vital Signs Date Time Temp Pulse Resp B/P Pulse Ox O2 Delivery O2 Flow Rate FiO2 03/30/17 12:00 40 03/30/17 12:00 89 113/68 130/68 03/30/17 12:00 98.9 100 03/30/17 04:00 16 Intake and Output 03/29/17 03/29/17 03/30/17 08:00 16:00 00:00 Intake Total 919 ml 951 ml 884 ml Output Total 409 ml 366 ml 535.0 ml Balance 510 ml 585 ml 349.0 ml Result Diagram: 03/30/17 0444 03/30/17 0444 Imaging Last Impressions Upper Extremity Ultrasound 03/29/17 0000 Signed Impressions: Service Date/Time: Wednesday, March 29, 2017 11:02 - CONCLUSION: Small amount of thrombus in the left cephalic vein and the left basilic vein. Right upper extremity is unremarkable . Valerio Jerome MD Lower Extremity Ultrasound 03/29/17 0000 Signed Impressions: Service Date/Time: Wednesday, March 29, 2017 10:40 - CONCLUSION: Normal examination. Valerio Jerome MD Chest X-Ray 03/29/17 0000 Signed Impressions: Service Date/Time: Wednesday, March 29, 2017 15:10 - CONCLUSION: Tubes and catheters are in good position. Small bilateral pleural effusions with mild persistent pulmonary vascular congestion. Valerio Jerome MD Abdomen Ultrasound 03/22/172122 Signed Impressions: Service Date/Time: Wednesday, March 22, 2017 08:14 - CONCLUSION: 1. Mild diffusely heterogeneous transplant liver echotexture with small amount of volume loss. No definitive evidence for portal venous gas or significant pneumobilia by ultrasound exam. However, examination was not specifically tailored for extended interrogation of the hepatic vasculature. 2. No sonographic evidence for intra-or extrahepatic ductal dilatation. 3. Trace ascites and small bilateral pleural effusions. Everton Cruz MD Chest CT 03/22/17 Signed Impressions: Service Date/Time: Wednesday, March 22, 2017 15:37 - CONCLUSION: There is ascites and bilateral pleural effusion and worsening left lung consolidation. Indu Cunningham MD Abdomen/Pelvis CT 03/22/17 Signed Impressions: Service Date/Time: Wednesday, March 22, 2017 15:40 - CONCLUSION: Increase in ascites and mesenteric congestion since the prior exam. Indu Cunningham MD Abdomen X-Ray 03/22/17 Signed Impressions: Service Date/Time: Wednesday, March 22, 2017 07:00 - CONCLUSION: No findings characteristic of perforation. Nasogastric tube coiled within the fundus of the stomach. Emilio Snow MD Head CT 03/21/17 Signed Impressions: Service Date/Time: Tuesday, March 21, 2017 23:27 - CONCLUSION: Normal examination. Valerio Jerome MD Objective Remarks GENERAL: Chronically ill-appearing 67-year-old male , critically ill resting in bed SKIN: Warm and dry. Stage I sacral decubitus ulcer HEAD: Atraumatic. Normocephalic. EYES: Pupils equal and round, 2 mm and reactive bilaterally. No scleral icterus. No injection or drainage. ENT: Mucous membranes pink and moist. Oropharynx without erythema or exits. NECK: Trachea midline. No apparent JVD. CARDIOVASCULAR: RRR. S1, S2 no S4. Without murmur. RESPIRATORY:Coarse breath sounds in bilateral lower lung malhotra, diminished in dependent region. No wheezing appreciated GASTROINTESTINAL: Abdomen overall soft, non-tender, nondistended hypoactive bowel sounds are present. Dignishield in place with + stool in tubing : Mcpherson in place with light yellow urine output. Positive mild scrotal edema MUSCULOSKELETAL: There is muscular atrophy bilateral hands. Dependent edema and elbows of bilateral upper extremities. There is some trace pedal edema. NEUROLOGICAL: Eyes open and makes eye contact. Nods and shakes had to question. Follows commands by squeezing hands and releasing bilaterally. Wiggles toes bilaterally. Command A/P Assessment and Plan NEURO/PSYCH: Acute Vision change Acute metabolic encephalopathy- resolving. Peripheral neuropathy Chronic benzodiazepine use Chronic narcotic use Patient is currently on propofol at 12 mg/kg minutes/fentanyl drip at 100 g an hour for sedation/analgesia while intubated Goal of RASS -2 Daily sedation vacation Per prior notes, patient reported to that he could not see before intubation. ?secondary to profound hypotension and hypoperfusion. Pupils reactive, nodding head peripherally to 1-[address] brain 03/21 revealed no acute intracranial findings Will obtain MRI brain when hemodynamically stable Ammonia level -->17 EEG 03/22: severe slowing, no epileptiform activity Hold Neurontin 300 mg by mouth 3 times a day. Hold Xanax 0.5 mg every 8 hours when necessary Oxycodone 5 mg every 4 hours when necessary pain RESP: Acute hypoxic and hypercarpenic respiratory failure- History of tobacco abuse Acute healthcare associated left lower lobe pneumonia PRVC 16/550/0.9/5/50 Ventilator bundle Duoneb every 6 hours. Albuterol every [address] chest 03/21 - dense consolidation of LLL with air bronchograms. Bronchoscopy with BAL lingula 03/22 - no growth to date SBT and clinically indicated. Did not tolerate yesterday CXR 03/30 with improvement in LLL consolidation. CV: Septic shock with multi system organ failure- History of atrial fibrillation status post ablation currently intermittent A fib RVR History of hypertension Hyperlipidemia Evaluated by Dr. Lovell who has recommended further increase Cardizem to 90 q6. Maintain Cardizem drip at 5 mg an hour Phenylephrine currently at 20 mcg/m as needed to maintain MAO > 65 Initial troponin 0.03, mild increase to 0.06 is likely related to sepsis. Echo from 01/23/17 - +LVH, EF 60-65%. No regional wall motion abnormalities. Left atrial dilation. Echo 03/22- preserved LV function, mild RV dysfunction. collapsable IVC. Hold medications amlodipine 10 mg daily for hypertension on vasopressors, atorvastatin 40 mg daily for dyslipidemia with elevated LFTs, spironolactone 25 mg daily with acute kidney injury. Not ideal care for resumption for sotalol 80 mg twice a day/home medication Received IV Lasix 40 mg IV twice a day nicely. This currently on hold. 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 difficile Hypoalbuminemia Patient currently Glucerna 1.5@60 cc an hour/currently on hold secondary to high residuals. Check KUB Protonix for GI prophylaxis Patient has been followed by Dr. Mallory as outpatient. He has not been able to follow closely with [facility] due to financial reasons. states he has Pro[facility]f levels done at [place] and [facility] [place] [facility]. She states he has been referred to [facility] for possible repeat transplant due to plasma cell hepatitis but has not had followup appointment yet. Per GI notes, patient was refused for liver transplant at [facility] due to prior association with [place]. Prograf level currently 2.4. Increased to 2 mg twice a day CT abd/pelvis 03/21non-contrast - pneumobilia, fecal impaction, no free air or fluid. repeat CT abd pelvis 03/22: no change. Patient known to Dr. Mallory. GI has signed off for now, reconsult if needed. On Xifaxan 550 twice a day and lactulose 30 cc twice a day. UROLOGY: BPH Hold Proscar 5 milligrams daily Flomax 0.4 mg daily in light of hypotension. Resume when clinically indicated Maintain Mcpherson catheter FEN/RENAL: Acute on chronic kidney injury Hypokalemia Hyperphosphatemia Monitor intake and output hourly. Monitor electrolytes and replace as indicated. Urine eosinophils negative 03/24. Avoid nephrotoxic drugs We'll consult septic cleaner. [facility] but [facility] not [facility]. ID: Septic shock- improving LLL HCAP- Acinetobacterbaummini bacteremia C difficile diarrhea Continue Unasyn For Acinetobacter bacteremia (pansensitive) Vancomycin 500 po qid 03/29 and IV Flagyl 500 mg every 8 hours started for C. difficile 027 positive ID following: Dr. nAaya. HEME: Leukocytosis Chronic normocytic anemia Acute on chronic Thrombocytopenia Left cephalic/basilic superficial thrombus Monitor CBC daily monitor trends. Preliminary negative bilateral upper and lower extreme Dopplers ENDO: Diabetes mellitus Hyperglycemia Levemir 30 subcutaneous q12. Currently on sliding scale insulin/high regimen every 4 hours 30 units sliding scale past 24 hours Wean Hydrocortisone 50 IV q12 and continue to taper total 7 days therapy PROPH: SCDs. Resume heparin 5000 units subcutaneous twice a day Protonix 40 mg IV was daily for stress ulcer prophylaxis. ACCESS: Right subclavian central venous line placed 03/29 #2. Left radial art line 03/29 #2 CCT 30 minutes Juanito Avila MD Mar 30, 2017 13:51
--- NOTE | 2017-03-30 16:01 | MB ---
cc: SHAILESH CARBONE MD DATE OF CONSULTATION 03/30/2017 REASON FOR CONSULTATION Elevated BUN and creatinine and decreased urine output. HISTORY OF PRESENT ILLNESS This is a 67-year-old male with past medical history of liver transplant in 2001, hypertension, atrial fibrillation, hyperlipidemia, diabetes mellitus, history of atrial fibrillation with ablation, chronic kidney disease was admitted on March 19 because of a lethargy and decreased responsiveness. The patient was initially diagnosed with urosepsis and with hypotension. His blood pressure dropped in the 70s and 60s systolic. He was resuscitated and started on pressors and has been followed by infectious disease and also diagnosed with C difficile colitis and getting the antibiotic. His blood pressure has been on the lower side. He was on Lasix which has been stopped and urine output has been dropped. The patient is intubated and sedated and not able to give any history. Most of the history was taken from the patient's chart according to which he has been in shock status with hypoxemia and respiratory failure. The patient was seen by me when he was here two months ago. At that time his creatinine improved and it was around 1.5-1.6 when he was discharged. He came in here with creatinine of 2.1 and now it is gone up to 2.7. PAST MEDICAL HISTORY 1. History of liver transplant. 2. Hypertension. 3. Hyperlipidemia. 4. Diabetes mellitus. 5. Hepatitis B and C. 6. Anxiety. 7. Depression. 8. Sclerosing cholangitis. 9. Atrial fibrillation. PAST SURGICAL HISTORY 1. History of ablation. 2. of bilateral failed liver transplant in liver transplant 2001. REVIEW OF SYSTEMS Cannot be taken since the patient is intubated. SOCIAL HISTORY The patient has history of smoking. He stopped in 1997. There is no history of heavy alcoholism. FAMILY HISTORY Noncontributory. ALLERGIES NO KNOWN DRUG ALLERGIES. MEDICATIONS Currently he is on following medications: 1. Pretty-Colace 1 tablet b.i.d. 2. Vitamin D3 1000 units b.i.d. 3. Folic acid 1 mg b.i.d. 4. Protonix 40 mg IV b.i.d. 5. Rifaximin 550 mg b.i.d. 6. Lactulose 30 ml twice a day. 7. Tacrolimus 2 mg b.i.d. 8. DuoNeb nebulizer q. 6-hour. 9. Solu-Cortef 50 milligrams q.12h. 10. Insulin sliding scale. 11. Ampicillin 3 grams q.6 h. 12. Cardizem 90 mg q. 6-hour. 13. Metronidazole q. 8-hour 500 mg IV. 14. Vancomycin 250 milligrams mg q.i.d. 15. Propofol as needed. 16. Diltiazem as needed. PHYSICAL EXAMINATION GENERAL: The patient is intubated, sedated. VITAL SIGNS: His last blood pressure was 140/75, temperature 98.9. Pulse is 98-100. He is on 40% FIO2. HEENT: Pupils are mid constricted. Conjunctivae pale. NECK: Supple. JVD is not elevated. LUNGS: The patient has bilateral decreased air entry with scattered wheezing. HEART: S1-S2. Regular rhythm. ABDOMEN: Distended. Soft. Lax. There is no tenderness. EXTREMITIES: He has bilateral 1+ leg edema. LABORATORY DATA Investigation, white blood cell count is 28.1, hemoglobin 7.6, platelet count of 129, neutrophils 91.4%. Sodium 143, potassium 3.7, chloride 105, bicarb 26.9, BUN 147, creatinine 2.72. Calcium 7.7, phosphorus 5.4. AST is 43, ALT is 24. Creatinine kinase 19. Total protein 6.3. Albumin is 2.4. INR is 1.1. Urine eosinophils none seen. This was six days ago. He has protein of 100. IMAGING STUDIES Chest x-ray was done which shows that he has small bilateral pleural effusions with some pulmonary vascular congestion. Ultrasound of the lower extremities done which showed normal examination on the right side. The left side shows that he has left cephalic vein and left basilic vein thrombus. ASSESSMENT/PLAN 1. Shock with hypotension. 2. Chronic kidney disease acute kidney injury. 3. C difficile colitis. 4. Atrial fibrillation. 5. Respiratory failure. 6. Leukocytosis. 7. Diabetes mellitus. 8. History of liver transplant. The patient has chronic kidney disease and now developed acute kidney injury. The reason for acute kidney disease most likely because of acute tubular necrosis because of hypotension and urine output has been decreasing. The patient ____ on pressors and I will put him on some gentle hydration since he is not getting any IV fluid. His edema is most likely third spacing. I will follow the urine output and BUN and creatinine. Avoid any nephrotoxins. Thank you for the consultation and I will follow the patient while he is in the hospital. MD SIMI Harris/RUBÉN /3:16 PM /3:36 PM
[2017-03-30] MEDS: SODIUM CHLOR 0.9% 1000 ML INJ 1,000 ML IV SCH (16:08)
[2017-03-30] MEDS ORDERED: TACROLIMUS 1 MG CAP PO SCH (21:00)
[2017-03-30] MEDS: HEPARIN SODIUM - SQ 10,000 UNITS/ML VIAL SQ SCH (22:15)
[2017-03-31] VITALS (42 sets, daily range): BP systolic 105–159; BP diastolic 57–92; PULSE 69–115; RESP 11–20; TEMP 97.7–98.8; O2SAT 98–100
[2017-03-31] MEDS: PROPOFOL 1000 MG/100 ML INJ 100 ML IV SCH ×2 (00:34→12:53)
[2017-03-31] MEDS: DILTIAZEM HCL 90 MG TAB PO SCH ×4 (00:34→18:03)
[2017-03-31] MEDS: HYDROCORTISONE SOD SUCCINATE 100 MG VIAL IV PUSH SCH ×2 (02:01→15:05)
[2017-03-31] MEDS: DILTIAZEM INJ 125 MG in SODIUM CHLORIDE 0.9% INJ 100 ML IV SCH ×2 (02:02→12:57)
[2017-03-31] MEDS: RESP: ALBUTEROL 2.5 MG/IPRATROPIUM 0.5 MG NEB (SCH) NEB ×4 (03:59→21:16)
[2017-03-31] MEDS: CHLORHEXIDINE GLUCONATE 2 % 1 PACK (2 CLOTHS) TOP SCH (04:00)
[2017-03-31] MEDS: HIGH DOSE INSULIN NOVOLIN REGULAR SUPPLEMENTAL SCALE SQ SCH ×6 (04:07→19:53)
[2017-03-31] MEDS: AMPICILLIN-SULBACTAM INJ 3 GM in SODIUM CHLORIDE 0.9% INJ 100 ML IV SCH ×4 (04:08→21:23)
[2017-03-31 04:30] LABS: AUTOMATED NEUTROPHIL # 20.1 TH/MM3 (1.8-7.7); HEMATOCRIT 23.3 % (39.0-51.0); LYMPH % 4.9 % (9.0-44.0); LYMPHOCYTE # 1.1 TH/MM3 (1.0-4.8); MEAN CELL VOLUME 84.2 FL (80.0-100.0); MEAN CORPUSCULAR HEMOGLOBIN 28.4 PG (27.0-34.0); MEAN CORPUSCULAR HGB CONC 33.7 % (32.0-36.0); MONO % 2.3 % (0.0-8.0); NEUT % 92.8 % (16.0-70.0); PLATELET COUNT 127 TH/MM3 (150-450); RED BLOOD COUNT 2.76 MIL/MM3 (4.50-5.90); RED CELL DISTRIBUTION WIDTH 16.2 % (11.6-17.2); WHITE BLOOD COUNT 21.7 TH/MM3 (4.0-11.0)
[2017-03-31 04:43] LABS: HEMO FLAGS AUTO DIFF
[2017-03-31 04:52] LABS: ANION GAP 11 MEQ/L (5-15); AST (GOT) 37 U/L (15-37); BICARBONATE 26.4 MEQ/L (21.0-32.0); CHLORIDE 107 MEQ/L (98-107); GLOMERULAR FILTRATION RATE 24 ML/MIN (>89); MAGNESIUM 2.1 MG/DL (1.5-2.5); POTASSIUM 3.4 MEQ/L (3.5-5.1); SODIUM (NA) 144 MEQ/L (136-145)
[2017-03-31 04:53] LABS: ALT (GPT) 23 U/L (12-78)
[2017-03-31 04:56] LABS: ALKALINE PHOSPHATASE 122 U/L (45-117); TOTAL BILIRUBIN ADULT 0.8 MG/DL (0.2-1.0)
[2017-03-31 05:01] LABS: BLOOD UREA NITROGEN 151 MG/DL (7-18)
[2017-03-31] MEDS: metroNIDAZOLE 500 MG INJ 100 ML IV SCH ×3 (06:14→21:24)
[2017-03-31 08:00] LABS: BANDS 3 % (0-6); METAMYELOCYTES 1 % (0-1); NEUTROPHIL # MANUAL DIFF 20.6 TH/MM3 (1.8-7.7); PLATELET ESTIMATE SMEAR LOW (NORMAL); PLATELET MORPHOLOGY NORMAL (NORMAL); POLYS (SEG NEUTROPHILS) 91 % (16-70); SCAN/DIFF FINAL DIFF MANUAL; WBC DIFF SAMPLE 100
[2017-03-31] MEDS: CHLORHEXIDINE 0.12% (ORAL KIT) 15 ML CUP MT SCH ×2 (08:00→19:52)
[2017-03-31] MEDS: HEPARIN SODIUM - SQ 10,000 UNITS/ML VIAL SQ SCH ×2 (08:38→19:55)
[2017-03-31] MEDS: DOCUSATE SODIUM 50 MG/SENNA 8.6 MG TAB PO SCH ×2 (08:38→19:55)
[2017-03-31] MEDS: SODIUM CHLORIDE 0.9% FLUSH 10 ML FLUSH IV FLUSH SCH ×2 (08:38→19:55)
[2017-03-31] MEDS: PANTOPRAZOLE SODIUM 40 MG VIAL IV SCH ×2 (08:38→19:54)
[2017-03-31] MEDS: LACTULOSE SYRUP 20 GM/30 ML CUP PO SCH (08:38)
[2017-03-31] MEDS: CHOLECALCIFEROL (VIT D3) 1000 UNIT TAB PO SCH ×2 (08:38→19:55)
[2017-03-31] MEDS: TACROLIMUS 1 MG CAP PO SCH ×2 (08:39→20:00)
[2017-03-31] MEDS: VANCOMYCIN 500 MG VIAL (FOR ORAL USE ONLY) PO SCH ×4 (08:39→19:55)
[2017-03-31] MEDS: RIFAXIMIN 550 MG TAB OG-TUBE SCH ×2 (08:39→19:55)
[2017-03-31] MEDS: FOLIC ACID 1 MG TAB PO SCH ×2 (08:39→19:55)
[2017-03-31] MEDS: INSULIN DETEMIR 100 UNITS/ML VIAL SQ SCH ×2 (08:41→19:57)
--- NOTE | 2017-03-31 10:15 | HHI.GIFU ---
Subjective Remarks Intubated, on ventilator, but awake and following commands. Plan is for CPAP trials today. Denies abdominal pain. Continues to have large amount of diarrhea per nurse- flexiseal was just changed, but had about 450cc overnight. ( Kenisha Lopez) Objective Vitals I&O Vital Signs Date Time Temp Pulse Resp B/P Pulse Ox O2 Delivery O2 Flow Rate FiO2 03/31/17 10:00 112 03/31/17 08:56 100 40 03/31/17 08:00 99 141/92 151/73 03/31/17 08:00 97.9 99 16 141/92 100 151/73 03/31/17 08:00 40 03/31/17 08:00 99 03/31/17 07:00 99 134/73 100 145/70 03/31/17 06:45 101 141/70 100 03/31/17 06:30 98 147/70 100 03/31/17 06:15 102 154/71 100 03/31/17 06:00 99 03/31/17 06:00 99 131/78 100 136/68 03/31/17 05:45 99 133/69 100 03/31/17 05:30 99 154/72 100 03/31/17 05:15 97 140/70 100 03/31/17 05:00 109 122/73 100 115/66 03/31/17 04:45 95 119/61 100 03/31/17 04:30 109 120/65 100 03/31/17 04:15 100 118/64 100 03/31/17 04:08 99 40 03/31/17 04:00 40 03/31/17 04:00 98.8 100 20 113/57 100 105/61 03/31/17 04:00 100 113/67 100 105/61 03/31/17 04:00 100 03/31/17 04:00 100 113/67 100 105/61 03/31/17 03:45 107 149/71 100 03/31/17 03:30 115 143/73 100 03/31/17 03:15 112 142/69 100 03/31/17 03:00 103 143/80 100 149/73 03/31/17 02:45 94 123/62 100 03/31/17 02:30 97 124/63 100 03/31/17 02:15 99 135/66 100 7/19/17 02:00 99 133/81 100 140/68 7/19/17 02:00 99 7/19/17 01:45 98 133/66 100 7/19/17 01:30 97 128/64 100 7/19/17 01:15 101 131/67 100 7/19/17 01:00 102 143/84 100 151/71 7/19/17 00:45 98 132/65 100 7/19/17 00:30 98 126/63 100 7/19/17 00:15 95 119/61 99 7/19/17 00:00 81 7/19/17 00:00 81 126/74 99 129/63 7/19/17 00:00 81 126/74 99 129/63 7/19/17 00:00 97.7 81 17 126/74 99 129/63 7/19/17 00:00 40 7/18/17 23:45 95 114/59 99 7/18/17 23:30 91 138/66 99 7/18/17 23:15 101 139/66 92 7/18/17 23:00 84 140/80 100 148/68 7/18/17 22:45 87 128/67 99 7/18/17 22:30 102 146/66 97 7/18/17 22:15 76 138/62 100 7/18/17 22:00 76 7/18/17 22:00 76 99/62 95 106/53 7/18/17 21:45 76 114/56 100 7/18/17 21:30 77 135/62 100 7/18/17 21:15 77 129/62 100 7/18/17 21:00 77 124/74 100 131/63 7/18/17 20:45 101 183/79 100 7/18/17 20:43 100 40 7/18/17 20:30 76 157/67 100 7/18/17 20:15 78 127/63 100 7/18/17 20:00 98.4 76 20 127/71 98 134/63 7/18/17 20:00 76 127/71 98 134/63 7/18/17 20:00 76 7/18/17 20:00 40 7/18/17 18:00 76 109/67 115/57 7/18/17 18:00 76 7/18/17 16:00 100 7/18/17 16:00 98.5 100 128/72 100 126/67 03/30/17 16:00 40 03/30/17 16:00 100 128/72 126/67 03/30/17 15:21 100 40 03/30/17 14:00 100 03/30/17 14:00 100 140/75 143/74 03/30/17 12:00 40 03/30/17 12:00 89 113/68 130/68 03/30/17 12:00 98.9 89 113/68 100 130/68 03/30/17 12:00 89 03/30/17 11:11 100 40 I/O 03/30/17 03/30/17 03/30/17 03/31/17 03/31/17 03/31/17 07:00 15:00 23:00 07:00 15:00 23:00 Intake Total 1115 ml 799 ml 1156 ml 1271 ml Output Total 1460 ml 1375.0 ml 1250 ml 1235 ml Balance -345 ml -576.0 ml -94 ml 36 ml Intake IV Total 726 ml 561 ml 794 ml 850 ml Tube Feeding 299 ml 148 ml 302 ml 361 ml Other 90 ml 90 ml 60 ml 60 ml Output Urine Total 500 ml 550 ml 750 ml 775 ml Stool Total 960 ml 600 ml 500 ml 460 ml Tube Feeding Residual Discard 0 ml 225.0 ml 0 ml 0 ml Laboratory Laboratory Tests Test 03/31/17 03:45 White Blood Count 21.7 Red Blood Count 2.76 Hemoglobin 7.8 Hematocrit 23.3 Mean Corpuscular Volume 84.2 Mean Corpuscular Hemoglobin 28.4 Mean Corpuscular Hemoglobin 33.7 Concent Red Cell Distribution Width 16.2 Platelet Count 127 Mean Platelet Volume 8.8 Neutrophils (%) (Auto) 92.8 Lymphocytes (%) (Auto) 4.9 Monocytes (%) (Auto) 2.3 Eosinophils (%) (Auto) 0.0 Basophils (%) (Auto) 0.0 Neutrophils # (Auto) 20.1 Lymphocytes # (Auto) 1.1 Monocytes # (Auto) 0.5 Eosinophils # (Auto) 0.0 Basophils # (Auto) 0.0 CBC Comment AUTO DIFF Differential Total Cells 100 Counted Neutrophils % (Manual) 91 Band Neutrophils % 3 Lymphocytes % 2 Monocytes % 3 Neutrophils # (Manual) 20.6 Metamyelocytes 1 Differential Comment FINAL DIFF MANUAL Platelet Estimate LOW Platelet Morphology Comment NORMAL Red Cell Morphology Comment NORMAL Sodium Level 144 Potassium Level 3.4 Chloride Level 107 Carbon Dioxide Level 26.4 Anion Gap 11 Blood Urea Nitrogen 151 Creatinine 2.63 Estimat Glomerular Filtration 24 Rate Random Glucose 145 Calcium Level 7.9 Phosphorus Level 6.2 Magnesium Level 2.1 Total Bilirubin 0.8 Aspartate Amino Transf 37 (AST/SGOT) Alanine Aminotransferase 23 (ALT/SGPT) Alkaline Phosphatase 122 Total Protein 6.5 Albumin 2.4 Imaging Last Impressions Upper Extremity Ultrasound 03/29/17 Signed Impressions: Service Date/Time: Wednesday, March 29, 2017 11:02 - CONCLUSION: Small amount of thrombus in the left cephalic vein and the left basilic vein. Right upper extremity is unremarkable . Valerio Jerome MD Lower Extremity Ultrasound 03/29/17 Signed Impressions: Service Date/Time: Wednesday, March 29, 2017 10:40 - CONCLUSION: Normal examination. Valerio Jerome MD Chest X-Ray 03/29/17 Signed Impressions: Service Date/Time: Wednesday, March 29, 2017 15:10 - CONCLUSION: Tubes and catheters are in good position. Small bilateral pleural effusions with mild persistent pulmonary vascular congestion. Valerio Jerome MD Abdomen Ultrasound 03/22/172122 Signed Impressions: Service Date/Time: Wednesday, March 22, 2017 08:14 - CONCLUSION: 1. Mild diffusely heterogeneous transplant liver echotexture with small amount of volume loss. No definitive evidence for portal venous gas or significant pneumobilia by ultrasound exam. However, examination was not specifically tailored for extended interrogation of the hepatic vasculature. 2. No sonographic evidence for intra-or extrahepatic ductal dilatation. 3. Trace ascites and small bilateral pleural effusions. Everton Cruz MD Chest CT 03/22/17 Signed Impressions: Service Date/Time: Wednesday, March 22, 2017 15:37 - CONCLUSION: There is ascites and bilateral pleural effusion and worsening left lung consolidation. Indu Cunningham MD Abdomen/Pelvis CT 03/22/17 Signed Impressions: Service Date/Time: Wednesday, March 22, 2017 15:40 - CONCLUSION: Increase in ascites and mesenteric congestion since the prior exam. Indu Cunningham MD Abdomen X-Ray 03/22/17 0000 Signed Impressions: Service Date/Time: Wednesday, March 22, 2017 07:00 - CONCLUSION: No findings characteristic of perforation. Nasogastric tube coiled within the fundus of the stomach. Emilio Snow MD Head CT 03/21/17 0000 Signed Impressions: Service Date/Time: Tuesday, March 21, 2017 23:27 - CONCLUSION: Normal examination. Valerio Jerome MD Physical Exam HEENT: Normocephalic; atraumatic CHEST: CTA, diminished, OETT to vent. CARDIAC: Irregular ABDOMEN: Soft, nondistended, nontender; hepatosplenomegaly; bowel sounds faint EXTREMITIES: Generalized edema. 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 Pt on ampicillin for acinetobacter baumannii/ Haemol bacteremia. Pt with high output (460cc last shift). On Oral vanco and flagyl. ID following. 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 He has not been seen at the [facility] and 5-10 years secondary to financial issues. Unfortunately, he cannot make an appointment to follow up at [facility] until he makes a payment of $8,000 for an outstanding balance. The tells me charles there is no way she can make this payment and that she will have to "deal with that later." We did refer patient to [facility], but patient was declined secondary to having his transplant done at [facility] and they said that he would need to follow up at [facility]. 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 Similar histologic findings can also be seen in plasma cell rich rejection. Correlation with recent BILLY, ASMA, and serum IgG level is recommended. Typical features of acute cellular rejection are not seen. There is no evidence of chronic biliary tract disease or active steatohepatitis. Labs from January 28, 2017 revealed IgG total 3887, IgG1 2359, IgG3 57, IgG4 > 300.00. BILLY negative, ASMA negative. MELD 16. Spoke to Tiana Lo at [facility] to update on patient's condition and to see if he would able to be seen at their facility ([facility] has declined patient per our outpatient referral records). Per Tiana Lo, patient will not be able to be seen or make recommendations at [facility] until they have contacted Central Appointment Scheduling and settles outstanding balance. They cannot make recommendations , as they have not seen this patient since 2007 and would need to start the whole process over again and cannot do this until the outstanding balance is settled. LFTs remain stable with T. Bili 0.8, AST 37, ALT 23, ALk Phosph 122. - Anemia. No obvious active bleeding. 7.8/23.3. Hemoccult neg. H/H stable. Protonix to BID - Coagulopathy. Stable - Sepsis with multisystem failure. Pt with bandemia, UTI/PNA. Bronchial washings with no growth 48 hours, mycobacterial culture pending, fungal culture pending urine negative for legionella and streptococcus, urine cx (-), Bcx Acinetobacter Baumannii/Haemol, rpt with no growth. ID following, on Ampicillicin. - Resp. Failure, HCAP. Abx, Nebs. Vent per [facility]. For cpap trial today - RAN with electrolyte abnormalities. Creat 2.63 . Renal following, likely acute injury secondary to acute tubular necrosis r/t hypotension. Avoid nephrotoxins. - AMS. EEG with diffusely low recording, could be medication effect as the patient was on fentanyl. No hemisphere asymmetries are noted. No epileptiform or seizure activity seen. IMPROVED. Now following commands - Hx HTN, hyperlipidemia, BPH, per attending. PLAN: - TF changed to Glucerna per CCM - Cont. Flagyl - Cont. Oral Vanco - Cont. Prograf - Cont. Xifaxan - D/C lactulose for now- high output diarrhea with cdiff - Cont. PPI - Abx per ID recommendations - Monitor labs - Supportive care - CCM following - ID following - Further recommendations to follow based on results of above - Of note, patient has been declined by [facility] secondary to having original transplant at [facility] - [facility] will not see patient or make recommendations until they have contacted the Central Appointment Office to resolve outstanding balance- aware. - Pt seen and examined by Dr. Benitez and myself and this note is written on her behalf (Kenisha Lopez) Physician Comments seen, examined agree with above if no improvement consider Dificid (Stephanie Benitez MD) Kenisha Lopez Mar 31, 2017 10:15 Stephanie Benitez MD Mar 31, 2017 15:37
[2017-03-31] MEDS: SODIUM CHLOR 0.9% 1000 ML INJ 1,000 ML IV SCH (11:20)
[2017-03-31] MEDS ORDERED: POTASSIUM CHLOR 20 MEQ PREMIX 100 ML IV ONE (12:30)
--- NOTE | 2017-03-31 12:36 | HHI.CCPN ---
Subjective Remarks/Hospital Course 67-year-old male with past medical history of primary sclerosing cholangitis with orthotopic liver transplant at [facility] in 2001, hypertension, atrial fibrillation status post ablation, hyperlipidemia, diabetes mellitus who presents to [facility] emergency department with altered mental status, fever, urinary incontinence. He was brought in by his . She states that this morning he was doing well and participated with home health physical therapy. When his returned home this evening she found him lethargic and minimally responsive. He had a cup full of mucus and when she inquired about it he stated that he had vomited. He refused ambulance transport. He had a temperature of 103 upon arrival to the emergency department. His states he told ED staff that he had experienced dysuria starting today. He has h/o BPH and UTI in the past. He has chronic low back pain. He denies headache or neck stiffness. His states he returned to his baseline mental status while in the ED and was conversant with her. He had no focal weakness and no witnessed seizure. His ED workup demonstrated U/a with moderate bacteria, 13 WBC, 2 RBC. White blood cell count was 14 with 9% bands, hemoglobin 10.5, platelets 135, AST 45, ALT 31, alkaline phosphatase 172, PT 12.3, INR 1.1 . Creatinine was 2.32 (baseline about 1.6-2), BUN 73, sodium 132 , potassium 5.2, bicarbonate 17 His initial lactic acid was 1.6. He was given Zosyn and 3 L NS bolus and admitted to the hospitalist service. He was complaining of chronic back pain and was anxious/agitated so was given Ativan 0.5 mg IV (chronically on Xanax). ED physician Dr. Orozco was called in because he became unresponsive and he was hypopneic with inadequate respirations. Sats were in the 60s. He complained to his that he could not see. He was hypotensive in 70s and post-intubation BP dropped to 60s/40s and [facility] was called. CVL was placed and he was started on levophed and vasopressin. He is awake on vent and answering questions yes/no. 03/22: patient in refractory distributive shock. I evaluated the patient multiple times throughout the day beginning around 0600 and at frequent intervals. Patient remains acidotic on maximal vasopressor therapy. I had discussions with Dr. Anaya with ID, cultures are growing out Acinetobacter. abx changed to tobra, vanc, meropenem, levaquin, unasyn. continued ivf resuscitation throughout the day guided by frequent IVC and cardiac echo. formal echo with grossly preserved LV function and mild RV dysfunction. but IVC continued to be collapsable. acute renal failure worsening and acidosis severe. started on bicarb drip. repeat CT abd/pelvis performed. I personally transported patient down to CT scanner given how severely unstable the patient was. Discussed with general surgery and interval CT scan is necessary to eval for intra-abdominal source of sepsis. interval CT without change. most likely Acinetobacter pneumonia with overwhelming septic shock. discussed with at length multiple times today regarding his life-threatening infection and his high risk of mortality. 03/23: vasopressors weaning down. patient waking up, following commands. still persistently acidotic, in multiorgan failure. renal dysfunction persists and oliguric. acinetobacter sensitivities not resulted. 03/24: off vasopressors. clinically beginning to improve. Acinetobacter is pansensitive. oliguria persists, but Cr stable and no current indication for acute HD. 03/25: went into afib RVR yesterday. given mgso4 and started aggressive forced diuresis with lasix drip at 20mg/hr. converted spontaneously back to NSR after only about 2 hours. This AM net -2.4L/24h. continues to make 200cc/hr uop. hemodynamics stable. very low-dose norepinephrine requirement. Cr stable, though RAN persists. 03/26: remains in afib, intermittently RVR. on diltiazem drip. Cr worse. uop declining. appears intravascularly dry. stopped lasix drip. wbc uptrending, but still appears nontoxic. 03/27 Afebrile, WBC 16.8 from 22k. Afib converted to sinus rhythm in 50s, discontinuing cardizem 5 mg/hr that is running. Creatinine steady at 2.75 ( previoulsy 2.8 <--2.81). UOP was in 70s this morning, now down to 50 cc/hr and 30 cc/hr. Positive fluid balance last 24 hours. Now CI 2.1 SVV 7, SVI 33. Glucose poorly controlled in 200s to 300s despite high does insulin sliding scale. Off vasopressors since this morning. 03/28 C diff positive. Started vancomycin po overnight. Tolerating tube feeds. A fib RVR in 130s this morning and initially hypotensive when went into Afib and levophed started but quickly weaned off. Restarting cardizem drip. BUN increased but creatinine relatively unchanged. UOP better with lasix yesterday and now edema slightly improved. Wean hydrocortisone. Glucose better after initiation of detemir but still 210. 03/29: Afebrile. Intermittently A. fib with RVR currently normal sinus rhythm. -4000 cc urine output has 24 hours. Arousable and intermittently following commands. 03/30: Afebrile. Intermittently in normal sinus rhythm/A. fib with RVR. Adequate prep. Increasing BUN and creatinine noted. Arousable on the ventilator and will follow commands. Tolerate CPAP 1 hour so far today. Positive BM. Increased residuals from tube feeding noted ~ 400 cc Subjective: 03/31: Currently afebrile. On PSV trial since 08:40. Tolerating tube feeds at goal rate. Back in A. fib with RVR cards drip at 10 mg an hour. Started on normal saline for gentle hydration. Arousable and following commands. Objective Vital Signs Date Time Temp Pulse Resp B/P Pulse Ox O2 Delivery O2 Flow Rate FiO2 03/31/17 12:16 99 40 03/31/17 10:00 112 147/75 146/70 03/31/17 08:00 97.9 16 Intake and Output 03/30/17 03/30/17 03/30/17 07:59 15:59 23:59 Intake Total 1115 ml 799 ml 1156 ml Output Total 1460 ml 1375.0 ml 1250 ml Balance -345 ml -576.0 ml -94 ml Result Diagram: 03/31/17 0345 03/31/17 0345 Imaging Last 72 hours Impressions Upper Extremity Ultrasound 03/29/17 0000 Signed Impressions: Service Date/Time: Wednesday, March 29, 2017 11:02 - CONCLUSION: Small amount of thrombus in the left cephalic vein and the left basilic vein. Right upper extremity is unremarkable . Valerio Jerome MD Lower Extremity Ultrasound 03/29/17 0000 Signed Impressions: Service Date/Time: Wednesday, March 29, 2017 10:40 - CONCLUSION: Normal examination. Valerio Jerome MD Chest X-Ray 03/29/17 0000 Signed Impressions: Service Date/Time: Wednesday, March 29, 2017 15:10 - CONCLUSION: Tubes and catheters are in good position. Small bilateral pleural effusions with mild persistent pulmonary vascular congestion. Valerio Jerome MD Objective Remarks GENERAL: Chronically ill-appearing 67-year-old male ,critically ill resting in bed SKIN: Warm and dry. Stage I sacral decubitus ulcer HEAD: Atraumatic. Normocephalic. EYES: Pupils equal and round, 2 mm and reactive bilaterally. No scleral icterus. No injection or drainage. ENT: Mucous membranes pink and moist. Oropharynx without erythema or exits. NECK: Trachea midline. No apparent JVD. CARDIOVASCULAR: RRR. S1, S2 no S4. Without murmur. RESPIRATORY:Coarse breath sounds in bilateral lower lung malhotra, diminished in dependent region. No wheezing appreciated GASTROINTESTINAL: Abdomen overall soft, non-tender, nondistended hypoactive bowel sounds are present. Dignishield in place with + stool in tubing : Mcpherson in place with light yellow urine output. Positive mild to moderate scrotal edema MUSCULOSKELETAL: There is muscular atrophy involving bilateral hands. Dependent edema and elbows of bilateral upper extremities. There is trace pedal edema. NEUROLOGICAL: Eyes open and makes eye contact. Nods and shakes head to simple question. Follows commands by squeezing hands and giving thumbs up to verbal commands bilaterally. Wiggles toes bilaterally to command Vascular Central Line Catheter: Yes Assessment to: Continue Date of Insertion: Mar 29, 2017 Line: Central Venous Catheter Side: Right Location: Subclavian A/P Assessment and Plan NEURO/PSYCH: Acute Vision change Acute metabolic encephalopathy- resolving. Peripheral neuropathy Chronic benzodiazepine use Chronic narcotic use Patient is currently on propofol at 7 mg/kg minutes/fentanyl drip at 100 g an hour for sedation/analgesia while intubated Goal of RASS -2 Daily sedation vacation Per prior notes, patient reported to that he could not see before intubation. ?secondary to profound hypotension and hypoperfusion. Pupils reactive, nodding head peripherally to 1-[address] brain 03/21 revealed no acute intracranial findings Will obtain MRI brain when hemodynamically stable Ammonia level -->17 EEG 03/22: severe slowing, no epileptiform activity Hold gabapentin 300 mg by mouth 3 times a day. Hold Xanax 0.5 mg every 8 hours when necessary Oxycodone 5 mg every 4 hours when necessary pain RESP: Acute hypoxic and hypercarpenic respiratory failure- History of tobacco abuse Acute healthcare associated left lower lobe pneumonia PRVC 16/550/0.9/ Currently on PSV trial 08/17 at 40% Ventilator bundle Duoneb every 6 hours. Albuterol every [address] chest 03/21 - dense consolidation of LLL with air bronchograms. Bronchoscopy with BAL lingula 03/22 - no growth to date SBT and clinically indicated. Did not tolerate yesterday CXR 03/30 with improvement in LLL consolidation. CV: Septic shock with multi system organ failure- History of atrial fibrillation status post ablation currently intermittent A fib RVR History of hypertension Hyperlipidemia Evaluated by Dr. Lovell who has recommended further increase Cardizem to 90 q6. Maintain Cardizem drip at 10 mg an hour Phenylephrine currently off. Initial troponin 0.03, mild increase to 0.06 is likely related to sepsis. Echo from 01/23/17 - +LVH, EF 60-65%. No regional wall motion abnormalities. Left atrial dilation. Echo 03/22- preserved LV function, mild RV dysfunction. collapsable IVC. Hold medications amlodipine 10 mg daily for hypertension on vasopressors, atorvastatin 40 mg daily for dyslipidemia with elevated LFTs, spironolactone 25 mg daily with acute kidney injury. Not ideal care for resumption for sotalol 80 mg twice a day/home medication Received IV Lasix 40 mg IV twice a day nicely. This currently on hold. 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 difficile Hypoalbuminemia Patient currently Glucerna 1.5@60 cc an hour/currently at goal Protonix for GI prophylaxis Patient has been followed by Dr. Mallory as outpatient. He has not been able to follow closely with [facility] due to financial reasons. states he has Prograf levels done at [place] and [facility] [place] [facility]. She states he has been referred to [facility] for possible repeat transplant due to plasma cell hepatitis but has not had followup appointment yet. Per GI notes, patient was refused for liver transplant at [facility] due to prior association with [place]. Prograf level currently 2.4. A.m. level pending 03/31. Increased to 2 mg twice a day CT abd/pelvis 03/21non-contrast - pneumobilia, fecal impaction, no free air or fluid. repeat CT abd pelvis 03/22: no change. Patient known to Dr. Mallory. GI has signed off for now, reconsult if needed. On Xifaxan 550 twice a day and lactulose 30 cc twice a day. UROLOGY: BPH Hold Proscar 5 milligrams daily Flomax 0.4 mg daily in light of hypotension. Resume when clinically indicated Maintain Mcpherson catheter FEN/RENAL: Acute on chronic kidney injury Hypokalemia Hyperphosphatemia Monitor intake and output hourly. Monitor electrolytes and replace as indicated. Urine eosinophils negative 03/24. Avoid nephrotoxic drugs Appreciate nephrology consultation. Started on normal saline at 50 cc an hour ID: Septic shock- improving LLL HCAP- Acinetobacterbaummini bacteremia C difficile diarrhea Continue Unasyn For Acinetobacter bacteremia (pansensitive) Vancomycin 500 po qid 03/29 and IV Flagyl 500 mg every 8 hours started for C. difficile 027 positive ID following: Dr. Anaya. HEME: Leukocytosis Chronic normocytic anemia Acute on chronic Thrombocytopenia Left cephalic/basilic superficial thrombus Monitor CBC daily monitor trends. Preliminary negative bilateral upper and lower extreme Dopplers ENDO: Diabetes mellitus Hyperglycemia Levemir 30 subcutaneous q12. Currently on sliding scale insulin/high regimen every 4 hours 10 units sliding scale past 24 hours Wean Hydrocortisone 50 IV q12 and continue to taper total 7 days therapy PROPH: SCDs. Resume heparin 5000 units subcutaneous twice a day Protonix 40 mg IV was daily for stress ulcer prophylaxis. ACCESS: Right subclavian central venous line placed 03/29 #3. Left radial art line 03/29 #3 CCT 30 minutes Juanito Avila MD Mar 31, 2017 12:36
--- NOTE | 2017-03-31 16:48 | HHI.NPPN ---
Subjective History of Present Illness 67-year-old male with past medical history of liver transplant in 2001, hypertension, atrial fibrillation, hyperlipidemia, diabetes mellitus, history of atrial fibrillation with ablation, chronic kidney disease was admitted on March 19 because of a lethargy and decreased responsiveness. I was called due to decrease urine out put and increasing Creatinine. Additional Remarks Patient remain on the vent. and now on CPAP, open eyes and following verbal commands. Objective Data Data 03/30/17 03/31/17 19:00 07:00 Intake Total 799 ml 2427 ml Output Total 1375.0 ml 2485.0 ml Balance -576.0 ml -58.0 ml Intake IV Total 561 ml 1644 ml Tube Feeding 148 ml 663 ml Other 90 ml 120 ml Output Urine Total 550 ml 1525 ml Stool Total 600 ml 960 ml Tube Feeding Residual Discard 225.0 ml 0 ml Vital Signs Date Time Temp Pulse Resp B/P Pulse Ox O2 Delivery O2 Flow Rate FiO2 03/31/17 16:30 98 40 03/31/17 16:00 74 131/66 146/63 03/31/17 16:00 40 03/31/17 16:00 98.4 74 12 131/66 99 146/63 03/31/17 16:00 74 03/31/17 14:00 102 03/31/17 14:00 99 132/72 147/71 03/31/17 12:16 99 40 03/31/17 12:00 102 03/31/17 12:00 40 03/31/17 12:00 102 123/71 139/69 03/31/17 12:00 98.7 102 11 123/71 99 139/69 03/31/17 10:00 112 147/75 146/70 03/31/17 10:00 112 03/31/17 08:56 100 40 03/31/17 08:00 99 141/92 151/73 03/31/17 08:00 97.9 99 16 141/92 100 151/73 03/31/17 08:00 40 03/31/17 08:00 99 03/31/17 07:00 99 134/73 100 145/70 03/31/17 06:45 101 141/70 100 03/31/17 06:30 98 147/70 100 03/31/17 06:15 102 154/71 100 7/19/17 06:00 99 17 06:00 99 131/78 100 136/68 7/19/17 05:45 99 133/69 100 19/17 05:30 99 154/72 100 03/31/17 05:15 97 140/70 100 19/17 05:00 109 122/73 100 115/66 719/17 04:45 95 119/61 100 19/17 04:30 109 120/65 100 19/17 04:15 100 118/64 100 03/31/17 04:08 99 40 03/31/17 04:00 40 17 04:00 98.8 100 20 113/57 100 105/61 7/17 04:00 100 113/67 100 105/61 03/31/17 04:00 100 03/31/17 04:00 100 113/67 100 105/61 03/31/17 03:45 107 149/71 100 03/31/17 03:30 115 143/73 100 17 03:15 112 142/69 100 17 03:00 103 143/80 100 149/73 03/31/17 02:45 94 123/62 100 19/17 02:30 97 124/63 100 03/31/17 02:15 99 135/66 100 03/31/17 02:00 99 133/81 100 140/68 03/31/17 02:00 99 17 01:45 98 133/66 100 19/17 01:30 97 128/64 100 03/31/17 01:15 101 131/67 100 03/31/17 01:00 102 143/84 100 151/71 19/17 00:45 98 132/65 100 19/17 00:30 98 126/63 100 719/17 00:15 95 119/61 99 19/17 00:00 81 03/31/17 00:00 81 126/74 99 129/63 7/19/17 00:00 81 126/74 99 129/63 7/19/17 00:00 97.7 81 17 126/74 99 129/63 7/19/17 00:00 40 718/17 23:45 95 114/59 99 7/18/17 23:30 91 138/66 99 7/18/17 23:15 101 139/66 92 03/30/17 23:00 84 140/80 100 148/68 03/30/17 22:45 87 128/67 99 03/30/17 22:30 102 146/66 97 03/30/17 22:15 76 138/62 100 03/30/17 22:00 76 03/30/17 22:00 76 99/62 95 106/53 03/30/17 21:45 76 114/56 100 03/30/17 21:30 77 135/62 100 03/30/17 21:15 77 129/62 100 03/30/17 21:00 77 124/74 100 131/63 03/30/17 20:45 101 183/79 100 03/30/17 20:43 100 40 03/30/17 20:30 76 157/67 100 03/30/17 20:15 78 127/63 100 03/30/17 20:00 98.4 76 20 127/71 98 134/63 03/30/17 20:00 76 127/71 98 134/63 03/30/17 20:00 76 03/30/17 20:00 40 03/30/17 18:00 76 109/67 115/57 03/30/17 18:00 76 -: 03/31/17 0345 03/31/17 0345 Physical Exam General Appearance: No Acute Distress, Comfortable Eyes Eye Exam: Pupils Equal Throat Throat Exam: Oral Mucosa [place] & Moist Pulmonary Resp Exam: Crackles, Rhonchi, Decreased Bases, Diminished Breath Sounds Cardiology CV Exam: Regular, Normal Sinus Rhythm Gastrointestinal/Abdomen GI Exam: Soft, Non-Tender, Bowel Sounds Present Extremeties Extremities Exam: Trace Edema Neurologic Neuro Exam: Alert, Awake Assessment/Plan Assessment Summary: RAN/Acute Renal Failure, CKD Stage III Problem List: (1) Atrial fibrillation with RVR (2) Respiratory failure (3) Shortness of breath (4) PNA (pneumonia) (5) CHF (congestive heart failure) (6) Anemia (7) Acute on chronic kidney disease, stage 3 (8) RAN (acute kidney injury) Plan Patient has stable Creatinine, in the range of 2.6-2.7. Urine out put is better. Continue gentle hydration. Continue antibiotics. Weaning as per CCM. D/W the patient's at bed side. Avoid Nephrotoxins. Problem Qualifiers (1) Respiratory failure: Qualified Code: J96.01 - Acute respiratory failure with hypoxia Sunil Maya MD Mar 31, 2017 16:48
[2017-04-01] VITALS (28 sets, daily range): BP systolic 113–157; BP diastolic 54–80; PULSE 70–81; RESP 16–18; TEMP 97.4–98.8; O2SAT 99–100
[2017-04-01] MEDS: DILTIAZEM HCL 90 MG TAB PO SCH ×4 (00:12→17:43)
[2017-04-01] MEDS: PROPOFOL 1000 MG/100 ML INJ 100 ML IV SCH ×3 (00:12→18:32)
[2017-04-01] MEDS: fentaNYL DRIP 250 ML IV SCH ×2 (02:07→21:23)
[2017-04-01] MEDS: HYDROCORTISONE SOD SUCCINATE 100 MG VIAL IV PUSH SCH ×2 (02:07→13:18)
[2017-04-01] MEDS: RESP: ALBUTEROL 2.5 MG/IPRATROPIUM 0.5 MG NEB (SCH) NEB ×4 (03:13→20:49)
[2017-04-01] MEDS: HIGH DOSE INSULIN NOVOLIN REGULAR SUPPLEMENTAL SCALE SQ SCH ×6 (03:34→20:00)
[2017-04-01] MEDS: CHLORHEXIDINE GLUCONATE 2 % 1 PACK (2 CLOTHS) TOP SCH (03:34)
[2017-04-01] MEDS: AMPICILLIN-SULBACTAM INJ 3 GM in SODIUM CHLORIDE 0.9% INJ 100 ML IV SCH ×4 (03:34→21:25)
[2017-04-01] MEDS: metroNIDAZOLE 500 MG INJ 100 ML IV SCH ×3 (05:31→21:26)
[2017-04-01] MEDS: SODIUM CHLOR 0.9% 1000 ML INJ 1,000 ML IV SCH (05:31)
[2017-04-01] MEDS: CHLORHEXIDINE 0.12% (ORAL KIT) 15 ML CUP MT SCH ×2 (08:00→20:48)
[2017-04-01] MEDS: INSULIN DETEMIR 100 UNITS/ML VIAL SQ SCH ×2 (09:00→21:14)
[2017-04-01] MEDS: SODIUM CHLORIDE 0.9% FLUSH 10 ML FLUSH IV FLUSH SCH ×2 (09:00→20:47)
[2017-04-01] MEDS: DOCUSATE SODIUM 50 MG/SENNA 8.6 MG TAB PO SCH ×2 (09:00→20:47)
[2017-04-01] MEDS: DILTIAZEM INJ 125 MG in SODIUM CHLORIDE 0.9% INJ 100 ML IV SCH (09:12)
[2017-04-01] MEDS: RIFAXIMIN 550 MG TAB OG-TUBE SCH ×2 (10:19→20:47)
[2017-04-01] MEDS: TACROLIMUS 1 MG CAP PO SCH ×2 (10:20→20:47)
[2017-04-01] MEDS: CHOLECALCIFEROL (VIT D3) 1000 UNIT TAB PO SCH ×2 (10:20→20:47)
[2017-04-01] MEDS: HEPARIN SODIUM - SQ 10,000 UNITS/ML VIAL SQ SCH ×2 (10:20→20:46)
[2017-04-01] MEDS: FOLIC ACID 1 MG TAB PO SCH ×2 (10:20→20:47)
[2017-04-01] MEDS: VANCOMYCIN 500 MG VIAL (FOR ORAL USE ONLY) PO SCH ×4 (10:21→20:46)
[2017-04-01] MEDS: PANTOPRAZOLE SODIUM 40 MG VIAL IV SCH ×2 (10:22→20:46)
--- NOTE | 2017-04-01 12:23 | HHI.NPPN ---
Subjective History of Present Illness 67-year-old male with past medical history of liver transplant in 2001, hypertension, atrial fibrillation, hyperlipidemia, diabetes mellitus, history of atrial fibrillation with ablation, chronic kidney disease was admitted on March 19 because of a lethargy and decreased responsiveness. I was called due to decrease urine out put and increasing Creatinine. Additional Remarks Patient is clinically same, remain on the vent. and on CPAP, awake. Objective Data Data 03/31/17 04/01/17 19:00 07:00 Intake Total 1326 ml 2505 ml Output Total 1300 ml 2500 ml Balance 26 ml 5 ml Intake IV Total 803 ml 1542 ml Tube Feeding 423 ml 843 ml Tube Irrigant 100 ml Other 120 ml Output Urine Total 900 ml 1500 ml Stool Total 400 ml 1000 ml Vital Signs Date Time Temp Pulse Resp B/P Pulse Ox O2 Delivery O2 Flow Rate FiO2 04/01/17 12:00 79 04/01/17 12:00 40 04/01/17 10:21 40 04/01/17 10:21 100 40 04/01/17 10:00 72 04/01/17 08:06 100 40 04/01/17 08:00 76 04/01/17 08:00 40 04/01/17 06:00 75 04/01/17 04:38 100 40 04/01/17 04:00 72 04/01/17 04:00 97.8 72 16 123/63 100 136/57 04/01/17 04:00 40 04/01/17 02:00 80 04/01/17 00:35 99 40 04/01/17 00:00 40 04/01/17 00:00 98.0 80 16 145/72 99 157/68 04/01/17 00:00 80 03/31/17 22:00 71 03/31/17 21:16 100 40 03/31/17 20:00 75 03/31/17 20:00 40 03/31/17 20:00 97.9 75 16 141/73 100 159/57 03/31/17 18:00 69 03/31/17 16:30 98 40 03/31/17 16:00 74 131/66 146/63 03/31/17 16:00 40 03/31/17 16:00 98.4 74 12 131/66 99 146/63 03/31/17 16:00 74 03/31/17 14:00 102 03/31/17 14:00 99 132/72 147/71 -: 03/31/17 0345 03/31/17 0345 Physical Exam General Appearance: No Acute Distress, Comfortable Eyes Eye Exam: Pupils Equal Throat Throat Exam: Oral Mucosa [place] & Moist Pulmonary Resp Exam: Crackles, Rhonchi, Decreased Bases, Diminished Breath Sounds Cardiology CV Exam: Regular, Normal Sinus Rhythm Gastrointestinal/Abdomen GI Exam: Soft, Non-Tender, Bowel Sounds Present Extremeties Extremities Exam: Trace Edema Neurologic Neuro Exam: Alert, Awake Assessment/Plan Assessment Summary: RAN/Acute Renal Failure, CKD Stage III Problem List: (1) Atrial fibrillation with RVR (2) Respiratory failure (3) Shortness of breath (4) PNA (pneumonia) (5) CHF (congestive heart failure) (6) Anemia (7) Acute on chronic kidney disease, stage 3 (8) RAN (acute kidney injury) Plan Patient has chronic kidney disease and develop RAN. Patient has stable Creatinine, in the range of 2.6-2.7. Urine out put is better. Continue gentle hydration. Continue antibiotics. Weaning as per CCM. Avoid Nephrotoxins. Follow the urine out put and BMP. Problem Qualifiers (1) Respiratory failure: Qualified Code: J96.01 - Acute respiratory failure with hypoxia Sunil Maya MD Apr 01, 2017 12:23
--- NOTE | 2017-04-01 15:35 | HHI.CCPN ---
Subjective Remarks/Hospital Course 67-year-old male with past medical history of primary sclerosing cholangitis with orthotopic liver transplant at [facility] in 2001, hypertension, atrial fibrillation status post ablation, hyperlipidemia, diabetes mellitus who presents to [facility] emergency department with altered mental status, fever, urinary incontinence. He was brought in by his . She states that this morning he was doing well and participated with home health physical therapy. When his returned home this evening she found him lethargic and minimally responsive. He had a cup full of mucus and when she inquired about it he stated that he had vomited. He refused ambulance transport. He had a temperature of 103 upon arrival to the emergency department. His states he told ED staff that he had experienced dysuria starting today. He has h/o BPH and UTI in the past. He has chronic low back pain. He denies headache or neck stiffness. His states he returned to his baseline mental status while in the ED and was conversant with her. He had no focal weakness and no witnessed seizure. His ED workup demonstrated U/a with moderate bacteria, 13 WBC, 2 RBC. White blood cell count was 14 with 9% bands, hemoglobin 10.5, platelets 135, AST 45, ALT 31, alkaline phosphatase 172, PT 12.3, INR 1.1 . Creatinine was 2.32 (baseline about 1.6-2), BUN 73, sodium 132 , potassium 5.2, bicarbonate 17 His initial lactic acid was 1.6. He was given Zosyn and 3 L NS bolus and admitted to the hospitalist service. He was complaining of chronic back pain and was anxious/agitated so was given Ativan 0.5 mg IV (chronically on Xanax). ED physician Dr. Orozco was called in because he became unresponsive and he was hypopneic with inadequate respirations. Sats were in the 60s. He complained to his that he could not see. He was hypotensive in 70s and post-intubation BP dropped to 60s/40s and [facility] was called. CVL was placed and he was started on levophed and vasopressin. He is awake on vent and answering questions yes/no. 03/22: patient in refractory distributive shock. I evaluated the patient multiple times throughout the day beginning around 0600 and at frequent intervals. Patient remains acidotic on maximal vasopressor therapy. I had discussions with Dr. Anaya with ID, cultures are growing out Acinetobacter. abx changed to tobra, vanc, meropenem, levaquin, unasyn. continued ivf resuscitation throughout the day guided by frequent IVC and cardiac echo. formal echo with grossly preserved LV function and mild RV dysfunction. but IVC continued to be collapsable. acute renal failure worsening and acidosis severe. started on bicarb drip. repeat CT abd/pelvis performed. I personally transported patient down to CT scanner given how severely unstable the patient was. Discussed with general surgery and interval CT scan is necessary to eval for intra-abdominal source of sepsis. interval CT without change. most likely Acinetobacter pneumonia with overwhelming septic shock. discussed with at length multiple times today regarding his life-threatening infection and his high risk of mortality. 03/23: vasopressors weaning down. patient waking up, following commands. still persistently acidotic, in multiorgan failure. renal dysfunction persists and oliguric. acinetobacter sensitivities not resulted. 03/24: off vasopressors. clinically beginning to improve. Acinetobacter is pansensitive. oliguria persists, but Cr stable and no current indication for acute HD. 03/25: went into afib RVR yesterday. given mgso4 and started aggressive forced diuresis with lasix drip at 20mg/hr. converted spontaneously back to NSR after only about 2 hours. This AM net -2.4L/24h. continues to make 200cc/hr uop. hemodynamics stable. very low-dose norepinephrine requirement. Cr stable, though RAN persists. 03/26: remains in afib, intermittently RVR. on diltiazem drip. Cr worse. uop declining. appears intravascularly dry. stopped lasix drip. wbc uptrending, but still appears nontoxic. 03/27 Afebrile, WBC 16.8 from 22k. Afib converted to sinus rhythm in 50s, discontinuing cardizem 5 mg/hr that is running. Creatinine steady at 2.75 ( previoulsy 2.8 <--2.81). UOP was in 70s this morning, now down to 50 cc/hr and 30 cc/hr. Positive fluid balance last 24 hours. Now CI 2.1 SVV 7, SVI 33. Glucose poorly controlled in 200s to 300s despite high does insulin sliding scale. Off vasopressors since this morning. 03/28 C diff positive. Started vancomycin po overnight. Tolerating tube feeds. A fib RVR in 130s this morning and initially hypotensive when went into Afib and levophed started but quickly weaned off. Restarting cardizem drip. BUN increased but creatinine relatively unchanged. UOP better with lasix yesterday and now edema slightly improved. Wean hydrocortisone. Glucose better after initiation of detemir but still 210. 03/29: Afebrile. Intermittently A. fib with RVR currently normal sinus rhythm. -4000 cc urine output has 24 hours. Arousable and intermittently following commands. 03/30: Afebrile. Intermittently in normal sinus rhythm/A. fib with RVR. Adequate prep. Increasing BUN and creatinine noted. Arousable on the ventilator and will follow commands. Tolerate CPAP 1 hour so far today. Positive BM. Increased residuals from tube feeding noted ~ 400 cc 03/31: Currently afebrile. On PSV trial since 08:40. Tolerating tube feeds at goal rate. Back in A. fib with RVR cards drip at 10 mg an hour. Started on normal saline for gentle hydration. Arousable and following commands. Subjective: 04/01: Currently afebrile. On PSV trials. Tolerating tube feeds at goal. requesting palliative care consult for goals of care. She does not desire trach at this time. Objective Vital Signs Date Time Temp Pulse Resp B/P Pulse Ox O2 Delivery O2 Flow Rate FiO2 04/01/17 14:00 70 04/01/17 13:24 99 40 04/01/17 12:00 98.6 149/70 157/64 04/01/17 08:00 17 Intake and Output 03/31/17 03/31/17 04/01/17 08:00 16:00 00:00 Intake Total 1271 ml 1326 ml 1292 ml Output Total 1235 ml 1300 ml 1350 ml Balance 36 ml 26 ml -58 ml Result Diagram: 03/31/17 0345 03/31/17 0345 Imaging Last Impressions Upper Extremity Ultrasound 03/29/17 0000 Signed Impressions: Service Date/Time: Wednesday, March 29, 2017 11:02 - CONCLUSION: Small amount of thrombus in the left cephalic vein and the left basilic vein. Right upper extremity is unremarkable . Valerio Jerome MD Lower Extremity Ultrasound 7/17/17 0000 Signed Impressions: Service Date/Time: Wednesday, March 29, 2017 10:40 - CONCLUSION: Normal examination. Valerio Jerome MD Chest X-Ray 03/29/17 Signed Impressions: Service Date/Time: Wednesday, March 29, 2017 15:10 - CONCLUSION: Tubes and catheters are in good position. Small bilateral pleural effusions with mild persistent pulmonary vascular congestion. Valerio Jerome MD Abdomen Ultrasound 03/22/172122 Signed Impressions: Service Date/Time: Wednesday, March 22, 2017 08:14 - CONCLUSION: 1. Mild diffusely heterogeneous transplant liver echotexture with small amount of volume loss. No definitive evidence for portal venous gas or significant pneumobilia by ultrasound exam. However, examination was not specifically tailored for extended interrogation of the hepatic vasculature. 2. No sonographic evidence for intra-or extrahepatic ductal dilatation. 3. Trace ascites and small bilateral pleural effusions. Everton Cruz MD Chest CT 03/22/17 Signed Impressions: Service Date/Time: Wednesday, March 22, 2017 15:37 - CONCLUSION: There is ascites and bilateral pleural effusion and worsening left lung consolidation. Indu Cunningham MD Abdomen/Pelvis CT 03/22/17 Signed Impressions: Service Date/Time: Wednesday, March 22, 2017 15:40 - CONCLUSION: Increase in ascites and mesenteric congestion since the prior exam. Indu Cunningham MD Abdomen X-Ray 03/22/17 Signed Impressions: Service Date/Time: Wednesday, March 22, 2017 07:00 - CONCLUSION: No findings characteristic of perforation. Nasogastric tube coiled within the fundus of the stomach. Emilio Snow MD Head CT 03/21/17 Signed Impressions: Service Date/Time: Tuesday, March 21, 2017 23:27 - CONCLUSION: Normal examination. Valerio Jerome MD Objective Remarks GENERAL: Chronically ill-appearing 67-year-old male ,critically ill resting in bed SKIN: Warm and dry. Stage I sacral decubitus ulcer HEAD: Atraumatic. Normocephalic. EYES: Pupils equal and round, 2 mm and reactive bilaterally. No scleral icterus. No injection or drainage. ENT: Mucous membranes pink and moist. Oropharynx without erythema or exits. NECK: Trachea midline. No apparent JVD. CARDIOVASCULAR: RRR. S1, S2 no S4. Without murmur. RESPIRATORY:Coarse breath sounds in bilateral lower lung malhotra, diminished in dependent region. No wheezing appreciated GASTROINTESTINAL: Abdomen overall soft, non-tender, nondistended hypoactive bowel sounds are present. Dignishield in place with + stool in tubing : Mcpherson in place with light yellow urine output. Positive mild to moderate scrotal edema MUSCULOSKELETAL: There is muscular atrophy involving bilateral hands. Dependent edema and elbows of bilateral upper extremities. There is trace pedal edema. NEUROLOGICAL: Eyes open and makes eye contact. Nods and shakes head to simple question. Follows commands by squeezing hands and giving thumbs up to verbal commands bilaterally. Wiggles toes bilaterally to command Date of Insertion: Mar 29, 2017 Line: Central Venous Catheter Side: Right Location: Subclavian A/P Assessment and Plan NEURO/PSYCH: Acute Vision change Acute metabolic encephalopathy- resolving. Peripheral neuropathy Chronic benzodiazepine use Chronic narcotic use Patient is currently on propofol at 10 mg/kg minutes/fentanyl drip at 100 g an hour for sedation/analgesia while intubated Goal of RASS -2 Daily sedation vacation Per prior notes, patient reported to that he could not see before intubation. ?secondary to profound hypotension and hypoperfusion. Pupils reactive, nodding head peripherally to 1-[address] brain 03/21 revealed no acute intracranial findings Will obtain MRI brain when hemodynamically stable Ammonia level -->17 EEG 03/22: severe slowing, no epileptiform activity Hold gabapentin 300 mg by mouth 3 times a day. Hold Xanax 0.5 mg every 8 hours when necessary Oxycodone 5 mg every 4 hours when necessary pain RESP: Acute hypoxic and hypercarpenic respiratory failure- History of tobacco abuse Acute healthcare associated left lower lobe pneumonia PRVC 16/550/0.9/5/40 Currently on PSV trial 08/17 at 40% Ventilator bundle Duoneb every 6 hours. Albuterol every [address] chest 03/21 - dense consolidation of LLL with air bronchograms. Bronchoscopy with BAL lingula 03/22 - no growth to date SBT and clinically indicated. Did not tolerate yesterday CXR 03/30 with improvement in LLL consolidation. CV: Septic shock with multi system organ failure- History of atrial fibrillation status post ablation currently intermittent A fib RVR History of hypertension Hyperlipidemia Evaluated by Dr. Lovell who has recommended further increase Cardizem to 90 q6. Maintain Cardizem drip at 5 mg an hour Phenylephrine currently off. Initial troponin 0.03, mild increase to 0.06 is likely related to sepsis. Echo from 01/23/17 - +LVH, EF 60-65%. No regional wall motion abnormalities. Left atrial dilation. Echo 03/22- preserved LV function, mild RV dysfunction. collapsable IVC. Hold medications amlodipine 10 mg daily for hypertension on vasopressors, atorvastatin 40 mg daily for dyslipidemia with elevated LFTs, spironolactone 25 mg daily with acute kidney injury. Not ideal care for resumption for sotalol 80 mg twice a day/home medication Received IV Lasix 40 mg IV twice a day nicely. This currently on hold. 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 difficile Hypoalbuminemia Patient currently Glucerna 1.5@60 cc an hour/currently at goal Protonix for GI prophylaxis Patient has been followed by Dr. Mallory as outpatient. He has not been able to follow closely with [facility] due to financial reasons. states he has Prograf levels [facility] at [facility] and [facility] [place] [facility]. She states he has been referred to [facility] for possible repeat transplant due to plasma cell hepatitis but has not had followup appointment yet. Per GI notes, patient was refused for liver transplant at [facility] due to prior association with [place]. Prograf level currently 2.4. A.m. level pending 03/31. Increased to 2 mg twice a day CT abd/pelvis 03/21non-contrast - pneumobilia, fecal impaction, no free air or fluid. repeat CT abd pelvis 03/22: no change. Patient known to Dr. Mallory. GI has signed off for now, reconsult if needed. On Xifaxan 550 twice a day and lactulose 30 cc twice a day. UROLOGY: BPH Hold Proscar 5 milligrams daily Flomax 0.4 mg daily in light of hypotension. Resume when clinically indicated Maintain Mcpherson catheter FEN/RENAL: Acute on chronic kidney injury Hypokalemia Hyperphosphatemia Monitor intake and output hourly. Monitor electrolytes and replace as indicated. Urine eosinophils negative 03/24. Avoid nephrotoxic drugs Appreciate nephrology consultation. Started on normal saline at 50 cc an hour ID: Septic shock- improving LLL HCAP- Acinetobacterbaummini bacteremia C difficile diarrhea Continue Unasyn For Acinetobacter bacteremia (pansensitive) Vancomycin 500 po qid 03/29 and IV Flagyl 500 mg every 8 hours started for C. difficile 027 positive ID following: Dr. Anaya. HEME: Leukocytosis Chronic normocytic anemia Acute on chronic Thrombocytopenia Left cephalic/basilic superficial thrombus Monitor CBC daily monitor trends. Preliminary negative bilateral upper and lower extreme Dopplers ENDO: Diabetes mellitus Hyperglycemia Levemir 30 subcutaneous q12. Currently on sliding scale insulin/high regimen every 4 hours 10 units sliding scale past 24 hours Wean Hydrocortisone 50 IV q12 and continue to taper total 7 days therapy PROPH: SCDs. Resume heparin 5000 units subcutaneous twice a day Protonix 40 mg IV was daily for stress ulcer prophylaxis. ACCESS: Right subclavian central venous line placed 03/29 #3. Left radial art line 03/29 #3 CCT 30 minutes Juanito Avila MD Apr 01, 2017 15:35
--- NOTE | 2017-04-01 17:42 | HHI.GIFU ---
Subjective Remarks Resting in bed in no distress. On CPAP, still having episodes of apnea. No n/ v. No abdominal pain. Stool output improving. (Kenisha Lopez) Objective Vitals I&O Vital Signs Date Time Temp Pulse Resp B/P Pulse Ox O2 Delivery O2 Flow Rate FiO2 04/01/17 17:00 71 119/60 100 130/55 04/01/17 16:26 100 40 04/01/17 16:00 74 04/01/17 16:00 97.4 70 18 129/63 100 149/61 04/01/17 16:00 40 04/01/17 15:00 70 135/73 100 153/65 04/01/17 14:00 70 04/01/17 14:00 70 130/67 99 142/60 04/01/17 13:24 99 40 04/01/17 13:00 70 113/59 100 125/54 04/01/17 12:00 98.6 80 149/70 99 157/64 04/01/17 12:00 79 04/01/17 12:00 40 04/01/17 11:00 72 135/63 100 138/59 04/01/17 10:21 40 04/01/17 10:21 100 40 04/01/17 10:00 73 130/71 100 142/62 04/01/17 10:00 72 04/01/17 09:00 75 135/68 100 144/63 04/01/17 08:06 100 40 04/01/17 08:00 98.8 81 17 137/72 100 155/69 04/01/17 08:00 76 04/01/17 08:00 40 04/01/17 08:00 81 137/72 100 155/69 04/01/17 07:00 73 134/65 100 153/63 04/01/17 06:00 75 04/01/17 04:38 100 40 04/01/17 04:00 72 04/01/17 04:00 97.8 72 16 123/63 100 136/57 04/01/17 04:00 40 04/01/17 02:00 80 04/01/17 00:35 99 40 04/01/17 00:00 40 04/01/17 00:00 98.0 80 16 145/72 99 157/68 04/01/17 00:00 80 03/31/17 22:00 71 03/31/17 21:16 100 40 03/31/17 20:00 75 03/31/17 20:00 40 03/31/17 20:00 97.9 75 16 141/73 100 159/57 03/31/17 18:00 69 I/O 03/31/17 03/31/17 03/31/17 04/01/17 04/01/17 04/01/17 07:00 15:00 23:00 07:00 15:00 23:00 Intake Total 1271 ml 1326 ml 1292 ml 1213 ml 1097 ml Output Total 1235 ml 1300 ml 1350 ml 1150 ml 950 ml Balance 36 ml 26 ml -58 ml 63 ml 147 ml Intake IV Total 850 ml 803 ml 812 ml 730 ml 700 ml Tube Feeding 361 ml 423 ml 420 ml 423 ml 397 ml Tube Irrigant 100 ml Other 60 ml 60 ml 60 ml Output Urine Total 775 ml 900 ml 750 ml 750 ml 750 ml Stool Total 460 ml 400 ml 600 ml 400 ml 200 ml Tube Feeding Residual Discard 0 ml Laboratory Laboratory Tests Test 04/01/17 03:30 Tacrolimus (Prograf) Level 5.2 Imaging Last Impressions Upper Extremity Ultrasound 03/29/17 0000 Signed Impressions: Service Date/Time: Wednesday, March 29, 2017 11:02 - CONCLUSION: Small amount of thrombus in the left cephalic vein and the left basilic vein. Right upper extremity is unremarkable . Valerio Jerome MD Lower Extremity Ultrasound 03/29/17 0000 Signed Impressions: Service Date/Time: Wednesday, March 29, 2017 10:40 - CONCLUSION: Normal examination. Valerio Jerome MD Chest X-Ray 03/29/17 0000 Signed Impressions: Service Date/Time: Wednesday, March 29, 2017 15:10 - CONCLUSION: Tubes and catheters are in good position. Small bilateral pleural effusions with mild persistent pulmonary vascular congestion. Valerio Jerome MD Abdomen Ultrasound 03/22/172122 Signed Impressions: Service Date/Time: Wednesday, March 22, 2017 08:14 - CONCLUSION: 1. Mild diffusely heterogeneous transplant liver echotexture with small amount of volume loss. No definitive evidence for portal venous gas or significant pneumobilia by ultrasound exam. However, examination was not specifically tailored for extended interrogation of the hepatic vasculature. 2. No sonographic evidence for intra-or extrahepatic ductal dilatation. 3. Trace ascites and small bilateral pleural effusions. Everton Cruz MD Chest CT 03/22/17 Signed Impressions: Service Date/Time: Wednesday, March 22, 2017 15:37 - CONCLUSION: There is ascites and bilateral pleural effusion and worsening left lung consolidation. Indu Cunningham MD Abdomen/Pelvis CT 03/22/17 Signed Impressions: Service Date/Time: Wednesday, March 22, 2017 15:40 - CONCLUSION: Increase in ascites and mesenteric congestion since the prior exam. Indu Cunningham MD Abdomen X-Ray 03/22/17 Signed Impressions: Service Date/Time: Wednesday, March 22, 2017 07:00 - CONCLUSION: No findings characteristic of perforation. Nasogastric tube coiled within the fundus of the stomach. Emilio Snow MD Head CT 03/21/17 Signed Impressions: Service Date/Time: Tuesday, March 21, 2017 23:27 - CONCLUSION: Normal examination. Valerio Jerome MD Physical Exam HEENT: Normocephalic; atraumatic CHEST: CTA, diminished, OETT to vent.(CPAP) CARDIAC: Irregular ABDOMEN: Soft, nondistended, nontender; hepatosplenomegaly; bowel sounds faint EXTREMITIES: Generalized edema. 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 Pt on ampicillin for acinetobacter baumannii/ Haemol bacteremia. On Oral vanco and flagyl. ID following. Stool output has improved since Lactulose d/c'd. 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 He has not been seen at the [facility] and 5-10 years secondary to financial issues. Unfortunately, he cannot make an appointment to follow up at [facility] until he makes a payment of $8,000 for an outstanding balance. The tells me charles there is no way she can make this payment and that she will have to "deal with that later." We did refer patient to [facility], but patient was declined secondary to having his transplant done at [facility] and they said that he would need to follow up at [facility]. 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 Similar histologic findings can also be seen in plasma cell rich rejection. Correlation with recent BILLY, ASMA, and serum IgG level is recommended. Typical features of acute cellular rejection are not seen. There is no evidence of chronic biliary tract disease or active steatohepatitis. Labs from January 28, 2017 revealed IgG total 3887, IgG1 2359, IgG3 57, IgG4 > 300.00. BILLY negative, ASMA negative. MELD 16. Spoke to Tiana Lo at [facility] to update on patient's condition and to see if he would able to be seen at their facility ([facility] has declined patient per our outpatient referral records). Per Tiana Lo, patient will not be able to be seen or make recommendations at [facility] until they have contacted Central Appointment Scheduling and settles outstanding balance. They cannot make recommendations , as they have not seen this patient since 2007 and would need to start the whole process over again and cannot do this until the outstanding balance is settled. LFTs remain stable with T. Bili 0.8, AST 37, ALT 23, ALk Phosph 122. - Anemia. No obvious active bleeding. 7.8/23.3. Hemoccult neg. H/H stable. Protonix to BID - Coagulopathy. Stable - Sepsis with multisystem failure. Pt with bandemia, UTI/PNA. Bronchial washings with no growth 48 hours, mycobacterial culture pending, fungal culture pending urine negative for legionella and streptococcus, urine cx (-), Bcx Acinetobacter Baumannii/Haemol, rpt with no growth. ID following, on Ampicillicin. Oral vanco, flagyl - Resp. Failure, HCAP. Abx, Nebs. Vent per CCM. On CPAP, still having apnea at times. - RAN with electrolyte abnormalities. Creat 2.63 yesterday. Renal following, likely acute injury secondary to acute tubular necrosis r/t hypotension. Avoid nephrotoxins. - AMS. EEG with diffusely low recording, could be medication effect as the patient was on fentanyl. No hemisphere asymmetries are noted. No epileptiform or seizure activity seen. IMPROVED. Now following commands - Hx HTN, hyperlipidemia, BPH, per attending. PLAN: - TF as tolerated - Cont. Flagyl - Cont. Oral Vanco - Cont. Prograf - Cont. Xifaxan - Cont. PPI - Cont. to hold lactulose for diarrhea- stool output has improved since this was discontinued - Abx per ID recommendations - Monitor labs - Supportive care - CCM following - ID following - Further recommendations to follow based on results of above - Of note, patient has been declined by [facility] secondary to having original transplant at [facility] - [facility] will not see patient or make recommendations until they have contacted the Central Appointment Office to resolve outstanding balance- aware. - Pt seen and examined by Dr. Benitez and myself and this note is written on her behalf (Kenisha Lopez) Kenisha Lopez Apr 01, 2017 17:42 Stephanie Benitez MD Apr 01, 2017 17:49
[2017-04-01 17:58] LABS: MEAN CELL VOLUME 85.8 FL (80.0-100.0); MEAN CORPUSCULAR HEMOGLOBIN 28.9 PG (27.0-34.0); MEAN CORPUSCULAR HGB CONC 33.8 % (32.0-36.0); PLATELET COUNT 112 TH/MM3 (150-450); RED BLOOD COUNT 2.19 MIL/MM3 (4.50-5.90); RED CELL DISTRIBUTION WIDTH 16.6 % (11.6-17.2); WHITE BLOOD COUNT 9.8 TH/MM3 (4.0-11.0)
[2017-04-01 18:20] LABS: HEMATOCRIT 18.8 % (39.0-51.0); REVIEW FLAG FINAL
[2017-04-01 18:53] LABS: BICARBONATE 25.3 MEQ/L (21.0-32.0); POTASSIUM 3.3 MEQ/L (3.5-5.1)
--- NOTE | 2017-04-01 20:08 | HHI.IDPN ---
Subjective Subjective Remarks C.diff positive 027 strain Large volume of stool, but seems to improve afebrile WBC improved down to 9.8 Antibiotics Amp/S leva IV flagyl po vanco Allergies: Coded Allergies: *MDRO Multi-Drug Resistant Organism (Verified Adverse Reaction, Unknown, ) MRSA (heel wound) - 07/23/16 MRSA PCR Screen POSITIVE-03/22/17 Objective . Vital Signs Date Time Temp Pulse Resp B/P Pulse Ox O2 Delivery O2 Flow Rate FiO2 04/01/17 18:00 72 04/01/17 18:00 74 126/62 100 136/59 04/01/17 17:00 71 119/60 100 130/55 04/01/17 16:26 100 40 04/01/17 16:00 74 04/01/17 16:00 97.4 70 18 129/63 100 149/61 04/01/17 16:00 40 04/01/17 15:00 70 135/73 100 153/65 04/01/17 14:00 70 04/01/17 14:00 70 130/67 99 142/60 04/01/17 13:24 99 40 04/01/17 13:00 70 113/59 100 125/54 04/01/17 12:00 98.6 80 149/70 99 157/64 04/01/17 12:00 79 04/01/17 12:00 40 04/01/17 11:00 72 135/63 100 138/59 04/01/17 10:21 40 04/01/17 10:21 100 40 04/01/17 10:00 73 130/71 100 142/62 04/01/17 10:00 72 04/01/17 09:00 75 135/68 100 144/63 04/01/17 08:06 100 40 04/01/17 08:00 98.8 81 17 137/72 100 155/69 04/01/17 08:00 76 04/01/17 08:00 40 04/01/17 08:00 81 137/72 100 155/69 04/01/17 07:00 73 134/65 100 153/63 04/01/17 06:00 75 04/01/17 04:38 100 40 04/01/17 04:00 72 04/01/17 04:00 97.8 72 16 123/63 100 136/57 04/01/17 04:00 40 04/01/17 02:00 80 04/01/17 00:35 99 40 04/01/17 00:00 40 04/01/17 00:00 98.0 80 16 145/72 99 157/68 04/01/17 00:00 80 03/31/17 22:00 71 03/31/17 21:16 100 40 03/31/17 03/31/17 04/01/17 15:00 23:00 07:00 Intake Total 1326 ml 1292 ml 1213 ml Output Total 1300 ml 1350 ml 1150 ml Balance 26 ml -58 ml 63 ml Intake IV Total 803 ml 812 ml 730 ml Tube Feeding 423 ml 420 ml 423 ml Tube Irrigant 100 ml Other 60 ml 60 ml Output Urine Total 900 ml 750 ml 750 ml Stool Total 400 ml 600 ml 400 ml . Laboratory Tests Test 03/31/17 04/01/17 03:45 15:30 White Blood Count 21.7 TH/MM3 9.8 TH/MM3 Red Blood Count 2.76 MIL/MM3 2.19 MIL/MM3 Hemoglobin 7.8 GM/DL 6.3 GM/DL Hematocrit 23.3 % 18.8 % Mean Corpuscular Volume 84.2 FL 85.8 FL Mean Corpuscular Hemoglobin 28.4 PG 28.9 PG Mean Corpuscular Hemoglobin 33.7 % 33.8 % Concent Red Cell Distribution Width 16.2 % 16.6 % Platelet Count 127 TH/MM3 112 TH/MM3 Mean Platelet Volume 8.8 FL 8.7 FL Neutrophils (%) (Auto) 92.8 % Lymphocytes (%) (Auto) 4.9 % Monocytes (%) (Auto) 2.3 % Eosinophils (%) (Auto) 0.0 % Basophils (%) (Auto) 0.0 % Neutrophils # (Auto) 20.1 TH/MM3 Lymphocytes # (Auto) 1.1 TH/MM3 Monocytes # (Auto) 0.5 TH/MM3 Eosinophils # (Auto) 0.0 TH/MM3 Basophils # (Auto) 0.0 TH/MM3 CBC Comment AUTO DIFF Differential Total Cells 100 Counted Neutrophils % (Manual) 91 % Band Neutrophils % 3 % Lymphocytes % 2 % Monocytes % 3 % Neutrophils # (Manual) 20.6 TH/MM3 Metamyelocytes 1 % Differential Comment FINAL DIFF MANUAL Platelet Estimate LOW Platelet Morphology Comment NORMAL Red Cell Morphology Comment NORMAL Laboratory Tests Test 03/31/17 04/01/17 03:45 15:30 Sodium Level 144 MEQ/L 152 MEQ/L Potassium Level 3.4 MEQ/L 3.3 MEQ/L Chloride Level 107 MEQ/L 114 MEQ/L Carbon Dioxide Level 26.4 MEQ/L 25.3 MEQ/L Anion Gap 11 MEQ/L 13 MEQ/L Blood Urea Nitrogen 151 MG/DL 135 MG/DL Creatinine 2.63 MG/DL 2.22 MG/DL Estimat Glomerular Filtration 24 ML/MIN 30 ML/MIN Rate Random Glucose 145 MG/DL 126 MG/DL Calcium Level 7.9 MG/DL 7.8 MG/DL Phosphorus Level 6.2 MG/DL Magnesium Level 2.1 MG/DL Total Bilirubin 0.8 MG/DL Aspartate Amino Transf 37 U/L (AST/SGOT) Alanine Aminotransferase 23 U/L (ALT/SGPT) Alkaline Phosphatase 122 U/L Total Protein 6.5 GM/DL Albumin 2.4 GM/DL Imaging Last Impressions Upper Extremity Ultrasound 03/29/17 0000 Signed Impressions: Service Date/Time: Wednesday, March 29, 2017 11:02 - CONCLUSION: Small amount of thrombus in the left cephalic vein and the left basilic vein. Right upper extremity is unremarkable . Valerio Jerome MD Lower Extremity Ultrasound 03/29/17 0000 Signed Impressions: Service Date/Time: Wednesday, March 29, 2017 10:40 - CONCLUSION: Normal examination. Valerio Jerome MD Chest X-Ray 03/29/17 0000 Signed Impressions: Service Date/Time: Wednesday, March 29, 2017 15:10 - CONCLUSION: Tubes and catheters are in good position. Small bilateral pleural effusions with mild persistent pulmonary vascular congestion. Valerio Jerome MD Abdomen Ultrasound 03/22/172122 Signed Impressions: Service Date/Time: Wednesday, March 22, 2017 08:14 - CONCLUSION: 1. Mild diffusely heterogeneous transplant liver echotexture with small amount of volume loss. No definitive evidence for portal venous gas or significant pneumobilia by ultrasound exam. However, examination was not specifically tailored for extended interrogation of the hepatic vasculature. 2. No sonographic evidence for intra-or extrahepatic ductal dilatation. 3. Trace ascites and small bilateral pleural effusions. Everton Cruz MD Chest CT 03/22/17 Signed Impressions: Service Date/Time: Wednesday, March 22, 2017 15:37 - CONCLUSION: There is ascites and bilateral pleural effusion and worsening left lung consolidation. Indu Cunningham MD Abdomen/Pelvis CT 03/22/17 Signed Impressions: Service Date/Time: Wednesday, March 22, 2017 15:40 - CONCLUSION: Increase in ascites and mesenteric congestion since the prior exam. Indu Cunningham MD Abdomen X-Ray 03/22/17 Signed Impressions: Service Date/Time: Wednesday, March 22, 2017 07:00 - CONCLUSION: No findings characteristic of perforation. Nasogastric tube coiled within the fundus of the stomach. Emilio Snow MD Head CT 03/21/17 Signed Impressions: Service Date/Time: Tuesday, March 21, 2017 23:27 - CONCLUSION: Normal examination. Valerio Jerome MD Physical Exam CONSTITUTIONAL/GENERAL: This is an adequately nourished patient, in no apparent distress. TUBES/LINES/DRAINS: SKIN: no jaundice, rashes, or lesions. Skin temperature appropriate.Non diaphoretic. EYES: Pupils reactive . + minimal scleral icterus. No injection or drainage. Fundi not examined. NECK: Trachea midline. CARDIOVASCULAR: Regular rate and rhythm + 3/6 syst murmur, no gallops, or rubs. No JVD. Periphery is poorly perfused RESPIRATORY/CHEST: Symmetric, respirations. Scattered rhonchi. GASTROINTESTINAL: Abdomen soft, no reaction to palpation, + moderately distended. No hepato-splenomegaly, or palpable masses. No guarding. Bowel sounds present. Liquid brown stool in dignishield bag GENITOURINARY: Without palpable bladder distension. Mcpherson catheter in place with clear yellow urine MUSCULOSKELETAL: Extremities without clubbing, + edema ,moderate 2+ no cyanosis . No mottling or clubbing. NEUROLOGICAL: responds to touch not opening eyes not following commnads PSYCHIATRIC: Unable to assess Assessment & Plan Remarks Sepsis, septic shock, Acinetobacter chávez S clinically improved repeat blood clx are negative Source is jean carlos bacteremiic gram negative PNA 2/2 Acinetobacter : though no growth on clx, Gstain was with GNBs LLL PNA , gram negative ? acinetobacter Acinetobacter bacteremia Acute VDRF ARF on CKD: no e/o interst nephritis - worsening UOP Immunosuppressed, sp liver transplant Critically ill, stable Severe leukocytosis with leukemoid reaction New issure: hypervirulent C.diff, severe REC's:cont Amp/sulbactam x 3 more days; will dc earlier if c.diff gets worse other option cefepime, fortaz; will avoid Rocephin in liver transplant pt 2 /2 cholestatic risks cont vanco PO, 500 cont Flagyl IV dw Celestina Branch MD Apr 01, 2017 20:08
[2017-04-01] MEDS ORDERED: SODIUM CHLOR 0.9% 250 ML INJ 250 ML IV ONE (21:00)
[2017-04-01] MEDS ORDERED: POTASSIUM CHLOR 20 MEQ PREMIX 100 ML IV ONE (21:00)
[2017-04-01] MEDS ORDERED: DEXTROSE 5% IN WATE 1000ML INJ 1,000 ML IV SCH (21:00)
[2017-04-02] VITALS (30 sets, daily range): BP systolic 123–155; BP diastolic 53–100; PULSE 69–106; RESP 16–17; TEMP 97.6–98.3; O2SAT 97–100
[2017-04-02] MEDS: DILTIAZEM HCL 90 MG TAB PO SCH ×4 (00:38→17:33)
[2017-04-02] MEDS: HYDROCORTISONE SOD SUCCINATE 100 MG VIAL IV PUSH SCH ×2 (02:22→08:43)
[2017-04-02] MEDS: PROPOFOL 1000 MG/100 ML INJ 100 ML IV SCH ×5 (02:27→22:56)
[2017-04-02] MEDS: HIGH DOSE INSULIN NOVOLIN REGULAR SUPPLEMENTAL SCALE SQ SCH ×6 (04:00→20:00)
[2017-04-02] MEDS: CHLORHEXIDINE GLUCONATE 2 % 1 PACK (2 CLOTHS) TOP SCH (04:00)
[2017-04-02] MEDS: RESP: ALBUTEROL 2.5 MG/IPRATROPIUM 0.5 MG NEB (SCH) NEB ×4 (04:17→20:08)
[2017-04-02] MEDS: AMPICILLIN-SULBACTAM INJ 3 GM in SODIUM CHLORIDE 0.9% INJ 100 ML IV SCH ×4 (04:59→21:11)
[2017-04-02] MEDS: metroNIDAZOLE 500 MG INJ 100 ML IV SCH ×3 (05:59→21:11)
[2017-04-02] MEDS: DILTIAZEM INJ 125 MG in SODIUM CHLORIDE 0.9% INJ 100 ML IV SCH (06:00)
--- NOTE | 2017-04-02 06:18 | RADRPT ---
EXAM DATE/TIME: 04/02/2017 03:55 [place] COMPARISON: CHEST SINGLE AP, March 29, 2017, 15:10. INDICATIONS : COPD, Shortness of breath MEDICAL HISTORY : Hypertension. Cirrhosis. Diabetes mellitus type II. Hepatitis B and C, Cardiovascular disease SURGICAL HISTORY : Liver transplant ENCOUNTER: Subsequent ACUITY: 1 week PAIN SCORE: Non-responsive. LOCATION: Bilateral chest FINDINGS: The cardiac silhouette is enlarged in transverse diameter. There is bilateral lower lobe atelectasis versus pneumonia. Small bilateral pleural effusions are identified. Support lines and tubes are in sa tisfactory position. CONCLUSION: 1. Bilateral lower lobe atelectasis versus pneumonia. Bilateral effusions There has been no significa nt change when compared to the prior exam. Arpit Contreras MD on April 02, 2017 at 6:16 Board Certified Radiologist. This report was verified electronically.
[2017-04-02] MEDS ORDERED: SODIUM CHLOR 0.45% 1000 ML INJ 1,000 ML IV SCH (07:30)
--- NOTE | 2017-04-02 07:32 | HHI.CCPN ---
Subjective Remarks/Hospital Course 67-year-old male with past medical history of primary sclerosing cholangitis with orthotopic liver transplant at [facility] in 2001, hypertension, atrial fibrillation status post ablation, hyperlipidemia, diabetes mellitus who presents to [facility] emergency department with altered mental status, fever, urinary incontinence. He was brought in by his . She states that this morning he was doing well and participated with home health physical therapy. When his returned home this evening she found him lethargic and minimally responsive. He had a cup full of mucus and when she inquired about it he stated that he had vomited. He refused ambulance transport. He had a temperature of 103 upon arrival to the emergency department. His states he told ED staff that he had experienced dysuria starting today. He has h/o BPH and UTI in the past. He has chronic low back pain. He denies headache or neck stiffness. His states he returned to his baseline mental status while in the ED and was conversant with her. He had no focal weakness and no witnessed seizure. His ED workup demonstrated U/a with moderate bacteria, 13 WBC, 2 RBC. White blood cell count was 14 with 9% bands, hemoglobin 10.5, platelets 135, AST 45, ALT 31, alkaline phosphatase 172, PT 12.3, INR 1.1 . Creatinine was 2.32 (baseline about 1.6-2), BUN 73, sodium 132 , potassium 5.2, bicarbonate 17 His initial lactic acid was 1.6. He was given Zosyn and 3 L NS bolus and admitted to the hospitalist service. He was complaining of chronic back pain and was anxious/agitated so was given Ativan 0.5 mg IV (chronically on Xanax). ED physician Dr. Orozco was called in because he became unresponsive and he was hypopneic with inadequate respirations. Sats were in the 60s. He complained to his that he could not see. He was hypotensive in 70s and post-intubation BP dropped to 60s/40s and [facility] was called. CVL was placed and he was started on levophed and vasopressin. He is awake on vent and answering questions yes/no. 03/22: patient in refractory distributive shock. I evaluated the patient multiple times throughout the day beginning around 0600 and at frequent intervals. Patient remains acidotic on maximal vasopressor therapy. I had discussions with Dr. Anaya with ID, cultures are growing out Acinetobacter. abx changed to tobra, vanc, meropenem, levaquin, unasyn. continued ivf resuscitation throughout the day guided by frequent IVC and cardiac echo. formal echo with grossly preserved LV function and mild RV dysfunction. but IVC continued to be collapsable. acute renal failure worsening and acidosis severe. started on bicarb drip. repeat CT abd/pelvis performed. I personally transported patient down to CT scanner given how severely unstable the patient was. Discussed with general surgery and interval CT scan is necessary to eval for intra-abdominal source of sepsis. interval CT without change. most likely Acinetobacter pneumonia with overwhelming septic shock. discussed with at length multiple times today regarding his life-threatening infection and his high risk of mortality. 03/23: vasopressors weaning down. patient waking up, following commands. still persistently acidotic, in multiorgan failure. renal dysfunction persists and oliguric. acinetobacter sensitivities not resulted. 03/24: off vasopressors. clinically beginning to improve. Acinetobacter is pansensitive. oliguria persists, but Cr stable and no current indication for acute HD. 03/25: went into afib RVR yesterday. given mgso4 and started aggressive forced diuresis with lasix drip at 20mg/hr. converted spontaneously back to NSR after only about 2 hours. This AM net -2.4L/24h. continues to make 200cc/hr uop. hemodynamics stable. very low-dose norepinephrine requirement. Cr stable, though RAN persists. 03/26: remains in afib, intermittently RVR. on diltiazem drip. Cr worse. uop declining. appears intravascularly dry. stopped lasix drip. wbc uptrending, but still appears nontoxic. 03/27 Afebrile, WBC 16.8 from 22k. Afib converted to sinus rhythm in 50s, discontinuing cardizem 5 mg/hr that is running. Creatinine steady at 2.75 ( previoulsy 2.8 <--2.81). UOP was in 70s this morning, now down to 50 cc/hr and 30 cc/hr. Positive fluid balance last 24 hours. Now CI 2.1 SVV 7, SVI 33. Glucose poorly controlled in 200s to 300s despite high does insulin sliding scale. Off vasopressors since this morning. 03/28 C diff positive. Started vancomycin po overnight. Tolerating tube feeds. A fib RVR in 130s this morning and initially hypotensive when went into Afib and levophed started but quickly weaned off. Restarting cardizem drip. BUN increased but creatinine relatively unchanged. UOP better with lasix yesterday and now edema slightly improved. Wean hydrocortisone. Glucose better after initiation of detemir but still 210. 03/29: Afebrile. Intermittently A. fib with RVR currently normal sinus rhythm. -4000 cc urine output has 24 hours. Arousable and intermittently following commands. 03/30: Afebrile. Intermittently in normal sinus rhythm/A. fib with RVR. Adequate prep. Increasing BUN and creatinine noted. Arousable on the ventilator and will follow commands. Tolerate CPAP 1 hour so far today. Positive BM. Increased residuals from tube feeding noted ~ 400 cc 03/31: Currently afebrile. On PSV trial since 08:40. Tolerating tube feeds at goal rate. Back in A. fib with RVR cards drip at 10 mg an hour. Started on normal saline for gentle hydration. Arousable and following commands. 04/01: Currently afebrile. On PSV trials. Tolerating tube feeds at goal. requesting palliative care consult for goals of care. She does not desire trach at this time. Subjective: 04/02: Afebrile. On ventilator overnight. Received PRBCs overnight and IV fluids adjusted due to hemoglobin 6.3 and sodium 152. No active bleeding noted. Arousable the ventilator will follow commands. Tolerating PSV trials 4 hours yesterday. Objective Vital Signs Date Time Temp Pulse Resp B/P Pulse Ox O2 Delivery O2 Flow Rate FiO2 04/02/17 04:13 99 40 04/02/17 04:00 80 04/02/17 04:00 97.8 123/72 134/59 04/01/17 20:48 Ventilator 04/01/17 16:00 18 Intake and Output 04/01/17 04/01/17 04/01/17 07:59 15:59 23:59 Intake Total 1213 ml 1097 ml 1184 ml Output Total 1150 ml 950 ml 1100 ml Balance 63 ml 147 ml 84 ml Result Diagram: 04/01/17 1530 04/01/17 1530 Imaging Last Impressions Chest X-Ray 04/02/17 0600 Signed Impressions: Service Date/Time: Sunday, April 02, 2017 03:55 - CONCLUSION: 1. Bilateral lower lobe atelectasis versus pneumonia. Bilateral effusions There has been no significant change when compared to the prior exam. Arpit Contreras MD Upper Extremity Ultrasound 03/29/17 0000 Signed Impressions: Service Date/Time: Wednesday, March 29, 2017 11:02 - CONCLUSION: Small amount of thrombus in the left cephalic vein and the left basilic vein. Right upper extremity is unremarkable . Valerio Jerome MD Lower Extremity Ultrasound 03/29/17 0000 Signed Impressions: Service Date/Time: Wednesday, March 29, 2017 10:40 - CONCLUSION: Normal examination. Valerio Jerome MD Abdomen Ultrasound 03/22/172122 Signed Impressions: Service Date/Time: Wednesday, March 22, 2017 08:14 - CONCLUSION: 1. Mild diffusely heterogeneous transplant liver echotexture with small amount of volume loss. No definitive evidence for portal venous gas or significant pneumobilia by ultrasound exam. However, examination was not specifically tailored for extended interrogation of the hepatic vasculature. 2. No sonographic evidence for intra-or extrahepatic ductal dilatation. 3. Trace ascites and small bilateral pleural effusions. Everton Cruz MD Chest CT 03/22/17 Signed Impressions: Service Date/Time: Wednesday, March 22, 2017 15:37 - CONCLUSION: There is ascites and bilateral pleural effusion and worsening left lung consolidation. Indu Cunningham MD Abdomen/Pelvis CT 03/22/17 Signed Impressions: Service Date/Time: Wednesday, March 22, 2017 15:40 - CONCLUSION: Increase in ascites and mesenteric congestion since the prior exam. Indu Cunningham MD Abdomen X-Ray 03/22/17 Signed Impressions: Service Date/Time: Wednesday, March 22, 2017 07:00 - CONCLUSION: No findings characteristic of perforation. Nasogastric tube coiled within the fundus of the stomach. Emilio Snow MD Head CT 03/21/17 0000 Signed Impressions: Service Date/Time: Tuesday, March 21, 2017 23:27 - CONCLUSION: Normal examination. Valerio Jerome MD Objective Remarks GENERAL: Chronically ill-appearing 67-year-old male, critically ill resting in bed in no acute distress SKIN: Warm and dry. Stage I sacral decubitus ulcer stable HEAD: Atraumatic. Normocephalic. EYES: Pupils equal and round, 2 mm and reactive bilaterally. No scleral icterus. No injection or drainage. ENT: Mucous membranes pink and moist. Oropharynx without erythema or exits. NECK: Trachea midline. No apparent JVD. CARDIOVASCULAR: RRR. S1, S2 no S4. Without murmur. RESPIRATORY:Coarse breath sounds in bilateral lower lung malhotra, diminished in dependent region. No wheezing appreciated GASTROINTESTINAL: Abdomen overall soft, non-tender, nondistended hypoactive bowel sounds are present. Dignishield in place with + stool in tubing : Mcpherson in place with light yellow urine output. Positive mild to moderate scrotal edema MUSCULOSKELETAL: There is muscular atrophy involving bilateral hands. Dependent edema and elbows of bilateral upper extremities. There is trace pedal edema. NEUROLOGICAL: Eyes open and makes eye contact. Nods and shakes head to simple question. Follows commands by squeezing hands and giving thumbs up to verbal commands bilaterally. Wiggles toes bilaterally to command Urinary Catheter: Yes Assessment to: Continue Mcpherson insert reason: Prolonged Immobilization Vascular Central Line Catheter: Yes Date of Insertion: Mar 29, 2017 Line: Central Venous Catheter Side: Right Location: Subclavian A/P Assessment and Plan NEURO/PSYCH: Acute Vision change Acute metabolic encephalopathy- resolving. Peripheral neuropathy Chronic benzodiazepine use Chronic narcotic use Patient is currently on propofol at 30 mg/kg minutes/fentanyl drip at 120 g an hour for sedation/analgesia while intubated Goal of RASS -2 Daily sedation vacation Per prior notes, patient reported to that he could not see before intubation. ?secondary to profound hypotension and hypoperfusion. Pupils reactive, nodding head peripherally to 1-[address] brain 03/21 revealed no acute intracranial findings MRI brain today Ammonia level -->17 EEG 03/22: severe slowing, no epileptiform activity Hold gabapentin 300 mg by mouth 3 times a day. Hold alprazolam 0.5 mg every 8 hours when necessary Oxycodone liquid 5 mg every 4 hours when necessary pain RESP: Acute hypoxic and hypercarpenic respiratory failure- History of tobacco abuse Acute healthcare associated left lower lobe pneumonia PRVC 16/550/0.9/5/40 Yesterday on PSV trial 12/5 at 40% Ventilator bundle Albuterol/ipratropium nebulizers every 6 hours. Albuterol nebulizers every [address] chest 03/21 - dense consolidation of LLL with air bronchograms. Bronchoscopy with BAL lingula 03/22 - no growth to date SBT as clinically indicated as above CXR 04/02 reveals bilateral infiltrates and bilateral pleural effusions. CV: Septic shock with multi system organ failure- resolved History of atrial fibrillation status post ablation currently intermittent A fib RVR now in normal sinus rhythm History of hypertension Hyperlipidemia Evaluated by Dr. Lovell who has recommended maintenance Cardizem to 90 q6. Maintain Cardizem drip at 5 mg an hour Phenylephrine currently off within 24 hours Initial troponin 0.03, mild increase to 0.06 is likely related to sepsis. Echo from 01/23/17 - +LVH, EF 60-65%. No regional wall motion abnormalities. Left atrial dilation. Echo 03/22- preserved LV function, mild RV dysfunction. collapsable IVC. Hold medications amlodipine 10 mg daily for hypertension on vasopressors, atorvastatin 40 mg daily for dyslipidemia with elevated LFTs, spironolactone 25 mg daily with acute kidney injury. Not ideal care for resumption for sotalol 80 mg twice a day/home medication Received IV Lasix 40 mg IV twice a day previously. This currently on hold due to elevated BUN/creatinine. 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 difficile Hypoalbuminemia Patient currently Glucerna 1.5@60 cc an hour/currently at goal Metoprolol 40 mg IV twice a day Patient has been followed by Dr. Mallory as outpatient. He has not been able to follow closely with [facility] due to financial reasons. states he has Prograf levels done at [place] and [facility]. She states he has been referred to [facility] for possible repeat transplant due to plasma cell hepatitis but has not had followup appointment yet. Per GI notes, patient was refused for liver transplant at [facility] due to prior association with [facility]. Prograf level currently 5.2. A.m. level pending 04/01. Currently on 1 mg twice a day CT abd/pelvis 03/21non-contrast - pneumobilia, fecal impaction, no free air or fluid. repeat CT abd pelvis 03/22: no change. Patient known to Dr. Mallory. GI has signed off for now, reconsult if needed. On Xifaxan 550 twice a day and lactulose 30 cc twice a day. UROLOGY: BPH Hold Proscar 5 milligrams daily Flomax 0.4 mg daily in light of hypotension. Resume when clinically indicated Maintain Mcpherson catheter FEN/RENAL: Acute on chronic kidney injury Hypernatremia Hypokalemia Hyperphosphatemia Monitor intake and output hourly. Monitor electrolytes and replace as indicated. Urine eosinophils negative 03/24. Avoid nephrotoxic drugs Appreciate nephrology consultation. Started on one half normal saline at 50 cc an hour with free water 200 cc every 6 hours Start on PhosLo 667 mg by mouth 3 times a day phosphorus binder recheck in a.m. phosphorus Awaiting a.m. laboratories prior to replacing potassium ID: Septic shock-resolved LLL HCAP- Acinetobacterbaummini bacteremia C difficile diarrhea Continue Unasyn For Acinetobacter bacteremia (pansensitive) and 2 more days per IDs notes Vancomycin 500 po qid 03/29 and IV Flagyl 500 mg every 8 hours started for C. difficile 027 positive ID following: Dr. Anaya. HEME: Leukocytosis Chronic normocytic anemia Acute on chronic Thrombocytopenia Left cephalic/basilic superficial thrombus Monitor CBC daily monitor trends. Preliminary bilateral upper extremity Dopplers revealed left cephalic/basilic superficial thrombus. Treated with DVT prophylaxis Transfuse 1 unit PRBCs 04/01 a.m. labs pending still ENDO: Diabetes mellitus Hyperglycemia Insulin Detemir 30 units subcutaneous q12. Currently on sliding scale insulin/high regimen every 4 hours 0 units sliding scale past 24 hours Wean Hydrocortisone 50 IV daily and continue to discontinue 04/04 PROPH: SCDs. Continue heparin 5000 units subcutaneous twice a day Pantoprazole 40 mg IV twice a day ACCESS: Right subclavian central venous line placed 03/29 #4. Left radial art line 03/29 #4 CCT 30 minutes Juanito Avila MD Apr 02, 2017 07:31
[2017-04-02 08:19] LABS: AUTOMATED NEUTROPHIL # 9.6 TH/MM3 (1.8-7.7); BASOPHIL % 0.2 % (0.0-2.0); EOSINOPHIL % 0.3 % (0.0-4.0); LYMPH % 5.7 % (9.0-44.0); LYMPHOCYTE # 0.6 TH/MM3 (1.0-4.8); MEAN CORPUSCULAR HEMOGLOBIN 29.2 PG (27.0-34.0); MEAN CORPUSCULAR HGB CONC 34.3 % (32.0-36.0); MONO % 4.8 % (0.0-8.0); PLATELET COUNT 121 TH/MM3 (150-450); RED BLOOD COUNT 2.59 MIL/MM3 (4.50-5.90); RED CELL DISTRIBUTION WIDTH 16.4 % (11.6-17.2); WHITE BLOOD COUNT 10.7 TH/MM3 (4.0-11.0)
[2017-04-02 08:21] LABS: HEMO FLAGS AUTO DIFF
[2017-04-02] MEDS: CALCIUM ACETATE 667 MG CAP PO SCH ×3 (08:41→17:33)
[2017-04-02] MEDS: FOLIC ACID 1 MG TAB PO SCH ×2 (08:41→21:08)
[2017-04-02] MEDS: TACROLIMUS 1 MG CAP PO SCH ×2 (08:41→21:10)
[2017-04-02] MEDS: RIFAXIMIN 550 MG TAB OG-TUBE SCH ×2 (08:41→21:08)
[2017-04-02] MEDS: CHOLECALCIFEROL (VIT D3) 1000 UNIT TAB PO SCH ×2 (08:41→21:10)
[2017-04-02 08:42] LABS: ALT (GPT) 22 U/L (12-78); ANION GAP 13 MEQ/L (5-15); AST (GOT) 33 U/L (15-37); BICARBONATE 27.1 MEQ/L (21.0-32.0); BLOOD UREA NITROGEN 135 MG/DL (7-18); CHLORIDE 114 MEQ/L (98-107); GLOMERULAR FILTRATION RATE 35 ML/MIN (>89); MAGNESIUM 2.4 MG/DL (1.5-2.5); POTASSIUM 3.2 MEQ/L (3.5-5.1); SODIUM (NA) 154 MEQ/L (136-145)
[2017-04-02] MEDS: HEPARIN SODIUM - SQ 10,000 UNITS/ML VIAL SQ SCH ×2 (08:42→21:10)
[2017-04-02] MEDS: VANCOMYCIN 500 MG VIAL (FOR ORAL USE ONLY) PO SCH ×4 (08:42→21:10)
[2017-04-02] MEDS: PANTOPRAZOLE SODIUM 40 MG VIAL IV SCH ×2 (08:42→21:08)
[2017-04-02] MEDS: DOCUSATE SODIUM 50 MG/SENNA 8.6 MG TAB PO SCH ×2 (08:44→21:10)
[2017-04-02] MEDS: INSULIN DETEMIR 100 UNITS/ML VIAL SQ SCH ×2 (08:44→21:00)
[2017-04-02 08:45] LABS: ALKALINE PHOSPHATASE 99 U/L (45-117); TOTAL BILIRUBIN ADULT 0.5 MG/DL (0.2-1.0)
[2017-04-02] MEDS: CHLORHEXIDINE 0.12% (ORAL KIT) 15 ML CUP MT SCH ×2 (08:45→21:07)
[2017-04-02] MEDS: SODIUM CHLORIDE 0.9% FLUSH 10 ML FLUSH IV FLUSH SCH ×2 (08:45→21:08)
[2017-04-02] MEDS: FREE WATER G-TUBE SCH ×2 (08:46→17:33)
[2017-04-02 08:48] LABS: BANDS 5 % (0-6); NEUTROPHIL # MANUAL DIFF 9.7 TH/MM3 (1.8-7.7); POLYS (SEG NEUTROPHILS) 86 % (16-70); SCAN/DIFF FINAL DIFF MANUAL; WBC DIFF SAMPLE 100
[2017-04-02 08:49] LABS: OVALOCYTES 1+ (NORMAL); PLATELET ESTIMATE SMEAR LOW (NORMAL); PLATELET MORPHOLOGY NORMAL (NORMAL)
[2017-04-02 09:01] LABS: CREATINE KINASE 26 U/L (39-308)
--- NOTE | 2017-04-02 09:07 | PD.CONS ---
Consult Service Palliative Care . Consult Requested By Dr. Avila . Primary Care Physician [facility] Reason for Consultation a. To assist with evaluation and management of symptoms including: b. To assist medical decision maker(s) with: better understanding of current medical conditions; weighing benefits/burdens of medical treatment options; making medical treatment decisions. HPI History of Present Illness Mr. St is a 67 year old male with past medical history of primary sclerosing cholangitis post liver transplant at [facility] in 2001, hypertension, atrial fibrillation status post ablation, anxiety, BPH, chronic back pain, hyperlipidemia and diabetes mellitus. Patient presented to [facility] ER on 03/21/17 with altered mental status, fever and UTI. Patient was participating with home PT earlier in the day, that evening he was lethargic and minimally responsive. Upon arrival to the ER his temp was 103. Additional findings included: * urinalysis with moderate bacteria, WBC and RBC. * WBC 14 with 9% bands, hemoglobin 10.5, platelets 135 * AST 45, ALT 31, alkaline phosphatase 172 * PT 12.3, INR 1.1 * Creatinine was 2.32 (baseline about 1.6-2), BUN 73, sodium 132, potassium 5.2 , bicarbonate 17 * Lactic acid 1.6 * Ammonia 28 * CT brain - negative * CT chest - dense consolidation of LLL with air bronchograms * CT abd/pelvis non-contrast - pneumobilia, fecal impaction, no free air or fluid, concerning for mesenteric ischemia/perforation. Patient was admitted for UTI, sepsis. He was started on Zosyn and given 3 L NS bolus. He was complaining of chronic back pain and was anxious/agitated so was given Ativan 0.5 mg IV (chronically on Xanax). ED physician Dr. Orozco was called in because he became unresponsive and he was hypopneic with inadequate respirations. Sats were in the 60s. Patient was intubated and placed on mechanical ventilation. He complained to his that he could not see. He was hypotensive in 70s and post-intubation BP dropped to 60s/40s. He was started on Levophed and Vasopressin. Hospital course summary as per laboratory mechanic helper notes: * 03/22/17 - patient remained in refractory shock but acidotic on maximal vasopressor support. Infectious disease, Dr. Anaya following. Cultures positive Acinetobacter on tobramycin, vancomycin, meropenem, Levaquin and unison. Echocardiogram grossly preserved LV function and mild RV dysfunction. Worsening renal failure and acidosis, bicarb started. Gastroenterology, Dr. Tate was consulted. * 03/24/17 - A. Fib with RVR converted spontaneously to NSR after 2 hours. Off vasopressors, some clinical improvement. Acinetobacter is pansensitive. * 03/26/17 - remains in A. Fib, intermittently RVR on diltiazem drip. Creatinine worse, UOP decreasing. Increasing WBC. * 03/27/17 - Afebrile, WBC 16.8 from 22k. Afib converted to sinus rhythm in 50s, discontinuing cardizem 5 mg/hr that is running. Creatinine steady at 2.75 ( previoulsy 2.8 <--2.81). UOP was in 70s this morning, now down to 50 cc/hr and 30 cc/hr. Positive fluid balance last 24 hours. Now CI 2.1 SVV 7, SVI 33. Glucose poorly controlled in 200s to 300s despite high does insulin sliding scale. Off vasopressors since this morning. * 03/28/17 - C diff positive. Started vancomycin po overnight. Tolerating tube feeds. A fib RVR in 130s this morning and initially hypotensive when went into Afib and levophed started but quickly weaned off. Restarting cardizem drip. BUN increased but creatinine relatively unchanged. UOP better with lasix yesterday and now edema slightly improved. Wean hydrocortisone. Glucose better after initiation of detemir but still 210. * 03/29/17 - Afebrile. Intermittently A. fib with RVR currently normal sinus rhythm. -4000 cc urine output has 24 hours. Arousable and intermittently following commands. * 03/30/17 - Afebrile. Intermittently in normal sinus rhythm/A. fib with RVR. Adequate prep. Increasing BUN and creatinine noted. Arousable on the ventilator and will follow commands. Tolerate CPAP 1 hour so far today. Positive BM. Increased residuals from tube feeding noted ~ 400 cc. Nephrology, Dr. Maya was consulted for elevated BUN/creatinine and decreased UOP likely secondary to acute tubular necrosis due to hypotension recommend gentle hydration and avoidance of nephrotoxins. * 03/31/17 - Currently afebrile. On PSV trial since 08:40. Tolerating tube feeds at goal rate. Back in A. fib with RVR cards drip at 10 mg an hour. Started on normal saline for gentle hydration. Arousable and following commands. * 04/01/17 - Currently afebrile. On PSV trials. Tolerating tube feeds at goal. requesting palliative care consult for goals of care. She does not desire trach at this time. * 04/02/17 - Afebrile. On ventilator overnight. Received PRBCs overnight and IV fluids adjusted due to hemoglobin 6.3 and sodium 152. No active bleeding noted. Arousable the ventilator will follow commands. Tolerating PSV trials 4 hours yesterday. Palliative care is consulted to assist with further clarification of treatment goals. . Function/Cognitive Trajectory Was discharged to her [facility] after last hospitalization. Has been home for about 2 weeks and getting home health physical therapy, was able to pivot. . Review of Systems ROS Limitations: Intubated, Altered Mental Status (presented with altered mental status) Constitutional: COMPLAINS OF: Fatigue, Change in appetite (decreased), Pain, Generalized weakness Respiratory: COMPLAINS OF: Shortness of breath Cardiovascular: COMPLAINS OF: Lower Extremity Edema Gastrointestinal: COMPLAINS OF: Abdominal pain, Diarrhea, Anorexia Musculoskeletal: COMPLAINS OF: Back pain Hematologic/Lymphatics: COMPLAINS OF: Bruising Neurologic: COMPLAINS OF: Poor Balance Psychiatric: COMPLAINS OF: Anxiety, Confusion (on admission), Depression ( tearful) Other ROS: ROS per family and EMR review Past Family Social History Coded Allergies: *MDRO Multi-Drug Resistant Organism (Verified Adverse Reaction, Unknown, ) MRSA (heel wound) - 07/23/16 MRSA PCR Screen POSITIVE-03/22/17 Past Medical History Status post liver transplant 2001 Liver cirrhosis Plasma cell hepatitis Ascites Impression Chronic kidney disease Diabetes Dysphagia Gastritis GERD Hypertension Hyperlipidemia Insomnia 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 Past Surgical History Colonoscopy (10/30/16) normal colonoscopy, retroflex views revealed internal grade 2 hemorrhoids, a digital rectal exam was performed and revealed medium external hemorrhoids EGD (10/30/16) gastritis was found in the gastric antrum, sessile polyp ranging between 3-5 mm in size was found in the gastric antrum, retroflexed views revealed no abnormalities. Pathology hyperplastic polyp negative for Helicobacter Liver transplant Liver biopsy . Reported Medications Reported Meds & Active Scripts Active Roxicodone (Oxycodone HCl) 5 Mg Tab 5 Mg PO Q6H PRN Novolog Inj (Insulin Aspart) 1,000 Unit/10 Ml Vial 2-12 Units SQ ACHS Max dose at bedtime (10) units; sugars less than 70,(0) units; sugars 150-199,(2) units; sugars 200-249,(4) units; sugars 250-299,(7) units; sugars 300-349,(10) units; sugars greater than 349,(12)units Ambien (Zolpidem Tartrate) 10 Mg Tab 10 Mg PO HS PRN Sorine (Sotalol HCl) 80 Mg Tab 80 Mg PO Q12HR Neurontin (Gabapentin) 300 Mg Cap 300 Mg PO TID Furosemide 40 Mg Tab 40 Mg PO DAILY Atorvastatin (Atorvastatin Calcium) 40 Mg Tab 40 Mg PO HS Norvasc (Amlodipine Besylate) 5 Mg Tab 10 Mg PO DAILY Xanax (Alprazolam) 0.5 Mg Tab 0.5 Mg PO Q8H PRN Reported D3 (Cholecalciferol) 1,000 Unit Tab 1,000 Units PO BID Folic Acid 1 Mg Tablet 1 Mg PO BID Magnesium 250 Mg Tab 500 Mg PO Q3D Lantus Inj (Insulin Glargine) 1,000 Unit/10 Ml Vial 1 Units SQ HS Spironolactone 25 Mg Tab 25 Mg PO DAILY Proscar (Finasteride) 5 Mg Tab 5 Mg PO HS Do not crush. Omeprazole 20 Mg Tab 20 Mg PO DAILYAC Prograf (Tacrolimus) 1 Mg Cap 2 Mg PO BID Ecotrin Low Strength (Aspirin) 81 Mg Tabdr 81 Mg PO DAILY Tamsulosin (Tamsulosin HCl) 0.4 Mg Cap 0.4 Mg PO HS . Current Medications Medications (Trade) Dose Ordered Sig/Herb Route Start Time Stop Time Status Last Admin (Tylenol) 650 mg Q4H PRN PO 03/21/17 20:30 Naloxone HCl 0.4 mg 0.4 mg UNSCH PRN IV 03/21/17 20:30 (fentaNYL DRIP) 250 ml @ 0 mls/hr TITRATE IV 03/21/17 21:15 04/01/17 21:23 (NS Flush) 2 ml UNSCH PRN IV FLUSH 03/21/17 22:00 03/26/17 14:37 (NS Flush) 2 ml BID IV FLUSH 03/22/17 09:00 04/01/17 20:47 (Zofran Inj) 4 mg Q6H PRN IV 03/21/17 22:00 Miscellaneous Information 1 Q361D XX 03/21/17 22:00 (Chlorhexidine 2% Cloth) Taper DAILY@04 TOP 03/22/17 04:00 03/18/18 03:59 03/26/17 03:30 (Chlorhexidine 2% Cloth) 3 pack UNSCH PRN TOP 03/21/17 22:00 (Pretty-Colace) 1 tab BID PO 03/22/17 09:00 04/01/17 20:47 (Senokot) 17.2 mg Q12H PRN PO 03/21/17 22:00 03/24/17 08:12 (Dulcolax Supp) 10 mg DAILY PRN RECTAL 03/21/17 22:00 (Vitamin D3) 1,000 units BID PO 03/22/17 09:00 04/01/17 20:47 (Folate) 1 mg BID PO 03/22/17 09:00 04/01/17 20:47 (Peridex 0.12% Liq) 15 ml BID@08,20 MT 03/22/17 08:00 04/01/17 20:48 (D50w (Vial) Inj) 25 ml UNSCH PRN IV PUSH 03/23/17 10:00 (Glucagon Inj) 1 mg UNSCH PRN OTHER 03/23/17 10:00 (NovoLIN R SUPPLEMENTAL SCALE) 1 Q4H SQ 03/23/17 12:00 03/31/17 04:07 (Protonix Inj) 40 mg BID IV 03/23/17 21:00 04/01/17 20:46 Rifaximin 550 mg 550 mg BID OG-TUBE 03/23/17 21:00 04/01/17 20:47 Propofol 100 ml @ 0 mls/hr TITRATE IV 03/23/17 13:45 04/02/17 06:49 (Unasyn Inj/NS Inj) 100 ml @ 200 mls/hr Q6H IV 03/27/17 10:00 04/04/17 09:00 04/02/17 04:59 (Levemir Inj) 30 units Q12HR SQ 03/27/17 21:00 04/01/17 21:14 Furosemide 40 mg 40 mg Q12H IV PUSH 03/27/17 16:00 Hold 03/28/17 04:00 (Cardizem Inj/NS Inj) 125 ml @ 0 mls/hr TITRATE IV 03/28/17 09:00 04/02/17 06:00 (Brethine Inj) 1 mg UNSCH PRN SQ 03/28/17 08:30 (Cardizem) 90 mg Q6HR PO 03/28/17 12:00 04/02/17 06:00 Vancomycin HCl 500 mg 500 mg QID PO 03/30/17 09:00 04/01/17 20:46 (Flagyl 500 Mg Inj) 100 ml @ 100 mls/hr Q8H IV 03/29/17 22:00 04/02/17 05:59 (Heparin Inj) 5,000 units Q12HR SQ 03/30/17 21:00 04/01/17 20:46 Tacrolimus 1 mg 1 mg BID PO 04/01/17 21:00 04/01/17 20:47 (NS 250 ml Inj) 250 ml @ 15 mls/hr ONCE ONCE IV 04/01/17 21:00 04/02/17 13:39 04/02/17 05:59 Water 200 ml 200 ml Q6HR G-TUBE 04/02/17 12:00 (1/2 NS 1000 ml Inj) 1,000 ml @ 50 mls/hr Q20H IV 04/02/17 07:30 (Phoslo) 667 mg TID PO 04/02/17 09:00 (SoluCORTEF INJ) 50 mg DAILY IV PUSH 04/02/17 09:00 04/04/17 08:59 . Family History Both of his parents of "bone cancer" in their 60s. . Substance Use Tobacco:Smoked a pack of cigarettes per day for 20 years. Quit smoking in 1997. Alcohol: Does not use alcohol. Prescription med abuse: None. Illicits: No illicit drug use. . Psychosocial History Lives in [place]. . Has 1 son. . Spiritual/Cultural Factors Religion gloria. . Living Will: Never completed Health Care Surrogate: Never completed Durable Power of Weight And Balance Control Agent: Never completed Health Care Surrogate(s): No known written advance directives per family report. According to [place] statutes, health care proxy decision makers also patient's spouse. . Family/friends goals: Family elects alternate code status intubation only, considering reintubation if they shouldn't is able to be medically extubated and the coming days, tracheostomy/PEG tube decision if patient unable to be medically extubated versus transition to comfort focused care. seems to be struggling with how to have a conversation with patient regarding what he would want she doesn' t want him to think that she is "giving up on him." . Ethical and Legal Issues No known written advance directives, according to [place] statutes, health care proxy decision makers also patient's spouse. . Physical Exam Vital Signs Date Time Temp Pulse Resp B/P Pulse Ox O2 Delivery O2 Flow Rate FiO2 04/02/17 06:30 98.0 75 16 140/60 100 04/02/17 06:00 80 04/02/17 04:13 99 40 04/02/17 04:00 80 04/02/17 04:00 40 04/02/17 04:00 97.8 82 123/72 100 134/59 04/02/17 03:45 97.9 75 16 146/61 100 04/02/17 03:29 97.6 76 17 137/62 100 04/02/17 03:00 75 127/75 100 151/70 04/02/17 02:00 69 123/70 100 129/56 04/02/17 02:00 79 04/02/17 01:06 100 40 04/02/17 01:00 72 127/77 100 140/60 04/02/17 00:00 97.7 72 133/88 100 141/59 04/02/17 00:00 40 04/02/17 00:00 81 04/01/17 23:00 72 139/80 100 145/63 04/01/17 22:00 74 145/74 100 151/61 04/01/17 22:00 77 04/01/17 21:00 76 124/65 100 148/64 04/01/17 20:48 100 Ventilator 40 04/01/17 20:41 100 40 04/01/17 20:00 78 7/20/17 20:00 97.7 70 125/61 100 140/60 04/01/17 20:00 40 04/01/17 18:00 72 04/01/17 18:00 74 126/62 100 136/59 04/01/17 17:00 71 119/60 100 130/55 04/01/17 16:26 100 40 04/01/17 16:00 74 04/01/17 16:00 97.4 70 18 129/63 100 149/61 04/01/17 16:00 40 04/01/17 15:00 70 135/73 100 153/65 04/01/17 14:00 70 04/01/17 14:00 70 130/67 99 142/60 04/01/17 13:24 99 40 04/01/17 13:00 70 113/59 100 125/54 04/01/17 12:00 98.6 80 149/70 99 157/64 04/01/17 12:00 79 04/01/17 12:00 40 04/01/17 11:00 72 135/63 100 138/59 04/01/17 10:21 40 04/01/17 10:21 100 40 04/01/17 10:00 73 130/71 100 142/62 04/01/17 10:00 72 04/01/17 09:00 75 135/68 100 144/63 04/01/17 04/02/17 19:00 07:00 Intake Total 1097 ml 2974 ml Output Total 950 ml 2500 ml Balance 147 ml 474 ml Intake IV Total 700 ml 1761 ml Tube Feeding 397 ml 963 ml Packed Cells 250 ml Output Urine Total 750 ml 2300 ml Stool Total 200 ml 200 ml Exam CONSTITUTIONAL/GENERAL: This is an adequately nourished patient, on CPAP. TUBES/LINES/DRAINS: ETT, NG left nare, right subclavian central line, left wrist arterial line, bilateral soft wrist restraints, Mcpherson, Dignishield, SCDs and podus boots. SKIN: No jaundice, rashes, or lesions. Ecchymoses on upper extremities. No wounds seen anteriorly. Skin temperature appropriate. Not diaphoretic. HEAD: Atraumatic. Normocephalic. EYES: Pupils equal and round 2mm and reactive. Extraocular motions intact. No scleral icterus. No injection or drainage. Fundi not examined. ENT: Hearing grossly normal. Nose without bleeding or purulent drainage. Unable to visualize throat secondary tubes. NECK: Trachea midline. Supple. CARDIOVASCULAR: tachycardic without murmurs, gallops, or rubs. No JVD. RESPIRATORY/CHEST: course breath sounds bilaterally lung malhotra, diminished. GASTROINTESTINAL: Abdomen soft, non-tender, nondistended. Bowel sounds hypoactive. GENITOURINARY: Without palpable bladder distension. Mcpherson catheter in place. MUSCULOSKELETAL: Extremities with edema. No mottling or clubbing. LYMPHATICS: No palpable cervical or supraclavicular adenopathy. NEUROLOGICAL: Awake and alert. Nods yes/no questions, appears appropriate. Follows simple commands, does not follow complex commands. Gross generalized weakness noted, unable to lift lower extremities off bed. PSYCHIATRIC: family reports intermittently tearful. . Diagnostic Tests Laboratory Laboratory Tests Test 03/31/17 04/01/17 04/01/17 04/01/17 03:45 03:30 15:30 21:50 White Blood Count 21.7 TH/MM3 9.8 TH/MM3 (4.0-11.0) (4.0-11.0) Red Blood Count 2.76 MIL/MM3 2.19 MIL/MM3 (4.50-5.90) (4.50-5.90) Hemoglobin 7.8 GM/DL 6.3 GM/DL (13.0-17.0) (13.0-17.0) Hematocrit 23.3 % 18.8 % (39.0-51.0) (39.0-51.0) Mean Corpuscular Volume 84.2 FL 85.8 FL (80.0-100.0) (80.0-100.0) Mean Corpuscular Hemoglobin 28.4 PG 28.9 PG (27.0-34.0) (27.0-34.0) Mean Corpuscular Hemoglobin 33.7 % 33.8 % Concent (32.0-36.0) (32.0-36.0) Red Cell Distribution Width 16.2 % 16.6 % (11.6-17.2) (11.6-17.2) Platelet Count 127 TH/MM3 112 TH/MM3 (150-450) (150-450) Mean Platelet Volume 8.8 FL 8.7 FL (7.0-11.0) (7.0-11.0) Neutrophils (%) (Auto) 92.8 % (16.0-70.0) Lymphocytes (%) (Auto) 4.9 % (9.0-44.0) Monocytes (%) (Auto) 2.3 % (0.0-8.0) Eosinophils (%) (Auto) 0.0 % (0.0-4.0) Basophils (%) (Auto) 0.0 % (0.0-2.0) Neutrophils # (Auto) 20.1 TH/MM3 (1.8-7.7) Lymphocytes # (Auto) 1.1 TH/MM3 (1.0-4.8) Monocytes # (Auto) 0.5 TH/MM3 (0-0.9) Eosinophils # (Auto) 0.0 TH/MM3 (0-0.4) Basophils # (Auto) 0.0 TH/MM3 (0-0.2) CBC Comment AUTO DIFF Differential Total Cells 100 Counted Neutrophils % (Manual) 91 % (16-70) Band Neutrophils % 3 % (0-6) Lymphocytes % 2 % (9-44) Monocytes % 3 % (0-8) Neutrophils # (Manual) 20.6 TH/MM3 (1.8-7.7) Metamyelocytes 1 % (0-1) Differential Comment FINAL DIFF MANUAL Platelet Estimate LOW (NORMAL) Platelet Morphology Comment NORMAL (NORMAL) Red Cell Morphology Comment NORMAL (NORMAL) Sodium Level 144 MEQ/L 152 MEQ/L (136-145) (136-145) Potassium Level 3.4 MEQ/L 3.3 MEQ/L (3.5-5.1) (3.5-5.1) Chloride Level 107 MEQ/L 114 MEQ/L (98-107) (98-107) Carbon Dioxide Level 26.4 MEQ/L 25.3 MEQ/L (21.0-32.0) (21.0-32.0) Anion Gap 11 MEQ/L (5-15) 13 MEQ/L (5-15) Blood Urea Nitrogen 151 MG/DL 135 MG/DL (7-18) (7-18) Creatinine 2.63 MG/DL 2.22 MG/DL (0.60-1.30) (0.60-1.30) Estimat Glomerular Filtration 24 ML/MIN (>89) 30 ML/MIN (>89) Rate Random Glucose 145 MG/DL 126 MG/DL (74-106) (74-106) Calcium Level 7.9 MG/DL 7.8 MG/DL (8.5-10.1) (8.5-10.1) Phosphorus Level 6.2 MG/DL (2.5-4.9) Magnesium Level 2.1 MG/DL (1.5-2.5) Total Bilirubin 0.8 MG/DL (0.2-1.0) Aspartate Amino Transf 37 U/L (15-37) (AST/SGOT) Alanine Aminotransferase 23 U/L (12-78) (ALT/SGPT) Alkaline Phosphatase 122 U/L (45-117) Total Protein 6.5 GM/DL (6.4-8.2) Albumin 2.4 GM/DL (3.4-5.0) Tacrolimus (Prograf) Level 2.7 NG/ML 5.2 NG/ML (5.0-20.0) (5.0-20.0) Blood Type O POSITIVE Antibody Screen NEGATIVE Crossmatch Leukocyte-Reduced Red Blood Cells Blood Bank Comment Test 04/02/17 08:06 White Blood Count 10.7 TH/MM3 (4.0-11.0) Red Blood Count 2.59 MIL/MM3 (4.50-5.90) Hemoglobin 7.5 GM/DL (13.0-17.0) Hematocrit 22.0 % (39.0-51.0) Mean Corpuscular Volume 85.0 FL (80.0-100.0) Mean Corpuscular Hemoglobin 29.2 PG (27.0-34.0) Mean Corpuscular Hemoglobin 34.3 % Concent (32.0-36.0) Red Cell Distribution Width 16.4 % (11.6-17.2) Platelet Count 121 TH/MM3 (150-450) Mean Platelet Volume 8.3 FL (7.0-11.0) Neutrophils (%) (Auto) 89.0 % (16.0-70.0) Lymphocytes (%) (Auto) 5.7 % (9.0-44.0) Monocytes (%) (Auto) 4.8 % (0.0-8.0) Eosinophils (%) (Auto) 0.3 % (0.0-4.0) Basophils (%) (Auto) 0.2 % (0.0-2.0) Neutrophils # (Auto) 9.6 TH/MM3 (1.8-7.7) Lymphocytes # (Auto) 0.6 TH/MM3 (1.0-4.8) Monocytes # (Auto) 0.5 TH/MM3 (0-0.9) Eosinophils # (Auto) 0.0 TH/MM3 (0-0.4) Basophils # (Auto) 0.0 TH/MM3 (0-0.2) CBC Comment AUTO DIFF Result Diagram: 04/02/17 0806 04/01/17 1530 Microbiology * 03/21/17 blood culture Acinetobacter - pansensitive . Imaging Last Impressions Chest X-Ray 04/02/17 0600 Signed Impressions: Service Date/Time: Sunday, April 02, 2017 03:55 - CONCLUSION: 1. Bilateral lower lobe atelectasis versus pneumonia. Bilateral effusions There has been no significant change when compared to the prior exam. Arpit Contreras MD Upper Extremity Ultrasound 03/29/17 0000 Signed Impressions: Service Date/Time: Wednesday, March 29, 2017 11:02 - CONCLUSION: Small amount of thrombus in the left cephalic vein and the left basilic vein. Right upper extremity is unremarkable . Valerio Jerome MD Lower Extremity Ultrasound 03/29/17 0000 Signed Impressions: Service Date/Time: Wednesday, March 29, 2017 10:40 - CONCLUSION: Normal examination. Valerio Jerome MD Abdomen Ultrasound 03/22/173 Signed Impressions: Service Date/Time: Wednesday, March 22, 2017 08:14 - CONCLUSION: 1. Mild diffusely heterogeneous transplant liver echotexture with small amount of volume loss. No definitive evidence for portal venous gas or significant pneumobilia by ultrasound exam. However, examination was not specifically tailored for extended interrogation of the hepatic vasculature. 2. No sonographic evidence for intra-or extrahepatic ductal dilatation. 3. Trace ascites and small bilateral pleural effusions. Everton Cruz MD Chest CT 03/22/17 0000 Signed Impressions: Service Date/Time: Wednesday, March 22, 2017 15:37 - CONCLUSION: There is ascites and bilateral pleural effusion and worsening left lung consolidation. Indu Cunningham MD Abdomen/Pelvis CT 03/22/17 0000 Signed Impressions: Service Date/Time: Wednesday, March 22, 2017 15:40 - CONCLUSION: Increase in ascites and mesenteric congestion since the prior exam. Indu Cunningham MD Abdomen X-Ray 03/22/17 0000 Signed Impressions: Service Date/Time: Wednesday, March 22, 2017 07:00 - CONCLUSION: No findings characteristic of perforation. Nasogastric tube coiled within the fundus of the stomach. Emliio Snow MD Head CT 03/21/17 0000 Signed Impressions: Service Date/Time: Tuesday, March 21, 2017 23:27 - CONCLUSION: Normal examination. Valerio Jerome MD . Procedures * 03/29/17 left subclavian central line placement * 03/22/17 fiber-optic bronchoscopy with bronchoalveolar lavage * 03/21/17 - left subclavian central line placement * 03/21/17 intubated . Patient/Family Conference Present at Family Conference: Palliative care left message for to introduce palliative care, awaiting return call. 4:30pm: met with and son. . Family Conference Time (mins): 60 Family Conference Location: Consult Room Issues Discussed: * Palliative care role, purpose, approach * Additional medical, psychosocial, and spiritual history * Patients general health, functional status, and cognitive changes in the months leading up to the current hospitalization * Patient/family understanding of the current medical problems * Patient/family understanding of prognosis * Patients goals of care as best understood from advance directives and/or conversations and/or values * Current medical treatment options and benefits/burdens of those options * Likely scenarios comparing ongoing aggressive care with a transition to comfort measures only * Questions answered to the best of my ability * Palliative care contact information provided Assessment and Plan Disease Oriented Problem List: (1) History of liver transplant (2) Sepsis (3) Urinary tract infection (4) Altered mental status, unspecified (5) CHF (congestive heart failure) (6) Atrial fibrillation with RVR (7) Acute on chronic kidney disease, stage 3 (8) PNA (pneumonia) Symptom Scale: (1) Anxiety 0-10 Scale: Unable to quantify (2) Shortness of breath 0-10 Scale: 0 (3) Debility 0-10 Scale: Unable to quantify (4) Pain 0-10 Scale: 0 Pertinent Non-Medical Issues Psychosocial: . 1 son, lives local. Spiritual: Religion gloria. Legal: In the absence of written advance directives, according to [place] statutes, health care proxy decision makers also patient's spouse. Ethical issues impacting care: no known concerns at this time. . Important Contacts * Connie St, spouse: [phone] . 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 Overall prognosis appears poor. Would be hospice appropriate if goals are comfort oriented. . Code Status: Full Code Plan * Decision Maker: no known written advance directives, according to [place] statutes, health care proxy decision makers also patient's spouse. * ALTERNATE CODE: intubation only. No cardiac compressions, shock or ACLS. * Discussed with [facility] and Dr. Avila. * Palliative care met with , Connie and son. Additional history obtained. Medical update provided. Reviewed my conversation with laboratory mechanic helper indicating hopes for medical extubation in the coming days. Discussed family wishes regarding code status, reintubation should patient be medically extubated, tracheostomy/PEG tube if unable to be medically extubated and the coming days. Family understands tracheostomy and PEG tube decision will be needed if he is unable to be extubated over the weekend. Family will be prepared to make a decision regarding reintubation/trach/PEG is medically extubated in the coming days. is hopeful that Dr. Randle or medical team will be able to have a conversation with the patient should he be medically extubated and the coming days regarding patient wishes. Reviewed the need to determine patient capacity is medically extubated to determine if the patient will be able to participate in healthcare decision making. Family verbalizes understanding. Appreciative of time spent in today's meeting. Palliative care will continue to follow to further clarify goals as needed. * CASPER Ordoñez palliative care will be off 04/05- 04/09, please call [phone] if a palliative care member is needed. Thank you! * SYMPTOMS: anxiety: on Propofol. Intermittently tearful per family. Pain: secondary to bedbound status, acute hospitalization, tubes, general debility and weakness. On Fentanyl drip 100mch/hr. Denies pain during my visit. Dyspnea: Denies [facility]ness of [facility]. Debility: has had frequent infections and hospitalizations over the past year with increased debility. Now in ICU for 12 days. * Palliative care number provided. * Palliative care will continue to follow throughout hospital course to assist with symptom management and clarification of goals as needed. . Time Spent Total Floor Time (mins): 90 Face to Face Time (mins): 60 >50% Counseling/Coord of Care: Yes Thank you for the opportunity to participate in the care of Mr. St. Attestation To help prompt me to consider important information that might be impacting today's encounter and assessment, information from prior notes written by myself or my colleagues may have been "brought forward" into today's note. My signature on this note, however, is an attestation that I personally performed the exam, history, and/or decision-making noted today, and, unless otherwise indicated, the interactions with patient, family, and staff as well as the review of records all occurred today. I also attest that the listed assessment and stated plan reflect my best clinical judgment today based on the combination of historical information, prior notes, and today's exam/ interactions. When time spent is documented, it refers only to time spent today by the signer, or if indicated, combined time spent today by collaborating physician/nurse practitioner. Aisha Ocampo Apr 02, 2017 09:07
--- NOTE | 2017-04-02 09:13 | HHI.NPPN ---
Subjective History of Present Illness 67-year-old male with past medical history of liver transplant in 2001, hypertension, atrial fibrillation, hyperlipidemia, diabetes mellitus, history of atrial fibrillation with ablation, chronic kidney disease was admitted on March 19 because of a lethargy and decreased responsiveness. I was called due to decrease urine out put and increasing Creatinine. Additional Remarks Patient remain on the vent. and on CPAP, more sleepy today, not in distress. Objective Data Data 04/01/17 04/02/17 19:00 07:00 Intake Total 1097 ml 2974 ml Output Total 950 ml 2500 ml Balance 147 ml 474 ml Intake IV Total 700 ml 1761 ml Tube Feeding 397 ml 963 ml Packed Cells 250 ml Output Urine Total 750 ml 2300 ml Stool Total 200 ml 200 ml Vital Signs Date Time Temp Pulse Resp B/P Pulse Ox O2 Delivery O2 Flow Rate FiO2 04/02/17 08:45 100 40 04/02/17 08:45 40 04/02/17 08:00 98.3 106 137/100 100 143/59 04/02/17 07:00 71 137/75 100 141/57 04/02/17 06:30 98.0 75 16 140/60 100 04/02/17 06:00 80 04/02/17 04:13 99 40 04/02/17 04:00 80 04/02/17 04:00 40 04/02/17 04:00 97.8 82 123/72 100 134/59 04/02/17 03:45 97.9 75 16 146/61 100 04/02/17 03:29 97.6 76 17 137/62 100 04/02/17 03:00 75 127/75 100 151/70 04/02/17 02:00 69 123/70 100 129/56 04/02/17 02:00 79 04/02/17 01:06 100 40 04/02/17 01:00 72 127/77 100 140/60 04/02/17 00:00 97.7 72 133/88 100 141/59 04/02/17 00:00 40 04/02/17 00:00 81 04/01/17 23:00 72 139/80 100 145/63 04/01/17 22:00 74 145/74 100 151/61 04/01/17 22:00 77 04/01/17 21:00 76 124/65 100 148/64 04/01/17 20:48 100 Ventilator 40 04/01/17 20:41 100 40 04/01/17 20:00 78 04/01/17 20:00 97.7 70 125/61 100 140/60 04/01/17 20:00 40 04/01/17 18:00 72 04/01/17 18:00 74 126/62 100 136/59 04/01/17 17:00 71 119/60 100 130/55 04/01/17 16:26 100 40 04/01/17 16:00 74 04/01/17 16:00 97.4 70 18 129/63 100 149/61 04/01/17 16:00 40 04/01/17 15:00 70 135/73 100 153/65 04/01/17 14:00 70 04/01/17 14:00 70 130/67 99 142/60 04/01/17 13:24 99 40 04/01/17 13:00 70 113/59 100 125/54 04/01/17 12:00 98.6 80 149/70 99 157/64 04/01/17 12:00 79 04/01/17 12:00 40 04/01/17 11:00 72 135/63 100 138/59 04/01/17 10:21 40 04/01/17 10:21 100 40 04/01/17 10:00 73 130/71 100 142/62 04/01/17 10:00 72 -: 04/02/17 0806 04/02/17 0806 Physical Exam General Appearance: No Acute Distress, Comfortable Eyes Eye Exam: Pupils Equal Throat Throat Exam: Oral Mucosa [place] & Moist Pulmonary Resp Exam: Crackles, Rhonchi, Decreased Bases, Diminished Breath Sounds Cardiology CV Exam: Regular, Normal Sinus Rhythm Gastrointestinal/Abdomen GI Exam: Soft, Non-Tender, Bowel Sounds Present Extremeties Extremities Exam: Trace Edema Neurologic Neuro Exam: Alert, Awake Assessment/Plan Assessment Summary: RAN/Acute Renal Failure, CKD Stage III Problem List: (1) Atrial fibrillation with RVR (2) Respiratory failure (3) Shortness of breath (4) PNA (pneumonia) (5) CHF (congestive heart failure) (6) Anemia (7) Acute on chronic kidney disease, stage 3 (8) RAN (acute kidney injury) Plan Patient has chronic kidney disease and develop RAN. Patient has good urine out put and has improvement in the Creatinine, Now it is 1.9, K is low, on replacement. Continue gentle hydration. Continue antibiotics. Weaning as per CCM. Avoid Nephrotoxins. Follow the urine out put and BMP. Problem Qualifiers (1) Respiratory failure: Qualified Code: J96.01 - Acute respiratory failure with hypoxia Sunil Maya MD Apr 02, 2017 09:13
[2017-04-02] MEDS ORDERED: POTASSIUM CHLORIDE 20 MEQ PWD PACKET PO ONE (10:00)
--- NOTE | 2017-04-02 11:25 | HHI.GIFU ---
Subjective Remarks Resting in bed. Awake on CPAP. No obvious active bleeding. Tolerating TF. Denies abdominal pain. Flexiseal with dark green liquid stool. (Kenisha Lopez) Objective Vitals I&O Vital Signs Date Time Temp Pulse Resp B/P Pulse Ox O2 Delivery O2 Flow Rate FiO2 04/02/17 08:45 100 40 04/02/17 08:45 40 04/02/17 08:00 98.3 106 137/100 100 143/59 04/02/17 07:00 71 137/75 100 141/57 04/02/17 06:30 98.0 75 16 140/60 100 04/02/17 06:00 80 04/02/17 04:13 99 40 04/02/17 04:00 80 04/02/17 04:00 40 04/02/17 04:00 97.8 82 123/72 100 134/59 04/02/17 03:45 97.9 75 16 146/61 100 04/02/17 03:29 97.6 76 17 137/62 100 04/02/17 03:00 75 127/75 100 151/70 04/02/17 02:00 69 123/70 100 129/56 04/02/17 02:00 79 04/02/17 01:06 100 40 04/02/17 01:00 72 127/77 100 140/60 04/02/17 00:00 97.7 72 133/88 100 141/59 04/02/17 00:00 40 04/02/17 00:00 81 04/01/17 23:00 72 139/80 100 145/63 04/01/17 22:00 74 145/74 100 151/61 04/01/17 22:00 77 04/01/17 21:00 76 124/65 100 148/64 04/01/17 20:48 100 Ventilator 40 04/01/17 20:41 100 40 04/01/17 20:00 78 04/01/17 20:00 97.7 70 125/61 100 140/60 04/01/17 20:00 40 04/01/17 18:00 72 04/01/17 18:00 74 126/62 100 136/59 04/01/17 17:00 71 119/60 100 130/55 04/01/17 16:26 100 40 04/01/17 16:00 74 04/01/17 16:00 97.4 70 18 129/63 100 149/61 04/01/17 16:00 40 04/01/17 15:00 70 135/73 100 153/65 04/01/17 14:00 70 04/01/17 14:00 70 130/67 99 142/60 04/01/17 13:24 99 40 04/01/17 13:00 70 113/59 100 125/54 04/01/17 12:00 98.6 80 149/70 99 157/64 04/01/17 12:00 79 04/01/17 12:00 40 I/O 04/01/17 04/01/17 04/01/17 04/02/17 04/02/17 04/02/17 07:00 15:00 23:00 07:00 15:00 23:00 Intake Total 1213 ml 1097 ml 1184 ml 1790 ml Output Total 1150 ml 950 ml 1100 ml 1400 ml Balance 63 ml 147 ml 84 ml 390 ml Intake IV Total 730 ml 700 ml 713 ml 1048 ml Tube Feeding 423 ml 397 ml 471 ml 492 ml Packed Cells 250 ml Other 60 ml Output Urine Total 750 ml 750 ml 1100 ml 1200 ml Stool Total 400 ml 200 ml 200 ml Laboratory Laboratory Tests Test 04/01/17 04/01/17 04/02/17 15:30 21:50 08:06 White Blood Count 9.8 10.7 Red Blood Count 2.19 2.59 Hemoglobin 6.3 7.5 Hematocrit 18.8 22.0 Mean Corpuscular Volume 85.8 85.0 Mean Corpuscular Hemoglobin 28.9 29.2 Mean Corpuscular Hemoglobin 33.8 34.3 Concent Red Cell Distribution Width 16.6 16.4 Platelet Count 112 121 Mean Platelet Volume 8.7 8.3 Sodium Level 152 154 Potassium Level 3.3 3.2 Chloride Level 114 114 Carbon Dioxide Level 25.3 27.1 Anion Gap 13 13 Blood Urea Nitrogen 135 135 Creatinine 2.22 1.94 Estimat Glomerular Filtration 30 35 Rate Random Glucose 126 113 Calcium Level 7.8 7.7 Blood Type O POSITIVE Antibody Screen NEGATIVE Crossmatch Leukocyte-Reduced Red Blood Cells Blood Bank Comment Neutrophils (%) (Auto) 89.0 Lymphocytes (%) (Auto) 5.7 Monocytes (%) (Auto) 4.8 Eosinophils (%) (Auto) 0.3 Basophils (%) (Auto) 0.2 Neutrophils # (Auto) 9.6 Lymphocytes # (Auto) 0.6 Monocytes # (Auto) 0.5 Eosinophils # (Auto) 0.0 Basophils # (Auto) 0.0 CBC Comment AUTO DIFF Differential Total Cells 100 Counted Neutrophils % (Manual) 86 Band Neutrophils % 5 Lymphocytes % 5 Monocytes % 4 Neutrophils # (Manual) 9.7 Differential Comment FINAL DIFF MANUAL Platelet Estimate LOW Platelet Morphology Comment NORMAL Ovalocytes 1+ Phosphorus Level 5.2 Magnesium Level 2.4 Total Bilirubin 0.5 Aspartate Amino Transf 33 (AST/SGOT) Alanine Aminotransferase 22 (ALT/SGPT) Alkaline Phosphatase 99 Total Creatine Kinase 26 Total Protein 5.8 Albumin 2.1 Imaging Last Impressions Chest X-Ray 04/02/17 0600 Signed Impressions: Service Date/Time: Sunday, April 02, 2017 03:55 - CONCLUSION: 1. Bilateral lower lobe atelectasis versus pneumonia. Bilateral effusions There has been no significant change when compared to the prior exam. Arpit Contreras MD Upper Extremity Ultrasound 03/29/17 0000 Signed Impressions: Service Date/Time: Wednesday, March 29, 2017 11:02 - CONCLUSION: Small amount of thrombus in the left cephalic vein and the left basilic vein. Right upper extremity is unremarkable . Valerio Jerome MD Lower Extremity Ultrasound 03/29/17 0000 Signed Impressions: Service Date/Time: Wednesday, March 29, 2017 10:40 - CONCLUSION: Normal examination. Valerio Jerome MD Abdomen Ultrasound [id number]/22/[id number] Signed Impressions: Service Date/Time: Wednesday, March 22, 2017 08:14 - CONCLUSION: 1. Mild diffusely heterogeneous transplant liver echotexture with small amount of volume loss. No definitive evidence for portal venous gas or significant pneumobilia by ultrasound exam. However, examination was not specifically tailored for extended interrogation of the hepatic vasculature. 2. No sonographic evidence for intra-or extrahepatic ductal dilatation. 3. Trace ascites and small bilateral pleural effusions. Everton Cruz MD Chest CT 03/22/17 0000 Signed Impressions: Service Date/Time: Wednesday, March 22, 2017 15:37 - CONCLUSION: There is ascites and bilateral pleural effusion and worsening left lung consolidation. Indu Cunningham MD Abdomen/Pelvis CT 03/22/17 0000 Signed Impressions: Service Date/Time: Wednesday, March 22, 2017 15:40 - CONCLUSION: Increase in ascites and mesenteric congestion since the prior exam. Indu Cunningham MD Abdomen X-Ray 03/22/17 0000 Signed Impressions: Service Date/Time: Wednesday, March 22, 2017 07:00 - CONCLUSION: No findings characteristic of perforation. Nasogastric tube coiled within the fundus of the stomach. Emilio Snow MD Head CT 03/21/17 0000 Signed Impressions: Service Date/Time: Tuesday, March 21, 2017 23:27 - CONCLUSION: Normal examination. Valerio Jerome MD Physical Exam HEENT: Normocephalic; atraumatic CHEST: CTA, diminished, OETT to vent.(CPAP) CARDIAC: SR ABDOMEN: Soft, nondistended, nontender; hepatosplenomegaly; bowel sounds faint EXTREMITIES: Generalized edema. SKIN: Generalized pallor [employer]: Awake follows commands (Kenisha Lopez) Assessment and Plan Plan ASSESSMENT: - CDiff colitis, Epid 027 (+). Pt on ampicillin for acinetobacter baumannii/ Haemol bacteremia. ID following. Stool output improving- 200cc per shift per last two shifts. On Oral vanco and flagyl. 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 He has not been seen at the [facility] and 5-10 years secondary to financial issues. Unfortunately, he cannot make an appointment to follow up at [facility] until he makes a payment of $8,000 for an outstanding balance. The tells me charles there is no way she can make this payment and that she will have to "deal with that later." We did refer patient to [facility], but patient was declined secondary to having his transplant done at [facility] and they said that he would need to follow up at [facility]. 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 Similar histologic findings can also be seen in plasma cell rich rejection. Correlation with recent BILLY, ASMA, and serum IgG level is recommended. Typical features of acute cellular rejection are not seen. There is no evidence of chronic biliary tract disease or active steatohepatitis. Labs from January 28, 2017 revealed IgG total 3887, IgG1 2359, IgG3 57, IgG4 > 300.00. BILLY negative, ASMA negative. MELD 16. Spoke to Tiana Lo at [facility] to update on patient's condition and to see if he would able to be seen at their facility ([facility] has declined patient per our outpatient referral records). Per Tiana Lo, patient will not be able to be seen or make recommendations at [facility] until they have contacted Central Appointment Scheduling and settles outstanding balance. They cannot make recommendations , as they have not seen this patient since 2007 and would need to start the whole process over again and cannot do this until the outstanding balance is settled. LFTs remain stable with T. Bili 0.8, AST 37, ALT 23, ALk Phosph 122. - Anemia. Pt had drop in hgb yesterday from 7.8/23.3----> 6.3/18.8. S/P 1 unit of prbc yesterday and this is 7.5/22.0 today. There was no obvious blood loss. Tolerating tf. Denies abdominal pain. Flexiseal with dark green liquid stool. Will continue PPI and monitor for any signs of active bleeding. - Coagulopathy. Stable - Sepsis with multisystem failure. Pt with bandemia, UTI/PNA. Bronchial washings with no growth 48 hours, mycobacterial culture pending, fungal culture pending urine negative for legionella and streptococcus, urine cx (-), Bcx Acinetobacter Baumannii/Haemol, rpt with no growth. WBC 10.7. ID following, on Ampicillicin. Oral vanco, flagyl - Resp. Failure, HCAP. Abx, Nebs. Vent per CCM. On CPAP, still having apnea at times. - RAN with electrolyte abnormalities. Renal following, likely acute injury secondary to acute tubular necrosis r/t hypotension. Avoid nephrotoxins. Creat improved 1.94 - AMS. EEG with diffusely low recording, could be medication effect as the patient was on fentanyl. No hemisphere asymmetries are noted. No epileptiform or seizure activity seen. IMPROVED. Follows commands, responds appropriately - Hx HTN, hyperlipidemia, BPH, per attending. PLAN: - TF as tolerated - Cont. Flagyl - Cont. Oral Vanco - Cont. Prograf - Cont. Xifaxan - Cont. PPI - Cont. to hold lactulose for diarrhea- stool output has improved since this was discontinued - Abx per ID recommendations - Monitor labs - Monitor stool output - Notify GI of any active bleeding - Supportive care - CCM following - ID following - Further recommendations to follow based on results of above - Of note, patient has been declined by [facility] secondary to having original transplant at [facility] - [facility] will not see patient or make recommendations until they have contacted the Central Appointment Office to resolve outstanding balance- aware. - Pt seen and examined by Dr. Benitez and myself and this note is written on her behalf (Kenisha Lopez) Kenisha Lopez Apr 02, 2017 11:25 Stephanie Benitez MD Apr 02, 2017 20:47
[2017-04-02] MEDS: SODIUM CHLORIDE 23.4% INJ 38.5 MEQ in WATER STERILE FOR INJ 1,000 ML IV SCH (12:06)
[2017-04-02] MEDS ORDERED: DEXTROSE 50% IN WATER 50 ML SYRINGE ONE ×2 (15:44→17:02)
[2017-04-02] MEDS ORDERED: DEXTROSE 5% IN WATE 1000ML INJ 1,000 ML IV SCH (15:45)
[2017-04-02] MEDS: DEXTROSE 50% IN WATER 50 ML VIAL(D50) IV PUSH PRN ×2 (15:48→17:05)
[2017-04-02] MEDS: fentaNYL DRIP 250 ML IV SCH (19:07)
[2017-04-02 20:42] LABS: BICARBONATE 24.6 MEQ/L (21.0-32.0); POTASSIUM 3.2 MEQ/L (3.5-5.1)
[2017-04-02] MEDS ORDERED: POTASSIUM CHLORIDE 20 MEQ PWD PACKET NG SCH (21:15)
[2017-04-03] VITALS (31 sets, daily range): BP systolic 67–202; BP diastolic 46–86; PULSE 71–109; RESP 16; TEMP 97.6–98.4; O2SAT 85–100
[2017-04-03] MEDS: AMPICILLIN-SULBACTAM INJ 3 GM in SODIUM CHLORIDE 0.9% INJ 100 ML IV SCH ×4 (03:35→20:31)
[2017-04-03] MEDS: CHLORHEXIDINE GLUCONATE 2 % 1 PACK (2 CLOTHS) TOP SCH (03:35)
[2017-04-03] MEDS: HIGH DOSE INSULIN NOVOLIN REGULAR SUPPLEMENTAL SCALE SQ SCH ×6 (03:35→20:00)
[2017-04-03 04:11] LABS: AUTOMATED NEUTROPHIL # 5.8 TH/MM3 (1.8-7.7); BASOPHIL % 0.2 % (0.0-2.0); EOSINOPHIL # 0.1 TH/MM3 (0-0.4); EOSINOPHIL % 1.1 % (0.0-4.0); LYMPH % 15.1 % (9.0-44.0); LYMPHOCYTE # 1.2 TH/MM3 (1.0-4.8); MEAN CELL VOLUME 85.9 FL (80.0-100.0); MEAN CORPUSCULAR HEMOGLOBIN 28.9 PG (27.0-34.0); MEAN CORPUSCULAR HGB CONC 33.7 % (32.0-36.0); NEUT % 75.6 % (16.0-70.0); PLATELET COUNT 113 TH/MM3 (150-450); RED BLOOD COUNT 2.42 MIL/MM3 (4.50-5.90); WHITE BLOOD COUNT 7.7 TH/MM3 (4.0-11.0)
[2017-04-03 04:12] LABS: HEMO FLAGS AUTO DIFF
[2017-04-03 04:13] LABS: HEMATOCRIT 20.8 % (39.0-51.0)
[2017-04-03 04:32] LABS: ALT (GPT) 19 U/L (12-78); ANION GAP 10 MEQ/L (5-15); AST (GOT) 29 U/L (15-37); BICARBONATE 26.5 MEQ/L (21.0-32.0); BLOOD UREA NITROGEN 129 MG/DL (7-18); CHLORIDE 117 MEQ/L (98-107); GLOMERULAR FILTRATION RATE 39 ML/MIN (>89); MAGNESIUM 2.4 MG/DL (1.5-2.5); POTASSIUM 3.4 MEQ/L (3.5-5.1); SODIUM (NA) 153 MEQ/L (136-145)
[2017-04-03 04:35] LABS: ALKALINE PHOSPHATASE 81 U/L (45-117); TOTAL BILIRUBIN ADULT 0.4 MG/DL (0.2-1.0)
[2017-04-03] MEDS: RESP: ALBUTEROL 2.5 MG/IPRATROPIUM 0.5 MG NEB (SCH) NEB ×4 (04:46→19:50)
[2017-04-03] MEDS: SODIUM CHLORIDE 23.4% INJ 38.5 MEQ in WATER STERILE FOR INJ 1,000 ML IV SCH (05:17)
[2017-04-03] MEDS: DILTIAZEM HCL 90 MG TAB PO SCH ×4 (05:17→17:31)
[2017-04-03] MEDS: metroNIDAZOLE 500 MG INJ 100 ML IV SCH (05:17)
[2017-04-03] MEDS: FREE WATER G-TUBE SCH ×5 (05:17→20:31)
--- NOTE | 2017-04-03 06:23 | RADRPT ---
EXAM DATE/TIME: 04/03/2017 03:47 [facility] COMPARISON: CHEST SINGLE AP, April 02, 2017, 3:55. INDICATIONS : Evaluate respiratory failure MEDICAL HISTORY : Hypertension. Cirrhosis. Diabetes mellitus type II. Hepatitis B and C, SURGICAL HISTORY : Liver transplant ENCOUNTER: Subsequent ACUITY: 1 week PAIN SCORE: Non-responsive. LOCATION: Bilateral FINDINGS: Hazy bibasilar pleural-parenchymal opacities persist. Accounting for rotation, cardiac contours are s table. Right subclavian central catheter is present in satisfactory position. CONCLUSION: Persistent bibasilar pleuroparenchymal opacities. iVn Perez MD on April 03, 2017 at 6:21 Board Certified Radiologist. This report was verified electronically.
[2017-04-03 06:25] LABS: SCAN/DIFF AUTO DIFF CONFIRMED
[2017-04-03] MEDS: PROPOFOL 1000 MG/100 ML INJ 100 ML IV SCH ×3 (08:26→18:48)
[2017-04-03] MEDS: TACROLIMUS 1 MG CAP PO SCH ×2 (08:27→20:29)
[2017-04-03] MEDS: DOCUSATE SODIUM 50 MG/SENNA 8.6 MG TAB PO SCH ×2 (08:27→20:30)
[2017-04-03] MEDS: RIFAXIMIN 550 MG TAB OG-TUBE SCH ×2 (08:27→20:29)
[2017-04-03] MEDS: CALCIUM ACETATE 667 MG CAP PO SCH ×3 (08:27→17:32)
[2017-04-03] MEDS: HEPARIN SODIUM - SQ 10,000 UNITS/ML VIAL SQ SCH ×2 (08:27→20:29)
[2017-04-03] MEDS: PANTOPRAZOLE SODIUM 40 MG VIAL IV SCH ×2 (08:27→20:30)
[2017-04-03] MEDS: FOLIC ACID 1 MG TAB PO SCH ×2 (08:27→20:30)
[2017-04-03] MEDS: VANCOMYCIN 500 MG VIAL (FOR ORAL USE ONLY) PO SCH ×4 (08:27→20:30)
[2017-04-03] MEDS: HYDROCORTISONE SOD SUCCINATE 100 MG VIAL IV PUSH SCH (08:27)
[2017-04-03] MEDS: CHOLECALCIFEROL (VIT D3) 1000 UNIT TAB PO SCH ×2 (08:27→20:30)
[2017-04-03] MEDS: INSULIN DETEMIR 100 UNITS/ML VIAL SQ SCH ×2 (08:28→20:31)
[2017-04-03] MEDS: SODIUM CHLORIDE 0.9% FLUSH 10 ML FLUSH IV FLUSH SCH ×2 (08:28→20:31)
[2017-04-03] MEDS: CHLORHEXIDINE 0.12% (ORAL KIT) 15 ML CUP MT SCH ×2 (08:29→20:00)
--- NOTE | 2017-04-03 09:23 | HHI.CCPN ---
Subjective Remarks/Hospital Course 67-year-old male with past medical history of primary sclerosing cholangitis with orthotopic liver transplant at [facility] in 2001, hypertension, atrial fibrillation status post ablation, hyperlipidemia, diabetes mellitus who presents to [facility] emergency department with altered mental status, fever, urinary incontinence. He was brought in by his . She states that this morning he was doing well and participated with home health physical therapy. When his returned home this evening she found him lethargic and minimally responsive. He had a cup full of mucus and when she inquired about it he stated that he had vomited. He refused ambulance transport. He had a temperature of 103 upon arrival to the emergency department. His states he told ED staff that he had experienced dysuria starting today. He has h/o BPH and UTI in the past. He has chronic low back pain. He denies headache or neck stiffness. His states he returned to his baseline mental status while in the ED and was conversant with her. He had no focal weakness and no witnessed seizure. His ED workup demonstrated U/a with moderate bacteria, 13 WBC, 2 RBC. White blood cell count was 14 with 9% bands, hemoglobin 10.5, platelets 135, AST 45, ALT 31, alkaline phosphatase 172, PT 12.3, INR 1.1 . Creatinine was 2.32 (baseline about 1.6-2), BUN 73, sodium 132 , potassium 5.2, bicarbonate 17 His initial lactic acid was 1.6. He was given Zosyn and 3 L NS bolus and admitted to the hospitalist service. He was complaining of chronic back pain and was anxious/agitated so was given Ativan 0.5 mg IV (chronically on Xanax). ED physician Dr. Orozco was called in because he became unresponsive and he was hypopneic with inadequate respirations. Sats were in the 60s. He complained to his that he could not see. He was hypotensive in 70s and post-intubation BP dropped to 60s/40s and [facility] was called. CVL was placed and he was started on levophed and vasopressin. He is awake on vent and answering questions yes/no. 03/22: patient in refractory distributive shock. I evaluated the patient multiple times throughout the day beginning around 0600 and at frequent intervals. Patient remains acidotic on maximal vasopressor therapy. I had discussions with Dr. Anaya with ID, cultures are growing out Acinetobacter. abx changed to tobra, vanc, meropenem, levaquin, unasyn. continued ivf resuscitation throughout the day guided by frequent IVC and cardiac echo. formal echo with grossly preserved LV function and mild RV dysfunction. but IVC continued to be collapsable. acute renal failure worsening and acidosis severe. started on bicarb drip. repeat CT abd/pelvis performed. I personally transported patient down to CT scanner given how severely unstable the patient was. Discussed with general surgery and interval CT scan is necessary to eval for intra-abdominal source of sepsis. interval CT without change. most likely Acinetobacter pneumonia with overwhelming septic shock. discussed with at length multiple times today regarding his life-threatening infection and his high risk of mortality. 03/23: vasopressors weaning down. patient waking up, following commands. still persistently acidotic, in multiorgan failure. renal dysfunction persists and oliguric. acinetobacter sensitivities not resulted. 03/24: off vasopressors. clinically beginning to improve. Acinetobacter is pansensitive. oliguria persists, but Cr stable and no current indication for acute HD. 03/25: went into afib RVR yesterday. given mgso4 and started aggressive forced diuresis with lasix drip at 20mg/hr. converted spontaneously back to NSR after only about 2 hours. This AM net -2.4L/24h. continues to make 200cc/hr uop. hemodynamics stable. very low-dose norepinephrine requirement. Cr stable, though RAN persists. 03/26: remains in afib, intermittently RVR. on diltiazem drip. Cr worse. uop declining. appears intravascularly dry. stopped lasix drip. wbc uptrending, but still appears nontoxic. 03/27 Afebrile, WBC 16.8 from 22k. Afib converted to sinus rhythm in 50s, discontinuing cardizem 5 mg/hr that is running. Creatinine steady at 2.75 ( previoulsy 2.8 <--2.81). UOP was in 70s this morning, now down to 50 cc/hr and 30 cc/hr. Positive fluid balance last 24 hours. Now CI 2.1 SVV 7, SVI 33. Glucose poorly controlled in 200s to 300s despite high does insulin sliding scale. Off vasopressors since this morning. 03/28 C diff positive. Started vancomycin po overnight. Tolerating tube feeds. A fib RVR in 130s this morning and initially hypotensive when went into Afib and levophed started but quickly weaned off. Restarting cardizem drip. BUN increased but creatinine relatively unchanged. UOP better with lasix yesterday and now edema slightly improved. Wean hydrocortisone. Glucose better after initiation of detemir but still 210. 03/29: Afebrile. Intermittently A. fib with RVR currently normal sinus rhythm. -4000 cc urine output has 24 hours. Arousable and intermittently following commands. 03/30: Afebrile. Intermittently in normal sinus rhythm/A. fib with RVR. Adequate prep. Increasing BUN and creatinine noted. Arousable on the ventilator and will follow commands. Tolerate CPAP 1 hour so far today. Positive BM. Increased residuals from tube feeding noted ~ 400 cc 03/31: Currently afebrile. On PSV trial since 08:40. Tolerating tube feeds at goal rate. Back in A. fib with RVR cards drip at 10 mg an hour. Started on normal saline for gentle hydration. Arousable and following commands. 04/01: Currently afebrile. On PSV trials. Tolerating tube feeds at goal. requesting palliative care consult for goals of care. She does not desire trach at this time. 04/02: Afebrile. On ventilator overnight. Received PRBCs overnight and IV fluids adjusted due to hemoglobin 6.3 and sodium 152. No active bleeding noted. Arousable the ventilator will follow commands. Tolerating PSV trials 4 hours yesterday. Subjective: 04/03: afebrile, awake, alert this morning. on PSV. sodium still 153 despite free water replacement. BUN still significantly elevated. hgb stable at 7. no active bleeding. Cr downtrending slightly. Objective Vital Signs Date Time Temp Pulse Resp B/P Pulse Ox O2 Delivery O2 Flow Rate FiO2 04/03/17 07:45 100 40 04/03/17 06:00 75 04/03/17 04:00 97.8 16 134/61 132/62 04/01/17 20:48 Ventilator Intake and Output 04/02/17 04/02/17 04/03/17 08:00 16:00 00:00 Intake Total 1790 ml 1555 ml 1118 ml Output Total 1400 ml 1000 ml 1000 ml Balance 390 ml 555 ml 118 ml Result Diagram: 04/03/17 0330 04/03/17 0330 Imaging Last Impressions Chest X-Ray 04/02/17 0600 Signed Impressions: Service Date/Time: Sunday, April 02, 2017 03:55 - CONCLUSION: 1. Bilateral lower lobe atelectasis versus pneumonia. Bilateral effusions There has been no significant change when compared to the prior exam. Arpit Contreras MD Upper Extremity Ultrasound 03/29/17 0000 Signed Impressions: Service Date/Time: Wednesday, March 29, 2017 11:02 - CONCLUSION: Small amount of thrombus in the left cephalic vein and the left basilic vein. Right upper extremity is unremarkable . Valerio Jerome MD Lower Extremity Ultrasound 03/29/17 0000 Signed Impressions: Service Date/Time: Wednesday, March 29, 2017 10:40 - CONCLUSION: Normal examination. Valerio Jerome MD Abdomen Ultrasound 03/22/172122 Signed Impressions: Service Date/Time: Wednesday, March 22, 2017 08:14 - CONCLUSION: 1. Mild diffusely heterogeneous transplant liver echotexture with small amount of volume loss. No definitive evidence for portal venous gas or significant pneumobilia by ultrasound exam. However, examination was not specifically tailored for extended interrogation of the hepatic vasculature. 2. No sonographic evidence for intra-or extrahepatic ductal dilatation. 3. Trace ascites and small bilateral pleural effusions. Everton Cruz MD Chest CT 03/22/17 0000 Signed Impressions: Service Date/Time: Wednesday, March 22, 2017 15:37 - CONCLUSION: There is ascites and bilateral pleural effusion and worsening left lung consolidation. Indu Cunningham MD Abdomen/Pelvis CT 03/22/17 0000 Signed Impressions: Service Date/Time: Wednesday, March 22, 2017 15:40 - CONCLUSION: Increase in ascites and mesenteric congestion since the prior exam. Indu Cunningham MD Abdomen X-Ray 03/22/17 0000 Signed Impressions: Service Date/Time: Wednesday, March 22, 2017 07:00 - CONCLUSION: No findings characteristic of perforation. Nasogastric tube coiled within the fundus of the stomach. Emilio Snow MD Head CT 03/21/17 0000 Signed Impressions: Service Date/Time: Tuesday, March 21, 2017 23:27 - CONCLUSION: Normal examination. Valerio Jerome MD Objective Remarks GENERAL: Chronically ill-appearing 67-year-old male, critically ill, lying in bed. SKIN: Warm and dry. Stage I sacral decubitus ulcer stable HEAD: Atraumatic. Normocephalic. EYES: Pupils equal and round, 2 mm and reactive bilaterally. No scleral icterus. No injection or drainage. ENT: Mucous membranes pink and moist. Oropharynx without erythema or exits. NECK: Trachea midline. No apparent JVD. CARDIOVASCULAR: RRR. sinus by tele this morning. RESPIRATORY:PSV 12/5/35%. RR 16, spo2 100%. equal chest rise. GASTROINTESTINAL: Abdomen overall soft, non-tender, nondistended. Dignishield in place with + stool in tubing : Mcpherson in place with light yellow urine output. Positive mild to moderate scrotal edema MUSCULOSKELETAL: There is muscular atrophy involving bilateral hands. Dependent edema and elbows of bilateral upper extremities. There is trace pedal edema. NEUROLOGICAL: Eyes open and makes eye contact. Nods and shakes head to simple question. Follows commands by squeezing hands and giving thumbs up to verbal commands bilaterally. Wiggles toes bilaterally to command Date of Insertion: Mar 29, 2017 Line: Central Venous Catheter Side: Right Location: Subclavian A/P Assessment and Plan Assessment: 67yM s/p prior OLTx in 2001 now admitted with Acinetobacter septic shock and virulent strain C. Difficile colitis, with persistent multiorgan system dysfunction despite long aggressive therapy. Some organs have slight improvement, although overall prognosis is guarded. Will continue SBTs daily and consider extubation when stable. Renal function poor but stable at this point. will continue free water replacement. highly complex with multiple medical problems. NEURO/PSYCH: Acute Vision change- resolved. Acute metabolic encephalopathy- resolving. Peripheral neuropathy Chronic benzodiazepine use Chronic narcotic use continue low-dose propofol and fentanyl for sedation and vent/ett tolerance. Goal of RASS 0 Daily sedation vacation Per prior notes, patient reported to that he could not see before intubation. ?secondary to profound hypotension and hypoperfusion. Pupils reactive, nodding head peripherally to 1-[address] brain 03/21 revealed no acute intracranial findings MRI brain today Ammonia level -->17 EEG 03/22: severe slowing, no epileptiform activity Hold gabapentin 300 mg by mouth 3 times a day. Hold alprazolam 0.5 mg every 8 hours when necessary Oxycodone liquid 5 mg every 4 hours when necessary pain RESP: Acute hypoxic and hypercarbic respiratory failure- very slowly resolving. History of tobacco abuse Acute healthcare associated left lower lobe pneumonia PSV 12/5/35%. could consider trial of extubation if he passes SBT. very high risk for re-intubation given clinical deconditioning. Ventilator bundle Albuterol/ipratropium nebulizers every 6 hours. Albuterol nebulizers every [address] chest 03/21 - dense consolidation of LLL with air bronchograms. Bronchoscopy with BAL lingula 03/22 - no growth to date SBT as clinically indicated as above CXR 04/02 reveals bilateral infiltrates and bilateral pleural effusions. CV: Septic shock with multi system organ failure- resolved History of atrial fibrillation status post ablation currently intermittent A fib RVR now in normal sinus rhythm History of hypertension Hyperlipidemia Evaluated by Dr. Lovell who has recommended maintenance Cardizem to 90 q6. Initial troponin 0.03, mild increase to 0.06 is likely related to sepsis. Echo from 01/23/17 - +LVH, EF 60-65%. No regional wall motion abnormalities. Left atrial dilation. Echo 03/22- preserved LV function, mild RV dysfunction. collapsable IVC. Hold medications amlodipine 10 mg daily for hypertension on vasopressors, atorvastatin 40 mg daily for dyslipidemia with elevated LFTs, spironolactone 25 mg daily with acute kidney injury. Not ideal case for resumption for sotalol 80 mg twice a day/home medication Received IV Lasix 40 mg IV twice a day previously. This currently on hold due to elevated BUN/creatinine. 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 difficile Hypoalbuminemia Patient currently Glucerna 1.5@60 cc an hour/currently at goal Metoprolol 40 mg IV twice a day Patient has been followed by Dr. Mallory as outpatient. He has not been able to follow closely with [facility] due to financial reasons. states he has Prograf levels done at [facility] and [facility] [place] [facility]. She states he has been referred to [facility] for possible repeat transplant due to plasma cell hepatitis but has not had followup appointment yet. Per GI notes, patient was refused for liver transplant at [facility] due to prior association with [place]. Prograf level currently 5.2. A.m. level pending. Currently on 1 mg twice a day CT abd/pelvis 03/21non-contrast - pneumobilia, fecal impaction, no free air or fluid. repeat CT abd pelvis 03/22: no change. Patient known to Dr. Mallory. GI has signed off for now, reconsult if needed. On Xifaxan 550 twice a day and lactulose 30 cc twice a day. UROLOGY: BPH Hold Proscar 5 milligrams daily Flomax 0.4 mg daily in light of hypotension. Resume when clinically indicated Maintain Mcpherson catheter FEN/RENAL: Acute on chronic kidney injury- persistent. Acute Uremia Hypernatremia Hypokalemia Hyperphosphatemia Monitor intake and output hourly. Monitor electrolytes and replace as indicated. Urine eosinophils negative 03/24. Avoid nephrotoxic drugs Appreciate nephrology consultation. increase free water to 300cc q4h. continue d5w @ 50cc/hr. Start on PhosLo 667 mg by mouth 3 times a day phosphorus binder. recheck daily electrolytes, including phos. ID: Septic shock-resolved LLL HCAP- Acinetobacterbaummini bacteremia C difficile diarrhea Continue Unasyn For Acinetobacter bacteremia (pansensitive) and 1 more days per IDs notes Vancomycin 500 po qid 03/29 and IV Flagyl 500 mg every 8 hours started for C. difficile 027 positive ID following: Dr. Anaya. HEME: Leukocytosis- resolved. Chronic normocytic anemia Acute on chronic Thrombocytopenia Left cephalic/basilic superficial thrombus Monitor CBC daily monitor trends. Preliminary bilateral upper extremity Dopplers revealed left cephalic/basilic superficial thrombus. Treated with DVT prophylaxis does not meet transfusion triggers at this time. ENDO: Diabetes mellitus Hyperglycemia Insulin Detemir 15 units subcutaneous q12. Currently on sliding scale insulin/high regimen every 4 hours 0 units sliding scale past 24 hours Wean Hydrocortisone 50 IV daily and continue to discontinue 04/04 PROPH: SCDs. Continue heparin 5000 units subcutaneous twice a day Pantoprazole 40 mg IV twice a day ACCESS: Right subclavian central venous line placed 03/29 #5. Left radial art line 03/29 #5 Dispo: remain in ICU. Juan R Randle MD Apr 03, 2017 09:23
--- NOTE | 2017-04-03 09:50 | HHI.IDPN ---
Subjective Subjective Remarks C.diff positive 027 strain; amount of stool significantly improved down to 250- 400 cc/day tolerating weaning, on CPAP afebrile WBC improved down to 9.8 Antibiotics Amp/S IV flagyl po vanco Allergies: Coded Allergies: *MDRO Multi-Drug Resistant Organism (Verified Adverse Reaction, Unknown, ) MRSA (heel wound) - 07/23/16 MRSA PCR Screen POSITIVE-03/22/17 Objective . Vital Signs Date Time Temp Pulse Resp B/P Pulse Ox O2 Delivery O2 Flow Rate FiO2 04/03/17 07:45 100 40 04/03/17 06:00 75 04/03/17 04:34 100 40 04/03/17 04:00 92 04/03/17 04:00 40 04/03/17 04:00 97.8 92 16 134/61 100 132/62 04/03/17 02:18 100 40 04/03/17 02:00 75 04/03/17 00:00 40 04/03/17 00:00 97.6 71 16 132/76 100 143/60 04/03/17 00:00 71 04/02/17 22:51 100 40 04/02/17 22:00 71 04/02/17 20:08 100 40 04/02/17 20:00 40 04/02/17 20:00 98.0 75 16 123/66 100 128/53 04/02/17 20:00 75 04/02/17 18:00 78 04/02/17 17:00 75 04/02/17 16:53 100 40 04/02/17 16:00 40 04/02/17 16:00 97.8 80 155/67 97 135/73 04/02/17 16:00 80 04/02/17 15:00 89 04/02/17 14:00 72 04/02/17 13:00 75 04/02/17 12:00 97.8 78 154/63 100 136/75 04/02/17 12:00 78 04/02/17 12:00 40 04/02/17 11:50 100 40 04/02/17 11:00 74 04/02/17 10:00 88 04/02/17 04/02/17 04/03/17 15:00 23:00 07:00 Intake Total 1555 ml 1118 ml 1602 ml Output Total 1000 ml 1000 ml 850 ml Balance 555 ml 118 ml 752 ml Intake IV Total 851 ml 733 ml 818 ml Tube Feeding 204 ml 325 ml 384 ml Other 500 ml 60 ml 400 ml Output Urine Total 950 ml 1000 ml 650 ml Stool Total 50 ml 200 ml . Laboratory Tests Test 04/01/17 04/02/17 04/03/17 15:30 08:06 03:30 White Blood Count 9.8 TH/MM3 10.7 TH/MM3 7.7 TH/MM3 Red Blood Count 2.19 MIL/MM3 2.59 MIL/MM3 2.42 MIL/MM3 Hemoglobin 6.3 GM/DL 7.5 GM/DL 7.0 GM/DL Hematocrit 18.8 % 22.0 % 20.8 % Mean Corpuscular Volume 85.8 FL 85.0 FL 85.9 FL Mean Corpuscular Hemoglobin 28.9 PG 29.2 PG 28.9 PG Mean Corpuscular Hemoglobin 33.8 % 34.3 % 33.7 % Concent Red Cell Distribution Width 16.6 % 16.4 % 17.0 % Platelet Count 112 TH/MM3 121 TH/MM3 113 TH/MM3 Mean Platelet Volume 8.7 FL 8.3 FL 8.9 FL Neutrophils (%) (Auto) 89.0 % 75.6 % Lymphocytes (%) (Auto) 5.7 % 15.1 % Monocytes (%) (Auto) 4.8 % 8.0 % Eosinophils (%) (Auto) 0.3 % 1.1 % Basophils (%) (Auto) 0.2 % 0.2 % Neutrophils # (Auto) 9.6 TH/MM3 5.8 TH/MM3 Lymphocytes # (Auto) 0.6 TH/MM3 1.2 TH/MM3 Monocytes # (Auto) 0.5 TH/MM3 0.6 TH/MM3 Eosinophils # (Auto) 0.0 TH/MM3 0.1 TH/MM3 Basophils # (Auto) 0.0 TH/MM3 0.0 TH/MM3 CBC Comment AUTO DIFF AUTO DIFF Differential Total Cells 100 Counted Neutrophils % (Manual) 86 % Band Neutrophils % 5 % Lymphocytes % 5 % Monocytes % 4 % Neutrophils # (Manual) 9.7 TH/MM3 Differential Comment FINAL DIFF AUTO DIFF MANUAL CONFIRMED Platelet Estimate LOW Platelet Morphology Comment NORMAL Ovalocytes 1+ Laboratory Tests Test 04/01/17 04/02/17 04/02/17 04/03/17 15:30 08:06 19:55 03:30 Sodium Level 152 MEQ/L 154 MEQ/L 152 MEQ/L 153 MEQ/L Potassium Level 3.3 MEQ/L 3.2 MEQ/L 3.2 MEQ/L 3.4 MEQ/L Chloride Level 114 MEQ/L 114 MEQ/L 117 MEQ/L 117 MEQ/L Carbon Dioxide Level 25.3 MEQ/L 27.1 MEQ/L 24.6 MEQ/L 26.5 MEQ/L Anion Gap 13 MEQ/L 13 MEQ/L 10 MEQ/L 10 MEQ/L Blood Urea Nitrogen 135 MG/DL 135 MG/DL 128 MG/DL 129 MG/DL Creatinine 2.22 MG/DL 1.94 MG/DL 1.79 MG/DL 1.77 MG/DL Estimat Glomerular Filtration 30 ML/MIN 35 ML/MIN 38 ML/MIN 39 ML/MIN Rate Random Glucose 126 MG/DL 113 MG/DL 96 MG/DL 100 MG/DL Calcium Level 7.8 MG/DL 7.7 MG/DL 7.8 MG/DL 7.8 MG/DL Phosphorus Level 5.2 MG/DL 4.4 MG/DL Magnesium Level 2.4 MG/DL 2.4 MG/DL Total Bilirubin 0.5 MG/DL 0.4 MG/DL Aspartate Amino Transf 33 U/L 29 U/L (AST/SGOT) Alanine Aminotransferase 22 U/L 19 U/L (ALT/SGPT) Alkaline Phosphatase 99 U/L 81 U/L Total Creatine Kinase 26 U/L Total Protein 5.8 GM/DL 5.5 GM/DL Albumin 2.1 GM/DL 1.9 GM/DL Imaging Last Impressions Chest X-Ray 04/03/17 0600 Signed Impressions: Service Date/Time: Monday, April 03, 2017 03:47 - CONCLUSION: Persistent bibasilar pleuroparenchymal opacities. Vin Perez MD Upper Extremity Ultrasound 03/29/17 0000 Signed Impressions: Service Date/Time: Wednesday, March 29, 2017 11:02 - CONCLUSION: Small amount of thrombus in the left cephalic vein and the left basilic vein. Right upper extremity is unremarkable . Valerio Jerome MD Lower Extremity Ultrasound 03/29/17 0000 Signed Impressions: Service Date/Time: Wednesday, March 29, 2017 10:40 - CONCLUSION: Normal examination. Valerio Jerome MD Abdomen Ultrasound 03/22/172122 Signed Impressions: Service Date/Time: Wednesday, March 22, 2017 08:14 - CONCLUSION: 1. Mild diffusely heterogeneous transplant liver echotexture with small amount of volume loss. No definitive evidence for portal venous gas or significant pneumobilia by ultrasound exam. However, examination was not specifically tailored for extended interrogation of the hepatic vasculature. 2. No sonographic evidence for intra-or extrahepatic ductal dilatation. 3. Trace ascites and small bilateral pleural effusions. Everton Cruz MD Chest CT 03/22/17 Signed Impressions: Service Date/Time: Wednesday, March 22, 2017 15:37 - CONCLUSION: There is ascites and bilateral pleural effusion and worsening left lung consolidation. Indu Cunningham MD Abdomen/Pelvis CT 03/22/17 Signed Impressions: Service Date/Time: Wednesday, March 22, 2017 15:40 - CONCLUSION: Increase in ascites and mesenteric congestion since the prior exam. Indu Cunningham MD Abdomen X-Ray 03/22/17 Signed Impressions: Service Date/Time: Wednesday, March 22, 2017 07:00 - CONCLUSION: No findings characteristic of perforation. Nasogastric tube coiled within the fundus of the stomach. Emilio Snow MD Head CT 03/21/17 Signed Impressions: Service Date/Time: Tuesday, March 21, 2017 23:27 - CONCLUSION: Normal examination. Valerio Jerome MD Physical Exam CONSTITUTIONAL/GENERAL: This is an adequately nourished patient, in no apparent distress. TUBES/LINES/DRAINS: SKIN: no jaundice, rashes, or lesions. Skin temperature appropriate.Non diaphoretic. EYES: Pupils reactive . + minimal scleral icterus. No injection or drainage. Fundi not examined. NECK: Trachea midline. CARDIOVASCULAR: Regular rate and rhythm + 3/6 syst murmur, no gallops, or rubs. No JVD. Periphery is poorly perfused RESPIRATORY/CHEST: Symmetric, respirations. B/l rhonchi. GASTROINTESTINAL: Abdomen soft, mildly tender palpation, + moderately distended. No hepato-splenomegaly, or palpable masses. No guarding. Bowel sounds present. Liquid brown stool in dignishield bag GENITOURINARY: Without palpable bladder distension. Mcpherson catheter in place with clear yellow urine MUSCULOSKELETAL: Extremities without clubbing, + edema small amount no cyanosis . No mottling or clubbing. NEUROLOGICAL: responds to touch not opening eyes not following commnads PSYCHIATRIC: easily gets agitated Assessment & Plan Remarks Sepsis, septic shock, Acinetobacter chávez S clinically improved repeat blood clx are negative Source is jean carlos bacteremiic gram negative PNA 2/2 Acinetobacter : though no growth on clx, Gstain was with GNBs LLL PNA , gram negative ? acinetobacter Acinetobacter bacteremia Acute VDRF, tolerates wening ARF on CKD: no e/o interst nephritis - slowlyu resolving Immunosuppressed, sp liver transplant Critically ill, stable Severe leukocytosis with leukemoid reaction: resolved hypervirulent C.diff, severe - improving REC's:cont Amp/sulbactam thru tomorrow other option cefepime, fortaz; will avoid Rocephin in liver transplant pt 2 /2 cholestatic risks cont vanco PO, 500 ; anticipate total duration of 14 days ; dose can be dropped to 125 if cont to imprve clinically dc Flagyl IV will see as needed; call for any questions arnol RN dw Celestina Yoder MD Apr 03, 2017 09:50
--- NOTE | 2017-04-03 11:25 | HHI.NPPN ---
Subjective History of Present Illness 67-year-old male with past medical history of liver transplant in 2001, hypertension, atrial fibrillation, hyperlipidemia, diabetes mellitus, history of atrial fibrillation with ablation, chronic kidney disease was admitted on March 19 because of a lethargy and decreased responsiveness. I was called due to decrease urine out put and increasing Creatinine. Additional Remarks Patient remain on the vent. and now sleepy. Objective Data Data 04/02/17 04/03/17 19:00 07:00 Intake Total 1555 ml 2720 ml Output Total 1000 ml 1850 ml Balance 555 ml 870 ml Intake IV Total 851 ml 1551 ml Tube Feeding 204 ml 709 ml Other 500 ml 460 ml Output Urine Total 950 ml 1650 ml Stool Total 50 ml 200 ml Vital Signs Date Time Temp Pulse Resp B/P Pulse Ox O2 Delivery O2 Flow Rate FiO2 04/03/17 11:00 79 130/69 94 140/57 04/03/17 11:00 79 04/03/17 10:00 81 04/03/17 10:00 81 150/71 97 150/60 04/03/17 09:00 79 139/74 100 149/63 04/03/17 09:00 79 04/03/17 08:00 109 04/03/17 08:00 40 04/03/17 08:00 98.2 109 126/67 100 133/60 04/03/17 07:45 100 40 04/03/17 07:00 80 131/69 100 137/62 04/03/17 07:00 80 04/03/17 06:00 75 04/03/17 04:34 100 40 04/03/17 04:00 92 04/03/17 04:00 40 04/03/17 04:00 97.8 92 16 134/61 100 132/62 04/03/17 02:18 100 40 04/03/17 02:00 75 04/03/17 00:00 40 04/03/17 00:00 97.6 71 16 132/76 100 143/60 04/03/17 00:00 71 04/02/17 22:51 100 40 04/02/17 22:00 71 04/02/17 20:08 100 40 04/02/17 20:00 40 04/02/17 20:00 98.0 75 16 123/66 100 128/53 7/21/17 20:00 75 04/02/17 18:00 78 04/02/17 17:00 75 04/02/17 16:53 100 40 04/02/17 16:00 40 04/02/17 16:00 97.8 80 155/67 97 135/73 04/02/17 16:00 80 04/02/17 15:00 89 04/02/17 14:00 72 04/02/17 13:00 75 04/02/17 12:00 97.8 78 154/63 100 136/75 04/02/17 12:00 78 04/02/17 12:00 40 04/02/17 11:50 100 40 -: 04/03/17 0330 04/03/17 0330 Physical Exam General Appearance: No Acute Distress, Comfortable Eyes Eye Exam: Pupils Equal Throat Throat Exam: Oral Mucosa [place] & Moist Pulmonary Resp Exam: Crackles, Rhonchi, Decreased Bases, Diminished Breath Sounds Cardiology CV Exam: Regular, Normal Sinus Rhythm Gastrointestinal/Abdomen GI Exam: Soft, Non-Tender, Bowel Sounds Present Extremeties Extremities Exam: Trace Edema Neurologic Neuro Exam: Obtunded Assessment/Plan Assessment Summary: RAN/Acute Renal Failure, CKD Stage III Problem List: (1) Atrial fibrillation with RVR (2) Respiratory failure (3) Shortness of breath (4) PNA (pneumonia) (5) CHF (congestive heart failure) (6) Anemia (7) Acute on chronic kidney disease, stage 3 (8) RAN (acute kidney injury) Plan Patient has chronic kidney disease and develop RAN. Patient has good urine out put. Continue gentle hydration. Continue antibiotics. Weaning as per CCM. Avoid Nephrotoxins. Creatinine is now 1.7 and stable. On PO Vanco for C. Difficile. Problem Qualifiers (1) Respiratory failure: Qualified Code: J96.01 - Acute respiratory failure with hypoxia Sunil Maya MD Apr 03, 2017 11:25
--- NOTE | 2017-04-03 15:12 | RADRPT ---
EXAM DATE/TIME: 04/03/2017 14:38 [facility] COMPARISON: No previous studies available for comparison. INDICATIONS : Altered mental status. MEDICAL HISTORY : Hypertension. Congestive heart failure. Diabetes mellitus type 2. SURGICAL HISTORY : Loop recorder, Liver transplant. ENCOUNTER: Initial ACUITY: 1 day PAIN SCORE: 0/10 LOCATION: cranial TECHNIQUE: Multiplanar, multisequence MRI of the brain was performed without contrast. FINDINGS: CEREBRUM: The ventricles are normal for age. No evidence of midline shift, mass lesion, hemorrhage or acute in farction. Small bilateral subdural fluid collections measuring 6 mm on the right and 10 mm in the lef t. These are likely subdural hygromas although there is some minimal hemorrhage in the left subdural fluid collection.. The pituitary gland and suprasellar cistern are normal in configuration. WHITE MATTER: Scattered T2 bright signal abnormalities are seen in the white matter. POSTERIOR FOSSA: The cerebellum and brainstem are intact. The 4th ventricle is midline. The cerebellopontine angle is unremarkable. The cerebellar tonsils are normal in position. DIFFUSION IMAGING: No focal areas of restricted diffusion are seen. No evidence of acute infarction. EXTRACRANIAL: The visualized portions of the orbits and paranasal sinuses are unremarkable. CONCLUSION: 1. Bilateral subdural fluid collections likely hygromas although there is some minimal acute hemorrha ge in the left subdural fluid collection measuring 10 mm on the left and 6 mm on the right. No midlin e shift or mass effect. Noncontrast CT brain recommended. 2. Minimal nonspecific white matter changes. 3. No acute infarction. Medhat Cevallos MD on April 03, 2017 at 15:06 Board Certified Radiologist. This report was verified electronically.
[2017-04-03] MEDS: fentaNYL DRIP 250 ML IV SCH (20:30)
[2017-04-03] MEDS: SODIUM CHLORIDE 0.9% FLUSH 10 ML FLUSH IV FLUSH PRN (20:31)
[2017-04-04] VITALS (29 sets, daily range): BP systolic 101–152; BP diastolic 49–81; PULSE 62–100; RESP 18–25; TEMP 97.3–98.5; O2SAT 87–100
[2017-04-04] MEDS: PROPOFOL 1000 MG/100 ML INJ 100 ML IV SCH ×7 (00:20→22:41)
[2017-04-04] MEDS: DILTIAZEM HCL 90 MG TAB PO SCH ×5 (00:20→23:55)
[2017-04-04] MEDS: RESP: ALBUTEROL 2.5 MG/3 ML NEB (PRN) NEB (00:53)
[2017-04-04] MEDS: RESP: ALBUTEROL 2.5 MG/IPRATROPIUM 0.5 MG NEB (SCH) NEB ×4 (03:50→19:36)
[2017-04-04] MEDS: HIGH DOSE INSULIN NOVOLIN REGULAR SUPPLEMENTAL SCALE SQ SCH ×7 (04:00→23:54)
[2017-04-04] MEDS: CHLORHEXIDINE GLUCONATE 2 % 1 PACK (2 CLOTHS) TOP SCH (04:00)
[2017-04-04 04:37] LABS: AUTOMATED NEUTROPHIL # 8.3 TH/MM3 (1.8-7.7); BASOPHIL # 0.1 TH/MM3 (0-0.2); BASOPHIL % 0.9 % (0.0-2.0); EOSINOPHIL # 0.1 TH/MM3 (0-0.4); EOSINOPHIL % 1.4 % (0.0-4.0); HEMATOCRIT 23.9 % (39.0-51.0); LYMPH % 11.5 % (9.0-44.0); LYMPHOCYTE # 1.2 TH/MM3 (1.0-4.8); MEAN CELL VOLUME 86.7 FL (80.0-100.0); MEAN CORPUSCULAR HEMOGLOBIN 29.2 PG (27.0-34.0); MEAN CORPUSCULAR HGB CONC 33.7 % (32.0-36.0); MONO % 4.7 % (0.0-8.0); NEUT % 81.5 % (16.0-70.0); PLATELET COUNT 117 TH/MM3 (150-450); RED BLOOD COUNT 2.76 MIL/MM3 (4.50-5.90); RED CELL DISTRIBUTION WIDTH 16.8 % (11.6-17.2); WHITE BLOOD COUNT 10.1 TH/MM3 (4.0-11.0)
[2017-04-04 04:39] LABS: HEMO FLAGS AUTO DIFF
[2017-04-04] MEDS: FREE WATER G-TUBE SCH ×7 (04:48→23:55)
[2017-04-04] MEDS: AMPICILLIN-SULBACTAM INJ 3 GM in SODIUM CHLORIDE 0.9% INJ 100 ML IV SCH (04:50)
[2017-04-04 04:54] LABS: BICARBONATE 26.9 MEQ/L (21.0-32.0); MAGNESIUM 2.2 MG/DL (1.5-2.5); POTASSIUM 3.8 MEQ/L (3.5-5.1)
[2017-04-04 06:39] LABS: SCAN/DIFF AUTO DIFF CONFIRMED
[2017-04-04] MEDS: VANCOMYCIN 500 MG VIAL (FOR ORAL USE ONLY) PO SCH ×4 (08:25→22:04)
[2017-04-04] MEDS: DOCUSATE SODIUM 50 MG/SENNA 8.6 MG TAB PO SCH ×2 (08:25→22:03)
[2017-04-04] MEDS: CALCIUM ACETATE 667 MG CAP PO SCH ×3 (08:25→16:50)
[2017-04-04] MEDS: TACROLIMUS 1 MG CAP PO SCH ×2 (08:25→16:50)
[2017-04-04] MEDS: CHOLECALCIFEROL (VIT D3) 1000 UNIT TAB PO SCH ×2 (08:25→22:04)
[2017-04-04] MEDS: RIFAXIMIN 550 MG TAB OG-TUBE SCH ×2 (08:25→22:03)
[2017-04-04] MEDS: FOLIC ACID 1 MG TAB PO SCH ×2 (08:25→22:04)
[2017-04-04] MEDS: PANTOPRAZOLE SODIUM 40 MG VIAL IV SCH ×2 (08:25→22:04)
[2017-04-04] MEDS: HEPARIN SODIUM - SQ 10,000 UNITS/ML VIAL SQ SCH ×2 (08:25→22:04)
[2017-04-04] MEDS: SODIUM CHLORIDE 0.9% FLUSH 10 ML FLUSH IV FLUSH SCH ×2 (08:26→20:39)
[2017-04-04] MEDS: CHLORHEXIDINE 0.12% (ORAL KIT) 15 ML CUP MT SCH ×2 (08:26→20:39)
[2017-04-04] MEDS: INSULIN DETEMIR 100 UNITS/ML VIAL SQ SCH ×2 (08:28→22:40)
[2017-04-04 09:10] LABS: BLOOD GAS BASE EXCESS -1.8 mmol/L (-2-2); BLOOD GAS CARBOXYHEMOGLOBIN 1.5 % (0-4); BLOOD GAS HCO3 23 mmol/L (22-26); BLOOD GAS METHEMOGLOBIN 1.7 % (0-2); BLOOD GAS O2 HGB SATURATION 76 % (90-100); BLOOD GAS PCO2 39 mmHg (38-42); BLOOD GAS PO2 45 mmHg (61-120); BLOOD GAS TOTAL HGB 8.3 G/DL (12.0-16.0); CRITICAL VALUE YES; OXYGEN DEVICE VENTILATOR; TEMP CORR TO 98.6
[2017-04-04 09:11] LABS: DRAW SITE ART LINE; FIO2 40 %; STAT YES; ULNAR PULSE PRESENT; VENT SETTINGS CPAP+5/PS+10
--- NOTE | 2017-04-04 09:48 | RADRPT ---
EXAM DATE/TIME: 04/04/2017 09:13 [facility] COMPARISON: CHEST SINGLE AP, April 03, 2017, 3:47. INDICATIONS : Respiratory failure and sepsis MEDICAL HISTORY : Hypertension. Cirrhosis. Diabetes mellitus type II. Hepatitis B and C, SURGICAL HISTORY : Liver transplant ENCOUNTER: Subsequent ACUITY: 1 week PAIN SCORE: Non-responsive. LOCATION: Bilateral chest FINDINGS: Right pleural effusion has not changed. There is also small left pleural effusion. Left lung base air space process is present slightly worse since the prior examination and there is mild haziness the ri ght lung base. Lines and tubes are present not significantly changed. CONCLUSION: Worsening left lung base airspace process otherwise not significantly changed. Indu Cunningham MD on April 04, 2017 at 9:45 Board Certified Radiologist. This report was verified electronically.
[2017-04-04] MEDS ORDERED: LIDOCAINE HCL 2% 100 MG/5 ML SYRINGE ONE (10:06)
--- NOTE | 2017-04-04 11:13 | HHI.NPPN ---
Subjective History of Present Illness 67-year-old male with past medical history of liver transplant in 2001, hypertension, atrial fibrillation, hyperlipidemia, diabetes mellitus, history of atrial fibrillation with ablation, chronic kidney disease was admitted on March 19 because of a lethargy and decreased responsiveness. I was called due to decrease urine out put and increasing Creatinine. Additional Remarks Patient remain on the vent. and just has Bronchoscopy done, sedated. Objective Data Data 04/03/17 04/04/17 19:00 07:00 Intake Total 1913 ml 2550 ml Output Total 1050 ml 2900 ml Balance 863 ml -350 ml Intake Oral 0 ml IV Total 908 ml 861 ml Tube Feeding 174 ml 489 ml Packed Cells 331 ml Other 500 ml 1200 ml Output Urine Total 1000 ml 1950 ml Stool Total 50 ml 950 ml Gastric Drainage Total 0 ml Vital Signs Date Time Temp Pulse Resp B/P Pulse Ox O2 Delivery O2 Flow Rate FiO2 04/04/17 10:00 80 04/04/17 08:45 87 40 04/04/17 08:00 84 04/04/17 08:00 40 04/04/17 08:00 97.6 84 25 140/72 90 131/62 04/04/17 06:00 88 04/04/17 05:46 93 40 04/04/17 05:45 50 04/04/17 05:00 50 04/04/17 05:00 97 122/64 94 117/60 04/04/17 04:30 85 134/65 92 04/04/17 04:00 98.3 80 146/81 92 152/70 04/04/17 04:00 90 04/04/17 04:00 40 04/04/17 03:50 92 40 04/04/17 03:30 81 145/68 91 04/04/17 03:00 80 140/74 90 141/66 04/04/17 02:30 79 149/68 91 04/04/17 02:00 81 04/04/17 02:00 80 138/78 91 149/68 04/04/17 01:30 79 152/70 96 04/04/17 01:00 78 148/74 93 150/68 04/04/17 00:30 80 136/65 88 04/04/17 00:00 78 04/04/17 00:00 40 04/04/17 00:00 98.1 79 136/74 92 149/68 04/04/17 00:00 79 136/74 92 149/68 04/03/17 23:30 79 158/72 99 04/03/17 23:00 80 136/82 99 154/71 04/03/17 22:55 100 40 04/03/17 22:30 79 151/70 96 04/03/17 22:00 80 146/76 97 160/72 04/03/17 22:00 80 04/03/17 21:30 81 145/66 93 04/03/17 21:00 83 142/72 94 140/66 04/03/17 20:30 84 146/68 96 04/03/17 20:00 40 04/03/17 20:00 103 04/03/17 20:00 98.2 82 145/62 94 04/03/17 19:50 94 40 04/03/17 18:18 100 100 04/03/17 18:00 85 123/56 85 04/03/17 18:00 85 04/03/17 17:00 87 04/03/17 17:00 87 135/59 91 04/03/17 16:07 93 40 04/03/17 16:00 109 04/03/17 16:00 40 04/03/17 16:00 98.4 109 202/86 100 04/03/17 14:00 81 04/03/17 14:00 81 138/73 100 150/62 04/03/17 13:00 83 04/03/17 13:00 83 136/75 100 151/64 04/03/17 12:00 79 04/03/17 12:00 98.3 79 127/69 99 67/46 04/03/17 12:00 40 04/03/17 11:41 97 40 -: 04/04/17 0425 04/04/17 0425 Physical Exam General Appearance: No Acute Distress, Comfortable Eyes Eye Exam: Pupils Equal Throat Throat Exam: Oral Mucosa [place] & Moist Pulmonary Resp Exam: Crackles, Rhonchi, Decreased Bases, Diminished Breath Sounds Cardiology CV Exam: Regular, Normal Sinus Rhythm Gastrointestinal/Abdomen GI Exam: Soft, Non-Tender, Bowel Sounds Present Extremeties Extremities Exam: Trace Edema Neurologic Neuro Exam: Sedated Assessment/Plan Assessment Summary: RAN/Acute Renal Failure, CKD Stage III Problem List: (1) Atrial fibrillation with RVR (2) Respiratory failure (3) Shortness of breath (4) PNA (pneumonia) (5) CHF (congestive heart failure) (6) Anemia (7) Acute on chronic kidney disease, stage 3 (8) RAN (acute kidney injury) Plan Patient has chronic kidney disease and develop RAN. Patient has good urine out put. Continue gentle hydration. Continue antibiotics. Weaning as per CCM. Avoid Nephrotoxins. Creatinine is stable, possibly at his baseline. Na. is slightly better. On PO Vanco for C. Difficile. Possible extubation as tolerated. Continue antibiotics. Problem Qualifiers (1) Respiratory failure: Qualified Code: J96.01 - Acute respiratory failure with hypoxia Sunil Maya MD Apr 04, 2017 11:13
--- NOTE | 2017-04-04 11:14 | HHI.CCPN ---
Subjective Remarks/Hospital Course 67-year-old male with past medical history of primary sclerosing cholangitis with orthotopic liver transplant at [facility] in 2001, hypertension, atrial fibrillation status post ablation, hyperlipidemia, diabetes mellitus who presents to [facility] emergency department with altered mental status, fever, urinary incontinence. He was brought in by his . She states that this morning he was doing well and participated with home health physical therapy. When his returned home this evening she found him lethargic and minimally responsive. He had a cup full of mucus and when she inquired about it he stated that he had vomited. He refused ambulance transport. He had a temperature of 103 upon arrival to the emergency department. His states he told ED staff that he had experienced dysuria starting today. He has h/o BPH and UTI in the past. He has chronic low back pain. He denies headache or neck stiffness. His states he returned to his baseline mental status while in the ED and was conversant with her. He had no focal weakness and no witnessed seizure. His ED workup demonstrated U/a with moderate bacteria, 13 WBC, 2 RBC. White blood cell count was 14 with 9% bands, hemoglobin 10.5, platelets 135, AST 45, ALT 31, alkaline phosphatase 172, PT 12.3, INR 1.1 . Creatinine was 2.32 (baseline about 1.6-2), BUN 73, sodium 132 , potassium 5.2, bicarbonate 17 His initial lactic acid was 1.6. He was given Zosyn and 3 L NS bolus and admitted to the hospitalist service. He was complaining of chronic back pain and was anxious/agitated so was given Ativan 0.5 mg IV (chronically on Xanax). ED physician Dr. Orozco was called in because he became unresponsive and he was hypopneic with inadequate respirations. Sats were in the 60s. He complained to his that he could not see. He was hypotensive in 70s and post-intubation BP dropped to 60s/40s and [facility] was called. CVL was placed and he was started on levophed and vasopressin. He is awake on vent and answering questions yes/no. 03/22: patient in refractory distributive shock. I evaluated the patient multiple times throughout the day beginning around 0600 and at frequent intervals. Patient remains acidotic on maximal vasopressor therapy. I had discussions with Dr. Anaya with ID, cultures are growing out Acinetobacter. abx changed to tobra, vanc, meropenem, levaquin, unasyn. continued ivf resuscitation throughout the day guided by frequent IVC and cardiac echo. formal echo with grossly preserved LV function and mild RV dysfunction. but IVC continued to be collapsable. acute renal failure worsening and acidosis severe. started on bicarb drip. repeat CT abd/pelvis performed. I personally transported patient down to CT scanner given how severely unstable the patient was. Discussed with general surgery and interval CT scan is necessary to eval for intra-abdominal source of sepsis. interval CT without change. most likely Acinetobacter pneumonia with overwhelming septic shock. discussed with at length multiple times today regarding his life-threatening infection and his high risk of mortality. 03/23: vasopressors weaning down. patient waking up, following commands. still persistently acidotic, in multiorgan failure. renal dysfunction persists and oliguric. acinetobacter sensitivities not resulted. 03/24: off vasopressors. clinically beginning to improve. Acinetobacter is pansensitive. oliguria persists, but Cr stable and no current indication for acute HD. 03/25: went into afib RVR yesterday. given mgso4 and started aggressive forced diuresis with lasix drip at 20mg/hr. converted spontaneously back to NSR after only about 2 hours. This AM net -2.4L/24h. continues to make 200cc/hr uop. hemodynamics stable. very low-dose norepinephrine requirement. Cr stable, though RAN persists. 03/26: remains in afib, intermittently RVR. on diltiazem drip. Cr worse. uop declining. appears intravascularly dry. stopped lasix drip. wbc uptrending, but still appears nontoxic. 03/27 Afebrile, WBC 16.8 from 22k. Afib converted to sinus rhythm in 50s, discontinuing cardizem 5 mg/hr that is running. Creatinine steady at 2.75 ( previoulsy 2.8 <--2.81). UOP was in 70s this morning, now down to 50 cc/hr and 30 cc/hr. Positive fluid balance last 24 hours. Now CI 2.1 SVV 7, SVI 33. Glucose poorly controlled in 200s to 300s despite high does insulin sliding scale. Off vasopressors since this morning. 03/28 C diff positive. Started vancomycin po overnight. Tolerating tube feeds. A fib RVR in 130s this morning and initially hypotensive when went into Afib and levophed started but quickly weaned off. Restarting cardizem drip. BUN increased but creatinine relatively unchanged. UOP better with lasix yesterday and now edema slightly improved. Wean hydrocortisone. Glucose better after initiation of detemir but still 210. 03/29: Afebrile. Intermittently A. fib with RVR currently normal sinus rhythm. -4000 cc urine output has 24 hours. Arousable and intermittently following commands. 03/30: Afebrile. Intermittently in normal sinus rhythm/A. fib with RVR. Adequate prep. Increasing BUN and creatinine noted. Arousable on the ventilator and will follow commands. Tolerate CPAP 1 hour so far today. Positive BM. Increased residuals from tube feeding noted ~ 400 cc 03/31: Currently afebrile. On PSV trial since 08:40. Tolerating tube feeds at goal rate. Back in A. fib with RVR cards drip at 10 mg an hour. Started on normal saline for gentle hydration. Arousable and following commands. 04/01: Currently afebrile. On PSV trials. Tolerating tube feeds at goal. requesting palliative care consult for goals of care. She does not desire trach at this time. 04/02: Afebrile. On ventilator overnight. Received PRBCs overnight and IV fluids adjusted due to hemoglobin 6.3 and sodium 152. No active bleeding noted. Arousable the ventilator will follow commands. Tolerating PSV trials 4 hours yesterday. 04/03: afebrile, awake, alert this morning. on PSV. sodium still 153 despite free water replacement. BUN still significantly elevated. hgb stable at 7. no active bleeding. Cr downtrending slightly. Subjective: 04/04: yesterday passed SBT, but traveled to MRI and was fatigued at the end of the day. This morning, had acute onset of hypoxemia and respiratory distress. CXR with evidence of left-sided mucous plugging. Obtained bronch with evidence of significant LLL mucous plugging. repeat BAL from LLL sent. FK level downtrending to 4.2 on 04/03. Objective Vital Signs Date Time Temp Pulse Resp B/P Pulse Ox O2 Delivery O2 Flow Rate FiO2 04/04/17 10:00 80 04/04/17 08:45 87 40 04/04/17 08:00 97.6 25 140/72 131/62 04/01/17 20:48 Ventilator Intake and Output 04/03/17 04/03/17 04/04/17 08:00 16:00 00:00 Intake Total 1602 ml 1913 ml 1341 ml Output Total 850 ml 1050 ml 1850 ml Balance 752 ml 863 ml -509 ml Result Diagram: 04/04/17 0425 04/04/17 0425 Other Results Laboratory Tests Test 04/04/17 08:55 Blood Gas Puncture Site ART LINE Blood Gas Patient Temperature 98.6 Blood Gas HCO3 23 mmol/L (22-26) Blood Gas Base Excess -1.8 mmol/L (-2-2) Blood Gas Oxygen Saturation 76 % (90-100) Arterial Blood pH 7.38 (7.380-7.420) Arterial Blood Partial 39 mmHg (38-42) Pressure CO2 Arterial Blood Partial 45 mmHg Pressure O2 (61-120) Arterial Blood Oxygen Content 9.0 Vol % (12.0-20.0) Arterial Blood 1.5 % (0-4) Carboxyhemoglobin Arterial Blood Methemoglobin 1.7 % (0-2) Blood Gas Hemoglobin 8.3 G/DL (12.0-16.0) Oxygen Delivery Device VENTILATOR Blood Gas Ventilator Setting CPAP+5/PS+10 Blood Gas Inspired Oxygen 40 % Imaging Last Impressions Chest X-Ray 04/02/17 0600 Signed Impressions: Service Date/Time: Sunday, April 02, 2017 03:55 - CONCLUSION: 1. Bilateral lower lobe atelectasis versus pneumonia. Bilateral effusions There has been no significant change when compared to the prior exam. Arpit Contreras MD Upper Extremity Ultrasound 03/29/17 0000 Signed Impressions: Service Date/Time: Wednesday, March 29, 2017 11:02 - CONCLUSION: Small amount of thrombus in the left cephalic vein and the left basilic vein. Right upper extremity is unremarkable . Valerio Jerome MD Lower Extremity Ultrasound 03/29/17 0000 Signed Impressions: Service Date/Time: Wednesday, March 29, 2017 10:40 - CONCLUSION: Normal examination. Valerio Jerome MD Abdomen Ultrasound 03/22/172122 Signed Impressions: Service Date/Time: Wednesday, March 22, 2017 08:14 - CONCLUSION: 1. Mild diffusely heterogeneous transplant liver echotexture with small amount of volume loss. No definitive evidence for portal venous gas or significant pneumobilia by ultrasound exam. However, examination was not specifically tailored for extended interrogation of the hepatic vasculature. 2. No sonographic evidence for intra-or extrahepatic ductal dilatation. 3. Trace ascites and small bilateral pleural effusions. Everton Cruz MD Chest CT 03/22/17 0000 Signed Impressions: Service Date/Time: Wednesday, March 22, 2017 15:37 - CONCLUSION: There is ascites and bilateral pleural effusion and worsening left lung consolidation. Indu Cunningham MD Abdomen/Pelvis CT 03/22/17 Signed Impressions: Service Date/Time: Wednesday, March 22, 2017 15:40 - CONCLUSION: Increase in ascites and mesenteric congestion since the prior exam. Indu Cunningham MD Abdomen X-Ray 03/22/17 Signed Impressions: Service Date/Time: Wednesday, March 22, 2017 07:00 - CONCLUSION: No findings characteristic of perforation. Nasogastric tube coiled within the fundus of the stomach. Emilio Snow MD Head CT 03/21/17 Signed Impressions: Service Date/Time: Tuesday, March 21, 2017 23:27 - CONCLUSION: Normal examination. Valerio Jerome MD Objective Remarks GENERAL: Chronically ill-appearing 67-year-old male, critically ill, lying in bed. SKIN: Warm and dry. Stage I sacral decubitus ulcer stable HEAD: Atraumatic. Normocephalic. EYES: Pupils equal and round, 2 mm and reactive bilaterally. No scleral icterus. No injection or drainage. ENT: Mucous membranes pink and moist. Oropharynx without erythema or exits. NECK: Trachea midline. No apparent JVD. CARDIOVASCULAR: RRR. sinus by tele this morning. RESPIRATORY: PRVC, rr 18, tv 550, fio2 100%, peep 12. decreased BS on left. GASTROINTESTINAL: Abdomen overall soft, non-tender, nondistended. Dignishield in place with + stool in tubing : Mcpherson in place with light yellow urine output. Positive mild to moderate scrotal edema MUSCULOSKELETAL: There is muscular atrophy involving bilateral hands. Dependent edema and elbows of bilateral upper extremities. There is trace pedal edema. NEUROLOGICAL: Eyes open and makes eye contact. Nods and shakes head to simple question. Follows commands by squeezing hands and giving thumbs up to verbal commands bilaterally. Wiggles toes bilaterally to command Date of Insertion: Mar 29, 2017 Line: Central Venous Catheter Side: Right Location: Subclavian A/P Assessment and Plan Assessment: 67yM s/p prior OLTx in 2001 now admitted with Acinetobacter septic shock and virulent strain C. Difficile colitis, with persistent multiorgan system dysfunction despite long aggressive therapy. Some organs have slight improvement, although overall prognosis is guarded. New acute hypoxic respiratory failure likely secondary to mucous plugging. will recover with elevated PEEP, continue to wean fio2. could consider repeat SBT this afternoon. continue free water replacement. highly complex with multiple medical problems. Critically ill this morning with acute worsening hypoxic respiratory failure requiring 100% fio2 and urgent bronchoscopy. NEURO/PSYCH: Acute Vision change- resolved. Acute metabolic encephalopathy- resolving. Peripheral neuropathy Chronic benzodiazepine use Chronic narcotic use continue low-dose propofol and fentanyl for sedation and vent/ett tolerance. Goal of RASS 0 Daily sedation vacation Per prior notes, patient reported to that he could not see before intubation. ?secondary to profound hypotension and hypoperfusion. Pupils reactive, nodding head peripherally to 1-[address] brain 03/21 revealed no acute intracranial findings MRI brain today Ammonia level -->17 EEG 03/22: severe slowing, no epileptiform activity Hold gabapentin 300 mg by mouth 3 times a day. Hold alprazolam 0.5 mg every 8 hours when necessary Oxycodone liquid 5 mg every 4 hours when necessary pain RESP: Acute hypoxic and hypercarbic respiratory failure- acutely worsening this morning. History of tobacco abuse Acute healthcare associated left lower lobe pneumonia PRVC 550/18/12/100% s/p bronch 04/04 urgently with LLL mucous plugging with thick purulent secretions. continue elevated PEEP at 12. could consider repeat SBT this afternoon if he clinically improves. Ventilator bundle Albuterol/ipratropium nebulizers every 6 hours. Albuterol nebulizers every [address] chest 03/21 - dense consolidation of LLL with air bronchograms. Bronchoscopy with BAL lingula 03/22 - no growth to date SBT as clinically indicated as above CXR 04/02 reveals bilateral infiltrates and bilateral pleural effusions. CV: Septic shock with multi system organ failure- resolved History of atrial fibrillation status post ablation currently intermittent A fib RVR now in normal sinus rhythm History of hypertension Hyperlipidemia Evaluated by Dr. Lovell who has recommended maintenance Cardizem to 90 q6. Initial troponin 0.03, mild increase to 0.06 is likely related to sepsis. Echo from 01/23/17 - +LVH, EF 60-65%. No regional wall motion abnormalities. Left atrial dilation. Echo 03/22- preserved LV function, mild RV dysfunction. collapsable IVC. Hold medications amlodipine 10 mg daily for hypertension on vasopressors, atorvastatin 40 mg daily for dyslipidemia with elevated LFTs, spironolactone 25 mg daily with acute kidney injury. Not ideal case for resumption for sotalol 80 mg twice a day/home medication Received IV Lasix 40 mg IV twice a day previously. This currently on hold due to elevated BUN/creatinine. 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 difficile Hypoalbuminemia Patient currently Glucerna 1.5@60 cc an hour/currently at goal Metoprolol 40 mg IV twice a day Patient has been followed by Dr. Mallory as outpatient. He has not been able to follow closely with [facility] due to financial reasons. states he has Prograf levels done at [place] and [facility]. She states he has been referred to [facility] for possible repeat transplant due to plasma cell hepatitis but has not had followup appointment yet. Per GI notes, patient was refused for liver transplant at [facility] due to prior association with [facility]. Prograf level currently downtrending to 4.7. Increase FK dose to 2mg po BID, recheck daily levels at 08:30am. CT abd/pelvis 03/21non-contrast - pneumobilia, fecal impaction, no free air or fluid. repeat CT abd pelvis 03/22: no change. Patient known to Dr. Mallory. GI has signed off for now, reconsult if needed. On Xifaxan 550 twice a day and lactulose 30 cc twice a day. UROLOGY: BPH Hold Proscar 5 milligrams daily Flomax 0.4 mg daily in light of hypotension. Resume when clinically indicated Maintain Mcpherson catheter FEN/RENAL: Acute on chronic kidney injury- persistent. Acute Uremia Hypernatremia Hypokalemia Hyperphosphatemia Monitor intake and output hourly. Monitor electrolytes and replace as indicated. Urine eosinophils negative 03/24. Avoid nephrotoxic drugs Appreciate nephrology consultation. increase free water to 300cc q4h. continue d5w @ 50cc/hr. PhosLo 667 mg by mouth 3 times a day phosphorus binder. recheck daily electrolytes, including phos. ID: Septic shock-resolved LLL HCAP- Acinetobacterbaummini bacteremia C difficile diarrhea d/c Unasyn today. Vancomycin 500 po qid 03/29 and IV Flagyl 500 mg every 8 hours started for C. difficile 027 positive ID following: Dr. Anaya. HEME: Leukocytosis- resolved. Chronic normocytic anemia Acute on chronic Thrombocytopenia Left cephalic/basilic superficial thrombus Monitor CBC daily monitor trends. Preliminary bilateral upper extremity Dopplers revealed left cephalic/basilic superficial thrombus. Treated with DVT prophylaxis does not meet transfusion triggers at this time. ENDO: Diabetes mellitus Hyperglycemia Insulin Detemir 15 units subcutaneous q12. Currently on sliding scale insulin/high regimen every 4 hours s/p stress dose steroids. PROPH: SCDs. Continue heparin 5000 units subcutaneous twice a day Pantoprazole 40 mg IV twice a day ACCESS: Right subclavian central venous line placed 03/29 #6. Left radial art line 03/29 #6 Dispo: remain in ICU. Critically ill today with worsening acute hypoxic respiratory failure. This patient remains critically ill with one or more organ systems which are or may become a threat to life. I have spent in excess of 31 minutes discontinuously in the care and management of this patient. This time is exclusive of procedures, and includes, but is not limited to, evaluation of the patient, review of the medical record, discussions with family, consultants, nursing staff, or respiratory therapy, and documentation in the medical record. Juan R Randle MD Apr 04, 2017 11:14
[2017-04-04] MEDS ORDERED: LIDOCAINE HCL 2% 100 MG/5 ML SYRINGE OTHER ONE (11:15)
--- NOTE | 2017-04-04 11:16 | PD.PROCEDR ---
Procedure Note Procedure Procedure: Diagnostic and Therapeutic Fiberoptic Bronchoscopy Diagnosis: Left lower lobe pneumonia with acute hypoxic respiratory failure and evidence of mucous plugging with resorptive atelectasis Indications: Acute, sedation with 100% FiO2 hypoxic respiratory failure with evidence of mucous plugging and resorptive atelectasis on chest x-ray Consent: Written consent was obtained Anesthesia: Propofol IV, lidocaine topically on the pily Description of the Procedure: The patient was sedated and mechanically ventilated. The patient was placed on 100% FIO2 and a volume control mode of ventilation. The fiberoptic bronchoscopy was inserted via oral endotracheal tube. The trachea, right and left mainstem bronchi, and sub-segmental bronchi were evaluated. The endobronchial anatomy was normal. Findings: Thick white purulent appearing mucus in the left mainstem bronchus and subsegmental left bronchi, most prominent in the left lower lobe BAL samples: Left lower lobe The patient tolerated the procedure well with no hemodynamic instability or hypoxia. There were no immediate complications noted. At the conclusion of the procedure, the patient was placed back on their pre-procedure ventilatory settings. There was minimal EBL. A chest x-ray has been ordered. I personally performed the procedure. Juan R Randle MD Apr 04, 2017 11:16
--- NOTE | 2017-04-04 11:35 | HHI.GIFU ---
Subjective Remarks Sedated on vent. Had acute onset of hypoxemia and respiratory distress this morning. CXR showed left-sided mucous plugging. Had bronchoscopy with evidence of significant LLL mucous plugging. (Luz Elena Medina) Objective Vitals I&O Vital Signs Date Time Temp Pulse Resp B/P Pulse Ox O2 Delivery O2 Flow Rate FiO2 04/04/17 11:13 96 40 04/04/17 10:00 80 04/04/17 08:45 87 40 04/04/17 08:00 84 04/04/17 08:00 40 04/04/17 08:00 97.6 84 25 140/72 90 131/62 04/04/17 06:00 88 04/04/17 05:46 93 40 04/04/17 05:45 50 04/04/17 05:00 50 04/04/17 05:00 97 122/64 94 117/60 04/04/17 04:30 85 134/65 92 04/04/17 04:00 98.3 80 146/81 92 152/70 04/04/17 04:00 90 04/04/17 04:00 40 04/04/17 03:50 92 40 04/04/17 03:30 81 145/68 91 04/04/17 03:00 80 140/74 90 141/66 04/04/17 02:30 79 149/68 91 04/04/17 02:00 81 04/04/17 02:00 80 138/78 91 149/68 04/04/17 01:30 79 152/70 96 04/04/17 01:00 78 148/74 93 150/68 04/04/17 00:30 80 136/65 88 04/04/17 00:00 78 04/04/17 00:00 40 04/04/17 00:00 98.1 79 136/74 92 149/68 04/04/17 00:00 79 136/74 92 149/68 04/03/17 23:30 79 158/72 99 04/03/17 23:00 80 136/82 99 154/71 04/03/17 22:55 100 40 04/03/17 22:30 79 151/70 96 04/03/17 22:00 80 146/76 97 160/72 04/03/17 22:00 80 04/03/17 21:30 81 145/66 93 04/03/17 21:00 83 142/72 94 140/66 04/03/17 20:30 84 146/68 96 04/03/17 20:00 40 04/03/17 20:00 103 04/03/17 20:00 98.2 82 145/62 94 04/03/17 19:50 94 40 04/03/17 18:18 100 100 04/03/17 18:00 85 123/56 85 04/03/17 18:00 85 04/03/17 17:00 87 04/03/17 17:00 87 135/59 91 04/03/17 16:07 93 40 04/03/17 16:00 109 04/03/17 16:00 40 04/03/17 16:00 98.4 109 202/86 100 04/03/17 14:00 81 04/03/17 14:00 81 138/73 100 150/62 04/03/17 13:00 83 04/03/17 13:00 83 136/75 100 151/64 04/03/17 12:00 79 04/03/17 12:00 98.3 79 127/69 99 67/46 04/03/17 12:00 40 04/03/17 11:41 97 40 I/O 04/03/17 04/03/17 04/03/17 04/04/17 04/04/17 04/04/17 07:00 15:00 23:00 07:00 15:00 23:00 Intake Total 1602 ml 1913 ml 1341 ml 1209 ml Output Total 850 ml 1050 ml 1850 ml 1050 ml Balance 752 ml 863 ml -509 ml 159 ml Intake Oral 0 ml 0 ml IV Total 818 ml 908 ml 578 ml 283 ml Tube Feeding 384 ml 174 ml 263 ml 226 ml Packed Cells 331 ml Other 400 ml 500 ml 500 ml 700 ml Output Urine Total 650 ml 1000 ml 1000 ml 950 ml Stool Total 200 ml 50 ml 850 ml 100 ml Gastric Drainage Total 0 ml 0 ml Laboratory Laboratory Tests Test 04/04/17 04/04/17 04:25 08:55 White Blood Count 10.1 Red Blood Count 2.76 Hemoglobin 8.0 Hematocrit 23.9 Mean Corpuscular Volume 86.7 Mean Corpuscular Hemoglobin 29.2 Mean Corpuscular Hemoglobin 33.7 Concent Red Cell Distribution Width 16.8 Platelet Count 117 Mean Platelet Volume 7.8 Neutrophils (%) (Auto) 81.5 Lymphocytes (%) (Auto) 11.5 Monocytes (%) (Auto) 4.7 Eosinophils (%) (Auto) 1.4 Basophils (%) (Auto) 0.9 Neutrophils # (Auto) 8.3 Lymphocytes # (Auto) 1.2 Monocytes # (Auto) 0.5 Eosinophils # (Auto) 0.1 Basophils # (Auto) 0.1 CBC Comment AUTO DIFF Differential Comment AUTO DIFF CONFIRMED Sodium Level 152 Potassium Level 3.8 Chloride Level 116 Carbon Dioxide Level 26.9 Anion Gap 9 Blood Urea Nitrogen 112 Creatinine 1.66 Estimat Glomerular Filtration 42 Rate Random Glucose 177 Calcium Level 7.9 Phosphorus Level 4.0 Magnesium Level 2.2 Blood Gas Puncture Site ART LINE Blood Gas Patient Temperature 98.6 Blood Gas HCO3 23 Blood Gas Base Excess -1.8 Blood Gas Oxygen Saturation 76 Arterial Blood pH 7.38 Arterial Blood Partial 39 Pressure CO2 Arterial Blood Partial 45 Pressure O2 Arterial Blood Oxygen Content 9.0 Arterial Blood 1.5 Carboxyhemoglobin Arterial Blood Methemoglobin 1.7 Blood Gas Hemoglobin 8.3 Oxygen Delivery Device VENTILATOR Blood Gas Ventilator Setting CPAP+5/PS+10 Blood Gas Inspired Oxygen 40 Imaging Last Impressions Chest X-Ray 04/04/17 0915 Signed Impressions: Service Date/Time: Tuesday, April 04, 2017 09:13 - CONCLUSION: Worsening left lung base airspace process otherwise not significantly changed. Indu Cunningham MD Brain MRI 04/03/17 0000 Signed Impressions: Service Date/Time: Monday, April 03, 2017 14:38 - CONCLUSION: 1. Bilateral subdural fluid collections likely hygromas although there is some minimal acute hemorrhage in the left subdural fluid collection measuring 10 mm on the left and 6 mm on the right. No midline shift or mass effect. Noncontrast CT brain recommended. 2. Minimal nonspecific white matter changes. 3. No acute infarction. Medhat Cevallos MD Upper Extremity Ultrasound 03/29/17 0000 Signed Impressions: Service Date/Time: Wednesday, March 29, 2017 11:02 - CONCLUSION: Small amount of thrombus in the left cephalic vein and the left basilic vein. Right upper extremity is unremarkable . Valerio Jerome MD Lower Extremity Ultrasound 03/29/17 Signed Impressions: Service Date/Time: Wednesday, March 29, 2017 10:40 - CONCLUSION: Normal examination. Valerio Jerome MD Abdomen Ultrasound 03/22/172122 Signed Impressions: Service Date/Time: Wednesday, March 22, 2017 08:14 - CONCLUSION: 1. Mild diffusely heterogeneous transplant liver echotexture with small amount of volume loss. No definitive evidence for portal venous gas or significant pneumobilia by ultrasound exam. However, examination was not specifically tailored for extended interrogation of the hepatic vasculature. 2. No sonographic evidence for intra-or extrahepatic ductal dilatation. 3. Trace ascites and small bilateral pleural effusions. Everton Cruz MD Chest CT 03/22/17 Signed Impressions: Service Date/Time: Wednesday, March 22, 2017 15:37 - CONCLUSION: There is ascites and bilateral pleural effusion and worsening left lung consolidation. Indu Cunningham MD Abdomen/Pelvis CT 03/22/17 Signed Impressions: Service Date/Time: Wednesday, March 22, 2017 15:40 - CONCLUSION: Increase in ascites and mesenteric congestion since the prior exam. Indu Cunningham MD Abdomen X-Ray 03/22/17 Signed Impressions: Service Date/Time: Wednesday, March 22, 2017 07:00 - CONCLUSION: No findings characteristic of perforation. Nasogastric tube coiled within the fundus of the stomach. Emilio Snow MD Head CT 03/21/17 Signed Impressions: Service Date/Time: Tuesday, March 21, 2017 23:27 - CONCLUSION: Normal examination. Valerio Jerome MD Physical Exam HEENT: Normocephalic; atraumatic CHEST: Diminished at left, OETT to vent. CARDIAC: RRR ABDOMEN: Soft, nondistended, nontender; hepatosplenomegaly; bowel sounds faint EXTREMITIES: Trace lower extremity edema SKIN: Generalized pallor [employer]: Sedated on vent (Luz Elena Medina) Assessment and Plan Plan ASSESSMENT: - CDiff colitis, Epid 027 (+). Pt on ampicillin for acinetobacter baumannii/ Haemol bacteremia. ID following. Flexiseal with dark green stool present. On Oral vanco and flagyl. 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 He has not been seen at the [facility] and 5-10 years secondary to financial issues. Unfortunately, he cannot make an appointment to follow up at [facility] until he makes a payment of $8,000 for an outstanding balance. The tells me charles there is no way she can make this payment and that she will have to "deal with that later." We did refer patient to [facility], but patient was declined secondary to having his transplant done at [facility] and they said that he would need to follow up at [facility]. 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 Similar histologic findings can also be seen in plasma cell rich rejection. Correlation with recent BILLY, ASMA, and serum IgG level is recommended. Typical features of acute cellular rejection are not seen. There is no evidence of chronic biliary tract disease or active steatohepatitis. Labs from January 28, 2017 revealed IgG total 3887, IgG1 2359, IgG3 57, IgG4 > 300.00. BILLY negative, ASMA negative. MELD 16. Spoke to Tiana Lo at [facility] to update on patient's condition and to see if he would able to be seen at their facility ([facility] has declined patient per our outpatient referral records). Per Tiana Lo, patient will not be able to be seen or make recommendations at [facility] until they have contacted Central Appointment Scheduling and settles outstanding balance. They cannot make recommendations , as they have not seen this patient since 2007 and would need to start the whole process over again and cannot do this until the outstanding balance is settled. LFTs remain stable with T. Bili 0.4, AST 29, ALT 19, ALk Phosph 81. - Anemia. Pt had drop in hgb 7/20 from 7.8/23.3----> 6.3/18.8. S/P 2 unit of prbc. 8/23.9 today. There was is no obvious blood loss. Tolerating TF. Flexiseal with dark green liquid stool. Will continue PPI and monitor for any signs of active bleeding. - Coagulopathy. Stable - Sepsis with multisystem failure. Pt with bandemia, UTI/PNA. Bronchial washings with no growth 48 hours, mycobacterial culture pending, fungal culture pending urine negative for legionella and streptococcus, urine cx (-), Bcx Acinetobacter Baumannii/Haemol, rpt with no growth. WBC 10.1. ID following, on Ampicillicin. Oral vanco, flagyl - Resp. Failure, HCAP. Abx, Nebs. Vent per CCM. Had acute onset of hypoxemia and respiratory distress this morning. CXR showed left-sided mucous plugging. Had bronchoscopy with evidence of significant LLL mucous plugging. Currently sedated on vent. - RAN with electrolyte abnormalities. Renal following, likely acute injury secondary to acute tubular necrosis r/t hypotension. Avoid nephrotoxins. Creat improved 1.66 - AMS. EEG with diffusely low recording, could be medication effect as the patient was on fentanyl. No hemisphere asymmetries are noted. No epileptiform or seizure activity seen. Currently sedated on vent. - Hx HTN, hyperlipidemia, BPH, per attending. PLAN: - TF as tolerated - Cont. Flagyl - Cont. Oral Vanco - Cont. Prograf - Cont. Xifaxan - Cont. PPI - Cont. to hold lactulose for diarrhea - Abx per ID recommendations - Monitor labs - Monitor stool output - Notify GI of any active bleeding - Supportive care - CCM following - ID following - Further recommendations to follow based on results of above - Of note, patient has been declined by [facility] secondary to having original transplant at [facility] - [facility] will not see patient or make recommendations until they have contacted the Central Appointment Office to resolve outstanding balance- aware. Patient seen and examined by Dr. Benitez and myself and this note is written on her behalf (Luz Elena Medina) Physician Comments seen, examined agree with above possible extubation today drop in hb-no active bleeding diarrhea-improved significantly (Stephanie Benitez MD) Luz Elena Medina Apr 04, 2017 11:35 Stephanie Benitez MD Apr 04, 2017 14:48
--- NOTE | 2017-04-04 12:34 | RADRPT ---
EXAM DATE/TIME: 04/04/2017 11:31 [facility] COMPARISON: CHEST SINGLE AP, April 04, 2017, 9:13. INDICATIONS : Shortness of breath. MEDICAL HISTORY : Hypertension. Cirrhosis. Diabetes mellitus type II. Hepatitis B and C, SURGICAL HISTORY : Liver transplant. ENCOUNTER: Subsequent ACUITY: 1 week PAIN SCORE: Non-responsive. LOCATION: Bilateral chest FINDINGS: Lines and tubes are present not significantly changed. There is no change in bilateral pleural effusi ons, however the left lower lung airspace process is worse. The rest of the examination has not signi ficantly changed. CONCLUSION: Worsening left lung base airspace process. Indu Cunningham MD on April 04, 2017 at 12:31 Board Certified Radiologist. This report was verified electronically.
[2017-04-04 16:26] LABS: BLOOD GAS BASE EXCESS -0.7 mmol/L (-2-2); BLOOD GAS CARBOXYHEMOGLOBIN 1.6 % (0-4); BLOOD GAS HCO3 24 mmol/L (22-26); BLOOD GAS METHEMOGLOBIN 1.3 % (0-2); BLOOD GAS O2 HGB SATURATION 95 % (90-100); BLOOD GAS OXYGEN CONTENT 10.9 Vol % (12.0-20.0); BLOOD GAS PCO2 39 mmHg (38-42); BLOOD GAS PO2 98 mmHg (61-120); CRITICAL VALUE NO; OXYGEN DEVICE VENTILATOR; TEMP CORR TO 98.6; VENT SETTINGS CPAP+5/PS+5
[2017-04-04 16:27] LABS: DRAW SITE ART LINE; FIO2 40 %; STAT NO; ULNAR PULSE PRESENT
[2017-04-04] MEDS: fentaNYL DRIP 250 ML IV SCH (17:38)
[2017-04-05] VITALS (24 sets, daily range): BP systolic 86–163; BP diastolic 46–83; PULSE 62–88; RESP 19; TEMP 97.5–98.8; O2SAT 93–100
[2017-04-05] MEDS: PROPOFOL 1000 MG/100 ML INJ 100 ML IV SCH ×3 (01:51→10:04)
[2017-04-05] MEDS: HIGH DOSE INSULIN NOVOLIN REGULAR SUPPLEMENTAL SCALE SQ SCH ×5 (04:00→20:00)
[2017-04-05] MEDS: CHLORHEXIDINE GLUCONATE 2 % 1 PACK (2 CLOTHS) TOP SCH (04:00)
[2017-04-05] MEDS: FREE WATER G-TUBE SCH ×5 (04:00→20:00)
[2017-04-05] MEDS: RESP: ALBUTEROL 2.5 MG/IPRATROPIUM 0.5 MG NEB (SCH) NEB ×3 (04:22→16:32)
[2017-04-05 05:34] LABS: HEMATOCRIT 22.7 % (39.0-51.0); MEAN CELL VOLUME 87.8 FL (80.0-100.0); MEAN CORPUSCULAR HEMOGLOBIN 29.5 PG (27.0-34.0); MEAN CORPUSCULAR HGB CONC 33.6 % (32.0-36.0); PLATELET COUNT 101 TH/MM3 (150-450); RED BLOOD COUNT 2.59 MIL/MM3 (4.50-5.90); RED CELL DISTRIBUTION WIDTH 16.9 % (11.6-17.2); REVIEW FLAG FINAL; WHITE BLOOD COUNT 10.9 TH/MM3 (4.0-11.0)
[2017-04-05 05:58] LABS: BICARBONATE 26.7 MEQ/L (21.0-32.0); POTASSIUM 3.6 MEQ/L (3.5-5.1)
[2017-04-05] MEDS: TACROLIMUS 1 MG CAP PO SCH ×2 (06:36→17:30)
[2017-04-05] MEDS: DILTIAZEM HCL 90 MG TAB PO SCH ×3 (06:36→17:30)
[2017-04-05] MEDS: CHLORHEXIDINE 0.12% (ORAL KIT) 15 ML CUP MT SCH ×2 (08:00→20:00)
[2017-04-05] MEDS: DOCUSATE SODIUM 50 MG/SENNA 8.6 MG TAB PO SCH ×2 (09:00→21:54)
[2017-04-05] MEDS: SODIUM CHLORIDE 0.9% FLUSH 10 ML FLUSH IV FLUSH SCH ×2 (09:00→21:54)
[2017-04-05] MEDS: INSULIN DETEMIR 100 UNITS/ML VIAL SQ SCH ×2 (09:00→21:00)
[2017-04-05] MEDS: FOLIC ACID 1 MG TAB PO SCH ×2 (10:05→21:54)
[2017-04-05] MEDS: CHOLECALCIFEROL (VIT D3) 1000 UNIT TAB PO SCH ×2 (10:05→21:54)
[2017-04-05] MEDS: HEPARIN SODIUM - SQ 10,000 UNITS/ML VIAL SQ SCH ×2 (10:05→21:50)
[2017-04-05] MEDS: CALCIUM ACETATE 667 MG CAP PO SCH ×3 (10:05→17:30)
[2017-04-05] MEDS: VANCOMYCIN 500 MG VIAL (FOR ORAL USE ONLY) PO SCH ×4 (10:06→21:50)
[2017-04-05] MEDS: PANTOPRAZOLE SODIUM 40 MG VIAL IV SCH ×2 (10:26→21:50)
[2017-04-05] MEDS: RIFAXIMIN 550 MG TAB OG-TUBE SCH ×2 (10:26→21:54)
[2017-04-05] MEDS ORDERED: DEXMEDETOMIDINE HCL 200 MCG/2 ML VIAL ONE ×6 (11:08→17:21)
--- NOTE | 2017-04-05 12:14 | HHI.HCPN ---
Reason for visit a. To assist with evaluation and management of symptoms including: b. To assist medical decision maker(s) with: better understanding of current medical conditions; weighing benefits/burdens of medical treatment options; making medical treatment decisions. Subjective/Interval History Palliative care reconsulted to continue to assist with clarification of goals of treatment--palliative continues to follow this patient, patient seen today to follow up. Pt tolerating CPAP trials on Wednesday, however yesterday 04/04 w/ significant mucous plugging per CXR, with hypoxemia and resp distress. S/p bronchoscopy yesterday, + significant mucous, micro pending. Has remained stable overnight, nurse indicates did not tolerate CPAP trial today due to tachypnea, hypertension. Afebrile. Seen initially in room at 1030, no family present,nurse at bedside, nursing to notify me when family arrives. At that time, pt alert, nodding to some yes/no questions though difficult to assess orientation. Nods no to pain, nods yes when I explain he is in ICU on [facility] vent. When asked to feeder/folder or move feet, he nods yes-- but does not actually move them to commands. Nursing indicates that he had very slight weak movement earlier. Nsg later notified me of family arrival. History as per initial consult by Paul SHIRLEY. Mr. St is a 67 year old male with past medical history of primary sclerosing cholangitis post liver transplant at [facility] in 2001, hypertension, atrial fibrillation status post ablation, anxiety, BPH, chronic back pain, hyperlipidemia and diabetes mellitus. Patient presented to [facility] ER on 03/21/17 with altered mental status, fever and UTI. Patient was participating with home PT earlier in the day, that evening he was lethargic and minimally responsive. Upon arrival to the ER his temp was 103. Additional findings included: * urinalysis with moderate bacteria, WBC and RBC. * WBC 14 with 9% bands, hemoglobin 10.5, platelets 135 * AST 45, ALT 31, alkaline phosphatase 172 * PT 12.3, INR 1.1 * Creatinine was 2.32 (baseline about 1.6-2), BUN 73, sodium 132, potassium 5.2 , bicarbonate 17 * Lactic acid 1.6 * Ammonia 28 * CT brain - negative * CT chest - dense consolidation of LLL with air bronchograms * CT abd/pelvis non-contrast - pneumobilia, fecal impaction, no free air or fluid, concerning for mesenteric ischemia/perforation. Patient was admitted for UTI, sepsis. He was started on Zosyn and given 3 L NS bolus. He was complaining of chronic back pain and was anxious/agitated so was given Ativan 0.5 mg IV (chronically on Xanax). ED physician Dr. Orozco was called in because he became unresponsive and he was hypopneic with inadequate respirations. Sats were in the 60s. Patient was intubated and placed on mechanical ventilation. He complained to his that he could not see. He was hypotensive in 70s and post-intubation BP dropped to 60s/40s. He was started on Levophed and Vasopressin. Hospital course summary as per litigation assistant notes: * 03/22/17 - patient remained in refractory shock but acidotic on maximal vasopressor support. Infectious disease, Dr. Anaya following. Cultures positive Acinetobacter on tobramycin, vancomycin, meropenem, Levaquin and unison. Echocardiogram grossly preserved LV function and mild RV dysfunction. Worsening renal failure and acidosis, bicarb started. Gastroenterology, Dr. Tate was consulted. * 03/24/17 - A. Fib with RVR converted spontaneously to NSR after 2 hours. Off vasopressors, some clinical improvement. Acinetobacter is pansensitive. * 03/26/17 - remains in A. Fib, intermittently RVR on diltiazem drip. Creatinine worse, UOP decreasing. Increasing WBC. * 03/27/17 - Afebrile, WBC 16.8 from 22k. Afib converted to sinus rhythm in 50s, discontinuing cardizem 5 mg/hr that is running. Creatinine steady at 2.75 ( previoulsy 2.8 <--2.81). UOP was in 70s this morning, now down to 50 cc/hr and 30 cc/hr. Positive fluid balance last 24 hours. Now CI 2.1 SVV 7, SVI 33. Glucose poorly controlled in 200s to 300s despite high does insulin sliding scale. Off vasopressors since this morning. * 03/28/17 - C diff positive. Started vancomycin po overnight. Tolerating tube feeds. A fib RVR in 130s this morning and initially hypotensive when went into Afib and levophed started but quickly weaned off. Restarting cardizem drip. BUN increased but creatinine relatively unchanged. UOP better with lasix yesterday and now edema slightly improved. Wean hydrocortisone. Glucose better after initiation of detemir but still 210. * 03/29/17 - Afebrile. Intermittently A. fib with RVR currently normal sinus rhythm. -4000 cc urine output has 24 hours. Arousable and intermittently following commands. * 03/30/17 - Afebrile. Intermittently in normal sinus rhythm/A. fib with RVR. Adequate prep. Increasing BUN and creatinine noted. Arousable on the ventilator and will follow commands. Tolerate CPAP 1 hour so far today. Positive BM. Increased residuals from tube feeding noted ~ 400 cc. Nephrology, Dr. Maya was consulted for elevated BUN/creatinine and decreased UOP likely secondary to acute tubular necrosis due to hypotension recommend gentle hydration and avoidance of nephrotoxins. * 03/31/17 - Currently afebrile. On PSV trial since 08:40. Tolerating tube feeds at goal rate. Back in A. fib with RVR cards drip at 10 mg an hour. Started on normal saline for gentle hydration. Arousable and following commands. * 04/01/17 - Currently afebrile. On PSV trials. Tolerating tube feeds at goal. requesting palliative care consult for goals of care. She does not desire trach at this time. * 04/02/17 - Afebrile. On ventilator overnight. Received PRBCs overnight and IV fluids adjusted due to hemoglobin 6.3 and sodium 152. No active bleeding noted. Arousable the ventilator will follow commands. Tolerating PSV trials 4 hours yesterday. Palliative care is consulted to assist with further clarification of treatment goals. . Family/friend interactions 1230 Nursing later notified me of 's arrival. Met with just outside patient room per her request. Review of current conditions, treatments in place , ventilator weaning trials. Review of current CODE STATUS. She tells me over the weekend she, and other providers were able to talk with the patient regarding reintubation and that at that time he had indicated he would not want to go back on vent, and that he had not yes that he understood that meant that he could ; she feels he had reasonable understanding. She expresses that she thinks he is tired of this, and does not want to suffer. She was hopeful he could be medically extubated, however she was informed he was too tired from weekend events so could not. She feels he would not want to continue on the ventilator for a prolonged time we explore alternative of comfort options including hospice care, hospice care centers, hospice services and philosophy. Review with her possibility of medical extubation, versus removal of mechanical vent if he is unable to wean in the coming days. She is hopeful he can again indicate yes or no regarding if he would want the tube back, she wants palliative to try to have another conversation with him regarding this, she is leaning towards DNI/DNR, just wants to confirm with him again if possible. She would likely want to transition to comfort following any medical extubation ( but is hoping pt would be able to indicate preferences as well once extubated) He is currently lethargic and not participating in interaction. Palliative to f/ up see pt again tomorrow am and call her after exam Advance Directives Living Will: Never completed Health Care Surrogate: Never completed Durable Power of Medicine Tech: Never completed Advance Directive Specifics Health Care Surrogate(s): No known written advance directives per family report. According to [place] statutes, health care proxy decision makers also patient's spouse. . Objective Vital Signs Date Time Temp Pulse Resp B/P Pulse Ox O2 Delivery O2 Flow Rate FiO2 04/05/17 12:00 40 04/05/17 11:10 95 40 04/05/17 11:00 40 04/05/17 08:12 100 40 04/05/17 08:00 40 04/05/17 07:00 78 97/55 100 98/48 04/05/17 06:00 88 04/05/17 06:00 88 144/83 99 158/67 04/05/17 05:01 83 135/74 100 158/72 04/05/17 05:00 83 158/71 100 04/05/17 04:23 99 40 04/05/17 04:00 75 124/63 97 122/54 04/05/17 04:00 97.5 75 19 124/63 97 122/54 04/05/17 04:00 40 04/05/17 04:00 75 04/05/17 03:00 74 130/74 98 137/59 04/05/17 02:00 70 122/70 99 118/54 04/05/17 02:00 70 04/05/17 01:19 98 40 04/05/17 01:00 72 122/62 98 115/53 04/05/17 00:21 72 100/56 98 86/46 04/05/17 00:00 97.9 78 19 137/73 98 131/61 04/05/17 00:00 78 04/05/17 00:00 78 137/73 98 131/61 04/05/17 00:00 78 137/73 98 131/61 04/05/17 00:00 40 04/04/17 23:00 75 113/66 93 101/49 04/04/17 22:56 96 40 04/04/17 22:00 72 04/04/17 22:00 72 114/68 99 107/53 04/04/17 21:00 77 131/72 97 125/58 04/04/17 20:00 74 117/69 99 117/57 04/04/17 20:00 74 04/04/17 20:00 40 04/04/17 20:00 98.5 74 18 117/69 99 117/57 04/04/17 19:37 99 40 04/04/17 18:00 72 04/04/17 16:00 100 04/04/17 16:00 40 04/04/17 16:00 97.3 62 25 150/77 100 149/69 04/04/17 15:00 100 100 04/04/17 14:00 100 Intake & Output 04/05/17 04/05/17 07:00 19:00 Intake Total 2290 ml Output Total 2705.0 ml Balance -415.0 ml IV Total 599 ml Tube Feeding 701 ml Other 990 ml Output Urine Total 1825 ml Stool Total 880 ml Tube Feeding Residual Discard 0 ml Physical Exam CONSTITUTIONAL/GENERAL: This is an adequately nourished patient, on mech vent TUBES/LINES/DRAINS: ETT, NG left nare, right subclavian central line, left wrist arterial line, bilateral soft wrist restraints, Mcpherson, Dignishield rectal drain, SCDs and podus boots. CARDIOVASCULAR: regular rate, no murmur. RESPIRATORY/CHEST: unlabored respirations via mech vent, course breath sounds bilaterally lung malhotra, diminished to bases GASTROINTESTINAL: Abdomen soft, non-tender, nondistended. Bowel sounds hypoactive. TF infusing via NGT GENITOURINARY: Without palpable bladder distension. Mcpherson catheter in place. NEUROLOGICAL: Awake and alert. Nods some yes/no questions, appears appropriate - though difficult to fully assess orientation. does not follow commands to move extremities, though nods head "yes" when requested to move. slight movement to pain stimuli/localizes to pain PSYCHIATRIC: no apparent distress at time of exam. . Diagnostic Tests Laboratory Laboratory Tests Test 04/02/17 04/03/17 04/03/17 04/04/17 19:55 03:30 04:42 04:25 Sodium Level 152 MEQ/L 153 MEQ/L 152 MEQ/L (136-145) (136-145) (136-145) Potassium Level 3.2 MEQ/L 3.4 MEQ/L 3.8 MEQ/L (3.5-5.1) (3.5-5.1) (3.5-5.1) Chloride Level 117 MEQ/L 117 MEQ/L 116 MEQ/L (98-107) (98-107) (98-107) Carbon Dioxide Level 24.6 MEQ/L 26.5 MEQ/L 26.9 MEQ/L (21.0-32.0) (21.0-32.0) (21.0-32.0) Anion Gap 10 MEQ/L (5-15) 10 MEQ/L (5-15) 9 MEQ/L (5-15) Blood Urea Nitrogen 128 MG/DL 129 MG/DL 112 MG/DL (7-18) (7-18) (7-18) Creatinine 1.79 MG/DL 1.77 MG/DL 1.66 MG/DL (0.60-1.30) (0.60-1.30) (0.60-1.30) Estimat Glomerular Filtration 38 ML/MIN (>89) 39 ML/MIN (>89) 42 ML/MIN (>89) Rate Random Glucose 96 MG/DL 100 MG/DL 177 MG/DL (74-106) (74-106) (74-106) Calcium Level 7.8 MG/DL 7.8 MG/DL 7.9 MG/DL (8.5-10.1) (8.5-10.1) (8.5-10.1) White Blood Count 7.7 TH/MM3 10.1 TH/MM3 (4.0-11.0) (4.0-11.0) Red Blood Count 2.42 MIL/MM3 2.76 MIL/MM3 (4.50-5.90) (4.50-5.90) Hemoglobin 7.0 GM/DL 8.0 GM/DL (13.0-17.0) (13.0-17.0) Hematocrit 20.8 % 23.9 % (39.0-51.0) (39.0-51.0) Mean Corpuscular Volume 85.9 FL 86.7 FL (80.0-100.0) (80.0-100.0) Mean Corpuscular Hemoglobin 28.9 PG 29.2 PG (27.0-34.0) (27.0-34.0) Mean Corpuscular Hemoglobin 33.7 % 33.7 % Concent (32.0-36.0) (32.0-36.0) Red Cell Distribution Width 17.0 % 16.8 % (11.6-17.2) (11.6-17.2) Platelet Count 113 TH/MM3 117 TH/MM3 (150-450) (150-450) Mean Platelet Volume 8.9 FL 7.8 FL (7.0-11.0) (7.0-11.0) Neutrophils (%) (Auto) 75.6 % 81.5 % (16.0-70.0) (16.0-70.0) Lymphocytes (%) (Auto) 15.1 % 11.5 % (9.0-44.0) (9.0-44.0) Monocytes (%) (Auto) 8.0 % (0.0-8.0) 4.7 % (0.0-8.0) Eosinophils (%) (Auto) 1.1 % (0.0-4.0) 1.4 % (0.0-4.0) Basophils (%) (Auto) 0.2 % (0.0-2.0) 0.9 % (0.0-2.0) Neutrophils # (Auto) 5.8 TH/MM3 8.3 TH/MM3 (1.8-7.7) (1.8-7.7) Lymphocytes # (Auto) 1.2 TH/MM3 1.2 TH/MM3 (1.0-4.8) (1.0-4.8) Monocytes # (Auto) 0.6 TH/MM3 0.5 TH/MM3 (0-0.9) (0-0.9) Eosinophils # (Auto) 0.1 TH/MM3 0.1 TH/MM3 (0-0.4) (0-0.4) Basophils # (Auto) 0.0 TH/MM3 0.1 TH/MM3 (0-0.2) (0-0.2) CBC Comment AUTO DIFF AUTO DIFF Differential Comment AUTO DIFF AUTO DIFF CONFIRMED CONFIRMED Phosphorus Level 4.4 MG/DL 4.0 MG/DL (2.5-4.9) (2.5-4.9) Magnesium Level 2.4 MG/DL 2.2 MG/DL (1.5-2.5) (1.5-2.5) Total Bilirubin 0.4 MG/DL (0.2-1.0) Aspartate Amino Transf 29 U/L (15-37) (AST/SGOT) Alanine Aminotransferase 19 U/L (12-78) (ALT/SGPT) Alkaline Phosphatase 81 U/L (45-117) Total Protein 5.5 GM/DL (6.4-8.2) Albumin 1.9 GM/DL (3.4-5.0) Tacrolimus (Prograf) Level 4.2 NG/ML (5.0-20.0) Blood Type O POSITIVE Crossmatch Leukocyte-Reduced Red Blood Cells Blood Bank Comment Test 04/04/17 04/04/17 04/05/17 08:55 16:16 03:35 Blood Gas Puncture Site ART LINE ART LINE Blood Gas Patient Temperature 98.6 98.6 Blood Gas HCO3 23 mmol/L 24 mmol/L (22-26) (22-26) Blood Gas Base Excess -1.8 mmol/L -0.7 mmol/L (-2-2) (-2-2) Blood Gas Oxygen Saturation 76 % (90-100) 95 % (90-100) Arterial Blood pH 7.38 7.40 (7.380-7.420) (7.380-7.420) Arterial Blood Partial 39 mmHg (38-42) 39 mmHg (38-42) Pressure CO2 Arterial Blood Partial 45 mmHg 98 mmHg Pressure O2 (61-120) (61-120) Arterial Blood Oxygen Content 9.0 Vol % 10.9 Vol % (12.0-20.0) (12.0-20.0) Arterial Blood 1.5 % (0-4) 1.6 % (0-4) Carboxyhemoglobin Arterial Blood Methemoglobin 1.7 % (0-2) 1.3 % (0-2) Blood Gas Hemoglobin 8.3 G/DL 8.0 G/DL (12.0-16.0) (12.0-16.0) Oxygen Delivery Device VENTILATOR VENTILATOR Blood Gas Ventilator Setting CPAP+5/PS+10 CPAP+5/PS+5 Blood Gas Inspired Oxygen 40 % 40 % White Blood Count 10.9 TH/MM3 (4.0-11.0) Red Blood Count 2.59 MIL/MM3 (4.50-5.90) Hemoglobin 7.6 GM/DL (13.0-17.0) Hematocrit 22.7 % (39.0-51.0) Mean Corpuscular Volume 87.8 FL (80.0-100.0) Mean Corpuscular Hemoglobin 29.5 PG (27.0-34.0) Mean Corpuscular Hemoglobin 33.6 % Concent (32.0-36.0) Red Cell Distribution Width 16.9 % (11.6-17.2) Platelet Count 101 TH/MM3 (150-450) Mean Platelet Volume 8.8 FL (7.0-11.0) Sodium Level 150 MEQ/L (136-145) Potassium Level 3.6 MEQ/L (3.5-5.1) Chloride Level 116 MEQ/L (98-107) Carbon Dioxide Level 26.7 MEQ/L (21.0-32.0) Anion Gap 7 MEQ/L (5-15) Blood Urea Nitrogen 96 MG/DL (7-18) Creatinine 1.53 MG/DL (0.60-1.30) Estimat Glomerular Filtration 46 ML/MIN (>89) Rate Random Glucose 131 MG/DL (74-106) Calcium Level 7.9 MG/DL (8.5-10.1) Result Diagram: 04/05/17 0335 04/05/17 0335 Microbiology Microbiology Date/Time Procedure Status Source Growth 04/04/17 11:45 Gram Stain - Final Resulted Bronchial Washings Bronchial 7/23/17 11:45 Bronchial Culture Resulted Bronchial Washings Bronchial Pending Imaging Last Impressions Chest X-Ray 04/04/17 0915 Signed Impressions: Service Date/Time: Tuesday, April 04, 2017 09:13 - CONCLUSION: Worsening left lung base airspace process otherwise not significantly changed. Indu Cunningham MD Brain MRI 04/03/17 0000 Signed Impressions: Service Date/Time: Monday, April 03, 2017 14:38 - CONCLUSION: 1. Bilateral subdural fluid collections likely hygromas although there is some minimal acute hemorrhage in the left subdural fluid collection measuring 10 mm on the left and 6 mm on the right. No midline shift or mass effect. Noncontrast CT brain recommended. 2. Minimal nonspecific white matter changes. 3. No acute infarction. Medhat Cevallos MD Upper Extremity Ultrasound 03/29/17 0000 Signed Impressions: Service Date/Time: Wednesday, March 29, 2017 11:02 - CONCLUSION: Small amount of thrombus in the left cephalic vein and the left basilic vein. Right upper extremity is unremarkable . Valerio Jerome MD Lower Extremity Ultrasound 03/29/17 Signed Impressions: Service Date/Time: Wednesday, March 29, 2017 10:40 - CONCLUSION: Normal examination. Valerio Jerome MD Abdomen Ultrasound 03/22/172122 Signed Impressions: Service Date/Time: Wednesday, March 22, 2017 08:14 - CONCLUSION: 1. Mild diffusely heterogeneous transplant liver echotexture with small amount of volume loss. No definitive evidence for portal venous gas or significant pneumobilia by ultrasound exam. However, examination was not specifically tailored for extended interrogation of the hepatic vasculature. 2. No sonographic evidence for intra-or extrahepatic ductal dilatation. 3. Trace ascites and small bilateral pleural effusions. Everotn Cruz MD Chest CT 03/22/17 0000 Signed Impressions: Service Date/Time: Wednesday, March 22, 2017 15:37 - CONCLUSION: There is ascites and bilateral pleural effusion and worsening left lung consolidation. Indu Cunningham MD Abdomen/Pelvis CT 03/22/17 0000 Signed Impressions: Service Date/Time: Wednesday, March 22, 2017 15:40 - CONCLUSION: Increase in ascites and mesenteric congestion since the prior exam. Indu Cunningham MD Abdomen X-Ray 03/22/17 0000 Signed Impressions: Service Date/Time: Wednesday, March 22, 2017 07:00 - CONCLUSION: No findings characteristic of perforation. Nasogastric tube coiled within the fundus of the stomach. Emilio Snow MD Head CT 03/21/17 0000 Signed Impressions: Service Date/Time: Tuesday, March 21, 2017 23:27 - CONCLUSION: Normal examination. Valerio Jerome MD Procedures * 03/29/17 left subclavian central line placement * 03/22/17 fiber-optic bronchoscopy with bronchoalveolar lavage * 03/21/17 - left subclavian central line placement * 03/21/17 intubated . Assessment and Plan Disease Oriented Problem List: (1) History of liver transplant (2) Sepsis (3) Urinary tract infection (4) Altered mental status, unspecified (5) CHF (congestive heart failure) (6) Atrial fibrillation with RVR (7) Acute on chronic kidney disease, stage 3 (8) PNA (pneumonia) Symptom Scale: (1) Anxiety 0-10 Scale: Unable to quantify (2) Shortness of breath 0-10 Scale: 0 (3) Debility 0-10 Scale: Unable to quantify (4) Pain 0-10 Scale: 0 Pertinent Non-Medical Issues Psychosocial: . 1 son, lives local. Spiritual: [employer]. Legal: In the absence of written advance directives, according to [place] statutes, health care proxy decision makers also patient's spouse. Ethical issues impacting care: no known concerns at this time. . Important Contacts * Connie St, spouse: [phone] . 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 Overall prognosis appears poor. Would be hospice appropriate if goals are comfort oriented. . Code Status: Full Code Plan * Decision Maker: no known written advance directives, according to [place] stat[place]ige[place], health care proxy decision makers also patient's spouse. * ALTERNATE CODE: intubation only. No cardiac compressions, shock or ACLS. * 04/05/17 :Met w : She feels he would not want to continue on the ventilator for a prolonged time we explore alternative of comfort options including hospice care, hospice care centers, hospice services and philosophy. Review with her possibility of medical extubation, versus removal of mechanical vent if he is unable to wean in the coming days. She is hopeful he can again indicate yes or no regarding if he would want the tube back, she wants palliative to try to have another conversation with him regarding this, she is leaning towards DNI/DNR, just wants to confirm with him again if possible. She would likely want to transition to comfort following any medical extubation ( but is hoping pt would be able to indicate preferences as well once extubated) He is currently lethargic and not participating in interaction. Palliative to f/ up see pt again tomorrow am (04/06) and call her after exam * SYMPTOMS: anxiety: on Propofol. Intermittently tearful per per prev family reports, though not witnessed or reported today. Pain: secondary to bedbound status, acute hospitalization, tubes, general debility and weakness. On Fentanyl drip 100mch/hr. Denies pain during my visit. Dyspnea: Denies shortness of breath during my visit on mech vent, breathing comfortably, though nursing reports later did NOT tolerate CPAP trial. Debility: has had frequent infections and hospitalizations over the past year with increased debility. Now in ICU for 15 days. * Palliative care number provided. * Palliative care will continue to follow throughout hospital course to assist with symptom management and clarification of goals as needed. . Time Spent Total Floor Time (mins): 30 Attestation To help prompt me to consider important information that might be impacting today's encounter and assessment, information from prior notes written by myself or my colleagues may have been "brought forward" into today's note. My signature on this note, however, is an attestation that I personally performed the exam, history, and/or decision-making noted today, and, unless otherwise indicated, the interactions with patient, family, and staff as well as the review of records all occurred today. I also attest that the listed assessment and stated plan reflect my best clinical judgment today based on the combination of historical information, prior notes, and today's exam/ interactions. When time spent is documented, it refers only to time spent today by the signer, or if indicated, combined time spent today by collaborating physician/nurse practitioner. Shannen See Apr 05, 2017 12:14
--- NOTE | 2017-04-05 13:43 | HHI.GIFU ---
Subjective Remarks Patient is sedated on a vent. Per nurse, no obvious bleeding reported, tolerating TF okay, but this is on hold for possible extubation (Shelton Wolfe) Objective Vitals I&O Vital Signs Date Time Temp Pulse Resp B/P Pulse Ox O2 Delivery O2 Flow Rate FiO2 04/05/17 12:00 40 04/05/17 12:00 73 04/05/17 12:00 98.2 73 151/77 93 163/67 04/05/17 11:10 95 40 04/05/17 11:00 40 04/05/17 10:00 74 04/05/17 08:12 100 40 04/05/17 08:00 98.3 74 99/58 100 104/48 04/05/17 08:00 74 04/05/17 08:00 40 04/05/17 07:00 78 97/55 100 98/48 04/05/17 06:00 88 04/05/17 06:00 88 144/83 99 158/67 04/05/17 05:01 83 135/74 100 158/72 04/05/17 05:00 83 158/71 100 04/05/17 04:23 99 40 04/05/17 04:00 75 124/63 97 122/54 04/05/17 04:00 97.5 75 19 124/63 97 122/54 04/05/17 04:00 40 04/05/17 04:00 75 04/05/17 03:00 74 130/74 98 137/59 04/05/17 02:00 70 122/70 99 118/54 04/05/17 02:00 70 04/05/17 01:19 98 40 04/05/17 01:00 72 122/62 98 115/53 04/05/17 00:21 72 100/56 98 86/46 04/05/17 00:00 97.9 78 19 137/73 98 131/61 04/05/17 00:00 78 04/05/17 00:00 78 137/73 98 131/61 04/05/17 00:00 78 137/73 98 131/61 04/05/17 00:00 40 04/04/17 23:00 75 113/66 93 101/49 04/04/17 22:56 96 40 04/04/17 22:00 72 04/04/17 22:00 72 114/68 99 107/53 04/04/17 21:00 77 131/72 97 125/58 04/04/17 20:00 74 117/69 99 117/57 04/04/17 20:00 74 04/04/17 20:00 40 04/04/17 20:00 98.5 74 18 117/69 99 117/57 04/04/17 19:37 99 40 04/04/17 18:00 72 04/04/17 16:00 100 04/04/17 16:00 40 04/04/17 16:00 97.3 62 25 150/77 100 149/69 04/04/17 15:00 100 100 04/04/17 14:00 100 I/O 04/04/17 04/04/17 04/04/17 04/05/17 04/05/17 04/05/17 07:00 15:00 23:00 07:00 15:00 23:00 Intake Total 1209 ml 820 ml 865 ml 1425 ml Output Total 1050 ml 700 ml 1210 ml 1495 ml Balance 159 ml 120 ml -345 ml -70 ml Intake Oral 0 ml IV Total 283 ml 320 ml 281 ml 318 ml Tube Feeding 226 ml 0 ml 254 ml 447 ml Other 700 ml 500 ml 330 ml 660 ml Output Urine Total 950 ml 700 ml 900 ml 925 ml Stool Total 100 ml 0 ml 310 ml 570 ml Gastric Drainage Total 0 ml Tube Feeding Residual Discard 0 ml 0 ml Laboratory Laboratory Tests Test 04/04/17 04/05/17 16:16 03:35 Blood Gas Puncture Site ART LINE Blood Gas Patient Temperature 98.6 Blood Gas HCO3 24 Blood Gas Base Excess -0.7 Blood Gas Oxygen Saturation 95 Arterial Blood pH 7.40 Arterial Blood Partial 39 Pressure CO2 Arterial Blood Partial 98 Pressure O2 Arterial Blood Oxygen Content 10.9 Arterial Blood 1.6 Carboxyhemoglobin Arterial Blood Methemoglobin 1.3 Blood Gas Hemoglobin 8.0 Oxygen Delivery Device VENTILATOR Blood Gas Ventilator Setting CPAP+5/PS+5 Blood Gas Inspired Oxygen 40 White Blood Count 10.9 Red Blood Count 2.59 Hemoglobin 7.6 Hematocrit 22.7 Mean Corpuscular Volume 87.8 Mean Corpuscular Hemoglobin 29.5 Mean Corpuscular Hemoglobin 33.6 Concent Red Cell Distribution Width 16.9 Platelet Count 101 Mean Platelet Volume 8.8 Sodium Level 150 Potassium Level 3.6 Chloride Level 116 Carbon Dioxide Level 26.7 Anion Gap 7 Blood Urea Nitrogen 96 Creatinine 1.53 Estimat Glomerular Filtration 46 Rate Random Glucose 131 Calcium Level 7.9 Date/Time Procedure Status Source Growth 04/04/17 11:45 Gram Stain - Final Resulted Bronchial Washings Bronchial 04/04/17 11:45 Bronchial Culture Resulted Bronchial Washings Bronchial Pending Imaging Last Impressions Chest X-Ray 04/04/17 0915 Signed Impressions: Service Date/Time: Tuesday, April 04, 2017 09:13 - CONCLUSION: Worsening left lung base airspace process otherwise not significantly changed. Indu Cunningham MD Brain MRI 04/03/17 0000 Signed Impressions: Service Date/Time: Monday, April 03, 2017 14:38 - CONCLUSION: 1. Bilateral subdural fluid collections likely hygromas although there is some minimal acute hemorrhage in the left subdural fluid collection measuring 10 mm on the left and 6 mm on the right. No midline shift or mass effect. Noncontrast CT brain recommended. 2. Minimal nonspecific white matter changes. 3. No acute infarction. Medhat Cevallos MD Upper Extremity Ultrasound 03/29/17 0000 Signed Impressions: Service Date/Time: Wednesday, March 29, 2017 11:02 - CONCLUSION: Small amount of thrombus in the left cephalic vein and the left basilic vein. Right upper extremity is unremarkable . Valerio Jerome MD Lower Extremity Ultrasound 03/29/17 0000 Signed Impressions: Service Date/Time: Wednesday, March 29, 2017 10:40 - CONCLUSION: Normal examination. Valerio Jerome MD Abdomen Ultrasound 03/22/172122 Signed Impressions: Service Date/Time: Wednesday, March 22, 2017 08:14 - CONCLUSION: 1. Mild diffusely heterogeneous transplant liver echotexture with small amount of volume loss. No definitive evidence for portal venous gas or significant pneumobilia by ultrasound exam. However, examination was not specifically tailored for extended interrogation of the hepatic vasculature. 2. No sonographic evidence for intra-or extrahepatic ductal dilatation. 3. Trace ascites and small bilateral pleural effusions. Everton Cruz MD Chest CT 03/22/17 0000 Signed Impressions: Service Date/Time: Wednesday, March 22, 2017 15:37 - CONCLUSION: There is ascites and bilateral pleural effusion and worsening left lung consolidation. Indu Cunningham MD Abdomen/Pelvis CT 03/22/17 0000 Signed Impressions: Service Date/Time: Wednesday, March 22, 2017 15:40 - CONCLUSION: Increase in ascites and mesenteric congestion since the prior exam. Indu Cunningham MD Abdomen X-Ray 03/22/17 0000 Signed Impressions: Service Date/Time: Wednesday, March 22, 2017 07:00 - CONCLUSION: No findings characteristic of perforation. Nasogastric tube coiled within the fundus of the stomach. Emilio Snow MD Head CT 03/21/17 0000 Signed Impressions: Service Date/Time: Tuesday, March 21, 2017 23:27 - CONCLUSION: Normal examination. Valerio Jerome MD Physical Exam HEENT: Normocephalic; atraumatic CHEST: Diminished at left, OETT to vent. CARDIAC: RRR ABDOMEN: Soft, nondistended, nontender; hepatosplenomegaly; bowel sounds faint EXTREMITIES: 2 + edema in upper extremities SKIN: Generalized pallor LICENSED APPRAISER: Sedated on vent (Shelton Wolfe) Assessment and Plan Plan ASSESSMENT: - CDiff colitis, Epid 027 (+). Pt on ampicillin for acinetobacter baumannii/ Haemol bacteremia. ID following. Flexiseal with dark green stool present. On Oral vanco and flagyl. 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 He has not been seen at the [facility] and 5-10 years secondary to financial issues. Unfortunately, he cannot make an appointment to follow up at [facility] until he makes a payment of $8,000 for an outstanding balance. The tells me charles there is no way she can make this payment and that she will have to "deal with that later." We did refer patient to [facility], but patient was declined secondary to having his transplant done at [facility] and they said that he would need to follow up at [facility]. 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 Similar histologic findings can also be seen in plasma cell rich rejection. Correlation with recent BILLY, ASMA, and serum IgG level is recommended. Typical features of acute cellular rejection are not seen. There is no evidence of chronic biliary tract disease or active steatohepatitis. Labs from January 28, 2017 revealed IgG total 3887, IgG1 2359, IgG3 57, IgG4 > 300.00. BILLY negative, ASMA negative. MELD 16. Spoke to Tiana Lo at [facility] to update on patient's condition and to see if he would able to be seen at their facility ([facility] has declined patient per our outpatient referral records). Per Tiana Lo, patient will not be able to be seen or make recommendations at [facility] until they have contacted Central Appointment Scheduling and settles outstanding balance. They cannot make recommendations , as they have not seen this patient since 2007 and would need to start the whole process over again and cannot do this until the outstanding balance is settled. LFTs remain stable with T. Bili 0.4, AST 29, ALT 19, ALk Phosph 81. - Anemia. Pt had drop in hgb 7/20 from 7.8/23.3----> 6.3/18.8. S/P 2 unit of prbc. 8/23.9 today. There was is no obvious blood loss. Tolerating TF. Flexiseal with dark green liquid stool. Will continue PPI and monitor for any signs of active bleeding. - Coagulopathy. Stable - Sepsis with multisystem failure. Pt with bandemia, UTI/PNA. Bronchial washings with no growth 48 hours, mycobacterial culture pending, fungal culture pending urine negative for legionella and streptococcus, urine cx (-), Bcx Acinetobacter Baumannii/Haemol, rpt with no growth. WBC 10.1. ID following, on Ampicillicin. Oral vanco, flagyl - Resp. Failure, HCAP. Abx, Nebs. Vent per CCM. Had acute onset of hypoxemia and respiratory distress this morning. CXR showed left-sided mucous plugging. Had bronchoscopy with evidence of significant LLL mucous plugging. Currently sedated on vent. - RAN with electrolyte abnormalities. Renal following, likely acute injury secondary to acute tubular necrosis r/t hypotension. Avoid nephrotoxins. Creat improved 1.66 - AMS. EEG with diffusely low recording, could be medication effect as the patient was on fentanyl. No hemisphere asymmetries are noted. No epileptiform or seizure activity seen. Currently sedated on vent. - Hx HTN, hyperlipidemia, BPH, per attending. 7-24-17 - H&H low but stable. no obvious bleeding reported, Flexiseal with dark green liquid stool. LFTs have been normal PLAN: - TF as tolerated - Cont. Oral Vanco - Cont. Prograf - Cont. Xifaxan - Cont. PPI - Cont. to hold lactulose for diarrhea - Abx per ID recommendations - Monitor labs - Monitor stool output - Notify GI of any active bleeding - Supportive care - CCM following - ID following - Further recommendations to follow based on results of above - Of note, patient has been declined by [facility] secondary to having original transplant at [facility] - [facility] will not see patient or make recommendations until they have contacted the Central Appointment Office to resolve outstanding balance- aware. Patient seen and examined by Dr. Barnes and myself (Shelton Wolfe) Physician Comments Patient seen and examined Agree with above Continue with current supportive care Monitor labs (Pasha Barnes MD) Shelton Wolfe Apr 05, 2017 13:43 Pasha Barnes MD Apr 05, 2017 22:45
--- NOTE | 2017-04-05 15:28 | HHI.NPPN ---
Subjective History of Present Illness 67-year-old male with past medical history of liver transplant in 2001, hypertension, atrial fibrillation, hyperlipidemia, diabetes mellitus, history of atrial fibrillation with ablation, chronic kidney disease was admitted on March 19 because of a lethargy and decreased responsiveness. I was called due to decrease urine out put and increasing Creatinine. Additional Remarks Patient remain on the vent. and now sedated. Objective Data Data 04/04/17 04/05/17 19:00 07:00 Intake Total 820 ml 2290 ml Output Total 700 ml 2705.0 ml Balance 120 ml -415.0 ml IV Total 320 ml 599 ml Tube Feeding 0 ml 701 ml Other 500 ml 990 ml Output Urine Total 700 ml 1825 ml Stool Total 0 ml 880 ml Tube Feeding Residual Discard 0 ml Vital Signs Date Time Temp Pulse Resp B/P Pulse Ox O2 Delivery O2 Flow Rate FiO2 04/05/17 14:00 65 04/05/17 14:00 65 04/05/17 12:00 40 04/05/17 12:00 73 04/05/17 12:00 98.2 73 151/77 93 163/67 04/05/17 11:10 95 40 04/05/17 11:00 40 04/05/17 10:00 74 04/05/17 08:12 100 40 04/05/17 08:00 98.3 74 99/58 100 104/48 04/05/17 08:00 74 04/05/17 08:00 40 04/05/17 07:00 78 97/55 100 98/48 04/05/17 06:00 88 04/05/17 06:00 88 144/83 99 158/67 04/05/17 05:01 83 135/74 100 158/72 04/05/17 05:00 83 158/71 100 04/05/17 04:23 99 40 04/05/17 04:00 75 124/63 97 122/54 04/05/17 04:00 97.5 75 19 124/63 97 122/54 04/05/17 04:00 40 04/05/17 04:00 75 04/05/17 03:00 74 130/74 98 137/59 04/05/17 02:00 70 122/70 99 118/54 04/05/17 02:00 70 04/05/17 01:19 98 40 04/05/17 01:00 72 122/62 98 115/53 04/05/17 00:21 72 100/56 98 86/46 04/05/17 00:00 97.9 78 19 137/73 98 131/61 04/05/17 00:00 78 04/05/17 00:00 78 137/73 98 131/61 04/05/17 00:00 78 137/73 98 131/61 04/05/17 00:00 40 04/04/17 23:00 75 113/66 93 101/49 04/04/17 22:56 96 40 04/04/17 22:00 72 04/04/17 22:00 72 114/68 99 107/53 04/04/17 21:00 77 131/72 97 125/58 04/04/17 20:00 74 117/69 99 117/57 04/04/17 20:00 74 04/04/17 20:00 40 04/04/17 20:00 98.5 74 18 117/69 99 117/57 04/04/17 19:37 99 40 04/04/17 18:00 72 04/04/17 16:00 100 04/04/17 16:00 40 04/04/17 16:00 97.3 62 25 150/77 100 149/69 -: 04/05/17 0335 04/05/17 0335 Physical Exam General Appearance Remarks Intubated and sedated. Eyes Eye Exam: Pupils Equal Throat Throat Exam: Oral Mucosa [place] & Moist Pulmonary Resp Exam: Crackles, Rhonchi, Decreased Bases, Diminished Breath Sounds Cardiology CV Exam: Regular, Normal Sinus Rhythm Gastrointestinal/Abdomen GI Exam: Soft, Non-Tender, Bowel Sounds Present Extremeties Extremities Exam: Trace Edema Neurologic Neuro Exam: Sedated Assessment/Plan Assessment Summary: RAN/Acute Renal Failure, CKD Stage III Problem List: (1) Atrial fibrillation with RVR (2) Respiratory failure (3) Shortness of breath (4) PNA (pneumonia) (5) CHF (congestive heart failure) (6) Anemia (7) Acute on chronic kidney disease, stage 3 (8) RAN (acute kidney injury) Plan Patient has chronic kidney disease and develop RAN. Patient has good urine out put. Continue gentle hydration. Continue antibiotics. Weaning as per CCM. Avoid Nephrotoxins. Creatinine continue to improve. Na. is slightly better. On PO Vanco for C. Difficile. Failed weaning today. On GT feeding. Problem Qualifiers (1) Respiratory failure: Qualified Code: J96.01 - Acute respiratory failure with hypoxia Sunil Maya MD Apr 05, 2017 15:28
[2017-04-05] MEDS: fentaNYL DRIP 250 ML IV SCH (17:28)
[2017-04-05] MEDS ORDERED: DEXMEDETOMIDINE INJ 200 MCG in SODIUM CHLORIDE 0.9% INJ 50 ML IV SCH (20:00)
--- NOTE | 2017-04-05 20:04 | HHI.CCPN ---
Subjective Remarks/Hospital Course 67-year-old male with past medical history of primary sclerosing cholangitis with orthotopic liver transplant at [facility] in 2001, hypertension, atrial fibrillation status post ablation, hyperlipidemia, diabetes mellitus who presents to [facility] emergency department with altered mental status, fever, urinary incontinence. He was brought in by his . She states that this morning he was doing well and participated with home health physical therapy. When his returned home this evening she found him lethargic and minimally responsive. He had a cup full of mucus and when she inquired about it he stated that he had vomited. He refused ambulance transport. He had a temperature of 103 upon arrival to the emergency department. His states he told ED staff that he had experienced dysuria starting today. He has h/o BPH and UTI in the past. He has chronic low back pain. He denies headache or neck stiffness. His states he returned to his baseline mental status while in the ED and was conversant with her. He had no focal weakness and no witnessed seizure. His ED workup demonstrated U/a with moderate bacteria, 13 WBC, 2 RBC. White blood cell count was 14 with 9% bands, hemoglobin 10.5, platelets 135, AST 45, ALT 31, alkaline phosphatase 172, PT 12.3, INR 1.1 . Creatinine was 2.32 (baseline about 1.6-2), BUN 73, sodium 132 , potassium 5.2, bicarbonate 17 His initial lactic acid was 1.6. He was given Zosyn and 3 L NS bolus and admitted to the hospitalist service. He was complaining of chronic back pain and was anxious/agitated so was given Ativan 0.5 mg IV (chronically on Xanax). ED physician Dr. Orozco was called in because he became unresponsive and he was hypopneic with inadequate respirations. Sats were in the 60s. He complained to his that he could not see. He was hypotensive in 70s and post-intubation BP dropped to 60s/40s and [facility] was called. CVL was placed and he was started on levophed and vasopressin. He is awake on vent and answering questions yes/no. 03/22: patient in refractory distributive shock. I evaluated the patient multiple times throughout the day beginning around 0600 and at frequent intervals. Patient remains acidotic on maximal vasopressor therapy. I had discussions with Dr. Anaya with ID, cultures are growing out Acinetobacter. abx changed to tobra, vanc, meropenem, levaquin, unasyn. continued ivf resuscitation throughout the day guided by frequent IVC and cardiac echo. formal echo with grossly preserved LV function and mild RV dysfunction. but IVC continued to be collapsable. acute renal failure worsening and acidosis severe. started on bicarb drip. repeat CT abd/pelvis performed. I personally transported patient down to CT scanner given how severely unstable the patient was. Discussed with general surgery and interval CT scan is necessary to eval for intra-abdominal source of sepsis. interval CT without change. most likely Acinetobacter pneumonia with overwhelming septic shock. discussed with at length multiple times today regarding his life-threatening infection and his high risk of mortality. 03/23: vasopressors weaning down. patient waking up, following commands. still persistently acidotic, in multiorgan failure. renal dysfunction persists and oliguric. acinetobacter sensitivities not resulted. 03/24: off vasopressors. clinically beginning to improve. Acinetobacter is pansensitive. oliguria persists, but Cr stable and no current indication for acute HD. 03/25: went into afib RVR yesterday. given mgso4 and started aggressive forced diuresis with lasix drip at 20mg/hr. converted spontaneously back to NSR after only about 2 hours. This AM net -2.4L/24h. continues to make 200cc/hr uop. hemodynamics stable. very low-dose norepinephrine requirement. Cr stable, though RAN persists. 03/26: remains in afib, intermittently RVR. on diltiazem drip. Cr worse. uop declining. appears intravascularly dry. stopped lasix drip. wbc uptrending, but still appears nontoxic. 03/27 Afebrile, WBC 16.8 from 22k. Afib converted to sinus rhythm in 50s, discontinuing cardizem 5 mg/hr that is running. Creatinine steady at 2.75 ( previoulsy 2.8 <--2.81). UOP was in 70s this morning, now down to 50 cc/hr and 30 cc/hr. Positive fluid balance last 24 hours. Now CI 2.1 SVV 7, SVI 33. Glucose poorly controlled in 200s to 300s despite high does insulin sliding scale. Off vasopressors since this morning. 03/28 C diff positive. Started vancomycin po overnight. Tolerating tube feeds. A fib RVR in 130s this morning and initially hypotensive when went into Afib and levophed started but quickly weaned off. Restarting cardizem drip. BUN increased but creatinine relatively unchanged. UOP better with lasix yesterday and now edema slightly improved. Wean hydrocortisone. Glucose better after initiation of detemir but still 210. 03/29: Afebrile. Intermittently A. fib with RVR currently normal sinus rhythm. -4000 cc urine output has 24 hours. Arousable and intermittently following commands. 03/30: Afebrile. Intermittently in normal sinus rhythm/A. fib with RVR. Adequate prep. Increasing BUN and creatinine noted. Arousable on the ventilator and will follow commands. Tolerate CPAP 1 hour so far today. Positive BM. Increased residuals from tube feeding noted ~ 400 cc 03/31: Currently afebrile. On PSV trial since 08:40. Tolerating tube feeds at goal rate. Back in A. fib with RVR cards drip at 10 mg an hour. Started on normal saline for gentle hydration. Arousable and following commands. 04/01: Currently afebrile. On PSV trials. Tolerating tube feeds at goal. requesting palliative care consult for goals of care. She does not desire trach at this time. 04/02: Afebrile. On ventilator overnight. Received PRBCs overnight and IV fluids adjusted due to hemoglobin 6.3 and sodium 152. No active bleeding noted. Arousable the ventilator will follow commands. Tolerating PSV trials 4 hours yesterday. 04/03: afebrile, awake, alert this morning. on PSV. sodium still 153 despite free water replacement. BUN still significantly elevated. hgb stable at 7. no active bleeding. Cr downtrending slightly. Subjective: 04/04: yesterday passed SBT, but traveled to MRI and was fatigued at the end of the day. This morning, had acute onset of hypoxemia and respiratory distress. CXR with evidence of left-sided mucous plugging. Obtained bronch with evidence of significant LLL mucous plugging. repeat BAL from LLL sent. FK level downtrending to 4.2 on 04/03. 04/05: The patient remain on CPAP trials today on Precedex infusion successfully for several hours. Tentative plans for a trial of extubation with discussion with the near future in conjunction with palliative care team, regarding goals of care. Objective Vital Signs Date Time Temp Pulse Resp B/P Pulse Ox O2 Delivery O2 Flow Rate FiO2 04/05/17 18:00 66 04/05/17 16:34 100 40 04/05/17 16:00 98.5 153/78 161/65 04/05/17 04:00 19 04/01/17 20:48 Ventilator Intake and Output 04/04/17 04/04/17 04/05/17 08:00 16:00 00:00 Intake Total 1209 ml 820 ml 865 ml Output Total 1050 ml 700 ml 1210.0 ml Balance 159 ml 120 ml -345.0 ml Result Diagram: 04/05/175 04/05/17 033 Imaging Last Impressions Chest X-Ray 04/02/17 0600 Signed Impressions: Service Date/Time: Sunday, April 02, 2017 03:55 - CONCLUSION: 1. Bilateral lower lobe atelectasis versus pneumonia. Bilateral effusions There has been no significant change when compared to the prior exam. Arpit Contreras MD Upper Extremity Ultrasound 03/29/17 0000 Signed Impressions: Service Date/Time: Wednesday, March 29, 2017 11:02 - CONCLUSION: Small amount of thrombus in the left cephalic vein and the left basilic vein. Right upper extremity is unremarkable . Valerio Jerome MD Lower Extremity Ultrasound 03/29/17 0000 Signed Impressions: Service Date/Time: Wednesday, March 29, 2017 10:40 - CONCLUSION: Normal examination. Valerio Jerome MD Abdomen Ultrasound 03/22/172122 Signed Impressions: Service Date/Time: Wednesday, March 22, 2017 08:14 - CONCLUSION: 1. Mild diffusely heterogeneous transplant liver echotexture with small amount of volume loss. No definitive evidence for portal venous gas or significant pneumobilia by ultrasound exam. However, examination was not specifically tailored for extended interrogation of the hepatic vasculature. 2. No sonographic evidence for intra-or extrahepatic ductal dilatation. 3. Trace ascites and small bilateral pleural effusions. Everton Cruz MD Chest CT 03/22/17 0000 Signed Impressions: Service Date/Time: Wednesday, March 22, 2017 15:37 - CONCLUSION: There is ascites and bilateral pleural effusion and worsening left lung consolidation. Indu Cunningham MD Abdomen/Pelvis CT 03/22/17 0000 Signed Impressions: Service Date/Time: Wednesday, March 22, 2017 15:40 - CONCLUSION: Increase in ascites and mesenteric congestion since the prior exam. Indu Cunningham MD Abdomen X-Ray 03/22/17 0000 Signed Impressions: Service Date/Time: Wednesday, March 22, 2017 07:00 - CONCLUSION: No findings characteristic of perforation. Nasogastric tube coiled within the fundus of the stomach. Emilio Snow MD Head CT 03/21/17 0000 Signed Impressions: Service Date/Time: Tuesday, March 21, 2017 23:27 - CONCLUSION: Normal examination. Valerio Jerome MD Objective Remarks GENERAL: Chronically ill-appearing 67-year-old male, critically ill, lying in bed. SKIN: Warm and dry. Stage I sacral decubitus ulcer stable HEAD: Atraumatic. Normocephalic. EYES: Pupils equal and round, 2 mm and reactive bilaterally. No scleral icterus. No injection or drainage. ENT: Mucous membranes pink and moist. Oropharynx without erythema or exits. NECK: Trachea midline. No apparent JVD. CARDIOVASCULAR: RRR. sinus by tele this morning. RESPIRATORY: Normal chest excursion. Diminished breath sounds in all basis GASTROINTESTINAL: Abdomen overall soft, non-tender, nondistended. Dignishield in place with + stool in tubing : Mcpherson in place with light yellow urine output. Positive mild to moderate scrotal edema MUSCULOSKELETAL: There is muscular atrophy involving bilateral hands. Dependent edema and elbows of bilateral upper extremities. There is trace pedal edema. NEUROLOGICAL: Eyes open and makes eye contact. Nods and shakes head to simple question. GCS 11 T , was extremities 4, follows commands Date of Insertion: Mar 29, 2017 Line: Central Venous Catheter Side: Right Location: Subclavian A/P Assessment and Plan Assessment: 67yM s/p prior OLTx in 2001 now admitted with Acinetobacter septic shock and virulent strain C. Difficile colitis, with persistent multiorgan system dysfunction despite long aggressive therapy. Some organs have slight improvement, although overall prognosis is guarded. New acute hypoxic respiratory failure likely secondary to mucous plugging. Free water replacement. Weaning trials initiated, with tentative plan for trial of extubation in coordination with family. NEURO/PSYCH: Acute Vision change- resolved. Acute metabolic encephalopathy- resolving. Peripheral neuropathy Chronic benzodiazepine use Chronic narcotic use continue low-dose propofol and fentanyl for sedation and vent/ett tolerance. Goal of RASS 0 Daily sedation vacation Per prior notes, patient reported to that he could not see before intubation. ?secondary to profound hypotension and hypoperfusion. Pupils reactive, nodding head peripherally to 1-[address] brain 03/21 revealed no acute intracranial findings MRI brain EEG 03/22: severe slowing, no epileptiform activity Hold gabapentin 300 mg by mouth 3 times a day. Hold alprazolam 0.5 mg every 8 hours when necessary Oxycodone liquid 5 mg every 4 hours when necessary pain RESP: Acute hypoxic and hypercarbic respiratory failure- acutely worsening this morning. History of tobacco abuse Acute healthcare associated left lower lobe pneumonia PRVC 550/18/12/100% s/p bronch 04/04 urgently with LLL mucous plugging with thick purulent secretions. continue elevated PEEP at 12. could consider repeat SBT this afternoon if he clinically improves. Ventilator bundle Albuterol/ipratropium nebulizers every 6 hours. Albuterol nebulizers every [address] chest 03/21 - dense consolidation of LLL with air bronchograms. Bronchoscopy with BAL lingula 03/22 - no growth to date SBT as clinically indicated as above CXR 04/02 reveals bilateral infiltrates and bilateral pleural effusions. CV: Septic shock with multi system organ failure- resolved History of atrial fibrillation status post ablation currently intermittent A fib RVR now in normal sinus rhythm History of hypertension Hyperlipidemia Evaluated by Dr. Lovell who has recommended maintenance Cardizem to 90 q6. Initial troponin 0.03, mild increase to 0.06 is likely related to sepsis. Echo from 01/23/17 - +LVH, EF 60-65%. No regional wall motion abnormalities. Left atrial dilation. Echo 03/22- preserved LV function, mild RV dysfunction. collapsable IVC. Hold medications amlodipine 10 mg daily for hypertension on vasopressors, atorvastatin 40 mg daily for dyslipidemia with elevated LFTs, spironolactone 25 mg daily with acute kidney injury. Not ideal case for resumption for sotalol 80 mg twice a day/home medication Received IV Lasix 40 mg IV twice a day previously. This currently on hold due to elevated BUN/creatinine. 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 difficile Hypoalbuminemia Patient currently Glucerna 1.5@60 cc an hour/currently at goal Metoprolol 40 mg IV twice a day Patient has been followed by Dr. Mallory as outpatient. He has not been able to follow closely with [facility] due to financial reasons. states he has [place]f levels done at [place] and [facility] [place] [facility]. She states he has been referred to [facility] for possible repeat transplant due to plasma cell hepatitis but has not had followup appointment yet. Per GI notes, patient was refused for liver transplant at [facility] due to prior association with [place]. Prograf level currently downtrending to 4.7. Increase FK dose to 2mg po BID, recheck daily levels at 08:30am. CT abd/pelvis 03/21non-contrast - pneumobilia, fecal impaction, no free air or fluid. repeat CT abd pelvis 03/22: no change. Patient known to Dr. Mallory. GI has signed off for now, reconsult if needed. On Xifaxan 550 twice a day and lactulose 30 cc twice a day. UROLOGY: BPH Hold Proscar 5 milligrams daily Flomax 0.4 mg daily in light of hypotension. Resume when clinically indicated Maintain Mcpherson catheter FEN/RENAL: Acute on chronic kidney injury- persistent. Acute Uremia Hypernatremia Hypokalemia Hyperphosphatemia Monitor intake and output hourly. Monitor electrolytes and replace as indicated. Urine eosinophils negative 03/24. Avoid nephrotoxic drugs Appreciate nephrology consultation. increase free water to 300cc q4h. continue d5w @ 50cc/hr. PhosLo 667 mg by mouth 3 times a day phosphorus binder. recheck daily electrolytes, including phos. ID: Septic shock-resolved LLL HCAP- Acinetobacterbaummini bacteremia C difficile diarrhea d/c Unasyn today. Vancomycin 500 po qid 03/29 and IV Flagyl 500 mg every 8 hours started for C. difficile 027 positive ID following: Dr. Anaya. HEME: Leukocytosis- resolved. Chronic normocytic anemia Acute on chronic Thrombocytopenia Left cephalic/basilic superficial thrombus Monitor CBC daily monitor trends. Preliminary bilateral upper extremity Dopplers revealed left cephalic/basilic superficial thrombus. Treated with DVT prophylaxis does not meet transfusion triggers at this time. ENDO: Diabetes mellitus Hyperglycemia Insulin Detemir 15 units subcutaneous q12. Currently on sliding scale insulin/high regimen every 4 hours s/p stress dose steroids. PROPH: SCDs. Continue heparin 5000 units subcutaneous twice a day Pantoprazole 40 mg IV twice a day ACCESS: Right subclavian central venous line placed 03/29 # 7. Left radial art line 03/29 #7 Dispo: remain in ICU. This patient remains critically ill with one or more organ systems which are or may become a threat to life. I have spent in excess of 30 minutes discontinuously in the care and management of this patient. This time is exclusive of procedures, and includes, but is not limited to, evaluation of the patient, review of the medical record, discussions with family, consultants, nursing staff, or respiratory therapy, and documentation in the medical record. Physician Blaire Kemp MD Apr 05, 2017 20:03
[2017-04-05] MEDS: DEXMEDETOMIDINE INJ 1,000 MCG in SODIUM CHLOR 0.9% 250 ML INJ 240 ML IV SCH (20:47)
[2017-04-06] VITALS (23 sets, daily range): BP systolic 126–185; BP diastolic 54–91; PULSE 63–84; RESP 18; TEMP 98.5–99.5; O2SAT 88–100
[2017-04-06] MEDS: DILTIAZEM HCL 90 MG TAB PO SCH ×4 (01:39→18:01)
[2017-04-06] MEDS: CHLORHEXIDINE GLUCONATE 2 % 1 PACK (2 CLOTHS) TOP SCH (04:00)
[2017-04-06] MEDS: FREE WATER G-TUBE SCH ×6 (04:00→20:00)
[2017-04-06] MEDS: HIGH DOSE INSULIN NOVOLIN REGULAR SUPPLEMENTAL SCALE SQ SCH ×6 (04:00→20:00)
--- NOTE | 2017-04-06 06:04 | RADRPT ---
EXAM DATE/TIME: 04/06/2017 03:55 [place] COMPARISON: CHEST SINGLE AP, April 04, 2017, 11:31. INDICATIONS : Shortness of breath. MEDICAL HISTORY : Hypertension. Cirrhosis. Diabetes mellitus type II. Hepatitis B and C. SURGICAL HISTORY : Liver transplant. ENCOUNTER: Subsequent ACUITY: 2 weeks PAIN SCORE: 0/10 LOCATION: Bilateral chest FINDINGS: Portable AP view of the chest demonstrates cardiac silhouette size at the upper limits for normal. ET T, nasogastric tube, and right subclavian central line remain present. There is bibasilar airspace co nsolidation with small pleural based opacities. No pneumothorax is visualized. CONCLUSION: 1. Bibasilar airspace consolidation, increased in the left lung base. 2. Stable small bilateral pleural effusions. Vin Montero MD on April 06, 2017 at 6:01 Board Certified Radiologist. This report was verified electronically.
[2017-04-06] MEDS: CHLORHEXIDINE 0.12% (ORAL KIT) 15 ML CUP MT SCH ×2 (08:00→21:15)
[2017-04-06] MEDS: CHOLECALCIFEROL (VIT D3) 1000 UNIT TAB PO SCH ×2 (08:16→21:13)
[2017-04-06] MEDS: RIFAXIMIN 550 MG TAB OG-TUBE SCH ×2 (08:16→21:14)
[2017-04-06] MEDS: FOLIC ACID 1 MG TAB PO SCH ×2 (08:16→21:14)
[2017-04-06] MEDS: PANTOPRAZOLE SODIUM 40 MG VIAL IV SCH ×2 (08:17→21:13)
[2017-04-06] MEDS: VANCOMYCIN 500 MG VIAL (FOR ORAL USE ONLY) PO SCH ×4 (08:17→21:30)
[2017-04-06] MEDS: TACROLIMUS 1 MG CAP PO SCH ×2 (08:17→18:01)
[2017-04-06 08:19] LABS: MEAN CELL VOLUME 87.3 FL (80.0-100.0); MEAN CORPUSCULAR HGB CONC 33.3 % (32.0-36.0); PLATELET COUNT 90 TH/MM3 (150-450); RED BLOOD COUNT 2.37 MIL/MM3 (4.50-5.90); RED CELL DISTRIBUTION WIDTH 16.9 % (11.6-17.2); WHITE BLOOD COUNT 8.2 TH/MM3 (4.0-11.0)
[2017-04-06] MEDS: SODIUM CHLORIDE 0.9% FLUSH 10 ML FLUSH IV FLUSH SCH ×2 (08:19→21:15)
[2017-04-06] MEDS: HEPARIN SODIUM - SQ 10,000 UNITS/ML VIAL SQ SCH ×2 (08:20→21:14)
[2017-04-06] MEDS: CALCIUM ACETATE 667 MG CAP PO SCH ×3 (08:20→18:01)
[2017-04-06] MEDS: DOCUSATE SODIUM 50 MG/SENNA 8.6 MG TAB PO SCH ×2 (08:20→21:14)
[2017-04-06] MEDS: INSULIN DETEMIR 100 UNITS/ML VIAL SQ SCH ×2 (08:21→21:00)
[2017-04-06 08:37] LABS: POTASSIUM 3.8 MEQ/L (3.5-5.1)
[2017-04-06 08:38] LABS: BICARBONATE 26.6 MEQ/L (21.0-32.0)
[2017-04-06 08:40] LABS: HEMATOCRIT 20.7 % (39.0-51.0); REVIEW FLAG FINAL
[2017-04-06] MEDS: fentaNYL DRIP 250 ML IV SCH ×2 (09:48→18:01)
--- NOTE | 2017-04-06 11:15 | HHI.HCPN ---
Reason for visit a. To assist with evaluation and management of symptoms including: shortness of breath, anxiety , pain b. To assist medical decision maker(s) with: better understanding of current medical conditions; weighing benefits/burdens of medical treatment options; making medical treatment decisions. (Shannen See) Subjective/Interval History patient seen today to follow up with regarding goals of treatment. d/w primary nurse, ssrs developer- again did not tolerate CPAP trial for medical extubation despite precedex, fentanyl, became agitated, shaking head side to side. bronch specimen from 04/04 = normal resp james. H&H cont downtrending 6.9/ 20.7, ordered for transfusion unit of RBC today. Platelets downtrending 90. BUN 74/creatinine 1.43, improving. UOP adequate. CXR = continued bibasilar airspace consolidation, increased LL, small bilateral effusions. Seen initially in room no family present, arrives just after my arrival. Spoke w her at bedside, update on CPAP weaning attempts, pt not at this time ready for medical extubation, that may be indicated for trach if cont to not tolerate and goals are aggressive. She is appropriately tearful, indicates that pt does not want to suffer and that over the past weekend he was adamant to have the ETT out. She does not think he would want a trach, but she is also struggling to make that decision without his input. She has been hopeful he could be awakened enough to again nod in participation. Gently explore that he has not tolerated lightening of sedation and we may not get him to participate again, but that she knows him and his wishes. Gently explore options of continued aggressive tx vs transition to comfort focus. She requests to discuss further with ssrs developer-- notified Dr Castrejon, Dr Castrejon in to speak w . . (Shannen See) Advance Directives Living Will: Never completed Health Care Surrogate: Never completed Durable Power of Special Education Teaching Assistant: Never completed (Shannen See) Advance Directive Specifics Health Care Surrogate(s): No known written advance directives per family report. According to [place] statutes, health care proxy decision makers also patient's spouse. . (Shannen eSe) Objective Vital Signs Date Time Temp Pulse Resp B/P Pulse Ox O2 Delivery O2 Flow Rate FiO2 04/06/17 10:00 40 04/06/17 10:00 77 04/06/17 09:33 93 40 04/06/17 09:09 40 04/06/17 09:09 100 40 04/06/17 08:59 100 40 04/06/17 08:00 40 04/06/17 08:00 69 04/06/17 08:00 99.5 69 148/76 100 163/67 04/06/17 06:00 80 04/06/17 05:53 97 40 04/06/17 04:00 98.7 75 133/72 92 134/56 04/06/17 04:00 75 04/06/17 04:00 40 04/06/17 03:28 99 40 04/06/17 02:00 63 04/06/17 00:00 63 04/06/17 00:00 99.0 63 126/72 98 141/56 04/06/17 00:00 40 04/05/17 22:31 97 40 04/05/17 22:30 40 04/05/17 22:00 64 04/05/17 20:00 98.8 62 129/70 100 138/56 04/05/17 20:00 62 04/05/17 20:00 40 04/05/17 18:00 66 04/05/17 16:34 100 40 04/05/17 16:00 40 04/05/17 16:00 63 04/05/17 16:00 98.5 63 153/78 99 161/65 04/05/17 14:00 65 04/05/17 14:00 65 04/05/17 12:00 40 04/05/17 12:00 73 04/05/17 12:00 98.2 73 151/77 93 163/67 04/05/17 11:10 95 40 04/05/17 11:00 40 Intake & Output 04/06/17 04/06/17 07:00 19:00 Intake Total 2435 ml Output Total 1650 ml Balance 785 ml IV Total 802 ml Tube Feeding 733 ml Other 900 ml Output Urine Total 1350 ml Stool Total 300 ml Physical Exam CONSTITUTIONAL/GENERAL: This is an adequately nourished patient, sedated on [facility] vent TUBES/LINES/DRAINS: ETT, NG left nare, right subclavian central line, left wrist arterial line, bilateral soft wrist restraints, Mcpherson, Dignishield rectal drain, SCDs and podus boots. CARDIOVASCULAR: regular rate, no murmur. +1-2+ edema BUE RESPIRATORY/CHEST: unlabored respirations via mech vent, course rhonchi throughout, diminished to bases GASTROINTESTINAL: Abdomen soft, non-tender, nondistended. Bowel sounds hypoactive. +NGT in place GENITOURINARY: Without palpable bladder distension. Mcpherson catheter in place. NEUROLOGICAL: sedated, non responsive to my exam. no eye opening PSYCHIATRIC: no apparent distress at time of exam. . (Shannen See) Diagnostic Tests Laboratory Laboratory Tests Test 04/04/17 04/04/17 04/04/17 04/05/17 04:25 08:55 16:16 03:35 White Blood Count 10.1 TH/MM3 10.9 TH/MM3 (4.0-11.0) (4.0-11.0) Red Blood Count 2.76 MIL/MM3 2.59 MIL/MM3 (4.50-5.90) (4.50-5.90) Hemoglobin 8.0 GM/DL 7.6 GM/DL (13.0-17.0) (13.0-17.0) Hematocrit 23.9 % 22.7 % (39.0-51.0) (39.0-51.0) Mean Corpuscular Volume 86.7 FL 87.8 FL (80.0-100.0) (80.0-100.0) Mean Corpuscular Hemoglobin 29.2 PG 29.5 PG (27.0-34.0) (27.0-34.0) Mean Corpuscular Hemoglobin 33.7 % 33.6 % Concent (32.0-36.0) (32.0-36.0) Red Cell Distribution Width 16.8 % 16.9 % (11.6-17.2) (11.6-17.2) Platelet Count 117 TH/MM3 101 TH/MM3 (150-450) (150-450) Mean Platelet Volume 7.8 FL 8.8 FL (7.0-11.0) (7.0-11.0) Neutrophils (%) (Auto) 81.5 % (16.0-70.0) Lymphocytes (%) (Auto) 11.5 % (9.0-44.0) Monocytes (%) (Auto) 4.7 % (0.0-8.0) Eosinophils (%) (Auto) 1.4 % (0.0-4.0) Basophils (%) (Auto) 0.9 % (0.0-2.0) Neutrophils # (Auto) 8.3 TH/MM3 (1.8-7.7) Lymphocytes # (Auto) 1.2 TH/MM3 (1.0-4.8) Monocytes # (Auto) 0.5 TH/MM3 (0-0.9) Eosinophils # (Auto) 0.1 TH/MM3 (0-0.4) Basophils # (Auto) 0.1 TH/MM3 (0-0.2) CBC Comment AUTO DIFF Differential Comment AUTO DIFF CONFIRMED Sodium Level 152 MEQ/L 150 MEQ/L (136-145) (136-145) Potassium Level 3.8 MEQ/L 3.6 MEQ/L (3.5-5.1) (3.5-5.1) Chloride Level 116 MEQ/L 116 MEQ/L (98-107) (98-107) Carbon Dioxide Level 26.9 MEQ/L 26.7 MEQ/L (21.0-32.0) (21.0-32.0) Anion Gap 9 MEQ/L (5-15) 7 MEQ/L (5-15) Blood Urea Nitrogen 112 MG/DL 96 MG/DL (7-18) (7-18) Creatinine 1.66 MG/DL 1.53 MG/DL (0.60-1.30) (0.60-1.30) Estimat Glomerular Filtration 42 ML/MIN (>89) 46 ML/MIN (>89) Rate Random Glucose 177 MG/DL 131 MG/DL (74-106) (74-106) Calcium Level 7.9 MG/DL 7.9 MG/DL (8.5-10.1) (8.5-10.1) Phosphorus Level 4.0 MG/DL (2.5-4.9) Magnesium Level 2.2 MG/DL (1.5-2.5) Blood Gas Puncture Site ART LINE ART LINE Blood Gas Patient Temperature 98.6 98.6 Blood Gas HCO3 23 mmol/L 24 mmol/L (22-26) (22-26) Blood Gas Base Excess -1.8 mmol/L -0.7 mmol/L (-2-2) (-2-2) Blood Gas Oxygen Saturation 76 % (90-100) 95 % (90-100) Arterial Blood pH 7.38 7.40 (7.380-7.420) (7.380-7.420) Arterial Blood Partial 39 mmHg (38-42) 39 mmHg (38-42) Pressure CO2 Arterial Blood Partial 45 mmHg 98 mmHg Pressure O2 (61-120) (61-120) Arterial Blood Oxygen Content 9.0 Vol % 10.9 Vol % (12.0-20.0) (12.0-20.0) Arterial Blood 1.5 % (0-4) 1.6 % (0-4) Carboxyhemoglobin Arterial Blood Methemoglobin 1.7 % (0-2) 1.3 % (0-2) Blood Gas Hemoglobin 8.3 G/DL 8.0 G/DL (12.0-16.0) (12.0-16.0) Oxygen Delivery Device VENTILATOR VENTILATOR Blood Gas Ventilator Setting CPAP+5/PS+10 CPAP+5/PS+5 Blood Gas Inspired Oxygen 40 % 40 % Test 04/05/17 04/06/17 10:30 07:28 Tacrolimus (Prograf) Level 6.0 NG/ML (5.0-20.0) White Blood Count 8.2 TH/MM3 (4.0-11.0) Red Blood Count 2.37 MIL/MM3 (4.50-5.90) Hemoglobin 6.9 GM/DL (13.0-17.0) Hematocrit 20.7 % (39.0-51.0) Mean Corpuscular Volume 87.3 FL (80.0-100.0) Mean Corpuscular Hemoglobin 29.0 PG (27.0-34.0) Mean Corpuscular Hemoglobin 33.3 % Concent (32.0-36.0) Red Cell Distribution Width 16.9 % (11.6-17.2) Platelet Count 90 TH/MM3 (150-450) Mean Platelet Volume 9.4 FL (7.0-11.0) Sodium Level 151 MEQ/L (136-145) Potassium Level 3.8 MEQ/L (3.5-5.1) Chloride Level 119 MEQ/L (98-107) Carbon Dioxide Level 26.6 MEQ/L (21.0-32.0) Anion Gap 5 MEQ/L (5-15) Blood Urea Nitrogen 74 MG/DL (7-18) Creatinine 1.43 MG/DL (0.60-1.30) Estimat Glomerular Filtration 49 ML/MIN (>89) Rate Random Glucose 120 MG/DL (74-106) Calcium Level 7.8 MG/DL (8.5-10.1) (MayiShannen) Result Diagram: 04/06/1728 04/06/17727 Microbiology Microbiology Date/Time Procedure Status Source Growth 04/04/17 11:45 Gram Stain - Final Complete Bronchial Washings Bronchial 04/04/17 11:45 Bronchial Culture - Final Complete Bronchial Washings Bronchial HEAVY GROWTH NORMAL RESPIRATORY JAMES Imaging Last Impressions Chest X-Ray 04/06/17 0600 Signed Impressions: Service Date/Time: Thursday, April 06, 2017 03:55 - CONCLUSION: 1. Bibasilar airspace consolidation, increased in the left lung base. 2. Stable small bilateral pleural effusions. Vin Montero MD Brain MRI 04/03/17 0000 Signed Impressions: Service Date/Time: Monday, April 03, 2017 14:38 - CONCLUSION: 1. Bilateral subdural fluid collections likely hygromas although there is some minimal acute hemorrhage in the left subdural fluid collection measuring 10 mm on the left and 6 mm on the right. No midline shift or mass effect. Noncontrast CT brain recommended. 2. Minimal nonspecific white matter changes. 3. No acute infarction. Medhat Cevallos MD Upper Extremity Ultrasound 03/29/17 0000 Signed Impressions: Service Date/Time: Wednesday, March 29, 2017 11:02 - CONCLUSION: Small amount of thrombus in the left cephalic vein and the left basilic vein. Right upper extremity is unremarkable . Valerio Jerome MD Lower Extremity Ultrasound 03/29/17 0000 Signed Impressions: Service Date/Time: Wednesday, March 29, 2017 10:40 - CONCLUSION: Normal examination. Valerio Jerome MD Abdomen Ultrasound 03/22/172122 Signed Impressions: Service Date/Time: Wednesday, March 22, 2017 08:14 - CONCLUSION: 1. Mild diffusely heterogeneous transplant liver echotexture with small amount of volume loss. No definitive evidence for portal venous gas or significant pneumobilia by ultrasound exam. However, examination was not specifically tailored for extended interrogation of the hepatic vasculature. 2. No sonographic evidence for intra-or extrahepatic ductal dilatation. 3. Trace ascites and small bilateral pleural effusions. Everton Cruz MD Chest CT 03/22/17 0000 Signed Impressions: Service Date/Time: Wednesday, March 22, 2017 15:37 - CONCLUSION: There is ascites and bilateral pleural effusion and worsening left lung consolidation. Indu Cunningham MD Abdomen/Pelvis CT 03/22/17 0000 Signed Impressions: Service Date/Time: Wednesday, March 22, 2017 15:40 - CONCLUSION: Increase in ascites and mesenteric congestion since the prior exam. Indu Cunningham MD Abdomen X-Ray 03/22/17 0000 Signed Impressions: Service Date/Time: Wednesday, March 22, 2017 07:00 - CONCLUSION: No findings characteristic of perforation. Nasogastric tube coiled within the fundus of the stomach. Emilio Snow MD Head CT 03/21/17 0000 Signed Impressions: Service Date/Time: Tuesday, March 21, 2017 23:27 - CONCLUSION: Normal examination. Valerio Jerome MD Procedures * 03/29/17 left subclavian central line placement * 03/22/17 fiber-optic bronchoscopy with bronchoalveolar lavage * 03/21/17 - left subclavian central line placement * 03/21/17 intubated . (Shannen See) Assessment and Plan Disease Oriented Problem List: (1) History of liver transplant (2) Sepsis (3) Urinary tract infection (4) Altered mental status, unspecified (5) CHF (congestive heart failure) (6) Atrial fibrillation with RVR (7) Acute on chronic kidney disease, stage 3 (8) PNA (pneumonia) Symptom Scale: (1) Anxiety 0-10 Scale: Unable to quantify (2) Shortness of breath 0-10 Scale: 0 (3) Debility 0-10 Scale: Unable to quantify (4) Pain 0-10 Scale: 0 Pertinent Non-Medical Issues Psychosocial: . 1 son, lives local. Spiritual: Evangelical gloria. Legal: In the absence of written advance directives, according to [place] statutes, health care proxy decision makers also patient's spouse. Ethical issues impacting care: no known concerns at this time. . Important Contacts * Connie St, spouse: [phone] . 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 Overall prognosis appears poor. Would be hospice appropriate if goals are comfort oriented. . Code Status: Full Code Plan * Decision Maker: no known written advance directives, according to [place] statutes, health care proxy decision makers also patient's spouse. * ALTERNATE CODE: intubation only. No cardiac compressions, shock or ACLS. * GOALS : 04/06 met w , again review continued aggressive tx vs transition to comfort focus. She had been hopeful he could participate in making his preferences known, however we have reviewed this may not be possible. She does not think he would want to proceed w trach, and feels he does not want to be on the ventilator for prolonged time, however is struggling to make a decision to transition to comfort * SYMPTOMS: anxiety: on Propofol, precedex. Intermittently tearful per per prev family reports, though not witnessed or reported today. Pain: secondary to bedbound status, acute hospitalization, tubes, general debility and weakness. On Fentanyl drip 100mch/hr. Denies pain during my visit. Dyspnea: Denies shortness of breath during my visit on mech vent, breathing comfortably, though nursing reports did NOT tolerate CPAP trial. Debility: has had frequent infections and hospitalizations over the past year with increased debility. Now in ICU for 16 days. * Palliative care number provided. * Palliative care will continue to follow throughout hospital course to assist with symptom management and clarification of goals as needed. . (Shannen See) Attestation To help prompt me to consider important information that might be impacting today's encounter and assessment, information from prior notes written by myself or my colleagues may have been "brought forward" into today's note. My signature on this note, however, is an attestation that I personally performed the exam, history, and/or decision-making noted today, and, unless otherwise indicated, the interactions with patient, family, and staff as well as the review of records all occurred today. I also attest that the listed assessment and stated plan reflect my best clinical judgment today based on the combination of historical information, prior notes, and today's exam/ interactions. When time spent is documented, it refers only to time spent today by the signer, or if indicated, combined time spent today by collaborating physician/nurse practitioner. (Shannen See) Collaborating MD Comments Patient was discussed with SWING RIDE OPERATOR. Agreeable to assessment and plan. (Alexei Hanson MD) Shannen See Apr 06, 2017 11:15 Alexei Hanson MD Apr 07, 2017 11:52
--- NOTE | 2017-04-06 11:39 | HHI.CCPN ---
Subjective Remarks/Hospital Course 67-year-old male with past medical history of primary sclerosing cholangitis with orthotopic liver transplant at [facility] in 2001, hypertension, atrial fibrillation status post ablation, hyperlipidemia, diabetes mellitus who presents to [facility] emergency department with altered mental status, fever, urinary incontinence. He was brought in by his . She states that this morning he was doing well and participated with home health physical therapy. When his returned home this evening she found him lethargic and minimally responsive. He had a cup full of mucus and when she inquired about it he stated that he had vomited. He refused ambulance transport. He had a temperature of 103 upon arrival to the emergency department. His states he told ED staff that he had experienced dysuria starting today. He has h/o BPH and UTI in the past. He has chronic low back pain. He denies headache or neck stiffness. His states he returned to his baseline mental status while in the ED and was conversant with her. He had no focal weakness and no witnessed seizure. His ED workup demonstrated U/a with moderate bacteria, 13 WBC, 2 RBC. White blood cell count was 14 with 9% bands, hemoglobin 10.5, platelets 135, AST 45, ALT 31, alkaline phosphatase 172, PT 12.3, INR 1.1 . Creatinine was 2.32 (baseline about 1.6-2), BUN 73, sodium 132 , potassium 5.2, bicarbonate 17 His initial lactic acid was 1.6. He was given Zosyn and 3 L NS bolus and admitted to the hospitalist service. He was complaining of chronic back pain and was anxious/agitated so was given Ativan 0.5 mg IV (chronically on Xanax). ED physician Dr. Orozco was called in because he became unresponsive and he was hypopneic with inadequate respirations. Sats were in the 60s. He complained to his that he could not see. He was hypotensive in 70s and post-intubation BP dropped to 60s/40s and [facility] was called. CVL was placed and he was started on levophed and vasopressin. He is awake on vent and answering questions yes/no. 03/22: patient in refractory distributive shock. I evaluated the patient multiple times throughout the day beginning around 0600 and at frequent intervals. Patient remains acidotic on maximal vasopressor therapy. I had discussions with Dr. Anaya with ID, cultures are growing out Acinetobacter. abx changed to tobra, vanc, meropenem, levaquin, unasyn. continued ivf resuscitation throughout the day guided by frequent IVC and cardiac echo. formal echo with grossly preserved LV function and mild RV dysfunction. but IVC continued to be collapsable. acute renal failure worsening and acidosis severe. started on bicarb drip. repeat CT abd/pelvis performed. I personally transported patient down to CT scanner given how severely unstable the patient was. Discussed with general surgery and interval CT scan is necessary to eval for intra-abdominal source of sepsis. interval CT without change. most likely Acinetobacter pneumonia with overwhelming septic shock. discussed with at length multiple times today regarding his life-threatening infection and his high risk of mortality. 03/23: vasopressors weaning down. patient waking up, following commands. still persistently acidotic, in multiorgan failure. renal dysfunction persists and oliguric. acinetobacter sensitivities not resulted. 03/24: off vasopressors. clinically beginning to improve. Acinetobacter is pansensitive. oliguria persists, but Cr stable and no current indication for acute HD. 03/25: went into afib RVR yesterday. given mgso4 and started aggressive forced diuresis with lasix drip at 20mg/hr. converted spontaneously back to NSR after only about 2 hours. This AM net -2.4L/24h. continues to make 200cc/hr uop. hemodynamics stable. very low-dose norepinephrine requirement. Cr stable, though RAN persists. 03/26: remains in afib, intermittently RVR. on diltiazem drip. Cr worse. uop declining. appears intravascularly dry. stopped lasix drip. wbc uptrending, but still appears nontoxic. 03/27 Afebrile, WBC 16.8 from 22k. Afib converted to sinus rhythm in 50s, discontinuing cardizem 5 mg/hr that is running. Creatinine steady at 2.75 ( previoulsy 2.8 <--2.81). UOP was in 70s this morning, now down to 50 cc/hr and 30 cc/hr. Positive fluid balance last 24 hours. Now CI 2.1 SVV 7, SVI 33. Glucose poorly controlled in 200s to 300s despite high does insulin sliding scale. Off vasopressors since this morning. 03/28 C diff positive. Started vancomycin po overnight. Tolerating tube feeds. A fib RVR in 130s this morning and initially hypotensive when went into Afib and levophed started but quickly weaned off. Restarting cardizem drip. BUN increased but creatinine relatively unchanged. UOP better with lasix yesterday and now edema slightly improved. Wean hydrocortisone. Glucose better after initiation of detemir but still 210. 03/29: Afebrile. Intermittently A. fib with RVR currently normal sinus rhythm. -4000 cc urine output has 24 hours. Arousable and intermittently following commands. 03/30: Afebrile. Intermittently in normal sinus rhythm/A. fib with RVR. Adequate prep. Increasing BUN and creatinine noted. Arousable on the ventilator and will follow commands. Tolerate CPAP 1 hour so far today. Positive BM. Increased residuals from tube feeding noted ~ 400 cc 03/31: Currently afebrile. On PSV trial since 08:40. Tolerating tube feeds at goal rate. Back in A. fib with RVR cards drip at 10 mg an hour. Started on normal saline for gentle hydration. Arousable and following commands. 04/01: Currently afebrile. On PSV trials. Tolerating tube feeds at goal. requesting palliative care consult for goals of care. She does not desire trach at this time. 04/02: Afebrile. On ventilator overnight. Received PRBCs overnight and IV fluids adjusted due to hemoglobin 6.3 and sodium 152. No active bleeding noted. Arousable the ventilator will follow commands. Tolerating PSV trials 4 hours yesterday. 04/03: afebrile, awake, alert this morning. on PSV. sodium still 153 despite free water replacement. BUN still significantly elevated. hgb stable at 7. no active bleeding. Cr downtrending slightly. Subjective: 04/04: yesterday passed SBT, but traveled to MRI and was fatigued at the end of the day. This morning, had acute onset of hypoxemia and respiratory distress. CXR with evidence of left-sided mucous plugging. Obtained bronch with evidence of significant LLL mucous plugging. repeat BAL from LLL sent. FK level downtrending to 4.2 on 04/03. 04/05: The patient remain on CPAP trials today on Precedex infusion successfully for several hours. Tentative plans for a trial of extubation with discussion with the near future in conjunction with palliative care team, regarding goals of care. 04/06: Attempted to CPAP trial this morning, unsuccessful after 15 minutes. Patient was noted to be severely anemic repeat hemoglobin showed 6.9, patient being transfused 2 units of packed cells this a.m.. Repeat CT of the brain ordered secondary to MRI imaging showing hygromas. Extensive discussion with palliative care team, and spouse regarding a trial of extubation, if patient meets criteria with CPAP trials vs. possible withdrawal. Objective Vital Signs Date Time Temp Pulse Resp B/P Pulse Ox O2 Delivery O2 Flow Rate FiO2 04/06/17 10:00 40 04/06/17 10:00 77 04/06/17 09:33 93 04/06/17 08:00 99.5 148/76 163/67 04/05/17 04:00 19 Intake and Output 04/05/17 04/05/17 04/05/17 07:59 15:59 23:59 Intake Total 1425 ml 367 ml 888 ml Output Total 1495 ml 1025 ml 925 ml Balance -70 ml -658 ml -37 ml Result Diagram: 04/06/17 0728 04/06/17 0728 Other Results Microbiology Date/Time Procedure Status Source Growth 04/04/17 11:45 Gram Stain - Final Complete Bronchial Washings Bronchial 04/04/17 11:45 Bronchial Culture - Final Complete Bronchial Washings Bronchial HEAVY GROWTH NORMAL RESPIRATORY MIKHAIL Imaging Last Impressions Chest X-Ray 04/02/17 0600 Signed Impressions: Service Date/Time: Sunday, April 02, 2017 03:55 - CONCLUSION: 1. Bilateral lower lobe atelectasis versus pneumonia. Bilateral effusions There has been no significant change when compared to the prior exam. Arpit Contreras MD Upper Extremity Ultrasound 03/29/17 0000 Signed Impressions: Service Date/Time: Wednesday, March 29, 2017 11:02 - CONCLUSION: Small amount of thrombus in the left cephalic vein and the left basilic vein. Right upper extremity is unremarkable . Valerio Jerome MD Lower Extremity Ultrasound 03/29/17 0000 Signed Impressions: Service Date/Time: Wednesday, March 29, 2017 10:40 - CONCLUSION: Normal examination. Valerio Jerome MD Abdomen Ultrasound 03/22/172122 Signed Impressions: Service Date/Time: Wednesday, March 22, 2017 08:14 - CONCLUSION: 1. Mild diffusely heterogeneous transplant liver echotexture with small amount of volume loss. No definitive evidence for portal venous gas or significant pneumobilia by ultrasound exam. However, examination was not specifically tailored for extended interrogation of the hepatic vasculature. 2. No sonographic evidence for intra-or extrahepatic ductal dilatation. 3. Trace ascites and small bilateral pleural effusions. Everton Cruz MD Chest CT 03/22/17 Signed Impressions: Service Date/Time: Wednesday, March 22, 2017 15:37 - CONCLUSION: There is ascites and bilateral pleural effusion and worsening left lung consolidation. Indu Cunningham MD Abdomen/Pelvis CT 03/22/17 Signed Impressions: Service Date/Time: Wednesday, March 22, 2017 15:40 - CONCLUSION: Increase in ascites and mesenteric congestion since the prior exam. Indu Cunningham MD Abdomen X-Ray 03/22/17 Signed Impressions: Service Date/Time: Wednesday, March 22, 2017 07:00 - CONCLUSION: No findings characteristic of perforation. Nasogastric tube coiled within the fundus of the stomach. Emilio Snow MD Head CT 03/21/17 Signed Impressions: Service Date/Time: Tuesday, March 21, 2017 23:27 - CONCLUSION: Normal examination. Valerio Jerome MD Objective Remarks GENERAL: Chronically ill-appearing 67-year-old male, critically ill, semi-recombinant in bed. SKIN: Warm and dry. Stage I sacral decubitus ulcer stable HEAD: Atraumatic. Normocephalic. EYES: Pupils equal and round, 2 mm and reactive bilaterally. No scleral icterus. No injection or drainage. ENT: Mucous membranes pink and moist. Oropharynx without erythema or exits. NECK: Trachea midline. No apparent JVD. CARDIOVASCULAR: RRR. sinus by tele this morning. RESPIRATORY: Normal chest excursion. Diminished breath sounds in all basis GASTROINTESTINAL: Abdomen overall soft, non-tender, nondistended. Fecal containment device in situ : Mcpherson in place with light yellow urine output. Positive mild to moderate scrotal edema MUSCULOSKELETAL: There is muscular atrophy involving bilateral hands. Dependent edema and elbows of bilateral upper extremities. There is trace pedal edema. NEUROLOGICAL: Eyes open and makes eye contact. Nods and shakes head to simple question. GCS 11 T , was extremities 4, follows commands Procedures CT brain Date of Insertion: Mar 29, 2017 Line: Central Venous Catheter Side: Right Location: Subclavian A/P Assessment and Plan Assessment: 67yM s/p prior OLTx in 2001 now admitted with Acinetobacter septic shock and virulent strain C. Difficile colitis, with persistent multiorgan system dysfunction despite long aggressive therapy. Some organs have slight improvement, although overall prognosis is guarded. New acute hypoxic respiratory failure likely secondary to mucous plugging. Free water replacement. Weaning trials initiated, with tentative plan for trial of extubation in coordination with family. NEURO/PSYCH: Acute Vision change- resolved. Acute metabolic encephalopathy- resolving. Peripheral neuropathy Chronic benzodiazepine use Chronic narcotic use Cataracts Dexmedetomidine and fentanyl infusion for sedation and vent/ett tolerance, ventilator synchrony 04/05-propofol infusion discontinued Goal of RASS 0 Daily sedation vacation Per prior notes, patient reported to that he could not see before intubation. ?secondary to profound hypotension and hypoperfusion. Pupils reactive, nodding head peripherally to 1-[address] brain 03/21 revealed no acute intracranial findings 04/04 MRI brain-bilateral subdural fluid collections likely hygroma. No midline shift or mass effect. No acute infarction. There is some minimal acute hemorrhage in the left subdural fluid collection measuring 10 mm on the left and 6 mm on the right 04/06: Repeat CT brain ordered follow-up result EEG 03/22: severe slowing, no epileptiform activity Hold gabapentin 300 mg by mouth 3 times a day. Hold alprazolam 0.5 mg every 8 hours when necessary Oxycodone liquid 5 mg every 4 hours when necessary pain RESP: Acute hypoxic and hypercarbic respiratory failure- acutely worsening this morning. History of tobacco abuse Acute healthcare associated left lower lobe pneumonia PRVC 550/18/12/100% s/p bronch 04/04 urgently with LLL mucous plugging with thick purulent secretions. continue elevated PEEP at 12. could consider repeat SBT this afternoon if he clinically improves. Ventilator bundle Albuterol/ipratropium nebulizers every 6 hours. Albuterol nebulizers every [address] chest 03/21 - dense consolidation of LLL with air bronchograms. Bronchoscopy with BAL lingula 03/22 - no growth to date SBT as clinically indicated as above CXR 04/02 reveals bilateral infiltrates and bilateral pleural effusions. CV: Septic shock with multi system organ failure- resolved History of atrial fibrillation status post ablation currently intermittent A fib RVR now in normal sinus rhythm History of hypertension Hyperlipidemia Evaluated by Dr. Lovell who has recommended maintenance Cardizem to 90 q6. Initial troponin 0.03, mild increase to 0.06 is likely related to sepsis. Echo from 01/23/17 - +LVH, EF 60-65%. No regional wall motion abnormalities. Left atrial dilation. Echo 03/22- preserved LV function, mild RV dysfunction. collapsable IVC. Hold medications amlodipine 10 mg daily for hypertension on vasopressors, atorvastatin 40 mg daily for dyslipidemia with elevated LFTs, spironolactone 25 mg daily with acute kidney injury. Not ideal case for resumption for sotalol 80 mg twice a day/home medication Received IV Lasix 40 mg IV twice a day previously. This currently on hold due to elevated BUN/creatinine. 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 difficile Hypoalbuminemia Patient currently Glucerna 1.5@60 cc an hour/currently at goal Metoprolol 40 mg IV twice a day Patient has been followed by Dr. Mallory as outpatient. He has not been able to follow closely with [facility] due to financial reasons. states he has Prograf levels done at [place] and [facility] [place] [facility]. She states he has been referred to [facility] for possible repeat transplant due to plasma cell hepatitis but has not had followup appointment yet. Per GI notes, patient was refused for liver transplant at [facility] due to prior association with [place]. Prograf level currently downtrending to 4.7. Increase FK dose to 2mg po BID, recheck daily levels at 08:30am. CT abd/pelvis 03/21non-contrast - pneumobilia, fecal impaction, no free air or fluid. repeat CT abd pelvis 03/22: no change. Patient known to Dr. Mallory. GI has signed off for now, reconsult if needed. On Xifaxan 550 twice a day and lactulose 30 cc twice a day. UROLOGY: BPH Hold Proscar 5 milligrams daily Flomax 0.4 mg daily in light of hypotension. Resume when clinically indicated Maintain Mcpherson catheter FEN/RENAL: Acute on chronic kidney injury- persistent. Acute Uremia Persistent Hypernatremia Hypokalemia Hyperphosphatemia Monitor intake and output hourly. Monitor electrolytes and replace as indicated. Urine eosinophils negative 03/24. Avoid nephrotoxic drugs Nephrology following Dr. Mejía. Continue free water to 300cc q4h. Begin D5W@ 50cc/hr. PhosLo 667 mg by mouth 3 times a day phosphorus binder. recheck daily electrolytes, including phos. ID: Septic shock-resolved LLL HCAP- Acinetobacterbaummini bacteremia C difficile diarrhea d/c Unasyn today. Vancomycin 500 po qid 03/29 and IV Flagyl 500 mg every 8 hours started for C. difficile 027 positive ID following: Dr. Anaya. HEME: Leukocytosis- resolved. Chronic normocytic anemia Acute on chronic Thrombocytopenia Left cephalic/basilic superficial thrombus Monitor CBC daily monitor trends. Preliminary bilateral upper extremity Dopplers revealed left cephalic/basilic superficial thrombus. Treated with DVT prophylaxis does not meet transfusion triggers at this time. ENDO: Diabetes mellitus Hyperglycemia Insulin Detemir 15 units subcutaneous q12. Currently on sliding scale insulin/high regimen every 4 hours s/p stress dose steroids. PROPH: SCDs. Continue heparin 5000 units subcutaneous twice a day Pantoprazole 40 mg IV twice a day ACCESS: Right subclavian central venous line placed 03/29 # 8. Left radial art line 03/29 #8 Dispo: Extensive discussion with Ms. St, updated on patient's medical status CT of the brain pending. The patient continues to fail CPAP trials extensive discussion with palliative care team, regarding goals of care. Family considering withdrawal with transition to comfort care versus reintubation with possible tracheostomy. All questions answered. Please refer to palliative care note. This patient remains critically ill with one or more organ systems which are or may become a threat to life. I have spent in excess of 45 minutes discontinuously in the care and management of this patient. This time is exclusive of procedures, and includes, but is not limited to, evaluation of the patient, review of the medical record, discussions with family, consultants, nursing staff, or respiratory therapy, and documentation in the medical record. Physician Blaire Kemp MD Apr 06, 2017 11:39
--- NOTE | 2017-04-06 12:09 | HHI.GIFU ---
Subjective Remarks patient is on a vent, failed weaning measures per nurse, she is going for MRI of the head. No active bleeding reported, 2 units of blood ordered (Shelton Wolfe) Objective Vitals I&O Vital Signs Date Time Temp Pulse Resp B/P Pulse Ox O2 Delivery O2 Flow Rate FiO2 04/06/17 11:12 98 40 04/06/17 10:00 40 04/06/17 10:00 77 04/06/17 09:33 93 40 04/06/17 09:09 40 04/06/17 09:09 100 40 04/06/17 08:59 100 40 04/06/17 08:00 40 04/06/17 08:00 69 04/06/17 08:00 99.5 69 148/76 100 163/67 04/06/17 06:00 80 04/06/17 05:53 97 40 04/06/17 04:00 98.7 75 133/72 92 134/56 04/06/17 04:00 75 04/06/17 04:00 40 04/06/17 03:28 99 40 04/06/17 02:00 63 04/06/17 00:00 63 04/06/17 00:00 99.0 63 126/72 98 141/56 04/06/17 00:00 40 04/05/17 22:31 97 40 04/05/17 22:30 40 04/05/17 22:00 64 04/05/17 20:00 98.8 62 129/70 100 138/56 04/05/17 20:00 62 04/05/17 20:00 40 04/05/17 18:00 66 04/05/17 16:34 100 40 04/05/17 16:00 40 04/05/17 16:00 63 04/05/17 16:00 98.5 63 153/78 99 161/65 04/05/17 14:00 65 04/05/17 14:00 65 I/O 04/05/17 04/05/17 04/05/17 04/06/17 04/06/17 04/06/17 07:00 15:00 23:00 07:00 15:00 23:00 Intake Total 1425 ml 367 ml 888 ml 1547 ml Output Total 1495 ml 1025 ml 925 ml 725 ml Balance -70 ml -658 ml -37 ml 822 ml IV Total 318 ml 367 ml 344 ml 458 ml Tube Feeding 447 ml 244 ml 489 ml Other 660 ml 300 ml 600 ml Output Urine Total 925 ml 825 ml 775 ml 575 ml Stool Total 570 ml 200 ml 150 ml 150 ml Tube Feeding Residual Discard 0 ml Laboratory Laboratory Tests Test 04/06/17 04/06/17 07:28 09:45 White Blood Count 8.2 Red Blood Count 2.37 Hemoglobin 6.9 Hematocrit 20.7 Mean Corpuscular Volume 87.3 Mean Corpuscular Hemoglobin 29.0 Mean Corpuscular Hemoglobin 33.3 Concent Red Cell Distribution Width 16.9 Platelet Count 90 Mean Platelet Volume 9.4 Sodium Level 151 Potassium Level 3.8 Chloride Level 119 Carbon Dioxide Level 26.6 Anion Gap 5 Blood Urea Nitrogen 74 Creatinine 1.43 Estimat Glomerular Filtration 49 Rate Random Glucose 120 Calcium Level 7.8 Blood Type O POSITIVE Antibody Screen NEGATIVE Crossmatch Leukocyte-Reduced Red Blood Cells Blood Bank Comment Date/Time Procedure Status Source Growth 04/04/17 11:45 Gram Stain - Final Complete Bronchial Washings Bronchial 04/04/17 11:45 Bronchial Culture - Final Complete Bronchial Washings Bronchial HEAVY GROWTH NORMAL RESPIRATORY MIKHAIL Physical Exam HEENT: Normocephalic; atraumatic CHEST: Diminished at left, OETT to vent. CARDIAC: RRR ABDOMEN: Soft, nondistended, nontender; hepatosplenomegaly; bowel sounds faint EXTREMITIES: 2 + edema in upper extremities SKIN: Generalized pallor FINNISH RUBBER: Sedated on vent (Shelton Wolfe) Assessment and Plan Plan ASSESSMENT: - CDiff colitis, Epid 027 (+). Pt on ampicillin for acinetobacter baumannii/ Haemol bacteremia. ID following. Flexiseal with dark green stool present. On Oral vanco and flagyl. 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 He has not been seen at the [facility] and 5-10 years secondary to financial issues. Unfortunately, he cannot make an appointment to follow up at [facility] until he makes a payment of $8,000 for an outstanding balance. The tells me charles there is no way she can make this payment and that she will have to "deal with that later." We did refer patient to [facility], but patient was declined secondary to having his transplant done at [facility] and they said that he would need to follow up at [facility]. 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 Similar histologic findings can also be seen in plasma cell rich rejection. Correlation with recent BILLY, ASMA, and serum IgG level is recommended. Typical features of acute cellular rejection are not seen. There is no evidence of chronic biliary tract disease or active steatohepatitis. Labs from January 28, 2017 revealed IgG total 3887, IgG1 2359, IgG3 57, IgG4 > 300.00. BILLY negative, ASMA negative. MELD 16. Spoke to Tiana Lo at [facility] to update on patient's condition and to see if he would able to be seen at their facility ([facility] has declined patient per our outpatient referral records). Per Tiana Lo, patient will not be able to be seen or make recommendations at [facility] until they have contacted Central Appointment Scheduling and settles outstanding balance. They cannot make recommendations , as they have not seen this patient since 2007 and would need to start the whole process over again and cannot do this until the outstanding balance is settled. LFTs remain stable with T. Bili 0.4, AST 29, ALT 19, ALk Phosph 81. - Anemia. Pt had drop in hgb /20 from 7.8/23.3----> 6.3/18.8. S/P 2 unit of prbc. 8/23.9 today. There was is no obvious blood loss. Tolerating TF. Flexiseal with dark green liquid stool. Will continue PPI and monitor for any signs of active bleeding. - Coagulopathy. Stable - Sepsis with multisystem failure. Pt with bandemia, UTI/PNA. Bronchial washings with no growth 48 hours, mycobacterial culture pending, fungal culture pending urine negative for legionella and streptococcus, urine cx (-), Bcx Acinetobacter Baumannii/Haemol, rpt with no growth. WBC 10.1. ID following, on Ampicillicin. Oral vanco, flagyl - Resp. Failure, HCAP. Abx, Nebs. Vent per CCM. Had acute onset of hypoxemia and respiratory distress this morning. CXR showed left-sided mucous plugging. Had bronchoscopy with evidence of significant LLL mucous plugging. Currently sedated on vent. - RAN with electrolyte abnormalities. Renal following, likely acute injury secondary to acute tubular necrosis r/t hypotension. Avoid nephrotoxins. Creat improved 1.66 - AMS. EEG with diffusely low recording, could be medication effect as the patient was on fentanyl. No hemisphere asymmetries are noted. No epileptiform or seizure activity seen. Currently sedated on vent. - Hx HTN, hyperlipidemia, BPH, per attending. 04-05-17 - H&H low but stable. no obvious bleeding reported, Flexiseal with dark green liquid stool. LFTs have been normal 04-06-17- drop in hgb today to 6.9, still no signs of bleeding. 2 units of blood ordered. Dark green liquid stools noted in Flexiseal PLAN: - TF as tolerated - Cont. Oral Vanco - Cont. Prograf - Cont. Xifaxan - Cont. PPI - Cont. to hold lactulose for diarrhea - Abx per ID recommendations - Monitor labs - Monitor stool output - Notify GI of any active bleeding - Supportive care - CCM following - ID following - Further recommendations to follow based on results of above - Of note, patient has been declined by [facility] secondary to having original transplant at [facility] - [facility] will not see patient or make recommendations until they have contacted the Central Appointment Office to resolve outstanding balance- aware. Patient seen and examined by Dr. Barnes and myself (Shelton Wolfe) Physician Comments Patient seen and examined Agree with above Continue with current supportive care Monitor labs (Pasha Barnes MD) Shelton Wolfe Apr 06, 2017 12:09 Pasha Barnes MD Apr 06, 2017 22:54
[2017-04-06] MEDS: DEXMEDETOMIDINE INJ 1,000 MCG in SODIUM CHLOR 0.9% 250 ML INJ 240 ML IV SCH ×2 (16:02→21:30)
--- NOTE | 2017-04-06 16:56 | HHI.NPPN ---
Subjective History of Present Illness 67-year-old male with past medical history of liver transplant in 2001, hypertension, atrial fibrillation, hyperlipidemia, diabetes mellitus, history of atrial fibrillation with ablation, chronic kidney disease was admitted on March 19 because of a lethargy and decreased responsiveness. I was called due to decrease urine out put and increasing Creatinine. Additional Remarks Patient on the vent, has eyes open, clinically stable. Objective Data Data 04/05/17 04/06/17 19:00 07:00 Intake Total 367 ml 2435 ml Output Total 1025 ml 1650 ml Balance -658 ml 785 ml IV Total 367 ml 802 ml Tube Feeding 733 ml Other 900 ml Output Urine Total 825 ml 1350 ml Stool Total 200 ml 300 ml Vital Signs Date Time Temp Pulse Resp B/P Pulse Ox O2 Delivery O2 Flow Rate FiO2 04/06/17 16:00 98.9 84 180/91 185/72 04/06/17 16:00 84 04/06/17 16:00 40 04/06/17 15:15 98.9 63 157/63 98 04/06/17 14:29 94 40 04/06/17 14:00 63 04/06/17 12:30 99.1 71 160/82 97 159/64 04/06/17 12:00 99.5 70 160/82 99 160/63 04/06/17 12:00 40 04/06/17 12:00 70 04/06/17 11:12 98 40 04/06/17 10:00 40 04/06/17 10:00 77 04/06/17 09:33 93 40 04/06/17 09:09 40 04/06/17 09:09 100 40 04/06/17 08:59 100 40 04/06/17 08:00 40 04/06/17 08:00 69 04/06/17 08:00 99.5 69 148/76 100 163/67 04/06/17 06:00 80 04/06/17 05:53 97 40 04/06/17 04:00 98.7 75 133/72 92 134/56 04/06/17 04:00 75 04/06/17 04:00 40 04/06/17 03:28 99 40 04/06/17 02:00 63 04/06/17 00:00 63 04/06/17 00:00 99.0 63 126/72 98 141/56 7/25/17 00:00 40 04/05/17 22:31 97 40 04/05/17 22:30 40 04/05/17 22:00 64 04/05/17 20:00 98.8 62 129/70 100 138/56 04/05/17 20:00 62 04/05/17 20:00 40 04/05/17 18:00 66 -: 04/06/17 0728 04/06/17 0728 Physical Exam General Appearance Remarks Intubated and sedated. Eyes Eye Exam: Pupils Equal Throat Throat Exam: Oral Mucosa [place] & Moist Pulmonary Resp Exam: Crackles, Rhonchi, Decreased Bases, Diminished Breath Sounds Cardiology CV Exam: Regular, Normal Sinus Rhythm Gastrointestinal/Abdomen GI Exam: Soft, Non-Tender, Bowel Sounds Present Extremeties Extremities Exam: Trace Edema Neurologic Neuro Exam: Sedated Assessment/Plan Assessment Summary: RAN/Acute Renal Failure, CKD Stage III Problem List: (1) Atrial fibrillation with RVR (2) Respiratory failure (3) Shortness of breath (4) PNA (pneumonia) (5) CHF (congestive heart failure) (6) Anemia (7) Acute on chronic kidney disease, stage 3 (8) RAN (acute kidney injury) Plan Patient has chronic kidney disease and develop RNA. Patient has good urine out put. Continue gentle hydration. Continue antibiotics. Weaning as per CCM. Avoid Nephrotoxins. Creatinine continue to improve. Na. is slightly better. On PO Vanco for C. Difficile. Failed weaning again. On GT feeding. Seen by palliative care. Problem Qualifiers (1) Respiratory failure: Qualified Code: J96.01 - Acute respiratory failure with hypoxia Sunil Maya MD Apr 06, 2017 16:56
[2017-04-06] MEDS: RESP: ALBUTEROL 2.5 MG/3 ML NEB (PRN) NEB (17:39)
[2017-04-06 20:00] LABS: AUTOMATED NEUTROPHIL # 7.4 TH/MM3 (1.8-7.7); BASOPHIL % 0.4 % (0.0-2.0); EOSINOPHIL # 0.2 TH/MM3 (0-0.4); EOSINOPHIL % 1.8 % (0.0-4.0); HEMATOCRIT 27.7 % (39.0-51.0); HEMO FLAGS DIFF FINAL; LYMPH % 12.4 % (9.0-44.0); LYMPHOCYTE # 1.1 TH/MM3 (1.0-4.8); MEAN CELL VOLUME 87.3 FL (80.0-100.0); MEAN CORPUSCULAR HEMOGLOBIN 28.7 PG (27.0-34.0); MEAN CORPUSCULAR HGB CONC 32.9 % (32.0-36.0); MONO % 5.2 % (0.0-8.0); NEUT % 80.2 % (16.0-70.0); PLATELET COUNT 100 TH/MM3 (150-450); RED BLOOD COUNT 3.18 MIL/MM3 (4.50-5.90); RED CELL DISTRIBUTION WIDTH 15.8 % (11.6-17.2); WHITE BLOOD COUNT 9.3 TH/MM3 (4.0-11.0)
[2017-04-07] VITALS (19 sets, daily range): BP systolic 114–177; BP diastolic 52–92; PULSE 62–94; RESP 18–22; TEMP 98.1–100; O2SAT 88–98
[2017-04-07] MEDS: DILTIAZEM HCL 90 MG TAB PO SCH ×4 (01:03→18:20)
[2017-04-07] MEDS: fentaNYL DRIP 250 ML IV SCH ×3 (01:35→13:07)
[2017-04-07] MEDS: DEXMEDETOMIDINE INJ 1,000 MCG in SODIUM CHLOR 0.9% 250 ML INJ 240 ML IV SCH ×3 (03:03→18:29)
[2017-04-07] MEDS: RESP: ALBUTEROL 2.5 MG/3 ML NEB (PRN) NEB (03:07)
[2017-04-07] MEDS: CHLORHEXIDINE GLUCONATE 2 % 1 PACK (2 CLOTHS) TOP SCH (04:00)
[2017-04-07] MEDS: HIGH DOSE INSULIN NOVOLIN REGULAR SUPPLEMENTAL SCALE SQ SCH ×6 (04:00→20:00)
[2017-04-07] MEDS: FREE WATER G-TUBE SCH ×6 (04:00→20:00)
[2017-04-07 04:02] LABS: HEMATOCRIT 27.3 % (39.0-51.0); MEAN CELL VOLUME 87.8 FL (80.0-100.0); MEAN CORPUSCULAR HEMOGLOBIN 29.3 PG (27.0-34.0); MEAN CORPUSCULAR HGB CONC 33.4 % (32.0-36.0); PLATELET COUNT 106 TH/MM3 (150-450); RED BLOOD COUNT 3.12 MIL/MM3 (4.50-5.90); RED CELL DISTRIBUTION WIDTH 16.2 % (11.6-17.2); REVIEW FLAG FINAL; WHITE BLOOD COUNT 8.8 TH/MM3 (4.0-11.0)
[2017-04-07] MEDS: PROPOFOL 1000 MG/100 ML INJ 100 ML IV SCH ×3 (04:24→13:06)
[2017-04-07 04:30] LABS: BICARBONATE 27.7 MEQ/L (21.0-32.0); MAGNESIUM 1.9 MG/DL (1.5-2.5)
--- NOTE | 2017-04-07 04:47 | RADRPT ---
EXAM DATE/TIME: 04/07/2017 03:21 [facility] COMPARISON: CHEST SINGLE AP, April 06, 2017, 3:55. INDICATIONS : Shortness of breath. MEDICAL HISTORY : Hypertension. Cirrhosis. Diabetes mellitus type II. Hepatitis B and C. SURGICAL HISTORY : Liver transplant ENCOUNTER: Subsequent ACUITY: 2 weeks PAIN SCORE: Non-responsive. LOCATION: Bilateral chest FINDINGS: Portable AP view of the chest demonstrates a normal-sized cardiac silhouette. Right subclavian centra l line and nasogastric tube remain present. Endotracheal tube is located very high in the trachea nate r the thoracic inlet. There is airspace consolidation bilaterally, left greater than right. Small ple ural-based opacities are stable. No pneumothorax is visualized. CONCLUSION: 1. Endotracheal tube is very high in the trachea with tip above the thoracic inlet. Consider advancem ent. 2. Stable bilateral airspace consolidation and small pleural effusions. Vin Montero MD on April 07, 2017 at 4:45 Board Certified Radiologist. This report was verified electronically.
[2017-04-07] MEDS: TACROLIMUS 1 MG CAP PO SCH ×2 (06:01→18:20)
[2017-04-07 06:45] LABS: BLOOD GAS BASE EXCESS -3.3 mmol/L (-2-2); BLOOD GAS CARBOXYHEMOGLOBIN 1.5 % (0-4); BLOOD GAS HCO3 21 mmol/L (22-26); BLOOD GAS METHEMOGLOBIN 1.1 % (0-2); BLOOD GAS O2 HGB SATURATION 94 % (90-100); BLOOD GAS OXYGEN CONTENT 18.5 Vol % (12.0-20.0); BLOOD GAS PCO2 37 mmHg (38-42); BLOOD GAS PO2 85 mmHg (61-120); BLOOD GAS TOTAL HGB 13.9 G/DL (12.0-16.0); CRITICAL VALUE NO; OXYGEN DEVICE VENT; TEMP CORR TO 98.6
[2017-04-07 06:46] LABS: DRAW SITE ART LINE; FIO2 100 %; STAT NO; ULNAR PULSE PRESENT; VENT SETTINGS SEE COMMENTS
[2017-04-07] MEDS: DEXTROSE 5% IN WATE 1000ML INJ 1,000 ML IV SCH ×2 (08:22→17:00)
[2017-04-07] MEDS: CHLORHEXIDINE 0.12% (ORAL KIT) 15 ML CUP MT SCH ×2 (08:23→23:17)
[2017-04-07] MEDS: HEPARIN SODIUM - SQ 10,000 UNITS/ML VIAL SQ SCH ×2 (09:00→23:23)
[2017-04-07] MEDS: INSULIN DETEMIR 100 UNITS/ML VIAL SQ SCH ×2 (09:00→21:00)
[2017-04-07] MEDS: SODIUM CHLORIDE 0.9% FLUSH 10 ML FLUSH IV FLUSH SCH ×2 (10:27→23:20)
[2017-04-07] MEDS: VANCOMYCIN 500 MG VIAL (FOR ORAL USE ONLY) PO SCH ×4 (10:28→23:21)
[2017-04-07] MEDS: PANTOPRAZOLE SODIUM 40 MG VIAL IV SCH ×2 (10:28→23:18)
[2017-04-07] MEDS: DOCUSATE SODIUM 50 MG/SENNA 8.6 MG TAB PO SCH ×2 (10:29→23:20)
[2017-04-07] MEDS: RIFAXIMIN 550 MG TAB OG-TUBE SCH ×2 (10:29→23:20)
[2017-04-07] MEDS: FOLIC ACID 1 MG TAB PO SCH ×2 (10:29→23:21)
[2017-04-07] MEDS: CHOLECALCIFEROL (VIT D3) 1000 UNIT TAB PO SCH ×2 (10:29→23:20)
[2017-04-07] MEDS: CALCIUM ACETATE 667 MG CAP PO SCH ×3 (10:29→18:20)
--- NOTE | 2017-04-07 13:17 | HHI.HCPN ---
Reason for visit a. To assist with evaluation and management of symptoms including: shortness of breath, anxiety , pain b. To assist medical decision maker(s) with: better understanding of current medical conditions; weighing benefits/burdens of medical treatment options; making medical treatment decisions. Subjective/Interval History patient seen today to follow up with regarding goals of treatment. d/w primary nurse, continuing education dean- no CPAP trial until after follow up CT scan, no sedation lightening/holiday until able to obtain CT. Currently on precedex, diprivan,fentanyl . H&H stable 9.1/27.7 post transfusion 2 U RBC yesterday. Platelets 106. BUN 62/creatinine 1.42, improving. UOP adequate. CXR = stable, bibasilar airspace consolidation. Seen initially in room no family present, arrives just after my arrival. Spoke w her at bedside, update on no CPAP or sedation weaning until after CT obtained. Review overall condition, current assessment, current tx, and possibility to require trach to cont aggressive tx. She does not think he would want a trach, but she is also struggling to make that decision without his input. She continues to have hope that he could be awakened enough to again nod in participation, I again gently explore that he has not tolerated lightening of sedation and we may not get him to participate again, but that she knows him and his wishes. She wishes to speak w continuing education dean again, and wonders if he might be lightened today with her ( ) present to assess his wishes. Nsg to d/w continuing education dean, advised I am not certain they will be able to safely lighten him to that point. No changes in goals today, she wants to try to speak w/ pt RE his wishes. . Advance Directives Living Will: Never completed Health Care Surrogate: Never completed Durable Power of Linotype Machinist Apprentice: Never completed Advance Directive Specifics Health Care Surrogate(s): No known written advance directives per family report. According to [place] statutes, health care proxy decision makers also patient's spouse. . Objective Vital Signs Date Time Temp Pulse Resp B/P Pulse Ox O2 Delivery O2 Flow Rate FiO2 04/07/17 11:13 98 60 04/07/17 07:51 94 60 04/07/17 06:00 71 04/07/17 04:00 77 04/07/17 04:00 100.0 77 132/73 96 136/52 04/07/17 04:00 100 04/07/17 03:07 92 100 04/07/17 02:00 94 04/07/17 00:05 94 50 04/07/17 00:00 50 04/07/17 00:00 71 04/07/17 00:00 98.7 71 18 146/78 91 148/56 04/06/17 22:00 65 04/06/17 22:00 65 04/06/17 20:55 96 50 04/06/17 20:00 50 04/06/17 20:00 63 04/06/17 20:00 98.5 63 18 127/72 88 135/54 04/06/17 18:00 63 04/06/17 17:28 91 50 04/06/17 16:00 98.9 84 180/91 185/72 04/06/17 16:00 84 04/06/17 16:00 40 04/06/17 15:15 98.9 63 157/63 98 04/06/17 14:29 94 40 04/06/17 14:00 63 Intake & Output 04/07/17 04/07/17 07:00 19:00 Intake Total 2507 ml Output Total 1150 ml Balance 1357 ml IV Total 1839 ml Tube Feeding 668 ml Output Urine Total 1100 ml Stool Total 50 ml Physical Exam CONSTITUTIONAL/GENERAL: This is an adequately nourished patient, sedated on mech vent TUBES/LINES/DRAINS: ETT, NG left nare, right subclavian central line, left wrist arterial line, bilateral soft wrist restraints, Mcpherson, Dignishield rectal drain, SCDs and podus boots. CARDIOVASCULAR: regular rate, no murmur. +1-2+ edema BUE RESPIRATORY/CHEST: unlabored respirations via mech vent, course rhonchi throughout, diminished to bases GASTROINTESTINAL: Abdomen soft, non-tender, nondistended. Bowel sounds hypoactive. +NGT in place GENITOURINARY: Without palpable bladder distension. Mcpherson catheter in place. NEUROLOGICAL: sedated, non responsive to my exam. no eye opening PSYCHIATRIC: no apparent distress at time of exam. . Diagnostic Tests Laboratory Laboratory Tests Test 04/04/17 04/05/17 04/05/17 04/06/17 16:16 03:35 10:30 07:28 Blood Gas Puncture Site ART LINE Blood Gas Patient Temperature 98.6 Blood Gas HCO3 24 mmol/L (22-26) Blood Gas Base Excess -0.7 mmol/L (-2-2) Blood Gas Oxygen Saturation 95 % (90-100) Arterial Blood pH 7.40 (7.380-7.420) Arterial Blood Partial 39 mmHg (38-42) Pressure CO2 Arterial Blood Partial 98 mmHg Pressure O2 (61-120) Arterial Blood Oxygen Content 10.9 Vol % (12.0-20.0) Arterial Blood 1.6 % (0-4) Carboxyhemoglobin Arterial Blood Methemoglobin 1.3 % (0-2) Blood Gas Hemoglobin 8.0 G/DL (12.0-16.0) Oxygen Delivery Device VENTILATOR Blood Gas Ventilator Setting CPAP+5/PS+5 Blood Gas Inspired Oxygen 40 % White Blood Count 10.9 TH/MM3 8.2 TH/MM3 (4.0-11.0) (4.0-11.0) Red Blood Count 2.59 MIL/MM3 2.37 MIL/MM3 (4.50-5.90) (4.50-5.90) Hemoglobin 7.6 GM/DL 6.9 GM/DL (13.0-17.0) (13.0-17.0) Hematocrit 22.7 % 20.7 % (39.0-51.0) (39.0-51.0) Mean Corpuscular Volume 87.8 FL 87.3 FL (80.0-100.0) (80.0-100.0) Mean Corpuscular Hemoglobin 29.5 PG 29.0 PG (27.0-34.0) (27.0-34.0) Mean Corpuscular Hemoglobin 33.6 % 33.3 % Concent (32.0-36.0) (32.0-36.0) Red Cell Distribution Width 16.9 % 16.9 % (11.6-17.2) (11.6-17.2) Platelet Count 101 TH/MM3 90 TH/MM3 (150-450) (150-450) Mean Platelet Volume 8.8 FL 9.4 FL (7.0-11.0) (7.0-11.0) Sodium Level 150 MEQ/L 151 MEQ/L (136-145) (136-145) Potassium Level 3.6 MEQ/L 3.8 MEQ/L (3.5-5.1) (3.5-5.1) Chloride Level 116 MEQ/L 119 MEQ/L (98-107) (98-107) Carbon Dioxide Level 26.7 MEQ/L 26.6 MEQ/L (21.0-32.0) (21.0-32.0) Anion Gap 7 MEQ/L (5-15) 5 MEQ/L (5-15) Blood Urea Nitrogen 96 MG/DL (7-18) 74 MG/DL (7-18) Creatinine 1.53 MG/DL 1.43 MG/DL (0.60-1.30) (0.60-1.30) Estimat Glomerular Filtration 46 ML/MIN (>89) 49 ML/MIN (>89) Rate Random Glucose 131 MG/DL 120 MG/DL (74-106) (74-106) Calcium Level 7.9 MG/DL 7.8 MG/DL (8.5-10.1) (8.5-10.1) Tacrolimus (Prograf) Level 6.0 NG/ML 2.5 NG/ML (5.0-20.0) (5.0-20.0) Test 04/06/17 04/06/17 04/07/17 04/07/17 09:45 18:45 03:30 06:18 Blood Type O POSITIVE Antibody Screen NEGATIVE Crossmatch Leukocyte-Reduced Red Blood Cells Blood Bank Comment White Blood Count 9.3 TH/MM3 8.8 TH/MM3 (4.0-11.0) (4.0-11.0) Red Blood Count 3.18 MIL/MM3 3.12 MIL/MM3 (4.50-5.90) (4.50-5.90) Hemoglobin 9.1 GM/DL 9.1 GM/DL (13.0-17.0) (13.0-17.0) Hematocrit 27.7 % 27.3 % (39.0-51.0) (39.0-51.0) Mean Corpuscular Volume 87.3 FL 87.8 FL (80.0-100.0) (80.0-100.0) Mean Corpuscular Hemoglobin 28.7 PG 29.3 PG (27.0-34.0) (27.0-34.0) Mean Corpuscular Hemoglobin 32.9 % 33.4 % Concent (32.0-36.0) (32.0-36.0) Red Cell Distribution Width 15.8 % 16.2 % (11.6-17.2) (11.6-17.2) Platelet Count 100 TH/MM3 106 TH/MM3 (150-450) (150-450) Mean Platelet Volume 8.9 FL 8.4 FL (7.0-11.0) (7.0-11.0) Neutrophils (%) (Auto) 80.2 % (16.0-70.0) Lymphocytes (%) (Auto) 12.4 % (9.0-44.0) Monocytes (%) (Auto) 5.2 % (0.0-8.0) Eosinophils (%) (Auto) 1.8 % (0.0-4.0) Basophils (%) (Auto) 0.4 % (0.0-2.0) Neutrophils # (Auto) 7.4 TH/MM3 (1.8-7.7) Lymphocytes # (Auto) 1.1 TH/MM3 (1.0-4.8) Monocytes # (Auto) 0.5 TH/MM3 (0-0.9) Eosinophils # (Auto) 0.2 TH/MM3 (0-0.4) Basophils # (Auto) 0.0 TH/MM3 (0-0.2) CBC Comment DIFF FINAL Differential Comment Sodium Level 149 MEQ/L (136-145) Potassium Level 4.0 MEQ/L (3.5-5.1) Chloride Level 116 MEQ/L (98-107) Carbon Dioxide Level 27.7 MEQ/L (21.0-32.0) Anion Gap 5 MEQ/L (5-15) Blood Urea Nitrogen 62 MG/DL (7-18) Creatinine 1.42 MG/DL (0.60-1.30) Estimat Glomerular Filtration 50 ML/MIN (>89) Rate Random Glucose 96 MG/DL (74-106) Calcium Level 8.1 MG/DL (8.5-10.1) Phosphorus Level 3.0 MG/DL (2.5-4.9) Magnesium Level 1.9 MG/DL (1.5-2.5) Blood Gas Puncture Site ART LINE Blood Gas Patient Temperature 98.6 Blood Gas HCO3 21 mmol/L (22-26) Blood Gas Base Excess -3.3 mmol/L (-2-2) Blood Gas Oxygen Saturation 94 % (90-100) Arterial Blood pH 7.37 (7.380-7.420) Arterial Blood Partial 37 mmHg (38-42) Pressure CO2 Arterial Blood Partial 85 mmHg Pressure O2 (61-120) Arterial Blood Oxygen Content 18.5 Vol % (12.0-20.0) Arterial Blood 1.5 % (0-4) Carboxyhemoglobin Arterial Blood Methemoglobin 1.1 % (0-2) Blood Gas Hemoglobin 13.9 G/DL (12.0-16.0) Oxygen Delivery Device VENT Blood Gas Ventilator Setting SEE COMMENTS Blood Gas Inspired Oxygen 100 % Result Diagram: 04/07/1732904/07/17 033 Procedures * 03/29/17 left subclavian central line placement * 03/22/17 fiber-optic bronchoscopy with bronchoalveolar lavage * 03/21/17 - left subclavian central line placement * 03/21/17 intubated . Assessment and Plan Disease Oriented Problem List: (1) History of liver transplant (2) Sepsis (3) Urinary tract infection (4) Altered mental status, unspecified (5) CHF (congestive heart failure) (6) Atrial fibrillation with RVR (7) Acute on chronic kidney disease, stage 3 (8) PNA (pneumonia) Symptom Scale: (1) Anxiety 0-10 Scale: Unable to quantify (2) Shortness of breath 0-10 Scale: 0 (3) Debility 0-10 Scale: Unable to quantify (4) Pain 0-10 Scale: 0 Pertinent Non-Medical Issues Psychosocial: . 1 son, lives local. Spiritual: [employer]. Legal: In the absence of written advance directives, according to [place] statutes, health care proxy decision makers also patient's spouse. Ethical issues impacting care: no known concerns at this time. . Important Contacts * Connie St, spouse: [phone] . 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 Overall prognosis appears poor. Would be hospice appropriate if goals are comfort oriented. . Code Status: Full Code Plan * Decision Maker: no known written advance directives, according to [place] statutes, health care proxy decision makers also patient's spouse. * ALTERNATE CODE: intubation only. No cardiac compressions, shock or ACLS. * GOALS : 04/07 met w , She continues to have hope that he could be awakened enough to again nod in participation, I again gently explore that he has not tolerated lightening of sedation and we may not get him to participate again, but that she knows him and his wishes. She wishes to speak w continuing education dean again , and wonders if he might be lightened today with her ( ) present to assess his wishes. Nsg to d/w continuing education dean, advised I am not certain they will be able to safely lighten him to that point. No changes in goals today, she wants to try to speak w/ pt RE his wishes. * SYMPTOMS: anxiety: on Propofol, precedex. Intermittently tearful per per prev family reports, though not witnessed or reported today. Pain: secondary to bedbound status, acute hospitalization, tubes, general debility and weakness. On Fentanyl drip 100mch/hr. no sx pain during my exam today. Dyspnea: no dyspnea during my visit on [facility] vent, breathing comfortably. Debility: has had frequent infections and hospitalizations over the past year with increased debility. * Palliative care number provided. * Palliative care will continue to follow throughout hospital course to assist with symptom management and clarification of goals as needed. . Attestation To help prompt me to consider important information that might be impacting today's encounter and assessment, information from prior notes written by myself or my colleagues may have been "brought forward" into today's note. My signature on this note, however, is an attestation that I personally performed the exam, history, and/or decision-making noted today, and, unless otherwise indicated, the interactions with patient, family, and staff as well as the review of records all occurred today. I also attest that the listed assessment and stated plan reflect my best clinical judgment today based on the combination of historical information, prior notes, and today's exam/ interactions. When time spent is documented, it refers only to time spent today by the signer, or if indicated, combined time spent today by collaborating physician/nurse practitioner. Shannen See Apr 07, 2017 13:17
--- NOTE | 2017-04-07 13:27 | HHI.GIFU ---
Subjective Remarks Patient is heavily sedated for upcoming ct of the brain, there is plans for extubation soon. He is receiving TF at rate 60 ml/hr and tolerating well, no bleeding reported (Shelton Wolfe) Objective Vitals I&O Vital Signs Date Time Temp Pulse Resp B/P Pulse Ox O2 Delivery O2 Flow Rate FiO2 04/07/17 11:13 98 60 04/07/17 07:51 94 60 04/07/17 06:00 71 04/07/17 04:00 77 04/07/17 04:00 100.0 77 132/73 96 136/52 04/07/17 04:00 100 04/07/17 03:07 92 100 04/07/17 02:00 94 04/07/17 00:05 94 50 04/07/17 00:00 50 04/07/17 00:00 71 04/07/17 00:00 98.7 71 18 146/78 91 148/56 04/06/17 22:00 65 04/06/17 22:00 65 04/06/17 20:55 96 50 04/06/17 20:00 50 04/06/17 20:00 63 04/06/17 20:00 98.5 63 18 127/72 88 135/54 04/06/17 18:00 63 04/06/17 17:28 91 50 04/06/17 16:00 98.9 84 180/91 185/72 04/06/17 16:00 84 04/06/17 16:00 40 04/06/17 15:15 98.9 63 157/63 98 04/06/17 14:29 94 40 04/06/17 14:00 63 I/O 04/06/17 04/06/17 04/06/17 04/07/17 04/07/17 04/07/17 07:00 15:00 23:00 07:00 15:00 23:00 Intake Total 1547 ml 1416 ml 2052 ml 1141 ml Output Total 725 ml 1150 ml 550 ml 600 ml Balance 822 ml 266 ml 1502 ml 541 ml IV Total 458 ml 689 ml 978 ml 861 ml Tube Feeding 489 ml 127 ml 388 ml 280 ml Packed Cells 686 ml Other 600 ml 600 ml Output Urine Total 575 ml 1000 ml 550 ml 550 ml Stool Total 150 ml 150 ml 50 ml Laboratory Laboratory Tests Test 04/06/17 04/07/17 04/07/17 18:45 03:30 06:18 White Blood Count 9.3 8.8 Red Blood Count 3.18 3.12 Hemoglobin 9.1 9.1 Hematocrit 27.7 27.3 Mean Corpuscular Volume 87.3 87.8 Mean Corpuscular Hemoglobin 28.7 29.3 Mean Corpuscular Hemoglobin 32.9 33.4 Concent Red Cell Distribution Width 15.8 16.2 Platelet Count 100 106 Mean Platelet Volume 8.9 8.4 Neutrophils (%) (Auto) 80.2 Lymphocytes (%) (Auto) 12.4 Monocytes (%) (Auto) 5.2 Eosinophils (%) (Auto) 1.8 Basophils (%) (Auto) 0.4 Neutrophils # (Auto) 7.4 Lymphocytes # (Auto) 1.1 Monocytes # (Auto) 0.5 Eosinophils # (Auto) 0.2 Basophils # (Auto) 0.0 CBC Comment DIFF FINAL Differential Comment Sodium Level 149 Potassium Level 4.0 Chloride Level 116 Carbon Dioxide Level 27.7 Anion Gap 5 Blood Urea Nitrogen 62 Creatinine 1.42 Estimat Glomerular Filtration 50 Rate Random Glucose 96 Calcium Level 8.1 Phosphorus Level 3.0 Magnesium Level 1.9 Blood Gas Puncture Site ART LINE Blood Gas Patient Temperature 98.6 Blood Gas HCO3 21 Blood Gas Base Excess -3.3 Blood Gas Oxygen Saturation 94 Arterial Blood pH 7.37 Arterial Blood Partial 37 Pressure CO2 Arterial Blood Partial 85 Pressure O2 Arterial Blood Oxygen Content 18.5 Arterial Blood 1.5 Carboxyhemoglobin Arterial Blood Methemoglobin 1.1 Blood Gas Hemoglobin 13.9 Oxygen Delivery Device VENT Blood Gas Ventilator Setting SEE COMMENTS Blood Gas Inspired Oxygen 100 Date/Time Procedure Status Source Growth 04/04/17 11:45 Gram Stain - Final Complete Bronchial Washings Bronchial 04/04/17 11:45 Bronchial Culture - Final Complete Bronchial Washings Bronchial HEAVY GROWTH NORMAL RESPIRATORY [facility] Imaging Last Impressions Chest X-Ray 04/07/17 0600 Signed Impressions: Service Date/Time: Friday, April 07, 2017 03:21 - CONCLUSION: 1. Endotracheal tube is very high in the trachea with tip above the thoracic inlet. Consider advancement. 2. Stable bilateral airspace consolidation and small pleural effusions. Vin Montero MD Brain MRI 04/03/17 0000 Signed Impressions: Service Date/Time: Monday, April 03, 2017 14:38 - CONCLUSION: 1. Bilateral subdural fluid collections likely hygromas although there is some minimal acute hemorrhage in the left subdural fluid collection measuring 10 mm on the left and 6 mm on the right. No midline shift or mass effect. Noncontrast CT brain recommended. 2. Minimal nonspecific white matter changes. 3. No acute infarction. Medhat Cevallos MD Upper Extremity Ultrasound 03/29/17 Signed Impressions: Service Date/Time: Wednesday, March 29, 2017 11:02 - CONCLUSION: Small amount of thrombus in the left cephalic vein and the left basilic vein. Right upper extremity is unremarkable . Valerio Jerome MD Lower Extremity Ultrasound 03/29/17 Signed Impressions: Service Date/Time: Wednesday, March 29, 2017 10:40 - CONCLUSION: Normal examination. Valerio Jerome MD Abdomen Ultrasound 03/22/172122 Signed Impressions: Service Date/Time: Wednesday, March 22, 2017 08:14 - CONCLUSION: 1. Mild diffusely heterogeneous transplant liver echotexture with small amount of volume loss. No definitive evidence for portal venous gas or significant pneumobilia by ultrasound exam. However, examination was not specifically tailored for extended interrogation of the hepatic vasculature. 2. No sonographic evidence for intra-or extrahepatic ductal dilatation. 3. Trace ascites and small bilateral pleural effusions. Everton Cruz MD Chest CT 03/22/17 Signed Impressions: Service Date/Time: Wednesday, March 22, 2017 15:37 - CONCLUSION: There is ascites and bilateral pleural effusion and worsening left lung consolidation. Indu Cunningham MD Abdomen/Pelvis CT 03/22/17 Signed Impressions: Service Date/Time: Wednesday, March 22, 2017 15:40 - CONCLUSION: Increase in ascites and mesenteric congestion since the prior exam. Indu Cunningham MD Abdomen X-Ray 03/22/17 Signed Impressions: Service Date/Time: Wednesday, March 22, 2017 07:00 - CONCLUSION: No findings characteristic of perforation. Nasogastric tube coiled within the fundus of the stomach. Emilio Snow MD Head CT 03/21/17 Signed Impressions: Service Date/Time: Tuesday, March 21, 2017 23:27 - CONCLUSION: Normal examination. Valerio Jerome MD Physical Exam HEENT: Normocephalic; atraumatic CHEST: Diminished at left, OETT to vent. CARDIAC: RRR ABDOMEN: Soft, nondistended, nontender; hepatosplenomegaly; bowel sounds faint EXTREMITIES: 2 + edema in upper extremities SKIN: Generalized pallor MS [employer] DBA: Sedated on vent (AmparulSukhjinderveda BATTER OUT) Assessment and Plan Plan ASSESSMENT: - CDiff colitis, Epid 027 (+). Pt on ampicillin for acinetobacter baumannii/ Haemol bacteremia. ID following. Flexiseal with dark green stool present. On Oral vanco and flagyl. 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 He has not been seen at the [facility] and 5-10 years secondary to financial issues. Unfortunately, he cannot make an appointment to follow up at [facility] until he makes a payment of $8,000 for an outstanding balance. The tells me charles there is no way she can make this payment and that she will have to "deal with that later." We did refer patient to [facility], but patient was declined secondary to having his transplant done at [facility] and they said that he would need to follow up at [facility]. 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 Similar histologic findings can also be seen in plasma cell rich rejection. Correlation with recent BILLY, ASMA, and serum IgG level is recommended. Typical features of acute cellular rejection are not seen. There is no evidence of chronic biliary tract disease or active steatohepatitis. Labs from January 28, 2017 revealed IgG total 3887, IgG1 2359, IgG3 57, IgG4 > 300.00. BILLY negative, ASMA negative. MELD 16. Spoke to Tiana Lo at [facility] to update on patient's condition and to see if he would able to be seen at their facility ([facility] has declined patient per our outpatient referral records). Per Tiana Lo, patient will not be able to be seen or make recommendations at [facility] until they have contacted Central Appointment Scheduling and settles outstanding balance. They cannot make recommendations , as they have not seen this patient since 2007 and would need to start the whole process over again and cannot do this until the outstanding balance is settled. LFTs remain stable with T. Bili 0.4, AST 29, ALT 19, ALk Phosph 81. - Anemia. Pt had drop in hgb 04/01 from 7.8/23.3----> 6.3/18.8. S/P 2 unit of prbc. 05/05.9 today. There was is no obvious blood loss. Tolerating TF. Flexiseal with dark green liquid stool. Will continue PPI and monitor for any signs of active bleeding. - Coagulopathy. Stable - Sepsis with multisystem failure. Pt with bandemia, UTI/PNA. Bronchial washings with no growth 48 hours, mycobacterial culture pending, fungal culture pending urine negative for legionella and streptococcus, urine cx (-), Bcx Acinetobacter Baumannii/Haemol, rpt with no growth. WBC 10.1. ID following, on Ampicillicin. Oral vanco, flagyl - Resp. Failure, HCAP. Abx, Nebs. Vent per CCM. Had acute onset of hypoxemia and respiratory distress this morning. CXR showed left-sided mucous plugging. Had bronchoscopy with evidence of significant LLL mucous plugging. Currently sedated on vent. - RAN with electrolyte abnormalities. Renal following, likely acute injury secondary to acute tubular necrosis r/t hypotension. Avoid nephrotoxins. Creat improved 1.66 - AMS. EEG with diffusely low recording, could be medication effect as the patient was on fentanyl. No hemisphere asymmetries are noted. No epileptiform or seizure activity seen. Currently sedated on vent. - Hx HTN, hyperlipidemia, BPH, per attending. 04-05-17 - H&H low but stable. no obvious bleeding reported, Flexiseal with dark green liquid stool. LFTs have been normal 04-06-17- drop in hgb today to 6.9, still no signs of bleeding. 2 units of blood ordered. Dark green liquid stools noted in Flexiseal 04-07-17- Stools out put decreasing, no signs of bleeding, Dark green liquid stools noted in Flexiseal HH today 9.1/27.3, s/p 2 units of blood yesterday PLAN: - TF as tolerated - Cont. Oral Vanco - Cont. Prograf - Cont. Xifaxan - Cont. PPI - Cont. to hold lactulose for diarrhea - Abx per ID recommendations - Monitor labs - Monitor stool output - Notify GI of any active bleeding - Supportive care - CCM following - ID following - Further recommendations to follow based on results of above - Of note, patient has been declined by [facility] secondary to having original transplant at [facility] - [facility] will not see patient or make recommendations until they have contacted the Central Appointment Office to resolve outstanding balance- aware. Patient seen and examined by Dr. Barnes and myself (Shelton Wolfe) Physician Comments Patient seen and examined Agree with above Continue with current supportive care Monitor labs (Pasha Barnes MD) Shelton Wolfe Apr 07, 2017 13:27 Pasha Barnes MD Apr 07, 2017 21:32
--- NOTE | 2017-04-07 17:24 | HHI.CCPN ---
Subjective Remarks/Hospital Course 67-year-old male with past medical history of primary sclerosing cholangitis with orthotopic liver transplant at [facility] in 2001, hypertension, atrial fibrillation status post ablation, hyperlipidemia, diabetes mellitus who presents to [facility] emergency department with altered mental status, fever, urinary incontinence. He was brought in by his . She states that this morning he was doing well and participated with home health physical therapy. When his returned home this evening she found him lethargic and minimally responsive. He had a cup full of mucus and when she inquired about it he stated that he had vomited. He refused ambulance transport. He had a temperature of 103 upon arrival to the emergency department. His states he told ED staff that he had experienced dysuria starting today. He has h/o BPH and UTI in the past. He has chronic low back pain. He denies headache or neck stiffness. His states he returned to his baseline mental status while in the ED and was conversant with her. He had no focal weakness and no witnessed seizure. His ED workup demonstrated U/a with moderate bacteria, 13 WBC, 2 RBC. White blood cell count was 14 with 9% bands, hemoglobin 10.5, platelets 135, AST 45, ALT 31, alkaline phosphatase 172, PT 12.3, INR 1.1 . Creatinine was 2.32 (baseline about 1.6-2), BUN 73, sodium 132 , potassium 5.2, bicarbonate 17 His initial lactic acid was 1.6. He was given Zosyn and 3 L NS bolus and admitted to the hospitalist service. He was complaining of chronic back pain and was anxious/agitated so was given Ativan 0.5 mg IV (chronically on Xanax). ED physician Dr. Orozco was called in because he became unresponsive and he was hypopneic with inadequate respirations. Sats were in the 60s. He complained to his that he could not see. He was hypotensive in 70s and post-intubation BP dropped to 60s/40s and [facility] was called. CVL was placed and he was started on levophed and vasopressin. He is awake on vent and answering questions yes/no. 03/22: patient in refractory distributive shock. I evaluated the patient multiple times throughout the day beginning around 0600 and at frequent intervals. Patient remains acidotic on maximal vasopressor therapy. I had discussions with Dr. Anaya with ID, cultures are growing out Acinetobacter. abx changed to tobra, vanc, meropenem, levaquin, unasyn. continued ivf resuscitation throughout the day guided by frequent IVC and cardiac echo. formal echo with grossly preserved LV function and mild RV dysfunction. but IVC continued to be collapsable. acute renal failure worsening and acidosis severe. started on bicarb drip. repeat CT abd/pelvis performed. I personally transported patient down to CT scanner given how severely unstable the patient was. Discussed with general surgery and interval CT scan is necessary to eval for intra-abdominal source of sepsis. interval CT without change. most likely Acinetobacter pneumonia with overwhelming septic shock. discussed with at length multiple times today regarding his life-threatening infection and his high risk of mortality. 03/23: vasopressors weaning down. patient waking up, following commands. still persistently acidotic, in multiorgan failure. renal dysfunction persists and oliguric. acinetobacter sensitivities not resulted. 03/24: off vasopressors. clinically beginning to improve. Acinetobacter is pansensitive. oliguria persists, but Cr stable and no current indication for acute HD. 03/25: went into afib RVR yesterday. given mgso4 and started aggressive forced diuresis with lasix drip at 20mg/hr. converted spontaneously back to NSR after only about 2 hours. This AM net -2.4L/24h. continues to make 200cc/hr uop. hemodynamics stable. very low-dose norepinephrine requirement. Cr stable, though RAN persists. 03/26: remains in afib, intermittently RVR. on diltiazem drip. Cr worse. uop declining. appears intravascularly dry. stopped lasix drip. wbc uptrending, but still appears nontoxic. 03/27 Afebrile, WBC 16.8 from 22k. Afib converted to sinus rhythm in 50s, discontinuing cardizem 5 mg/hr that is running. Creatinine steady at 2.75 ( previoulsy 2.8 <--2.81). UOP was in 70s this morning, now down to 50 cc/hr and 30 cc/hr. Positive fluid balance last 24 hours. Now CI 2.1 SVV 7, SVI 33. Glucose poorly controlled in 200s to 300s despite high does insulin sliding scale. Off vasopressors since this morning. 03/28 C diff positive. Started vancomycin po overnight. Tolerating tube feeds. A fib RVR in 130s this morning and initially hypotensive when went into Afib and levophed started but quickly weaned off. Restarting cardizem drip. BUN increased but creatinine relatively unchanged. UOP better with lasix yesterday and now edema slightly improved. Wean hydrocortisone. Glucose better after initiation of detemir but still 210. 03/29: Afebrile. Intermittently A. fib with RVR currently normal sinus rhythm. -4000 cc urine output has 24 hours. Arousable and intermittently following commands. 03/30: Afebrile. Intermittently in normal sinus rhythm/A. fib with RVR. Adequate prep. Increasing BUN and creatinine noted. Arousable on the ventilator and will follow commands. Tolerate CPAP 1 hour so far today. Positive BM. Increased residuals from tube feeding noted ~ 400 cc 03/31: Currently afebrile. On PSV trial since 08:40. Tolerating tube feeds at goal rate. Back in A. fib with RVR cards drip at 10 mg an hour. Started on normal saline for gentle hydration. Arousable and following commands. 04/01: Currently afebrile. On PSV trials. Tolerating tube feeds at goal. requesting palliative care consult for goals of care. She does not desire trach at this time. 04/02: Afebrile. On ventilator overnight. Received PRBCs overnight and IV fluids adjusted due to hemoglobin 6.3 and sodium 152. No active bleeding noted. Arousable the ventilator will follow commands. Tolerating PSV trials 4 hours yesterday. 04/03: afebrile, awake, alert this morning. on PSV. sodium still 153 despite free water replacement. BUN still significantly elevated. hgb stable at 7. no active bleeding. Cr downtrending slightly. Subjective: 04/04: yesterday passed SBT, but traveled to MRI and was fatigued at the end of the day. This morning, had acute onset of hypoxemia and respiratory distress. CXR with evidence of left-sided mucous plugging. Obtained bronch with evidence of significant LLL mucous plugging. repeat BAL from LLL sent. FK level downtrending to 4.2 on 04/03. 04/05: The patient remain on CPAP trials today on Precedex infusion successfully for several hours. Tentative plans for a trial of extubation with discussion with the near future in conjunction with palliative care team, regarding goals of care. 04/06: Attempted to CPAP trial this morning, unsuccessful after 15 minutes. Patient was noted to be severely anemic repeat hemoglobin showed 6.9, patient being transfused 2 units of packed cells this a.m.. Repeat CT of the brain ordered secondary to MRI imaging showing hygromas. Extensive discussion with palliative care team, and spouse regarding a trial of extubation, if patient meets criteria with CPAP trials vs. possible withdrawal. 04/07: No acute events overnight. ETT to be advanced 2 cm to 26 cm @ the lip. Repeat CT brain pending. No changes regarding goals of care. Objective Vital Signs Date Time Temp Pulse Resp B/P Pulse Ox O2 Delivery O2 Flow Rate FiO2 04/07/17 15:34 92 85 04/07/17 06:00 71 04/07/17 04:00 100.0 132/73 136/52 04/07/17 00:00 18 Intake and Output 04/06/17 04/06/17 04/06/17 07:59 15:59 23:59 Intake Total 1547 ml 1416 ml 2052 ml Output Total 725 ml 1150 ml 550 ml Balance 822 ml 266 ml 1502 ml Result Diagram: 04/07/17 0330 04/07/17 0330 Other Results Laboratory Tests Test 04/07/17 06:18 Blood Gas Puncture Site ART LINE Blood Gas Patient Temperature 98.6 Blood Gas HCO3 21 mmol/L (22-26) Blood Gas Base Excess -3.3 mmol/L (-2-2) Blood Gas Oxygen Saturation 94 % (90-100) Arterial Blood pH 7.37 (7.380-7.420) Arterial Blood Partial 37 mmHg (38-42) Pressure CO2 Arterial Blood Partial 85 mmHg Pressure O2 (61-120) Arterial Blood Oxygen Content 18.5 Vol % (12.0-20.0) Arterial Blood 1.5 % (0-4) Carboxyhemoglobin Arterial Blood Methemoglobin 1.1 % (0-2) Blood Gas Hemoglobin 13.9 G/DL (12.0-16.0) Oxygen Delivery Device VENT Blood Gas Ventilator Setting SEE COMMENTS Blood Gas Inspired Oxygen 100 % Imaging Last Impressions Chest X-Ray 04/02/17 0600 Signed Impressions: Service Date/Time: Sunday, April 02, 2017 03:55 - CONCLUSION: 1. Bilateral lower lobe atelectasis versus pneumonia. Bilateral effusions There has been no significant change when compared to the prior exam. Arpit Contreras MD Upper Extremity Ultrasound 03/29/17 Signed Impressions: Service Date/Time: Wednesday, March 29, 2017 11:02 - CONCLUSION: Small amount of thrombus in the left cephalic vein and the left basilic vein. Right upper extremity is unremarkable . Valerio Jerome MD Lower Extremity Ultrasound 03/29/17 Signed Impressions: Service Date/Time: Wednesday, March 29, 2017 10:40 - CONCLUSION: Normal examination. Valerio Jerome MD Abdomen Ultrasound 03/22/172122 Signed Impressions: Service Date/Time: Wednesday, March 22, 2017 08:14 - CONCLUSION: 1. Mild diffusely heterogeneous transplant liver echotexture with small amount of volume loss. No definitive evidence for portal venous gas or significant pneumobilia by ultrasound exam. However, examination was not specifically tailored for extended interrogation of the hepatic vasculature. 2. No sonographic evidence for intra-or extrahepatic ductal dilatation. 3. Trace ascites and small bilateral pleural effusions. Everton Cruz MD Chest CT 03/22/17 Signed Impressions: Service Date/Time: Wednesday, March 22, 2017 15:37 - CONCLUSION: There is ascites and bilateral pleural effusion and worsening left lung consolidation. Indu Cunningham MD Abdomen/Pelvis CT 03/22/17 Signed Impressions: Service Date/Time: Wednesday, March 22, 2017 15:40 - CONCLUSION: Increase in ascites and mesenteric congestion since the prior exam. Indu Cunningham MD Abdomen X-Ray 03/22/17 Signed Impressions: Service Date/Time: Wednesday, March 22, 2017 07:00 - CONCLUSION: No findings characteristic of perforation. Nasogastric tube coiled within the fundus of the stomach. Emilio Snow MD Head CT 03/21/17 Signed Impressions: Service Date/Time: Tuesday, March 21, 2017 23:27 - CONCLUSION: Normal examination. Valerio Jerome MD Objective Remarks GENERAL: Chronically ill-appearing 67-year-old male, critically ill, semi-recombinant in bed. SKIN: Warm and dry. Stage I sacral decubitus ulcer stable HEAD: Atraumatic. Normocephalic. EYES: Pupils equal and round, 2 mm and reactive bilaterally. No scleral icterus. No injection or drainage. ENT: Mucous membranes pink and moist. Oropharynx without erythema or exits. NECK: Trachea midline. No apparent JVD. CARDIOVASCULAR: RRR. sinus by tele this morning. RESPIRATORY: Normal chest excursion. Diminished breath sounds in all basis GASTROINTESTINAL: Abdomen overall soft, non-tender, nondistended. Fecal containment device in situ : Mcpherson in place with light yellow urine output. Positive mild to moderate scrotal edema MUSCULOSKELETAL: There is muscular atrophy involving bilateral hands. Dependent edema and elbows of bilateral upper extremities. There is trace pedal edema. NEUROLOGICAL: Eyes open and makes eye contact. Nods and shakes head to simple question. GCS 11 T , was extremities 4, follows commands Procedures 04/07-CT brain Date of Insertion: Mar 29, 2017 Line: Central Venous Catheter Side: Right Location: Subclavian A/P Assessment and Plan Assessment: 67yM s/p prior OLTx in 2001 now admitted with Acinetobacter septic shock and virulent strain C. Difficile colitis, with persistent multiorgan system dysfunction despite long aggressive therapy. Some organs have slight improvement, although overall prognosis is guarded. New acute hypoxic respiratory failure likely secondary to mucous plugging. Free water replacement. Weaning trials initiated, with tentative plan for trial of extubation in coordination with family. NEURO/PSYCH: Acute Vision change- resolved. Acute metabolic encephalopathy- resolving. Peripheral neuropathy Chronic benzodiazepine use Chronic narcotic use Cataracts Dexmedetomidine and fentanyl infusion for sedation and vent/ett tolerance, ventilator synchrony 04/05-propofol infusion discontinued Goal of RASS 0 Daily sedation vacation Per prior notes, patient reported to that he could not see before intubation. ?secondary to profound hypotension and hypoperfusion. Pupils reactive, nodding head peripherally to 1-[address] brain 03/21 revealed no acute intracranial findings 04/04 MRI brain-bilateral subdural fluid collections likely hygroma. No midline shift or mass effect. No acute infarction. There is some minimal acute hemorrhage in the left subdural fluid collection measuring 10 mm on the left and 6 mm on the right 04/06: Repeat CT brain ordered follow-up results, performed on the EEG 03/22: severe slowing, no epileptiform activity Hold gabapentin 300 mg by mouth 3 times a day. Hold alprazolam 0.5 mg every 8 hours when necessary Oxycodone liquid 5 mg every 4 hours PRN for pain RESP: Acute hypoxic and hypercarbic respiratory failure- acutely worsening this morning. History of tobacco abuse Acute healthcare associated left lower lobe pneumonia PRVC 550/18/12/50% s/p bronch 04/04 urgently with LLL mucous plugging with thick purulent secretions. continue elevated PEEP at 12. could consider repeat SBT this afternoon if he clinically improves. Ventilator bundle Albuterol/ipratropium nebulizers every 6 hours. Albuterol nebulizers every [address] chest 03/21 - dense consolidation of LLL with air bronchograms. Bronchoscopy with BAL lingula 03/22 - no growth to date SBT as clinically indicated as above CXR 04/02 reveals bilateral infiltrates and bilateral pleural effusions. CV: Septic shock with multi system organ failure- resolved History of atrial fibrillation status post ablation currently intermittent A fib RVR now in normal sinus rhythm History of hypertension Hyperlipidemia Evaluated by Dr. Lovell who has recommended maintenance Cardizem to 90 q6. Initial troponin 0.03, mild increase to 0.06 is likely related to sepsis. Echo from 01/23/17 - +LVH, EF 60-65%. No regional wall motion abnormalities. Left atrial dilation. Echo 03/22- preserved LV function, mild RV dysfunction. collapsable IVC. Hold medications amlodipine 10 mg daily for hypertension on vasopressors, atorvastatin 40 mg daily for dyslipidemia with elevated LFTs, spironolactone 25 mg daily with acute kidney injury. Not ideal case for resumption for sotalol 80 mg twice a day/home medication Received IV Lasix 40 mg IV twice a day previously. This currently on hold due to elevated BUN/creatinine. GI: History of orthotopic liver transplant 2001 (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 difficile Hypoalbuminemia Patient currently Glucerna 1.5@60 cc an hour/currently at goal Metoprolol 40 mg IV twice a day Patient has been followed by Dr. Mallory as outpatient. He has not been able to follow closely with [facility] due to financial reasons. states he has Prograf levels done at [facility] and [facility] [place] [facility]. She states he has been referred to [facility] for possible repeat transplant due to plasma cell hepatitis but has not had followup appointment yet. Per GI notes, patient was refused for liver transplant at [facility] due to prior association with [place]. Prograf level currently downtrending to 4.7. Increase FK dose to 2mg po BID, recheck daily levels at 08:30am. CT abd/pelvis 03/21non-contrast - pneumobilia, fecal impaction, no free air or fluid. repeat CT abd pelvis 03/22: no change. Patient known to Dr. Mallory. GI has signed off for now, reconsult if needed. On Xifaxan 550 twice a day and lactulose 30 cc twice a day. UROLOGY: BPH Hold Proscar 5 milligrams daily Flomax 0.4 mg daily in light of hypotension. Resume when clinically indicated Maintain Mcpherson catheter FEN/RENAL: Acute on chronic kidney injury- persistent. Acute Uremia Persistent Hypernatremia Hypokalemia Hyperphosphatemia Monitor intake and output hourly. Monitor electrolytes and replace as indicated. Urine eosinophils negative 03/24. Avoid nephrotoxic drugs Nephrology following Dr. Mejía. Continue free water to 300cc q4h. Continue D5W@ 50cc/hr. hypernatremia resolved sodium level 148, continue to monitor PhosLo 667 mg by mouth 3 times a day phosphorus binder. recheck daily electrolytes, including phos. ID: Septic shock-resolved LLL HCAP- Acinetobacterbaummini bacteremia C difficile diarrhea d/c Unasyn today. Vancomycin 500 po qid 03/29 and IV Flagyl 500 mg every 8 hours started for C. difficile 027 positive ID following: Dr. Anaya. HEME: Leukocytosis- resolved. Chronic normocytic anemia Acute on chronic Thrombocytopenia Left cephalic/basilic superficial thrombus Monitor CBC daily monitor trends. Preliminary bilateral upper extremity Dopplers revealed left cephalic/basilic superficial thrombus. Treated with DVT prophylaxis Tranfuse for hemoglobin less than 7 ENDO: Diabetes mellitus Hyperglycemia Insulin Detemir 15 units subcutaneous q12. Currently on sliding scale insulin/high regimen every 4 hours s/p stress dose steroids. PROPH: SCDs. Continue heparin 5000 units subcutaneous twice a day Pantoprazole 40 mg IV twice a day ACCESS: Right subclavian central venous line placed 03/29 # 8. Left radial art line 7/17 #8 Dispo: Level 3. Discussed with [employer]IST at bedside Physician Blaire Kemp MD Apr 07, 2017 17:24 This patient remains critically ill with one or more organ systems which are or may become a threat to life. I have spent in excess of 45 minutes discontinuously in the care and management of this patient. This time is exclusive of procedures, and includes, but is not limited to, evaluation of the patient, review of the medical record, discussions with family, consultants, nursing staff, or respiratory therapy, and documentation in the medical record. Physician Blaire Kepm MD Apr 07, 2017 17:24
--- NOTE | 2017-04-07 17:36 | RADRPT ---
EXAM DATE/TIME: 04/07/2017 17:02 [facility] COMPARISON: MRI BRAIN W/O CONTRAST, April 03, 2017, 14:38. CT BRAIN W/O CONTRAST, March 21, 2017, 23:27. INDICATIONS : F/U hygromas. RADIATION DOSE: 35.58 CTDIvol (mGy) MEDICAL HISTORY : Cardiovascular disease. Hypertension. A-fib SURGICAL HISTORY : Liver transplant, Ablation ENCOUNTER: Subsequent ACUITY: 2 weeks PAIN SCALE: 0/10 LOCATION: cranial TECHNIQUE: Multiple contiguous axial images were obtained of the head. Using automated exposure control and adj ustment of the mA and/or kV according to patient size, radiation dose was kept as low as reasonably a chievable to obtain optimal diagnostic quality images. DICOM format image data is available electro nically for review and comparison. FINDINGS: There has been no significant change in the size or appearance of the subdural collections along the frontal regions bilaterally measuring 9 mm on the left and 5 mm on the right. No midline shift is no isaura. Underlying cerebral atrophy is noted. No acute infarct or acute intraaxial bleed is noted. CONCLUSION: 1. No significant change in the appearance of the bilateral frontal subdural collections measuring 9 mm on the left and 5 mm on the right. 2. Underlying cerebral atrophy. Ruddy Her MD on April 07, 2017 at 17:16 Board Certified Radiologist. This report was verified electronically.
[2017-04-07] MEDS ORDERED: hydrALAZINE HCL 20 MG/ML VIAL ONE (18:06)
[2017-04-07] MEDS ORDERED: LORazepam 2 MG/ML VIAL IV PUSH ONE (18:30)
[2017-04-07] MEDS ORDERED: hydrALAZINE HCL 20 MG/ML VIAL IV ONE (19:00)
[2017-04-07 19:38] LABS: BLOOD GAS BASE EXCESS -4.1 mmol/L (-2-2); BLOOD GAS CARBOXYHEMOGLOBIN 1.4 % (0-4); BLOOD GAS HCO3 21 mmol/L (22-26); BLOOD GAS METHEMOGLOBIN 1.3 % (0-2); BLOOD GAS O2 HGB SATURATION 88 % (90-100); BLOOD GAS PCO2 44 mmHg (38-42); BLOOD GAS PO2 63 mmHg (61-120); BLOOD GAS TOTAL HGB 14.6 G/DL (12.0-16.0); TEMP CORR TO 98.6
[2017-04-07 19:39] LABS: CRITICAL VALUE YES; OXYGEN DEVICE VENT
[2017-04-07 19:40] LABS: DRAW SITE ART LINE; FIO2 100 %; STAT NO; ULNAR PULSE PRESENT; VENT SETTINGS SEE COMMENTS
--- NOTE | 2017-04-07 19:41 | HHI.NPPN ---
Subjective History of Present Illness 67-year-old male with past medical history of liver transplant in 2001, hypertension, atrial fibrillation, hyperlipidemia, diabetes mellitus, history of atrial fibrillation with ablation, chronic kidney disease was admitted on March 19 because of a lethargy and decreased responsiveness. I was called due to decrease urine out put and increasing Creatinine. Additional Remarks Patient on the vent, on sedation, clinically same. Objective Data Data 04/06/17 04/07/17 18:59 06:59 Intake Total 2102 ml 2507 ml Output Total 1150 ml 1150 ml Balance 952 ml 1357 ml IV Total 689 ml 1839 ml Tube Feeding 127 ml 668 ml Packed Cells 686 ml Other 600 ml Output Urine Total 1000 ml 1100 ml Stool Total 150 ml 50 ml Vital Signs Date Time Temp Pulse Resp B/P Pulse Ox O2 Delivery O2 Flow Rate FiO2 04/07/17 16:00 98 100 04/07/17 15:34 92 85 04/07/17 11:13 98 60 04/07/17 07:51 94 60 04/07/17 06:00 71 04/07/17 04:00 77 04/07/17 04:00 100.0 77 132/73 96 136/52 04/07/17 04:00 100 04/07/17 03:07 92 100 04/07/17 02:00 94 04/07/17 00:05 94 50 04/07/17 00:00 50 04/07/17 00:00 71 04/07/17 00:00 98.7 71 18 146/78 91 148/56 04/06/17 22:00 65 04/06/17 22:00 65 04/06/17 20:55 96 50 04/06/17 20:00 50 04/06/17 20:00 63 04/06/17 20:00 98.5 63 18 127/72 88 135/54 -: 04/07/17 0330 04/07/17 0330 Physical Exam General Appearance Remarks Intubated and sedated. Eyes Eye Exam: Pupils Equal Throat Throat Exam: Oral Mucosa Maurice & Moist Pulmonary Resp Exam: Crackles, Rhonchi, Decreased Bases, Diminished Breath Sounds Cardiology CV Exam: Regular, Normal Sinus Rhythm Gastrointestinal/Abdomen GI Exam: Soft, Non-Tender, Bowel Sounds Present Extremeties Extremities Exam: Trace Edema Neurologic Neuro Exam: Sedated Assessment/Plan Assessment Summary: RAN/Acute Renal Failure, CKD Stage III Problem List: (1) Atrial fibrillation with RVR (2) Respiratory failure (3) Shortness of breath (4) PNA (pneumonia) (5) CHF (congestive heart failure) (6) Anemia (7) Acute on chronic kidney disease, stage 3 (8) ARN (acute kidney injury) Plan Patient has chronic kidney disease and develop RAN. Patient has good urine out put. Continue gentle hydration. Continue antibiotics. Avoid Nephrotoxins. Creatinine is stable. Weaning as tolerated. Problem Qualifiers (1) Respiratory failure: Qualified Code: J96.01 - Acute respiratory failure with hypoxia Sunil Maya MD Apr 07, 2017 19:41
[2017-04-07] MEDS ORDERED: PROPOFOL 1000 MG/100 ML INJ 100 ML ONE (21:11)
[2017-04-08] VITALS (32 sets, daily range): BP systolic 92–121; BP diastolic 47–73; PULSE 60–66; RESP 18–20; TEMP 98.2–99.1; O2SAT 96–100
[2017-04-08] MEDS: PROPOFOL 1000 MG/100 ML IV SCH ×5 (00:26→22:53)
[2017-04-08] MEDS: fentaNYL DRIP 250 ML IV SCH ×2 (00:26→05:39)
[2017-04-08] MEDS: DEXMEDETOMIDINE INJ 1,000 MCG in SODIUM CHLOR 0.9% 250 ML INJ 240 ML IV SCH ×3 (01:25→22:20)
[2017-04-08] MEDS: DILTIAZEM HCL 90 MG TAB PO SCH ×4 (02:08→18:21)
[2017-04-08] MEDS: HIGH DOSE INSULIN NOVOLIN REGULAR SUPPLEMENTAL SCALE SQ SCH ×6 (04:00→20:00)
[2017-04-08] MEDS: FREE WATER G-TUBE SCH ×6 (04:00→20:00)
[2017-04-08] MEDS: CHLORHEXIDINE GLUCONATE 2 % 1 PACK (2 CLOTHS) TOP SCH (04:00)
--- NOTE | 2017-04-08 06:19 | RADRPT ---
EXAM DATE/TIME: 04/08/2017 04:10 [facility] COMPARISON: CHEST SINGLE AP, April 07, 2017, 3:21. INDICATIONS : Respiratory failure. MEDICAL HISTORY : Hypertension. Hepatitis C. SURGICAL HISTORY : None. ENCOUNTER: Subsequent ACUITY: 2 weeks PAIN SCORE: Non-responsive. LOCATION: Bilateral chest FINDINGS: Portable AP view of the chest demonstrates a normal size cardiac silhouette. ETT remains high in the trachea. Nasogastric tube has been removed. Right subclavian central line remains present. There is a stable right lung airspace consolidation with pleural based opacity. Stable left lung base airspace consolidation is also present. There is no pneumothorax. CONCLUSION: Stable right pleural-based opacity and bilateral lung airspace consolidation. Vin Montero MD on April 08, 2017 at 6:17 Board Certified Radiologist. This report was verified electronically.
[2017-04-08] MEDS: CHLORHEXIDINE 0.12% (ORAL KIT) 15 ML CUP MT SCH ×2 (08:00→20:41)
[2017-04-08] MEDS: TACROLIMUS 1 MG CAP PO SCH ×2 (08:17→18:21)
[2017-04-08 08:26] LABS: HEMATOCRIT 23.9 % (39.0-51.0); MEAN CELL VOLUME 87.6 FL (80.0-100.0); MEAN CORPUSCULAR HEMOGLOBIN 29.6 PG (27.0-34.0); MEAN CORPUSCULAR HGB CONC 33.8 % (32.0-36.0); PLATELET COUNT 84 TH/MM3 (150-450); RED BLOOD COUNT 2.73 MIL/MM3 (4.50-5.90); WHITE BLOOD COUNT 6.1 TH/MM3 (4.0-11.0)
[2017-04-08 08:35] LABS: REVIEW FLAG AUTO DIFF
[2017-04-08] MEDS: INSULIN DETEMIR 100 UNITS/ML VIAL SQ SCH ×2 (08:39→22:06)
[2017-04-08 08:43] LABS: BICARBONATE 23.2 MEQ/L (21.0-32.0)
[2017-04-08] MEDS: DOCUSATE SODIUM 50 MG/SENNA 8.6 MG TAB PO SCH ×2 (10:19→22:08)
[2017-04-08] MEDS: CALCIUM ACETATE 667 MG CAP PO SCH ×3 (10:19→18:21)
[2017-04-08] MEDS: RIFAXIMIN 550 MG TAB OG-TUBE SCH ×2 (10:19→22:08)
[2017-04-08] MEDS: FOLIC ACID 1 MG TAB PO SCH ×2 (10:19→21:00)
[2017-04-08] MEDS: HEPARIN SODIUM - SQ 10,000 UNITS/ML VIAL SQ SCH ×2 (10:19→22:07)
[2017-04-08] MEDS: PANTOPRAZOLE SODIUM 40 MG VIAL IV SCH ×2 (10:19→22:07)
[2017-04-08] MEDS: CHOLECALCIFEROL (VIT D3) 1000 UNIT TAB PO SCH ×2 (10:19→22:07)
[2017-04-08] MEDS: VANCOMYCIN 500 MG VIAL (FOR ORAL USE ONLY) PO SCH ×4 (10:19→22:07)
[2017-04-08] MEDS: SODIUM CHLORIDE 0.9% FLUSH 10 ML FLUSH IV FLUSH SCH ×2 (10:20→20:41)
[2017-04-08] MEDS: DEXTROSE 50% IN WATER 50 ML VIAL(D50) IV PUSH PRN (11:50)
[2017-04-08] MEDS ORDERED: DEXTROSE 50% IN WATER 50 ML SYRINGE ONE (11:52)
[2017-04-08] MEDS: DEXTROSE 5% IN WATE 1000ML INJ 1,000 ML IV SCH (11:57)
--- NOTE | 2017-04-08 16:40 | HHI.IDPN ---
Subjective Subjective Remarks Dw Dr Castrejon - pt clinically deteriorated; family weighin in on hospice no longer tolerating CPAP back on PEEP 8, FiO2 80 % no fever, but had a low grade temp 2 days ago X1 normal WBC Admission weight nearly doubled 89 kg to 130 kg Antibiotics po vanco Allergies: Coded Allergies: *MDRO Multi-Drug Resistant Organism (Verified Adverse Reaction, Unknown, ) MRSA (heel wound) - 07/23/16 MRSA PCR Screen POSITIVE-03/22/17 Objective . Vital Signs Date Time Temp Pulse Resp B/P Pulse Ox O2 Delivery O2 Flow Rate FiO2 04/08/17 16:00 98.5 60 19 102/63 99 112/54 04/08/17 16:00 100 04/08/17 14:07 98 80 04/08/17 12:00 100 04/08/17 12:00 99.1 65 20 114/68 99 119/53 04/08/17 10:28 97 80 04/08/17 08:00 100 04/08/17 08:00 98.6 61 18 99/62 98 110/54 04/08/17 06:00 60 04/08/17 04:34 96 80 04/08/17 04:00 80 04/08/17 04:00 60 04/08/17 04:00 98.2 60 18 94/60 98 102/53 04/08/17 02:42 96 80 04/08/17 02:00 63 04/08/17 00:00 90 04/08/17 00:00 98.9 63 18 102/67 97 98/49 04/08/17 00:00 63 04/07/17 23:59 97 90 04/07/17 22:00 64 04/07/17 21:03 93 100 04/07/17 20:00 79 04/07/17 20:00 99.1 79 18 114/71 88 130/57 04/07/17 20:00 100 04/07/17 18:00 83 04/07/17 04/07/17 04/08/17 14:59 22:59 06:59 Intake Total 3041 ml 1253 ml Output Total 1300 ml 225 ml Balance 1741 ml 1028 ml IV Total 2138 ml 712 ml Tube Feeding 603 ml 241 ml Other 300 ml 300 ml Output Urine Total 1000 ml 125 ml Stool Total 300 ml 100 ml . Laboratory Tests Test 04/06/17 04/07/17 04/08/17 18:45 03:30 07:10 White Blood Count 9.3 TH/MM3 8.8 TH/MM3 6.1 TH/MM3 Red Blood Count 3.18 MIL/MM3 3.12 MIL/MM3 2.73 MIL/MM3 Hemoglobin 9.1 GM/DL 9.1 GM/DL 8.1 GM/DL Hematocrit 27.7 % 27.3 % 23.9 % Mean Corpuscular Volume 87.3 FL 87.8 FL 87.6 FL Mean Corpuscular Hemoglobin 28.7 PG 29.3 PG 29.6 PG Mean Corpuscular Hemoglobin 32.9 % 33.4 % 33.8 % Concent Red Cell Distribution Width 15.8 % 16.2 % 16.0 % Platelet Count 100 TH/MM3 106 TH/MM3 84 TH/MM3 Mean Platelet Volume 8.9 FL 8.4 FL 8.7 FL Neutrophils (%) (Auto) 80.2 % Lymphocytes (%) (Auto) 12.4 % Monocytes (%) (Auto) 5.2 % Eosinophils (%) (Auto) 1.8 % Basophils (%) (Auto) 0.4 % Neutrophils # (Auto) 7.4 TH/MM3 Lymphocytes # (Auto) 1.1 TH/MM3 Monocytes # (Auto) 0.5 TH/MM3 Eosinophils # (Auto) 0.2 TH/MM3 Basophils # (Auto) 0.0 TH/MM3 CBC Comment DIFF FINAL Differential Comment Laboratory Tests Test 04/07/17 04/08/17 03:30 07:10 Sodium Level 149 MEQ/L 146 MEQ/L Potassium Level 4.0 MEQ/L 4.0 MEQ/L Chloride Level 116 MEQ/L 114 MEQ/L Carbon Dioxide Level 27.7 MEQ/L 23.2 MEQ/L Anion Gap 5 MEQ/L 9 MEQ/L Blood Urea Nitrogen 62 MG/DL 57 MG/DL Creatinine 1.42 MG/DL 1.56 MG/DL Estimat Glomerular Filtration 50 ML/MIN 45 ML/MIN Rate Random Glucose 96 MG/DL 83 MG/DL Calcium Level 8.1 MG/DL 8.0 MG/DL Phosphorus Level 3.0 MG/DL Magnesium Level 1.9 MG/DL Imaging Last Impressions Chest X-Ray 04/08/17 0600 Signed Impressions: Service Date/Time: March 04:10 - CONCLUSION: Stable right pleural-based opacity and bilateral lung airspace consolidation. iVn Montero MD Head CT 04/06/17 Signed Impressions: Service Date/Time: Friday, April 07, 2017 17:02 - CONCLUSION: 1. No significant change in the appearance of the bilateral frontal subdural collections measuring 9 mm on the left and 5 mm on the right. 2. Underlying cerebral atrophy. Ruddy Her MD Brain MRI 04/03/17 Signed Impressions: Service Date/Time: Monday, April 03, 2017 14:38 - CONCLUSION: 1. Bilateral subdural fluid collections likely hygromas although there is some minimal acute hemorrhage in the left subdural fluid collection measuring 10 mm on the left and 6 mm on the right. No midline shift or mass effect. Noncontrast CT brain recommended. 2. Minimal nonspecific white matter changes. 3. No acute infarction. Medhat Cevallos MD Upper Extremity Ultrasound 03/29/17 Signed Impressions: Service Date/Time: Wednesday, March 29, 2017 11:02 - CONCLUSION: Small amount of thrombus in the left cephalic vein and the left basilic vein. Right upper extremity is unremarkable . Valerio Jerome MD Lower Extremity Ultrasound 03/29/17 Signed Impressions: Service Date/Time: Wednesday, March 29, 2017 10:40 - CONCLUSION: Normal examination. Valerio Jerome MD Abdomen Ultrasound 03/22/172122 Signed Impressions: Service Date/Time: Wednesday, March 22, 2017 08:14 - CONCLUSION: 1. Mild diffusely heterogeneous transplant liver echotexture with small amount of volume loss. No definitive evidence for portal venous gas or significant pneumobilia by ultrasound exam. However, examination was not specifically tailored for extended interrogation of the hepatic vasculature. 2. No sonographic evidence for intra-or extrahepatic ductal dilatation. 3. Trace ascites and small bilateral pleural effusions. Everton Cruz MD Chest CT 03/22/17 Signed Impressions: Service Date/Time: Wednesday, March 22, 2017 15:37 - CONCLUSION: There is ascites and bilateral pleural effusion and worsening left lung consolidation. Indu Cunningham MD Abdomen/Pelvis CT 03/22/17 Signed Impressions: Service Date/Time: Wednesday, March 22, 2017 15:40 - CONCLUSION: Increase in ascites and mesenteric congestion since the prior exam. Indu Cunningham MD Abdomen X-Ray 03/22/17 0000 Signed Impressions: Service Date/Time: Wednesday, March 22, 2017 07:00 - CONCLUSION: No findings characteristic of perforation. Nasogastric tube coiled within the fundus of the stomach. Emilio Snow MD Physical Exam CONSTITUTIONAL/GENERAL: This is an adequately nourished patient, in no apparent distress. TUBES/LINES/DRAINS: SKIN: no jaundice, rashes, or lesions. Skin temperature appropriate.Non diaphoretic. EYES: Pupils reactive . + minimal scleral icterus. No injection or drainage. Fundi not examined. NECK: Trachea midline. CARDIOVASCULAR: Regular rate and rhythm + 3/6 syst murmur, no gallops, or rubs. No JVD. Periphery is poorly perfused RESPIRATORY/CHEST: Symmetric, respirations. B/l rhonchi. GASTROINTESTINAL: Abdomen soft, mildly tender palpation, + moderately distended. No hepato-splenomegaly, or palpable masses. No guarding. Bowel sounds present. Liquid brown stool in [place] bag GENITOURINARY: Without palpable bladder distension. Mcpherson catheter in place with clear yellow urine MUSCULOSKELETAL: Extremities without clubbing, + edema no cyanosis . No mottling or clubbing. NEUROLOGICAL unresponsive not opening eyes not following commnads PSYCHIATRIC: unable to assess Assessment & Plan Remarks Sepsis, septic shock, Acinetobacter chávez S - resolved Source is likley bacteremiic gram negative PNA / Acinetobacter : - resolved; last sputum, cl x with nl resp james Acute VDRF, no longer tolerates wening - pt is markedly fluid overloaded ARF on CKD: no e/o interst nephritis - stable Immunosuppressed, sp liver transplant Critically ill, unstable again from resp [place] Severe leukocytosis with leukemoid reaction: resolved hypervirulent C.diff, severe - improving I think the most curent respiratory set back from severe fluid overload: arnol Castrejon No fever or leukocytosis to suspect PNA BAL from 04/04 showed no WBC on the G stain REC's: complete vanco as scheduled thri Apr 13 chk sputum clx avoid systemic abx unless proven or highly suspected infx Celestina Garcia Dr, MD Apr 08, 2017 16:40
--- NOTE | 2017-04-08 18:33 | HHI.NPPN ---
Subjective History of Present Illness 67-year-old male with past medical history of liver transplant in 2001, hypertension, atrial fibrillation, hyperlipidemia, diabetes mellitus, history of atrial fibrillation with ablation, chronic kidney disease was admitted on March 19 because of a lethargy and decreased responsiveness. I was called due to decrease urine out put and increasing Creatinine. Additional Remarks Patient remain intubated and sedated. Objective Data Data 04/07/17 04/08/17 19:00 07:00 Intake Total 1810 ml 2484 ml Output Total 1050 ml 475 ml Balance 760 ml 2009 ml IV Total 1304 ml 1546 ml Tube Feeding 506 ml 338 ml Other 600 ml Output Urine Total 750 ml 375 ml Stool Total 300 ml 100 ml Vital Signs Date Time Temp Pulse Resp B/P Pulse Ox O2 Delivery O2 Flow Rate FiO2 04/08/17 18:05 98 70 04/08/17 16:00 60 04/08/17 16:00 98.5 60 19 102/63 99 112/54 04/08/17 16:00 100 04/08/17 14:07 98 80 04/08/17 14:00 66 04/08/17 12:00 100 04/08/17 12:00 65 04/08/17 12:00 99.1 65 20 114/68 99 119/53 04/08/17 10:28 97 80 04/08/17 10:00 63 04/08/17 08:00 100 04/08/17 08:00 61 04/08/17 08:00 98.6 61 18 99/62 98 110/54 04/08/17 06:00 60 04/08/17 04:34 96 80 04/08/17 04:00 80 04/08/17 04:00 60 04/08/17 04:00 98.2 60 18 94/60 98 102/53 04/08/17 02:42 96 80 04/08/17 02:00 63 04/08/17 00:00 90 04/08/17 00:00 98.9 63 18 102/67 97 98/49 04/08/17 00:00 63 04/07/17 23:59 97 90 04/07/17 22:00 64 04/07/17 21:03 93 100 04/07/17 20:00 79 04/07/17 20:00 99.1 79 18 114/71 88 130/57 04/07/17 20:00 100 -: 04/08/17 0710 04/08/17 0710 Physical Exam General Appearance Remarks Intubated and sedated. Eyes Eye Exam: Pupils Equal Throat Throat Exam: Oral Mucosa [place] & Moist Pulmonary Resp Exam: Crackles, Rhonchi, Decreased Bases, Diminished Breath Sounds Cardiology CV Exam: Regular, Normal Sinus Rhythm Gastrointestinal/Abdomen GI Exam: Soft, Non-Tender, Bowel Sounds Present Extremeties Extremities Exam: Trace Edema Neurologic Neuro Exam: Sedated Assessment/Plan Assessment Summary: RAN/Acute Renal Failure, CKD Stage III Problem List: (1) Atrial fibrillation with RVR (2) Respiratory failure (3) Shortness of breath (4) PNA (pneumonia) (5) CHF (congestive heart failure) (6) Anemia (7) Acute on chronic kidney disease, stage 3 (8) RAN (acute kidney injury) Plan Patient has chronic kidney disease and develop RAN. urine out put decrease slightly. Continue gentle hydration. Continue antibiotics. Avoid Nephrotoxins. Creatinine is stable. Na. is improving. Problem Qualifiers (1) Respiratory failure: Qualified Code: J96.01 - Acute respiratory failure with hypoxia Sunil Maya MD Apr 08, 2017 18:33
--- NOTE | 2017-04-08 20:39 | HHI.CCPN ---
Subjective Remarks/Hospital Course 67-year-old male with past medical history of primary sclerosing cholangitis with orthotopic liver transplant at [facility] in 2001, hypertension, atrial fibrillation status post ablation, hyperlipidemia, diabetes mellitus who presents to [facility] emergency department with altered mental status, fever, urinary incontinence. He was brought in by his . She states that this morning he was doing well and participated with home health physical therapy. When his returned home this evening she found him lethargic and minimally responsive. He had a cup full of mucus and when she inquired about it he stated that he had vomited. He refused ambulance transport. He had a temperature of 103 upon arrival to the emergency department. His states he told ED staff that he had experienced dysuria starting today. He has h/o BPH and UTI in the past. He has chronic low back pain. He denies headache or neck stiffness. His states he returned to his baseline mental status while in the ED and was conversant with her. He had no focal weakness and no witnessed seizure. His ED workup demonstrated U/a with moderate bacteria, 13 WBC, 2 RBC. White blood cell count was 14 with 9% bands, hemoglobin 10.5, platelets 135, AST 45, ALT 31, alkaline phosphatase 172, PT 12.3, INR 1.1 . Creatinine was 2.32 (baseline about 1.6-2), BUN 73, sodium 132 , potassium 5.2, bicarbonate 17 His initial lactic acid was 1.6. He was given Zosyn and 3 L NS bolus and admitted to the hospitalist service. He was complaining of chronic back pain and was anxious/agitated so was given Ativan 0.5 mg IV (chronically on Xanax). ED physician Dr. Orozco was called in because he became unresponsive and he was hypopneic with inadequate respirations. Sats were in the 60s. He complained to his that he could not see. He was hypotensive in 70s and post-intubation BP dropped to 60s/40s and [facility] was called. CVL was placed and he was started on levophed and vasopressin. He is awake on vent and answering questions yes/no. 03/22: patient in refractory distributive shock. I evaluated the patient multiple times throughout the day beginning around 0600 and at frequent intervals. Patient remains acidotic on maximal vasopressor therapy. I had discussions with Dr. Anaya with ID, cultures are growing out Acinetobacter. abx changed to tobra, vanc, meropenem, levaquin, unasyn. continued ivf resuscitation throughout the day guided by frequent IVC and cardiac echo. formal echo with grossly preserved LV function and mild RV dysfunction. but IVC continued to be collapsable. acute renal failure worsening and acidosis severe. started on bicarb drip. repeat CT abd/pelvis performed. I personally transported patient down to CT scanner given how severely unstable the patient was. Discussed with general surgery and interval CT scan is necessary to eval for intra-abdominal source of sepsis. interval CT without change. most likely Acinetobacter pneumonia with overwhelming septic shock. discussed with at length multiple times today regarding his life-threatening infection and his high risk of mortality. 03/23: vasopressors weaning down. patient waking up, following commands. still persistently acidotic, in multiorgan failure. renal dysfunction persists and oliguric. acinetobacter sensitivities not resulted. 03/24: off vasopressors. clinically beginning to improve. Acinetobacter is pansensitive. oliguria persists, but Cr stable and no current indication for acute HD. 03/25: went into afib RVR yesterday. given mgso4 and started aggressive forced diuresis with lasix drip at 20mg/hr. converted spontaneously back to NSR after only about 2 hours. This AM net -2.4L/24h. continues to make 200cc/hr uop. hemodynamics stable. very low-dose norepinephrine requirement. Cr stable, though RAN persists. 03/26: remains in afib, intermittently RVR. on diltiazem drip. Cr worse. uop declining. appears intravascularly dry. stopped lasix drip. wbc uptrending, but still appears nontoxic. 03/27 Afebrile, WBC 16.8 from 22k. Afib converted to sinus rhythm in 50s, discontinuing cardizem 5 mg/hr that is running. Creatinine steady at 2.75 ( previoulsy 2.8 <--2.81). UOP was in 70s this morning, now down to 50 cc/hr and 30 cc/hr. Positive fluid balance last 24 hours. Now CI 2.1 SVV 7, SVI 33. Glucose poorly controlled in 200s to 300s despite high does insulin sliding scale. Off vasopressors since this morning. 03/28 C diff positive. Started vancomycin po overnight. Tolerating tube feeds. A fib RVR in 130s this morning and initially hypotensive when went into Afib and levophed started but quickly weaned off. Restarting cardizem drip. BUN increased but creatinine relatively unchanged. UOP better with lasix yesterday and now edema slightly improved. Wean hydrocortisone. Glucose better after initiation of detemir but still 210. 03/29: Afebrile. Intermittently A. fib with RVR currently normal sinus rhythm. -4000 cc urine output has 24 hours. Arousable and intermittently following commands. 03/30: Afebrile. Intermittently in normal sinus rhythm/A. fib with RVR. Adequate prep. Increasing BUN and creatinine noted. Arousable on the ventilator and will follow commands. Tolerate CPAP 1 hour so far today. Positive BM. Increased residuals from tube feeding noted ~ 400 cc 03/31: Currently afebrile. On PSV trial since 08:40. Tolerating tube feeds at goal rate. Back in A. fib with RVR cards drip at 10 mg an hour. Started on normal saline for gentle hydration. Arousable and following commands. 04/01: Currently afebrile. On PSV trials. Tolerating tube feeds at goal. requesting palliative care consult for goals of care. She does not desire trach at this time. 04/02: Afebrile. On ventilator overnight. Received PRBCs overnight and IV fluids adjusted due to hemoglobin 6.3 and sodium 152. No active bleeding noted. Arousable the ventilator will follow commands. Tolerating PSV trials 4 hours yesterday. 04/03: afebrile, awake, alert this morning. on PSV. sodium still 153 despite free water replacement. BUN still significantly elevated. hgb stable at 7. no active bleeding. Cr downtrending slightly. Subjective: 04/04: yesterday passed SBT, but traveled to MRI and was fatigued at the end of the day. This morning, had acute onset of hypoxemia and respiratory distress. CXR with evidence of left-sided mucous plugging. Obtained bronch with evidence of significant LLL mucous plugging. repeat BAL from LLL sent. FK level downtrending to 4.2 on 04/03. 04/05: The patient remain on CPAP trials today on Precedex infusion successfully for several hours. Tentative plans for a trial of extubation with discussion with the near future in conjunction with palliative care team, regarding goals of care. 04/06: Attempted to CPAP trial this morning, unsuccessful after 15 minutes. Patient was noted to be severely anemic repeat hemoglobin showed 6.9, patient being transfused 2 units of packed cells this a.m.. Repeat CT of the brain ordered secondary to MRI imaging showing hygromas. Extensive discussion with palliative care team, and spouse regarding a trial of extubation, if patient meets criteria with CPAP trials vs. possible withdrawal. 04/07: No acute events overnight. ETT to be advanced 2 cm to 26 cm @ the lip. Repeat CT brain pending. No changes regarding goals of care. 04/08: Attempts made to contact Mrs. Sánchez regarding discussion of tracheostomy and PEG placement. She and the patient has stated previously that he would not want a tracheostomy. The ETT has been in place for 18 days, tentative plans for compassionate withdrawal have not been made with resolution. Attempts made to discuss further plan for tracheostomy at this time unsuccessful. Overnight the patient required propofol Precedex and fentanyl infusion secondary to agitation, and ventilator dyssynchrony. Fentanyl has been discontinued. Repeat CT scan revealed no changes from initial MRI. Objective Vital Signs Date Time Temp Pulse Resp B/P Pulse Ox O2 Delivery O2 Flow Rate FiO2 04/08/17 18:05 98 70 04/08/17 18:00 60 04/08/17 16:00 98.5 19 102/63 112/54 Intake and Output 04/07/17 04/07/17 04/08/17 08:00 16:00 00:00 Intake Total 1141 ml 1810 ml 1231 ml Output Total 600 ml 1050 ml 250 ml Balance 541 ml 760 ml 981 ml Result Diagram: 04/08/17 0710 04/08/17 0710 Imaging Last Impressions Chest X-Ray 04/02/17 0600 Signed Impressions: Service Date/Time: Sunday, April 02, 2017 03:55 - CONCLUSION: 1. Bilateral lower lobe atelectasis versus pneumonia. Bilateral effusions There has been no significant change when compared to the prior exam. Arpit Contreras MD Upper Extremity Ultrasound 03/29/17 0000 Signed Impressions: Service Date/Time: Wednesday, March 29, 2017 11:02 - CONCLUSION: Small amount of thrombus in the left cephalic vein and the left basilic vein. Right upper extremity is unremarkable . Valerio Jerome MD Lower Extremity Ultrasound 03/29/17 0000 Signed Impressions: Service Date/Time: Wednesday, March 29, 2017 10:40 - CONCLUSION: Normal examination. Valerio Jerome MD Abdomen Ultrasound 03/22/172122 Signed Impressions: Service Date/Time: Wednesday, March 22, 2017 08:14 - CONCLUSION: 1. Mild diffusely heterogeneous transplant liver echotexture with small amount of volume loss. No definitive evidence for portal venous gas or significant pneumobilia by ultrasound exam. However, examination was not specifically tailored for extended interrogation of the hepatic vasculature. 2. No sonographic evidence for intra-or extrahepatic ductal dilatation. 3. Trace ascites and small bilateral pleural effusions. Everton Cruz MD Chest CT 03/22/17 0000 Signed Impressions: Service Date/Time: Wednesday, March 22, 2017 15:37 - CONCLUSION: There is ascites and bilateral pleural effusion and worsening left lung consolidation. Indu Cunningham MD Abdomen/Pelvis CT 03/22/17 0000 Signed Impressions: Service Date/Time: Wednesday, March 22, 2017 15:40 - CONCLUSION: Increase in ascites and mesenteric congestion since the prior exam. Indu Cunningham MD Abdomen X-Ray 03/22/17 0000 Signed Impressions: Service Date/Time: Wednesday, March 22, 2017 07:00 - CONCLUSION: No findings characteristic of perforation. Nasogastric tube coiled within the fundus of the stomach. Emilio Snow MD Head CT 03/21/17 0000 Signed Impressions: Service Date/Time: Tuesday, March 21, 2017 23:27 - CONCLUSION: Normal examination. Valerio Jerome MD Objective Remarks GENERAL: Chronically ill-appearing 67-year-old male, critically ill, semi-recombinant in bed. SKIN: Warm and dry. Stage I sacral decubitus ulcer stable HEAD: Atraumatic. Normocephalic. EYES: Pupils equal and round, 2 mm and reactive bilaterally. No scleral icterus. No injection or drainage. ENT: Mucous membranes pink and moist. Oropharynx without erythema or exits. NECK: Trachea midline. No apparent JVD. CARDIOVASCULAR: RRR. sinus by tele this morning. RESPIRATORY: Normal chest excursion. Diminished breath sounds in all basis GASTROINTESTINAL: Abdomen overall soft, non-tender, nondistended. Fecal containment device in situ : Mcpherson in place with light yellow urine output. Positive mild to moderate scrotal edema MUSCULOSKELETAL: There is muscular atrophy involving bilateral hands. Dependent edema and elbows of bilateral upper extremities. There is trace pedal edema. NEUROLOGICAL: Eyes open and makes eye contact. Nods and shakes head to simple question. GCS 11 T , was extremities 4, follows commands Procedures 04/07-CT brain Date of Insertion: Mar 29, 2017 Line: Central Venous Catheter Side: Right Location: Subclavian A/P Assessment and Plan Assessment: 67yM s/p prior OLTx in 2001 now admitted with Acinetobacter septic shock and virulent strain C. Difficile colitis, with persistent multiorgan system dysfunction despite long aggressive therapy. Some organs have slight improvement, although overall prognosis is guarded. New acute hypoxic respiratory failure likely secondary to mucous plugging. Free water replacement. Weaning trials initiated, with tentative plan for trial of extubation in coordination with family. Consideration for compassionate withdrawal versus trial of extubation stool underway with no resolution. The patient continues to fail CPAP trials, ETT day 18. [place] with family regarding plans for possible tracheostomy placement. NEURO/PSYCH: Acute Vision change- resolved. Acute metabolic encephalopathy- resolving. Peripheral neuropathy Chronic benzodiazepine use Chronic narcotic use Cataracts Dexmedetomidine and fentanyl infusion for sedation and vent/ett tolerance, ventilator synchrony 04/05-propofol infusion discontinued Goal of RASS 0 Daily sedation vacation Per prior notes, patient reported to that he could not see before intubation. ?secondary to profound hypotension and hypoperfusion. Pupils reactive, nodding head peripherally to 1-[address] brain 03/21 revealed no acute intracranial findings 04/04 MRI brain-bilateral subdural fluid collections likely hygroma. No midline shift or mass effect. No acute infarction. There is some minimal acute hemorrhage in the left subdural fluid collection measuring 10 mm on the left and 6 mm on the right 04/06: Repeat CT brain ordered follow-up results, performed on the - bilateral frontal subdural collections with underlying cerebral atrophy unchanged EEG 03/22: severe slowing, no epileptiform activity Hold gabapentin 300 mg by mouth 3 times a day. Hold alprazolam 0.5 mg every 8 hours when necessary Oxycodone liquid 5 mg every 4 hours PRN for pain. fentanyl discontinued 04/08 RESP: Acute hypoxic and hypercarbic respiratory failure- acutely worsening this morning. History of tobacco abuse Acute healthcare associated left lower lobe pneumonia PRVC 550/18/12/50% s/p bronch 04/04 urgently with LLL mucous plugging with thick purulent secretions. Ventilator bundle Albuterol/ipratropium nebulizers every 6 hours. Albuterol nebulizers every [address] chest 03/21 - dense consolidation of LLL with air bronchograms. Bronchoscopy with BAL lingula 03/22 - no growth to date SBT as clinically indicated as above CXR 04/02 reveals bilateral infiltrates and bilateral pleural effusions. Continue CPAP trials ETT day - Plans for possible tracheostomy CV: Septic shock with multi system organ failure- resolved History of atrial fibrillation status post ablation currently intermittent A fib RVR now in normal sinus rhythm History of hypertension Hyperlipidemia Evaluated by Dr. Lovell who has recommended maintenance Cardizem to 90 q6. Initial troponin 0.03, mild increase to 0.06 is likely related to sepsis. Echo from 01/23/17 - +LVH, EF 60-65%. No regional wall motion abnormalities. Left atrial dilation. Echo 03/22- preserved LV function, mild RV dysfunction. collapsable IVC. Hold medications amlodipine 10 mg daily for hypertension on vasopressors, atorvastatin 40 mg daily for dyslipidemia with elevated LFTs, spironolactone 25 mg daily with acute kidney injury. Not ideal case for resumption for sotalol 80 mg twice a day/home medication Received IV Lasix 40 mg IV twice a day previously. This currently on hold due to elevated BUN/creatinine. 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 difficile Hypoalbuminemia Patient currently Glucerna 1.5@60 cc an hour/currently at goal Metoprolol 40 mg IV twice a day Patient has been followed by Dr. Mallory as outpatient. He has not been able to follow closely with [facility] due to financial reasons. states he has Prograf levels done at [place] and [facility]. She states he has been referred to [facility] for possible repeat transplant due to plasma cell hepatitis but has not had followup appointment yet. Per GI notes, patient was refused for liver transplant at [facility] due to prior association with [facility]. Prograf level currently downtrending to 4.7. Increase FK dose to 2mg po BID, recheck daily levels at 08:30am. CT abd/pelvis 03/21non-contrast - pneumobilia, fecal impaction, no free air or fluid. repeat CT abd pelvis 03/22: no change. Patient known to Dr. Mallory. GI has signed off for now, reconsult if needed. On Xifaxan 550 twice a day and lactulose 30 cc twice a day. UROLOGY: BPH Hold Proscar 5 milligrams daily Flomax 0.4 mg daily in light of hypotension. Resume when clinically indicated Maintain Mcpherson catheter FEN/RENAL: Acute on chronic kidney injury- persistent. Acute Uremia Persistent Hypernatremia Hypokalemia Hyperphosphatemia Monitor intake and output hourly. Monitor electrolytes and replace as indicated. Urine eosinophils negative 03/24. Avoid nephrotoxic drugs Nephrology following Dr. Mejía. Continue free water to 300cc q4h. Continue D5W@ 50cc/hr. hypernatremia resolved sodium level 148, continue to monitor PhosLo 667 mg by mouth 3 times a day phosphorus binder. recheck daily electrolytes, including phos. ID: Septic shock-resolved LLL HCAP- Acinetobacterbaummini bacteremia C difficile diarrhea d/c Unasyn today. Vancomycin 500 po qid 03/29 and IV Flagyl 500 mg every 8 hours started for C. difficile 027 positive ID following: Dr. Anaya. HEME: Leukocytosis- resolved. Chronic normocytic anemia Acute on chronic Thrombocytopenia Left cephalic/basilic superficial thrombus Monitor CBC daily monitor trends. Preliminary bilateral upper extremity Dopplers revealed left cephalic/basilic superficial thrombus. Treated with DVT prophylaxis Tranfuse for hemoglobin less than 7 ENDO: Diabetes mellitus Hyperglycemia Insulin Detemir 15 units subcutaneous q12. Currently on sliding scale insulin/high regimen every 4 hours s/p stress dose steroids. PROPH: SCDs. Continue heparin 5000 units subcutaneous twice a day Pantoprazole 40 mg IV twice a day ACCESS: Right subclavian central venous line placed 03/29 # 9. Left radial art line 03/29 #9 Dispo: Level 3. Discussed with BATH ATTENDANT at bedside. Attempts made to contact Ms. St by telephone to discuss trial of extubation/reintubation versus compassionate withdrawal, as she has not made any decisions regarding resolution in this area. Patient and the family have had multiple meetings with palliative care team. ETT day 18, the patient will need tracheostomy and PEG tube placement in the very near future, the understanding per previous meetings with Palliative care and Dr. Randle is that the patient and the family are not interested at this time and a tracheostomy or PEG tube placement. Will continue discussions per palliative care team, for resolution or intervention of placement of tracheostomy and PEG tube. Continue attempts with CPAP trials. Physician Blaire Kemp MD Apr 08, 2017 20:39
[2017-04-08] MEDS: RESP: ALBUTEROL 2.5 MG/3 ML NEB (PRN) NEB (21:41)
[2017-04-09] VITALS (38 sets, daily range): BP systolic 90–140; BP diastolic 46–92; PULSE 0–75; RESP 18–19; TEMP 97.7–98.7; O2SAT 54–98
[2017-04-09] MEDS: DILTIAZEM HCL 90 MG TAB PO SCH ×3 (00:22→12:00)
[2017-04-09] MEDS ORDERED: ALTEPLASE RECOMBINANT 2 MG VIAL IV FLUSH ONE ×2 (01:30)
[2017-04-09] MEDS: PROPOFOL 1000 MG/100 ML IV SCH ×3 (03:03→11:07)
[2017-04-09] MEDS: RESP: ALBUTEROL 2.5 MG/3 ML NEB (PRN) NEB (03:13)
[2017-04-09] MEDS: CHLORHEXIDINE GLUCONATE 2 % 1 PACK (2 CLOTHS) TOP SCH (04:00)
[2017-04-09] MEDS: HIGH DOSE INSULIN NOVOLIN REGULAR SUPPLEMENTAL SCALE SQ SCH ×4 (04:00→12:00)
[2017-04-09] MEDS: FREE WATER G-TUBE SCH ×3 (04:00→08:00)
[2017-04-09 04:43] LABS: HEMATOCRIT 24.5 % (39.0-51.0); MEAN CORPUSCULAR HEMOGLOBIN 29.3 PG (27.0-34.0); MEAN CORPUSCULAR HGB CONC 32.9 % (32.0-36.0); PLATELET COUNT 83 TH/MM3 (150-450); RED BLOOD COUNT 2.76 MIL/MM3 (4.50-5.90); RED CELL DISTRIBUTION WIDTH 17.2 % (11.6-17.2); WHITE BLOOD COUNT 6.1 TH/MM3 (4.0-11.0)
[2017-04-09 04:54] LABS: REVIEW FLAG FINAL
[2017-04-09 04:59] LABS: BICARBONATE 23.4 MEQ/L (21.0-32.0); MAGNESIUM 1.9 MG/DL (1.5-2.5); POTASSIUM 3.9 MEQ/L (3.5-5.1)
[2017-04-09 05:58] LABS: BLOOD GAS BASE EXCESS -3.8 mmol/L (-2-2); BLOOD GAS HCO3 20 mmol/L (22-26); BLOOD GAS METHEMOGLOBIN 1.4 % (0-2); BLOOD GAS O2 HGB SATURATION 91 % (90-100); BLOOD GAS PCO2 32 mmHg (38-42); BLOOD GAS PO2 67 mmHg (61-120); BLOOD GAS TOTAL HGB 7.7 G/DL (12.0-16.0); CRITICAL VALUE NO; OXYGEN DEVICE VENTILATOR; TEMP CORR TO 98.6
[2017-04-09 05:59] LABS: DRAW SITE ART LINE; FIO2 40 %; STAT NO; VENT SETTINGS PRVC/AC
[2017-04-09] MEDS: TACROLIMUS 1 MG CAP PO SCH (06:10)
[2017-04-09] MEDS ORDERED: oxyCODONE HCL ORAL CONC 20 MG/ML SYRINGE PO PRN (06:15)
[2017-04-09] MEDS: INSULIN DETEMIR 100 UNITS/ML VIAL SQ SCH (09:00)
[2017-04-09] MEDS: CHLORHEXIDINE 0.12% (ORAL KIT) 15 ML CUP MT SCH (09:50)
[2017-04-09] MEDS: CALCIUM ACETATE 667 MG CAP PO SCH ×2 (09:51→13:00)
[2017-04-09] MEDS: DOCUSATE SODIUM 50 MG/SENNA 8.6 MG TAB PO SCH (09:51)
[2017-04-09] MEDS: RIFAXIMIN 550 MG TAB OG-TUBE SCH (09:51)
[2017-04-09] MEDS: VANCOMYCIN 500 MG VIAL (FOR ORAL USE ONLY) PO SCH ×2 (09:51→13:00)
[2017-04-09] MEDS: CHOLECALCIFEROL (VIT D3) 1000 UNIT TAB PO SCH (09:51)
[2017-04-09] MEDS: SODIUM CHLORIDE 0.9% FLUSH 10 ML FLUSH IV FLUSH SCH (09:51)
[2017-04-09] MEDS: PANTOPRAZOLE SODIUM 40 MG VIAL IV SCH (09:51)
[2017-04-09] MEDS: HEPARIN SODIUM - SQ 10,000 UNITS/ML VIAL SQ SCH (09:51)
[2017-04-09] MEDS: FOLIC ACID 1 MG TAB PO SCH (09:51)
[2017-04-09] MEDS: DEXMEDETOMIDINE INJ 1,000 MCG in SODIUM CHLOR 0.9% 250 ML INJ 240 ML IV SCH (09:52)
--- NOTE | 2017-04-09 11:07 | HHI.CCPN ---
Subjective Remarks/Hospital Course 67-year-old male with past medical history of primary sclerosing cholangitis with orthotopic liver transplant at [facility] in 2001, hypertension, atrial fibrillation status post ablation, hyperlipidemia, diabetes mellitus who presents to [facility] emergency department with altered mental status, fever, urinary incontinence. He was brought in by his . She states that this morning he was doing well and participated with home health physical therapy. When his returned home this evening she found him lethargic and minimally responsive. He had a cup full of mucus and when she inquired about it he stated that he had vomited. He refused ambulance transport. He had a temperature of 103 upon arrival to the emergency department. His states he told ED staff that he had experienced dysuria starting today. He has h/o BPH and UTI in the past. He has chronic low back pain. He denies headache or neck stiffness. His states he returned to his baseline mental status while in the ED and was conversant with her. He had no focal weakness and no witnessed seizure. His ED workup demonstrated U/a with moderate bacteria, 13 WBC, 2 RBC. White blood cell count was 14 with 9% bands, hemoglobin 10.5, platelets 135, AST 45, ALT 31, alkaline phosphatase 172, PT 12.3, INR 1.1 . Creatinine was 2.32 (baseline about 1.6-2), BUN 73, sodium 132 , potassium 5.2, bicarbonate 17 His initial lactic acid was 1.6. He was given Zosyn and 3 L NS bolus and admitted to the hospitalist service. He was complaining of chronic back pain and was anxious/agitated so was given Ativan 0.5 mg IV (chronically on Xanax). ED physician Dr. Orozco was called in because he became unresponsive and he was hypopneic with inadequate respirations. Sats were in the 60s. He complained to his that he could not see. He was hypotensive in 70s and post-intubation BP dropped to 60s/40s and [facility] was called. CVL was placed and he was started on levophed and vasopressin. He is awake on vent and answering questions yes/no. 03/22: patient in refractory distributive shock. I evaluated the patient multiple times throughout the day beginning around 0600 and at frequent intervals. Patient remains acidotic on maximal vasopressor therapy. I had discussions with Dr. Anaya with ID, cultures are growing out Acinetobacter. abx changed to tobra, vanc, meropenem, levaquin, unasyn. continued ivf resuscitation throughout the day guided by frequent IVC and cardiac echo. formal echo with grossly preserved LV function and mild RV dysfunction. but IVC continued to be collapsable. acute renal failure worsening and acidosis severe. started on bicarb drip. repeat CT abd/pelvis performed. I personally transported patient down to CT scanner given how severely unstable the patient was. Discussed with general surgery and interval CT scan is necessary to eval for intra-abdominal source of sepsis. interval CT without change. most likely Acinetobacter pneumonia with overwhelming septic shock. discussed with at length multiple times today regarding his life-threatening infection and his high risk of mortality. 03/23: vasopressors weaning down. patient waking up, following commands. still persistently acidotic, in multiorgan failure. renal dysfunction persists and oliguric. acinetobacter sensitivities not resulted. 03/24: off vasopressors. clinically beginning to improve. Acinetobacter is pansensitive. oliguria persists, but Cr stable and no current indication for acute HD. 03/25: went into afib RVR yesterday. given mgso4 and started aggressive forced diuresis with lasix drip at 20mg/hr. converted spontaneously back to NSR after only about 2 hours. This AM net -2.4L/24h. continues to make 200cc/hr uop. hemodynamics stable. very low-dose norepinephrine requirement. Cr stable, though RAN persists. 03/26: remains in afib, intermittently RVR. on diltiazem drip. Cr worse. uop declining. appears intravascularly dry. stopped lasix drip. wbc uptrending, but still appears nontoxic. 03/27 Afebrile, WBC 16.8 from 22k. Afib converted to sinus rhythm in 50s, discontinuing cardizem 5 mg/hr that is running. Creatinine steady at 2.75 ( previoulsy 2.8 <--2.81). UOP was in 70s this morning, now down to 50 cc/hr and 30 cc/hr. Positive fluid balance last 24 hours. Now CI 2.1 SVV 7, SVI 33. Glucose poorly controlled in 200s to 300s despite high does insulin sliding scale. Off vasopressors since this morning. 03/28 C diff positive. Started vancomycin po overnight. Tolerating tube feeds. A fib RVR in 130s this morning and initially hypotensive when went into Afib and levophed started but quickly weaned off. Restarting cardizem drip. BUN increased but creatinine relatively unchanged. UOP better with lasix yesterday and now edema slightly improved. Wean hydrocortisone. Glucose better after initiation of detemir but still 210. 03/29: Afebrile. Intermittently A. fib with RVR currently normal sinus rhythm. -4000 cc urine output has 24 hours. Arousable and intermittently following commands. 03/30: Afebrile. Intermittently in normal sinus rhythm/A. fib with RVR. Adequate prep. Increasing BUN and creatinine noted. Arousable on the ventilator and will follow commands. Tolerate CPAP 1 hour so far today. Positive BM. Increased residuals from tube feeding noted ~ 400 cc 03/31: Currently afebrile. On PSV trial since 08:40. Tolerating tube feeds at goal rate. Back in A. fib with RVR cards drip at 10 mg an hour. Started on normal saline for gentle hydration. Arousable and following commands. 04/01: Currently afebrile. On PSV trials. Tolerating tube feeds at goal. requesting palliative care consult for goals of care. She does not desire trach at this time. 04/02: Afebrile. On ventilator overnight. Received PRBCs overnight and IV fluids adjusted due to hemoglobin 6.3 and sodium 152. No active bleeding noted. Arousable the ventilator will follow commands. Tolerating PSV trials 4 hours yesterday. 04/03: afebrile, awake, alert this morning. on PSV. sodium still 153 despite free water replacement. BUN still significantly elevated. hgb stable at 7. no active bleeding. Cr downtrending slightly. Subjective: 04/04: yesterday passed SBT, but traveled to MRI and was fatigued at the end of the day. This morning, had acute onset of hypoxemia and respiratory distress. CXR with evidence of left-sided mucous plugging. Obtained bronch with evidence of significant LLL mucous plugging. repeat BAL from LLL sent. FK level downtrending to 4.2 on 04/03. 04/05: The patient remain on CPAP trials today on Precedex infusion successfully for several hours. Tentative plans for a trial of extubation with discussion with the near future in conjunction with palliative care team, regarding goals of care. 04/06: Attempted to CPAP trial this morning, unsuccessful after 15 minutes. Patient was noted to be severely anemic repeat hemoglobin showed 6.9, patient being transfused 2 units of packed cells this a.m.. Repeat CT of the brain ordered secondary to MRI imaging showing hygromas. Extensive discussion with palliative care team, and spouse regarding a trial of extubation, if patient meets criteria with CPAP trials vs. possible withdrawal. 04/07: No acute events overnight. ETT to be advanced 2 cm to 26 cm @ the lip. Repeat CT brain pending. No changes regarding goals of care. 04/08: Attempts made to contact Mrs. Kaur regarding discussion of tracheostomy and PEG placement. She and the patient has stated previously that he would not want a tracheostomy. The ETT has been in place for 18 days, tentative plans for compassionate withdrawal have not been made with resolution. Attempts made to discuss further plan for tracheostomy at this time unsuccessful. Overnight the patient required propofol Precedex and fentanyl infusion secondary to agitation, and ventilator dyssynchrony. Fentanyl has been discontinued. Repeat CT scan revealed no changes from initial MRI. 04/09: The patient has repeatedly failed CPAP trials, with ventilator dyssynchrony upon sedation vacation. The patient remains sedated at this time. ETT advanced 2 cm. Hypernatremia resolved, reduction in free water instillation. Fentanyl discontinued oxycodone every 6 hours for pain. ET tube remains in day called family regarding tracheostomy. Planned meeting with palliative this afternoon regarding possible tracheostomy and PEG placement versus comfort care measures. At this time Mrs. Miller states she does not want a tracheostomy, and the patient would not want a tracheostomy. Tacrolimus level subtherapeutic, a goal of 5 ng for orthotic liver transplant. Tacrolimus increase to 3 mg twice a day. Continue daily labs. Objective Vital Signs Date Time Temp Pulse Resp B/P Pulse Ox O2 Delivery O2 Flow Rate FiO2 04/09/17 08:45 94 40 04/09/17 07:00 62 104/64 106/50 04/09/17 04:00 98.5 19 Intake and Output 04/08/17 04/08/17 04/08/17 07:59 15:59 23:59 Intake Total 1253 ml 617 ml 1624 ml Output Total 225 ml 275 ml 435 ml Balance 1028 ml 342 ml 1189 ml Result Diagram: 04/09/17 0335 04/09/17 0335 Other Results Laboratory Tests Test 04/09/17 05:49 Blood Gas Puncture Site ART LINE Blood Gas Patient Temperature 98.6 Blood Gas HCO3 20 mmol/L (22-26) Blood Gas Base Excess -3.8 mmol/L (-2-2) Blood Gas Oxygen Saturation 91 % (90-100) Arterial Blood pH 7.42 (7.380-7.420) Arterial Blood Partial 32 mmHg (38-42) Pressure CO2 Arterial Blood Partial 67 mmHg Pressure O2 (61-120) Arterial Blood Oxygen Content 10.0 Vol % (12.0-20.0) Arterial Blood 2.0 % (0-4) Carboxyhemoglobin Arterial Blood Methemoglobin 1.4 % (0-2) Blood Gas Hemoglobin 7.7 G/DL (12.0-16.0) Oxygen Delivery Device VENTILATOR Blood Gas Ventilator Setting PRVC/AC Blood Gas Inspired Oxygen 40 % Imaging Last Impressions Chest X-Ray 04/02/17 0600 Signed Impressions: Service Date/Time: Sunday, April 02, 2017 03:55 - CONCLUSION: 1. Bilateral lower lobe atelectasis versus pneumonia. Bilateral effusions There has been no significant change when compared to the prior exam. Arpit Contreras MD Upper Extremity Ultrasound 03/29/17 0000 Signed Impressions: Service Date/Time: Wednesday, March 29, 2017 11:02 - CONCLUSION: Small amount of thrombus in the left cephalic vein and the left basilic vein. Right upper extremity is unremarkable . Valerio Jerome MD Lower Extremity Ultrasound 03/29/17 0000 Signed Impressions: Service Date/Time: Wednesday, March 29, 2017 10:40 - CONCLUSION: Normal examination. Valerio Jerome MD Abdomen Ultrasound 03/22/173 Signed Impressions: Service Date/Time: Wednesday, March 22, 2017 08:14 - CONCLUSION: 1. Mild diffusely heterogeneous transplant liver echotexture with small amount of volume loss. No definitive evidence for portal venous gas or significant pneumobilia by ultrasound exam. However, examination was not specifically tailored for extended interrogation of the hepatic vasculature. 2. No sonographic evidence for intra-or extrahepatic ductal dilatation. 3. Trace ascites and small bilateral pleural effusions. Everton Cruz MD Chest CT 03/22/17 Signed Impressions: Service Date/Time: Wednesday, March 22, 2017 15:37 - CONCLUSION: There is ascites and bilateral pleural effusion and worsening left lung consolidation. Indu Cunningham MD Abdomen/Pelvis CT 03/22/17 Signed Impressions: Service Date/Time: Wednesday, March 22, 2017 15:40 - CONCLUSION: Increase in ascites and mesenteric congestion since the prior exam. Indu Cunningham MD Abdomen X-Ray 03/22/17 Signed Impressions: Service Date/Time: Wednesday, March 22, 2017 07:00 - CONCLUSION: No findings characteristic of perforation. Nasogastric tube coiled within the fundus of the stomach. Emilio Snow MD Head CT 03/21/17 Signed Impressions: Service Date/Time: Tuesday, March 21, 2017 23:27 - CONCLUSION: Normal examination. Valerio Jerome MD Objective Remarks GENERAL: Chronically ill-appearing 67-year-old male, critically ill, semi-recombinant in bed. SKIN: Warm and dry. Stage I sacral decubitus ulcer stable HEAD: Atraumatic. Normocephalic. EYES: Pupils equal and round, 2 mm and reactive bilaterally. No scleral icterus. No injection or drainage. ENT: Mucous membranes pink and moist. Oropharynx without erythema or exits. NECK: Trachea midline. No apparent JVD. CARDIOVASCULAR: RRR. sinus by tele this morning. RESPIRATORY: Normal chest excursion. Diminished breath sounds in all basis GASTROINTESTINAL: Abdomen overall soft, non-tender, nondistended. Fecal containment device in situ : Mcpherson in place with light yellow urine output. Positive mild to moderate scrotal edema MUSCULOSKELETAL: There is muscular atrophy involving bilateral hands. Dependent edema and elbows of bilateral upper extremities. There is trace pedal edema. NEUROLOGICAL: Eyes open and makes eye contact. Nods and shakes head to simple question. GCS 11 T , was extremities 4, follows commands Procedures 04/07-CT brain Date of Insertion: Mar 29, 2017 Line: Central Venous Catheter Side: Right Location: Subclavian A/P Assessment and Plan Assessment: 67yM s/p prior OLTx in 2001 now admitted with Acinetobacter septic shock and virulent strain C. Difficile colitis, with persistent multiorgan system dysfunction despite long aggressive therapy. Some organs have slight improvement, although overall prognosis is guarded. New acute hypoxic respiratory failure likely secondary to mucous plugging. Free water replacement. Weaning trials initiated, with tentative plan for trial of extubation in coordination with family. Consideration for compassionate withdrawal versus trial of extubation stool underway with no resolution. The patient continues to fail CPAP trials, ETT day 19. Discussion with family regarding plans for possible tracheostomy placement. NEURO/PSYCH: Acute Vision change- resolved. Acute metabolic encephalopathy- resolving. Peripheral neuropathy Chronic benzodiazepine use Chronic narcotic use Cataracts Dexmedetomidine and fentanyl infusion for sedation and vent/ett tolerance, ventilator synchrony 04/05-propofol infusion , renewed 04/07 Goal of RASS 0 Daily sedation vacation Per prior notes, patient reported to that he could not see before intubation. ?secondary to profound hypotension and hypoperfusion. Pupils reactive, nodding head peripherally to 1-[address] brain 03/21 revealed no acute intracranial findings 04/04 MRI brain-bilateral subdural fluid collections likely hygroma. No midline shift or mass effect. No acute infarction. There is some minimal acute hemorrhage in the left subdural fluid collection measuring 10 mm on the left and 6 mm on the right 04/06: Repeat CT brain ordered follow-up results, performed on the - bilateral frontal subdural collections with underlying cerebral atrophy unchanged EEG 03/22: severe slowing, no epileptiform activity Hold gabapentin 300 mg by mouth 3 times a day. Hold alprazolam 0.5 mg every 8 hours when necessary Oxycodone liquid 5 mg every 4 hours PRN for pain. fentanyl discontinued 04/08 RESP: Acute hypoxic and hypercarbic respiratory failure- acutely worsening this morning. History of tobacco abuse Acute healthcare associated left lower lobe pneumonia PRVC 550/18/12/50% s/p bronch 04/04 urgently with LLL mucous plugging with thick purulent secretions. Ventilator bundle Albuterol/ipratropium nebulizers every 6 hours. Albuterol nebulizers every [address] chest 03/21 - dense consolidation of LLL with air bronchograms. Bronchoscopy with BAL lingula 03/22 - no growth to date SBT as clinically indicated as above CXR 04/02 reveals bilateral infiltrates and bilateral pleural effusions. Continue CPAP trials as tolerated ETT day - Plans for possible tracheostomy discussed with Mrs. St. CV: Septic shock with multi system organ failure- resolved History of atrial fibrillation status post ablation currently intermittent A fib RVR now in normal sinus rhythm History of hypertension Hyperlipidemia Evaluated by Dr. Lovell who has recommended maintenance Cardizem to 90 q6. Initial troponin 0.03, mild increase to 0.06 is likely related to sepsis. Echo from 01/23/17 - +LVH, EF 60-65%. No regional wall motion abnormalities. Left atrial dilation. Echo 03/22- preserved LV function, mild RV dysfunction. collapsable IVC. Hold Atorvastatin 40 mg daily for dyslipidemia with elevated LFTs, spironolactone 25 mg daily with acute kidney injury. 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 difficile Hypoalbuminemia Patient currently Glucerna 1.5@60 cc an hour/currently at goal-no residuals noted Metoprolol 40 mg IV twice a day Patient has been followed by Dr. Mallory as outpatient. He has not been able to follow closely with [facility] due to financial reasons. states he has Prograf levels done at [place] and [facility] [place] [facility]. She states he has been referred to [facility] for possible repeat transplant due to plasma cell hepatitis but has not had followup appointment yet. Per GI notes, patient was refused for liver transplant at [facility] due to prior association with [place]. Prograf level subtherapeutic. Increased FK dose to 3 mg po BID, recheck daily levels at 08:30am. Goal for orthotic liver transplant [address] abd/pelvis 03/21non-contrast - pneumobilia, fecal impaction, no free air or fluid. repeat CT abd pelvis 03/22: no change. Patient known to Dr. Mallory. GI has signed off for now, reconsult if needed. On Xifaxan 550 twice a day and lactulose 30 cc twice a day. UROLOGY: BPH Hold Proscar 5 milligrams daily Flomax 0.4 mg daily in light of hypotension. Resume when clinically indicated Maintain Mcpherson catheter FEN/RENAL: Acute on chronic kidney injury- persistent. Acute Uremia Persistent Hypernatremia-resolved Hypokalemia Hyperphosphatemia Monitor intake and output hourly. Monitor electrolytes and replace as indicated. Urine eosinophils negative 03/24. Avoid nephrotoxic drugs Nephrology following Dr. Mejía. Continue free water to 300cc q4h. D5W discontinued. Sodium level 138 Decreased Free water 200 cc every 4 hours PhosLo 667 mg by mouth 3 times a day phosphorus binder. recheck daily electrolytes, including phos. ID: Septic shock-resolved LLL HCAP- Acinetobacterbaummini bacteremia C difficile diarrhea d/c Unasyn today. Vancomycin 500 po qid 03/29 and IV Flagyl 500 mg every 8 hours started for C. difficile 027 positive ID following: Dr. Anaya. HEME: Leukocytosis- resolved. Chronic normocytic anemia Acute on chronic Thrombocytopenia Left cephalic/basilic superficial thrombus Monitor CBC daily monitor trends. Preliminary bilateral upper extremity Dopplers revealed left cephalic/basilic superficial thrombus. Treated with DVT prophylaxis Tranfuse for hemoglobin less than 7 ENDO: Diabetes mellitus Hyperglycemia Insulin Detemir 15 units subcutaneous q12. Currently on sliding scale insulin/high regimen every 4 hours s/p stress dose steroids. PROPH: SCDs. Continue heparin 5000 units subcutaneous twice a day Pantoprazole 40 mg IV twice a day ACCESS: Right subclavian central venous line placed 03/29 # 10. Left radial art line 03/29 #10 Dispo: Level 3. Discussed with [employer] at bedside.Discussed with Mrs. St. Called Ms. St to discuss trial of extubation/reintubation versus compassionate withdrawal, as she has not made any decisions regarding resolution in this area. Planned family meeting today with palliative care team. I discussed with her ETT the patient will need tracheostomy and PEG tube placement in the very near future, she stated that the family are not interested at this time and a tracheostomy or PEG tube placement, and needs more information regarding compassionate withdrawal versus trial of extubation/ reintubation. Currently the patient has been failing CPAP trials. Physician Blaire Kemp MD Apr 09, 2017 11:07
--- NOTE | 2017-04-09 11:36 | HHI.HCPN ---
Reason for visit a. To assist with evaluation and management of symptoms including: shortness of breath, anxiety , pain b. To assist medical decision maker(s) with: better understanding of current medical conditions; weighing benefits/burdens of medical treatment options; making medical treatment decisions. Subjective/Interval History patient seen today to follow up with regarding goals of treatment. Before arrival to unit received call from patient requesting possible withdrawal of life support in transition to comfort focus today. She requested spiritual support. She discussed with palliative physician. Still unable to tolerate cpap/vent weaning. Cont to require diprivan + precedex . CXR stable. sputum from 04/08 pending. Appears comfortable at time of my exam, minimally stirs to stimuli. Met w pt at bedside, also pt son. expresses that she again d/w drill runner helper yesterday RE trach and aggressive tx versus comfort measures. She understands that pt has not improved significantly, and has been struggling with not seeing him improve. She endorses that he would NOT want a tracheostomy , that he has overcome many illness in the past, but that he is not "bouncing back " from this one. She feels at this time he would want to focus on comfort and allow his illness for follow a natural course. She would like to remove life support and transition to comfort today, after school coordinator/procedure tech has been in . Anticipatory guidance provided. All questions answered. Their son is supportive, also feels this would be pt wishes. D/w RN, critical care, palliative MD. Orders to be entered for comfort for pre withdrawal, time of withdrawal, and post withdrawal. Advance Directives Living Will: Never completed Health Care Surrogate: Never completed Durable Power of Seo Strategist: Never completed Advance Directive Specifics Health Care Surrogate(s): No known written advance directives per family report. According to [place] statutes, health care proxy decision makers also patient's spouse. . Significant change in goals: requests transition to comfort focus/withdrawal of life support. . Objective Vital Signs Date Time Temp Pulse Resp B/P Pulse Ox O2 Delivery O2 Flow Rate FiO2 04/09/17 08:45 94 40 04/09/17 08:00 98.0 68 18 108/67 95 117/55 04/09/17 08:00 40 04/09/17 07:00 62 104/64 95 106/50 04/09/17 06:46 63 133/92 95 123/59 7/ 06:30 63 130/73 94 132/57 7/17 06:15 61 126/79 93 129/59 7 06:00 61 126/73 93 128/58 7 06:00 61 04/09/17 05:45 62 120/74 92 123/56 717 05:30 62 117/73 91 120/56 717 05:15 63 112/70 91 114/54 717 05:00 63 114/70 92 116/54 7 04:45 64 117/71 91 117/54 7 04:30 66 121/70 92 118/55 717 04:30 66 121/70 92 118/55 717 04:15 66 122/70 92 118/55 717 04:15 66 122/70 92 118/55 717 04:00 67 128/77 93 130/59 7 04:00 67 04/09/17 04:00 98.5 67 19 128/77 93 130/58 7 04:00 67 128/77 93 130/59 7/17 04:00 40 04/09/17 03:50 98 40 04/09/17 03:45 67 115/68 96 122/54 04/09/17 03:30 63 116/66 95 127/61 7 03:15 62 121/71 97 137/65 04/09/17 03:00 61 123/71 97 140/65 04/09/17 02:45 61 114/67 96 126/61 04/09/17 02:30 60 128/75 98 135/61 7 02:15 60 122/73 96 128/59 04/09/17 02:00 60 119/71 95 123/57 717 02:00 63 04/09/17 01:45 61 118/71 96 125/58 17 01:30 62 117/72 95 123/57 717 01:15 63 116/66 95 121/57 17 01:02 98 50 04/09/17 01:00 65 123/74 98 127/58 7//17 00:45 68 122/71 98 130/59 04/09/17 00:30 69 116/69 98 126/57 04/09/17 00:15 75 122/71 97 137/60 04/09/17 00:00 68 04/09/17 00:00 68 100/64 97 90/46 04/09/17 00:00 80 04/09/17 00:00 68 100/64 97 90/46 04/09/17 00:00 98.7 68 19 100/64 97 90/46 04/08/17 23:45 65 98/62 97 92/47 04/08/17 23:30 64 109/69 98 108/53 04/08/17 23:15 66 112/71 98 109/53 04/08/17 23:00 65 109/71 98 109/53 04/08/17 22:51 99 60 04/08/17 22:45 63 113/69 99 109/54 04/08/17 22:30 64 117/73 99 118/57 04/08/17 22:15 63 109/69 99 115/54 04/08/17 22:00 63 109/67 100 114/53 04/08/17 22:00 63 04/08/17 21:45 64 110/64 100 114/54 04/08/17 21:30 63 110/69 99 109/52 04/08/17 21:15 62 108/67 99 116/54 04/08/17 21:00 61 110/65 99 117/55 04/08/17 20:45 60 110/69 99 114/55 04/08/17 20:30 61 113/69 99 119/56 04/08/17 20:15 62 114/68 99 121/55 04/08/17 20:00 99.1 62 20 111/63 99 120/56 04/08/17 20:00 80 04/08/17 20:00 62 04/08/17 20:00 62 111/63 99 120/57 04/08/17 18:05 98 70 04/08/17 18:00 60 04/08/17 16:00 60 04/08/17 16:00 98.5 60 19 102/63 99 112/54 04/08/17 16:00 100 04/08/17 14:07 98 80 04/08/17 14:00 66 04/08/17 12:00 100 04/08/17 12:00 65 04/08/17 12:00 99.1 65 20 114/68 99 119/53 Intake & Output 04/09/17 04/09/17 07:00 19:00 Intake Total 3127 ml Output Total 1035.0 ml Balance 2092.0 ml IV Total 1636 ml Tube Feeding 501 ml Other 990 ml Output Urine Total 825 ml Stool Total 210 ml Tube Feeding Residual Discard 0 ml Physical Exam CONSTITUTIONAL/GENERAL: This is an adequately nourished patient, sedated on mech vent TUBES/LINES/DRAINS: ETT, NG left nare, right subclavian central line, left wrist arterial line, bilateral soft wrist restraints, Mcpherson, Dignishield rectal drain, SCDs and podus boots. CARDIOVASCULAR: regular rate, no murmur. +1-2+ edema BUE RESPIRATORY/CHEST: unlabored respirations via mech vent, course rhonchi throughout, diminished to bases GASTROINTESTINAL: Abdomen soft, non-tender, nondistended. Bowel sounds hypoactive. +NGT in place GENITOURINARY: Without palpable bladder distension. Mcpherson catheter in place. NEUROLOGICAL: sedated, non responsive to my exam. no eye opening PSYCHIATRIC: no apparent distress at time of exam. . Diagnostic Tests Laboratory Laboratory Tests Test 04/06/17 04/07/17 04/07/17 04/07/17 18:45 03:30 06:18 19:22 White Blood Count 9.3 TH/MM3 8.8 TH/MM3 (4.0-11.0) (4.0-11.0) Red Blood Count 3.18 MIL/MM3 3.12 MIL/MM3 (4.50-5.90) (4.50-5.90) Hemoglobin 9.1 GM/DL 9.1 GM/DL (13.0-17.0) (13.0-17.0) Hematocrit 27.7 % 27.3 % (39.0-51.0) (39.0-51.0) Mean Corpuscular Volume 87.3 FL 87.8 FL (80.0-100.0) (80.0-100.0) Mean Corpuscular Hemoglobin 28.7 PG 29.3 PG (27.0-34.0) (27.0-34.0) Mean Corpuscular Hemoglobin 32.9 % 33.4 % Concent (32.0-36.0) (32.0-36.0) Red Cell Distribution Width 15.8 % 16.2 % (11.6-17.2) (11.6-17.2) Platelet Count 100 TH/MM3 106 TH/MM3 (150-450) (150-450) Mean Platelet Volume 8.9 FL 8.4 FL (7.0-11.0) (7.0-11.0) Neutrophils (%) (Auto) 80.2 % (16.0-70.0) Lymphocytes (%) (Auto) 12.4 % (9.0-44.0) Monocytes (%) (Auto) 5.2 % (0.0-8.0) Eosinophils (%) (Auto) 1.8 % (0.0-4.0) Basophils (%) (Auto) 0.4 % (0.0-2.0) Neutrophils # (Auto) 7.4 TH/MM3 (1.8-7.7) Lymphocytes # (Auto) 1.1 TH/MM3 (1.0-4.8) Monocytes # (Auto) 0.5 TH/MM3 (0-0.9) Eosinophils # (Auto) 0.2 TH/MM3 (0-0.4) Basophils # (Auto) 0.0 TH/MM3 (0-0.2) CBC Comment DIFF FINAL Differential Comment Sodium Level 149 MEQ/L (136-145) Potassium Level 4.0 MEQ/L (3.5-5.1) Chloride Level 116 MEQ/L (98-107) Carbon Dioxide Level 27.7 MEQ/L (21.0-32.0) Anion Gap 5 MEQ/L (5-15) Blood Urea Nitrogen 62 MG/DL (7-18) Creatinine 1.42 MG/DL (0.60-1.30) Estimat Glomerular Filtration 50 ML/MIN (>89) Rate Random Glucose 96 MG/DL (74-106) Calcium Level 8.1 MG/DL (8.5-10.1) Phosphorus Level 3.0 MG/DL (2.5-4.9) Magnesium Level 1.9 MG/DL (1.5-2.5) Blood Gas Puncture Site ART LINE ART LINE Blood Gas Patient Temperature 98.6 98.6 Blood Gas HCO3 21 mmol/L 21 mmol/L (22-26) (22-26) Blood Gas Base Excess -3.3 mmol/L -4.1 mmol/L (-2-2) (-2-2) Blood Gas Oxygen Saturation 94 % (90-100) 88 % (90-100) Arterial Blood pH 7.37 7.30 (7.380-7.420) (7.380-7.420) Arterial Blood Partial 37 mmHg (38-42) 44 mmHg (38-42) Pressure CO2 Arterial Blood Partial 85 mmHg 63 mmHg Pressure O2 (61-120) (61-120) Arterial Blood Oxygen Content 18.5 Vol % 18.0 Vol % (12.0-20.0) (12.0-20.0) Arterial Blood 1.5 % (0-4) 1.4 % (0-4) Carboxyhemoglobin Arterial Blood Methemoglobin 1.1 % (0-2) 1.3 % (0-2) Blood Gas Hemoglobin 13.9 G/DL 14.6 G/DL (12.0-16.0) (12.0-16.0) Oxygen Delivery Device VENT VENT Blood Gas Ventilator Setting SEE COMMENTS SEE COMMENTS Blood Gas Inspired Oxygen 100 % 100 % Test 04/08/17 04/08/17 04/09/17 04/09/17 07:10 11:15 03:35 05:49 White Blood Count 6.1 TH/MM3 6.1 TH/MM3 (4.0-11.0) (4.0-11.0) Red Blood Count 2.73 MIL/MM3 2.76 MIL/MM3 (4.50-5.90) (4.50-5.90) Hemoglobin 8.1 GM/DL 8.1 GM/DL (13.0-17.0) (13.0-17.0) Hematocrit 23.9 % 24.5 % (39.0-51.0) (39.0-51.0) Mean Corpuscular Volume 87.6 FL 89.0 FL (80.0-100.0) (80.0-100.0) Mean Corpuscular Hemoglobin 29.6 PG 29.3 PG (27.0-34.0) (27.0-34.0) Mean Corpuscular Hemoglobin 33.8 % 32.9 % Concent (32.0-36.0) (32.0-36.0) Red Cell Distribution Width 16.0 % 17.2 % (11.6-17.2) (11.6-17.2) Platelet Count 84 TH/MM3 83 TH/MM3 (150-450) (150-450) Mean Platelet Volume 8.7 FL 8.4 FL (7.0-11.0) (7.0-11.0) Sodium Level 146 MEQ/L 138 MEQ/L (136-145) (136-145) Potassium Level 4.0 MEQ/L 3.9 MEQ/L (3.5-5.1) (3.5-5.1) Chloride Level 114 MEQ/L 107 MEQ/L (98-107) (98-107) Carbon Dioxide Level 23.2 MEQ/L 23.4 MEQ/L (21.0-32.0) (21.0-32.0) Anion Gap 9 MEQ/L (5-15) 8 MEQ/L (5-15) Blood Urea Nitrogen 57 MG/DL (7-18) 58 MG/DL (7-18) Creatinine 1.56 MG/DL 1.63 MG/DL (0.60-1.30) (0.60-1.30) Estimat Glomerular Filtration 45 ML/MIN (>89) 42 ML/MIN (>89) Rate Random Glucose 83 MG/DL 84 MG/DL (74-106) (74-106) Calcium Level 8.0 MG/DL 8.0 MG/DL (8.5-10.1) (8.5-10.1) Tacrolimus (Prograf) Level 2.0 NG/ML (5.0-20.0) Phosphorus Level 3.4 MG/DL (2.5-4.9) Magnesium Level 1.9 MG/DL (1.5-2.5) Blood Gas Puncture Site ART LINE Blood Gas Patient Temperature 98.6 Blood Gas HCO3 20 mmol/L (22-26) Blood Gas Base Excess -3.8 mmol/L (-2-2) Blood Gas Oxygen Saturation 91 % (90-100) Arterial Blood pH 7.42 (7.380-7.420) Arterial Blood Partial 32 mmHg (38-42) Pressure CO2 Arterial Blood Partial 67 mmHg Pressure O2 (61-120) Arterial Blood Oxygen Content 10.0 Vol % (12.0-20.0) Arterial Blood 2.0 % (0-4) Carboxyhemoglobin Arterial Blood Methemoglobin 1.4 % (0-2) Blood Gas Hemoglobin 7.7 G/DL (12.0-16.0) Oxygen Delivery Device VENTILATOR Blood Gas Ventilator Setting PRVC/AC Blood Gas Inspired Oxygen 40 % Result Diagram: 04/09/17 0335 04/09/17 0335 Microbiology Microbiology Date/Time Procedure Status Source Growth 04/08/17 18:30 Gram Stain - Final Resulted Sputum Endotracheal 04/08/17 18:30 Sputum Culture Resulted Sputum Endotracheal Pending Procedures * 03/29/17 left subclavian central line placement * 03/22/17 fiber-optic bronchoscopy with bronchoalveolar lavage * 03/21/17 - left subclavian central line placement * 03/21/17 intubated . Assessment and Plan Disease Oriented Problem List: (1) History of liver transplant (2) Sepsis (3) Urinary tract infection (4) Altered mental status, unspecified (5) CHF (congestive heart failure) (6) Atrial fibrillation with RVR (7) Acute on chronic kidney disease, stage 3 (8) PNA (pneumonia) Symptom Scale: (1) Anxiety 0-10 Scale: Unable to quantify (2) Shortness of breath 0-10 Scale: 0 (3) Debility 0-10 Scale: Unable to quantify (4) Pain 0-10 Scale: 0 Pertinent Non-Medical Issues Psychosocial: . 1 son, lives local. Spiritual: [employer]. Legal: In the absence of written advance directives, according to [place] statutes, health care proxy decision makers also patient's spouse. Ethical issues impacting care: no known concerns at this time. . Important Contacts * Connie St, spouse: [phone] . 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 Overall prognosis appears poor. Would be hospice appropriate if goals are comfort oriented. . Code Status: Full Code Plan * Decision Maker: no known written advance directives, according to [place] statutes, health care proxy decision makers also patient's spouse. * ALTERNATE CODE: intubation only. No cardiac compressions, shock or ACLS.-__> changed to DNR at time of withdrawal * GOALS : has requested withdrawal of life support today she will be arriving shortly.--->> Met w pt at bedside, also pt son. expresses that she again d/w drill runner helper yesterday RE trach and aggressive tx versus comfort measures. She understands that pt has not improved significantly, and has been struggling with not seeing him improve. She endorses that he would NOT want a tracheostomy, that he has overcome many illness in the past, but that he is not "bouncing back " from this one. She feels at this time he would want to focus on comfort and allow his illness for follow a natural course. She would like to remove life support and transition to comfort today, after school coordinator/ procedure tech has been in . Anticipatory guidance provided. All questions answered. Their son is supportive, also feels this would be pt wishes. D/w RN, critical care, palliative MD. Orders to be entered for comfort for pre withdrawal, time of withdrawal, and post withdrawal. * SYMPTOMS: anxiety: on Propofol, precedex. Intermittently tearful per per prev family reports, though not witnessed or reported today. Pain: secondary to bedbound status, acute hospitalization, tubes, general debility and weakness. On Fentanyl drip 100mch/hr. no sx pain during my exam today. Dyspnea: no dyspnea during my visit on [facility] vent, breathing comfortably. Debility: has had frequent infections and hospitalizations over the past year with increased debility. * Palliative care number provided. * Palliative care will continue to follow throughout hospital course to assist with symptom management and clarification of goals as needed. . Time Spent Total Floor Time (mins): 40 Attestation To help prompt me to consider important information that might be impacting today's encounter and assessment, information from prior notes written by myself or my colleagues may have been "brought forward" into today's note. My signature on this note, however, is an attestation that I personally performed the exam, history, and/or decision-making noted today, and, unless otherwise indicated, the interactions with patient, family, and staff as well as the review of records all occurred today. I also attest that the listed assessment and stated plan reflect my best clinical judgment today based on the combination of historical information, prior notes, and today's exam/ interactions. When time spent is documented, it refers only to time spent today by the signer, or if indicated, combined time spent today by collaborating physician/nurse practitioner. Shannen See Apr 09, 2017 11:36
[2017-04-09] MEDS ORDERED: FREE WATER G-TUBE SCH (12:00)
[2017-04-09] MEDS ORDERED: LORazepam 2 MG/ML VIAL IV ONE ×2 (12:30→12:45)
[2017-04-09] MEDS ORDERED: MORPHINE SULFATE 8 MG/ML INJ IV PUSH ONE (12:30)
[2017-04-09] MEDS ORDERED: fentaNYL DRIP 250 ML IV SCH (12:30)
[2017-04-09] MEDS ORDERED: HYOSCYAMINE 0.125 MG TAB PO/SL ONE (12:30)
[2017-04-09] MEDS ORDERED: MORPHINE SULFATE 4 MG/ML INJ IV ONE (12:45)
[2017-04-09] MEDS ORDERED: MORPHINE SULFATE 8 MG/ML INJ IV PUSH PRN (13:00)
[2017-04-09] MEDS ORDERED: LORazepam 2 MG/ML VIAL IV PRN ×2 (13:00)
[2017-04-09] MEDS ORDERED: LORazepam 2 MG/ML VIAL IVS PRN (13:00)
[2017-04-09] MEDS ORDERED: MORPHINE SULFATE 4 MG/ML INJ IV PRN (13:00)
[2017-04-09] MEDS ORDERED: BISACODYL 10 MG SUPP RECTAL PRN (13:00)
[2017-04-09] MEDS ORDERED: FUROSEMIDE 20 MG/2 ML VIAL IV PRN (13:00)
[2017-04-09] MEDS ORDERED: MORPHINE SULFATE 4 MG/ML INJ IV SCH (16:00)
[2017-04-09] MEDS ORDERED: LORazepam 2 MG/ML VIAL IV SCH (16:00)
[2017-04-09] MEDS ORDERED: TACROLIMUS 1 MG CAP PO SCH (18:00)
--- NOTE | 2017-04-09 19:00 | HHI.DS ---
Summary Note Date of : Apr 09, 2017 Time Of : 1355 Admission Date Mar 21, 2017 at 20:23 Admitting Diagnosis Urosepsis Diagnosis at Time of : Procedures 04/07-CT brain Brief History 67-year-old male with past medical history of primary sclerosing cholangitis with orthotopic liver transplant at [facility] in 2001, hypertension, atrial fibrillation status post ablation, hyperlipidemia, diabetes mellitus who presents to [facility] emergency department with altered mental status, fever, urinary incontinence. He was brought in by his . She states that this morning he was doing well and participated with home health physical therapy. When his returned home this evening she found him lethargic and minimally responsive. He had a cup full of mucus and when she inquired about it he stated that he had vomited. He refused ambulance transport. He had a temperature of 103 upon arrival to the emergency department. His states he told ED staff that he had experienced dysuria starting today. He has h/o BPH and UTI in the past. He has chronic low back pain. He denies headache or neck stiffness. His states he returned to his baseline mental status while in the ED and was conversant with her. He had no focal weakness and no witnessed seizure. His ED workup demonstrated U/a with moderate bacteria, 13 WBC, 2 RBC. White blood cell count was 14 with 9% bands, hemoglobin 10.5, platelets 135, AST 45, ALT 31, alkaline phosphatase 172, PT 12.3, INR 1.1 . Creatinine was 2.32 (baseline about 1.6-2), BUN 73, sodium 132 , potassium 5.2, bicarbonate 17 His initial lactic acid was 1.6. He was given Zosyn and 3 L NS bolus and admitted to the hospitalist service. He was complaining of chronic back pain and was anxious/agitated so was given Ativan 0.5 mg IV (chronically on Xanax). ED physician Dr. Orozco was called in because he became unresponsive and he was hypopneic with inadequate respirations. Sats were in the 60s. He complained to his that he could not see. He was hypotensive in 70s and post-intubation BP dropped to 60s/40s and [facility] was called. CVL was placed and he was started on levophed and vasopressin. He is awake on vent and answering questions yes/no. CBC/BMP: 04/09/17 0335 04/09/17 0335 Significant Findings Laboratory Tests Test 04/07/17 04/07/17 04/07/17 04/08/17 03:30 06:18 19:22 07:10 Red Blood Count 3.12 MIL/MM3 2.73 MIL/MM3 (4.50-5.90) (4.50-5.90) Hemoglobin 9.1 GM/DL 8.1 GM/DL (13.0-17.0) (13.0-17.0) Hematocrit 27.3 % 23.9 % (39.0-51.0) (39.0-51.0) Platelet Count 106 TH/MM3 84 TH/MM3 (150-450) (150-450) Sodium Level 149 MEQ/L 146 MEQ/L (136-145) (136-145) Chloride Level 116 MEQ/L 114 MEQ/L (98-107) (98-107) Blood Urea Nitrogen 62 MG/DL (-18) 57 MG/DL (-) Creatinine 1.42 MG/DL 1.56 MG/DL (0.60-1.30) (0.60-1.30) Estimat Glomerular Filtration 50 ML/MIN (>89) 45 ML/MIN (>89) Rate Calcium Level 8.1 MG/DL 8.0 MG/DL (8.5-10.1) (8.5-10.1) Blood Gas HCO3 21 mmol/L 21 mmol/L (22-26) (22-26) Blood Gas Base Excess -3.3 mmol/L -4.1 mmol/L (-2-2) (-2-2) Arterial Blood pH 7.37 7.30 (7.380-7.420) (7.380-7.420) Arterial Blood Partial 37 mmHg (38-42) 44 mmHg (38-42) Pressure CO2 Blood Gas Oxygen Saturation 88 % (90-100) Test 04/08/17 04/09/17 04/09/17 11:15 03:35 05:49 Tacrolimus (Prograf) Level 2.0 NG/ML (5.0-20.0) Red Blood Count 2.76 MIL/MM3 (4.50-5.90) Hemoglobin 8.1 GM/DL (13.0-17.0) Hematocrit 24.5 % (39.0-51.0) Platelet Count 83 TH/MM3 (150-450) Blood Urea Nitrogen 58 MG/DL (7-18) Creatinine 1.63 MG/DL (0.60-1.30) Estimat Glomerular Filtration 42 ML/MIN (>89) Rate Calcium Level 8.0 MG/DL (8.5-10.1) Blood Gas HCO3 20 mmol/L (22-26) Blood Gas Base Excess -3.8 mmol/L (-2-2) Arterial Blood Partial 32 mmHg (38-42) Pressure CO2 Arterial Blood Oxygen Content 10.0 Vol % (12.0-20.0) Blood Gas Hemoglobin 7.7 G/DL (12.0-16.0) Imaging Last Impressions Chest X-Ray 04/02/17 0600 Signed Impressions: Service Date/Time: Sunday, April 02, 2017 03:55 - CONCLUSION: 1. Bilateral lower lobe atelectasis versus pneumonia. Bilateral effusions There has been no significant change when compared to the prior exam. Arpit Contreras MD Upper Extremity Ultrasound 03/29/17 0000 Signed Impressions: Service Date/Time: Wednesday, March 29, 2017 11:02 - CONCLUSION: Small amount of thrombus in the left cephalic vein and the left basilic vein. Right upper extremity is unremarkable . Valerio Jerome MD Lower Extremity Ultrasound 03/29/17 0000 Signed Impressions: Service Date/Time: Wednesday, March 29, 2017 10:40 - CONCLUSION: Normal examination. Valerio Jerome MD Abdomen Ultrasound 03/22/173 Signed Impressions: Service Date/Time: Wednesday, March 22, 2017 08:14 - CONCLUSION: 1. Mild diffusely heterogeneous transplant liver echotexture with small amount of volume loss. No definitive evidence for portal venous gas or significant pneumobilia by ultrasound exam. However, examination was not specifically tailored for extended interrogation of the hepatic vasculature. 2. No sonographic evidence for intra-or extrahepatic ductal dilatation. 3. Trace ascites and small bilateral pleural effusions. Everton Cruz MD Chest CT 03/22/17 0000 Signed Impressions: Service Date/Time: Wednesday, March 22, 2017 15:37 - CONCLUSION: There is ascites and bilateral pleural effusion and worsening left lung consolidation. Indu Cunningham MD Abdomen/Pelvis CT 03/22/17 0000 Signed Impressions: Service Date/Time: Wednesday, March 22, 2017 15:40 - CONCLUSION: Increase in ascites and mesenteric congestion since the prior exam. Indu Cunningham MD Abdomen X-Ray 03/22/17 0000 Signed Impressions: Service Date/Time: Wednesday, March 22, 2017 07:00 - CONCLUSION: No findings characteristic of perforation. Nasogastric tube coiled within the fundus of the stomach. Emilio Snow MD Head CT 03/21/17 0000 Signed Impressions: Service Date/Time: Tuesday, March 21, 2017 23:27 - CONCLUSION: Normal examination. Valerio Jerome MD Hospital Course 04/04: yesterday passed SBT, but traveled to [facility] and was fatigued at the end of the day. This morning, had acute onset of hypoxemia and respiratory distress. CXR with evidence of left-sided mucous plugging. Obtained bronch with evidence of significant LLL mucous plugging. repeat BAL from L sent. FK level downtrending to 4.2 on 04/03. 04/05: The patient remain on CPAP trials today on Precedex infusion successfully for several hours. Tentative plans for a trial of extubation with discussion with the near future in conjunction with palliative care team, regarding goals of care. 04/06: Attempted to CPAP trial this morning, unsuccessful after 15 minutes. Patient was noted to be severely anemic repeat hemoglobin showed 6.9, patient being transfused 2 units of packed cells this a.m.. Repeat CT of the brain ordered secondary to MRI imaging showing hygromas. Extensive discussion with palliative care team, and spouse regarding a trial of extubation, if patient meets criteria with CPAP trials vs. possible withdrawal. 04/07: No acute events overnight. ETT to be advanced 2 cm to 26 cm @ the lip. Repeat CT brain pending. No changes regarding goals of care. 04/08: Attempts made to contact Mrs. Kaur regarding discussion of tracheostomy and PEG placement. She and the patient has stated previously that he would not want a tracheostomy. The ETT has been in place for 18 days, tentative plans for compassionate withdrawal have not been made with resolution. Attempts made to discuss further plan for tracheostomy at this time unsuccessful. Overnight the patient required propofol Precedex and fentanyl infusion secondary to agitation, and ventilator dyssynchrony. Fentanyl has been discontinued. Repeat CT scan revealed no changes from initial MRI. 04/09: The patient has repeatedly failed CPAP trials, with ventilator dyssynchrony upon sedation vacation. The patient remains sedated at this time. ETT advanced 2 cm. Hypernatremia resolved, reduction in free water instillation. Fentanyl discontinued oxycodone every 6 hours for pain. ET tube remains in day called family regarding tracheostomy. Planned meeting with palliative this afternoon regarding possible tracheostomy and PEG placement versus comfort care measures. At this time Mrs. Miller states she does not want a tracheostomy, and the patient would not want a tracheostomy. Tacrolimus level subtherapeutic, a goal of 5 ng for orthotic liver transplant. Tacrolimus increase to 3 mg twice a day. Continue daily labs. 04/09: Post palliative care meeting this afternoon, all questions answered. Family decision made for compassionate withdrawal. The family present, compassionate withdrawal measures instituted. The patient at 1355. Blaire Castrejon MD Apr 09, 2017 19:00
== END 2017-04-09 13:55 | disposition expired | DRG 853 ==
LOC: NEPE 17:40 → NEDA 20:23 → HIMN 23:45
PROVIDERS: ADMIT Internal Medicine Critical Care Medicine; ATTEND Internal Medicine Critical Care Medicine
PROC: 5A1955Z Respiratory Ventilation, Greater than 96 Consecutive Hours (ICD-10-PCS; 2017-03-21)
PROC: 0BH17EZ Insertion of Endotracheal Airway into Trachea, Via Natural or Artificial Opening (ICD-10-PCS; 2017-03-21)
PROC: 05H633Z Insertion of Infusion Device into Left Subclavian Vein, Percutaneous Approach (ICD-10-PCS; 2017-03-21)
PROC: B547ZZA Ultrasonography of Left Subclavian Vein, Guidance (ICD-10-PCS; 2017-03-21)
PROC: 0B9J8ZX Drainage of Left Lower Lung Lobe, Via Natural or Artificial Opening Endoscopic, Diagnostic (ICD-10-PCS; principal; 2017-03-22)
PROC: 0B9H8ZX Drainage of Lung Lingula, Via Natural or Artificial Opening Endoscopic, Diagnostic (ICD-10-PCS; 2017-03-22)
PROC: 05H633Z Insertion of Infusion Device into Left Subclavian Vein, Percutaneous Approach (ICD-10-PCS; 2017-03-29)
PROC: 0B9J8ZX Drainage of Left Lower Lung Lobe, Via Natural or Artificial Opening Endoscopic, Diagnostic (ICD-10-PCS; 2017-04-04)
DX: A41.59 Other Gram-negative sepsis (principal); J96.01 Acute respiratory failure with hypoxia; N17.0 Acute kidney failure with tubular necrosis; R65.21 Severe sepsis with septic shock; G93.41 Metabolic encephalopathy; Z51.5 Encounter for palliative care; J15.6 Pneumonia due to other Gram-negative bacteria; J96.02 Acute respiratory failure with hypercapnia; A04.7 Enterocolitis due to Clostridium difficile; D68.9 Coagulation defect, unspecified; I13.0 Hypertensive heart and chronic kidney disease with heart failure and stage 1 through stage 4 chronic kidney disease, or unspecified chronic kidney disease; Z94.4 Liver transplant status; N39.0 Urinary tract infection, site not specified; E87.2 Acidosis; I82.612 Acute embolism and thrombosis of superficial veins of left upper extremity; K76.6 Portal hypertension; J98.11 Atelectasis; E87.0 Hyperosmolality and hypernatremia; I50.9 Heart failure, unspecified; G62.9 Polyneuropathy, unspecified; K56.41 Fecal impaction; E87.5 Hyperkalemia; E83.42 Hypomagnesemia; E11.22 Type 2 diabetes mellitus with diabetic chronic kidney disease; K75.9 Inflammatory liver disease, unspecified; K74.60 Unspecified cirrhosis of liver; E88.09 Other disorders of plasma-protein metabolism, not elsewhere classified; I48.91 Unspecified atrial fibrillation; E11.65 Type 2 diabetes mellitus with hyperglycemia; L89.151 Pressure ulcer of sacral region, stage 1; N18.3 Chronic kidney disease, stage 3 (moderate); D64.9 Anemia, unspecified; K21.9 Gastro-esophageal reflux disease without esophagitis; Y95 Nosocomial condition; N40.0 Benign prostatic hyperplasia without lower urinary tract symptoms; G89.29 Other chronic pain; M54.5 Low back pain; E78.5 Hyperlipidemia, unspecified; D69.59 Other secondary thrombocytopenia; K75.4 Autoimmune hepatitis; R13.10 Dysphagia, unspecified; K29.70 Gastritis, unspecified, without bleeding; G47.00 Insomnia, unspecified; R16.1 Splenomegaly, not elsewhere classified; J98.09 Other diseases of bronchus, not elsewhere classified; E87.6 Hypokalemia; E83.39 Other disorders of phosphorus metabolism; D72.823 Leukemoid reaction; N50.89 Other specified disorders of the male genital organs; D18.1 Lymphangioma, any site; H26.9 Unspecified cataract; F32.9 Major depressive disorder, single episode, unspecified; F41.9 Anxiety disorder, unspecified; Z22.322 Carrier or suspected carrier of Methicillin resistant Staphylococcus aureus; Z59.9 Problem related to housing and economic circumstances, unspecified; Z79.4 Long term (current) use of insulin; Z79.891 Long term (current) use of opiate analgesic; Z86.14 Personal history of Methicillin resistant Staphylococcus aureus infection; Z86.19 Personal history of other infectious and parasitic diseases; Z87.891 Personal history of nicotine dependence
CPT/HCPCS: 31500; 31624; 36430; 36556; 36600; 36620; 43753; 51702; 70450; 70551; 71010; 71250; 74000; 74176; 76700; 80048; 80053; 80076; 80197; 80200; 80202; 81001; 82140; 82272; 82533; 82550; 82805; 82948; 83605; 83690; 83735; 83880; 84100; 84155; 84484; 85007; 85014; 85018; 85025; 85027; 85610; 85730; 86850; 86900; 86901; 86902; 86920; 86922; 87015; 87040; 87070; 87077; 87086; 87102; 87116; 87186; 87205; 87206; 87449; 87493; 87641; 87899; 93005; 93306; 93970; 94002; 94003; 94640; 95819; 96365; 96366; 96375; C9113; J0295; J0360; J1644; J1720; J1815; J1817; J1940; J1956; J2060; J2185; J2248; J2250; J2270; J2370; J2543; J2997; J3010; J3260; J3370; J3475; J3480; J7030; J7040; J7050; J7060; J7070; J7507; J7613; P9016; P9047